=== PATIENT | male | born 1955 | race Caucasian/White ===

== ENCOUNTER → 2016-06-28 | Outpatient (REF) | payer BC | END | disposition home or self-care (01) | LOC: M SFHCPLAZ 14:48 | PROVIDERS: ATTEND Internal Medicine | DX: E11.9 Type 2 diabetes mellitus without complications (principal) ==

== ENCOUNTER → 2016-07-01 | Outpatient (REF) | payer BC | END | disposition home or self-care (01) | LOC: M SFHCPLAZ 15:15 | PROVIDERS: ATTEND Internal Medicine | DX: R10.9 Unspecified abdominal pain (principal) ==

== ENCOUNTER 2016-07-11 16:03 | Emergency (ER) | payer BC ==
[2016-07-11] MEDS ORDERED: MORPHINE 4 MG/ML 1ML SYRINGE As Ordered ONE (18:15)
[2016-07-11] MEDS ORDERED: ONDANSETRON 4MG/2ML VIAL (J2405) As Ordered ONE (18:16)
[2016-07-11 18:34] LABS: BASO % 0.3 % (0.0-1.0); EOS # 0.2 K/mm3 (0.0-0.50); EOS % 2.4 % (0.0-3.0); LARGE UNSTAINED CELL # 0.1 K/mm3 (0.0-0.4); LARGE UNSTAINED CELL % 1.5 % (0.0-4.0); LYMPH % 23.3 % (24.0-44.0); MEAN CORPUSCULAR HEMOGLOBIN 30.6 pg (27.0-33.0); MEAN CORPUSCULAR HGB CONC 34.2 g/dl (32.0-36.5); MEAN CORPUSCULAR VOLUME 89.5 fl (80.0-96.0); MONO # 0.6 K/mm3 (0.0-0.8); MONO % 7.5 % (0.0-5.0); NEUTROPHILS # 5.1 K/mm3 (1.8-7.7); NEUTROPHILS % 64.9 % (36.0-66.0); PLATELET COUNT, AUTOMATED 318 k/mm3 (150-450); RED CELL DISTRIBUTION WIDTH 12.8 % (11.5-14.5); WHITE BLOOD COUNT 7.9 K/mm3 (4.0-10.0)
[2016-07-11 18:54] LABS: ALBUMIN 4.3 GM/DL (3.2-5.2); ALBUMIN/GLOBULIN RATIO 1.16 (1.00-1.93); ALKALINE PHOSPHATASE 81 U/L (45-117); ALT/SGPT 20 U/L (12-78); AMYLASE 35 U/L (25-115); ANION GAP 10 MEQ/L (8-16); AST/SGOT 11 U/L (15-37); BILIRUBIN,DIRECT 0.1 MG/DL (0.0-0.2); BILIRUBIN,TOTAL 0.3 MG/DL (0.2-1.0); BLOOD UREA NITROGEN 20 MG/DL (7-18); CALCIUM LEVEL 9.1 MG/DL (8.5-10.1); CARBON DIOXIDE LEVEL 30 MEQ/L (21-32); CHLORIDE LEVEL 102 MEQ/L (98-107); CREATININE FOR GFR 0.79 MG/DL (0.70-1.30); GLOMERULAR FILTRATION RATE > 60.0 (>56); GLUCOSE, FASTING 107 MG/DL (70-105); POTASSIUM SERUM 3.6 MEQ/L (3.5-5.1); SODIUM LEVEL 142 MEQ/L (136-145)
[2016-07-11] MEDS ORDERED: ISOVUE-370 76% 100ML VIAL (Q9967) As Ordered ONE (19:13)
--- NOTE | 2016-07-11 20:51 | EDDOCDS ---
Nurse's Notes [facility] Name: Massimo Glez Age: 61 yrs Sex: Male : 1955 Arrival Date: 07/11/2016 Time: 16:03 Bed I5 / M5 Private MD: Diagnosis: Other specified diseases of pancreas-PANCREATIC MASS IN HEAD OF PANCREAS 1.8 CM, PANCREATIC DUCT DILATION Presentation: 07/11 16:07 Presenting complaint: Patient states: pt c/o upper and lower abdominal pain over the ead past 2 1/2 weeks, worsening since yesterday. pt states he is to have upper GI scope done end of July for same problem. Adult Sepsis Screening: The patient does not have new or worsening altered mentation. Patient's respiratory rate is less than 22. Systolic blood pressure is greater than 100. Patient has a qSOFA score of 0- Negative Sepsis Screen. Suicide/Homicide risk assessment- the patient denies having any suicidal and/or homicidal ideations and does not present with any other emotional, behavioral or mental health complaints. 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 Transition of care: patient was not received from another setting of care. 16:07 Acuity: TAYLOR Level 3 ead 16:07 Method Of Arrival: Walkin/Carried/Asstd ead Triage Assessment: 16:11 General: Appears in no apparent distress, Behavior is appropriate for age, cooperative. ead Pain: Location: abdomen Pain currently is 8 out of 10 on a pain scale. Neurological: No deficits noted. GI: Abdomen is obese, Reports lower abdominal pain, upper abdominal pain, nausea. Derm: Skin is pink, warm & dry. 16:11 Pt Declines HIV testing. ead Historical: - Allergies: no known allergies; - Home Meds: 1. metformin 1,000 mg Oral tr24 twice a day 2. atorvastatin 40 mg oral tab once daily 3. irbesartan-hydrochlorothiazide 150-12.5 mg oral tab once daily 4. aspirin 81 mg Oral tab once daily 5. Vitamin D Oral 1,000 unit daily 6. pantoprazole 40 mg oral grps 2 times per day - PMHx: Hypertension; Diabetes - NIDDM: controlled; - PSHx: right knee; Cholecystectomy; cyst removed from back of skull; - Social history: Smoking status: Patient states former smoker of tobacco. No barriers to communication noted, The patient speaks fluent Moroccan, Speaks appropriately for age. - Family history: Not pertinent. - : The pt / caregiver states he / she is not on anticoagulants. Home medication list is obtained from the patient. - Exposure Risk Screening:: None identified. Screenin:30 Screening information is obtained from the patient. Primary language is Moroccan. Fall jam1 risk: No risks identified. Assistance ADL's: requires no assistance with activities of daily living. Abuse/DV Screen: The patient / caregiver reports he/she is: not in a situation that causes fear, pain or injury. Nutritional screening: On diabetic diet. Exposure Risk Screening: None identified. Advance Directives: Currently, there is no health care proxy. There is no active DNR order. There is no living will. There is no Power of Billing Administrator. Advance directive information has not previously been placed in an [facility] medical record. Further advance directive information is declined. 20:47 home support is adequate. ld5 Assessment: 18:31 General: Appears in no apparent distress, skin warm and dry color satisfactory. moist jmk pink oral mucosa. Obese abd, non distended with bowel sounds present x 4. Indicates pain to right latera, and upper abd with palpation. GI: Abdomen is flat, non- distended Bowel sounds present X 4 quads. Abd is soft X 4 quads Abd is tender to palpation X 4 quads. 19:30 General: Appears in no apparent distress, Behavior is appropriate for age, cooperative. js15 Neurological: Level of Consciousness is awake, alert, obeys commands, Oriented to person, place, time. Respiratory: Airway is patent Respiratory effort is even, unlabored, Respiratory pattern is regular, symmetrical. Derm: Skin is pink, warm & dry. 20:47 General: Appears in no apparent distress, Behavior is cooperative, quiet. Neurological: ld5 Level of Consciousness is awake, alert. Respiratory: Airway is patent Respiratory effort is even, unlabored. Vital Signs: 16:04 BP 148 / 91; Pulse 92; Resp 16; Temp 97.0(O); Pulse Ox 96% on R/A; Weight 109.32 kg lr2 (R); Height 5 ft. 10 in. (177.80 cm) (R); Pain 8/10; 20:46 BP 138 / 88; Pulse 78; Resp 18; Temp 97.8(O); Pulse Ox 95% on R/A; Pain 0/10; kb5 16:04 Body Mass Index 34.58 (109.32 kg, 177.80 cm) lr2 Vitals: 16:04 Log In Time: July 11, 2016 at 16:03. lr2 ED Course: 16:04 Patient visited by Heather Friedman. lr2 16:04 Patient moved to Waiting lr2 16:06 Patient moved to Pre RCE lr2 16:08 Triage Initiated ead 17:28 Patient visited by Ludmila Singleton RN. ead 17:28 Patient moved to Triage 2 ead 18:02 [facility]. ck7 18:02 Chris Lopez MD is Attending Physician. ck7 18:02 Patient visited by Ananth Reid RPA-C. ck7 18:14 Patient moved to I5 / M5 dsf 18:20 Urinalysis Sent. dsf 18:20 Urine Culture Sent. dsf 18:30 Pt greeted and oriented to ED. Patient advised of names of staff involved in care, jam1 location of call ingram, wait times and NPO status. Patient has correct armband on for positive identification. Placed in gown. Bed in low position. Call light in reach. Side rails up X 1. Adult w/ patient. Door closed. 18:30 Amylase Sent. jmk 18:30 Basic Metabolic Profile Sent. jmk 18:30 CBC with Diff Sent. jmk 18:30 Lipase Sent. jmk 18:30 Liver Profile Sent. jmk 18:45 Patient visited by Ananth Reid RPA-C. ck7 19:16 Patient visited by Ananth Reid RPA-C. ck7 19:54 Patient visited by Derik Loo PCA. kb5 20:33 Patient visited by Ananth Reid RPA-C. ck7 20:38 [facility] is Referral Physician. ck7 20:46 Patient visited by Derik Loo PCA. kb5 20:46 Inserted saline lock: 20 gauge in right antecubital area prior to this Rn's time. ld5 20:47 The patient / caregiver is instructed regarding the plan of care and ED course. ld5 20:47 Discontinued lock intact, bleeding controlled, pressure dressing applied, No ld5 redness/swelling at site. No procedures done that require assistance. 20:50 Patient visited by Heather Arana RN. ld5 Administered Medications: 18:29 Drug: NS 0.9% 1000 ml [sodium chloride 0.9 % intravenous solution] Route: IV; Rate: dls bolus; Site: right antecubital; 20:49 Follow up: IV Status: Completed infusion; IV Intake: 1000ml ld5 18:29 Drug: Ondansetron 4 mg [ondansetron HCl 2 mg/mL intravenous solution (2 mL)] Route: dls IVP; Site: right antecubital; 18:29 Drug: morphine 4 mg [morphine 4 mg/mL intravenous cartridge (1 mL)] Route: IVP; Site: dls right antecubital; 20:49 Follow up: Response: Confirmed pt not driving.; Pain is decreased ld5 Intake: 20:49 IV: 1000.00ml; Total: 1000.00ml. ld5 Order Results: Lab Order: Amylase; SPEC'M 07/11/16 18:28 Test: AMYLASE; Value: 35; Range: 25-115; Units: U/L; Status: F Lab Order: Basic Metabolic Profile; SPEC'M 07/11/16 18:28 Test: GLUCOSE, FASTING; Value: 107; Range: 70-105; Abnormal: Above high normal; Units: MG/DL; Status: F Test: BLOOD UREA NITROGEN; Value: 20; Range: 7-18; Abnormal: Above high normal; Units: MG/DL; Status: F Test: CREATININE FOR GFR; Value: 0.79; Range: 0.70-1.30; Units: MG/DL; Status: F Test: GLOMERULAR FILTRATION RATE; Value: > 60.0; Range: >56; Status: F Test: SODIUM LEVEL; Value: 142; Range: 136-145; Units: MEQ/L; Status: F Test: POTASSIUM SERUM; Value: 3.6; Range: 3.5-5.1; Units: MEQ/L; Status: F Test: CHLORIDE LEVEL; Value: 102; Range: 98-107; Units: MEQ/L; Status: F Test: CARBON DIOXIDE LEVEL; Value: 30; Range: 21-32; Units: MEQ/L; Status: F Test: ANION GAP; Value: 10; Range: 8-16; Units: MEQ/L; Status: F Test: CALCIUM LEVEL; Value: 9.1; Range: 8.5-10.1; Units: MG/DL; Status: F Test Note: ; Units are mL/min/1.73 m2 Chronic Kidney Disease Staging per NKF: Stage I & II GFR >=60 Normal to Mildly Decreased Stage III GFR 30-59 Moderately Decreased Stage IV GFR 15-29 Severely Decreased Stage V GFR <15 Very Little GFR Left ESRD GFR <15 on BOTTLE CARRIER Lab Order: CBC with Diff; SPEC'M 07/11/16 18:28 Test: WHITE BLOOD COUNT; Value: 7.9; Range: 4.0-10.0; Units: K/mm3; Status: F Test: RED BLOOD COUNT; Value: 4.78; Range: 4.30-6.10; Units: M/mm3; Status: F Test: HEMOGLOBIN; Value: 14.6; Range: 14.0-18.0; Units: g/dl; Status: F Test: HEMATOCRIT; Value: 42.7; Range: 42.0-52.0; Units: %; Status: F Test: MEAN CORPUSCULAR VOLUME; Value: 89.5; Range: 80.0-96.0; Units: fl; Status: F Test: MEAN CORPUSCULAR HEMOGLOBIN; Value: 30.6; Range: 27.0-33.0; Units: pg; Status: F Test: MEAN CORPUSCULAR HGB CONC; Value: 34.2; Range: 32.0-36.5; Units: g/dl; Status: F Test: RED CELL DISTRIBUTION WIDTH; Value: 12.8; Range: 11.5-14.5; Units: %; Status: F Test: PLATELET COUNT, AUTOMATED; Value: 318; Range: 150-450; Units: k/mm3; Status: F Test: NEUTROPHILS %; Value: 64.9; Range: 36.0-66.0; Units: %; Status: F Test: LYMPH %; Value: 23.3; Range: 24.0-44.0; Abnormal: Below low normal; Units: %; Status: F Test: MONO %; Value: 7.5; Range: 0.0-5.0; Abnormal: Above high normal; Units: %; Status: F Test: EOS %; Value: 2.4; Range: 0.0-3.0; Units: %; Status: F Test: BASO %; Value: 0.3; Range: 0.0-1.0; Units: %; Status: F Test: LARGE UNSTAINED CELL %; Value: 1.5; Range: 0.0-4.0; Units: %; Status: F Test: NEUTROPHILS #; Value: 5.1; Range: 1.8-7.7; Units: K/mm3; Status: F Test: LYMPH #; Value: 2.0; Range: 1.5-4.5; Units: K/mm3; Status: F Test: MONO #; Value: 0.6; Range: 0.0-0.8; Units: K/mm3; Status: F Test: EOS #; Value: 0.2; Range: 0.0-0.50; Units: K/mm3; Status: F Test: BASO #; Value: 0.0; Range: 0.0-0.2; Units: K/mm3; Status: F Test: LARGE UNSTAINED CELL #; Value: 0.1; Range: 0.0-0.4; Units: K/mm3; Status: F Lab Order: Lipase; [facility] 07/11/16 18:28 Test: LIPASE; Value: 136; Range: 73-393; Units: U/L; Status: F Lab Order: Liver Profile; [facility] 07/11/16 18:28 Test: AST/SGOT; Value: 11; Range: 15-37; Abnormal: Below low normal; Units: U/L; Status: F Test: ALT/SGPT; Value: 20; Range: 12-78; Units: U/L; Status: F Test: ALKALINE PHOSPHATASE; Value: 81; Range: 45-117; Units: U/L; Status: F Test: BILIRUBIN,TOTAL; Value: 0.3; Range: 0.2-1.0; Units: MG/DL; Status: F Test: BILIRUBIN,DIRECT; Value: 0.1; Range: 0.0-0.2; Units: MG/DL; Status: F Test: TOTAL PROTEIN; Value: 8.0; Range: 6.4-8.2; Units: GM/DL; Status: F Test: ALBUMIN; Value: 4.3; Range: 3.2-5.2; Units: GM/DL; Status: F Test: ALBUMIN/GLOBULIN RATIO; Value: 1.16; Range: 1.00-1.93; Status: F Lab Order: Urinalysis; SPEC'M 07/11/16 18:17 Test: APPEARANCE, URINE; Value: CLEAR; Range: CLEAR; Status: F Test: COLOR, URINE; Value: YELLOW; Range: YELLOW; Status: F Test: PH,URINE; Value: 5.0; Range: 5.0-9.0; Units: UNITS; Status: F Test: SPECIFIC GRAVITY URINE AUTO; Value: 1.028; Range: 1.002-1.035; Status: F Test: PROTEIN, URINE AUTO; Value: NEGATIVE; Range: NEGATIVE; Units: mg/dL; Status: F Test: GLUCOSE, URINE (UA) AUTO; Value: 1+; Range: NEGATIVE; Abnormal: Above high normal; Units: mg/dL; Status: F Test: KETONE, URINE AUTO; Value: NEGATIVE; Range: NEGATIVE; Units: mg/dL; Status: F Test: UROBILINOGEN, URINE AUTO; Value: 0.2; Range: 0.0-2.0; Units: mg/dL; Status: F Test: BILIRUBIN, URINE AUTO; Value: NEGATIVE; Range: NEGATIVE; Status: F Test: NITRITE, URINE AUTO; Value: NEGATIVE; Range: NEGATIVE; Status: F Test: LEUKOCYTE ESTERASE, URINE AUTO; Value: NEGATIVE; Range: NEGATIVE; Status: F Test: BLOOD, URINE BLOOD; Value: NEGATIVE; Range: NEGATIVE; Status: F Test: WBC, URINE AUTO; Value: 0; Range: 0-3; Units: /HPF; Status: F Test: RBC, URINE AUTO; Value: 1; Range: 0-3; Units: /HPF; Status: F Test: BACTERIA, URINE AUTO; Value: NEGATIVE; Range: NEGATIVE; Status: F Test: SQUAMOUS EPITHELIAL CELL UR AU; Value: 0; Range: 0-6; Units: /HPF; Status: F Test: MUCUS, URINE; Value: SMALL; Range: NEGATIVE; Status: F Test: HYALINE CAST, URINE AUTO; Value: 0; Range: 0-1; Units: /LPF; Status: F Lab Order: CARDIAC MARKER PANEL; SPEC'M 07/11/16 18:28 Test: CPK CREATINE PHOSPHOKINASE; Value: 152; Range: 39-308; Units: U/L; Status: F Test: CK-MB VALUE MASS; Value: 1.6; Range: 0.0-3.6; Units: NG/ML; Status: F Test: MB/CK RELATIVE INDEX; Value: 1.05; Range: < OR =4; Status: F Test: TROPONIN I; Value: < 0.02; Range: < 0.10; Units: NG/ML; Status: F Test Note: ; DIAGNOSIS CRITERIA MMB ng/ml Relative Index (RI) NON-AMI < or = 5 N/A AJ ZONE > 5 < or = 4 AMI > 5 > 4 Outcome: 20:39 Discharge ordered by Provider. ck7 20:49 Discharge Assessment: Patient awake, alert and oriented x 3. No cognitive and/or ld5 functional deficits noted. Patient verbalized understanding of disposition instructions. patient administered narcotics - yes. Pt provided with safe discharge. The following High Risk Discharge criteria are identified: None. Discharged to home ambulatory, with significant other. Condition: stable. Discharge instructions given to patient, significant other, Instructed on discharge instructions, follow up and referral plans. medication usage, no driving heavy equipment, Demonstrated understanding of instructions, medications, Pt was receptive of discharge instructions/ teaching. Prescriptions given X 2. CT Study completed. Property :Personal belongings accompany Pt. 20:50 Patient left the ED. ld5 Signatures: Narendra Bishop,RN Maisha Mcqueen, RN RN Madonna De La Fuente, SAMPLE CARRIER SAMPLE CARRIER jam1 Derik Loo, SAMPLE CARRIER SAMPLE CARRIER kb5 Heather Arana,RN RN [email or web address] Deysi Brooks,RN RN Ananth Cadet, RPA-C RPA-Cck7 Ludmila Singleton,RN Veronique Paiz,RN ADITYA jsHeather Small2 MTDD
--- NOTE | 2016-07-11 20:51 | EDDOCDS ---
Physician Documentation [facility] Name: Massimo Glez Age: 61 yrs Sex: Male : 1955 Arrival Date: 07/11/2016 Time: 16:03 Bed I5 / M5 Private MD: Disposition: 07/11/16 20:39 Discharged to Home/Self Care. Impression: Other specified diseases of pancreas - PANCREATIC MASS IN HEAD OF PANCREAS 1.8 CM, PANCREATIC DUCT DILATION. - Condition is Stable. - Discharge Instructions: Abdominal Pain, Adult. - Prescriptions for [place] 5- 325 mg Oral Tablet - take 1 tablet by ORAL route every [address] RICHARDS MDD: 4 tabs; 20 tablet. ZOFRAN ODT 4 mg - dissolve 1 tablet by ORAL route 4 times per day As needed do not chew, do not swallow whole; 10 tablet. - Medication Reconciliation, Local Pharmacy Hours form. - [facility] up: [facility]; When: Tomorrow; Reason: Recheck today's complaints, Continuance of care. - Problem is new. - Symptoms have improved. - Notes: PLEASE CALL THE [facility] TOMORROW MORNING, TELL THEM YOU WERE SEEN IN THE ER AND HAD A CT SCAN THAT SHOWS A PANCREATIC MASS AND THEY NEED TO SEE YOU TOMORROW FOR FOLLOW UP AND APPROPRIATE REFERRAL Historical: - Allergies: no known allergies; - Home Meds: 1. metformin 1,000 mg Oral tr24 twice a day 2. atorvastatin 40 mg oral tab once daily 3. irbesartan-hydrochlorothiazide 150-12.5 mg oral tab once daily 4. aspirin 81 mg Oral tab once daily 5. Vitamin D Oral 1,000 unit daily 6. pantoprazole 40 mg oral grps 2 times per day - PMHx: Hypertension; Diabetes - NIDDM: controlled; - PSHx: right knee; Cholecystectomy; cyst removed from back of skull; - Social history: Smoking status: Patient states former smoker of tobacco. No barriers to communication noted, The patient speaks fluent Uzbek, Speaks appropriately for age. - Family history: Not pertinent. - : The pt / caregiver states he / she is not on anticoagulants. Home medication list is obtained from the patient. - Exposure Risk Screening:: None identified. Vital Signs: 07/11 16:04 BP 148 / 91; Pulse 92; Resp 16; Temp 97.0(O); Pulse Ox 96% on R/A; Weight 109.32 kg / lr2 241.01 lbs (R); Height 5 ft. 10 in. (177.80 cm) (R); Pain 8/10; 20:46 BP 138 / 88; Pulse 78; Resp 18; Temp 97.8(O); Pulse Ox 95% on R/A; Pain 0/10; kb5 16:04 Body Mass Index 34.58 (109.32 kg, 177.80 cm) lr2 MDM: 18:13 Undress patient appropriately for examination ordered. ck7 18:13 IV Saline Lock ordered. ck7 18:13 NS 0.9% 1000 ml IV at bolus once ordered. ck7 18:13 Ondansetron 4 mg IVP once ordered. ck7 18:13 morphine 4 mg IVP once ordered. ck7 18:14 Amylase Ordered. EDMS 18:14 Basic Metabolic Profile Ordered. EDMS 18:14 CBC with Diff Ordered. EDMS 18:14 Lipase Ordered. EDMS 18:14 Liver Profile Ordered. EDMS 18:14 Urinalysis Ordered. EDMS 18:14 Urine Culture Ordered. EDMS 18:14 NOTHING BY MOUTH+DIET ordered. EDMS 18:14 CT ABD & PELVIS: IV Contrast Only Ordered. EDMS 18:33 CARDIAC MARKER PANEL Ordered. EDMS 19:03 Basic Metabolic Profile Reviewed. ck7 19:03 CBC with Diff Reviewed. ck7 19:03 Liver Profile Reviewed. ck7 19:03 Urinalysis Reviewed. ck7 19:03 Amylase Reviewed. ck7 19:03 Lipase Reviewed. ck7 19:03 CARDIAC MARKER PANEL Reviewed. ck7 19:17 Financial registration complete. zo Administered Medications: 18:29 Drug: NS 0.9% 1000 ml [sodium chloride 0.9 % intravenous solution] Route: IV; Rate: dls bolus; Site: right antecubital; 20:49 Follow up: IV Status: Completed infusion; IV Intake: 1000ml ld5 18:29 Drug: Ondansetron 4 mg [ondansetron HCl 2 mg/mL intravenous solution (2 mL)] Route: dls IVP; Site: right antecubital; 18:29 Drug: morphine 4 mg [morphine 4 mg/mL intravenous cartridge (1 mL)] Route: IVP; Site: dls right antecubital; 20:49 Follow up: Response: Confirmed pt not driving.; Pain is decreased ld5 Signatures: Dispatcher [employer] EDMS Narendra Bishop,RN RN Casper Acosta Laura, RN RN ld5 Ananth Reid, SPENCER-C RPA-Cck7 Ludmila SingletonRN RN Maisha Forman RN The chart was reviewed and I authenticate all verbal orders and agree with the evaluation and treatment provided.Corrections: (The following items were deleted from the chart) 18:33 18:31 CARDIAC MARKER PANEL+LAB ordered. EDMS EDMS MTDD
--- NOTE | 2016-07-12 07:05 | REP ---
CT abdomen and pelvis with IV but without oral contrast: History: Abdominal pain. Comparison CT study is from May 10, 2001. CT contrast dose: 100 ml of Isovue [address] findings: Preliminary digital rigger up radiograph demonstrates clips in the right upper quadrant. Bowel gas pattern is unremarkable. The lung bases are clear. There is some linear parenchymal fibrosis on the right lung base. The liver and the spleen are normal in size and homogeneous in texture. There is a small low density nodule in the left adrenal gland. This measures 1.8 cm in greatest diameter. It is visible in retrospect on the 2000 prior study when it measured 13 mm. This is compatible with a benign adrenal adenoma. No other adrenal lesion is seen. There are clips in the gallbladder fossa. Kidneys enhance symmetrically. There is a cyst in the lower pole of the left kidney measuring 1.0 cm in greatest diameter. This is unchanged. The pancreas is abnormal. There is atrophy of the body and tail of the pancreas with moderate dilation of the main pancreatic duct measuring up to 8 mm. There is ill-defined fullness in the pancreatic head and the findings are compatible with pancreatic malignancy. There are two small normal-sized lymph nodes anterior to the head of the pancreas. The largest of these measures 1.1 x 0.6 cm. Axial and coronal images demonstrate an ill-defined low density mass in the pancreatic head measuring 1.8 x 1.4 cm. There is subtle effacement of the portosplenic venous confluence by the mass lesion. No focal liver lesion is seen. No other prominent lymph nodes are seen. A normal appendix is seen. There is diverticulosis of the sigmoid colon without CT evidence of diverticulitis. A normal appendix is visible in the right lower quadrant. No bony destructive lesion is seen. Incidental note is made of bilateral L5 spondylolysis and a grade 1, 8 mm, L5-S1 spondylolisthesis. Impression: 1. Findings compatible with pancreatic malignancy including an ill-defined 18 mm low density mass lesion in the head of the pancreas, dilation of the pancreatic duct, atrophy of the body and tail of the pancreas, and two small lymph nodes anterior to the head of the pancreas. There is effacement of the right lateral wall of the portosplenic venous confluence. No hepatic mass lesion is seen. 2. Post cholecystectomy. 3. 1.8 cm low density left adrenal nodule compatible with benign adrenal adenoma. 4. Small cyst lower pole left kidney. 5. Bilateral L5 spondylolysis and grade 1 L5-S1 spondylolisthesis. Signed by Delbert Childress MD 07/12/2016 08:31 A
--- NOTE | 2016-07-13 21:51 | EDDOCDS ---
Physician Documentation [facility] Name: Massimo Glez Age: 61 yrs Sex: Male : 1955 Arrival Date: 07/11/2016 Time: 16:03 Bed I5 / M5 Private MD: Disposition: 07/11/16 20:39 Discharged to Home/Self Care. Impression: Other specified diseases of pancreas - PANCREATIC MASS IN HEAD OF PANCREAS 1.8 CM, PANCREATIC DUCT DILATION. - Condition is Stable. - Discharge Instructions: Abdominal Pain, Adult. - Prescriptions for [place] 5- 325 mg Oral Tablet - take 1 tablet by ORAL route every [address] RICHARDS MDD: 4 tabs; 20 tablet. ZOFRAN ODT 4 mg - dissolve 1 tablet by ORAL route 4 times per day As needed do not chew, do not swallow whole; 10 tablet. - Medication Reconciliation, Local Pharmacy Hours form. - [facility] up: [facility]; When: Tomorrow; Reason: Recheck today's complaints, Continuance of care. - Problem is new. - Symptoms have improved. - Notes: PLEASE CALL THE [facility] TOMORROW MORNING, TELL THEM YOU WERE SEEN IN THE ER AND HAD A CT SCAN THAT SHOWS A PANCREATIC MASS AND THEY NEED TO SEE YOU TOMORROW FOR FOLLOW UP AND APPROPRIATE REFERRAL Historical: - Allergies: no known allergies; - Home Meds: 1. metformin 1,000 mg Oral tr24 twice a day 2. atorvastatin 40 mg oral tab once daily 3. irbesartan-hydrochlorothiazide 150-12.5 mg oral tab once daily 4. aspirin 81 mg Oral tab once daily 5. Vitamin D Oral 1,000 unit daily 6. pantoprazole 40 mg oral grps 2 times per day - PMHx: Hypertension; Diabetes - NIDDM: controlled; - PSHx: right knee; Cholecystectomy; cyst removed from back of skull; - Social history: Smoking status: Patient states former smoker of tobacco. No barriers to communication noted, The patient speaks fluent Swedish, Speaks appropriately for age. - Family history: Not pertinent. - : The pt / caregiver states he / she is not on anticoagulants. Home medication list is obtained from the patient. - Exposure Risk Screening:: None identified. Vital Signs: 07/11 16:04 BP 148 / 91; Pulse 92; Resp 16; Temp 97.0(O); Pulse Ox 96% on R/A; Weight 109.32 kg / lr2 241.01 lbs (R); Height 5 ft. 10 in. (177.80 cm) (R); Pain 8/10; 20:46 BP 138 / 88; Pulse 78; Resp 18; Temp 97.8(O); Pulse Ox 95% on R/A; Pain 0/10; kb5 16:04 Body Mass Index 34.58 (109.32 kg, 177.80 cm) lr2 MDM: 18:13 Undress patient appropriately for examination ordered. ck7 18:13 IV Saline Lock ordered. ck7 18:13 NS 0.9% 1000 ml IV at bolus once ordered. ck7 18:13 Ondansetron 4 mg IVP once ordered. ck7 18:13 morphine 4 mg IVP once ordered. ck7 18:14 Amylase Ordered. EDMS 18:14 Basic Metabolic Profile Ordered. EDMS 18:14 CBC with Diff Ordered. EDMS 18:14 Lipase Ordered. EDMS 18:14 Liver Profile Ordered. EDMS 18:14 Urinalysis Ordered. EDMS 18:14 Urine Culture Ordered. EDMS 18:14 NOTHING BY MOUTH+DIET ordered. EDMS 18:14 CT ABD & PELVIS: IV Contrast Only Ordered. EDMS 18:33 CARDIAC MARKER PANEL Ordered. EDMS 19:03 Basic Metabolic Profile Reviewed. ck7 19:03 CBC with Diff Reviewed. ck7 19:03 Liver Profile Reviewed. ck7 19:03 Urinalysis Reviewed. ck7 19:03 Amylase Reviewed. ck7 19:03 Lipase Reviewed. ck7 19:03 CARDIAC MARKER PANEL Reviewed. ck7 19:17 Financial registration complete. zo 22:01 [facility] Payment Agreement was scanned into [employer] and attached to record. zo 07/13 07:01 ED course: [facility] formal report of ct abd/p for fu. mlg . ml Administered Medications: 07/11 18:29 Drug: NS 0.9% 1000 ml [sodium chloride 0.9 % intravenous solution] Route: IV; Rate: dls bolus; Site: right antecubital; 20:49 Follow up: IV Status: Completed infusion; IV Intake: 1000ml ld5 18:29 Drug: Ondansetron 4 mg [ondansetron HCl 2 mg/mL intravenous solution (2 mL)] Route: dls IVP; Site: right antecubital; 18:29 Drug: morphine 4 mg [morphine 4 mg/mL intravenous cartridge (1 mL)] Route: IVP; Site: dls right antecubital; 20:49 Follow up: Response: Confirmed pt not driving.; Pain is decreased ld5 Signatures: Dispatcher [employer] EDMS Valentine Fulton MD MD ml Knapp, Jean, RN RN Casper Acosta Laura, RN RN ld5 Ananth Reid, RPA-C RPA-Cck7 Ludmila Singleton RN RN ead Scott, Debra RN dls The chart was reviewed and I authenticate all verbal orders and agree with the evaluation and treatment provided.Corrections: (The following items were deleted from the chart) 18:33 18:31 CARDIAC MARKER PANEL+LAB ordered. EDMS EDMS Attachments: 22:01 [facility] Payment Agreement zo Chart [facility]
--- NOTE | 2016-07-13 21:51 | EDDOCDS ---
Physician Documentation [facility] Name: Massimo Glez Age: 61 yrs Sex: Male : 1955 Arrival Date: 07/11/2016 Time: 16:03 Bed I5 / M5 Private MD: Disposition: 07/11/16 20:39 Discharged to Home/Self Care. Impression: Other specified diseases of pancreas - PANCREATIC MASS IN HEAD OF PANCREAS 1.8 CM, PANCREATIC DUCT DILATION. - Condition is Stable. - Discharge Instructions: Abdominal Pain, Adult. - Prescriptions for [place] 5- 325 mg Oral Tablet - take 1 tablet by ORAL route every [address] RICHARDS MDD: 4 tabs; 20 tablet. ZOFRAN ODT 4 mg - dissolve 1 tablet by ORAL route 4 times per day As needed do not chew, do not swallow whole; 10 tablet. - Medication Reconciliation, Local Pharmacy Hours form. - Follow up: [facility]; When: Tomorrow; Reason: Recheck today's complaints, Continuance of care. - Problem is new. - Symptoms have improved. - Notes: PLEASE CALL [facility] TOMORROW MORNING, TELL THEM YOU WERE SEEN IN THE ER AND HAD A CT SCAN THAT SHOWS A PANCREATIC MASS AND THEY NEED TO SEE YOU TOMORROW FOR FOLLOW UP AND APPROPRIATE REFERRAL Historical: - Allergies: no known allergies; - Home Meds: 1. metformin 1,000 mg Oral tr24 twice a day 2. atorvastatin 40 mg oral tab once daily 3. irbesartan-hydrochlorothiazide 150-12.5 mg oral tab once daily 4. aspirin 81 mg Oral tab once daily 5. Vitamin D Oral 1,000 unit daily 6. pantoprazole 40 mg oral grps 2 times per day - PMHx: Hypertension; Diabetes - NIDDM: controlled; - PSHx: right knee; Cholecystectomy; cyst removed from back of skull; - Social history: Smoking status: Patient states former smoker of tobacco. No barriers to communication noted, The patient speaks fluent Hungarian, Speaks appropriately for age. - Family history: Not pertinent. - : The pt / caregiver states he / she is not on anticoagulants. Home medication list is obtained from the patient. - Exposure Risk Screening:: None identified. Vital Signs: 07/11 16:04 BP 148 / 91; Pulse 92; Resp 16; Temp 97.0(O); Pulse Ox 96% on R/A; Weight 109.32 kg / lr2 241.01 lbs (R); Height 5 ft. 10 in. (177.80 cm) (R); Pain 8/10; 20:46 BP 138 / 88; Pulse 78; Resp 18; Temp 97.8(O); Pulse Ox 95% on R/A; Pain 0/10; kb5 16:04 Body Mass Index 34.58 (109.32 kg, 177.80 cm) lr2 MDM: 18:13 Undress patient appropriately for examination ordered. ck7 18:13 IV Saline Lock ordered. ck7 18:13 NS 0.9% 1000 ml IV at bolus once ordered. ck7 18:13 Ondansetron 4 mg IVP once ordered. ck7 18:13 morphine 4 mg IVP once ordered. ck7 18:14 Amylase Ordered. EDMS 18:14 Basic Metabolic Profile Ordered. EDMS 18:14 CBC with Diff Ordered. EDMS 18:14 Lipase Ordered. EDMS 18:14 Liver Profile Ordered. EDMS 18:14 Urinalysis Ordered. EDMS 18:14 Urine Culture Ordered. EDMS 18:14 NOTHING BY MOUTH+DIET ordered. EDMS 18:14 CT ABD & PELVIS: IV Contrast Only Ordered. EDMS 18:33 CARDIAC MARKER PANEL Ordered. EDMS 19:03 Basic Metabolic Profile Reviewed. ck7 19:03 CBC with Diff Reviewed. ck7 19:03 Liver Profile Reviewed. ck7 19:03 Urinalysis Reviewed. ck7 19:03 Amylase Reviewed. ck7 19:03 Lipase Reviewed. ck7 19:03 CARDIAC MARKER PANEL Reviewed. ck7 19:17 Financial registration complete. zo 22:01 [facility] [place] Agreement was scanned into [employer] and attached to record. zo 07/13 07:01 ED course: [facility] formal report of ct abd/p for fu. mlg . ml Administered Medications: 07/11 18:29 Drug: NS 0.9% 1000 ml [sodium chloride 0.9 % intravenous solution] Route: IV; Rate: dls bolus; Site: right antecubital; 20:49 Follow up: IV Status: Completed infusion; IV Intake: 1000ml ld5 18:29 Drug: Ondansetron 4 mg [ondansetron HCl 2 mg/mL intravenous solution (2 mL)] Route: dls IVP; Site: right antecubital; 18:29 Drug: morphine 4 mg [morphine 4 mg/mL intravenous cartridge (1 mL)] Route: IVP; Site: dls right antecubital; 20:49 Follow up: Response: Confirmed pt not driving.; Pain is decreased ld5 Signatures: Dispatcher [employer] EDMS Valentine Fulton MD MD ml Knapp, Jean, RN RN Casper Acosta Laura, RN RN ld5 Ananth Reid, RPA-C RPA-Cck7 Ludmila Singleton RN RN ead Scott, Debra RN dls The chart was reviewed and I authenticate all verbal orders and agree with the evaluation and treatment provided.Corrections: (The following items were deleted from the chart) 18:33 18:31 CARDIAC MARKER PANEL+LAB ordered. EDMS EDMS Attachments: 22:01 [facility] Payment Agreement zo Chart [facility]
--- NOTE | 2016-07-13 21:51 | EDDOCDS ---
Nurse's Notes [facility] Name: Massimo Glez Age: 61 yrs Sex: Male : 1955 Arrival Date: 07/11/2016 Time: 16:03 Bed I5 / M5 Private MD: Diagnosis: Other specified diseases of pancreas-PANCREATIC MASS IN HEAD OF PANCREAS 1.8 CM, PANCREATIC DUCT DILATION Presentation: 07/11 16:07 Presenting complaint: Patient states: pt c/o upper and lower abdominal pain over the ead past 2 1/2 weeks, worsening since yesterday. pt states he is to have upper GI scope done end of July for same problem. Adult Sepsis Screening: The patient does not have new or worsening altered mentation. Patient's respiratory rate is less than 22. Systolic blood pressure is greater than 100. Patient has a qSOFA score of 0- Negative Sepsis Screen. Suicide/Homicide risk assessment- the patient denies having any suicidal and/or homicidal ideations and does not present with any other emotional, behavioral or mental health complaints. Status: Patient is not a fuel injection servicer or dependent. Transition of care: patient was not received from another setting of care. 16:07 Acuity: TAYLOR Level 3 ead 16:07 Method Of Arrival: Walkin/Carried/Asstd ead Triage Assessment: 16:11 General: Appears in no apparent distress, Behavior is appropriate for age, cooperative. ead Pain: Location: abdomen Pain currently is 8 out of 10 on a pain scale. Neurological: No deficits noted. GI: Abdomen is obese, Reports lower abdominal pain, upper abdominal pain, nausea. Derm: Skin is pink, warm & dry. 16:11 Pt Declines HIV testing. ead Historical: - Allergies: no known allergies; - Home Meds: 1. metformin 1,000 mg Oral tr24 twice a day 2. atorvastatin 40 mg oral tab once daily 3. irbesartan-hydrochlorothiazide 150-12.5 mg oral tab once daily 4. aspirin 81 mg Oral tab once daily 5. Vitamin D Oral 1,000 unit daily 6. pantoprazole 40 mg oral grps 2 times per day - PMHx: Hypertension; Diabetes - NIDDM: controlled; - PSHx: right knee; Cholecystectomy; cyst removed from back of skull; - Social history: Smoking status: Patient states former smoker of tobacco. No barriers to communication noted, The patient speaks fluent Austrian, Speaks appropriately for age. - Family history: Not pertinent. - : The pt / caregiver states he / she is not on anticoagulants. Home medication list is obtained from the patient. - Exposure Risk Screening:: None identified. Screenin:30 Screening information is obtained from the patient. Primary language is Austrian. Fall jam1 risk: No risks identified. Assistance ADL's: requires no assistance with activities of daily living. Abuse/DV Screen: The patient / caregiver reports he/she is: not in a situation that causes fear, pain or injury. Nutritional screening: On diabetic diet. Exposure Risk Screening: None identified. Advance Directives: Currently, there is no health care proxy. There is no active DNR order. There is no living will. There is no Power of Teacher Associate. Advance directive information has not previously been placed in an [facility] medical record. Further advance directive information is declined. 20:47 home support is adequate. ld5 Assessment: 18:31 General: Appears in no apparent distress, skin warm and dry color satisfactory. moist jmk pink oral mucosa. Obese abd, non distended with bowel sounds present x 4. Indicates pain to right latera, and upper abd with palpation. GI: Abdomen is flat, non- distended Bowel sounds present X 4 quads. Abd is soft X 4 quads Abd is tender to palpation X 4 quads. 19:30 General: Appears in no apparent distress, Behavior is appropriate for age, cooperative. js15 Neurological: Level of Consciousness is awake, alert, obeys commands, Oriented to person, place, time. Respiratory: Airway is patent Respiratory effort is even, unlabored, Respiratory pattern is regular, symmetrical. Derm: Skin is pink, warm & dry. 20:47 General: Appears in no apparent distress, Behavior is cooperative, quiet. Neurological: ld5 Level of Consciousness is awake, alert. Respiratory: Airway is patent Respiratory effort is even, unlabored. Vital Signs: 16:04 BP 148 / 91; Pulse 92; Resp 16; Temp 97.0(O); Pulse Ox 96% on R/A; Weight 109.32 kg lr2 (R); Height 5 ft. 10 in. (177.80 cm) (R); Pain 8/10; 20:46 BP 138 / 88; Pulse 78; Resp 18; Temp 97.8(O); Pulse Ox 95% on R/A; Pain 0/10; kb5 16:04 Body Mass Index 34.58 (109.32 kg, 177.80 cm) lr2 Vitals: 16:04 Log In Time: July 11, 2016 at 16:03. lr2 ED Course: 16:04 Patient visited by Heather Friedman. lr2 16:04 Patient moved to Waiting lr2 16:06 Patient moved to Pre RCE lr2 16:08 Triage Initiated ead 17:28 Patient visited by Ludmila Singleton RN. ead 17:28 Patient moved to Triage 2 ead 18:02 [facility] Reid [facility]-C [facility] ck7 18:02 Chris Lopez MD is Attending Physician. ck7 18:02 Patient visited by Ananth Reid RPA-C. ck7 18:14 Patient moved to I5 / M5 dsf 18:20 Urinalysis Sent. dsf 18:20 Urine Culture Sent. dsf 18:30 Pt greeted and oriented to ED. Patient advised of names of staff involved in care, jam1 location of call ingram, wait times and NPO status. Patient has correct armband on for positive identification. Placed in gown. Bed in low position. Call light in reach. Side rails up X 1. Adult w/ patient. Door closed. 18:30 Amylase Sent. jmk 18:30 Basic Metabolic Profile Sent. jmk 18:30 CBC with Diff Sent. jmk 18:30 Lipase Sent. jmk 18:30 Liver Profile Sent. jmk 18:45 Patient visited by Ananth Reid RPA-C. ck7 19:16 Patient visited by Ananth Reid RPA-C. ck7 19:54 Patient visited by Derik Loo PCA. kb5 20:33 Patient visited by Ananth Reid RPA-C. ck7 20:38 [facility] is Referral Physician. ck7 20:46 Patient visited by Derik Loo PCA. kb5 20:46 Inserted saline lock: 20 gauge in right antecubital area prior to this Rn's time. ld5 20:47 The patient / caregiver is instructed regarding the plan of care and ED course. ld5 20:47 Discontinued lock intact, bleeding controlled, pressure dressing applied, No ld5 redness/swelling at site. No procedures done that require assistance. 20:50 Patient visited by Heather Arana RN. ld5 22:01 [facility] Payment Agreement was scanned into [employer] and attached to record. zo 07/12 07:23 CT ABD & PELVIS: IV Contrast Only Returned. EDMS Administered Medications: 07/11 18:29 Drug: NS 0.9% 1000 ml [sodium chloride 0.9 % intravenous solution] Route: IV; Rate: dls bolus; Site: right antecubital; 20:49 Follow up: IV Status: Completed infusion; IV Intake: 1000ml ld5 18:29 Drug: Ondansetron 4 mg [ondansetron HCl 2 mg/mL intravenous solution (2 mL)] Route: dls IVP; Site: right antecubital; 18:29 Drug: morphine 4 mg [morphine 4 mg/mL intravenous cartridge (1 mL)] Route: IVP; Site: dls right antecubital; 20:49 Follow up: Response: Confirmed pt not driving.; Pain is decreased ld5 Intake: 20:49 IV: 1000.00ml; Total: 1000.00ml. ld5 Order Results: Lab Order: Amylase; SPEC'M 07/11/16 18:28 Test: AMYLASE; Value: 35; Range: 25-115; Units: U/L; Status: F Lab Order: Basic Metabolic Profile; SPEC'M 07/11/16 18:28 Test: GLUCOSE, FASTING; Value: 107; Range: 70-105; Abnormal: Above high normal; Units: MG/DL; Status: F Test: BLOOD UREA NITROGEN; Value: 20; Range: 7-18; Abnormal: Above high normal; Units: MG/DL; Status: F Test: CREATININE FOR GFR; Value: 0.79; Range: 0.70-1.30; Units: MG/DL; Status: F Test: GLOMERULAR FILTRATION RATE; Value: > 60.0; Range: >56; Status: F Test: SODIUM LEVEL; Value: 142; Range: 136-145; Units: MEQ/L; Status: F Test: POTASSIUM SERUM; Value: 3.6; Range: 3.5-5.1; Units: MEQ/L; Status: F Test: CHLORIDE LEVEL; Value: 102; Range: 98-107; Units: MEQ/L; Status: F Test: CARBON DIOXIDE LEVEL; Value: 30; Range: 21-32; Units: MEQ/L; Status: F Test: ANION GAP; Value: 10; Range: 8-16; Units: MEQ/L; Status: F Test: CALCIUM LEVEL; Value: 9.1; Range: 8.5-10.1; Units: MG/DL; Status: F Test Note: ; Units are mL/min/1.73 m2 Chronic Kidney Disease Staging per NKF: Stage I & II GFR >=60 Normal to Mildly Decreased Stage III GFR 30-59 Moderately Decreased Stage IV GFR 15-29 Severely Decreased Stage V GFR <15 Very Little GFR Left ESRD GFR <15 on SESSIONS CLERK Lab Order: CBC with Diff; SPEC'M 07/11/16 18:28 Test: WHITE BLOOD COUNT; Value: 7.9; Range: 4.0-10.0; Units: K/mm3; Status: F Test: RED BLOOD COUNT; Value: 4.78; Range: 4.30-6.10; Units: M/mm3; Status: F Test: HEMOGLOBIN; Value: 14.6; Range: 14.0-18.0; Units: g/dl; Status: F Test: HEMATOCRIT; Value: 42.7; Range: 42.0-52.0; Units: %; Status: F Test: MEAN CORPUSCULAR VOLUME; Value: 89.5; Range: 80.0-96.0; Units: fl; Status: F Test: MEAN CORPUSCULAR HEMOGLOBIN; Value: 30.6; Range: 27.0-33.0; Units: pg; Status: F Test: MEAN CORPUSCULAR HGB CONC; Value: 34.2; Range: 32.0-36.5; Units: g/dl; Status: F Test: RED CELL DISTRIBUTION WIDTH; Value: 12.8; Range: 11.5-14.5; Units: %; Status: F Test: PLATELET COUNT, AUTOMATED; Value: 318; Range: 150-450; Units: k/mm3; Status: F Test: NEUTROPHILS %; Value: 64.9; Range: 36.0-66.0; Units: %; Status: F Test: LYMPH %; Value: 23.3; Range: 24.0-44.0; Abnormal: Below low normal; Units: %; Status: F Test: MONO %; Value: 7.5; Range: 0.0-5.0; Abnormal: Above high normal; Units: %; Status: F Test: EOS %; Value: 2.4; Range: 0.0-3.0; Units: %; Status: F Test: BASO %; Value: 0.3; Range: 0.0-1.0; Units: %; Status: F Test: LARGE UNSTAINED CELL %; Value: 1.5; Range: 0.0-4.0; Units: %; Status: F Test: NEUTROPHILS #; Value: 5.1; Range: 1.8-7.7; Units: K/mm3; Status: F Test: LYMPH #; Value: 2.0; Range: 1.5-4.5; Units: K/mm3; Status: F Test: MONO #; Value: 0.6; Range: 0.0-0.8; Units: K/mm3; Status: F Test: EOS #; Value: 0.2; Range: 0.0-0.50; Units: K/mm3; Status: F Test: BASO #; Value: 0.0; Range: 0.0-0.2; Units: K/mm3; Status: F Test: LARGE UNSTAINED CELL #; Value: 0.1; Range: 0.0-0.4; Units: K/mm3; Status: F Lab Order: Lipase; [facility] 07/11/16 18:28 Test: LIPASE; Value: 136; Range: 73-393; Units: U/L; Status: F Lab Order: Liver Profile; [facility] 07/11/16 18:28 Test: AST/SGOT; Value: 11; Range: 15-37; Abnormal: Below low normal; Units: U/L; Status: F Test: ALT/SGPT; Value: 20; Range: 12-78; Units: U/L; Status: F Test: ALKALINE PHOSPHATASE; Value: 81; Range: 45-117; Units: U/L; Status: F Test: BILIRUBIN,TOTAL; Value: 0.3; Range: 0.2-1.0; Units: MG/DL; Status: F Test: BILIRUBIN,DIRECT; Value: 0.1; Range: 0.0-0.2; Units: MG/DL; Status: F Test: TOTAL PROTEIN; Value: 8.0; Range: 6.4-8.2; Units: GM/DL; Status: F Test: ALBUMIN; Value: 4.3; Range: 3.2-5.2; Units: GM/DL; Status: F Test: ALBUMIN/GLOBULIN RATIO; Value: 1.16; Range: 1.00-1.93; Status: F Lab Order: Urinalysis; SPEC'M 07/11/16 18:17 Test: APPEARANCE, URINE; Value: CLEAR; Range: CLEAR; Status: F Test: COLOR, URINE; Value: YELLOW; Range: YELLOW; Status: F Test: PH,URINE; Value: 5.0; Range: 5.0-9.0; Units: UNITS; Status: F Test: SPECIFIC GRAVITY URINE AUTO; Value: 1.028; Range: 1.002-1.035; Status: F Test: PROTEIN, URINE AUTO; Value: NEGATIVE; Range: NEGATIVE; Units: mg/dL; Status: F Test: GLUCOSE, URINE (UA) AUTO; Value: 1+; Range: NEGATIVE; Abnormal: Above high normal; Units: mg/dL; Status: F Test: KETONE, URINE AUTO; Value: NEGATIVE; Range: NEGATIVE; Units: mg/dL; Status: F Test: UROBILINOGEN, URINE AUTO; Value: 0.2; Range: 0.0-2.0; Units: mg/dL; Status: F Test: BILIRUBIN, URINE AUTO; Value: NEGATIVE; Range: NEGATIVE; Status: F Test: NITRITE, URINE AUTO; Value: NEGATIVE; Range: NEGATIVE; Status: F Test: LEUKOCYTE ESTERASE, URINE AUTO; Value: NEGATIVE; Range: NEGATIVE; Status: F Test: BLOOD, URINE BLOOD; Value: NEGATIVE; Range: NEGATIVE; Status: F Test: WBC, URINE AUTO; Value: 0; Range: 0-3; Units: /HPF; Status: F Test: RBC, URINE AUTO; Value: 1; Range: 0-3; Units: /HPF; Status: F Test: BACTERIA, URINE AUTO; Value: NEGATIVE; Range: NEGATIVE; Status: F Test: SQUAMOUS EPITHELIAL CELL UR AU; Value: 0; Range: 0-6; Units: /HPF; Status: F Test: MUCUS, URINE; Value: SMALL; Range: NEGATIVE; Status: F Test: HYALINE CAST, URINE AUTO; Value: 0; Range: 0-1; Units: /LPF; Status: F Lab Order: Urine Culture; SPEC'M 07/11/16 18:17 Test: URINE CULTURE; Value: <EXTERNAL COMMENT eCWMed> FULL REPORT IN LAB NOTES (eCW and Medent).; Status: F Test: URINE CULTURE; Value: URINE CULTURE RESULT NO GROWTH; Status: F Lab Order: CARDIAC MARKER PANEL; SPEC'M 07/11/16 18:28 Test: CPK CREATINE PHOSPHOKINASE; Value: 152; Range: 39-308; Units: U/L; Status: F Test: CK-MB VALUE MASS; Value: 1.6; Range: 0.0-3.6; Units: NG/ML; Status: F Test: MB/CK RELATIVE INDEX; Value: 1.05; Range: < OR =4; Status: F Test: TROPONIN I; Value: < 0.02; Range: < 0.10; Units: NG/ML; Status: F Test Note: ; DIAGNOSIS CRITERIA MMB ng/ml Relative Index (RI) NON-AMI < or = 5 N/A AJ ZONE > 5 < or = 4 AMI > 5 > 4 Radiology Order: CT ABD & PELVIS: IV Contrast Only Test: CT ABD & PELVIS: IV Contrast Only REASON FOR EXAMINATION: Abdomen Pain; CT abdomen and pelvis with IV but without oral contrast:; ; History: Abdominal pain.; ; Comparison CT study is from May 10, 2001.; ; CT contrast dose: 100 ml of Isovue 370 is administered intravenously.; ; CT findings: Preliminary digital photo offset printer radiograph demonstrates clips in the; right upper quadrant. Bowel gas pattern is unremarkable. The lung bases are; clear. There is some linear parenchymal fibrosis on the right lung base. The; liver and the spleen are normal in size and homogeneous in texture. There is a; small low density nodule in the left adrenal gland. This measures 1.8 cm in; greatest diameter. It is visible in retrospect on the 2000 prior study when it; measured 13 mm. This is compatible with a benign adrenal adenoma. No other; adrenal lesion is seen. There are clips in the gallbladder fossa. Kidneys; enhance symmetrically. There is a cyst in the lower pole of the left kidney; measuring 1.0 cm in greatest diameter. This is unchanged.; ; The pancreas is abnormal. There is atrophy of the body and tail of the pancreas; with moderate dilation of the main pancreatic duct measuring up to 8 mm. There; is ill-defined fullness in the pancreatic head and the findings are compatible; with pancreatic malignancy. There are two small normal-sized lymph nodes; anterior to the head of the pancreas. The largest of these measures 1.1 x 0.6; cm. Axial and coronal images demonstrate an ill-defined low density mass in the; pancreatic head measuring 1.8 x 1.4 cm. There is subtle effacement of the; portosplenic venous confluence by the mass lesion. No focal liver lesion is; seen. No other prominent lymph nodes are seen. A normal appendix is seen.; There is diverticulosis of the sigmoid colon without CT evidence of; diverticulitis. A normal appendix is visible in the right lower quadrant. No; bony destructive lesion is seen.; ; Incidental note is made of bilateral L5 spondylolysis and a grade 1, 8 mm, L5-S1; spondylolisthesis.; ; Impression:; ; 1. Findings compatible with pancreatic malignancy including an ill-defined 18 mm; low density mass lesion in the head of the pancreas, dilation of the pancreatic; duct, atrophy of the body and tail of the pancreas, and two small lymph nodes; anterior to the head of the pancreas. There is effacement of the right lateral; wall of the portosplenic venous confluence. No hepatic mass lesion is seen.; ; 2. Post cholecystectomy.; ; 3. 1.8 cm low density left adrenal nodule compatible with benign adrenal; adenoma.; ; 4. Small cyst lower pole left kidney.; ; 5. Bilateral L5 spondylolysis and grade 1 L5-S1 spondylolisthesis.; ; ; Signed by; Delbert Childress MD 07/12/2016 08:31 A; Outcome: 20:39 Discharge ordered by Provider. ck7 20:49 Discharge Assessment: Patient awake, alert and oriented x 3. No cognitive and/or ld5 functional deficits noted. Patient verbalized understanding of disposition instructions. patient administered narcotics - yes. Pt provided with safe discharge. The following High Risk Discharge criteria are identified: None. Discharged to home ambulatory, with significant other. Condition: stable. Discharge instructions given to patient, significant other, Instructed on discharge instructions, follow up and referral plans. medication usage, no driving heavy equipment, Demonstrated understanding of instructions, medications, Pt was receptive of discharge instructions/ teaching. Prescriptions given X 2. CT Study completed. Property :Personal belongings accompany Pt. 20:50 Patient left the ED. ld5 Signatures: Dispatcher [employer] EDMS Narendra Bishop,RN RN Maisha Pollock RN RN nneka Beyer Madonna, PAINT DEPARTMENT SUPERVISOR PAINT DEPARTMENT SUPERVISOR jam1 Casper Fuller Kristopher, PAINT DEPARTMENT SUPERVISOR PAINT DEPARTMENT SUPERVISOR kb5 Heather Arana,RN RN ld5 Deysi Brooks,RN RN Ananth Cadet, RPA-C RPA-Cck7 Ludmila Singleton,RN RN Veronique FloresRN RN js15 Heather Friedman lr2 Chart Complete CRUZD
--- NOTE | 2016-07-18 16:34 | EDDOCDS ---
Physician Documentation [facility], [place] Name: Massimo Glez Age: 61 yrs Sex: Male : 1955 Arrival Date: 07/11/2016 Time: 16:03 Bed I5 / M5 Private MD: Disposition: 07/11/16 20:39 Discharged to Home/Self Care. Impression: Other specified diseases of pancreas - PANCREATIC MASS IN HEAD OF PANCREAS 1.8 CM, PANCREATIC DUCT DILATION. - Condition is Stable. - Discharge Instructions: Abdominal Pain, Adult. - Prescriptions for [place] 5- 325 mg Oral Tablet - take 1 tablet by ORAL route every [address] RICHARDS MDD: 4 tabs; 20 tablet. ZOFRAN ODT 4 mg - dissolve 1 tablet by ORAL route 4 times per day As needed do not chew, do not swallow whole; 10 tablet. - Medication Reconciliation, Local Pharmacy Hours form. - [facility] up: [facility]; When: Tomorrow; Reason: Recheck today's complaints, Continuance of care. - Problem is new. - Symptoms have improved. - Notes: PLEASE CALL THE [facility] TOMORROW MORNING, TELL THEM YOU WERE SEEN IN THE ER AND HAD A CT SCAN THAT SHOWS A PANCREATIC MASS AND THEY NEED TO SEE YOU TOMORROW FOR FOLLOW UP AND APPROPRIATE REFERRAL Historical: - Allergies: no known allergies; - Home Meds: 1. metformin 1,000 mg Oral tr24 twice a day 2. atorvastatin 40 mg oral tab once daily 3. irbesartan-hydrochlorothiazide 150-12.5 mg oral tab once daily 4. aspirin 81 mg Oral tab once daily 5. Vitamin D Oral 1,000 unit daily 6. pantoprazole 40 mg oral grps 2 times per day - PMHx: Hypertension; Diabetes - NIDDM: controlled; - PSHx: right knee; Cholecystectomy; cyst removed from back of skull; - Social history: Smoking status: Patient states former smoker of tobacco. No barriers to communication noted, The patient speaks fluent Persian, Speaks appropriately for age. - Family history: Not pertinent. - : The pt / caregiver states he / she is not on anticoagulants. Home medication list is obtained from the patient. - Exposure Risk Screening:: None identified. Vital Signs: 07/11 16:04 BP 148 / 91; Pulse 92; Resp 16; Temp 97.0(O); Pulse Ox 96% on R/A; Weight 109.32 kg / lr2 241.01 lbs (R); Height 5 ft. 10 in. (177.80 cm) (R); Pain 8/10; 20:46 BP 138 / 88; Pulse 78; Resp 18; Temp 97.8(O); Pulse Ox 95% on R/A; Pain 0/10; kb5 16:04 Body Mass Index 34.58 (109.32 kg, 177.80 cm) lr2 MDM: 18:13 Undress patient appropriately for examination ordered. ck7 18:13 IV Saline Lock ordered. ck7 18:13 NS 0.9% 1000 ml IV at bolus once ordered. ck7 18:13 Ondansetron 4 mg IVP once ordered. ck7 18:13 morphine 4 mg IVP once ordered. ck7 18:14 Amylase Ordered. EDMS 18:14 Basic Metabolic Profile Ordered. EDMS 18:14 CBC with Diff Ordered. EDMS 18:14 Lipase Ordered. EDMS 18:14 Liver Profile Ordered. EDMS 18:14 Urinalysis Ordered. EDMS 18:14 Urine Culture Ordered. EDMS 18:14 NOTHING BY MOUTH+DIET ordered. EDMS 18:14 CT ABD & PELVIS: IV Contrast Only Ordered. EDMS 18:33 CARDIAC MARKER PANEL Ordered. EDMS 19:03 Basic Metabolic Profile Reviewed. ck7 19:03 CBC with Diff Reviewed. ck7 19:03 Liver Profile Reviewed. ck7 19:03 Urinalysis Reviewed. ck7 19:03 Amylase Reviewed. ck7 19:03 Lipase Reviewed. ck7 19:03 CARDIAC MARKER PANEL Reviewed. ck7 19:17 Financial registration complete. zo 22:01 [facility] Payment Agreement was scanned into [employer] and attached to record. zo 07/13 07:01 ED course: [facility] faxed formal report of ct abd/p for fu. mlg . ml Administered Medications: 07/11 18:29 Drug: NS 0.9% 1000 ml [sodium chloride 0.9 % intravenous solution] Route: IV; Rate: dls bolus; Site: right antecubital; 20:49 Follow up: IV Status: Completed infusion; IV Intake: 1000ml ld5 18:29 Drug: Ondansetron 4 mg [ondansetron HCl 2 mg/mL intravenous solution (2 mL)] Route: dls IVP; Site: right antecubital; 18:29 Drug: morphine 4 mg [morphine 4 mg/mL intravenous cartridge (1 mL)] Route: IVP; Site: dls right antecubital; 20:49 Follow up: Response: Confirmed pt not driving.; Pain is decreased ld5 Signatures: Dispatcher [employer] EDMS Valentine Fulton MD MD ml Knapp, Jean, RN RN Casper Acosta Laura, RN RN ld5 Ananth Reid, RPA-C RPA-Cck7 Ludmila Singleton RN RN ead Scott, Debra RN dls The chart was reviewed and I authenticate all verbal orders and agree with the evaluation and treatment provided.Corrections: (The following items were deleted from the chart) 18:33 18:31 CARDIAC MARKER PANEL+LAB ordered. EDMS EDMS Attachments: 22:01 [facility] Payment Agreement zo MTDD
--- NOTE | 2016-07-18 16:34 | EDDOCDS ---
Physician Documentation [facility] Name: Massimo Glez Age: 61 yrs Sex: Male : 1955 Arrival Date: 07/11/2016 Time: 16:03 Bed I5 / M5 Private MD: Disposition: 07/11/16 20:39 Discharged to Home/Self Care. Impression: Other specified diseases of pancreas - PANCREATIC MASS IN HEAD OF PANCREAS 1.8 CM, PANCREATIC DUCT DILATION. - Condition is Stable. - Discharge Instructions: Abdominal Pain, Adult. - Prescriptions for [place] 5- 325 mg Oral Tablet - take 1 tablet by ORAL route every [address] RICHARDS MDD: 4 tabs; 20 tablet. ZOFRAN ODT 4 mg - dissolve 1 tablet by ORAL route 4 times per day As needed do not chew, do not swallow whole; 10 tablet. - Medication Reconciliation, Local Pharmacy Hours form. - [facility] up: [facility]; When: Tomorrow; Reason: Recheck today's complaints, Continuance of care. - Problem is new. - Symptoms have improved. - Notes: PLEASE CALL THE [facility] TOMORROW MORNING, TELL THEM YOU WERE SEEN IN THE ER AND HAD A CT SCAN THAT SHOWS A PANCREATIC MASS AND THEY NEED TO SEE YOU TOMORROW FOR FOLLOW UP AND APPROPRIATE REFERRAL Historical: - Allergies: no known allergies; - Home Meds: 1. metformin 1,000 mg Oral tr24 twice a day 2. atorvastatin 40 mg oral tab once daily 3. irbesartan-hydrochlorothiazide 150-12.5 mg oral tab once daily 4. aspirin 81 mg Oral tab once daily 5. Vitamin D Oral 1,000 unit daily 6. pantoprazole 40 mg oral grps 2 times per day - PMHx: Hypertension; Diabetes - NIDDM: controlled; - PSHx: right knee; Cholecystectomy; cyst removed from back of skull; - Social history: Smoking status: Patient states former smoker of tobacco. No barriers to communication noted, The patient speaks fluent Greek, Speaks appropriately for age. - Family history: Not pertinent. - : The pt / caregiver states he / she is not on anticoagulants. Home medication list is obtained from the patient. - Exposure Risk Screening:: None identified. Vital Signs: 07/11 16:04 BP 148 / 91; Pulse 92; Resp 16; Temp 97.0(O); Pulse Ox 96% on R/A; Weight 109.32 kg / lr2 241.01 lbs (R); Height 5 ft. 10 in. (177.80 cm) (R); Pain 8/10; 20:46 BP 138 / 88; Pulse 78; Resp 18; Temp 97.8(O); Pulse Ox 95% on R/A; Pain 0/10; kb5 16:04 Body Mass Index 34.58 (109.32 kg, 177.80 cm) lr2 MDM: 18:13 Undress patient appropriately for examination ordered. ck7 18:13 IV Saline Lock ordered. ck7 18:13 NS 0.9% 1000 ml IV at bolus once ordered. ck7 18:13 Ondansetron 4 mg IVP once ordered. ck7 18:13 morphine 4 mg IVP once ordered. ck7 18:14 Amylase Ordered. EDMS 18:14 Basic Metabolic Profile Ordered. EDMS 18:14 CBC with Diff Ordered. EDMS 18:14 Lipase Ordered. EDMS 18:14 Liver Profile Ordered. EDMS 18:14 Urinalysis Ordered. EDMS 18:14 Urine Culture Ordered. EDMS 18:14 NOTHING BY MOUTH+DIET ordered. EDMS 18:14 CT ABD & PELVIS: IV Contrast Only Ordered. EDMS 18:33 CARDIAC MARKER PANEL Ordered. EDMS 19:03 Basic Metabolic Profile Reviewed. ck7 19:03 CBC with Diff Reviewed. ck7 19:03 Liver Profile Reviewed. ck7 19:03 Urinalysis Reviewed. ck7 19:03 Amylase Reviewed. ck7 19:03 Lipase Reviewed. ck7 19:03 CARDIAC MARKER PANEL Reviewed. ck7 19:17 Financial registration complete. zo 22:01 [facility] Payment Agreement was scanned into [employer] and attached to record. zo 07/13 07:01 ED course: [facility] faxed formal report of ct abd/p for fu. mlg . ml Administered Medications: 07/11 18:29 Drug: NS 0.9% 1000 ml [sodium chloride 0.9 % intravenous solution] Route: IV; Rate: dls bolus; Site: right antecubital; 20:49 Follow up: IV Status: Completed infusion; IV Intake: 1000ml ld5 18:29 Drug: Ondansetron 4 mg [ondansetron HCl 2 mg/mL intravenous solution (2 mL)] Route: dls IVP; Site: right antecubital; 18:29 Drug: morphine 4 mg [morphine 4 mg/mL intravenous cartridge (1 mL)] Route: IVP; Site: dls right antecubital; 20:49 Follow up: Response: Confirmed pt not driving.; Pain is decreased ld5 Signatures: Dispatcher [employer] EDMS Valentine Fulton MD MD ml Knapp, Jean, RN RN Casper Acosta Laura, RN RN ld5 Ananth Reid, RPA-C RPA-Cck7 Ludmila Singleton RN RN ead Scott, Debra RN dls The chart was reviewed and I authenticate all verbal orders and agree with the evaluation and treatment provided.Corrections: (The following items were deleted from the chart) 18:33 18:31 CARDIAC MARKER PANEL+LAB ordered. EDMS EDMS Attachments: 22:01 [facility] Payment Agreement zo MTDD
--- NOTE | 2016-07-18 16:35 | EDDOCDS ---
Nurse's Notes [facility] Name: Massimo Glez Age: 61 yrs Sex: Male : 1955 Arrival Date: 07/11/2016 Time: 16:03 Bed I5 / M5 Private MD: Diagnosis: Other specified diseases of pancreas-PANCREATIC MASS IN HEAD OF PANCREAS 1.8 CM, PANCREATIC DUCT DILATION Presentation: 07/11 16:07 Presenting complaint: Patient states: pt c/o upper and lower abdominal pain over the ead past 2 1/2 weeks, worsening since yesterday. pt states he is to have upper GI scope done end of July for same problem. Adult Sepsis Screening: The patient does not have new or worsening altered mentation. Patient's respiratory rate is less than 22. Systolic blood pressure is greater than 100. Patient has a qSOFA score of 0- Negative Sepsis Screen. Suicide/Homicide risk assessment- the patient denies having any suicidal and/or homicidal ideations and does not present with any other emotional, behavioral or mental health complaints. Status: Patient is not a message and delivery service pricer or dependent. Transition of care: patient was not received from another setting of care. 16:07 Acuity: TAYLOR Level 3 ead 16:07 Method Of Arrival: Walkin/Carried/Asstd ead Triage Assessment: 16:11 General: Appears in no apparent distress, Behavior is appropriate for age, cooperative. ead Pain: Location: abdomen Pain currently is 8 out of 10 on a pain scale. Neurological: No deficits noted. GI: Abdomen is obese, Reports lower abdominal pain, upper abdominal pain, nausea. Derm: Skin is pink, warm & dry. 16:11 Pt Declines HIV testing. ead Historical: - Allergies: no known allergies; - Home Meds: 1. metformin 1,000 mg Oral tr24 twice a day 2. atorvastatin 40 mg oral tab once daily 3. irbesartan-hydrochlorothiazide 150-12.5 mg oral tab once daily 4. aspirin 81 mg Oral tab once daily 5. Vitamin D Oral 1,000 unit daily 6. pantoprazole 40 mg oral grps 2 times per day - PMHx: Hypertension; Diabetes - NIDDM: controlled; - PSHx: right knee; Cholecystectomy; cyst removed from back of skull; - Social history: Smoking status: Patient states former smoker of tobacco. No barriers to communication noted, The patient speaks fluent Finnish, Speaks appropriately for age. - Family history: Not pertinent. - : The pt / caregiver states he / she is not on anticoagulants. Home medication list is obtained from the patient. - Exposure Risk Screening:: None identified. Screenin:30 Screening information is obtained from the patient. Primary language is Finnish. Fall jam1 risk: No risks identified. Assistance ADL's: requires no assistance with activities of daily living. Abuse/DV Screen: The patient / caregiver reports he/she is: not in a situation that causes fear, pain or injury. Nutritional screening: On diabetic diet. Exposure Risk Screening: None identified. Advance Directives: Currently, there is no health care proxy. There is no active DNR order. There is no living will. There is no Power of Electronic Court Recorder. Advance directive information has not previously been placed in an [facility] medical record. Further advance directive information is declined. 20:47 home support is adequate. ld5 Assessment: 18:31 General: Appears in no apparent distress, skin warm and dry color satisfactory. moist jmk pink oral mucosa. Obese abd, non distended with bowel sounds present x 4. Indicates pain to right latera, and upper abd with palpation. GI: Abdomen is flat, non- distended Bowel sounds present X 4 quads. Abd is soft X 4 quads Abd is tender to palpation X 4 quads. 19:30 General: Appears in no apparent distress, Behavior is appropriate for age, cooperative. js15 Neurological: Level of Consciousness is awake, alert, obeys commands, Oriented to person, place, time. Respiratory: Airway is patent Respiratory effort is even, unlabored, Respiratory pattern is regular, symmetrical. Derm: Skin is pink, warm & dry. 20:47 General: Appears in no apparent distress, Behavior is cooperative, quiet. Neurological: ld5 Level of Consciousness is awake, alert. Respiratory: Airway is patent Respiratory effort is even, unlabored. Vital Signs: 16:04 BP 148 / 91; Pulse 92; Resp 16; Temp 97.0(O); Pulse Ox 96% on R/A; Weight 109.32 kg lr2 (R); Height 5 ft. 10 in. (177.80 cm) (R); Pain 8/10; 20:46 BP 138 / 88; Pulse 78; Resp 18; Temp 97.8(O); Pulse Ox 95% on R/A; Pain 0/10; kb5 16:04 Body Mass Index 34.58 (109.32 kg, 177.80 cm) lr2 Vitals: 16:04 Log In Time: July 11, 2016 at 16:03. lr2 ED Course: 16:04 Patient visited by Heather Friedman. lr2 16:04 Patient moved to Waiting lr2 16:06 Patient moved to Pre RCE lr2 16:08 Triage Initiated ead 17:28 Patient visited by Ludmila Singleton RN. ead 17:28 Patient moved to Triage 2 ead 18:02 An[facility] Reid [facility]C [facility] ck7 18:02 Chris Lopez MD is Attending Physician. ck7 18:02 Patient visited by Ananth Reid RPA-C. ck7 18:14 Patient moved to I5 / M5 dsf 18:20 Urinalysis Sent. dsf 18:20 Urine Culture Sent. dsf 18:30 Pt greeted and oriented to ED. Patient advised of names of staff involved in care, jam1 location of call ingram, wait times and NPO status. Patient has correct armband on for positive identification. Placed in gown. Bed in low position. Call light in reach. Side rails up X 1. Adult w/ patient. Door closed. 18:30 Amylase Sent. jmk 18:30 Basic Metabolic Profile Sent. jmk 18:30 CBC with Diff Sent. jmk 18:30 Lipase Sent. jmk 18:30 Liver Profile Sent. jmk 18:45 Patient visited by Ananth Reid RPA-C. ck7 19:16 Patient visited by Ananth Reid RPA-C. ck7 19:54 Patient visited by Derik Loo PCA. kb5 20:33 Patient visited by Ananth Reid RPA-C. ck7 20:38 [facility] is Referral Physician. ck7 20:46 Patient visited by Derik Loo PCA. kb5 20:46 Inserted saline lock: 20 gauge in right antecubital area prior to this Rn's time. ld5 20:47 The patient / caregiver is instructed regarding the plan of care and ED course. ld5 20:47 Discontinued lock intact, bleeding controlled, pressure dressing applied, No ld5 redness/swelling at site. No procedures done that require assistance. 20:50 Patient visited by Heather Arana RN. ld5 22:01 [facility] Payment Agreement was scanned into [email or web address] and attached to record. zo 07/12 07:23 CT ABD & PELVIS: IV Contrast Only Returned. EDMS Administered Medications: 07/11 18:29 Drug: NS 0.9% 1000 ml [sodium chloride 0.9 % intravenous solution] Route: IV; Rate: dls bolus; Site: right antecubital; 20:49 Follow up: IV Status: Completed infusion; IV Intake: 1000ml ld5 18:29 Drug: Ondansetron 4 mg [ondansetron HCl 2 mg/mL intravenous solution (2 mL)] Route: dls IVP; Site: right antecubital; 18:29 Drug: morphine 4 mg [morphine 4 mg/mL intravenous cartridge (1 mL)] Route: IVP; Site: dls right antecubital; 20:49 Follow up: Response: Confirmed pt not driving.; Pain is decreased ld5 Intake: 20:49 IV: 1000.00ml; Total: 1000.00ml. ld5 Order Results: Lab Order: Amylase; SPEC'M 07/11/16 18:28 Test: AMYLASE; Value: 35; Range: 25-115; Units: U/L; Status: F Lab Order: Basic Metabolic Profile; SPEC'M 07/11/16 18:28 Test: GLUCOSE, FASTING; Value: 107; Range: 70-105; Abnormal: Above high normal; Units: MG/DL; Status: F Test: BLOOD UREA NITROGEN; Value: 20; Range: 7-18; Abnormal: Above high normal; Units: MG/DL; Status: F Test: CREATININE FOR GFR; Value: 0.79; Range: 0.70-1.30; Units: MG/DL; Status: F Test: GLOMERULAR FILTRATION RATE; Value: > 60.0; Range: >56; Status: F Test: SODIUM LEVEL; Value: 142; Range: 136-145; Units: MEQ/L; Status: F Test: POTASSIUM SERUM; Value: 3.6; Range: 3.5-5.1; Units: MEQ/L; Status: F Test: CHLORIDE LEVEL; Value: 102; Range: 98-107; Units: MEQ/L; Status: F Test: CARBON DIOXIDE LEVEL; Value: 30; Range: 21-32; Units: MEQ/L; Status: F Test: ANION GAP; Value: 10; Range: 8-16; Units: MEQ/L; Status: F Test: CALCIUM LEVEL; Value: 9.1; Range: 8.5-10.1; Units: MG/DL; Status: F Test Note: ; Units are mL/min/1.73 m2 Chronic Kidney Disease Staging per NKF: Stage I & II GFR >=60 Normal to Mildly Decreased Stage III GFR 30-59 Moderately Decreased Stage IV GFR 15-29 Severely Decreased Stage V GFR <15 Very Little GFR Left ESRD GFR <15 on TRANSCRIBING OPERATORS SUPERVISOR Lab Order: CBC with Diff; SPEC'M 07/11/16 18:28 Test: WHITE BLOOD COUNT; Value: 7.9; Range: 4.0-10.0; Units: K/mm3; Status: F Test: RED BLOOD COUNT; Value: 4.78; Range: 4.30-6.10; Units: M/mm3; Status: F Test: HEMOGLOBIN; Value: 14.6; Range: 14.0-18.0; Units: g/dl; Status: F Test: HEMATOCRIT; Value: 42.7; Range: 42.0-52.0; Units: %; Status: F Test: MEAN CORPUSCULAR VOLUME; Value: 89.5; Range: 80.0-96.0; Units: fl; Status: F Test: MEAN CORPUSCULAR HEMOGLOBIN; Value: 30.6; Range: 27.0-33.0; Units: pg; Status: F Test: MEAN CORPUSCULAR HGB CONC; Value: 34.2; Range: 32.0-36.5; Units: g/dl; Status: F Test: RED CELL DISTRIBUTION WIDTH; Value: 12.8; Range: 11.5-14.5; Units: %; Status: F Test: PLATELET COUNT, AUTOMATED; Value: 318; Range: 150-450; Units: k/mm3; Status: F Test: NEUTROPHILS %; Value: 64.9; Range: 36.0-66.0; Units: %; Status: F Test: LYMPH %; Value: 23.3; Range: 24.0-44.0; Abnormal: Below low normal; Units: %; Status: F Test: MONO %; Value: 7.5; Range: 0.0-5.0; Abnormal: Above high normal; Units: %; Status: F Test: EOS %; Value: 2.4; Range: 0.0-3.0; Units: %; Status: F Test: BASO %; Value: 0.3; Range: 0.0-1.0; Units: %; Status: F Test: LARGE UNSTAINED CELL %; Value: 1.5; Range: 0.0-4.0; Units: %; Status: F Test: NEUTROPHILS #; Value: 5.1; Range: 1.8-7.7; Units: K/mm3; Status: F Test: LYMPH #; Value: 2.0; Range: 1.5-4.5; Units: K/mm3; Status: F Test: MONO #; Value: 0.6; Range: 0.0-0.8; Units: K/mm3; Status: F Test: EOS #; Value: 0.2; Range: 0.0-0.50; Units: K/mm3; Status: F Test: BASO #; Value: 0.0; Range: 0.0-0.2; Units: K/mm3; Status: F Test: LARGE UNSTAINED CELL #; Value: 0.1; Range: 0.0-0.4; Units: K/mm3; Status: F Lab Order: Lipase; [facility] 07/11/16 18:28 Test: LIPASE; Value: 136; Range: 73-393; Units: U/L; Status: F Lab Order: Liver Profile; [facility] 07/11/16 18:28 Test: AST/SGOT; Value: 11; Range: 15-37; Abnormal: Below low normal; Units: U/L; Status: F Test: ALT/SGPT; Value: 20; Range: 12-78; Units: U/L; Status: F Test: ALKALINE PHOSPHATASE; Value: 81; Range: 45-117; Units: U/L; Status: F Test: BILIRUBIN,TOTAL; Value: 0.3; Range: 0.2-1.0; Units: MG/DL; Status: F Test: BILIRUBIN,DIRECT; Value: 0.1; Range: 0.0-0.2; Units: MG/DL; Status: F Test: TOTAL PROTEIN; Value: 8.0; Range: 6.4-8.2; Units: GM/DL; Status: F Test: ALBUMIN; Value: 4.3; Range: 3.2-5.2; Units: GM/DL; Status: F Test: ALBUMIN/GLOBULIN RATIO; Value: 1.16; Range: 1.00-1.93; Status: F Lab Order: Urinalysis; SPEC'M 07/11/16 18:17 Test: APPEARANCE, URINE; Value: CLEAR; Range: CLEAR; Status: F Test: COLOR, URINE; Value: YELLOW; Range: YELLOW; Status: F Test: PH,URINE; Value: 5.0; Range: 5.0-9.0; Units: UNITS; Status: F Test: SPECIFIC GRAVITY URINE AUTO; Value: 1.028; Range: 1.002-1.035; Status: F Test: PROTEIN, URINE AUTO; Value: NEGATIVE; Range: NEGATIVE; Units: mg/dL; Status: F Test: GLUCOSE, URINE (UA) AUTO; Value: 1+; Range: NEGATIVE; Abnormal: Above high normal; Units: mg/dL; Status: F Test: KETONE, URINE AUTO; Value: NEGATIVE; Range: NEGATIVE; Units: mg/dL; Status: F Test: UROBILINOGEN, URINE AUTO; Value: 0.2; Range: 0.0-2.0; Units: mg/dL; Status: F Test: BILIRUBIN, URINE AUTO; Value: NEGATIVE; Range: NEGATIVE; Status: F Test: NITRITE, URINE AUTO; Value: NEGATIVE; Range: NEGATIVE; Status: F Test: LEUKOCYTE ESTERASE, URINE AUTO; Value: NEGATIVE; Range: NEGATIVE; Status: F Test: BLOOD, URINE BLOOD; Value: NEGATIVE; Range: NEGATIVE; Status: F Test: WBC, URINE AUTO; Value: 0; Range: 0-3; Units: /HPF; Status: F Test: RBC, URINE AUTO; Value: 1; Range: 0-3; Units: /HPF; Status: F Test: BACTERIA, URINE AUTO; Value: NEGATIVE; Range: NEGATIVE; Status: F Test: SQUAMOUS EPITHELIAL CELL UR AU; Value: 0; Range: 0-6; Units: /HPF; Status: F Test: MUCUS, URINE; Value: SMALL; Range: NEGATIVE; Status: F Test: HYALINE CAST, URINE AUTO; Value: 0; Range: 0-1; Units: /LPF; Status: F Lab Order: Urine Culture; SPEC'M 07/11/16 18:17 Test: URINE CULTURE; Value: <EXTERNAL COMMENT eCWMed> FULL REPORT IN LAB NOTES (eCW and Medent).; Status: F Test: URINE CULTURE; Value: URINE CULTURE RESULT NO GROWTH; Status: F Lab Order: CARDIAC MARKER PANEL; SPEC'M 07/11/16 18:28 Test: CPK CREATINE PHOSPHOKINASE; Value: 152; Range: 39-308; Units: U/L; Status: F Test: CK-MB VALUE MASS; Value: 1.6; Range: 0.0-3.6; Units: NG/ML; Status: F Test: MB/CK RELATIVE INDEX; Value: 1.05; Range: < OR =4; Status: F Test: TROPONIN I; Value: < 0.02; Range: < 0.10; Units: NG/ML; Status: F Test Note: ; DIAGNOSIS CRITERIA MMB ng/ml Relative Index (RI) NON-AMI < or = 5 N/A AJ ZONE > 5 < or = 4 AMI > 5 > 4 Radiology Order: CT ABD & PELVIS: IV Contrast Only Test: CT ABD & PELVIS: IV Contrast Only REASON FOR EXAMINATION: Abdomen Pain; CT abdomen and pelvis with IV but without oral contrast:; ; History: Abdominal pain.; ; Comparison CT study is from May 10, 2001.; ; CT contrast dose: 100 ml of Isovue 370 is administered intravenously.; ; CT findings: Preliminary digital title clerk radiograph demonstrates clips in the; right upper quadrant. Bowel gas pattern is unremarkable. The lung bases are; clear. There is some linear parenchymal fibrosis on the right lung base. The; liver and the spleen are normal in size and homogeneous in texture. There is a; small low density nodule in the left adrenal gland. This measures 1.8 cm in; greatest diameter. It is visible in retrospect on the 2000 prior study when it; measured 13 mm. This is compatible with a benign adrenal adenoma. No other; adrenal lesion is seen. There are clips in the gallbladder fossa. Kidneys; enhance symmetrically. There is a cyst in the lower pole of the left kidney; measuring 1.0 cm in greatest diameter. This is unchanged.; ; The pancreas is abnormal. There is atrophy of the body and tail of the pancreas; with moderate dilation of the main pancreatic duct measuring up to 8 mm. There; is ill-defined fullness in the pancreatic head and the findings are compatible; with pancreatic malignancy. There are two small normal-sized lymph nodes; anterior to the head of the pancreas. The largest of these measures 1.1 x 0.6; cm. Axial and coronal images demonstrate an ill-defined low density mass in the; pancreatic head measuring 1.8 x 1.4 cm. There is subtle effacement of the; portosplenic venous confluence by the mass lesion. No focal liver lesion is; seen. No other prominent lymph nodes are seen. A normal appendix is seen.; There is diverticulosis of the sigmoid colon without CT evidence of; diverticulitis. A normal appendix is visible in the right lower quadrant. No; bony destructive lesion is seen.; ; Incidental note is made of bilateral L5 spondylolysis and a grade 1, 8 mm, L5-S1; spondylolisthesis.; ; Impression:; ; 1. Findings compatible with pancreatic malignancy including an ill-defined 18 mm; low density mass lesion in the head of the pancreas, dilation of the pancreatic; duct, atrophy of the body and tail of the pancreas, and two small lymph nodes; anterior to the head of the pancreas. There is effacement of the right lateral; wall of the portosplenic venous confluence. No hepatic mass lesion is seen.; ; 2. Post cholecystectomy.; ; 3. 1.8 cm low density left adrenal nodule compatible with benign adrenal; adenoma.; ; 4. Small cyst lower pole left kidney.; ; 5. Bilateral L5 spondylolysis and grade 1 L5-S1 spondylolisthesis.; ; ; Signed by; Delbert Childress MD 07/12/2016 08:31 A; Outcome: 20:39 Discharge ordered by Provider. ck7 20:49 Discharge Assessment: Patient awake, alert and oriented x 3. No cognitive and/or ld5 functional deficits noted. Patient verbalized understanding of disposition instructions. patient administered narcotics - yes. Pt provided with safe discharge. The following High Risk Discharge criteria are identified: None. Discharged to home ambulatory, with significant other. Condition: stable. Discharge instructions given to patient, significant other, Instructed on discharge instructions, follow up and referral plans. medication usage, no driving heavy equipment, Demonstrated understanding of instructions, medications, Pt was receptive of discharge instructions/ teaching. Prescriptions given X 2. CT Study completed. Property :Personal belongings accompany Pt. 20:50 Patient left the ED. ld5 Addendum: 07/18/2016 16:32 Narrative: Patient called back after receiving certified letter - was aware of mass on kcs pancreas and has had f/u - is leaving for [facility] tomorrow. Signatures: Dispatcher [employer] Nayana Diaz, RN RN Narendra Messina,RN RN Maisha Pollock RN RN Madonna De La Fuente, BUSINESS TEACHER BUSINESS TEACHER jam1 Casper Fuller Kristopher, BUSINESS TEACHER BUSINESS TEACHER kb5 Heather Arana,RN RN ld5 Deysi Brooks,RN RN Ananth Cadet, RPA-C RPA-Cck7 Ludmila Singleton,RN Veronique Paiz,RN RN js15 Heather Friedman lr2 [id number]
--- NOTE | 2016-07-18 16:36 | EDDOCDS ---
Physician Documentation [facility] Name: Massimo Glez Age: 61 yrs Sex: Male : 1955 Arrival Date: 07/11/2016 Time: 16:03 Bed I5 / M5 Private MD: Disposition: 07/11/16 20:39 Discharged to Home/Self Care. Impression: Other specified diseases of pancreas - PANCREATIC MASS IN HEAD OF PANCREAS 1.8 CM, PANCREATIC DUCT DILATION. - Condition is Stable. - Discharge Instructions: Abdominal Pain, Adult. - Prescriptions for [place] 5- 325 mg Oral Tablet - take 1 tablet by ORAL route every [address] RICHARDS MDD: 4 tabs; 20 tablet. ZOFRAN ODT 4 mg - dissolve 1 tablet by ORAL route 4 times per day As needed do not chew, do not swallow whole; 10 tablet. - Medication Reconciliation, Local Pharmacy Hours form. - [facility] up: [facility]; When: Tomorrow; Reason: Recheck today's complaints, Continuance of care. - Problem is new. - Symptoms have improved. - Notes: PLEASE CALL THE [facility] TOMORROW MORNING, TELL THEM YOU WERE SEEN IN THE ER AND HAD A CT SCAN THAT SHOWS A PANCREATIC MASS AND THEY NEED TO SEE YOU TOMORROW FOR FOLLOW UP AND APPROPRIATE REFERRAL Historical: - Allergies: no known allergies; - Home Meds: 1. metformin 1,000 mg Oral tr24 twice a day 2. atorvastatin 40 mg oral tab once daily 3. irbesartan-hydrochlorothiazide 150-12.5 mg oral tab once daily 4. aspirin 81 mg Oral tab once daily 5. Vitamin D Oral 1,000 unit daily 6. pantoprazole 40 mg oral grps 2 times per day - PMHx: Hypertension; Diabetes - NIDDM: controlled; - PSHx: right knee; Cholecystectomy; cyst removed from back of skull; - Social history: Smoking status: Patient states former smoker of tobacco. No barriers to communication noted, The patient speaks fluent Polish, Speaks appropriately for age. - Family history: Not pertinent. - : The pt / caregiver states he / she is not on anticoagulants. Home medication list is obtained from the patient. - Exposure Risk Screening:: None identified. Vital Signs: 07/11 16:04 BP 148 / 91; Pulse 92; Resp 16; Temp 97.0(O); Pulse Ox 96% on R/A; Weight 109.32 kg / lr2 241.01 lbs (R); Height 5 ft. 10 in. (177.80 cm) (R); Pain 8/10; 20:46 BP 138 / 88; Pulse 78; Resp 18; Temp 97.8(O); Pulse Ox 95% on R/A; Pain 0/10; kb5 16:04 Body Mass Index 34.58 (109.32 kg, 177.80 cm) lr2 MDM: 18:13 Undress patient appropriately for examination ordered. ck7 18:13 IV Saline Lock ordered. ck7 18:13 NS 0.9% 1000 ml IV at bolus once ordered. ck7 18:13 Ondansetron 4 mg IVP once ordered. ck7 18:13 morphine 4 mg IVP once ordered. ck7 18:14 Amylase Ordered. EDMS 18:14 Basic Metabolic Profile Ordered. EDMS 18:14 CBC with Diff Ordered. EDMS 18:14 Lipase Ordered. EDMS 18:14 Liver Profile Ordered. EDMS 18:14 Urinalysis Ordered. EDMS 18:14 Urine Culture Ordered. EDMS 18:14 NOTHING BY MOUTH+DIET ordered. EDMS 18:14 CT ABD & PELVIS: IV Contrast Only Ordered. EDMS 18:33 CARDIAC MARKER PANEL Ordered. EDMS 19:03 Basic Metabolic Profile Reviewed. ck7 19:03 CBC with Diff Reviewed. ck7 19:03 Liver Profile Reviewed. ck7 19:03 Urinalysis Reviewed. ck7 19:03 Amylase Reviewed. ck7 19:03 Lipase Reviewed. ck7 19:03 CARDIAC MARKER PANEL Reviewed. ck7 19:17 Financial registration complete. zo 22:01 [facility] Payment Agreement was scanned into [employer] and attached to record. zo 07/13 07:01 ED course: [facility] formal report of ct abd/p for fu. mlg . ml Administered Medications: 07/11 18:29 Drug: NS 0.9% 1000 ml [sodium chloride 0.9 % intravenous solution] Route: IV; Rate: dls bolus; Site: right antecubital; 20:49 Follow up: IV Status: Completed infusion; IV Intake: 1000ml ld5 18:29 Drug: Ondansetron 4 mg [ondansetron HCl 2 mg/mL intravenous solution (2 mL)] Route: dls IVP; Site: right antecubital; 18:29 Drug: morphine 4 mg [morphine 4 mg/mL intravenous cartridge (1 mL)] Route: IVP; Site: dls right antecubital; 20:49 Follow up: Response: Confirmed pt not driving.; Pain is decreased ld5 Signatures: Dispatcher [employer] EDMS Valentine Fulton MD MD ml Knapp, Jean, RN RN Casper Acosta Laura, RN RN ld5 Ananth Reid, RPA-C RPA-Cck7 Ludmila Singleton RN RN ead Scott, Debra RN dls The chart was reviewed and I authenticate all verbal orders and agree with the evaluation and treatment provided.Corrections: (The following items were deleted from the chart) 18:33 18:31 CARDIAC MARKER PANEL+LAB ordered. EDMS EDMS Attachments: 22:01 [facility] Payment Agreement zo Chart [facility]
--- NOTE | 2016-07-18 16:36 | EDDOCDS ---
Physician Documentation [facility] Name: Massimo Glez Age: 61 yrs Sex: Male : 1955 Arrival Date: 07/11/2016 Time: 16:03 Bed I5 / M5 Private MD: Disposition: 07/11/16 20:39 Discharged to Home/Self Care. Impression: Other specified diseases of pancreas - PANCREATIC MASS IN HEAD OF PANCREAS 1.8 CM, PANCREATIC DUCT DILATION. - Condition is Stable. - Discharge Instructions: Abdominal Pain, Adult. - Prescriptions for [place] 5- 325 mg Oral Tablet - take 1 tablet by ORAL route every [address] RICHARDS MDD: 4 tabs; 20 tablet. ZOFRAN ODT 4 mg - dissolve 1 tablet by ORAL route 4 times per day As needed do not chew, do not swallow whole; 10 tablet. - Medication Reconciliation, Local Pharmacy Hours form. - Follow up: [facility]; When: Tomorrow; Reason: Recheck today's complaints, Continuance of care. - Problem is new. - Symptoms have improved. - Notes: PLEASE CALL THE [facility] TOMORROW MORNING, TELL THEM YOU WERE SEEN IN THE ER AND HAD A CT SCAN THAT SHOWS A PANCREATIC MASS AND THEY NEED TO SEE YOU TOMORROW FOR FOLLOW UP AND APPROPRIATE REFERRAL Historical: - Allergies: no known allergies; - Home Meds: 1. metformin 1,000 mg Oral tr24 twice a day 2. atorvastatin 40 mg oral tab once daily 3. irbesartan-hydrochlorothiazide 150-12.5 mg oral tab once daily 4. aspirin 81 mg Oral tab once daily 5. Vitamin D Oral 1,000 unit daily 6. pantoprazole 40 mg oral grps 2 times per day - PMHx: Hypertension; Diabetes - NIDDM: controlled; - PSHx: right knee; Cholecystectomy; cyst removed from back of skull; - Social history: Smoking status: Patient states former smoker of tobacco. No barriers to communication noted, The patient speaks fluent Estonian, Speaks appropriately for age. - Family history: Not pertinent. - : The pt / caregiver states he / she is not on anticoagulants. Home medication list is obtained from the patient. - Exposure Risk Screening:: None identified. Vital Signs: 07/11 16:04 BP 148 / 91; Pulse 92; Resp 16; Temp 97.0(O); Pulse Ox 96% on R/A; Weight 109.32 kg / lr2 241.01 lbs (R); Height 5 ft. 10 in. (177.80 cm) (R); Pain 8/10; 20:46 BP 138 / 88; Pulse 78; Resp 18; Temp 97.8(O); Pulse Ox 95% on R/A; Pain 0/10; kb5 16:04 Body Mass Index 34.58 (109.32 kg, 177.80 cm) lr2 MDM: 18:13 Undress patient appropriately for examination ordered. ck7 18:13 IV Saline Lock ordered. ck7 18:13 NS 0.9% 1000 ml IV at bolus once ordered. ck7 18:13 Ondansetron 4 mg IVP once ordered. ck7 18:13 morphine 4 mg IVP once ordered. ck7 18:14 Amylase Ordered. EDMS 18:14 Basic Metabolic Profile Ordered. EDMS 18:14 CBC with Diff Ordered. EDMS 18:14 Lipase Ordered. EDMS 18:14 Liver Profile Ordered. EDMS 18:14 Urinalysis Ordered. EDMS 18:14 Urine Culture Ordered. EDMS 18:14 NOTHING BY MOUTH+DIET ordered. EDMS 18:14 CT ABD & PELVIS: IV Contrast Only Ordered. EDMS 18:33 CARDIAC MARKER PANEL Ordered. EDMS 19:03 Basic Metabolic Profile Reviewed. ck7 19:03 CBC with Diff Reviewed. ck7 19:03 Liver Profile Reviewed. ck7 19:03 Urinalysis Reviewed. ck7 19:03 Amylase Reviewed. ck7 19:03 Lipase Reviewed. ck7 19:03 CARDIAC MARKER PANEL Reviewed. ck7 19:17 Financial registration complete. zo 22:01 [place] Payment Agreement was scanned into [employer] and attached to record. zo 07/13 07:01 ED course: [facility] formal report of ct abd/p for fu. mlg . ml Administered Medications: 07/11 18:29 Drug: NS 0.9% 1000 ml [sodium chloride 0.9 % intravenous solution] Route: IV; Rate: dls bolus; Site: right antecubital; 20:49 Follow up: IV Status: Completed infusion; IV Intake: 1000ml ld5 18:29 Drug: Ondansetron 4 mg [ondansetron HCl 2 mg/mL intravenous solution (2 mL)] Route: dls IVP; Site: right antecubital; 18:29 Drug: morphine 4 mg [morphine 4 mg/mL intravenous cartridge (1 mL)] Route: IVP; Site: dls right antecubital; 20:49 Follow up: Response: Confirmed pt not driving.; Pain is decreased ld5 Signatures: Dispatcher [employer] EDMS Valentine Fulton MD MD ml Knapp, Jean, RN RN Casper Acosta Laura, RN RN ld5 Ananth Reid, RPA-C RPA-Cck7 Ludmila Singleton RN RN ead Scott, Debra RN dls The chart was reviewed and I authenticate all verbal orders and agree with the evaluation and treatment provided.Corrections: (The following items were deleted from the chart) 18:33 18:31 CARDIAC MARKER PANEL+LAB ordered. EDMS EDMS Attachments: 22:01 [facility] Payment Agreement zo Chart [facility]
--- NOTE | 2016-07-18 16:37 | EDDOCDS ---
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 pt states he is to have upper GI scope done end of July for same problem. Adult Sepsis Screening: The patient does not have new or worsening altered mentation. Patient's respiratory rate is less than 22. Systolic blood pressure is greater than 100. Patient has a qSOFA score of 0- Negative Sepsis Screen. Suicide/Homicide risk assessment- the patient denies having any suicidal and/or homicidal ideations and does not present with any other emotional, behavioral or mental health complaints. Status: Patient is not a career services director or dependent. Transition of care: patient was not received from another setting of care. 16:07 Acuity: TAYLOR Level 3 ead 16:07 Method Of Arrival: Walkin/Carried/Asstd ead Triage Assessment: 16:11 General: Appears in no apparent distress, Behavior is appropriate for age, cooperative. ead Pain: Location: abdomen Pain currently is 8 out of 10 on a pain scale. Neurological: No deficits noted. GI: Abdomen is obese, Reports lower abdominal pain, upper abdominal pain, nausea. Derm: Skin is pink, warm & dry. 16:11 Pt Declines HIV testing. ead Historical: - Allergies: no known allergies; - Home Meds: 1. metformin 1,000 mg Oral tr24 twice a day 2. atorvastatin 40 mg oral tab once daily 3. irbesartan-hydrochlorothiazide 150-12.5 mg oral tab once daily 4. aspirin 81 mg Oral tab once daily 5. Vitamin D Oral 1,000 unit daily 6. pantoprazole 40 mg oral grps 2 times per day - PMHx: Hypertension; Diabetes - NIDDM: controlled; - PSHx: right knee; Cholecystectomy; cyst removed from back of skull; - Social history: Smoking status: Patient states former smoker of tobacco. No barriers to communication noted, The patient speaks fluent [place]ian, Speaks appropriately for age. - Family history: Not pertinent. - : The pt / caregiver states he / she is not on anticoagulants. Home medication list is obtained from the patient. - Exposure Risk Screening:: None identified. Screenin:30 Screening information is obtained from the patient. Primary language is Namibian. Fall jam1 risk: No risks identified. Assistance ADL's: requires no assistance with activities of daily living. Abuse/DV Screen: The patient / caregiver reports he/she is: not in a situation that causes fear, pain or injury. Nutritional screening: On diabetic diet. Exposure Risk Screening: None identified. Advance Directives: Currently, there is no health care proxy. There is no active DNR order. There is no living will. There is no Power of Keyboard Operator. Advance directive information has not previously been placed in an [facility] medical record. Further advance directive information is declined. 20:47 home support is adequate. ld5 Assessment: 18:31 General: Appears in no apparent distress, skin warm and dry color satisfactory. moist jmk pink oral mucosa. Obese abd, non distended with bowel sounds present x 4. Indicates pain to right latera, and upper abd with palpation. GI: Abdomen is flat, non- distended Bowel sounds present X 4 quads. Abd is soft X 4 quads Abd is tender to palpation X 4 quads. 19:30 General: Appears in no apparent distress, Behavior is appropriate for age, cooperative. [email or web address] Neurological: Level of Consciousness is awake, alert, obeys commands, Oriented to person, place, time. Respiratory: Airway is patent Respiratory effort is even, unlabored, Respiratory pattern is regular, symmetrical. Derm: Skin is pink, warm & dry. 20:47 General: Appears in no apparent distress, Behavior is cooperative, quiet. Neurological: ld5 Level of Consciousness is awake, alert. Respiratory: Airway is patent Respiratory effort is even, unlabored. Vital Signs: 16:04 BP 148 / 91; Pulse 92; Resp 16; Temp 97.0(O); Pulse Ox 96% on R/A; Weight 109.32 kg lr2 (R); Height 5 ft. 10 in. (177.80 cm) (R); Pain 8/10; 20:46 BP 138 / 88; Pulse 78; Resp 18; Temp 97.8(O); Pulse Ox 95% on R/A; Pain 0/10; kb5 16:04 Body Mass Index 34.58 (109.32 kg, 177.80 cm) lr2 Vitals: 16:04 Log In Time: July 11, 2016 at 16:03. lr2 ED Course: 16:04 Patient visited by Heather Friedman. lr2 16:04 Patient moved to Waiting lr2 16:06 Patient moved to Pre RCE lr2 16:08 Triage Initiated ead 17:28 Patient visited by Ludmila Singleton RN. ead 17:28 Patient moved to Triage 2 ead 18:02 [facility] ck7 18:02 Chris Lopez MD is Attending Physician. ck7 18:02 Patient visited by Ananth Reid RPA-C. ck7 18:14 Patient moved to I5 / M5 dsf 18:20 Urinalysis Sent. dsf 18:20 Urine Culture Sent. dsf 18:30 Pt greeted and oriented to ED. Patient advised of names of staff involved in care, jam1 location of call ingram, wait times and NPO status. Patient has correct armband on for positive identification. Placed in gown. Bed in low position. Call light in reach. Side rails up X 1. Adult w/ patient. Door closed. 18:30 Amylase Sent. jmk 18:30 Basic Metabolic Profile Sent. jmk 18:30 CBC with Diff Sent. jmk 18:30 Lipase Sent. jmk 18:30 Liver Profile Sent. jmk 18:45 Patient visited by Ananth Reid RPA-C. ck7 19:16 Patient visited by Ananth Reid RPA-C. ck7 19:54 Patient visited by Derik Loo PCA. kb5 20:33 Patient visited by Ananth Reid RPA-C. ck7 20:38 [facility] is Referral Physician. ck7 20:46 Patient visited by Derik Loo PCA. kb5 20:46 Inserted saline lock: 20 gauge in right antecubital area prior to this Rn's time. ld5 20:47 The patient / caregiver is instructed regarding the plan of care and ED course. ld5 20:47 Discontinued lock intact, bleeding controlled, pressure dressing applied, No ld5 redness/swelling at site. No procedures done that require assistance. 20:50 Patient visited by Heather Arana RN. ld5 22:01 [facility] Payment Agreement was scanned into [employer] and attached to record. zo 07/12 07:23 CT ABD & PELVIS: IV Contrast Only Returned. EDMS Administered Medications: 07/11 18:29 Drug: NS 0.9% 1000 ml [sodium chloride 0.9 % intravenous solution] Route: IV; Rate: dls bolus; Site: right antecubital; 20:49 Follow up: IV Status: Completed infusion; IV Intake: 1000ml ld5 18:29 Drug: Ondansetron 4 mg [ondansetron HCl 2 mg/mL intravenous solution (2 mL)] Route: dls IVP; Site: right antecubital; 18:29 Drug: morphine 4 mg [morphine 4 mg/mL intravenous cartridge (1 mL)] Route: IVP; Site: dls right antecubital; 20:49 Follow up: Response: Confirmed pt not driving.; Pain is decreased ld5 Intake: 20:49 IV: 1000.00ml; Total: 1000.00ml. ld5 Order Results: Lab Order: Amylase; SPEC'M 07/11/16 18:28 Test: AMYLASE; Value: 35; Range: 25-115; Units: U/L; Status: F Lab Order: Basic Metabolic Profile; SPEC'M 07/11/16 18:28 Test: GLUCOSE, FASTING; Value: 107; Range: 70-105; Abnormal: Above high normal; Units: MG/DL; Status: F Test: BLOOD UREA NITROGEN; Value: 20; Range: 7-18; Abnormal: Above high normal; Units: MG/DL; Status: F Test: CREATININE FOR GFR; Value: 0.79; Range: 0.70-1.30; Units: MG/DL; Status: F Test: GLOMERULAR FILTRATION RATE; Value: > 60.0; Range: >56; Status: F Test: SODIUM LEVEL; Value: 142; Range: 136-145; Units: MEQ/L; Status: F Test: POTASSIUM SERUM; Value: 3.6; Range: 3.5-5.1; Units: MEQ/L; Status: F Test: CHLORIDE LEVEL; Value: 102; Range: 98-107; Units: MEQ/L; Status: F Test: CARBON DIOXIDE LEVEL; Value: 30; Range: 21-32; Units: MEQ/L; Status: F Test: ANION GAP; Value: 10; Range: 8-16; Units: MEQ/L; Status: F Test: CALCIUM LEVEL; Value: 9.1; Range: 8.5-10.1; Units: MG/DL; Status: F Test Note: ; Units are mL/min/1.73 m2 Chronic Kidney Disease Staging per NKF: Stage I & II GFR >=60 Normal to Mildly Decreased Stage III GFR 30-59 Moderately Decreased Stage IV GFR 15-29 Severely Decreased Stage V GFR <15 Very Little GFR Left ESRD GFR <15 on THIRD HELPER Lab Order: CBC with Diff; SPEC'M 07/11/16 18:28 Test: WHITE BLOOD COUNT; Value: 7.9; Range: 4.0-10.0; Units: K/mm3; Status: F Test: RED BLOOD COUNT; Value: 4.78; Range: 4.30-6.10; Units: M/mm3; Status: F Test: HEMOGLOBIN; Value: 14.6; Range: 14.0-18.0; Units: g/dl; Status: F Test: HEMATOCRIT; Value: 42.7; Range: 42.0-52.0; Units: %; Status: F Test: MEAN CORPUSCULAR VOLUME; Value: 89.5; Range: 80.0-96.0; Units: fl; Status: F Test: MEAN CORPUSCULAR HEMOGLOBIN; Value: 30.6; Range: 27.0-33.0; Units: pg; Status: F Test: MEAN CORPUSCULAR HGB CONC; Value: 34.2; Range: 32.0-36.5; Units: g/dl; Status: F Test: RED CELL DISTRIBUTION WIDTH; Value: 12.8; Range: 11.5-14.5; Units: %; Status: F Test: PLATELET COUNT, AUTOMATED; Value: 318; Range: 150-450; Units: k/mm3; Status: F Test: NEUTROPHILS %; Value: 64.9; Range: 36.0-66.0; Units: %; Status: F Test: LYMPH %; Value: 23.3; Range: 24.0-44.0; Abnormal: Below low normal; Units: %; Status: F Test: MONO %; Value: 7.5; Range: 0.0-5.0; Abnormal: Above high normal; Units: %; Status: F Test: EOS %; Value: 2.4; Range: 0.0-3.0; Units: %; Status: F Test: BASO %; Value: 0.3; Range: 0.0-1.0; Units: %; Status: F Test: LARGE UNSTAINED CELL %; Value: 1.5; Range: 0.0-4.0; Units: %; Status: F Test: NEUTROPHILS #; Value: 5.1; Range: 1.8-7.7; Units: K/mm3; Status: F Test: LYMPH #; Value: 2.0; Range: 1.5-4.5; Units: K/mm3; Status: F Test: MONO #; Value: 0.6; Range: 0.0-0.8; Units: K/mm3; Status: F Test: EOS #; Value: 0.2; Range: 0.0-0.50; Units: K/mm3; Status: F Test: BASO #; Value: 0.0; Range: 0.0-0.2; Units: K/mm3; Status: F Test: LARGE UNSTAINED CELL #; Value: 0.1; Range: 0.0-0.4; Units: K/mm3; Status: F Lab Order: Lipase; [facility] 07/11/16 18:28 Test: LIPASE; Value: 136; Range: 73-393; Units: U/L; Status: F Lab Order: Liver Profile; [facility] 07/11/16 18:28 Test: AST/SGOT; Value: 11; Range: 15-37; Abnormal: Below low normal; Units: U/L; Status: F Test: ALT/SGPT; Value: 20; Range: 12-78; Units: U/L; Status: F Test: ALKALINE PHOSPHATASE; Value: 81; Range: 45-117; Units: U/L; Status: F Test: BILIRUBIN,TOTAL; Value: 0.3; Range: 0.2-1.0; Units: MG/DL; Status: F Test: BILIRUBIN,DIRECT; Value: 0.1; Range: 0.0-0.2; Units: MG/DL; Status: F Test: TOTAL PROTEIN; Value: 8.0; Range: 6.4-8.2; Units: GM/DL; Status: F Test: ALBUMIN; Value: 4.3; Range: 3.2-5.2; Units: GM/DL; Status: F Test: ALBUMIN/GLOBULIN RATIO; Value: 1.16; Range: 1.00-1.93; Status: F Lab Order: Urinalysis; SPEC'M 07/11/16 18:17 Test: APPEARANCE, URINE; Value: CLEAR; Range: CLEAR; Status: F Test: COLOR, URINE; Value: YELLOW; Range: YELLOW; Status: F Test: PH,URINE; Value: 5.0; Range: 5.0-9.0; Units: UNITS; Status: F Test: SPECIFIC GRAVITY URINE AUTO; Value: 1.028; Range: 1.002-1.035; Status: F Test: PROTEIN, URINE AUTO; Value: NEGATIVE; Range: NEGATIVE; Units: mg/dL; Status: F Test: GLUCOSE, URINE (UA) AUTO; Value: 1+; Range: NEGATIVE; Abnormal: Above high normal; Units: mg/dL; Status: F Test: KETONE, URINE AUTO; Value: NEGATIVE; Range: NEGATIVE; Units: mg/dL; Status: F Test: UROBILINOGEN, URINE AUTO; Value: 0.2; Range: 0.0-2.0; Units: mg/dL; Status: F Test: BILIRUBIN, URINE AUTO; Value: NEGATIVE; Range: NEGATIVE; Status: F Test: NITRITE, URINE AUTO; Value: NEGATIVE; Range: NEGATIVE; Status: F Test: LEUKOCYTE ESTERASE, URINE AUTO; Value: NEGATIVE; Range: NEGATIVE; Status: F Test: BLOOD, URINE BLOOD; Value: NEGATIVE; Range: NEGATIVE; Status: F Test: WBC, URINE AUTO; Value: 0; Range: 0-3; Units: /HPF; Status: F Test: RBC, URINE AUTO; Value: 1; Range: 0-3; Units: /HPF; Status: F Test: BACTERIA, URINE AUTO; Value: NEGATIVE; Range: NEGATIVE; Status: F Test: SQUAMOUS EPITHELIAL CELL UR AU; Value: 0; Range: 0-6; Units: /HPF; Status: F Test: MUCUS, URINE; Value: SMALL; Range: NEGATIVE; Status: F Test: HYALINE CAST, URINE AUTO; Value: 0; Range: 0-1; Units: /LPF; Status: F Lab Order: Urine Culture; SPEC'M 07/11/16 18:17 Test: URINE CULTURE; Value: <EXTERNAL COMMENT eCWMed> FULL REPORT IN LAB NOTES (eCW and Medent).; Status: F Test: URINE CULTURE; Value: URINE CULTURE RESULT NO GROWTH; Status: F Lab Order: CARDIAC MARKER PANEL; SPEC'M 07/11/16 18:28 Test: CPK CREATINE PHOSPHOKINASE; Value: 152; Range: 39-308; Units: U/L; Status: F Test: CK-MB VALUE MASS; Value: 1.6; Range: 0.0-3.6; Units: NG/ML; Status: F Test: MB/CK RELATIVE INDEX; Value: 1.05; Range: < OR =4; Status: F Test: TROPONIN I; Value: < 0.02; Range: < 0.10; Units: NG/ML; Status: F Test Note: ; DIAGNOSIS CRITERIA MMB ng/ml Relative Index (RI) NON-AMI < or = 5 N/A AJ ZONE > 5 < or = 4 AMI > 5 > 4 Radiology Order: CT ABD & PELVIS: IV Contrast Only Test: CT ABD & PELVIS: IV Contrast Only REASON FOR EXAMINATION: Abdomen Pain; CT abdomen and pelvis with IV but without oral contrast:; ; History: Abdominal pain.; ; Comparison CT study is from May 10, 2001.; ; CT contrast dose: 100 ml of Isovue 370 is administered intravenously.; ; CT findings: Preliminary digital telemarketer radiograph demonstrates clips in the; right upper quadrant. Bowel gas pattern is unremarkable. The lung bases are; clear. There is some linear parenchymal fibrosis on the right lung base. The; liver and the spleen are normal in size and homogeneous in texture. There is a; small low density nodule in the left adrenal gland. This measures 1.8 cm in; greatest diameter. It is visible in retrospect on the 2000 prior study when it; measured 13 mm. This is compatible with a benign adrenal adenoma. No other; adrenal lesion is seen. There are clips in the gallbladder fossa. Kidneys; enhance symmetrically. There is a cyst in the lower pole of the left kidney; measuring 1.0 cm in greatest diameter. This is unchanged.; ; The pancreas is abnormal. There is atrophy of the body and tail of the pancreas; with moderate dilation of the main pancreatic duct measuring up to 8 mm. There; is ill-defined fullness in the pancreatic head and the findings are compatible; with pancreatic malignancy. There are two small normal-sized lymph nodes; anterior to the head of the pancreas. The largest of these measures 1.1 x 0.6; cm. Axial and coronal images demonstrate an ill-defined low density mass in the; pancreatic head measuring 1.8 x 1.4 cm. There is subtle effacement of the; portosplenic venous confluence by the mass lesion. No focal liver lesion is; seen. No other prominent lymph nodes are seen. A normal appendix is seen.; There is diverticulosis of the sigmoid colon without CT evidence of; diverticulitis. A normal appendix is visible in the right lower quadrant. No; bony destructive lesion is seen.; ; Incidental note is made of bilateral L5 spondylolysis and a grade 1, 8 mm, L5-S1; spondylolisthesis.; ; Impression:; ; 1. Findings compatible with pancreatic malignancy including an ill-defined 18 mm; low density mass lesion in the head of the pancreas, dilation of the pancreatic; duct, atrophy of the body and tail of the pancreas, and two small lymph nodes; anterior to the head of the pancreas. There is effacement of the right lateral; wall of the portosplenic venous confluence. No hepatic mass lesion is seen.; ; 2. Post cholecystectomy.; ; 3. 1.8 cm low density left adrenal nodule compatible with benign adrenal; adenoma.; ; 4. Small cyst lower pole left kidney.; ; 5. Bilateral L5 spondylolysis and grade 1 L5-S1 spondylolisthesis.; ; ; Signed by; Delbert Childress MD 07/12/2016 08:31 A; Outcome: 20:39 Discharge ordered by Provider. ck7 20:49 Discharge Assessment: Patient awake, alert and oriented x 3. No cognitive and/or ld5 functional deficits noted. Patient verbalized understanding of disposition instructions. patient administered narcotics - yes. Pt provided with safe discharge. The following High Risk Discharge criteria are identified: None. Discharged to home ambulatory, with significant other. Condition: stable. Discharge instructions given to patient, significant other, Instructed on discharge instructions, follow up and referral plans. medication usage, no driving heavy equipment, Demonstrated understanding of instructions, medications, Pt was receptive of discharge instructions/ teaching. Prescriptions given X 2. CT Study completed. Property :Personal belongings accompany Pt. 20:50 Patient left the ED. ld5 Addendum: 07/18/2016 16:32 Narrative: Patient called back after receiving certified letter - was aware of mass on kcs pancreas and has had f/u - is leaving for [facility] tomorrow. Signatures: Dispatcher [employer] Nayana Diaz, RN RN Narendra Messina,RN RN Maisha Pollock RN RN Madonna De La Fuente, MANAGER HOUSEKEEPING MANAGER HOUSEKEEPING jam1 Casper Fuller Kristopher, MANAGER HOUSEKEEPING MANAGER HOUSEKEEPING kb5 Heather Arana,RN RN ld5 Deysi Brooks,RN RN kassidyf Ananth Reid, RPA-C [id number] Ludmila Singleton,RN Veronique Paiz,RN RN js15 Heather Friedman 2 Chart Complete JAMILAH
== END 2016-07-11 20:50 | disposition home or self-care (01) ==
LOC: M ED 16:03
DX: R19.09 Other intra-abdominal and pelvic swelling, mass and lump (principal); I10 Essential (primary) hypertension; E11.9 Type 2 diabetes mellitus without complications; Z87.891 Personal history of nicotine dependence; Z79.82 Long term (current) use of aspirin; Z79.899 Other long term (current) drug therapy
CPT/HCPCS: 74177; 80048; 80076; 81001; 82150; 82550; 82553; 83690; 85025; 87086; 96361; 96374; 96375; 99284; J2405; Q9967

== ENCOUNTER → 2016-07-12 | Outpatient (REF) | payer BC | LOC: M SFHCPLAZ 10:42 | PROVIDERS: ATTEND Family Medicine | DX: K86.9 Disease of pancreas, unspecified (principal) ==

== ENCOUNTER → 2016-07-25 | Outpatient (REF) | payer BC | LOC: M SFHCPLAZ 14:54 | PROVIDERS: ATTEND Family Medicine | DX: K86.9 Disease of pancreas, unspecified (principal) ==

== ENCOUNTER → 2016-09-09 | Outpatient (CLI) | payer BC ==
[2016-09-09 18:12] LABS: BASO % 0.4 % (0.0-1.0); EOS # 0.3 K/mm3 (0.0-0.50); LARGE UNSTAINED CELL # 0.2 K/mm3 (0.0-0.4); LARGE UNSTAINED CELL % 2.4 % (0.0-4.0); LYMPH # 1.7 K/mm3 (1.5-4.5); LYMPH % 24.7 % (24.0-44.0); MEAN CORPUSCULAR HEMOGLOBIN 29.9 pg (27.0-33.0); MEAN CORPUSCULAR HGB CONC 33.1 g/dl (32.0-36.5); MEAN CORPUSCULAR VOLUME 90.4 fl (80.0-96.0); MONO # 0.5 K/mm3 (0.0-0.8); MONO % 6.9 % (0.0-5.0); NEUTROPHILS % 60.6 % (36.0-66.0); PLATELET COUNT, AUTOMATED 288 k/mm3 (150-450); RED CELL DISTRIBUTION WIDTH 13.5 % (11.5-14.5); WHITE BLOOD COUNT 6.7 K/mm3 (4.0-10.0)
[2016-09-09 18:30] LABS: ALBUMIN 3.7 GM/DL (3.2-5.2); ALBUMIN/GLOBULIN RATIO 1.28 (1.00-1.93); ALKALINE PHOSPHATASE 75 U/L (45-117); ALT/SGPT 34 U/L (12-78); ANION GAP 9 MEQ/L (8-16); AST/SGOT 17 U/L (15-37); BILIRUBIN,TOTAL 0.3 MG/DL (0.2-1.0); BLOOD UREA NITROGEN 18 MG/DL (7-18); CALCIUM LEVEL 8.4 MG/DL (8.5-10.1); CARBON DIOXIDE LEVEL 30 MEQ/L (21-32); CHLORIDE LEVEL 100 MEQ/L (98-107); CREATININE FOR GFR 0.87 MG/DL (0.70-1.30); GLOMERULAR FILTRATION RATE > 60.0 (>56); GLUCOSE, FASTING 108 MG/DL (70-105); POTASSIUM SERUM 3.8 MEQ/L (3.5-5.1); SODIUM LEVEL 139 MEQ/L (136-145); TOTAL PROTEIN 6.6 GM/DL (6.4-8.2)
== END ==
LOC: M SMT 14:55
PROVIDERS: ATTEND Internal Medicine Hematology & Oncology
DX: Z51.89 Encounter for other specified aftercare (principal); C25.0 Malignant neoplasm of head of pancreas

== ENCOUNTER → 2016-10-04 | Outpatient (CLI) | payer BC ==
[2016-10-04 18:43] LABS: ANION GAP 8 MEQ/L (8-16); BLOOD UREA NITROGEN 16 MG/DL (7-18); CALCIUM LEVEL 8.6 MG/DL (8.5-10.1); CARBON DIOXIDE LEVEL 31 MEQ/L (21-32); CHLORIDE LEVEL 99 MEQ/L (98-107); CREATININE FOR GFR 0.76 MG/DL (0.70-1.30); GLOMERULAR FILTRATION RATE > 60.0 (>56); GLUCOSE, FASTING 92 MG/DL (70-105); POTASSIUM SERUM 4.2 MEQ/L (3.5-5.1); SODIUM LEVEL 138 MEQ/L (136-145)
== END ==
LOC: M SMT 13:46
PROVIDERS: ATTEND Student in an Organized Health Care Education/Training Program
DX: E11.9 Type 2 diabetes mellitus without complications (principal)

== ENCOUNTER 2017-01-29 14:19 | Observation (INO) | payer BC ==
[~2017-01-29] VITALS: Ht 177.8 cm; Wt 117.0 kg
[2017-01-29] MEDS ORDERED: HYDR-3713 PO (14:29)
[2017-01-29] MEDS ORDERED: ATOR40TA75 PO (14:29)
[2017-01-29] MEDS ORDERED: METF10004 PO (14:29)
[2017-01-29] MEDS ORDERED: ATIV1TAB10 PO (14:29)
[2017-01-29] MEDS ORDERED: IRBE150T14 PO (14:29)
[2017-01-29] MEDS ORDERED: PROC5INJ PO (14:29)
[2017-01-29] MEDS ORDERED: ASPI81TA85 PO (14:29)
[2017-01-29] MEDS ORDERED: OMEP40CA2 PO (14:29)
[2017-01-29] MEDS ORDERED: NS 500 ML IV ONE ×2 (15:00→16:00)
[2017-01-29] MEDS ORDERED: NS 1,000 ML IV SCH (15:15)
[2017-01-29 15:17] LABS: BASO % 0.7 % (0.0-1.0); EOS # 0.2 K/mm3 (0.0-0.50); EOS % 4.1 % (0.0-3.0); LARGE UNSTAINED CELL # 0.1 K/mm3 (0.0-0.4); LARGE UNSTAINED CELL % 3.4 % (0.0-4.0); LYMPH # 1.1 K/mm3 (1.5-4.5); LYMPH % 26.9 % (24.0-44.0); MEAN CORPUSCULAR HEMOGLOBIN 32.2 pg (27.0-33.0); MEAN CORPUSCULAR HGB CONC 34.9 g/dl (32.0-36.5); MEAN CORPUSCULAR VOLUME 92.5 fl (80.0-96.0); MONO # 0.3 K/mm3 (0.0-0.8); MONO % 6.9 % (0.0-5.0); NEUTROPHILS # 2.3 K/mm3 (1.8-7.7); PLATELET COUNT, AUTOMATED 250 k/mm3 (150-450); RED CELL DISTRIBUTION WIDTH 13.8 % (11.5-14.5); WHITE BLOOD COUNT 3.9 K/mm3 (4.0-10.0)
[2017-01-29 15:21] LABS: INR 0.88
[2017-01-29 15:37] LABS: ALBUMIN 3.6 GM/DL (3.2-5.2); ALBUMIN/GLOBULIN RATIO 0.86 (1.00-1.93); ALKALINE PHOSPHATASE 105 U/L (45-117); ALT/SGPT 41 U/L (12-78); ANION GAP 11 MEQ/L (8-16); AST/SGOT 20 U/L (15-37); BILIRUBIN,DIRECT < 0.1 MG/DL (0.0-0.2); BILIRUBIN,TOTAL 0.3 MG/DL (0.2-1.0); BLOOD UREA NITROGEN 16 MG/DL (7-18); CALCIUM LEVEL 8.8 MG/DL (8.8-10.2); CARBON DIOXIDE LEVEL 28 MEQ/L (21-32); CHLORIDE LEVEL 98 MEQ/L (98-107); CREATININE FOR GFR 0.91 MG/DL (0.70-1.30); GLOMERULAR FILTRATION RATE > 60.0 (>49); GLUCOSE, FASTING 157 MG/DL (80-110); POTASSIUM SERUM 3.2 MEQ/L (3.5-5.1); SODIUM LEVEL 137 MEQ/L (136-145); TOTAL PROTEIN 7.8 GM/DL (6.4-8.2)
--- NOTE | 2017-01-29 15:39 | REP ---
Clinical: Acute abdominal pain. Technique: Upright view of the chest with supine and upright views of the abdomen and pelvis. Findings: Frontal upright view of the chest demonstrates no acute cardiopulmonary process or free air below the diaphragm to suspect pneumoperitoneum. Supine and upright views of the abdomen and pelvis demonstrate nonspecific bowel gas pattern without obstruction or perforation. No organomegaly. No abnormal calcifications. Skeletal structures normal for age. Impression: Nonspecific bowel gas pattern. Signed by Robles Wood MD 01/29/2017 03:30 P
[2017-01-29] MEDS ORDERED: POTASSIUM CHLORIDE 10 MEQ SR TABLET PO ONE ×2 (16:30→20:00)
[2017-01-29] MEDS ORDERED: OMEP20CA3 PO (18:45)
[2017-01-29] MEDS ORDERED: PROC10TA PO (18:46)
[2017-01-29] MEDS ORDERED: VITA100066 PO (18:46)
--- NOTE | 2017-01-29 19:00 | REPUSA ---
CT of the abdomen and pelvis without contrast Clinical statement: Pain. Technique: Multiple axial CT images were obtained from the base of the lungs to the floor of the pelv is utilizing 5 mm axial slices without administration of contrast. Coronal and sagittal reconstructio ns were also obtained. Comparison: 07/11/2016. Findings: Chest: The visualized lung bases are clear. Abdomen: The kidneys are normal in size bilaterally. There is no evidence of hydronephrosis or nephro lithiasis. The left adrenal nodule is stable, measuring 2.4 x 1.9 cm. The liver, spleen, pancreas, an d right adrenal gland are unremarkable. The aorta demonstrates normal caliber and contour. There is n o abdominal lymphadenopathy or ascites. Pelvis: The bowel is unremarkable, with no obstructive or inflammatory changes. The appendix is nuvia l. The urinary bladder is within normal limits. There is no pelvic lymphadenopathy or ascites. The ot her pelvic structures appear unremarkable. Bones: There are no suspicious osseous abnormalities seen. There is moderate degenerative disc diseas e at L5/S1. There is a 8mm anterior spondylolisthesis of L5 upon S1, caused by bilateral pars interar ticularis defects. Impression: 1. No obstructive or inflammatory bowel changes. 2. No evidence of hydronephrosis or nephrolithiasis. 3. Stable left adrenal nodule. 4. Grade 1 anterior spondylolisthesis of L5 upon S1 with moderate degenerative disc disease.
[2017-01-29] MEDS ORDERED: ACETAMINOPHEN TAB 650MG DOSE (2X325MG) PO PRN (19:30)
[2017-01-29] MEDS ORDERED: ONDANSETRON 4MG/2ML VIAL (J2405) IV PRN (19:30)
[2017-01-29] MEDS: NS 1,000 ML IV SCH (19:44)
[2017-01-29] MEDS ORDERED: GLUCAGON FOR INJ 1 MG VIAL (J1610) SC PRN (20:00)
[2017-01-29] MEDS ORDERED: DEXTROSE 50% 50 ML SYRINGE IV PRN (20:00)
[2017-01-29] MEDS ORDERED: GLUCOSE 4 GM CHEW TABLET PO PRN (20:00)
--- NOTE | 2017-01-29 20:33 | HPE ---
DATE OF ADMISSION: 01/29/2017 PRIMARY CARE PROVIDER: [facility]. HISTORY OF PRESENT ILLNESS: This patient is a 62-year-old male with past medical history significant for diabetes, pancreatic cancer status post chemotherapy, hypertension, history of supraventricular tachycardia (SVT), who presented to [facility] on 01/29/2017, for continuous worsening of diarrhea. This year in July, the patient was diagnosed with pancreatic cancer, and the patient's oncologist is in [place]. The patient started on the chemotherapy. His regimen is one week on, one week off, a total of 12 rounds, and lasting for 24 weeks. He finished the last round of chemotherapy on 01/23/2017. Per patient, during the chemotherapy, intermittently he would have some mild adverse reaction to the chemotherapy. Starting on 01/26/2017, the patient started to note increased frequency and severity of the diarrhea. Since the 01/26, the diarrhea has been persistent, initially was 4-5 loose stools a day; however, in the last 24 hours, the patient has been having greater than 12 bouts of loose stool. Due to worsening of the symptoms, the patient came to [facility] for further evaluation. The patient denies any fever or chills, denies any nausea or vomiting, denies any blood in the stool. The patient does complain about lower abdominal pain relieved with each bout of the diarrhea. ALLERGIES: No known drug allergies. HOME MEDICATIONS: - aspirin 81 mg by mouth daily - atorvastatin 20 mg by mouth daily - vitamin D 1000 units by mouth daily - omeprazole 20 mg by mouth daily - Ativan 0.5 mg by mouth every six hours as needed - metformin 1000 mg by mouth twice a day - Compazine 10 mg by mouth every eight hours as needed PAST MEDICAL HISTORY: 1. Pancreatic cancer diagnosed in 07/2016, status post finished course of chemotherapy, last day was 01/23/2017. 2. Dyslipidemia. 3. Hypertension. 4. Type 2 diabetes. 5. History of SVT. PAST SURGICAL HISTORY: 1. Cholecystectomy. 2. Cyst removal in 1975. 3. Right knee repair after a fall. SOCIAL HISTORY: The patient used to smoke one pack daily for 16 years. Quit 25 years ago. Drinks alcoholic beverage rarely. No recreational drug use. REVIEW OF SYSTEMS: GENERAL: No fever, no chills. HEENT: No vision change, no auditory changes. CARDIOVASCULAR: No chest pain, no palpitations. RESPIRATORY: No shortness of breath, no cough, no sputum production. GASTROINTESTINAL (GI): Continues to have worsening of the diarrhea for the past several days. No nausea, no vomiting. Complaining about abdominal pain. MUSCULOSKELETAL: No muscle pain or joint pain. NEUROLOGIC: No numbness, no tingling. OBJECTIVE: VITAL SIGNS: Temperature is 97.8, pulse is 119, respirations 22, blood pressure is 134/93, pulse oximetry 95% on room air. GENERAL: Fatigued, no sign of acute distress. Alert and oriented times three. Morbid obese. HEENT: Normocephalic, atraumatic. Extraocular motor grossly intact. CARDIOVASCULAR: Positive S1, S2. Regular rate. LUNGS: Clear to auscultation bilaterally. ABDOMEN: Soft. Bowel sounds present. Mild tenderness to palpation in the mid lower abdomen. No rebound. MUSCULOSKELETAL: No extremity edema. No sign of cyanosis. There are two tattoos of bilateral shoulders. NEUROLOGIC: Sensation to fine touch grossly intact. Muscle strength 5/5. LABORATORY DATA: WBC 3.9, hemoglobin 13.2, hematocrit 37.8, platelet count 250. Sodium is 137, potassium 3.2, chloride 98, carbon dioxide 28, BUN 16, creatinine 0.91, GFR greater than 60, fasting glucose 157, lactic acid 3.1, calcium 8.8, total bilirubin 0.3, direct bilirubin less than 0.1, AST 30, ALT 41, alkaline phosphatase 105, total protein 7.8, albumin 3.6, lipase 108. PT is 112, INR 0.88. MICROBIOLOGY: GI panel is negative. IMAGING: Abdominal x-ray showed nonspecific bowel gas pattern. CT abdomen and pelvis without contrast showed no obstructive or inflammatory bowel changes. No evidence of hydronephrosis or nephrolithiasis. Stable left renal nodule. Grade 1 anterior spondylolisthesis of the L5-S1 with moderate degenerative disc disease. ASSESSMENT AND PLAN: 1. Severe diarrhea. Admitted to medicine/surgery under observation status. The patient's worsening diarrhea due to chemotherapy-related adverse effect. Gastrointestinal (GI) panel was performed. Infectious disease process not likely. The patient did not have any autoimmune history in the past. Per record, at the time of arrival the patient has tachycardia with tachypnea and the patient also presented with lactic acidosis with hypokalemia. We will continue with fluid resuscitation. We will manage the patient medically. The patient will also have as needed Zofran in case the patient has nausea and vomiting, and we will supplement the potassium accordingly. The patient just finished a course of chemotherapy. The patient may be immunocompromised. We will watch the patient closely. The patient has been taking a combination drug for his high blood pressure. One of the components is hydrochlorothiazide which will be on hold for this moment. Will follow with orthostatic hypotension measurements. 2. Pancreatic cancer, status post chemotherapy. The patient finished 12 rounds of chemotherapy lasting for the last 24 weeks. Last chemotherapy was on 01/23/2017. The patient's oncologist, Dr. River, in [place]. The patient is scheduled to return to his cancer doctor near the end of January for reevaluation and to discuss possible resection. Per the PCP's notes, the appointment is on 02/01/2017, in [facility]. 3. Diabetes. On consistent carbohydrate diet. On sliding scale. Followup with A1c. Discuss holding the metformin 4. Hypertension. Blood pressure medication will be on hold. According to the record, the patient had been taking hydrochlorothiazide/irbesartan. The patient is currently receiving fluid resuscitation for severe diarrhea. We will monitor the blood pressure closely. 5. Dyslipidemia. Continue statin. 6. History of supraventricular tachycardia (SVT), currently in sinus rhythm, rate in the satisfactory range. 7. Deep venous thrombosis (DVT) prophylaxis, on heparin. MTDD
[2017-01-29 20:39] LABS: ANION GAP 9 MEQ/L (8-16); BLOOD UREA NITROGEN 14 MG/DL (7-18); CALCIUM LEVEL 8.4 MG/DL (8.8-10.2); CARBON DIOXIDE LEVEL 30 MEQ/L (21-32); CHLORIDE LEVEL 101 MEQ/L (98-107); CREATININE FOR GFR 0.75 MG/DL (0.70-1.30); GLOMERULAR FILTRATION RATE > 60.0 (>49); GLUCOSE, FASTING 107 MG/DL (80-110); POTASSIUM SERUM 3.8 MEQ/L (3.5-5.1); SODIUM LEVEL 140 MEQ/L (136-145)
[2017-01-29 20:46] VITALS: BP 138/92
[2017-01-29] MEDS ORDERED: HumaLOG INSULIN (NovoLOG) PER UNIT SC SCH (21:00)
[2017-01-29] MEDS: HEPARIN SOD (PORCINE) 5000 UNITS/ML VIAL SC SCH (21:26)
[2017-01-30 00:32] VITALS: BP_SYST 125; BP_SYST 138; BP_SYST 143; BP_DIAS 80; BP_DIAS 81; BP_DIAS 83
[2017-01-30 00:34] VITALS: BP_SYST 125; BP_SYST 138; BP_SYST 143; BP_DIAS 80; BP_DIAS 83; BP_DIAS 91
[2017-01-30 01:25] LABS: ANION GAP 7 MEQ/L (8-16); BLOOD UREA NITROGEN 12 MG/DL (7-18); CALCIUM LEVEL 8.3 MG/DL (8.8-10.2); CARBON DIOXIDE LEVEL 28 MEQ/L (21-32); CHLORIDE LEVEL 102 MEQ/L (98-107); CREATININE FOR GFR 0.69 MG/DL (0.70-1.30); GLOMERULAR FILTRATION RATE > 60.0 (>49); GLUCOSE, FASTING 125 MG/DL (80-110); POTASSIUM SERUM 3.5 MEQ/L (3.5-5.1); SODIUM LEVEL 137 MEQ/L (136-145)
[2017-01-30] MEDS: HEPARIN SOD (PORCINE) 5000 UNITS/ML VIAL SC SCH ×2 (05:21→14:00)
[2017-01-30] MEDS: NS 1,000 ML IV SCH ×2 (05:41→15:42)
[2017-01-30 06:00] VITALS: BP 135/86
[2017-01-30 06:29] LABS: ANION GAP 9 MEQ/L (8-16); BLOOD UREA NITROGEN 11 MG/DL (7-18); CALCIUM LEVEL 8.2 MG/DL (8.8-10.2); CARBON DIOXIDE LEVEL 26 MEQ/L (21-32); CHLORIDE LEVEL 105 MEQ/L (98-107); CREATININE FOR GFR 0.65 MG/DL (0.70-1.30); GLOMERULAR FILTRATION RATE > 60.0 (>49); GLUCOSE, FASTING 112 MG/DL (80-110); MAGNESIUM LEVEL 2.1 MG/DL (1.8-2.4); POTASSIUM SERUM 3.5 MEQ/L (3.5-5.1); SODIUM LEVEL 140 MEQ/L (136-145)
[2017-01-30 06:34] LABS: MEAN CORPUSCULAR HEMOGLOBIN 31.6 pg (27.0-33.0); MEAN CORPUSCULAR HGB CONC 33.3 g/dl (32.0-36.5); MEAN CORPUSCULAR VOLUME 94.9 fl (80.0-96.0); RED CELL DISTRIBUTION WIDTH 14.3 % (11.5-14.5); WHITE BLOOD COUNT 2.9 K/mm3 (4.0-10.0)
--- NOTE | 2017-01-30 08:02 | ECGEPIP ---
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
[2017-01-30] MEDS: OMEPRAZOLE 20 MG CAP PO SCH ×2 (08:52→09:10)
[2017-01-30] MEDS: HumaLOG INSULIN (NovoLOG) PER UNIT SC SCH ×3 (08:53→17:13)
[2017-01-30] MEDS ORDERED: VITAMIN D 1,000 INTERNATIONAL UNITS TABLET PO SCH (09:00)
[2017-01-30] MEDS ORDERED: ASPIRIN 81 MG ENTERIC TAB PO SCH (09:00)
[2017-01-30] MEDS ORDERED: ATORVASTATIN 20 MG TAB PO SCH (09:00)
[2017-01-30 09:11] VITALS: BP_SYST 138; BP_SYST 148; BP_DIAS 68; BP_DIAS 70; BP_DIAS 88
[2017-01-30 10:00] VITALS: BP 128/84
--- NOTE | 2017-01-30 10:56 | IPNPDOC ---
Subjective Date Seen The patient was seen on 01/30/17. Subjective Chief Complaint/HPI The patient is a 62-year-old male admitted with a reason for visit of Diarrhea, Lactic Acid Acidosis. General: Denies: Chills Constitutional: Denies: Chills, Fever, Malaise, Night Sweats Eyes: Denies: Pain, Vision change, Conjunctivae inflammation ENT: Denies: Head Aches Skin: Denies: Rash, Lesions, Jaundice Pulmonary: Denies: Dyspnea, Cough Cardiovascular: Denies: Chest Pain, Palpitations, Orthopnea Gastrointestinal: Reports: Diarrhea, Denies: Nausea, Vomiting, Abdominal Pain, Constipation, Melena, Hematochezia Genitourinary: Denies: Dysuria Hematologic: Denies: Bruising Neurological: Denies: Weakness, Numbness, Incoordination Objective Physical Examination General Exam: Positive: Alert, Cooperative, No Acute Distress Eye Exam: Positive: Conjunctiva & lids normal, EOMI, Negative: Sclera icteric ENT Exam: Positive: Mucous membr. moist/pink, Pharynx Normal Neck Exam: Positive: Supple, Negative: JVD Chest Exam: Positive: Clear to auscultation, Normal air movement, Negative: Rales, Rhonchi, Wheezing, Diminished Heart Exam: Positive: Rate Normal, Normal S1, Normal S2, Negative: Gallops, Murmurs, Rubs Telemetry: Positive: No significant arrhythmia Abdomen Exam: Positive: Normal bowel sounds, Soft, Negative: Tenderness, Hepatospenomegaly, Mass Extremity Exam: Negative: Clubbing, Cyanosis, Edema Psych Exam: Positive: Mental status NL Assessment /Plan Problems (1) Diarrhea Status: Acute Response to Treatment: Stable Problem Text: pt still complains of profuse stool, watery. States it has gotten a little better. Denies nausea. Will continue with IV hydration at this time, pt states that other than frequent stooling, he feels well. + stool lactoferrin (2) Dehydration Status: Acute Response to Treatment: Stable Problem Text: continue with IV hydration pt feels well today (3) Pancreatic cancer Status: Chronic Response to Treatment: Stable Problem Text: Is s/p 12 rounds of chemotherapy, last dose was one week ago. Pt. does have f/u appt with (and is followed by) Jonathan Knight on 02-01-17 receiving specialist for further evaluation of possible resection, pt states he would like to leave early in the morning to allow himself enough time to drive the 6 hours to be there for his appt on Mon. (4) Hypokalemia Status: Acute Response to Treatment: Stable Problem Text: stable-K is now 3.5 after replacement will continue to monitor (5) Lactic acid acidosis Status: Acute Response to Treatment: Stable Problem Text: seems to be improving with fluid IV hydration last lactic was elevated to 2.2, will recheck. Plan/VTE VTE Prophylaxis Ordered?: Yes VS, I&O, 24H, Fishbone Vital Signs/I&O Vital Signs Date Time Temp Pulse Resp B/P (MAP) Pulse Ox O2 Delivery O2 Flow Rate FiO2 01/30/17 09:11 92 148/88 (108) 102 138/70 (92) 82 138/68 (91) 01/30/17 06:00 98.9 16 90 Room Air I&O- Last 24 Hours up to 6 AM 01/30/17 05:59 Intake Total 1760 ml Balance 1760 ml Laboratory Data 24H LABS Laboratory Tests 2 01/29/17 15:07: Prothrombin Time 12.0L, Prothromb Time International Ratio 0.88 01/29/17 15:08: White Blood Count 3.9L, Red Blood Count 4.09L, Hemoglobin 13.2L, Hematocrit 37.8L, Mean Corpuscular Volume 92.5, Mean Corpuscular Hemoglobin 32.2, Mean Corpuscular Hemoglobin Concent 34.9, Red Cell Distribution Width 13.8, Platelet Count 250, Neutrophils (%) (Auto) 58.0, Lymphocytes (%) (Auto) 26.9, Monocytes ( %) (Auto) 6.9H, Eosinophils (%) (Auto) 4.1H, Basophils (%) (Auto) 0.7, Neutrophils # (Auto) 2.3, Lymphocytes # (Auto) 1.1L, Monocytes # (Auto) 0.3, Eosinophils # (Auto) 0.2, Basophils # (Auto) 0.0, Large Unclassified Cells % 3.4 , Large Unclassified Cells # 0.1, Anion Gap 11, Glomerular Filtration Rate > 60.0, Lactic Acid Level 3.1*H, Calcium Level 8.8, Aspartate Amino Transf (AST/ SGOT) 20, Alanine Aminotransferase (ALT/SGPT) 41, Alkaline Phosphatase 105, Total Bilirubin 0.3, Direct Bilirubin < 0.1, C-Reactive Protein, Quantitative 0.59H, Total Protein 7.8, Albumin 3.6, Albumin/Globulin Ratio 0.86L, Lipase 108 01/29/17 19:04: Lactic Acid Followup at 4 Hours 2.2*H 01/29/17 19:35: Erythrocyte Sedimentation Rate 66H 01/29/17 20:08: Anion Gap 9, Glomerular Filtration Rate > 60.0, Blood Urea Nitrogen 14, Creatinine 0.75, Sodium Level 140, Potassium Level 3.8, Chloride Level 101, Carbon Dioxide Level 30, Calcium Level 8.4L 01/29/17 20:20: Bedside Glucose (Misc Panel) 123H 01/30/17 00:59: Anion Gap 7L, Glomerular Filtration Rate > 60.0, Blood Urea Nitrogen 12, Creatinine 0.69L, Sodium Level 137, Potassium Level 3.5, Chloride Level 102, Carbon Dioxide Level 28, Calcium Level 8.3L 01/30/17 05:53: Anion Gap 9, Glomerular Filtration Rate > 60.0, Blood Urea Nitrogen 11, Creatinine 0.65L, Sodium Level 140, Potassium Level 3.5, Chloride Level 105, Carbon Dioxide Level 26, Calcium Level 8.2L, Estimated Mean Plasma Glucose 143H , Hemoglobin A1c 6.6H, Magnesium Level 2.1, Thyroid Stimulating Hormone (TSH) 1.880 CBC/BMP Laboratory Tests 01/29/17 15:08 Red Blood Count 4.09 L, Mean Corpuscular Volume 92.5, Mean Corpuscular Hemoglobin 32.2, Mean Corpuscular Hemoglobin Concent 34.9, Red Cell Distribution Width 13.8, Neutrophils (%) (Auto) 58.0, Lymphocytes (%) (Auto) 26.9, Monocytes (%) (Auto) 6.9 H, Eosinophils (%) (Auto) 4.1 H, Basophils (%) ( Auto) 0.7, Neutrophils # (Auto) 2.3, Lymphocytes # (Auto) 1.1 L, Monocytes # ( Auto) 0.3, Eosinophils # (Auto) 0.2, Basophils # (Auto) 0.0 01/29/17 20:08 Calcium Level 8.4 L 01/30/17 00:59 Calcium Level 8.3 L 01/30/17 05:53 Red Blood Count 3.68 L, Mean Corpuscular Volume 94.9, Mean Corpuscular Hemoglobin 31.6, Mean Corpuscular Hemoglobin Concent 33.3, Red Cell Distribution Width 14.3, Calcium Level 8.2 L Microbiology Microbiology 01/29/17 Blood Culture, Received Pending 01/29/17 Blood Culture, Received Pending 01/29/17 Stool Lactoferrin - Final, Complete 01/29/17 Gastrointestinal Tract Panel (PCR) - Final, Complete GME ATTESTATION GME ATTESTATION My preceptor for this patient encounter was physically present in the building during the encounter and was fully available. As needed, all aspects of the patient interview, examination, medical decision making process, and medical care plan development were reviewed and approved by the preceptor. Preceptor is aware and concurs with the plan as stated in the body of this note and will attest to such by his/her cosignature. DENI TREJO DO Jan 30, 2017 10:56
[2017-01-30] MEDS ORDERED: LOPERAMIDE 2 MG CAP PO PRN (11:30)
--- NOTE | 2017-01-30 12:10 | DS.PDOC ---
Discharge Summary General Date of Admission Jan 29, 2017 at 19:30 Date of Discharge 01-30-17 Discharge Summary PROCEDURES PERFORMED DURING STAY: None ADMITTING DIAGNOSES: 1. Severe diarrhea 2. Pancreatic cancer s/p chemotherapy 3. Dm2 4. HTN 5. Dyslipidemia DISCHARGE DIAGNOSES: 1. Chemotherapy induced diarrhea 2. Lactic Acidosis with hypokalemia 3. Pancreatic cancer s/p chemotherapy 4. DM2 5. HTN 6.Dyslipidemia COMPLICATIONS/CHIEF COMPLAINT: Diarrhea HISTORY OF PRESENT ILLNESS: 62 y/o male with history of pancreatic cancer s/p 12 rounds of chemotherapy with last dose one week ago, presented to ED on 01-29-17 with complaint of loose stool since 01-26-17 after his chemotherapy. HOSPITAL COURSE: During the course of the stay the pt has received IV hydration and potassium replacement as he was found to be hypokalemic with an elevated lactic acid. GI panel was negative. Lactoferrin was positive and suspect this is due to under lying inflammation and not secondary to inflammatory bowel cause. Pt denies ever seeing blood in his stool. He has remained afebrile. His last white count did reveal WBC of 2.9, but he is clinically well appearing. On day of d/c the pt is feeling well despite only a slight improvement in his diarrhea, he is to follow up in one day with [facility] and expresses deep concern in being able to keep this appointment. He usually leaves one day prior to his appointment to make the long car ride to the institution. As his GI panel was negative, as he is afebrile without blood in stool, and as he is no longer orthostatic, we will begin Imodium to help with profuse and frequent stool movements and discharge patient so that he is able to keep his appt at [facility] for his cancer. He has been given detailed instructions about staying hydrated with gatorade/ pedialyte while traveling and seeking immediate care at nearest ED if he has fever, blood in his stool, increased abd pain, dizziness. He and his express good understanding of these instructions. DISCHARGE MEDICATIONS: Please see below. ALLERGIES: Please see below. PHYSICAL EXAMINATION ON DISCHARGE: VITAL SIGNS: Please see below. GENERAL: AAOx3, pleasant, conversant. NAD. HEENT: EOMI, clear conjunctiva b/l, nares patent b/l, NCAT. NECK: supple CARDIOVASCULAR EXAMINATION: RRR, no murmurs, gallops or rubs appreciated. Normal s1 and s2. RESPIRATORY EXAMINATION: CTA b/l, no wheezing, rhonchi or rales appreciated, good air expansion and effort ABDOMINAL EXAMINATION: NABSx4, soft, non-distended, no rebound ridgity or guarding appreciated. EXTREMITIES: no edema, cyanosis or erythema noted. SKIN: intact NEUROLOGICAL EXAMINATION: no focal deficits appreciated PSYCHIATRIC EXAMINATION: normal affect LABORATORY DATA: Please see below. IMAGING: Abdomen X-ray 01-29-17 Impression: Nonspecific bowel gas pattern. Abdomen/Pelvic CT 01-29-17 Impression: 1. No obstructive or inflammatory bowel changes. 2. No evidence of hydronephrosis or nephrolithiasis. 3. Stable left adrenal nodule. 4. Grade 1 anterior spondylolisthesis of L5 upon S1 with moderate degenerative disc disease. PROGNOSIS: Favorable ACTIVITY: As tolerated DIET: BRAT diet DISCHARGE PLAN: Home with f/u with PCP within one week of d/c and Jonathan Knight appointment in one day. Pt advised if his diarrhea increases, he experiences fevers or abdominal discomfort or pain or notes blood in his stool or begins to feel weak to return to nearest ED as soon as possible. He is advised to keep Gatorade or pedialyte in close reach and to consume these during the day for electrolyte replacement, and to continue his Imodium that he will be d/c on. Pt verbalized understanding and had no questions. DISPOSITION: Stable DISCHARGE INSTRUCTIONS: 1. Follow with PCP within one week of d/c 2. Keep appt with Jonathan Knight in one day 3. Follow with oncology within 12 days of d/c ITEMS TO FOLLOWUP ON ON OUTPATIENT: 1. Follow with PCP within one week of d/c 2. Keep appt with Jonathan Knight in one day 3. Follow with oncology within 12 days of d/c DISCHARGE CONDITION: Stable TIME SPENT ON DISCHARGE: Greater than 35 minutes. Vital Signs/I&Os Vital Signs Date Time Temp Pulse Resp B/P (MAP) Pulse Ox O2 Delivery O2 Flow Rate FiO2 01/30/17 09:11 92 148/88 (108) 102 138/70 (92) 82 138/68 (91) 01/30/17 06:00 98.9 16 90 Room Air I&O- Last 24 Hours up to 6 AM 01/30/17 05:59 Intake Total 1760 ml Balance 1760 ml Laboratory Data Labs 24H Laboratory Tests 2 01/29/17 15:07: Prothrombin Time 12.0L, Prothromb Time International Ratio 0.88 01/29/17 15:08: White Blood Count 3.9L, Red Blood Count 4.09L, Hemoglobin 13.2L, Hematocrit 37.8L, Mean Corpuscular Volume 92.5, Mean Corpuscular Hemoglobin 32.2, Mean Corpuscular Hemoglobin Concent 34.9, Red Cell Distribution Width 13.8, Platelet Count 250, Neutrophils (%) (Auto) 58.0, Lymphocytes (%) (Auto) 26.9, Monocytes ( %) (Auto) 6.9H, Eosinophils (%) (Auto) 4.1H, Basophils (%) (Auto) 0.7, Neutrophils # (Auto) 2.3, Lymphocytes # (Auto) 1.1L, Monocytes # (Auto) 0.3, Eosinophils # (Auto) 0.2, Basophils # (Auto) 0.0, Large Unclassified Cells % 3.4 , Large Unclassified Cells # 0.1, Anion Gap 11, Glomerular Filtration Rate > 60.0, Lactic Acid Level 3.1*H, Calcium Level 8.8, Aspartate Amino Transf (AST/ SGOT) 20, Alanine Aminotransferase (ALT/SGPT) 41, Alkaline Phosphatase 105, Total Bilirubin 0.3, Direct Bilirubin < 0.1, C-Reactive Protein, Quantitative 0.59H, Total Protein 7.8, Albumin 3.6, Albumin/Globulin Ratio 0.86L, Lipase 108 01/29/17 19:04: Lactic Acid Followup at 4 Hours 2.2*H 01/29/17 19:35: Erythrocyte Sedimentation Rate 66H 01/29/17 20:08: Anion Gap 9, Glomerular Filtration Rate > 60.0, Blood Urea Nitrogen 14, Creatinine 0.75, Sodium Level 140, Potassium Level 3.8, Chloride Level 101, Carbon Dioxide Level 30, Calcium Level 8.4L 01/29/17 20:20: Bedside Glucose (Misc Panel) 123H 01/30/17 00:59: Anion Gap 7L, Glomerular Filtration Rate > 60.0, Blood Urea Nitrogen 12, Creatinine 0.69L, Sodium Level 137, Potassium Level 3.5, Chloride Level 102, Carbon Dioxide Level 28, Calcium Level 8.3L 01/30/17 05:53: Anion Gap 9, Glomerular Filtration Rate > 60.0, Blood Urea Nitrogen 11, Creatinine 0.65L, Sodium Level 140, Potassium Level 3.5, Chloride Level 105, Carbon Dioxide Level 26, Calcium Level 8.2L, Estimated Mean Plasma Glucose 143H , Hemoglobin A1c 6.6H, Magnesium Level 2.1, Thyroid Stimulating Hormone (TSH) 1.880 CBC/BMP Laboratory Tests 01/29/17 15:08 Red Blood Count 4.09 L, Mean Corpuscular Volume 92.5, Mean Corpuscular Hemoglobin 32.2, Mean Corpuscular Hemoglobin Concent 34.9, Red Cell Distribution Width 13.8, Neutrophils (%) (Auto) 58.0, Lymphocytes (%) (Auto) 26.9, Monocytes (%) (Auto) 6.9 H, Eosinophils (%) (Auto) 4.1 H, Basophils (%) ( Auto) 0.7, Neutrophils # (Auto) 2.3, Lymphocytes # (Auto) 1.1 L, Monocytes # ( Auto) 0.3, Eosinophils # (Auto) 0.2, Basophils # (Auto) 0.0 01/29/17 20:08 Calcium Level 8.4 L 01/30/17 00:59 Calcium Level 8.3 L 01/30/17 05:53 Red Blood Count 3.68 L, Mean Corpuscular Volume 94.9, Mean Corpuscular Hemoglobin 31.6, Mean Corpuscular Hemoglobin Concent 33.3, Red Cell Distribution Width 14.3, Calcium Level 8.2 L FSBS Laboratory Tests Test 01/29/17 20:20 Range/Units Bedside Glucose (Misc Panel) 123 80-115 MG/DL Microbiology Microbiology 01/29/17 Blood Culture, Received Pending 01/29/17 Blood Culture, Received Pending 01/29/17 Stool Lactoferrin - Final, Complete 01/29/17 Gastrointestinal Tract Panel (PCR) - Final, Complete Discharge Medications Scheduled (Irbesartan/Hydrochlorothi 150-12.5 mg) 1 Tab Tab, 1 TAB PO DAILY, (Reported) Aspirin (Aspir-81) 81 Mg Tab, 81 MG PO DAILY, (Reported) Atorvastatin Calcium (Atorvastatin Calcium) 40 Mg Tab, 40 MG PO DAILY, (Reported ) Cholecalciferol (Vitamin D) 1,000 Unit Tab, 1,000 UNIT PO DAILY, (Reported) Metformin Hydrochloride (Metformin HCl) 1,000 Mg Tab, 1,000 MG PO BID, (Reported ) Omeprazole (Omeprazole) 20 Mg Cap, 20 MG PO DAILY, (Reported) Scheduled PRN Loperamide HCl (Loperamide HCl) 2 Mg Cap, 2 MG PO ASDIRECTED PRN for DIARRHEA 1 tab PO after each loose stool; do not exceed more than 8 tabs in a 24 hour time period Lorazepam (Ativan) 0.5 Mg Tab, 0.5 MG PO Q6H PRN for NAUSEA, (Reported) Prochlorperazine Maleate (Prochlorperazine Maleate) 10 Mg Tab, 10 MG PO Q8H PRN for NAUSEA, (Reported) Allergies Coded Allergies: No Known Allergies (Unverified , 01/29/17) GME ATTESTATION GME ATTESTATION My preceptor for this patient encounter was physically present in the building during the encounter and was fully available. As needed, all aspects of the patient interview, examination, medical decision making process, and medical care plan development were reviewed and approved by the preceptor. Preceptor is aware and concurs with the plan as stated in the body of this note and will attest to such by his/her cosignature. DENI TREJO DO Jan 30, 2017 12:10 EVA MALONE Jan 30, 2017 14:37
[2017-01-30] MEDS ORDERED: LOPE2CA PO ×2 (12:45→14:31)
[2017-01-30 14:00] VITALS: BP 119/57
[2017-01-30 14:34] LABS: ANION GAP 10 MEQ/L (8-16); BLOOD UREA NITROGEN 10 MG/DL (7-18); CALCIUM LEVEL 8.2 MG/DL (8.8-10.2); CARBON DIOXIDE LEVEL 27 MEQ/L (21-32); CHLORIDE LEVEL 105 MEQ/L (98-107); CREATININE FOR GFR 0.69 MG/DL (0.70-1.30); GLOMERULAR FILTRATION RATE > 60.0 (>49); GLUCOSE, FASTING 109 MG/DL (80-110); POTASSIUM SERUM 3.3 MEQ/L (3.5-5.1); SODIUM LEVEL 142 MEQ/L (136-145)
[2017-03-19] MEDS ORDERED: PANT40TA2 PO (05:10)
[2017-03-19] MEDS ORDERED: pancrelipase PO (05:12)
[2017-03-19] MEDS ORDERED: GABA-279 PO (05:12)
[2017-03-19] MEDS ORDERED: IMOD2TAB16 PO (10:42)
[2017-03-19] MEDS ORDERED: CREO3600 PO ×2 (10:42)
[2017-03-22] MEDS ORDERED: LEVA750T7 PO (08:39)
== END 2017-01-30 18:26 | disposition home or self-care (01) ==
LOC: M ED 14:19 → M ED INP 19:30 → M MSPAV 20:12
PROVIDERS: ADMIT Internal Medicine; ATTEND Hospitalist
DX: K52.1 Toxic gastroenteritis and colitis (principal); T45.1X5A Adverse effect of antineoplastic and immunosuppressive drugs, initial encounter; E87.2 Acidosis; E87.6 Hypokalemia; C25.9 Malignant neoplasm of pancreas, unspecified; E11.9 Type 2 diabetes mellitus without complications; I10 Essential (primary) hypertension; E78.5 Hyperlipidemia, unspecified; Z92.21 Personal history of antineoplastic chemotherapy; Z87.891 Personal history of nicotine dependence; Z79.899 Other long term (current) drug therapy; Z79.82 Long term (current) use of aspirin; M51.36 Other intervertebral disc degeneration, lumbar region

== ENCOUNTER → 2017-02-08 | Outpatient (CLI) | payer BC ==
[~2017-02-08] MED LIST: ASPI81TA85 PO; ATIV1TAB10 PO; ATOR40TA75 PO; CREO3600 PO; GABA-279 PO; HYDR-3713 PO; IMOD2TAB16 PO; IRBE150T14 PO; LEVA750T7 PO; LOPE2CA PO; METF10004 PO; OMEP20CA3 PO; OMEP40CA2 PO; PANT40TA2 PO; PROC10TA PO; PROC5INJ PO; VITA100066 PO; pancrelipase PO
[2017-02-08 13:50] LABS: ANION GAP 7 MEQ/L (8-16); BLOOD UREA NITROGEN 16 MG/DL (7-18); CALCIUM LEVEL 9.3 MG/DL (8.8-10.2); CARBON DIOXIDE LEVEL 36 MEQ/L (21-32); CHLORIDE LEVEL 95 MEQ/L (98-107); CHOLESTEROL LEVEL 172 MG/DL (<200); CREATININE FOR GFR 0.89 MG/DL (0.70-1.30); GLOMERULAR FILTRATION RATE > 60.0 (>49); GLUCOSE, FASTING 121 MG/DL (80-110); SODIUM LEVEL 138 MEQ/L (136-145); TRIGLYCERIDES LEVEL 156 MG/DL (<150)
== END ==
LOC: M SMT 08:07
PROVIDERS: ATTEND Hospitalist
DX: E11.9 Type 2 diabetes mellitus without complications (principal); C25.9 Malignant neoplasm of pancreas, unspecified

== ENCOUNTER → 2017-02-24 | Outpatient (CLI) | payer BC ==
[2017-02-24 18:41] LABS: ANION GAP 10 MEQ/L (8-16); BLOOD UREA NITROGEN 15 MG/DL (7-18); CALCIUM LEVEL 9.3 MG/DL (8.8-10.2); CARBON DIOXIDE LEVEL 31 MEQ/L (21-32); CHLORIDE LEVEL 99 MEQ/L (98-107); GLOMERULAR FILTRATION RATE > 60.0 (>49); GLUCOSE, FASTING 98 MG/DL (80-110); POTASSIUM SERUM 3.7 MEQ/L (3.5-5.1); SODIUM LEVEL 140 MEQ/L (136-145)
[2017-02-24 19:31] LABS: VITAMIN B12 LEVEL 364 PG/ML (247-911)
== END ==
LOC: M SMT 14:26
PROVIDERS: ATTEND Hospitalist
DX: E87.6 Hypokalemia (principal); G62.9 Polyneuropathy, unspecified

== ENCOUNTER → 2017-05-31 | Outpatient (CLI) | payer BC ==
[2017-05-31 17:39] LABS: BASO % 0.4 % (0.0-1.0); EOS # 0.2 10^3/uL (0.0-0.50); EOS % 2.7 % (0.0-3.0); HEMATOCRIT 39.7 % (42.0-52.0); HEMOGLOBIN 12.7 g/dl (14.0-18.0); IMMATURE GRANULOCYTE % 0.2 % (0-0); LYMPH # 1.4 10^3/uL (1.5-4.5); LYMPH % 25.8 % (24.0-44.0); MEAN CORPUSCULAR HEMOGLOBIN 29.3 pg (27.0-33.0); MEAN CORPUSCULAR VOLUME 91.5 fl (80.0-96.0); MONO # 0.5 10^3/uL (0.0-0.8); MONO % 8.1 % (0.0-5.0); NEUTROPHILS # 3.5 10^3/uL (1.8-7.7); NEUTROPHILS % 62.8 % (36.0-66.0); PLATELET COUNT, AUTOMATED 288 10^3/uL (150-450); RED BLOOD COUNT 4.34 10^6/uL (4.30-6.10); RED CELL DISTRIBUTION WIDTH 13.2 % (11.5-14.5); WHITE BLOOD COUNT 5.6 10^3/uL (4.0-10.0)
[2017-05-31 18:23] LABS: ANION GAP 5 MEQ/L (8-16); BLOOD UREA NITROGEN 7 MG/DL (7-18); CALCIUM LEVEL 8.3 MG/DL (8.8-10.2); CARBON DIOXIDE LEVEL 33 MEQ/L (21-32); CHLORIDE LEVEL 103 MEQ/L (98-107); CREATININE FOR GFR 0.78 MG/DL (0.70-1.30); GLOMERULAR FILTRATION RATE > 60.0 (>49); GLUCOSE, FASTING 217 MG/DL (80-110); POTASSIUM SERUM 4.5 MEQ/L (3.5-5.1); SODIUM LEVEL 141 MEQ/L (136-145)
[2017-05-31 18:57] LABS: ESTIMATED AVERAGE GLUCOSE 143 MG/DL (60-110); HEMOGLOBIN A1c 6.6 %
== END ==
LOC: M SMT 14:50
DX: C25.9 Malignant neoplasm of pancreas, unspecified (principal)
CPT/HCPCS: 83036

== ENCOUNTER 2017-08-27 21:29 | Emergency (ER) | payer BC ==
[2017-08-28] MEDS: NORCO 5/325MG TABLET (BULK FOR ED) PO (00:23)
== END 2017-08-28 00:29 | disposition home or self-care (01) ==
LOC: M ED 08-28 00:29
DX: S22.31XA Fracture of one rib, right side, initial encounter for closed fracture (principal); W00.9XXA Unspecified fall due to ice and snow, initial encounter; Y92.099 Unspecified place in other non-institutional residence as the place of occurrence of the external cause; Y93.9 Activity, unspecified; Y99.9 Unspecified external cause status; G47.30 Sleep apnea, unspecified; Z87.891 Personal history of nicotine dependence; Z79.82 Long term (current) use of aspirin; Z79.899 Other long term (current) drug therapy
CPT/HCPCS: 71101

== ENCOUNTER → 2017-09-05 | Outpatient (CLI) | payer BC ==
[2017-09-05 15:32] LABS: ALBUMIN 3.4 GM/DL (3.2-5.2); ALKALINE PHOSPHATASE 231 U/L (45-117); ALT/SGPT 72 U/L (12-78); ANION GAP 7 MEQ/L (8-16); AST/SGOT 54 U/L (7-37); BILIRUBIN,TOTAL 0.5 MG/DL (0.2-1.0); BLOOD UREA NITROGEN 17 MG/DL (7-18); CALCIUM LEVEL 8.7 MG/DL (8.8-10.2); CARBON DIOXIDE LEVEL 29 MEQ/L (21-32); CHLORIDE LEVEL 107 MEQ/L (98-107); CHOLESTEROL LEVEL 135 MG/DL (<200); CHOLESTEROL RISK RATIO 5.869 (<5); CREATININE FOR GFR 0.73 MG/DL (0.70-1.30); GLOMERULAR FILTRATION RATE > 60.0 (>49); GLUCOSE, FASTING 109 MG/DL (70-100); HDL CHOLESTEROL 23 MG/DL (>40); LDL CHOLESTEROL 91.8 MG/DL (<100); NON-HDL-C 112 MG/DL; POTASSIUM SERUM 4.2 MEQ/L (3.5-5.1); SODIUM LEVEL 143 MEQ/L (136-145); TOTAL PROTEIN 6.5 GM/DL (6.4-8.2); TRIGLYCERIDES LEVEL 101 MG/DL (<150)
[2017-09-05 17:02] LABS: ESTIMATED AVERAGE GLUCOSE 160 MG/DL (60-110); HEMOGLOBIN A1c 7.2 %
[2017-09-07 00:06] LABS: ANTI DOUBLE STRAND-DNA AB <1 IU/mL (0-9); ANTINUCLEAR ANTIBODIES DIRECT Negative (Negative)
== END ==
LOC: M SMT 08:18
DX: L93.0 Discoid lupus erythematosus (principal); R74.0 Nonspecific elevation of levels of transaminase and lactic acid dehydrogenase [LDH]; E11.9 Type 2 diabetes mellitus without complications
CPT/HCPCS: 80053

== ENCOUNTER → 2017-10-11 | Outpatient (REF) | payer BC ==
[2017-10-12 11:04] LABS: ALBUMIN 3.4 GM/DL (3.2-5.2); ALBUMIN/GLOBULIN RATIO 1.17 (1.00-1.93); ALKALINE PHOSPHATASE 226 U/L (45-117); ALT/SGPT 86 U/L (12-78); ANION GAP 5 MEQ/L (8-16); AST/SGOT 82 U/L (7-37); BILIRUBIN,TOTAL 0.4 MG/DL (0.2-1.0); BLOOD UREA NITROGEN 9 MG/DL (7-18); CALCIUM LEVEL 8.2 MG/DL (8.8-10.2); CARBON DIOXIDE LEVEL 32 MEQ/L (21-32); CHLORIDE LEVEL 106 MEQ/L (98-107); CREATININE FOR GFR 0.77 MG/DL (0.70-1.30); GLOMERULAR FILTRATION RATE > 60.0 (>49); GLUCOSE, FASTING 150 MG/DL (70-100); POTASSIUM SERUM 4.7 MEQ/L (3.5-5.1); SODIUM LEVEL 143 MEQ/L (136-145); TOTAL PROTEIN 6.3 GM/DL (6.4-8.2)
[2017-10-12 11:27] LABS: BASO % 0.3 % (0.0-1.0); EOS # 0.1 10^3/uL (0.0-0.50); EOS % 1.8 % (0.0-3.0); HEMATOCRIT 41.1 % (42.0-52.0); HEMOGLOBIN 13.4 g/dl (13.5-17.5); IMMATURE GRANULOCYTE % 0.5 % (0-3.0); LYMPH # 1.5 10^3/uL (1.5-4.5); LYMPH % 19.9 % (24.0-44.0); MEAN CORPUSCULAR HEMOGLOBIN 30.3 pg (27.0-33.0); MEAN CORPUSCULAR HGB CONC 32.6 g/dl (32.0-36.5); MONO # 0.6 10^3/uL (0.0-0.8); MONO % 7.5 % (0.0-5.0); NEUTROPHILS # 5.4 10^3/uL (1.8-7.7); PLATELET COUNT, AUTOMATED 269 10^3/uL (150-450); RED BLOOD COUNT 4.42 10^6/uL (4.30-6.10); RED CELL DISTRIBUTION WIDTH 12.7 % (11.5-14.5); WHITE BLOOD COUNT 7.7 10^3/uL (4.0-10.0)
== END ==
LOC: M LABSMT 09:36
DX: C25.0 Malignant neoplasm of head of pancreas (principal)

== ENCOUNTER → 2017-12-22 | Outpatient (CLI) | payer BC ==
[2017-12-22 12:19] LABS: ESTIMATED AVERAGE GLUCOSE 163 MG/DL (60-110); HEMOGLOBIN A1c 7.3 %
== END ==
LOC: M SMT 09:17
DX: E11.9 Type 2 diabetes mellitus without complications (principal)
CPT/HCPCS: 83036

== ENCOUNTER 2018-01-16 10:10 | Day surgery (SDC) | payer BC ==
[2018-01-16] MEDS ORDERED: NS 1,000 ML IV (10:30)
[2018-01-16] MEDS ORDERED: PROPOFOL 200 MG/20 ML VIAL As Ordered (12:00)
[2018-01-16] MEDS ORDERED: LIDOCAINE 2% INJ 100 MG/5 ML SYRINGE As Ordered ×2 (12:00)
[2018-01-16] MEDS ORDERED: fentaNYL 100 MCG/2 ML INJECTION (J3010) As Ordered (12:01)
== END 2018-01-16 12:58 | disposition home or self-care (01) ==
LOC: M OPP 10:10
DX: Z12.11 Encounter for screening for malignant neoplasm of colon (principal); Z86.010 Personal history of colon polyps; K64.0 First degree hemorrhoids; Z98.0 Intestinal bypass and anastomosis status; R11.2 Nausea with vomiting, unspecified; I48.91 Unspecified atrial fibrillation; I10 Essential (primary) hypertension; E78.00 Pure hypercholesterolemia, unspecified; E11.9 Type 2 diabetes mellitus without complications; G47.30 Sleep apnea, unspecified; M54.9 Dorsalgia, unspecified; Z79.82 Long term (current) use of aspirin; Z79.899 Other long term (current) drug therapy; Z87.19 Personal history of other diseases of the digestive system; Z87.891 Personal history of nicotine dependence; Z86.711 Personal history of pulmonary embolism; Z85.07 Personal history of malignant neoplasm of pancreas; Z92.21 Personal history of antineoplastic chemotherapy
CPT/HCPCS: 45378

== ENCOUNTER → 2018-04-17 | Outpatient (CLI) | payer BC ==
[2018-04-18 14:16] LABS: C-PEPTIDE 1.7 ng/mL (1.1-4.4)
== END ==
LOC: M SMT 08:44
DX: C25.9 Malignant neoplasm of pancreas, unspecified (principal)
CPT/HCPCS: 84681

== ENCOUNTER → 2018-06-05 | Outpatient (CLI) | payer BC ==
[~2018-06-05] MED LIST changes: +GABA-1171 PO; -GABA-279 PO; +NORCOTAB PO; -PANT40TA2 PO; +PANT40TA3 PO; -PROC10TA PO; +PROC10TA4 PO; +XARE10TA PO
[2018-06-05 11:20] LABS: HEMOGLOBIN A1c 7.1 %
[2018-06-05 11:30] LABS: CHOLESTEROL RISK RATIO 4.629 (<5); PROLACTIN 7.5 NG/ML (2.1-17.7); THYROID STIMULATING HORMONE 1.37 uIU/ML (0.358-3.740)
== END ==
LOC: M SMT 08:32
PROVIDERS: ATTEND Hospitalist
DX: E11.9 Type 2 diabetes mellitus without complications (principal); N52.9 Male erectile dysfunction, unspecified

== ENCOUNTER → 2018-11-05 | Outpatient (CLI) | payer BC ==
[~2018-11-05] MED LIST changes: +HYDR-3715 PO; -NORCOTAB PO
[2018-11-05 13:39] LABS: BLOOD UREA NITROGEN 9 MG/DL (7-18); CALCIUM LEVEL 8.6 MG/DL (8.8-10.2); CARBON DIOXIDE LEVEL 27 MEQ/L (21-32); CHLORIDE LEVEL 107 MEQ/L (98-107); GLOMERULAR FILTRATION RATE > 60.0 (>49); GLUCOSE, FASTING 143 MG/DL (70-100); HEMOGLOBIN A1c 6.9 %; POTASSIUM SERUM 4.2 MEQ/L (3.5-5.1); SODIUM LEVEL 140 MEQ/L (136-145)
[2018-11-05 14:08] LABS: APPEARANCE, URINE CLEAR (CLEAR); BACTERIA, URINE AUTO NEGATIVE (NEGATIVE); BILIRUBIN, URINE AUTO NEGATIVE (NEGATIVE); BLOOD, URINE BLOOD NEGATIVE (NEGATIVE); COLOR, URINE YELLOW (YELLOW); GLUCOSE, URINE (UA) AUTO NEGATIVE (NEGATIVE); KETONE, URINE AUTO NEGATIVE (NEGATIVE); LEUKOCYTE ESTERASE, URINE AUTO NEGATIVE (NEGATIVE); MUCUS, URINE SMALL (NEGATIVE); NITRITE, URINE AUTO NEGATIVE (NEGATIVE); PROTEIN, URINE AUTO NEGATIVE (NEGATIVE); RBC, URINE AUTO 0 /HPF (0-3); SPECIFIC GRAVITY URINE AUTO 1.012 (1.002-1.035); SQUAMOUS EPITHELIAL CELL UR AU 0 /HPF (0-6); UROBILINOGEN, URINE AUTO 0.2 mg/dL (0.0-2.0); WBC, URINE AUTO 0 /HPF (0-3)
[2018-11-05 14:13] LABS: CREATININE, URINE 60.7 MG/DL; MALB URINE SIEMENS 5.9 MG/L; MAU/CREAT RATIO 9.7 MCG/MG (0.0-30.0)
== END ==
LOC: M SMT 09:29
PROVIDERS: ATTEND Hospitalist
DX: E11.9 Type 2 diabetes mellitus without complications (principal)

== ENCOUNTER 2018-11-15 16:36 | Emergency (ER) | payer BC ==
[~2018-11-15] VITALS: Ht 177.8 cm; Wt 95.9 kg
[~2018-11-15 16:36] MED LIST changes: -OMEP20CA3 PO; +OMEP20CA4 PO
[2018-11-15 16:37] VITALS: BP 124/69
[2018-11-15] MEDS ORDERED: INVO100T PO (16:45)
[2018-11-15] MEDS ORDERED: VITAD1000T PO (16:45)
[2018-11-15] MEDS ORDERED: ASPI81TA85 PO (16:45)
--- NOTE | 2018-11-15 17:31 | REP ---
Clinical: Trauma. Fall. Technique: AP, lateral, bilateral oblique and sunrise views of the right and left knee. Findings: The right knee demonstrates moderate/early advanced tricompartmental osteoarthritic degenerative changes primarily involving the patella and associated patellofemoral joint space. Findings include subchondral sclerosis, heterogeneity, osteophyte formation and joint space narrowing. A small 2 mm radiodense foreign body is identified in the soft tissues in the region of the patellar tendon. Effusion cannot be excluded. The left knee demonstrates mild degenerative changes including subchondral sclerosis with minimal disc space narrowing. Effusion cannot be excluded. Impression: Asymmetric osteoarthritic degenerative changes (right greater than left). Acute and/or nonacute injury to the right knee cannot be excluded. Electronically Signed by Robles Wood MD 11/15/2018 05:22 P
--- NOTE | 2018-11-15 18:11 | REP ---
Clinical: Trauma. Fall. Technique: AP and lateral views of the left tibia / fibula. Findings: No acute fracture or dislocation. Skeletal structures, joint spaces, and surrounding soft tissues appear normal for age. Impression: No acute fracture or dislocation. Electronically Signed by Robles Wood MD 11/15/2018 06:03 P
== END 2018-11-15 18:27 | disposition home or self-care (01) ==
LOC: M ED 16:36
DX: S80.02XA Contusion of left knee, initial encounter (principal); W10.9XXA Fall (on) (from) unspecified stairs and steps, initial encounter; Y92.099 Unspecified place in other non-institutional residence as the place of occurrence of the external cause; Y93.89 Activity, other specified; Y99.9 Unspecified external cause status; E11.9 Type 2 diabetes mellitus without complications; Z85.07 Personal history of malignant neoplasm of pancreas; Z87.01 Personal history of pneumonia (recurrent); Z87.81 Personal history of (healed) traumatic fracture; Z79.82 Long term (current) use of aspirin; Z79.899 Other long term (current) drug therapy; Z79.84 Long term (current) use of oral hypoglycemic drugs

== ENCOUNTER → 2019-09-11 | Outpatient (CLI) | payer BC ==
[~2019-09-11] MED LIST changes: +CHOL100029 PO; +INVO100T PO; +OMEP1CAP73 PO; -OMEP20CA4 PO; -OMEP40CA2 PO; +OMEP40CA97 PO
[2019-09-11 13:34] LABS: BLOOD UREA NITROGEN 10 MG/DL (7-18); CALCIUM LEVEL 8.7 MG/DL (8.8-10.2); CARBON DIOXIDE LEVEL 31 MEQ/L (21-32); CHLORIDE LEVEL 104 MEQ/L (98-107); CHOLESTEROL LEVEL 136 MG/DL (<200); CHOLESTEROL RISK RATIO 3.675 (<5); CREATININE FOR GFR 0.76 MG/DL (0.70-1.30); GLOMERULAR FILTRATION RATE > 60.0 (>49); GLUCOSE, FASTING 88 MG/DL (70-100); HDL CHOLESTEROL 37 MG/DL (>40); LDL CHOLESTEROL 84 MG/DL (<100); NON-HDL-C 99 MG/DL; SODIUM LEVEL 139 MEQ/L (136-145); TRIGLYCERIDES LEVEL 74 MG/DL (<150)
== END ==
LOC: M LAB 12:19
DX: E11.9 Type 2 diabetes mellitus without complications (principal)

== ENCOUNTER → 2019-09-11 | Outpatient (CLI) | payer BC ==
[2019-09-11 13:21] LABS: INR 1.12; PROTHROMBIN TIME 14.1 SECONDS (11.8-14.0)
[2019-09-11 13:35] LABS: ALBUMIN 3.7 GM/DL (3.2-5.2); ALT/SGPT 55 U/L (12-78); BILIRUBIN,DIRECT 0.2 MG/DL (0.0-0.2); BILIRUBIN,TOTAL 0.7 MG/DL (0.2-1.0); IRON (FE) 64 UG/DL (65-175); PERCENT SATURATION 20.7 % (19.7-50.0); TOTAL IRON BINDING CAPACITY 309 UG/DL (250-450)
[2019-09-11 13:55] LABS: HEPATITIS B SURFACE ANTIGEN NEGATIVE (NEGATIVE)
[2019-09-11 14:22] LABS: HEPATITIS B CORE ANTIBODY IGM NEGATIVE (NEGATIVE); HEPATITIS C VIRUS ABY INDEX 0.1 INDEX (<0.8)
[2019-09-11 14:25] LABS: HEPATITIS A ANTIBODY IGM NEGATIVE (NEGATIVE)
[2019-09-14 00:06] LABS: ANCA-ATYPICAL <1:20 titer (Neg:<1:20); ANTI-MITOCHONDRIAL ANTIBODY <20.0 Units (0.0-20.0); ANTINUCLEAR ANTIBODIES DIRECT Negative (Negative); CYTOPLASMIC NEUTROP AB ANCA-C <1:20 titer (Neg:<1:20); LIVER-KIDNEY MICROSOMAL ABY <20.1 Units (0.0-20.0); PERINUCLEAR AB ANCA-P <1:20 titer (Neg:<1:20)
== END ==
LOC: M LAB 12:17
PROVIDERS: ATTEND Internal Medicine Gastroenterology
DX: R93.3 Abnormal findings on diagnostic imaging of other parts of digestive tract (principal)

== ENCOUNTER → 2019-09-24 | Outpatient (CLI) | payer BC ==
[2019-09-24 11:44] LABS: BASO % 0.6 % (0.0-1.0); EOS # 0.2 10^3/uL (0.0-0.5); EOS % 2.9 % (0.0-3.0); HEMATOCRIT 44.1 % (42.0-52.0); LYMPH # 1.4 10^3/uL (1.5-5.0); LYMPH % 20.6 % (24.0-44.0); MEAN CORPUSCULAR HEMOGLOBIN 32.5 pg (27.0-33.0); MEAN CORPUSCULAR VOLUME 95.7 fl (80.0-96.0); MONO # 0.5 10^3/uL (0.0-0.8); MONO % 7.1 % (0.0-5.0); NEUTROPHILS # 4.7 10^3/uL (1.5-8.5); NEUTROPHILS % 68.7 % (36.0-66.0); PLATELET COUNT, AUTOMATED 191 10^3/uL (150-450); RED BLOOD COUNT 4.61 10^6/uL (4.30-6.10); WHITE BLOOD COUNT 6.8 10^3/uL (4.0-10.0)
[2019-09-24 12:25] LABS: ALBUMIN 3.9 GM/DL (3.2-5.2); ALT/SGPT 56 U/L (12-78); BILIRUBIN,TOTAL 0.6 MG/DL (0.2-1.0); BLOOD UREA NITROGEN 12 MG/DL (7-18); CALCIUM LEVEL 9.2 MG/DL (8.8-10.2); CARBON DIOXIDE LEVEL 31 MEQ/L (21-32); CHLORIDE LEVEL 106 MEQ/L (98-107); CREATININE FOR GFR 0.85 MG/DL (0.70-1.30); GLOMERULAR FILTRATION RATE > 60.0 (>49); GLUCOSE, FASTING 83 MG/DL (70-100); POTASSIUM SERUM 4.4 MEQ/L (3.5-5.1); SODIUM LEVEL 140 MEQ/L (136-145); TOTAL PROTEIN 6.9 GM/DL (6.4-8.2)
[2019-09-24 12:46] LABS: CA19-9 TUMOR MARKER,CARBOHYDRA 17.8 U/ML (<35.0)
== END ==
LOC: M LAB 11:12
PROVIDERS: ATTEND Internal Medicine Hematology & Oncology
DX: C25.0 Malignant neoplasm of head of pancreas (principal)

== ENCOUNTER → 2020-04-06 | Outpatient (CLI) | payer BC ==
[~2020-04-06] MED LIST changes: -ASPI81TA85 PO; +ASPI81TA86 PO; +PANT40TA29 PO; -PANT40TA3 PO
[2020-04-06 14:50] LABS: HEMOGLOBIN A1c 5.3 %
[2020-04-06 15:22] LABS: ALT/SGPT 45 U/L (12-78); BILIRUBIN,TOTAL 0.9 MG/DL (0.2-1.0); BLOOD UREA NITROGEN 7 MG/DL (7-18); CALCIUM LEVEL 8.4 MG/DL (8.8-10.2); CARBON DIOXIDE LEVEL 29 MEQ/L (21-32); CHLORIDE LEVEL 108 MEQ/L (98-107); CREATININE FOR GFR 0.79 MG/DL (0.70-1.30); GLOMERULAR FILTRATION RATE > 60.0 (>49); GLUCOSE, FASTING 108 MG/DL (70-100); POTASSIUM SERUM 4.4 MEQ/L (3.5-5.1); SODIUM LEVEL 144 MEQ/L (136-145)
[2020-04-06 15:23] LABS: CREATININE, URINE 77.6 MG/DL; MALB URINE SIEMENS < 5.0 MG/L; MAU/CREAT RATIO 6.4 MCG/MG (0.0-30.0)
== END ==
LOC: M LAB 13:21
PROVIDERS: ATTEND Student in an Organized Health Care Education/Training Program
DX: E11.9 Type 2 diabetes mellitus without complications (principal)

== ENCOUNTER → 2020-07-27 | Outpatient (CLI) | payer BC ==
[2020-07-27 12:02] LABS: BASO % 0.3 % (0.0-1.0); EOS # 0.1 10^3/uL (0.0-0.5); EOS % 1.4 % (0.0-3.0); HEMATOCRIT 42.1 % (42.0-52.0); HEMOGLOBIN 13.4 g/dl (13.5-17.5); LYMPH # 1.3 10^3/uL (1.5-5.0); LYMPH % 20.1 % (24.0-44.0); MEAN CORPUSCULAR HEMOGLOBIN 32.2 pg (27.0-33.0); MEAN CORPUSCULAR HGB CONC 31.8 g/dl (32.0-36.5); MEAN CORPUSCULAR VOLUME 101.2 fl (80.0-96.0); MONO # 0.5 10^3/uL (0.0-0.8); MONO % 8.5 % (2.0-8.0); NEUTROPHILS # 4.4 10^3/uL (1.5-8.5); NEUTROPHILS % 69.4 % (36.0-66.0); PLATELET COUNT, AUTOMATED 136 10^3/uL (150-450); RED BLOOD COUNT 4.16 10^6/uL (4.30-6.10); WHITE BLOOD COUNT 6.3 10^3/uL (4.0-10.0)
[2020-07-27 12:13] LABS: INR 1.23; PROTHROMBIN TIME 15.8 SECONDS (12.5-14.3)
[2020-07-27 12:25] LABS: ALBUMIN 2.7 GM/DL (3.2-5.2); ALT/SGPT 34 U/L (12-78); BILIRUBIN,TOTAL 1.5 MG/DL (0.2-1.0); BLOOD UREA NITROGEN 7 MG/DL (7-18); CALCIUM LEVEL 8.2 MG/DL (8.8-10.2); CARBON DIOXIDE LEVEL 32 MEQ/L (21-32); CHLORIDE LEVEL 107 MEQ/L (98-107); CREATININE FOR GFR 0.92 MG/DL (0.70-1.30); GLOMERULAR FILTRATION RATE > 60.0 (>49); GLUCOSE, FASTING 123 MG/DL (70-100); POTASSIUM SERUM 3.8 MEQ/L (3.5-5.1); SODIUM LEVEL 143 MEQ/L (136-145); TOTAL PROTEIN 5.6 GM/DL (6.4-8.2)
[2020-07-27 13:03] LABS: CA19-9 TUMOR MARKER,CARBOHYDRA 17.9 U/ML (<35.0)
== END ==
LOC: M LAB 11:34
PROVIDERS: ATTEND Internal Medicine Gastroenterology
DX: R18.8 Other ascites (principal); K75.81 Nonalcoholic steatohepatitis (NASH); C25.9 Malignant neoplasm of pancreas, unspecified

== ENCOUNTER → 2020-07-29 | Outpatient (CLI) | payer BC ==
[~2020-07-29] MED LIST changes: +ATOR80TA59 PO; +LASI20TA3 PO; +LIDOCAINE 1% MDV 20ML VIAL As Ordered ONE; +SILD50TA PO; +SODIUM BICARBONATE 8.4% INJ 50MEQ 50 ML VIAL As Ordered ONE; +SPIR50TA4 PO
[2020-07-29 11:13] LABS: APPEARANCE, BODY FLUID CLEAR (CLEAR); ASCITES FL COLOR PALE YELLOW (COLORLESS); SOURCE, BODY FLUID ASCITES
[2020-07-29 11:33] LABS: SOURCE, BODY FLUID ALBUMIN ASCITES; SOURCE, BODY FLUID LIPASE ASCITES; SOURCE, BODY FLUID TOT PROTEIN ASCITES; SOURCE, BODY FLUID TRIG ASCITES; TOTAL PROTEIN, BODY FLUID 0.8 G/DL (NOT ESTABLISHED); TRIGLYCERIDE, BODY FLUID 40 MG/DL (NOT ESTABLISHED)
[2020-07-29 11:35] VITALS: BP 129/71
--- NOTE | 2020-07-29 14:29 | REP ---
INDICATION: OTHER ASCITES The patient has a history of ascites COMPARISON: None. TECHNIQUE: The procedure was performed by Dr. Gómez under the personal supervision of Abeba Alcocer [facility], and under the direct supervision of Dr. Childress The risks and benefits of the procedure were explained to the patient and an informed consent was obtained both verbally and written. Directly prior to the start of the procedure a formal time-out was completed in the procedure room. The largest pocket of fluid was localized in the right flank using ultrasound guidance. The skin was prepped and draped in a sterile fashion. Ten ML of 1% lidocaine 10 mg/ml was used as a local anesthetic. An 8-Nepali multi side-hole catheter was inserted using trocar technique. FINDINGS: 5000 mL of yellow ascites was removed in total, 1300 was sent to the laboratory for further analysis, and the rest was discarded. The patient tolerated the procedure well and there were no immediate complications. After the appropriate amount of monitored convalescence, the patient was discharged from the department. IMPRESSION: Ultrasound-guided paracentesis with removal of 5000 mL of yellow ascites. <Electronically signed by Abeba Alcocer > 07/29/20 1152 <Electronically signed by Darvin Childress > 07/29/20 4179
== END ==
LOC: M IRPRO 09:30
PROVIDERS: ATTEND Internal Medicine Gastroenterology
DX: R18.8 Other ascites (principal)

== ENCOUNTER → 2020-08-16 | Outpatient (CLI) | payer BC ==
[~2020-08-16] MED LIST changes: -LIDOCAINE 1% MDV 20ML VIAL As Ordered ONE; -SODIUM BICARBONATE 8.4% INJ 50MEQ 50 ML VIAL As Ordered ONE
[2020-08-16 09:14] LABS: BASO % 0.5 % (0.0-1.0); EOS # 0.1 10^3/uL (0.0-0.5); EOS % 2.1 % (0.0-3.0); HEMATOCRIT 41.9 % (42.0-52.0); HEMOGLOBIN 13.5 g/dl (13.5-17.5); LYMPH # 1.4 10^3/uL (1.5-5.0); LYMPH % 23.2 % (24.0-44.0); MEAN CORPUSCULAR HEMOGLOBIN 32.7 pg (27.0-33.0); MEAN CORPUSCULAR HGB CONC 32.2 g/dl (32.0-36.5); MEAN CORPUSCULAR VOLUME 101.5 fl (80.0-96.0); MONO # 0.6 10^3/uL (0.0-0.8); MONO % 9.3 % (2.0-8.0); NEUTROPHILS % 64.6 % (36.0-66.0); PLATELET COUNT, AUTOMATED 167 10^3/uL (150-450); RED BLOOD COUNT 4.13 10^6/uL (4.30-6.10); WHITE BLOOD COUNT 6.2 10^3/uL (4.0-10.0)
[2020-08-16 09:23] LABS: INR 1.32; PROTHROMBIN TIME 16.7 SECONDS (12.5-14.3)
[2020-08-16 09:36] LABS: BLOOD UREA NITROGEN 8 MG/DL (7-18); CREATININE FOR GFR 1.03 MG/DL (0.70-1.30); GLOMERULAR FILTRATION RATE > 60.0 (>49)
== END ==
LOC: M LAB 08:45
PROVIDERS: ATTEND Internal Medicine Gastroenterology
DX: R18.8 Other ascites (principal)

== ENCOUNTER → 2020-08-18 | Outpatient (CLI) | payer BC ==
[2020-08-18 11:20] VITALS: BP 120/72
--- NOTE | 2020-08-18 18:43 | REP ---
INDICATION: OTHER ASCITES. COMPARISON: None. TECHNIQUE: The procedure was performed under the direct supervision of Dr. Kern. The risks and benefits of the procedure were explained to the patient and informed consent was obtained. The largest pocket of fluid was localized in the left flank using ultrasound guidance. The skin was prepped and draped in a sterile fashion. 1% lidocaine was used as a local anesthetic. An 8-Luxembourgish multi side-hole catheter was inserted using trocar technique.6200 cc of clear yellow fluid was withdrawn and discarded. The patient tolerated the procedure well and there were no immediate complications. After the appropriate amount of monitored convalescence, the patient was discharged from the department. FINDINGS: None IMPRESSION: Ultrasound-guided paracentesis [id number] cc of clear yellow fluid. <Electronically signed by David Peter > 08/18/20 1523 <Electronically signed by Eleno Kern > 08/18/20 [id number]
== END ==
LOC: M IRPRO 09:34
PROVIDERS: ATTEND Internal Medicine Gastroenterology
DX: R18.8 Other ascites (principal); K76.6 Portal hypertension

== ENCOUNTER → 2020-09-04 | Outpatient (CLI) | payer BC ==
[2020-09-04 12:51] LABS: HEMOGLOBIN A1c 4.8 %
[2020-09-04 12:59] LABS: ALBUMIN 2.9 GM/DL (3.2-5.2); ALT/SGPT 36 U/L (12-78); BILIRUBIN,TOTAL 1.6 MG/DL (0.2-1.0); BLOOD UREA NITROGEN 18 MG/DL (7-18); CALCIUM LEVEL 8.7 MG/DL (8.8-10.2); CARBON DIOXIDE LEVEL 28 MEQ/L (21-32); CHLORIDE LEVEL 100 MEQ/L (98-107); CREATININE FOR GFR 1.02 MG/DL (0.70-1.30); GLOMERULAR FILTRATION RATE > 60.0 (>49); GLUCOSE, FASTING 154 MG/DL (70-100); SODIUM LEVEL 135 MEQ/L (136-145); TOTAL PROTEIN 6.3 GM/DL (6.4-8.2)
== END ==
LOC: M LAB 11:23
PROVIDERS: ATTEND Student in an Organized Health Care Education/Training Program
DX: C25.0 Malignant neoplasm of head of pancreas (principal); E11.9 Type 2 diabetes mellitus without complications

== ENCOUNTER → 2020-09-18 | Outpatient (CLI) | payer BC ==
[2020-09-18 13:38] LABS: BASO % 0.5 % (0.0-1.0); EOS # 0.2 10^3/uL (0.0-0.5); EOS % 1.8 % (0.0-3.0); HEMATOCRIT 39.8 % (42.0-52.0); HEMOGLOBIN 13.2 g/dl (13.5-17.5); LYMPH # 1.5 10^3/uL (1.5-5.0); LYMPH % 17.5 % (24.0-44.0); MEAN CORPUSCULAR HEMOGLOBIN 32.7 pg (27.0-33.0); MEAN CORPUSCULAR HGB CONC 33.2 g/dl (32.0-36.5); MEAN CORPUSCULAR VOLUME 98.5 fl (80.0-96.0); MONO # 0.7 10^3/uL (0.0-0.8); MONO % 8.8 % (2.0-8.0); NEUTROPHILS # 5.9 10^3/uL (1.5-8.5); NEUTROPHILS % 71.2 % (36.0-66.0); PLATELET COUNT, AUTOMATED 227 10^3/uL (150-450); RED BLOOD COUNT 4.04 10^6/uL (4.30-6.10); WHITE BLOOD COUNT 8.3 10^3/uL (4.0-10.0)
[2020-09-18 13:48] LABS: INR 1.16; PROTHROMBIN TIME 15.1 SECONDS (12.5-14.3)
[2020-09-18 14:29] LABS: ALBUMIN 2.8 GM/DL (3.2-5.2); ALT/SGPT 40 U/L (12-78); BILIRUBIN,TOTAL 1.4 MG/DL (0.2-1.0); BLOOD UREA NITROGEN 10 MG/DL (7-18); CARBON DIOXIDE LEVEL 29 MEQ/L (21-32); CHLORIDE LEVEL 101 MEQ/L (98-107); GLOMERULAR FILTRATION RATE > 60.0 (>49); GLUCOSE, FASTING 95 MG/DL (70-100); SODIUM LEVEL 136 MEQ/L (136-145); TOTAL PROTEIN 5.8 GM/DL (6.4-8.2)
== END ==
LOC: M LAB 13:02
PROVIDERS: ATTEND Internal Medicine Gastroenterology
DX: K74.60 Unspecified cirrhosis of liver (principal)

== ENCOUNTER → 2020-10-07 | Outpatient (CLI) | payer BC ==
[~2020-10-07] MED LIST changes: +SODIUM BICARBONATE 8.4% INJ 50MEQ 50 ML VIAL As Ordered ONE
[2020-10-07 12:44] VITALS: BP 138/75
[2020-10-07 13:54] LABS: SOURCE, BODY FLUID ASCITES
[2020-10-07 13:55] LABS: APPEARANCE, BODY FLUID HAZY (CLEAR); ASCITES FL COLOR YELLOW (COLORLESS)
[2020-10-07 14:14] LABS: SOURCE, BODY FLUID ALBUMIN ASCITES; SOURCE, BODY FLUID TOT PROTEIN ASCITES; TOTAL PROTEIN, BODY FLUID 0.8 G/DL (NOT ESTABLISHED)
--- NOTE | 2020-10-07 15:19 | REP ---
INDICATION: ASCITES CIRRHOSIS LIVER The patient has a history of COMPARISON: None. TECHNIQUE: The procedure was performed by THANH Meadows, under the direct supervision of Dr. Childress The risks and benefits of the procedure were explained to the patient and an informed consent was obtained both verbally and written. Directly prior to the start of the procedure a formal time-out was completed in the procedure room. The largest pocket of fluid was localized in the right flank using ultrasound guidance. The skin was prepped and draped in a sterile fashion. Eleven ML of buffered lidocaine was used as a local anesthetic. An 8-Sri Lankan multi side-hole catheter was inserted using trocar technique. FINDINGS: 2900 mL of yellow colored ascites was removed, 1300 was sent to the laboratory for further analysis, and the rest was discarded. The patient tolerated the procedure well and there were no immediate complications. After the appropriate amount of monitored convalescence, the patient was discharged from the department. IMPRESSION: Ultrasound-guided paracentesis with removal of 2900 mL of yellow ascites. <Electronically signed by Abeba Alcocer > 10/07/20 1434 <Electronically signed by Darvin Childress > 10/07/20 1514
== END ==
LOC: M IRPRO 11:47
PROVIDERS: ATTEND Internal Medicine Gastroenterology
DX: R18.8 Other ascites (principal); K74.69 Other cirrhosis of liver

== ENCOUNTER → 2020-10-20 | Outpatient (CLI) | payer BC ==
[~2020-10-20] MED LIST changes: -SODIUM BICARBONATE 8.4% INJ 50MEQ 50 ML VIAL As Ordered ONE
== END ==
LOC: M LAB 07:58
PROVIDERS: ATTEND Internal Medicine Gastroenterology
DX: K74.60 Unspecified cirrhosis of liver (principal)

== ENCOUNTER → 2020-10-20 | Outpatient (CLI) | payer BC ==
[2020-10-20 09:12] LABS: BASO % 0.4 % (0.0-1.0); EOS # 0.1 10^3/uL (0.0-0.5); EOS % 1.2 % (0.0-3.0); HEMOGLOBIN 13.2 g/dl (13.5-17.5); LYMPH # 1.4 10^3/uL (1.5-5.0); LYMPH % 17.3 % (24.0-44.0); MEAN CORPUSCULAR HEMOGLOBIN 33.4 pg (27.0-33.0); MEAN CORPUSCULAR HGB CONC 33.8 g/dl (32.0-36.5); MEAN CORPUSCULAR VOLUME 98.7 fl (80.0-96.0); MONO # 0.5 10^3/uL (0.0-0.8); MONO % 6.4 % (2.0-8.0); NEUTROPHILS # 5.8 10^3/uL (1.5-8.5); NEUTROPHILS % 74.3 % (36.0-66.0); PLATELET COUNT, AUTOMATED 179 10^3/uL (150-450); RED BLOOD COUNT 3.95 10^6/uL (4.30-6.10); WHITE BLOOD COUNT 7.8 10^3/uL (4.0-10.0)
[2020-10-20 09:32] LABS: INR 1.22; PROTHROMBIN TIME 15.7 SECONDS (12.5-14.3)
[2020-10-20 10:39] LABS: HEMOGLOBIN A1c 5.2 %
[2020-10-20 11:27] LABS: ALBUMIN 2.5 GM/DL (3.2-5.2); ALT/SGPT 37 U/L (12-78); BILIRUBIN,TOTAL 1.7 MG/DL (0.2-1.0); BLOOD UREA NITROGEN 16 MG/DL (7-18); CALCIUM LEVEL 8.1 MG/DL (8.8-10.2); CARBON DIOXIDE LEVEL 27 MEQ/L (21-32); CHLORIDE LEVEL 104 MEQ/L (98-107); CREATININE FOR GFR 1.11 MG/DL (0.70-1.30); GLOMERULAR FILTRATION RATE > 60.0 (>49); GLUCOSE, FASTING 100 MG/DL (70-100); SODIUM LEVEL 139 MEQ/L (136-145); TOTAL PROTEIN 5.6 GM/DL (6.4-8.2)
== END ==
LOC: M LAB 07:56
PROVIDERS: ATTEND Student in an Organized Health Care Education/Training Program
DX: C25.0 Malignant neoplasm of head of pancreas (principal); K74.60 Unspecified cirrhosis of liver; E11.9 Type 2 diabetes mellitus without complications

== ENCOUNTER → 2020-10-21 | Outpatient (CLI) | payer BC ==
[~2020-10-21] MED LIST changes: +SODIUM BICARBONATE 8.4% INJ 50MEQ 50 ML VIAL As Ordered ONE
[2020-10-21 11:15] VITALS: BP 128/74
--- NOTE | 2020-10-21 17:46 | REP ---
INDICATION: ASCITES The patient has a history of ascites COMPARISON: None. TECHNIQUE: The procedure was performed by THANH Meadows, under the direct supervision of Dr. Kern The risks and benefits of the procedure were explained to the patient and an informed consent was obtained both verbally and written. Directly prior to the start of the procedure a formal time-out was completed in the procedure room. The largest pocket of fluid was localized in the right flank using ultrasound guidance. The skin was prepped and draped in a sterile fashion. Fifteen ML of buffered lidocaine was used as a local anesthetic. An 8-Sinhala multi side-hole catheter was inserted using trocar technique. FINDINGS: 6000 mL of yellow ascites was removed and discarded. The patient tolerated the procedure well and there were no immediate complications. After the appropriate amount of monitored convalescence, the patient was discharged from the department. IMPRESSION: Ultrasound-guided paracentesis with removal of 6000 mL of yellow ascites. <Electronically signed by bAeba Alcocer > 10/21/20 1245 <Electronically signed by Eleno Kern > 10/21/20 1339
== END ==
LOC: M IRPRO 10:18
PROVIDERS: ATTEND Nurse Practitioner Acute Care
DX: R18.8 Other ascites (principal); K74.69 Other cirrhosis of liver; K75.81 Nonalcoholic steatohepatitis (NASH)

== ENCOUNTER → 2020-10-22 | Outpatient (CLI) | payer BC ==
[~2020-10-22] MED LIST changes: -SODIUM BICARBONATE 8.4% INJ 50MEQ 50 ML VIAL As Ordered ONE
--- NOTE | 2020-10-22 08:47 | REP ---
INDICATION: CIRRHOSIS, ASCITES COMPARISON: None TECHNIQUE: Real time B-mode tracy scale ultrasound examination using curved array transducer. FINDINGS: Liver demonstrates increased heterogeneous echotexture with nodular contour and poor through transmission. There are somewhat vague hypodense areas measuring roughly 7 x 7 x 4.0 x 7.1 cm along the right lateral border, 2.2 x 1.9 x 2.9 cm along the right medial border, and 3.6 x 4.1 x 3.4 cm adjacent to the jake hepatis. These findings are nonspecific by ultrasound. Pancreas is incompletely evaluated due to interposed bowel gas. Patient is status post cholecystectomy. Common bile duct is upper limits of normal at 7.3 mm diameter. The bilateral kidneys are normal in reniform shape without hydronephrosis. Right kidney measures 10.3 x 5.4 x 5.4 cm. Left kidney measures 10.0 x 5.1 x 4.7 cm. Moderate amount of ascites is appreciated. Color Doppler evaluation demonstrates normal wave patterns, velocities, and flow direction through the splenic vein, portal vein, and intrahepatic portal veins. Splenic vein: 30 cm/sec Main portal vein: 30 cm/sec Right portal vein: 21 cm/sec Left portal vein: 28 cm/sec IMPRESSION: 1. Abnormal findings the liver consistent with cirrhosis. Underlying focal areas of fatty sparing versus mass lesion cannot be completely evaluated based on ultrasound. Consider pre and postcontrast CT or MRI for further investigation. 2. Moderate ascites. <Electronically signed by Robles Wood > 10/22/20 0816
== END ==
LOC: M RAD 06:39
PROVIDERS: ATTEND Internal Medicine Gastroenterology
DX: K74.69 Other cirrhosis of liver (principal); R18.8 Other ascites

== ENCOUNTER → 2020-11-18 | Outpatient (CLI) | payer BC ==
[~2020-11-18] MED LIST changes: +OMEP40CA4 PO; -OMEP40CA97 PO
[2020-11-18 13:52] VITALS: BP 111/67
--- NOTE | 2020-11-18 16:30 | REP ---
INDICATION: ASCITES. COMPARISON: None. TECHNIQUE: The procedure was performed under the direct supervision of Dr. Kern. The risks and benefits of the procedure were explained to the patient and informed consent was obtained. The largest pocket of fluid was localized in the right lower quadrant using ultrasound guidance. The skin was prepped and draped in a sterile fashion. 1% lidocaine was used as a local anesthetic. An 8-Georgian multi side-hole catheter was inserted using trocar technique.8150 cc of yellow fluid was withdrawn and discarded. Estimated blood loss: Less than 1 cc. The patient tolerated the procedure well and there were no immediate complications. After the appropriate amount of monitored convalescence, the patient was discharged from the department. FINDINGS: None IMPRESSION: Ultrasound-guided paracentesis [id number] cc of yellow fluid. <Electronically signed by David Peter > 11/18/20 1547 <Electronically signed by Eleno Kern > 11/18/20 7024
== END ==
LOC: M IRPRO 13:01
PROVIDERS: ATTEND Internal Medicine Gastroenterology
DX: R18.8 Other ascites (principal); K75.81 Nonalcoholic steatohepatitis (NASH)

== ENCOUNTER 2020-11-24 07:18 | Inpatient (IN) | payer BC ==
[~2020-11-24] VITALS: Ht 177.8 cm; Wt 72.9 kg
[2020-11-24] MEDS ORDERED: D31000TA2 PO (07:32)
[2020-11-24] MEDS ORDERED: CONS10SO3 PO (07:32)
[2020-11-24] MEDS ORDERED: ONDANSETRON 4MG/2ML VIAL IV ONE (08:00)
[2020-11-24] MEDS ORDERED: NS 500 ML IV ONE ×2 (08:00→08:45)
--- NOTE | 2020-11-24 08:11 | REP ---
INDICATION: syncope COMPARISON: 03/19/2017 TECHNIQUE: PA and lateral. FINDINGS: The mediastinum and cardiac silhouette are normal. The lung lin are clear and without acute consolidation, effusion, or pneumothorax. The skeletal structures are intact and normal. IMPRESSION: No acute cardiopulmonary process. <Electronically signed by Robles Wood > 11/24/20 0862
[2020-11-24 08:13] LABS: BASO % 0.1 % (0.0-1.0); EOS % 0.2 % (0.0-3.0); HEMATOCRIT 36.7 % (42.0-52.0); HEMOGLOBIN 12.4 g/dl (13.5-17.5); LYMPH # 0.9 10^3/uL (1.5-5.0); MEAN CORPUSCULAR HEMOGLOBIN 33.1 pg (27.0-33.0); MEAN CORPUSCULAR HGB CONC 33.8 g/dl (32.0-36.5); MEAN CORPUSCULAR VOLUME 97.9 fl (80.0-96.0); MONO # 0.8 10^3/uL (0.0-0.8); MONO % 6.7 % (2.0-8.0); NEUTROPHILS # 10.6 10^3/uL (1.5-8.5); NEUTROPHILS % 85.4 % (36.0-66.0); PLATELET COUNT, AUTOMATED 197 10^3/uL (150-450); RED BLOOD COUNT 3.75 10^6/uL (4.30-6.10); WHITE BLOOD COUNT 12.4 10^3/uL (4.0-10.0)
--- NOTE | 2020-11-24 08:32 | REP ---
INDICATION: trauma COMPARISON: None. TECHNIQUE: Axial noncontrast images from the skull base to the thoracic inlet with coronal reformations. This CT examination was performed using the following dose reduction techniques: Automated exposure control, adjustment of mA and/or kv according to the patient's size, and use of iterative reconstruction technique. FINDINGS: Atrophy with periventricular leukomalacia and microvascular ischemic changes are appreciated. The ventricles and sulci are symmetric. Kern-white differentiation is maintained. There is no evidence for acute intracranial hemorrhage, mass/mass effect, pathology or infarction. No extra-axial fluid collection. Calvarium is intact. Paranasal sinuses and mastoid air cells are clear. IMPRESSION: Atrophy and microvascular ischemic changes. No acute intracranial hemorrhage, infarction, or mass/mass effect. <Electronically signed by Robles Wood > 11/24/20 [id number]
--- NOTE | 2020-11-24 08:34 | REP ---
INDICATION: trauma COMPARISON: None. TECHNIQUE: Axial noncontrast images from the skull base to the thoracic inlet with coronal and sagittal re-formations This CT examination was performed using the following dose reduction techniques: Automated exposure control, adjustment of mA and/or kv according to the patient's size, and use of iterative reconstruction technique. FINDINGS: Relatively moderate multilevel degenerative changes include osteophytes, endplate sclerosis, disc space narrowing. Normal alignment and lordosis is maintained. Cervical vertebral bodies including transverse processes and spinous processes are intact and there is no evidence for acute fracture / compression injury or subluxation. Spinal canal is patent. Posterior elements are intact. Paravertebral soft tissues are normal. IMPRESSION: Moderate multilevel degenerative changes. No evidence for acute pathology or trauma/injury. <Electronically signed by Robles Wood > 11/24/20 7738
[2020-11-24 08:40] LABS: ALBUMIN 2.3 GM/DL (3.2-5.2); ALT/SGPT 34 U/L (12-78); BILIRUBIN,DIRECT 0.9 MG/DL (0.0-0.2); BLOOD UREA NITROGEN 21 MG/DL (7-18); CALCIUM LEVEL 8.2 MG/DL (8.8-10.2); CARBON DIOXIDE LEVEL 23 MEQ/L (21-32); CHLORIDE LEVEL 99 MEQ/L (98-107); CK-MB VALUE MASS < 1.0 NG/ML (<3.6); CPK CREATINE PHOSPHOKINASE 62 U/L (39-308); CREATININE FOR GFR 1.49 MG/DL (0.70-1.30); FREE T4 1.74 NG/DL (0.76-1.46); GLOMERULAR FILTRATION RATE 50.7 (>49); GLUCOSE, FASTING 149 MG/DL (70-100); LIPASE < 10 U/L (73-393); MB/CK RELATIVE INDEX 1.61 (< OR =4); POTASSIUM SERUM 5.3 MEQ/L (3.5-5.1); SODIUM LEVEL 133 MEQ/L (136-145); TOTAL PROTEIN 5.4 GM/DL (6.4-8.2); TROPONIN I < 0.02 NG/ML (< 0.10)
[2020-11-24] MEDS ORDERED: ISOVUE-370 76% 100ML VIAL As Ordered ONE (08:50)
[2020-11-24] MEDS: DOCUSATE SODIUM 100MG CAPSULE PO SCH ×2 (09:00→21:00)
--- NOTE | 2020-11-24 09:50 | REP ---
INDICATION: LLQ pain vomiting. COMPARISON: 03/19/2017 TECHNIQUE: Axial contrast-enhanced images from the lung bases to the pubic symphysis using 100 cc Isovue 370 intravenous contrast material. Coronal and sagittal reformations obtained. This CT examination was performed using the following dose reduction techniques: Automated exposure control, adjustment of mA and/or kv according to the patient's size, and the use of iterative reconstruction technique. FINDINGS: Significant ascites noted throughout the abdomen and pelvis. The liver has a somewhat nodular and coarsened heterogeneous echotexture and findings may be related to cirrhosis although further underlying pathology cannot be excluded. The patient is noted to be status post presumed Whipple's procedure. No obvious residual pancreatic tissue is identified. Enteric anastomoses appear intact and the residual small and large bowel appears grossly normal and without obstruction. No free air is identified to suggest perforation. Spleen, right adrenal gland, and kidneys are normal. Left adrenal gland nodule measures 2.3 cm and appears stable compared to 2017.. There is no evidence for bowel obstruction. Pelvis demonstrates normal bladder and age-appropriate prostate/seminal vesicles. Small fat containing inguinal hernias noted. No obvious retroperitoneal adenopathy. Skeletal structures demonstrate degenerative changes without focal acute osseous abnormality. IMPRESSION: 1. Significant ascites noted throughout the abdomen and pelvis of uncertain etiology. Differential diagnosis includes cirrhosis as well as possible malignancy given the findings to suggest prior Whipple surgery and presumed pancreatic previous neoplasm. No obvious adenopathy or focal mass lesion identified. <Electronically signed by Robles Wood > 11/24/20 0946
[2020-11-24] MEDS ORDERED: MAALOX 30 ML SUSP *UDC PO PRN (12:10)
[2020-11-24] MEDS ORDERED: MOM 30ML SUSPENSION UDC PO PRN (12:10)
[2020-11-24] MEDS ORDERED: LACT20EL PO (12:16)
[2020-11-24] MEDS ORDERED: SPIR100T3 PO (12:16)
[2020-11-24] MEDS ORDERED: ACET500T15 PO (12:16)
[2020-11-24] MEDS ORDERED: FURO40TA2 PO (12:16)
[2020-11-24] MEDS ORDERED: ASPI81TA26 PO (12:16)
[2020-11-24] MEDS ORDERED: LACTULOSE 20 GM/30 ML SYRUP UD PO PRN (12:20)
[2020-11-24 12:23] LABS: RSV AMPLIFICATION NEGATIVE (NEGATIVE)
[2020-11-24] MEDS: NS 1,000 ML IV SCH ×2 (12:27→21:39)
--- NOTE | 2020-11-24 12:42 | HPEPDOC ---
General Date of Admission Date of Service: Nov 24, 2020 Primary Care Physician: KVNG CAMPA D.O. Attending Physician: IGGY ROMERO MD Chief Complaint The patient is a 65-year-old male admitted with a reason for visit of FALL. Source: Patient, Family Exam Limitations: No limitations Timing/Duration: Other (Pupils) Severity: Moderate Associated Symptoms: Malaise, Nausea, Weakness History of Present Illness This is 65 years old pleasant gentleman with past medical history of CA pancreas status post pulse procedure in 2017, status post chemotherapy in 2017, hypertension, hyperlipidemia, BPH, type 2 diabetes mellitus, obesity, history of SVT suffered an episode of dizziness followed by fall. Patient was found hypotensive on the field and again he was found with orthostatic hypotension in ED and admitted with possible syncope. Patient responded very well to IV hydration in ED. Patient also complaining of generalized abdominal pain all over the abdomen since last few days, he receives paracentesis every 7 to 10 days and is scheduled again in the next few days. Generalized abdominal pain is associated with nausea but no vomiting no fever no chest pain or shortness of breath. Home Medications Scheduled Aspirin (Aspirin EC) 81 Mg Tablet.dr, 81 MG PO DAILY, (Reported) Cholecalciferol (Vitamin D3) (Vitamin D3) 1,000 Unit Tablet, 1,000 UNITS PO DAILY, (Reported) Furosemide (Furosemide) 40 Mg Tablet, 40 MG PO DAILY, (Reported) Lactulose (Constulose) 10 Gm/15 Ml Solution, 30 ML PO BID, (Reported) Omeprazole (Omeprazole) 20 Mg Capsule.dr, 20 MG PO DAILY, (Reported) Spironolactone (Spironolactone) 100 Mg Tablet, 100 MG PO BID, (Reported) Scheduled PRN Acetaminophen (Acetaminophen) 500 Mg Tablet, 1,000 MG PO Q6H PRN for PAIN LEVEL 1-5, (Reported) Lactulose (Lactulose) 10 Gm/15 Ml Solution, 30 ML PO DAILY PRN for CONSTIPATION, (Reported) Allergies Coded Allergies: No Known Allergies (Unverified , 01/08/18) Past Medical History Medical History Hypertension, CA pancreas, hyperlipidemia, BPH, diabetes mellitus type 2, obesity, pancreatic cancer, history of SVT, sigmoid polyps and tubular adenomas, internal hemorrhoids Surgical History S/p cholecystectomy, cyst removal, right knee repair, Whipple's procedure in 2017 at [facility] Family History Reviewed and noncontributory Social History * Smoker: Denies Alcohol: Denies Drugs: denies Denies alcohol drugs or IVDA A-FIB/CHADSVASC A-FIB History Current/History of A-Fib/PAF?: No Review of Systems Constitutional: Reports: Malaise, Weakness Eyes: Denies: Pain, Vision change, Conjunctivae inflammation, Eyelid inflammation, Redness, Other ENT: Denies: Head Aches, Ear Pain, Dysphagia, Sinus Congestion, Post Nasal Drip, Sore Throat, Epistaxis, Other Symptoms Skin: Denies: Rash, Lesions, Jaundice, Bruising, Itching, Dry, Breakdown, Nail Changes, Other Pulmonary: Denies: Dyspnea, Cough, Pleuritic Chest Pain, Other Symptoms Cardiovascular: Denies: Chest Pain, Palpitations, Orthopnea, Paroxysmal Noc. Dyspnea, Edema, Lt Headedness, Other Symptoms Gastrointestinal: Reports: Nausea, Abdominal Pain Genitourinary: Denies: Dysuria, Frequency, Incontinence, Hematuria, Retention, Other Symptoms Hematologic: Denies: Bruising, Bleeding Excessively, Petecchia, Purpura, Enlarged Lymph Nodes, Other Hematologic Endocrine: Denies: Polydipsia, Polyphagia, Polyuria, Heat Intolerance, Cold Intolerance, Other Endocrine Sx Musculoskeletal: Denies: Neck Pain, Back Pain, Shoulder Pain, Arm Pain, Hand Pain, Leg Pain, Foot Pain, Joint Pain, Muscle Pain, Spasms, Other Symptoms Neurological: Denies: Weakness, Numbness, Incoordination, Change in speech, Confusion, Seizures, Other Symptoms Psych: Denies: Mood Normal, Anxiety, Depression, Memory Issues, Thoughts of Self Harm, Anger, Thoughts of Harming Other, Other Psych Physical Examination General Exam: Positive: Alert Eye Exam: Positive: PERRLA, Conjunctiva & lids normal ENT Exam: Positive: Atraumatic Neck Exam: Positive: Supple, JVD Chest Exam: Positive: Clear to auscultation, Normal air movement Heart Exam: Positive: Rate Normal Abdomen Exam: Positive: Normal bowel sounds, Soft, Other (Nontender bowel sounds present) Extremity Exam: Negative: Clubbing, Cyanosis, Edema, Normal pulses, Tenderness, Swelling, Other Skin Exam: Negative: Nl turgor and temperature, Rash, Breakdown, Lesion, Pruritus, Other skin issue Neuro Exam: Negative: Normal Gait, Normal Speech, Strength at 5/5 X4 ext, Normal Tone, Sensation Intact, Cranial Nerves 3-12 NL, Reflexes 2+, Other Psych Exam: Negative: Mental status NL, Mood NL, Anxiety, Memory Intact, Oriented x 3, Other Vital Signs Vital Signs Date Time Temp Pulse Resp B/P (MAP) Pulse Ox O2 Delivery O2 Flow Rate FiO2 11/24/20 11:33 74 16 99 Room Air 11/24/20 11:30 102/57 (72) 11/24/20 07:18 97.8 Laboratory Data Labs 24H Laboratory Tests 2 11/24/20 07:52: Immature Granulocyte % (Auto) 0.6, Neutrophils (%) (Auto) 85.4H, Lymphocytes (%) (Auto) 7.0L, Monocytes (%) (Auto) 6.7, Eosinophils (%) (Auto) 0.2, Basophils (%) (Auto) 0.1, Neutrophils # (Auto) 10.6H, Lymphocytes # (Auto) 0.9L, Monocytes # (Auto) 0.8, Eosinophils # (Auto) 0.0, Basophils # (Auto) 0.0, Nucleated Red Blood Cells % (auto) 0.0, Anion Gap 11, Glomerular Filtration Rate 50.7, Calcium Level 8.2L, Total Bilirubin 3.0H, Direct Bilirubin 0.9H, Aspartate Amino Transf (AST/SGOT) 48H, Alanine Aminotransferase (ALT/SGPT) 34, Alkaline Phosphatase 137H, Total Creatine Kinase 62, Creatine Kinase MB < 1.0, Creatine Kinase MB Relative Index 1.61, Troponin I < 0.02, Total Protein 5.4L, Albumin 2.3L, Albumin/Globulin Ratio 0.7, Lipase < 10L, Thyroid Stimulating Hormone (TSH) 1.290, Free Thyroxine 1.74H 11/24/20 11:22: Coronavirus (COVID-19)(PCR) NEGATIVE, Influenza Type A (RT-PCR) NEGATIVE, Influenza Type B (RT-PCR) NEGATIVE, Respiratory Syncytial Virus (PCR) NEGATIVE CBC/BMP Laboratory Tests 11/24/20 07:52 Problems (1) Syncope Status: Acute Response to Treatment: Uncontrolled Discussed With: Other Discussed With: (ED attending) (2) Ascites Status: Acute Response to Treatment: Compensated Discussed With: Other Discussed With: (ED attending) (3) Orthostatic hypotension Status: Acute Response to Treatment: Improving Discussed With: Other Discussed With: (ED attending) Plan / VTE VTE Prophylaxis Ordered?: Yes Plan Plan Admit patient to MedSurg floor with the presyncope under telemetry and continuous pulse ox Start IV fluids normal saline at 100 cc/h Echocardiogram in a.m. Continue all home medications Patient will probably require paracentesis Patient is a history of cirrhosis after his chemotherapy and receives paracentesis every 7 to 10 days with increasing frequency recently. IR for paracentesis and send peritoneal fluid for cultures and smears Clinically there is no evidence of infection of peritoneum examination CBC CMP ammonia in a.m. Once patient vital signs are stable and work-up is negative hopefully will be discharged home and he can follow-up with [facility] with his oncologist for further work-up and management for possible recurrence of pancreatic cancer as etiology of her cirrhosis is still unknown. DVT prophylaxis with bilateral SCDs Diet is a diabetic diet with fingerstick blood sugar before every meal and at bedtime with coverage. IVF: Initiate Diet: Continue Current Activity: Continue Current Medications: Replete Electrolytes IV Diagnostics: Check Labs, Other Diagnostics (Paracentesis) Anticipated Discharge: Home IGGY ROMERO MD Nov 24, 2020 12:42
[2020-11-24] MEDS ORDERED: GLUCAGON INJ 1MG VIAL SC PRN (12:45)
[2020-11-24] MEDS ORDERED: DEXTROSE 50% 50 ML SYRINGE IV PRN (12:45)
[2020-11-24] MEDS ORDERED: GLUCOSE 4GM CHEW TABLET PO PRN (12:45)
--- NOTE | 2020-11-24 15:07 | ECGEPIP ---
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
[2020-11-24] MEDS: HumaLOG INSULIN (NovoLOG) PER UNIT SC SCH ×2 (17:30→21:00)
[2020-11-24 22:20] VITALS: BP 107/67
[2020-11-25 06:00] VITALS: BP 105/67
[2020-11-25 06:26] LABS: HEMATOCRIT 31.7 % (42.0-52.0); HEMOGLOBIN 10.7 g/dl (13.5-17.5); MEAN CORPUSCULAR HGB CONC 33.8 g/dl (32.0-36.5); MEAN CORPUSCULAR VOLUME 97.8 fl (80.0-96.0); PLATELET COUNT, AUTOMATED 156 10^3/uL (150-450); RED BLOOD COUNT 3.24 10^6/uL (4.30-6.10); WHITE BLOOD COUNT 6.7 10^3/uL (4.0-10.0)
[2020-11-25 07:01] LABS: ALBUMIN 1.9 GM/DL (3.2-5.2); ALT/SGPT 30 U/L (12-78); BILIRUBIN,TOTAL 1.6 MG/DL (0.2-1.0); BLOOD UREA NITROGEN 18 MG/DL (7-18); CALCIUM LEVEL 7.6 MG/DL (8.8-10.2); CARBON DIOXIDE LEVEL 26 MEQ/L (21-32); CHLORIDE LEVEL 105 MEQ/L (98-107); CREATININE FOR GFR 1.08 MG/DL (0.70-1.30); GLOMERULAR FILTRATION RATE > 60.0 (>49); GLUCOSE, FASTING 84 MG/DL (70-100); MAGNESIUM LEVEL 2.1 MG/DL (1.8-2.4); POTASSIUM SERUM 4.6 MEQ/L (3.5-5.1); SODIUM LEVEL 137 MEQ/L (136-145); TOTAL PROTEIN 4.5 GM/DL (6.4-8.2)
[2020-11-25] MEDS: HumaLOG INSULIN (NovoLOG) PER UNIT SC SCH ×4 (07:30→21:00)
[2020-11-25] MEDS: NS 1,000 ML IV SCH (07:32)
[2020-11-25] MEDS: OMEPRAZOLE 20 MG CAP PO SCH (09:49)
[2020-11-25] MEDS: DOCUSATE SODIUM 100MG CAPSULE PO SCH ×2 (09:49→21:04)
[2020-11-25] MEDS: VITAMIN D 1,000 INTERNATIONAL UNITS TABLET PO SCH (09:49)
[2020-11-25] MEDS: ASPIRIN 81MG ENTERIC TABLET PO SCH (09:49)
[2020-11-25 10:00] VITALS: BP 107/68
--- NOTE | 2020-11-25 11:59 | IPNPDOC ---
Subjective Date Seen The patient was seen on 11/25/20. Subjective Chief Complaint/HPI Patient is comfortable no distress he wants his home medication to be restarted again. General: Denies: ROS Unobtainable, Chills, Night Sweats, Fatigue, Malaise, Normal Appetite, Other Symptoms Constitutional: Denies: Chills, Fever, Malaise, Night Sweats, Weakness, Fatigue, Weight Loss, Lethargy, Other Eyes: Denies: Pain, Vision change, Conjunctivae inflammation, Eyelid inflam mation, Redness, Other ENT: Denies: Head Aches, Ear Pain, Dysphagia, Sinus Congestion, Post Nasal Drip, Sore Throat, Epistaxis, Other Symptoms Skin: Denies: Rash, Lesions, Jaundice, Bruising, Itching, Dry, Breakdown, Nail Changes, Other Pulmonary: Denies: Dyspnea, Cough, Pleuritic Chest Pain, Other Symptoms Cardiovascular: Denies: Chest Pain, Palpitations, Orthopnea, Paroxysmal Noc. Dyspnea, Edema, Lt Headedness, Other Symptoms Gastrointestinal: Reports: Other Symptoms (Some nausea and generalized abdominal pain) Genitourinary: Denies: Dysuria, Frequency, Incontinence, Hematuria, Retention, Other Symptoms Hematologic: Denies: Bruising, Bleeding Excessively, Petecchia, Purpura, Enlarged Lymph Nodes, Other Hematologic Endocrine: Denies: Polydipsia, Polyphagia, Polyuria, Heat Intolerance, Cold Intolerance, Other Endocrine Sx Musculoskeletal: Denies: Neck Pain, Back Pain, Shoulder Pain, Arm Pain, Hand Pain, Leg Pain, Foot Pain, Joint Pain, Muscle Pain, Spasms, Other Symptoms Neurological: Denies: Weakness, Numbness, Incoordination, Change in speech, Confusion, Seizures, Other Symptoms Psych: Denies: Mood Normal, Anxiety, Depression, Memory Issues, Thoughts of Self Harm, Anger, Thoughts of Harming Other, Other Psych Objective Physical Examination ENT Exam: Positive: Atraumatic Neck Exam: Positive: Supple, JVD Chest Exam: Positive: Clear to auscultation, Normal air movement Heart Exam: Positive: Rate Normal Abdomen Exam: Positive: Normal bowel sounds, Soft, Other (Nontender bowel sounds present) Extremity Exam: Positive: Other (No clubbing sinus edema) Skin Exam: Positive: Nl turgor and temperature Assessment /Plan Problems (1) Syncope Status: Acute Response to Treatment: Uncontrolled Discussed With: Other Discussed With: (ED attending) (2) Ascites Status: Acute Response to Treatment: Compensated Discussed With: Other Discussed With: (ED attending) (3) Orthostatic hypotension Status: Acute Response to Treatment: Improving Discussed With: Other Discussed With: (ED attending) Plan/VTE VTE Prophylaxis Ordered?: Yes Plan IVF: Initiate Diet: Continue Current Activity: Continue Current Medications: Replete Electrolytes IV Diagnostics: Check Labs, Other Diagnostics (Paracentesis) Anticipated Discharge: Home Patient was admitted to [facility] floor with tele Patient seems to be clinically stable he was started on IV fluids will will be DC'd today as he has good oral intake He does have a slightly elevated ammonia to 44 will is restart his lactulose 30 mg p.o. twice daily Interval restart his home meds as well with holding parameters Spoke with the interventional radiology he is scheduled for paracentesis on coming Monday Once patient vital signs are stable and work-up is negative hopefully will be discharged home and he can follow-up with [facility] with his oncologist for further work-up and management for possible recurrence of pancreatic cancer as etiology of her cirrhosis is still unknown. DVT prophylaxis with bilateral SCDs Diet is a diabetic diet with fingerstick blood sugar before every meal and at bedtime with coverage. VS, I&O, 24H, Fishbone Vital Signs/I&O Vital Signs Date Time Temp Pulse Resp B/P (MAP) Pulse Ox O2 Delivery O2 Flow Rate FiO2 11/25/20 10:00 98.5 91 15 107/68 (81) 99 Room Air I&O- Last 24 Hours up to 6 AM 11/25/20 06:00 Intake Total 1150 ml Output Total 0 ml Balance 1150 ml Laboratory Data 24H LABS Laboratory Tests 2 11/24/20 18:24: Bedside Glucose (Misc Panel) 98 11/24/20 21:02: Bedside Glucose (Misc Panel) 102 11/25/20 05:44: Nucleated Red Blood Cells % (auto) 0.0, Anion Gap 6L, Glomerular Filtration Rate > 60.0, Calcium Level 7.6L, Magnesium Level 2.1, Total Bilirubin 1.6H, Aspartate Amino Transf (AST/SGOT) 32, Alanine Aminotransferase (ALT/SGPT) 30, Alkaline Phosphatase 111, Ammonia 44H, Total Protein 4.5L, Albumin 1.9L, Albumin/Globulin Ratio 0.7 CBC/BMP Laboratory Tests 11/25/20 05:44 IGGY ROMERO MD Nov 25, 2020 11:59
[2020-11-25] MEDS: SPIRONOLACTONE 50 MG TAB PO SCH ×2 (13:01→21:04)
[2020-11-25] MEDS: LACTULOSE 20 GM/30 ML SYRUP UD PO SCH ×2 (13:02→21:04)
[2020-11-25] MEDS: ONDANSETRON 4MG/2ML VIAL IV PRN ×2 (13:02→21:04)
[2020-11-25] MEDS: FUROSEMIDE 40 MG TAB PO SCH (13:02)
[2020-11-25 14:00] VITALS: BP 113/69
[2020-11-25] MEDS ORDERED: LACTULOSE 20 GM/30 ML SYRUP UD PO SCH (21:00)
[2020-11-25] MEDS: ACETAMINOPHEN TAB 650MG DOSE (2X325MG) PO PRN (21:05)
[2020-11-25 21:30] VITALS: BP 109/75
[2020-11-26 02:00] VITALS: BP 102/60
[2020-11-26 06:00] VITALS: BP 119/68
[2020-11-26] MEDS: HumaLOG INSULIN (NovoLOG) PER UNIT SC SCH ×4 (08:01→19:56)
[2020-11-26] MEDS: ASPIRIN 81MG ENTERIC TABLET PO SCH (08:02)
[2020-11-26] MEDS: FUROSEMIDE 40 MG TAB PO SCH (08:02)
[2020-11-26] MEDS: OMEPRAZOLE 20 MG CAP PO SCH (08:02)
[2020-11-26] MEDS: VITAMIN D 1,000 INTERNATIONAL UNITS TABLET PO SCH (08:02)
[2020-11-26] MEDS: SPIRONOLACTONE 50 MG TAB PO SCH ×2 (08:02→21:35)
[2020-11-26] MEDS: DOCUSATE SODIUM 100MG CAPSULE PO SCH ×2 (08:02→21:00)
[2020-11-26] MEDS: LACTULOSE 20 GM/30 ML SYRUP UD PO SCH ×2 (08:02→21:35)
[2020-11-26] MEDS: ACETAMINOPHEN TAB 650MG DOSE (2X325MG) PO PRN ×2 (08:07→21:35)
[2020-11-26 10:00] VITALS: BP 114/72
--- NOTE | 2020-11-26 10:18 | IPNPDOC ---
Subjective Date Seen The patient was seen on 11/26/20. Subjective Chief Complaint/HPI Patient is comfortable in restraints offers no new complaints he feels like his ascites is increasing General: Denies: ROS Unobtainable, Chills, Night Sweats, Fatigue, Malaise, Normal Appetite, Other Symptoms Constitutional: Denies: Chills, Fever, Malaise, Night Sweats, Weakness, Fatigue, Weight Loss, Lethargy, Other Skin: Denies: Rash, Lesions, Jaundice, Bruising, Itching, Dry, Breakdown, Nail Changes, Other Pulmonary: Denies: Dyspnea, Cough, Pleuritic Chest Pain, Other Symptoms Cardiovascular: Denies: Chest Pain, Palpitations, Orthopnea, Paroxysmal Noc. Dyspnea, Edema, Lt Headedness, Other Symptoms Gastrointestinal: Denies: Nausea, Vomiting, Abdominal Pain, Diarrhea, Constipation, Melena, Hematochezia, Other Symptoms Musculoskeletal: Denies: Neck Pain, Back Pain, Shoulder Pain, Arm Pain, Hand Pain, Leg Pain, Foot Pain, Joint Pain, Muscle Pain, Spasms, Other Symptoms Neurological: Denies: Weakness, Numbness, Incoordination, Change in speech, Confusion, Seizures, Other Symptoms Objective Physical Examination ENT Exam: Positive: Atraumatic Neck Exam: Positive: Supple, JVD Chest Exam: Positive: Clear to auscultation, Normal air movement Heart Exam: Positive: Rate Normal Abdomen Exam: Positive: Normal bowel sounds, Soft, Other (Nontender bowel sounds present) Extremity Exam: Positive: Other (No clubbing sinus edema) Skin Exam: Positive: Nl turgor and temperature Assessment /Plan Problems (1) Syncope Status: Acute Response to Treatment: Uncontrolled Discussed With: Other Discussed With: (ED attending) (2) Ascites Status: Acute Response to Treatment: Compensated Discussed With: Other Discussed With: (ED attending) (3) Orthostatic hypotension Status: Acute Response to Treatment: Improving Discussed With: Other Discussed With: (ED attending) Plan/VTE VTE Prophylaxis Ordered?: Yes Plan IVF: Initiate Diet: Continue Current Activity: Continue Current Medications: Replete Electrolytes IV Diagnostics: Check Labs, Other Diagnostics (Paracentesis) Anticipated Discharge: Home Patient was admitted to [facility] floor with tele Patient seems to be clinically stable he was started on IV fluids will will be DC'd today as he has good oral intake Lactulose increased to 30 mg p.o. twice daily for elevated ammonia We will continue all his home medications as he has been taking as an outpatient Patient is scheduled for paracentesis tomorrow morning and hopefully after well he will be discharged home Once patient vital signs are stable and work-up is negative hopefully will be discharged home and he can follow-up with [facility] with his oncologist for further work-up and management for possible recurrence of pancreatic cancer as etiology of her cirrhosis is still unknown. DVT prophylaxis with bilateral SCDs Diet is a diabetic diet with fingerstick blood sugar before every meal and at bedtime with coverage. VS, I&O, 24H, Fishbone Vital Signs/I&O Vital Signs Date Time Temp Pulse Resp B/P (MAP) Pulse Ox O2 Delivery O2 Flow Rate FiO2 11/26/20 06:00 97.6 85 18 119/68 (85) 98 Room Air I&O- Last 24 Hours up to 6 AM 11/26/20 06:00 Intake Total 2055 ml Balance 2055 ml Laboratory Data 24H LABS Laboratory Tests 2 11/25/20 12:01: Bedside Glucose (Misc Panel) 171H 11/25/20 17:24: Bedside Glucose (Misc Panel) 103 11/25/20 21:11: Bedside Glucose (Misc Panel) 110 11/26/20 05:59: Bedside Glucose (Misc Panel) 115 IGGY ROMERO MD Nov 26, 2020 10:18
--- NOTE | 2020-11-26 10:19 | ECHO ---
ECHOCARDIOGRAM DATE OF PROCEDURE: 11/25/2020 Age: 65 Gender: Male Height: 178 cm Weight: 73 kg REFERRING PHYSICIAN: Montana Merrill M.D. PATIENT LOCATION: Room 4205. REASON FOR STUDY: Syncope. 2D MEASUREMENTS: IVS 0.6 cm LV 4.9 cm LVPW 0.6 cm LA 3.5 cm Aorta 3.6 cm DOPPLER MEASUREMENT Peak velocity across the LVOT 0.8 m/s Mitral E 0.5 Mitral A 0.6 with a ratio of 0.9 2D COMMENTS: 1. Normal left ventricular size, wall thickness, and normal global left ventricular systolic function with a hyperdynamic left ventricle. The estimated left ventricular systolic ejection fraction is 65% to 70%. 2. Normal left atrium. Normal right atrium and right ventricle. 3. The atrial septum appeared to be normal without evidence of defect or shunt. 4. Normal aortic root. 5. No pericardial effusion seen. 6. The aortic valve, mitral valve, and tricuspid valve appear to be normal. The pulmonic valve and proximal pulmonary artery branches were not well visualized. 7. The inferior vena cava was not visualized. DOPPLER: No significant valvular abnormalities detected. Abnormal relaxation pattern was noted across the mitral valve leaflets, as well as the mitral valve annulus consistent with features of grade 1 left ventricular diastolic dysfunction. IMPRESSION: 1. Normal global left ventricular systolic function. There are some features of grade 1 left ventricular diastolic dysfunction manifested by abnormal relaxation. 2. No significant valvular abnormalities detected. MTDD
[2020-11-26 15:32] VITALS: BP 110/64
[2020-11-26] MEDS: ONDANSETRON 4MG/2ML VIAL IV PRN (18:32)
[2020-11-26] MEDS ORDERED: METOCLOPRAMIDE INJ 10MG/2ML VIAL (J2765 PER 1) IV ONE (20:30)
[2020-11-26 20:45] VITALS: BP 127/85
[2020-11-27 02:00] VITALS: BP 98/56
[2020-11-27 02:21] LABS: BASO % 0.1 % (0.0-1.0); EOS % 0.1 % (0.0-3.0); HEMATOCRIT 34.2 % (42.0-52.0); HEMOGLOBIN 11.6 g/dl (13.5-17.5); LYMPH # 0.6 10^3/uL (1.5-5.0); LYMPH % 3.9 % (24.0-44.0); MEAN CORPUSCULAR HEMOGLOBIN 33.1 pg (27.0-33.0); MEAN CORPUSCULAR HGB CONC 33.9 g/dl (32.0-36.5); MEAN CORPUSCULAR VOLUME 97.7 fl (80.0-96.0); MONO # 1.2 10^3/uL (0.0-0.8); MONO % 7.1 % (2.0-8.0); NEUTROPHILS # 14.4 10^3/uL (1.5-8.5); NEUTROPHILS % 88.1 % (36.0-66.0); PLATELET COUNT, AUTOMATED 193 10^3/uL (150-450); WHITE BLOOD COUNT 16.3 10^3/uL (4.0-10.0)
[2020-11-27 02:49] LABS: ALBUMIN 2.2 GM/DL (3.2-5.2); BILIRUBIN,TOTAL 2.3 MG/DL (0.2-1.0); CALCIUM LEVEL 7.7 MG/DL (8.8-10.2); CREATININE FOR GFR 1.61 MG/DL (0.70-1.30); GLOMERULAR FILTRATION RATE 46.4 (>49); POTASSIUM SERUM 5.3 MEQ/L (3.5-5.1); TOTAL PROTEIN 4.9 GM/DL (6.4-8.2)
[2020-11-27] MEDS: PIPERACILLIN/TAZOBACTAM SOD 3.375 GM in D5W MINI-BAG PLUS 50 ML IV SCH ×4 (03:12→20:18)
[2020-11-27 06:00] VITALS: BP 101/61
[2020-11-27] MEDS: HumaLOG INSULIN (NovoLOG) PER UNIT SC SCH ×4 (08:32→20:17)
[2020-11-27] MEDS: LACTULOSE 20 GM/30 ML SYRUP UD PO SCH ×2 (08:32→20:17)
[2020-11-27] MEDS: DOCUSATE SODIUM 100MG CAPSULE PO SCH ×2 (08:33→20:17)
[2020-11-27] MEDS: VITAMIN D 1,000 INTERNATIONAL UNITS TABLET PO SCH (08:33)
[2020-11-27] MEDS: OMEPRAZOLE 20 MG CAP PO SCH (08:33)
[2020-11-27] MEDS: ASPIRIN 81MG ENTERIC TABLET PO SCH ×2 (08:33→08:37)
[2020-11-27] MEDS: SPIRONOLACTONE 50 MG TAB PO SCH ×2 (08:37→20:17)
[2020-11-27] MEDS: FUROSEMIDE 40 MG TAB PO SCH (08:37)
[2020-11-27 10:00] VITALS: BP 111/66
--- NOTE | 2020-11-27 10:45 | IPNPDOC ---
Subjective Date Seen The patient was seen on 11/27/20. Subjective Chief Complaint/HPI Patient is spiked fever last night and has been started on Zosyn, is scheduled for paracentesis today General: Reports: Other Symptoms (Fever) Constitutional: Reports: Fever Pulmonary: Denies: Dyspnea, Cough, Pleuritic Chest Pain, Other Symptoms Cardiovascular: Denies: Chest Pain, Palpitations, Orthopnea, Paroxysmal Noc. Dyspnea, Edema, Lt Headedness, Other Symptoms Gastrointestinal: Reports: Other Symptoms (Distention); Denies: Nausea, Vomiting, Abdominal Pain, Diarrhea, Constipation, Melena, Hematochezia Musculoskeletal: Denies: Neck Pain, Back Pain, Shoulder Pain, Arm Pain, Hand Pain, Leg Pain, Foot Pain, Joint Pain, Muscle Pain, Spasms, Other Symptoms Neurological: Denies: Weakness, Numbness, Incoordination, Change in speech, Confusion, Seizures, Other Symptoms Objective Physical Examination General Exam: Positive: Alert, Cooperative Chest Exam: Positive: Clear to auscultation, Normal air movement Heart Exam: Positive: Rate Normal Abdomen Exam: Positive: Normal bowel sounds, Soft, Other (Nontender bowel sounds present) Extremity Exam: Positive: Other (No clubbing sinus edema) Skin Exam: Positive: Nl turgor and temperature Assessment /Plan Problems (1) Syncope Status: Acute Response to Treatment: Uncontrolled Discussed With: Other Discussed With: (ED attending) (2) Ascites Status: Acute Response to Treatment: Compensated Discussed With: Other Discussed With: (ED attending) (3) Orthostatic hypotension Status: Acute Response to Treatment: Improving Discussed With: Other Discussed With: (ED attending) Plan/VTE VTE Prophylaxis Ordered?: Yes Plan IVF: Initiate Diet: Continue Current Activity: Continue Current Medications: Replete Electrolytes IV Diagnostics: Check Labs, Other Diagnostics (Paracentesis) Anticipated Discharge: Home Patient was admitted to [facility] floor with tele Patient has good oral intake IV fluids were DC'd Patient's ammonia level is decreased to 81 but will continue lactulose Patient did spike fever last night and started on Zosyn, he is scheduled for paracentesis today but I will also request body fluid cultures and lab work as well to rule out SBP Tylenol as needed for fever and pain Once patient vital signs are stable and work-up is negative hopefully will be discharged home and he can follow-up with [facility] with his oncologist for further work-up and management for possible recurrence of pancreatic cancer as etiology of his cirrhosis is still unknown. DVT prophylaxis with bilateral SCDs Diet is a diabetic diet with fingerstick blood sugar before every meal and at bedtime with coverage. VS, I&O, 24H, Fishbone Vital Signs/I&O Vital Signs Date Time Temp Pulse Resp B/P (MAP) Pulse Ox O2 Delivery O2 Flow Rate FiO2 11/27/20 10:00 98.7 95 14 111/66 (81) 96 Room Air I&O- Last 24 Hours up to 6 AM 11/27/20 05:59 Intake Total 430 ml Output Total 0 ml Balance 430 ml Laboratory Data 24H LABS Laboratory Tests 2 11/26/20 12:08: Bedside Glucose (Misc Panel) 121H 11/26/20 17:26: Bedside Glucose (Misc Panel) 112 11/26/20 19:54: Bedside Glucose (Misc Panel) 174H 11/27/20 02:10: Immature Granulocyte % (Auto) 0.7, Neutrophils (%) (Auto) 88.1H, Lymphocytes (%) (Auto) 3.9L, Monocytes (%) (Auto) 7.1, Eosinophils (%) (Auto) 0.1, Basophils (%) (Auto) 0.1, Neutrophils # (Auto) 14.4H, Lymphocytes # (Auto) 0.6L, Monocytes # (Auto) 1.2H, Eosinophils # (Auto) 0.0, Basophils # (Auto) 0.0, Nucleated Red Blood Cells % (auto) 0.0, Anion Gap 7L, Glomerular Filtration Rate 46.4L, Calcium Level 7.7L, Magnesium Level 2.0, Total Bilirubin 2.3H, Aspartate Amino Transf (AST/SGOT) 41H, Alanine Aminotransferase (ALT/SGPT) 35, Alkaline Phosphatase 129H, Ammonia 81H, Total Protein 4.9L, Albumin 2.2L, Albumin/Globulin Ratio 0.8 11/27/20 06:11: Bedside Glucose (Misc Panel) 113 CBC/BMP Laboratory Tests 11/27/20 02:10 IGGY ROMERO MD Nov 27, 2020 10:44
[2020-11-27 14:00] VITALS: BP 98/55
[2020-11-27 14:32] LABS: APPEARANCE, BODY FLUID CLEAR (CLEAR); PERITONEAL FL COLOR COLORLESS (COLORLESS); SOURCE, BODY FLUID PERITONEAL; SPEC. GRAVITY BODY FLUIDS < 1.000 (NOT ESTABLISHED)
[2020-11-27 14:57] LABS: SOURCE, BODY FLUID ALBUMIN PERITONEAL; SOURCE, BODY FLUID GLUCOSE PERITONEAL; SOURCE, BODY FLUID TOT PROTEIN PERITONEAL; TOTAL PROTEIN, BODY FLUID 0.6 G/DL (NOT ESTABLISHED)
--- NOTE | 2020-11-27 14:58 | REP ---
INDICATION: ascites. COMPARISON: None. TECHNIQUE: The procedure was performed under the direct supervision of Dr. Childress. The risks and benefits of the procedure were explained to the patient and informed consent was obtained. The largest pocket of fluid was localized in the left flank using ultrasound guidance. The skin was prepped and draped in a sterile fashion. 5 mL of 1% lidocaine was used as a local anesthetic. An 8-Omani multi side-hole catheter was inserted using trocar technique.7750 cc of yellow fluid was withdrawn with a sample sent to the lab for analysis. Estimated blood loss: Less than 1 cc The patient tolerated the procedure well and there were no immediate complications. After the appropriate amount of monitored convalescence, the patient was discharged from the department. FINDINGS: None IMPRESSION: Ultrasound-guided paracentesis [id number] cc of yellow fluid. <Electronically signed by David Peter > 11/27/20 [id number] <Electronically signed by Darvin Childress > 11/27/20 [id number]
[2020-11-27 18:00] VITALS: BP 101/59
[2020-11-27 22:00] VITALS: BP 97/56
[2020-11-28 02:00] VITALS: BP 104/59
[2020-11-28] MEDS: PIPERACILLIN/TAZOBACTAM SOD 3.375 GM in D5W MINI-BAG PLUS 50 ML IV SCH ×4 (03:02→19:59)
[2020-11-28 06:00] VITALS: BP 114/68
[2020-11-28 06:09] LABS: BASO % 0.2 % (0.0-1.0); EOS # 0.2 10^3/uL (0.0-0.5); EOS % 2.6 % (0.0-3.0); HEMATOCRIT 33.2 % (42.0-52.0); HEMOGLOBIN 11.1 g/dl (13.5-17.5); LYMPH # 1.4 10^3/uL (1.5-5.0); LYMPH % 15.2 % (24.0-44.0); MEAN CORPUSCULAR HEMOGLOBIN 32.9 pg (27.0-33.0); MEAN CORPUSCULAR HGB CONC 33.4 g/dl (32.0-36.5); MEAN CORPUSCULAR VOLUME 98.5 fl (80.0-96.0); MONO # 0.8 10^3/uL (0.0-0.8); MONO % 8.2 % (2.0-8.0); NEUTROPHILS # 6.8 10^3/uL (1.5-8.5); NEUTROPHILS % 73.5 % (36.0-66.0); PLATELET COUNT, AUTOMATED 149 10^3/uL (150-450); RED BLOOD COUNT 3.37 10^6/uL (4.30-6.10); WHITE BLOOD COUNT 9.3 10^3/uL (4.0-10.0)
[2020-11-28 06:37] LABS: ALT/SGPT 28 U/L (12-78); BILIRUBIN,TOTAL 1.9 MG/DL (0.2-1.0); BLOOD UREA NITROGEN 18 MG/DL (7-18); CALCIUM LEVEL 7.7 MG/DL (8.8-10.2); CARBON DIOXIDE LEVEL 27 MEQ/L (21-32); CHLORIDE LEVEL 99 MEQ/L (98-107); CREATININE FOR GFR 1.16 MG/DL (0.70-1.30); GLOMERULAR FILTRATION RATE > 60.0 (>49); GLUCOSE, FASTING 93 MG/DL (70-100); MAGNESIUM LEVEL 2.3 MG/DL (1.8-2.4); POTASSIUM SERUM 4.7 MEQ/L (3.5-5.1); SODIUM LEVEL 130 MEQ/L (136-145); TOTAL PROTEIN 4.6 GM/DL (6.4-8.2)
[2020-11-28] MEDS: HumaLOG INSULIN (NovoLOG) PER UNIT SC SCH ×4 (07:30→20:33)
[2020-11-28] MEDS: SPIRONOLACTONE 50 MG TAB PO SCH ×2 (09:00→19:59)
[2020-11-28] MEDS: FUROSEMIDE 40 MG TAB PO SCH (09:00)
[2020-11-28] MEDS: DOCUSATE SODIUM 100MG CAPSULE PO SCH ×2 (09:03→19:58)
[2020-11-28] MEDS: LACTULOSE 20 GM/30 ML SYRUP UD PO SCH ×3 (09:03→20:02)
[2020-11-28] MEDS: VITAMIN D 1,000 INTERNATIONAL UNITS TABLET PO SCH (09:03)
[2020-11-28] MEDS: OMEPRAZOLE 20 MG CAP PO SCH (09:03)
[2020-11-28] MEDS: ASPIRIN 81MG ENTERIC TABLET PO SCH (09:03)
[2020-11-28 10:00] VITALS: BP 102/61
--- NOTE | 2020-11-28 11:13 | IPNPDOC ---
Subjective Date Seen The patient was seen on 11/28/20. Subjective Chief Complaint/HPI Patient feels much better abdominal pain is decreased he had a paracentesis done which drained 7.7 L of fluid. General: Denies: ROS Unobtainable, Chills, Night Sweats, Fatigue, Malaise, Normal Appetite, Other Symptoms Constitutional: Denies: Chills, Fever, Malaise, Night Sweats, Weakness, Fatigue, Weight Loss, Lethargy, Other Pulmonary: Denies: Dyspnea, Cough, Pleuritic Chest Pain, Other Symptoms Cardiovascular: Denies: Chest Pain, Palpitations, Orthopnea, Paroxysmal Noc. Dyspnea, Edema, Lt Headedness, Other Symptoms Gastrointestinal: Denies: Nausea, Vomiting, Abdominal Pain, Diarrhea, Constipation, Melena, Hematochezia, Other Symptoms Musculoskeletal: Denies: Neck Pain, Back Pain, Shoulder Pain, Arm Pain, Hand Pain, Leg Pain, Foot Pain, Joint Pain, Muscle Pain, Spasms, Other Symptoms Neurological: Denies: Weakness, Numbness, Incoordination, Change in speech, Confusion, Seizures, Other Symptoms Psych: Denies: Mood Normal, Anxiety, Depression, Memory Issues, Thoughts of Self Harm, Anger, Thoughts of Harming Other, Other Psych Objective Physical Examination General Exam: Positive: Alert, Cooperative Chest Exam: Positive: Clear to auscultation, Normal air movement Heart Exam: Positive: Rate Normal Abdomen Exam: Positive: Normal bowel sounds, Soft, Other (Nontender bowel sounds present) Extremity Exam: Positive: Other (No clubbing sinus edema) Skin Exam: Positive: Nl turgor and temperature Assessment /Plan Problems (1) Syncope Status: Acute Response to Treatment: Uncontrolled Discussed With: Other Discussed With: (ED attending) (2) Ascites Status: Acute Response to Treatment: Compensated Discussed With: Other Discussed With: (ED attending) (3) Orthostatic hypotension Status: Acute Response to Treatment: Improving Discussed With: Other Discussed With: (ED attending) (4) Bacterial peritonitis Status: Acute Plan/VTE VTE Prophylaxis Ordered?: Yes Plan IVF: Initiate Diet: Continue Current Activity: Continue Current Medications: Replete Electrolytes IV Diagnostics: Check Labs, Other Diagnostics (Paracentesis) Anticipated Discharge: Home Patient had a paracentesis done by IR yesterday with the drainage of 7.7 L of fluid Patient had WBC of 150 in the peritoneal fluid cell count, consistent with a possible spontaneous bacterial peritonitis Please follow-up pending lab work as well as peritoneal fluid culture Patient seems to have responded to IV Zosyn with the decreased WBC count on CBC today He also has responded very well to lactulose for his elevated ammonia level, patient alert oriented x3 in no distress Patient might require infectious disease consult when the rest of the peritoneal fluid studies and cultures and sensitivity are back. Once patient vital signs are stable and work-up is negative hopefully will be discharged home and he can follow-up with [facility] with his oncologist for further work-up and management for possible recurrence of pancreatic cancer as etiology of his cirrhosis is still unknown. DVT prophylaxis with bilateral SCDs Diet is a diabetic diet with fingerstick blood sugar before every meal and at bedtime with coverage. VS, I&O, 24H, Fishbone Vital Signs/I&O Vital Signs Date Time Temp Pulse Resp B/P (MAP) Pulse Ox O2 Delivery O2 Flow Rate FiO2 11/28/20 10:00 97.2 86 17 102/61 (75) 96 Room Air I&O- Last 24 Hours up to 6 AM 11/28/20 06:00 Intake Total 2258 ml Balance 2258 ml Laboratory Data 24H LABS Laboratory Tests 2 11/27/20 11:25: Bedside Glucose (Misc Panel) 118H 11/27/20 13:55: Body Fluid Specific G[place]ord < 1.000, Body Fluid WBC (Auto) 150H, Body Fluid RBC (Auto) < 2, Body Fluid Mononuclear Cells % Auto 85.3H, Fluid Polymorphonuclear Cell % Auto 14.7H, Body Fluid Glucose Source PERITONEAL, Body Fluid Glucose 145, Body Fluid Protein Source PERITONEAL, Body Fluid Total Protein 0.6, Body Fluid Albumin Source PERITONEAL, Body Fluid Albumin 0.4, Peritoneal Fluid Source PERITONEAL, Peritoneal Fluid Color COLORLESS, Peritoneal Fluid Appearance CLEAR 11/27/20 16:24: Bedside Glucose (Misc Panel) 88 11/27/20 20:15: Bedside Glucose (Misc Panel) 149H 11/28/20 05:42: Immature Granulocyte % (Auto) 0.3, Neutrophils (%) (Auto) 73.5H, Lymphocytes (%) (Auto) 15.2L, Monocytes (%) (Auto) 8.2H, Eosinophils (%) (Auto) 2.6, Basophils (%) (Auto) 0.2, Neutrophils # (Auto) 6.8, Lymphocytes # (Auto) 1.4L, Monocytes # (Auto) 0.8, Eosinophils # (Auto) 0.2, Basophils # (Auto) 0.0, Nucleated Red Blood Cells % (auto) 0.0, Anion Gap 4L, Glomerular Filtration Rate > 60.0, Ca lcium Level 7.7L, Magnesium Level 2.3, Total Bilirubin 1.9H, Aspartate Amino Transf (AST/SGOT) 31, Alanine Aminotransferase (ALT/SGPT) 28, Alkaline Phosphatase 111, Total Protein 4.6L, Albumin 2.0L, Albumin/Globulin Ratio 0.8 CBC/BMP Laboratory Tests 11/28/20 05:42 Microbiology Microbiology 11/27/20 Acid Fast Stain, Received Pending 11/27/20 Mycobacterial Culture, Received Pending 11/27/20 Fungal Smear, Received Pending 11/27/20 Fungal Culture, Received Pending 11/27/20 Gram Stain - Final, Resulted 11/27/20 Body Fluid Culture, Resulted Pending 11/27/20 Anaerobic Culture, Resulted Pending IGGY ROMERO MD Nov 28, 2020 11:13
[2020-11-28 14:00] VITALS: BP 98/60
[2020-11-28 18:00] VITALS: BP 95/66
[2020-11-28] MEDS: ACETAMINOPHEN TAB 650MG DOSE (2X325MG) PO PRN (19:59)
[2020-11-28 22:00] VITALS: BP 105/65
[2020-11-29 02:00] VITALS: BP 105/70
[2020-11-29] MEDS: PIPERACILLIN/TAZOBACTAM SOD 3.375 GM in D5W MINI-BAG PLUS 50 ML IV SCH ×4 (03:11→20:37)
[2020-11-29 06:00] VITALS: BP 115/71
[2020-11-29] MEDS: HumaLOG INSULIN (NovoLOG) PER UNIT SC SCH ×4 (07:30→20:28)
[2020-11-29] MEDS: LACTULOSE 20 GM/30 ML SYRUP UD PO SCH ×3 (09:00→20:36)
[2020-11-29] MEDS: DOCUSATE SODIUM 100MG CAPSULE PO SCH ×2 (09:00→20:36)
[2020-11-29] MEDS: OMEPRAZOLE 20 MG CAP PO SCH (09:21)
[2020-11-29] MEDS: ASPIRIN 81MG ENTERIC TABLET PO SCH (09:21)
[2020-11-29] MEDS: FUROSEMIDE 40 MG TAB PO SCH (09:21)
[2020-11-29] MEDS: VITAMIN D 1,000 INTERNATIONAL UNITS TABLET PO SCH (09:21)
[2020-11-29] MEDS: SPIRONOLACTONE 50 MG TAB PO SCH ×2 (09:21→20:36)
[2020-11-29 10:00] VITALS: BP 111/65
[2020-11-29 14:00] VITALS: BP 100/68
--- NOTE | 2020-11-29 17:12 | IPNPDOC ---
Text Note Date of Service The patient was seen on 11/29/20. NOTE SUBJECTIVE: Patient states he feels a lot better today than yesterday. He has a better appetite and no longer has abdominal pain. PHYSICAL EXAMINATION: VITAL SIGNS: see below GENERAL APPEARANCE: Well appearing male with mildly distended abdomen, sitting up in bed, NAD HEENT: Atraumatic, normocephalic. Eyes are anicteric. Mucous membranes are pink and moist CARDIOVASCULAR: NSR, regular rhythm, no noted murmurs LUNGS: CTAB ABDOMEN: Normoactive sounds, soft, slightly ascitic distension without fluid wave. No rebound tenderness or guarding. EXTREMITIES: trace lower extremity edema, no apparent rashes/petechiae. NEUROLOGICAL: Awake, speech is clear, AOx3, no asterixis LABORATORY STUDIES: See below RADIOLOGY STUDIES: No recent ASSESSMENT: PLAN: # Ascites: Patient has slightly elevated WBC of 150 on ascitic fluid following paracentesis not quite meeting diagnostic criteria for SBP and culture/stain showed no specific organism. Fungal cultures are pending. However patient is clinically improving on Zosyn and continues to show improvement in peripheral WBC. Will continue to treat with IV Abx pending full culture result return, however his initial treatment with abx could have resolved intraperitoneal bacterial burden before sampling occurred. Patient will continue to follow up with GI and PCM following discharge as he could have a possible return of pancreatic cancer as a cause of his cirrhosis. This intraperitoneal infection was the likely cause of his fall/syncope as well as his leukocytosis and abdominal pain. Will transition to oral prophy in the next day or two following full clinical improvement on Zosyn. Meds: Zosyn IV Zofran PRN Continue to follow cultures # History of pancreatic cancer s/p pulse procedure and chemo in 2017: Patient will follow up with providers in [place] to discuss additional monitoring in setting of progressive cirrhosis. # DM2: Will continue FSBG and ISS for strict glucose control in setting of infection. # Cirrhosis: Patient is compliant with lactulose, however has only had 1-2 BM per day since admission and has rising ammonia level. He continues to mentate normally, however will increase lactulose today to TID. Child class C with score of 10. MELD 19 with 6.0% 3 month mortality. Meds: Lactulose 30ml TID Spironolactone 100mg daily Lasix 40mg daily Recheck ammonia in the morning # HTN: Not currently on medications. # HLD: Patient has not been taking atorvastatin, no recent lipids to calculate ASCVD. Will defer to PCM for additional management, however given history of HTN and DM, patient would likely benefit from starting atorvastatin. DISPOSITION: med/surg DIET: consistent carbohydrate DVT PROPHY: scds CONSULTS: physical therapy DISCHARGE: d/c to home anticipated in 24-48 hours VS,Fishbone, I+O VS, Fishbone, I+O Vital Signs Date Time Temp Pulse Resp B/P (MAP) Pulse Ox O2 Delivery O2 Flow Rate FiO2 11/29/20 14:00 97.6 103 18 100/68 (79) 100 Room Air I&O- Last 24 Hours up to 6 AM 11/29/20 06:00 Intake Total 2940 ml Balance 2940 ml ERIN OSORIO MD [facility] Nov 29, 2020 17:12
[2020-11-29 18:00] VITALS: BP 106/70
[2020-11-29] MEDS: ACETAMINOPHEN TAB 650MG DOSE (2X325MG) PO PRN (20:47)
[2020-11-29 22:00] VITALS: BP 109/72
[2020-11-30 02:00] VITALS: BP 115/75
[2020-11-30] MEDS: PIPERACILLIN/TAZOBACTAM SOD 3.375 GM in D5W MINI-BAG PLUS 50 ML IV SCH ×2 (03:51→09:46)
[2020-11-30 06:00] VITALS: BP 96/57
[2020-11-30 06:12] LABS: HEMATOCRIT 39.8 % (42.0-52.0); HEMOGLOBIN 13.2 g/dl (13.5-17.5); MEAN CORPUSCULAR HEMOGLOBIN 32.7 pg (27.0-33.0); MEAN CORPUSCULAR HGB CONC 33.2 g/dl (32.0-36.5); MEAN CORPUSCULAR VOLUME 98.5 fl (80.0-96.0); PLATELET COUNT, AUTOMATED 220 10^3/uL (150-450); RED BLOOD COUNT 4.04 10^6/uL (4.30-6.10); WHITE BLOOD COUNT 11.8 10^3/uL (4.0-10.0)
[2020-11-30 06:32] LABS: ALBUMIN 2.2 GM/DL (3.2-5.2); ALT/SGPT 37 U/L (12-78); BILIRUBIN,TOTAL 1.4 MG/DL (0.2-1.0); BLOOD UREA NITROGEN 13 MG/DL (7-18); CARBON DIOXIDE LEVEL 28 MEQ/L (21-32); CHLORIDE LEVEL 99 MEQ/L (98-107); CREATININE FOR GFR 1.12 MG/DL (0.70-1.30); GLOMERULAR FILTRATION RATE > 60.0 (>49); GLUCOSE, FASTING 92 MG/DL (70-100); MAGNESIUM LEVEL 2.2 MG/DL (1.8-2.4); POTASSIUM SERUM 4.9 MEQ/L (3.5-5.1); SODIUM LEVEL 131 MEQ/L (136-145); TOTAL PROTEIN 5.7 GM/DL (6.4-8.2)
[2020-11-30] MEDS: HumaLOG INSULIN (NovoLOG) PER UNIT SC SCH ×4 (06:49→20:35)
--- NOTE | 2020-11-30 07:39 | IPNPDOC ---
Text Note Date of Service The patient was seen on 11/30/20. NOTE SUBJECTIVE: Patient feels significantly improved and was able to ambulate with physical therapy today without any difficulties. PHYSICAL EXAMINATION: VITAL SIGNS: see below GENERAL APPEARANCE: Well appearing male with mildly distended abdomen, sitting up in bed, NAD HEENT: Atraumatic, normocephalic. Eyes are anicteric. Mucous membranes are pink and moist CARDIOVASCULAR: NSR, regular rhythm, no noted murmurs LUNGS: CTAB ABDOMEN: Normoactive sounds, soft, slightly ascitic distension without fluid wave. No rebound tenderness or guarding. EXTREMITIES: trace lower extremity edema, no apparent rashes/petechiae. NEUROLOGICAL: Awake, speech is clear, AOx3, no asterixis LABORATORY STUDIES: See below RADIOLOGY STUDIES: No recent ASSESSMENT: PLAN: # Ascites: Patient has slightly elevated WBC of 150 on ascitic fluid following paracentesis not quite meeting diagnostic criteria for SBP and culture/stain showed no specific organism. Fungal cultures are pending. However patient is clinically improving on Zosyn and continues to show improvement in peripheral WBC. Will continue to treat with IV Abx pending full culture result return or for a total of 5 days if he continues to be symptomatically and clinically improved as his initial treatment with abx could have resolved intraperitoneal bacterial burden before sampling occurred. Patient will continue to follow up with GI and PCM following discharge as he could have a possible return of pancreatic cancer as a cause of his cirrhosis. This intraperitoneal infection was the likely cause of his fall/syncope as well as his leukocytosis and abdominal pain. Will transition to oral prophy upon discharge. Meds: Transition to Rocephin 2g daily. Last day 12/02/2020 Zofran PRN Continue to follow cultures Start on TMP/SMX upon discharge for SBP prophy # History of pancreatic cancer s/p pulse procedure and chemo in 2017: Patient will follow up with providers in [place] to discuss additional monitoring in setting of progressive cirrhosis. # DM2: Will continue FSBG and ISS for strict glucose control in setting of infection. # Cirrhosis: Ammonia on repeat today after 3 doses of lactulose yesterday was decreased. Will return patient to BID dosing and encourage him to f/u with GI specialist. Child class C with score of 10. MELD 19 with 6.0% 3 month mortality. Meds: Lactulose 30ml BID Spironolactone 100mg daily Lasix 40mg daily # HTN: Not currently on medications. # HLD: Patient has not been taking atorvastatin, no recent lipids to calculate ASCVD. Will defer to PCM for additional management, however given history of HTN and DM, patient would likely benefit from starting atorvastatin. DISPOSITION: med/surg DIET: consistent carbohydrate DVT PROPHY: scds CONSULTS: physical therapy DISCHARGE: d/c to home anticipated on 12/02/2020 VS,Fishbone, I+O VS, Fishbone, I+O Laboratory Tests 11/30/20 05:34 Vital Signs Date Time Temp Pulse Resp B/P (MAP) Pulse Ox O2 Delivery O2 Flow Rate FiO2 11/30/20 06:00 97.3 77 20 96/57 (70) 97 Room Air I&O- Last 24 Hours up to 6 AM 11/30/20 06:00 Intake Total 1470 ml Balance 1470 ml ERIN OSORIO MD [facility] Nov 30, 2020 07:39
[2020-11-30 08:30] VITALS: BP 110/70
[2020-11-30] MEDS: OMEPRAZOLE 20 MG CAP PO SCH (09:43)
[2020-11-30] MEDS: DOCUSATE SODIUM 100MG CAPSULE PO SCH ×2 (09:43→20:36)
[2020-11-30] MEDS: VITAMIN D 1,000 INTERNATIONAL UNITS TABLET PO SCH (09:43)
[2020-11-30] MEDS: FUROSEMIDE 40 MG TAB PO SCH (09:43)
[2020-11-30] MEDS: ASPIRIN 81MG ENTERIC TABLET PO SCH (09:43)
[2020-11-30] MEDS: LACTULOSE 20 GM/30 ML SYRUP UD PO SCH ×2 (09:44→20:41)
[2020-11-30] MEDS: SPIRONOLACTONE 50 MG TAB PO SCH ×2 (09:45→20:41)
[2020-11-30 13:00] VITALS: BP 132/82
[2020-11-30] MEDS: cefTRIAXone SOD 2 GM in D5W MINI-BAG PLUS 50 ML IV SCH (15:19)
[2020-11-30 18:00] VITALS: BP 118/70
[2020-11-30] MEDS: ACETAMINOPHEN TAB 650MG DOSE (2X325MG) PO PRN (20:41)
[2020-11-30 22:00] VITALS: BP 108/70
[2020-12-01 02:00] VITALS: BP 110/69
[2020-12-01 06:00] VITALS: BP 116/70
[2020-12-01 06:23] LABS: HEMATOCRIT 34.8 % (42.0-52.0); HEMOGLOBIN 11.9 g/dl (13.5-17.5); MEAN CORPUSCULAR HGB CONC 34.2 g/dl (32.0-36.5); MEAN CORPUSCULAR VOLUME 96.4 fl (80.0-96.0); PLATELET COUNT, AUTOMATED 199 10^3/uL (150-450); RED BLOOD COUNT 3.61 10^6/uL (4.30-6.10); WHITE BLOOD COUNT 9.9 10^3/uL (4.0-10.0)
[2020-12-01 06:52] LABS: ALT/SGPT 30 U/L (12-78); BILIRUBIN,TOTAL 1.1 MG/DL (0.2-1.0); BLOOD UREA NITROGEN 14 MG/DL (7-18); CALCIUM LEVEL 7.8 MG/DL (8.8-10.2); CARBON DIOXIDE LEVEL 25 MEQ/L (21-32); CHLORIDE LEVEL 100 MEQ/L (98-107); CREATININE FOR GFR 0.97 MG/DL (0.70-1.30); GLOMERULAR FILTRATION RATE > 60.0 (>49); GLUCOSE, FASTING 89 MG/DL (70-100); MAGNESIUM LEVEL 2.2 MG/DL (1.8-2.4); SODIUM LEVEL 132 MEQ/L (136-145)
[2020-12-01] MEDS: HumaLOG INSULIN (NovoLOG) PER UNIT SC SCH ×4 (07:30→20:45)
[2020-12-01] MEDS: FUROSEMIDE 40 MG TAB PO SCH (08:25)
[2020-12-01] MEDS: LACTULOSE 20 GM/30 ML SYRUP UD PO SCH ×2 (08:25→20:46)
[2020-12-01] MEDS: SPIRONOLACTONE 50 MG TAB PO SCH ×2 (08:25→20:46)
[2020-12-01] MEDS: VITAMIN D 1,000 INTERNATIONAL UNITS TABLET PO SCH (08:26)
[2020-12-01] MEDS: OMEPRAZOLE 20 MG CAP PO SCH (08:26)
[2020-12-01] MEDS: DOCUSATE SODIUM 100MG CAPSULE PO SCH ×2 (08:26→20:46)
[2020-12-01] MEDS: ASPIRIN 81MG ENTERIC TABLET PO SCH (08:26)
[2020-12-01] MEDS: ACETAMINOPHEN TAB 650MG DOSE (2X325MG) PO PRN ×2 (08:26→20:46)
[2020-12-01 10:00] VITALS: BP 115/78
[2020-12-01 14:00] VITALS: BP 128/80
[2020-12-01] MEDS: cefTRIAXone SOD 2 GM in D5W MINI-BAG PLUS 50 ML IV SCH (14:20)
[2020-12-01 18:00] VITALS: BP 119/73
--- NOTE | 2020-12-01 19:18 | IPNPDOC ---
Date Seen The patient was seen on 12/01/20. Progress Note SUBJECTIVE: Patient reports feeling better, abdomen not as distended. Mild lower abdominal discomfort. Afebrile overnight. WBC 9.9 this AM. OBJECTIVE PHYSICAL EXAMINATION: VITAL SIGNS: Please see below. General: No acute distress, Alert, somewhat fatigue Eyes: Normal sclera, EOMI HENT: Atraumatic Cardiovascular: Normal rate, normal rhythm. Pulmonary: Clear to auscultation b/l, no wheezing GI: Soft, nontender, mildly distended with lower abdominal discomfort. No rebound tenderness. Skin: Warm and dry Neuro: CN grossly intact. No focal deficits. Strengths equal b/l. Psych: oriented x 3 LABORATORY DATA, IMAGING STUDIES, MICROBIOLOGY: Please see below. ASSESSMENT AND PLAN: 1. Ascites - WBC 150 on ascitic fluid, s/p paracentesis. - Culture and stain showed no organism. Improved on IV abx however. - Complete course of Abx for 5 days follow with transition to PO for ppx upon discharge. - c/w Rocephin. 2. Hx Pancreatic cancer - s/p pulse therapy and chemo in 2017. - f/u in [place] post discharge. 3. DM - ISS. 4. Cirrhosis - Elevated Ammonia. Ongoing lactulose treatment. - c/w spironolactone, lasix. 5. HTN - Not on medications. Monitor. BP stable. DVT ppx: SCD Code status: Full code. Anticipated discharge likely 12/03 if patient stable after off of IV abx. DISPOSITION: Home once medically stable. VS, I&O, 24H, [facility] Vital Signs/I&O Vital Signs Date Time Temp Pulse Resp B/P (MAP) Pulse Ox O2 Delivery O2 Flow Rate FiO2 12/01/20 18:00 96.2 97 16 119/73 (88) 98 Room Air I&O- Last 24 Hours up to 6 AM 12/01/20 06:00 Intake Total 760 ml Output Total 0 ml Balance 760 ml Laboratory Data 24H LABS Laboratory Tests 2 11/30/20 20:00: Bedside Glucose (Misc Panel) 213H 12/01/20 06:09: Nucleated Red Blood Cells % (auto) 0.0, Anion Gap 7L, Glomerular Filtration Rate > 60.0, Calcium Level 7.8L, Magnesium Level 2.2, Total Bilirubin 1.1H, Aspartate Amino Transf (AST/SGOT) 29, Alanine Aminotransferase (ALT/SGPT) 30, Alkaline Phosphatase 127H, Total Protein 5.0L, Albumin 2.0L, Albumin/Globulin Ratio 0.7 12/01/20 11:36: Bedside Glucose (Misc Panel) 126H 12/01/20 16:33: Bedside Glucose (Misc Panel) 94 CBC/BMP Laboratory Tests 12/01/20 06:09 Microbiology Microbiology 11/27/20 Acid Fast Stain, Received Pending 11/27/20 Mycobacterial Culture, Received Pending 11/27/20 Fungal Smear, Received Pending 11/27/20 Fungal Culture, Received Pending 11/27/20 Gram Stain - Final, Complete 11/27/20 Body Fluid Culture - Final, Complete 11/27/20 Anaerobic Culture - Final, Complete CARINA LIND MD Dec 01, 2020 19:18
[2020-12-01 22:00] VITALS: BP 116/75
[2020-12-02 02:00] VITALS: BP 113/73
[2020-12-02 06:00] VITALS: BP 101/59
[2020-12-02 06:34] LABS: HEMATOCRIT 35.9 % (42.0-52.0); MEAN CORPUSCULAR HEMOGLOBIN 32.6 pg (27.0-33.0); MEAN CORPUSCULAR HGB CONC 33.4 g/dl (32.0-36.5); MEAN CORPUSCULAR VOLUME 97.6 fl (80.0-96.0); PLATELET COUNT, AUTOMATED 208 10^3/uL (150-450); RED BLOOD COUNT 3.68 10^6/uL (4.30-6.10); WHITE BLOOD COUNT 10.3 10^3/uL (4.0-10.0)
[2020-12-02 07:19] LABS: ALT/SGPT 30 U/L (12-78); BILIRUBIN,TOTAL 1.3 MG/DL (0.2-1.0); BLOOD UREA NITROGEN 14 MG/DL (7-18); CALCIUM LEVEL 7.6 MG/DL (8.8-10.2); CARBON DIOXIDE LEVEL 27 MEQ/L (21-32); CHLORIDE LEVEL 99 MEQ/L (98-107); CREATININE FOR GFR 0.99 MG/DL (0.70-1.30); GLOMERULAR FILTRATION RATE > 60.0 (>49); GLUCOSE, FASTING 76 MG/DL (70-100); MAGNESIUM LEVEL 2.1 MG/DL (1.8-2.4); POTASSIUM SERUM 5.4 MEQ/L (3.5-5.1); SODIUM LEVEL 132 MEQ/L (136-145); TOTAL PROTEIN 4.9 GM/DL (6.4-8.2)
[2020-12-02] MEDS: HumaLOG INSULIN (NovoLOG) PER UNIT SC SCH ×4 (07:30→19:56)
[2020-12-02] MEDS: LACTULOSE 20 GM/30 ML SYRUP UD PO SCH ×2 (08:15→20:07)
[2020-12-02] MEDS: DOCUSATE SODIUM 100MG CAPSULE PO SCH ×2 (08:15→20:07)
[2020-12-02] MEDS: ASPIRIN 81MG ENTERIC TABLET PO SCH (08:15)
[2020-12-02] MEDS: VITAMIN D 1,000 INTERNATIONAL UNITS TABLET PO SCH (08:15)
[2020-12-02] MEDS: OMEPRAZOLE 20 MG CAP PO SCH (08:16)
[2020-12-02] MEDS: FUROSEMIDE 40 MG TAB PO SCH (08:16)
[2020-12-02] MEDS: SPIRONOLACTONE 50 MG TAB PO SCH ×2 (08:16→20:07)
[2020-12-02] MEDS: ACETAMINOPHEN TAB 650MG DOSE (2X325MG) PO PRN ×2 (08:17→20:08)
[2020-12-02 14:00] VITALS: BP 129/85
[2020-12-02] MEDS: cefTRIAXone SOD 2 GM in D5W MINI-BAG PLUS 50 ML IV SCH (14:50)
[2020-12-02 18:00] VITALS: BP 116/74
--- NOTE | 2020-12-02 19:21 | IPNPDOC ---
Date Seen The patient was seen on 12/02/20. Progress Note SUBJECTIVE: Patient reports feeling well. No significant abdominal discomfort. Afebrile overnight. WBC 10.3. Na 132, K 5.4. To complete last dose of IV this afternoon. OBJECTIVE PHYSICAL EXAMINATION: VITAL SIGNS: Please see below. General: No acute distress, Alert, somewhat fatigue Eyes: Normal sclera, EOMI HENT: Atraumatic Cardiovascular: Normal rate, normal rhythm. Pulmonary: Clear to auscultation b/l, no wheezing GI: Soft, nontender, mildly distended with lower abdominal discomfort. No rebound tenderness. Skin: Warm and dry Neuro: CN grossly intact. No focal deficits. Strengths equal b/l. Psych: oriented x 3 LABORATORY DATA, IMAGING STUDIES, MICROBIOLOGY: Please see below. ASSESSMENT AND PLAN: 1. Ascites - WBC 150 on ascitic fluid, s/p paracentesis. - Culture and stain showed no organism. Improved on IV abx however. - Complete course of Abx for 5 days follow with transition to PO for ppx upon discharge. - c/w Rocephin. 2. Hx Pancreatic cancer - s/p pulse therapy and chemo in 2017. - f/u in [place] post discharge. 3. DM - ISS. 4. Cirrhosis - Elevated Ammonia. Ongoing lactulose treatment. - c/w spironolactone, lasix. 5. HTN - Not on medications. Monitor. BP stable. DVT ppx: SCD Code status: Full code. Anticipated discharge likely 12/03 if patient stable after off of IV abx. DISPOSITION: Home once medically stable. VS, I&O, [facility]H, [facility] Vital Signs/I&O Vital Signs Date Time Temp Pulse Resp B/P (MAP) Pulse Ox O2 Delivery O2 Flow Rate FiO2 12/02/20 18:00 97.3 85 14 116/74 (88) 98 Room Air I&O- Last 24 Hours up to 6 AM 12/02/20 06:00 Intake Total 1610 ml Balance 1610 ml Laboratory Data 24H LABS Laboratory Tests 2 12/01/20 20:18: Bedside Glucose (Misc Panel) 202H 12/02/20 05:31: Nucleated Red Blood Cells % (auto) 0.0, Anion Gap 6L, Glomerular Filtration Rate > 60.0, Calcium Level 7.6L, Magnesium Level 2.1, Total Bilirubin 1.3H, Aspartate Amino Transf (AST/SGOT) 32, Alanine Aminotransferase (ALT/SGPT) 30, Alkaline Phosphatase 128H, Total Protein 4.9L, Albumin 2.0L, Albumin/Globulin Ratio 0.7 12/02/20 11:36: Bedside Glucose (Misc Panel) 101 12/02/20 16:32: Bedside Glucose (Misc Panel) 106 CBC/BMP Laboratory Tests 12/02/20 05:31 Microbiology Microbiology 11/27/20 Acid Fast Stain, Received Pending 11/27/20 Mycobacterial Culture, Received Pending 11/27/20 Fungal Smear, Received Pending 11/27/20 Fungal Culture, Received Pending 11/27/20 Gram Stain - Final, Complete 11/27/20 Body Fluid Culture - Final, Complete 11/27/20 Anaerobic Culture - Final, Complete CARINA LIND MD Dec 02, 2020 19:21
[2020-12-02 22:00] VITALS: BP 118/80
[2020-12-03 06:00] VITALS: BP 122/76
[2020-12-03 06:16] LABS: HEMATOCRIT 33.9 % (42.0-52.0); HEMOGLOBIN 11.7 g/dl (13.5-17.5); MEAN CORPUSCULAR HEMOGLOBIN 33.5 pg (27.0-33.0); MEAN CORPUSCULAR HGB CONC 34.5 g/dl (32.0-36.5); MEAN CORPUSCULAR VOLUME 97.1 fl (80.0-96.0); PLATELET COUNT, AUTOMATED 215 10^3/uL (150-450); RED BLOOD COUNT 3.49 10^6/uL (4.30-6.10); WHITE BLOOD COUNT 10.7 10^3/uL (4.0-10.0)
[2020-12-03 06:41] LABS: ALBUMIN 2.1 GM/DL (3.2-5.2); ALT/SGPT 29 U/L (12-78); BILIRUBIN,TOTAL 1.2 MG/DL (0.2-1.0); BLOOD UREA NITROGEN 15 MG/DL (7-18); CALCIUM LEVEL 7.7 MG/DL (8.8-10.2); CARBON DIOXIDE LEVEL 26 MEQ/L (21-32); CHLORIDE LEVEL 98 MEQ/L (98-107); CREATININE FOR GFR 1.01 MG/DL (0.70-1.30); GLOMERULAR FILTRATION RATE > 60.0 (>49); GLUCOSE, FASTING 80 MG/DL (70-100); SODIUM LEVEL 129 MEQ/L (136-145); TOTAL PROTEIN 4.8 GM/DL (6.4-8.2)
[2020-12-03] MEDS: HumaLOG INSULIN (NovoLOG) PER UNIT SC SCH ×2 (07:30→12:00)
[2020-12-03] MEDS: FUROSEMIDE 40 MG TAB PO SCH (08:53)
[2020-12-03] MEDS: ASPIRIN 81MG ENTERIC TABLET PO SCH (08:53)
[2020-12-03] MEDS: SPIRONOLACTONE 50 MG TAB PO SCH (08:53)
[2020-12-03] MEDS: VITAMIN D 1,000 INTERNATIONAL UNITS TABLET PO SCH (08:53)
[2020-12-03] MEDS: OMEPRAZOLE 20 MG CAP PO SCH (08:53)
[2020-12-03] MEDS: LACTULOSE 20 GM/30 ML SYRUP UD PO SCH (08:54)
[2020-12-03] MEDS: DOCUSATE SODIUM 100MG CAPSULE PO SCH (08:54)
[2020-12-03] MEDS ORDERED: BACTRIM 160MG/800MG DS TAB PO SCH (09:00)
[2020-12-03 10:00] VITALS: BP 114/73
[2020-12-03 14:00] VITALS: BP 114/72
[2020-12-03] MEDS ORDERED: BACTDSTA PO (14:39)
--- NOTE | 2020-12-03 19:13 | DS.PDOC ---
Discharge Summary General Date of Admission Nov 24, 2020 at 12:07 Date of Discharge 12/03/2020 Attending Physician: ERIN OSORIO MD [facility] Specialist/Consultants Involve: A Discharge Summary PROCEDURES PERFORMED DURING STAY: Paracentesis. ADMITTING DIAGNOSES: Hypotensive episode with possible syncope, concern for SIRS/Sepsis with intra abdominal source Recurrent ascites requiring Q10-14 day paracentesis with cirrhosis of unclear etiology History of pancreatic cancer s/o chemotherapy and in remission HTN not on BP medications Hyponatremia (chronic) DISCHARGE DIAGNOSES: Probable SBP started on prophylaxis Recurrent ascites with cirrhosis of unclear etiology; Child class C with score of 10. MELD 19 with 6.0% 3 month mortality. History of pancreatic cancer Hyperammonemia (resolved) HTN Hyponatremia (chronic) COMPLICATIONS/CHIEF COMPLAINT: Ascites,Orthostatic Hypotension,Syncope. HISTORY OF PRESENT ILLNESS: This is 65 years old pleasant gentleman with past medical history of CA pancreas status post pulse procedure in 2017, status post chemotherapy in 2017, hypertension, hyperlipidemia, BPH, type 2 diabetes mellitus, obesity, history of SVT suffered an episode of dizziness followed by fall. Patient was found hypotensive on the field and again he was found with orthostatic hypotension in ED and admitted with possible syncope. Patient responded very well to IV hydration in ED. Patient also complaining of generalized abdominal pain all over the abdomen since last few days, he receives paracentesis every 7 to 10 days and is scheduled again in the next few days. Generalized abdominal pain is associated with nausea but no vomiting no fever no chest pain or shortness of breath. HOSPITAL COURSE: Patient responded very well to initiation of abx and underwent paracentesis with 7.7L drained. Initial WBC of fluid was 150 and cultures were negative, however his initial presentation was most likely due to SBP and he was thus started on prophylaxis upon discharge. He did have transient elevation of serum ammonia and had increase in lactulose temporarily and no alteration in mental status. He remained pain free and afebrile and had improvement in his peripheral WBC during his hospitalization. He continued to have chronic baseline anemia and hyponatremia. He is encouraged to f/u with his PCM and GI providers upon discharge to discuss why he is developing cirrhosis and requiring recurrent paracenteses. On day of discharge he was ambulating independently and had no concerns. DISCHARGE MEDICATIONS: Please see below. ALLERGIES: Please see below. PHYSICAL EXAMINATION ON DISCHARGE: VITAL SIGNS: Please see below. GENERAL: HEENT: NECK: CARDIOVASCULAR EXAMINATION: RESPIRATORY EXAMINATION: ABDOMINAL EXAMINATION: EXTREMITIES: SKIN: NEUROLOGICAL EXAMINATION: PSYCHIATRIC EXAMINATION: LABORATORY DATA: Please see below. IMAGING: Paracentesis US: IMPRESSION: Ultrasound-guided paracentesis [id number] cc of yellow fluid. CT ABD: IMPRESSION: 1. Significant ascites noted throughout the abdomen and pelvis of uncertain etiology. Differential diagnosis includes cirrhosis as well as possible malignancy given the findings to suggest prior Whipple surgery and presumed pancreatic previous neoplasm. No obvious adenopathy or focal mass lesion identified. CT Head: IMPRESSION: Atrophy and microvascular ischemic changes. No acute intracranial hemorrhage, infarction, or mass/mass effect. CT C spine: IMPRESSION: Moderate multilevel degenerative changes. No evidence for acute pathology or trauma/injury. CXR: IMPRESSION: No acute cardiopulmonary process. PROGNOSIS: Fair ACTIVITY: [As tolerated]. DIET: Heart healthy DISCHARGE PLAN: Follow up with PCM within a week and GI within a month to discuss ongoing ev aluation for possible cancer recurrence. Contact IR if ascites develops again to the point of requiring paracentesis DISPOSITION: 01 Home, Self-Care. ITEMS TO FOLLOWUP ON ON OUTPATIENT: None DISCHARGE CONDITION: [Stable]. TIME SPENT ON DISCHARGE: 33 minutes. Vital Signs/I&Os Vital Signs Date Time Temp Pulse Resp B/P (MAP) Pulse Ox O2 Delivery O2 Flow Rate FiO2 12/03/20 14:00 97.5 86 16 114/72 (86) 98 Room Air I&O- Last 24 Hours up to 6 AM 12/03/20 06:00 Intake Total 1278 ml Balance 1278 ml Laboratory Data Labs 24H Laboratory Tests 2 12/02/20 19:54: Bedside Glucose (Misc Panel) 173H 12/03/20 05:53: Nucleated Red Blood Cells % (auto) 0.0, Anion Gap 5L, Glomerular Filtration Rate > 60.0, Calcium Level 7.7L, Magnesium Level 2.0, Total Bilirubin 1.2H, Aspartate Amino Transf (AST/SGOT) 32, Alanine Aminotransferase (ALT/SGPT) 29, Alkaline Phosphatase 129H, Total Protein 4.8L, Albumin 2.1L, Albumin/Globulin Ratio 0.8 12/03/20 11:52: Bedside Glucose (Misc Panel) 97 CBC/BMP Laboratory Tests 12/03/20 05:53 FSBS Laboratory Tests Test 12/02/20 19:54 12/03/20 11:52 Range/Units Bedside Glucose (Misc Panel) 173 97 80-115 MG/DL Microbiology Microbiology 11/27/20 Acid Fast Stain, Received Pending 11/27/20 Mycobacterial Culture, Received Pending 11/27/20 Fungal Smear, Received Pending 11/27/20 Fungal Culture, Received Pending 11/27/20 Gram Stain - Final, Complete 11/27/20 Body Fluid Culture - Final, Complete 11/27/20 Anaerobic Culture - Final, Complete Discharge Medications Scheduled Aspirin (Aspirin EC) 81 Mg Tablet.dr, 81 MG PO DAILY, (Reported) Cholecalciferol (Vitamin D3) (Vitamin D3) 1,000 Unit Tablet, 1,000 UNITS PO DAILY, (Reported) Furosemide (Furosemide) 40 Mg Tablet, 40 MG PO DAILY, (Reported) Lactulose (Constulose) 10 Gm/15 Ml Solution, 30 ML PO BID, (Reported) Omeprazole (Omeprazole) 20 Mg Capsule.dr, 20 MG PO DAILY, (Reported) Spironolactone (Spironolactone) 100 Mg Tablet, 100 MG PO BID, (Reported) Sulfamethoxazole/Trimethoprim (Sulfamethoxazole-Tmp Ds Tablet) 1 Each Tablet, 1 TAB PO DAILY Scheduled PRN Acetaminophen (Acetaminophen) 500 Mg Tablet, 1,000 MG PO Q6H PRN for PAIN LEVEL 1-5, (Reported) Lactulose (Lactulose) 10 Gm/15 Ml Solution, 30 ML PO DAILY PRN for CONSTIPATION, (Reported) Allergies Coded Allergies: No Known Allergies (Unverified , 01/08/18) ERIN OSORIO MD [facility] Dec 03, 2020 19:13
== END 2020-12-03 16:07 | disposition home or self-care (01) ==
LOC: M ED 07:18 → M ED INP 12:07 → ENRESERV 21:34 → M MSPAV 22:40
PROVIDERS: ADMIT Internal Medicine; ATTEND General Practice
PROC: 0W9G3ZZ Drainage of Peritoneal Cavity, Percutaneous Approach (ICD-10-PCS; principal; 2020-11-27 14:30)
DX: K74.60 Unspecified cirrhosis of liver (principal); K65.2 Spontaneous bacterial peritonitis; R18.8 Other ascites; E87.1 Hypo-osmolality and hyponatremia; I95.1 Orthostatic hypotension; I10 Essential (primary) hypertension; E78.5 Hyperlipidemia, unspecified; N40.0 Benign prostatic hyperplasia without lower urinary tract symptoms; E11.9 Type 2 diabetes mellitus without complications; R42 Dizziness and giddiness; E72.20 Disorder of urea cycle metabolism, unspecified; Z79.82 Long term (current) use of aspirin; Z85.07 Personal history of malignant neoplasm of pancreas; Z79.899 Other long term (current) drug therapy; Z86.010 Personal history of colon polyps; Z90.49 Acquired absence of other specified parts of digestive tract; Z20.822 Contact with and (suspected) exposure to COVID-19; Z92.21 Personal history of antineoplastic chemotherapy

== ENCOUNTER → 2020-12-04 | Outpatient (CLI) | payer BC ==
[~2020-12-04] MED LIST changes: +ACET500T15 PO; +ASPI81TA26 PO; +BACTDSTA PO; +CONS10SO3 PO; +D31000TA2 PO; +FURO40TA2 PO; +LACT20EL PO; +PROHANCE 279.3MG/ML 15ML VIAL As Ordered ONE; +SPIR100T3 PO
--- NOTE | 2020-12-05 09:19 | REP ---
INDICATION: CIRRHOSIS, MAL NEOPLASM OF PANCREASE. Previous Whipple procedure. COMPARISON: Comparison CT study abdomen and pelvis November 24, 2020.. TECHNIQUE: Axial and coronal T1 and T2 weighted sequences include spin echo, fast spin echo, diffusion, gradient echo, in and out of phase, and dynamically acquired sequential postcontrast images. Gadolinium enhancement dose is 15 mL of intravenous ProHance. FINDINGS: There is a large amount of diffuse abdominal ascites. The liver contour is somewhat macro nodular. No hepatic mass lesion is visible. Diffusion-weighted scans show no evidence of restricted diffusion focally in the abdomen or retroperitoneum to suggest malignant adenopathy. The spleen is upper normal in size homogeneous in texture, 13.0 cm in greatest dimension. Dynamically acquired sequential postcontrast images show no suspicious focal enhancement in the liver. Liver texture has a mottled appearance. Small stable left adrenal adenoma again seen. No right adrenal mass is observed. No renal mass is seen. Postcontrast and precontrast images demonstrate venous collaterals in the celiac axis region and left upper quadrant. There is a 7 x 13 mm lymph node in the small bowel mesenteric root. This is seen on CT. This is borderline in size. No other evidence of adenopathy. IMPRESSION: Cirrhosis with large amount of ascites. Stable left adrenal nodule. Borderline sized small bowel mesenteric root lymph node, 7 x 13 mm. No hepatic mass lesion seen. <Electronically signed by Darvin Childress > 12/05/20 [id number]
== END ==
LOC: M RAD 16:41
PROVIDERS: ATTEND Internal Medicine Gastroenterology
DX: R93.3 Abnormal findings on diagnostic imaging of other parts of digestive tract (principal); C25.9 Malignant neoplasm of pancreas, unspecified; K74.69 Other cirrhosis of liver
CPT/HCPCS: 74183; A9576

== ENCOUNTER → 2020-12-07 | Outpatient (CLI) | payer BC ==
[~2020-12-07] MED LIST changes: +LIDOCAINE 1% MDV 20ML VIAL As Ordered ONE; -PROHANCE 279.3MG/ML 15ML VIAL As Ordered ONE
[2020-12-07 13:37] VITALS: BP 103/55
--- NOTE | 2020-12-08 08:02 | REP ---
INDICATION: ASCITES. COMPARISON: None. TECHNIQUE: The procedure was performed under the direct supervision of Dr. Childress. The risks and benefits of the procedure were explained to the patient and informed consent was obtained. The largest pocket of fluid was localized in the left flank using ultrasound guidance. The skin was prepped and draped in a sterile fashion. 7 mL of 1% lidocaine was used as a local anesthetic. An 8-Nepali multi side-hole catheter was inserted using trocar technique.8300 mL of yellow fluid was withdrawn and discarded. Estimated blood loss: Less than 1 mL The patient tolerated the procedure well and there were no immediate complications. After the appropriate amount of monitored convalescence, the patient was discharged from the department. FINDINGS: None IMPRESSION: Ultrasound-guided paracentesis [id number] mL of yellow fluid. <Electronically signed by David Peter > 12/07/20 [id number] <Electronically signed by Darvin Childress > 12/08/20 [id number]
== END ==
LOC: M IRPRO 12:25
PROVIDERS: ATTEND Internal Medicine Gastroenterology
DX: R18.8 Other ascites (principal)

== ENCOUNTER 2020-12-14 21:28 | Inpatient (IN) | payer BC ==
[~2020-12-14] VITALS: Ht 177.8 cm; Wt 70.3 kg
[~2020-12-14 21:28] MED LIST changes: -LIDOCAINE 1% MDV 20ML VIAL As Ordered ONE
[2020-12-14] MEDS ORDERED: RA N1TAB PO (21:38)
[2020-12-14] MEDS ORDERED: NS 500 ML IV ONE (23:40)
[2020-12-15 00:09] LABS: ABG BASE EXCESS -2.3 (-2.0-2.0); ABG HCO3 19.9 MEQ/L (22.0-26.0); ABG O2 SATURATION 96.8 % (95.0-99.0); ABG PARTIAL PRESSURE CO2 26.7 mmHg (35.0-45.0); ABG PARTIAL PRESSURE O2 89.6 mmHg (75.0-100.0); ABG STANDARD HCO3 22.6 MEQ/L (22.0-26.0); ABG TOTAL CO2 20.7 MEQ/L (23.0-31.0)
[2020-12-15 00:17] LABS: BASO # 0.1 10^3/uL (0.0-0.2); BASO % 0.3 % (0.0-1.0); EOS % 0.2 % (0.0-3.0); HEMATOCRIT 31.6 % (42.0-52.0); HEMOGLOBIN 11.1 g/dl (13.5-17.5); LYMPH # 0.4 10^3/uL (1.5-5.0); LYMPH % 2.6 % (24.0-44.0); MEAN CORPUSCULAR HEMOGLOBIN 33.6 pg (27.0-33.0); MEAN CORPUSCULAR HGB CONC 35.1 g/dl (32.0-36.5); MEAN CORPUSCULAR VOLUME 95.8 fl (80.0-96.0); MONO # 1.4 10^3/uL (0.0-0.8); MONO % 8.4 % (2.0-8.0); NEUTROPHILS # 14.5 10^3/uL (1.5-8.5); NEUTROPHILS % 87.8 % (36.0-66.0); PLATELET COUNT, AUTOMATED 126 10^3/uL (150-450); WHITE BLOOD COUNT 16.5 10^3/uL (4.0-10.0)
[2020-12-15 00:27] LABS: RSV AMPLIFICATION NEGATIVE (NEGATIVE)
--- NOTE | 2020-12-15 00:36 | REPVR ---
PROCEDURE INFORMATION: Exam: XR Chest Exam date and time: 12/14/2020 11:24 PM Age: 65 years old Clinical indication: Other: Sepsis/ shock; Additional info: Sepsis/shock TECHNIQUE: Imaging protocol: XR of the chest. Views: 1 view. COMPARISON: CR Chest, 2 view PA, Lat 11/24/2020 7:31 AM FINDINGS: Lungs: No consolidation. Pleural spaces: Unremarkable. No pleural effusion. No pneumothorax. Heart/Mediastinum: Stable cardiac silhouette without cardiomegaly. Vasculature: Elongation of the thoracic aorta with calcification. Diaphragm: Elevation of the right hemidiaphragm. Bones/joints: Osteopenia. There are degenerative changes involving the shoulders and spine. IMPRESSION: No acute cardiopulmonary process. Electronically signed by: Obdulio Jones On 12/15/2020 00:35:59 AM
[2020-12-15] MEDS ORDERED: ONDANSETRON 4MG/2ML VIAL IV ONE (01:05)
[2020-12-15 01:17] LABS: ALBUMIN 2.4 GM/DL (3.2-5.2); BILIRUBIN,DIRECT 0.8 MG/DL (0.0-0.2); C REACTIVE PROTEIN QUANTITATIV 0.37 MG/DL (0.00-0.30); CREATININE FOR GFR 1.99 MG/DL (0.70-1.30); GLOMERULAR FILTRATION RATE 36.3 (>49)
[2020-12-15 01:17] LABS: INR 1.13
[2020-12-15 01:18] LABS: PARTIAL THROMBOPLASTIN TIME 29.5 SECONDS (25.9-37.0)
[2020-12-15] MEDS ORDERED: NS 500 ML IV ONE (01:40)
--- NOTE | 2020-12-15 02:10 | REPVR ---
PROCEDURE INFORMATION: Exam: CT Abdomen And Pelvis Without Contrast Exam date and time: 12/15/2020 1:36 AM Age: 65 years old Clinical indication: Pain and condition or disease; Cancer; Pancreas; Abdominal pain; Generalized; Prior surgery; Surgery date: 6+ months; Surgery type: Whipple TECHNIQUE: Imaging protocol: Computed tomography of the abdomen and pelvis without contrast. Radiation optimization: All CT scans at this facility use at least one of these dose optimization techniques: automated exposure control; mA and/or kV adjustment per patient size (includes targeted exams where dose is matched to clinical indication); or iterative reconstruction. COMPARISON: MRI ABD W/O FOL WITH 12/04/2020 7:58 PM FINDINGS: Lungs: Mild bibasilar dependent change. Liver: Hepatic cirrhosis. Gallbladder and bile ducts: Previous cholecystectomy. There is mild pneumobilia. Pancreas: Previous partial pancreatectomy. Spleen: Normal. No splenomegaly. Adrenal glands: Nonspecific thickening involving the left adrenal gland. Kidneys and ureters: Normal. No hydronephrosis. Stomach and bowel: There is gastric postoperative change. There is moderate colonic fecal retention. Appendix: No evidence of appendicitis. Intraperitoneal space: Large volume of ascites. Vasculature: Vascular calcification. Lymph nodes: Unremarkable. No enlarged lymph nodes. Urinary bladder: Unremarkable as visualized. Reproductive: Unremarkable as visualized. Bones/joints: There are degenerative changes involving the spine. Grade 1 anterolisthesis of L5 on S1 secondary to bilateral L5 pars defects. Soft tissues: Bilateral fat containing inguinal hernias. IMPRESSION: 1. Hepatic cirrhosis with large volume of ascites which limits sensitivity for superimposed acute inflammatory change. 2. No definite acute abnormality to the degree visualized. 3. Non emergent findings as above. Electronically signed by: Obdulio Jones On 12/15/2020 02:09:37 AM
[2020-12-15 02:26] LABS: APPEARANCE, URINE HAZY (CLEAR); BACTERIA, URINE AUTO NEGATIVE (NEGATIVE); BILIRUBIN, URINE AUTO NEGATIVE (NEGATIVE); BLOOD, URINE BLOOD NEGATIVE (NEGATIVE); COLOR, URINE AMBER (YELLOW); GLUCOSE, URINE (UA) AUTO NEGATIVE (NEGATIVE); KETONE, URINE AUTO NEGATIVE (NEGATIVE); LEUKOCYTE ESTERASE, URINE AUTO NEGATIVE (NEGATIVE); MUCUS, URINE SMALL (NEGATIVE); NITRITE, URINE AUTO NEGATIVE (NEGATIVE); PROTEIN, URINE AUTO NEGATIVE (NEGATIVE); RBC, URINE AUTO 2 /HPF (0-3); SPECIFIC GRAVITY URINE AUTO 1.013 (1.002-1.035); SQUAMOUS EPITHELIAL CELL UR AU 0 /HPF (0-6); TRANSITIONAL EPITHELIAL AUTO <1 /HPF; WBC, URINE AUTO 3 /HPF (0-3)
[2020-12-15] MEDS ORDERED: CEFOTAXIME SOD 2 GM in D5W MINI-BAG PLUS 50 ML IV SCH (04:50)
[2020-12-15] MEDS ORDERED: BACT800T5 PO (05:16)
[2020-12-15] MEDS ORDERED: MAGN400T2 PO (05:16)
[2020-12-15] MEDS ORDERED: HOME MED LIST COMPLETE! XX SCH (05:20)
--- NOTE | 2020-12-15 05:37 | HPEPDOC ---
General Date of Admission 12/15/20 Date of Service: Dec 15, 2020 Primary Care Physician: KVNG CAMPA D.O. Attending Physician: JENNA STARKEY MD Chief Complaint The patient is a 65-year-old male admitted with a reason for visit of General Medical Issues. Source: Patient, Family Exam Limitations: No limitations () History of Present Illness Massimo Glez is a 65-year-old white male with past medical history of pancreatic cancer status partial pancreatectomy and chemo 2017, hypertension, HDL, BPH, obesity, SVT, recurrent ascites with hepatic cirrhosis who presents to ER with abdominal pain. Patient and at bedside; very pleasant couple. Patient reports that he has been at baseline from when he was discharged on December 03 until yesterday he noticed he had an episode of dry heaving sensation and then as he reports today "went downhill". Patient endorses basic deconditioning since August when his ascites first started; he describes need for paracentesis every 10 to 14 days. Patient reports that he sees Dr. Galindo with GI, however tomorrow he was to see a liver specialist in [place]. Patient reports that he was admitted November 24 through the for paracentesis and concern of SBP and has been compliant with the medications he was discharged with. Since yesterday, patient endorses chills, mild cough and 4 out of 10 abdominal pressure generalized. Of note, patient did report a fall a few days ago - witnessed when he attempted to help move a dresser and it fell on him; in which he sustained a right upper extremity injury that removed skin almost like us shearing from his arm. He then reports that he had swelling of bilateral hands however this receded to his current presentation today. Initial lab work reveals leukocytosis, lactic acidosis, ammonia 75, elevated creatinine. UA nonacute. Chest x-ray nonacute. CT abdomen pelvis shows hepatic cirrhosis and moderate to large amount of ascites which makes it difficult for an inflammatory review; but otherwise nonacute. Patient will be admitted for further evaluation and management of presenting concerns. Home Medications Scheduled Aspirin (Aspirin EC) 81 Mg Tablet., 81 MG PO DAILY, (Reported) Cholecalciferol (Vitamin D3) (Vitamin D3) 1,000 Unit Tablet, 1,000 UNITS PO DAILY, (Reported) Furosemide (Furosemide) 40 Mg Tablet, 40 MG PO BID, (Reported) Lactulose (Constulose) 10 Gm/15 Ml Solution, 30 ML PO TID, (Reported) MORNING/DINNER/BEDTIME Magnesium Oxide (Magnesium Oxide) 400 Mg Tablet, 400 MG PO BID, (Reported) Omeprazole (Omeprazole) 20 Mg Capsule.dr, 20 MG PO DAILY, (Reported) Spironolactone (Spironolactone) 100 Mg Tablet, 100 MG PO BID, (Reported) Sulfamethoxazole/Trimethoprim (Bactrim Ds Tablet) 1 Each Tablet, 1 TAB PO DAILY, (Reported) Allergies Coded Allergies: No Known Allergies (Unverified , 01/08/18) Past Medical History Medical History Hypertension, pancreatic cancer, HDL, BPH, and IDDM, obesity, history of SVT, sigmoid polyps and tubular adenomas, internal hemorrhoids, cirrhosis Surgical History Cholecystectomy, cyst removal, right knee repair, Whipple procedure [address] [facility] Family History Significant Family History: No pertinent family hx Social History * Smoker: former Smoker (Quit 30 years ago) Alcohol: Denies (None since 2017) Recent Travel/Sick Contacts: Denies: Recent travel, Recent sick contacts Psychosocial History: No pertinent psych hx Patient lives with at home. A-FIB/CHADSVASC A-FIB History Current/History of A-Fib/PAF?: No Current PO Anticoag Therapy: No Review of Systems Constitutional: Reports: Chills, Weakness, Fatigue; Denies: Fever, Night Sweats Eyes: Denies: Pain, Vision change ENT: Denies: Head Aches, Ear Pain, Dysphagia Skin: Denies: Rash, Lesions, Breakdown Pulmonary: Reports: Cough; Denies: Dyspnea Cardiovascular: Denies: Chest Pain, Palpitations, Orthopnea, Paroxysmal Noc. Dyspnea, Lt Headedness Gastrointestinal: Reports: Nausea, Abdominal Pain, Diarrhea Genitourinary: Denies: Dysuria, Frequency, Incontinence, Retention Hematologic: Denies: Bruising, Bleeding Excessively Musculoskeletal: Denies: Neck Pain, Back Pain, Joint Pain, Muscle Pain, Spasms Neurological: Denies: Weakness, Numbness, Change in speech, Confusion Psych: Reports: Mood Normal; Denies: Depression, Memory Issues Physical Examination General Exam: Positive: Alert, No Acute Distress, Other (Somewhat jaundiced coloration) Eye Exam: Positive: PERRLA, Conjunctiva & lids normal, EOMI; Negative: Sclera icteric ENT Exam: Positive: Atraumatic, Mucous membr. moist/pink, Pharynx Normal Neck Exam: Positive: Supple; Negative: JVD, thyromegaly Chest Exam: Positive: Diminished Heart Exam: Positive: Rate Normal, Regular Rhythm, Normal S1, Normal S2; Negative: Murmurs, Rubs Telemetry: Positive: No significant arrhythmia Abdomen Exam: Positive: Normal bowel sounds, Soft; Negative: Tenderness, Hepatospenomegaly Extremity Exam: Positive: Edema (1+), Normal pulses; Negative: Clubbing, Cyanosis Skin Exam: Positive: Other skin issue (Right upper extremity skin tear) Neuro Exam: Positive: Normal Gait, Normal Speech, Cranial Nerves 3-12 NL, Reflexes 2+ Psych Exam: Positive: Mental status NL, Mood NL, Oriented x 3 Vital Signs Vital Signs Date Time Temp Pulse Resp B/P (MAP) Pulse Ox O2 Delivery O2 Flow Rate FiO2 12/15/20 00:43 98 95 12/14/20 23:45 12/14/20 21:28 99.4 20 Room Air Laboratory Data Labs 24H Laboratory Tests 2 12/14/20 23:19: Coronavirus (COVID-19)(PCR) NEGATIVE, Influenza Type A (RT-PCR) NEGATIVE, Influenza Type B (RT-PCR) NEGATIVE, Respiratory Syncytial Virus (PCR) NEGATIVE 12/14/20 23:40: Blood Gas Bicarbonate Standard 22.6, Arterial Blood pH 7.490H, Arterial Blood Partial Pressure CO2 26.7L, Arterial Blood Partial Pressure O2 89.6, Arterial Blood Total CO2 20.7L, Arterial Blood HCO3 19.9L, Arterial Blood Base Excess - 2.3L, Arterial Blood Oxygen Saturation 96.8 12/15/20 00:09: Immature Granulocyte % (Auto) 0.7, Neutrophils (%) (Auto) 87.8H, Lymphocytes (%) (Auto) 2.6L, Monocytes (%) (Auto) 8.4H, Eosinophils (%) (Auto) 0.2, Basophils (%) (Auto) 0.3, Neutrophils # (Auto) 14.5H, Lymphocytes # (Auto) 0.4L, Monocytes # (Auto) 1.4H, Eosinophils # (Auto) 0.0, Basophils # (Auto) 0.1, Nucleated Red Blood Cells % (auto) 0.0 12/15/20 00:37: Prothrombin Time 15.0H, Prothromb Time International Ratio 1.13, Activated Partial Thromboplast Time 29.5, Lactic Acid Level 2.7*H, Ammonia 75H 12/15/20 00:38: Anion Gap 8, Glomerular Filtration Rate 36.3L, Calcium Level 8.0L, Total Bili alston 2.0H, Direct Bilirubin 0.8H, Aspartate Amino Transf (AST/SGOT) 44H, Alanine Aminotransferase (ALT/SGPT) 40, Alkaline Phosphatase 160H, C-Reactive Protein, Quantitative 0.37H, Total Protein 5.0L, Albumin 2.4L, Albumin/Globulin Ratio 0.9, Amylase Level 26, Lipase 10L 12/15/20 02:14: Urine Color DAO, Urine Appearance HAZY, Urine pH 5.0, Urine Specific [place] 1.013, Urine Protein NEGATIVE, Urine Glucose (Auto)(UA) NEGATIVE, Urine Ketones (Auto) NEGATIVE, Urine Blood NEGATIVE, Urine Nitrite NEGATIVE, Urine Bilirubin NEGATIVE, Urine Urobilinogen 2.0H, Urine Leukocyte Esterase (Auto) NEGATIVE, Urine WBC (Auto) 3, Urine RBC (Auto) 2, Urine Hyaline Casts (Auto) 37, Urine Bacteria (Auto) NEGATIVE, Urine Squamous Epithelial Cells 0, Urine Transitional Epithelial Cells <1, Urine Mucus (Auto) SMALL, Urine Sperm (Auto) CBC/BMP Laboratory Tests 12/15/20 00:09 12/15/20 00:38 Microbiology Microbiology 12/15/20 Urine Culture, Received Pending 12/15/20 Blood Culture, Received Pending 12/14/20 Blood Culture, Received Pending RAD Interpretation STUDY: CXR Rad Actions: Report Reviewed (Nonacute) STUDY: CT abdomen pelvis Rad Actions: Report Reviewed Assessment/Plan 1. Sepsis secondary to possible SBP: In setting of patient with cirrhosis and frequent paracentesis. -Monitor patient, monitor for signs symptoms worsening infection. -N.p.o. and plan for paracentesis today with fluid sample collection. -Will start empiric coverage cefotaxime. -Symptom management/supportive care with antiemetics and pain control as needed. -Patient Child-Forbes Class C, adjust medications as indicated. -A.m. labs consider differential -He does have a significant history of pancreatic cancer and Whipple procedure in 2017; given the possible long-term complications relative post chemo and surgery encourage follow-up with GI and [place] liver specialist. 2. Hyponatremia with KAILEE: In setting of reported hemolyzed sample. This may be erroneous but patient also has been on Bactrim outpatient. Patient had baseline creatinine 1 last admission and today 1.99. Sodium 130, mild. Monitor patient consider additional hydration and recheck labs. Renally adjust medications and avoid nephrotoxins. 3. Anemia: Stable to last admission. Monitor for overt bleeding. A.m. labs. 4. Hyperammonemia: Patient very appropriate during exam. Continue lactulose and monitor patient. 5. Right upper extremity wound: Monitor, keep clean, site care. Consider s pecialty wound care consult. 6. Deconditioning patient with chronic disease: Anticipate physical therapy once patient stable/mobile post tap tomorrow. DVT: SCDs Code: Full, will be patient's proxy if he is incapacitated per patient Dispo: Home once clinically stable Plan / VTE VTE Prophylaxis Ordered?: Yes MAXINE MONTES NP Dec 15, 2020 05:19
--- NOTE | 2020-12-15 05:56 | ECGEPIP ---
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
[2020-12-15] MEDS: cefTRIAXone SOD 2 GM in D5W MINI-BAG PLUS 50 ML IV SCH (08:14)
[2020-12-15] MEDS: OMEPRAZOLE 20 MG CAP PO SCH (08:14)
[2020-12-15] MEDS: LACTULOSE 20 GM/30 ML SYRUP UD PO SCH ×3 (08:14→20:53)
[2020-12-15] MEDS: ASPIRIN 81MG ENTERIC TABLET PO SCH (08:19)
[2020-12-15] MEDS: VITAMIN D 1,000 INTERNATIONAL UNITS TABLET PO SCH (08:24)
[2020-12-15 13:07] LABS: SPEC. GRAVITY BODY FLUIDS 1.008 (NOT ESTABLISHED)
[2020-12-15 13:17] LABS: APPEARANCE, BODY FLUID CLOUDY (CLEAR); ASCITES FL COLOR YELLOW (COLORLESS); SOURCE, BODY FLUID ASCITES
[2020-12-15 13:20] VITALS: BP 103/56
[2020-12-15 13:33] LABS: SOURCE, BODY FLUID ALBUMIN ASCITES; SOURCE, BODY FLUID GLUCOSE ASCITES; SOURCE, BODY FLUID TOT PROTEIN ASCITES; TOTAL PROTEIN, BODY FLUID 0.5 G/DL (NOT ESTABLISHED)
[2020-12-15 16:35] VITALS: BP 90/55
--- NOTE | 2020-12-15 16:57 | REP ---
INDICATION: Suspected SBP. COMPARISON: None. TECHNIQUE: The procedure was performed under the direct supervision of Dr. Kern. The risks and benefits of the procedure were explained to the patient and informed consent was obtained. The largest pocket of fluid was localized in the right flank using ultrasound guidance. The skin was prepped and draped in a sterile fashion. 6 mL of 1% lidocaine was used as a local anesthetic. An 8-Brazilian multi side-hole catheter was inserted using trocar technique.4650 mL of saul colored fluid was withdrawn with a sample sent to the lab for analysis. Estimated blood loss: Less than 1 mL The patient tolerated the procedure well and there were no immediate complications. After the appropriate amount of monitored convalescence, the patient was discharged from the department. FINDINGS: None IMPRESSION: Ultrasound-guided paracentesis [id number] mL of saul colored fluid. <Electronically signed by David Peter > 12/15/20 [id number] <Electronically signed by Eleno Kern > 12/15/20 1333
[2020-12-15] MEDS: FUROSEMIDE 40 MG TAB PO SCH (17:00)
[2020-12-15 18:01] VITALS: BP 101/58
[2020-12-15] MEDS: SPIRONOLACTONE 50 MG TAB PO SCH (18:10)
[2020-12-15 20:00] VITALS: BP 102/56
[2020-12-16] VITALS: BP 102/62
[2020-12-16 04:00] VITALS: BP 104/59
[2020-12-16 06:12] LABS: BASO # 0.1 10^3/uL (0.0-0.2); BASO % 0.9 % (0.0-1.0); EOS # 0.2 10^3/uL (0.0-0.5); EOS % 2.9 % (0.0-3.0); HEMATOCRIT 32.3 % (42.0-52.0); HEMOGLOBIN 10.9 g/dl (13.5-17.5); LYMPH # 1.1 10^3/uL (1.5-5.0); LYMPH % 13.9 % (24.0-44.0); MEAN CORPUSCULAR HEMOGLOBIN 32.9 pg (27.0-33.0); MEAN CORPUSCULAR HGB CONC 33.7 g/dl (32.0-36.5); MEAN CORPUSCULAR VOLUME 97.6 fl (80.0-96.0); MONO # 0.7 10^3/uL (0.0-0.8); MONO % 8.5 % (2.0-8.0); NEUTROPHILS # 5.8 10^3/uL (1.5-8.5); NEUTROPHILS % 73.4 % (36.0-66.0); PLATELET COUNT, AUTOMATED 111 10^3/uL (150-450); RED BLOOD COUNT 3.31 10^6/uL (4.30-6.10); WHITE BLOOD COUNT 7.9 10^3/uL (4.0-10.0)
[2020-12-16 06:33] LABS: BILIRUBIN,TOTAL 1.1 MG/DL (0.2-1.0); CALCIUM LEVEL 7.6 MG/DL (8.8-10.2); CREATININE FOR GFR 1.72 MG/DL (0.70-1.30); TOTAL PROTEIN 4.6 GM/DL (6.4-8.2)
[2020-12-16 07:52] VITALS: BP 109/66
[2020-12-16] MEDS: ASPIRIN 81MG ENTERIC TABLET PO SCH (08:16)
[2020-12-16] MEDS: SPIRONOLACTONE 50 MG TAB PO SCH (08:16)
[2020-12-16] MEDS: FUROSEMIDE 40 MG TAB PO SCH (08:16)
[2020-12-16] MEDS: LACTULOSE 20 GM/30 ML SYRUP UD PO SCH (08:16)
[2020-12-16] MEDS: cefTRIAXone SOD 2 GM in D5W MINI-BAG PLUS 50 ML IV SCH (08:16)
[2020-12-16] MEDS: OMEPRAZOLE 20 MG CAP PO SCH (08:16)
[2020-12-16] MEDS: VITAMIN D 1,000 INTERNATIONAL UNITS TABLET PO SCH (08:16)
[2020-12-16] MEDS ORDERED: SLF 3 ML SYR IV PRN (10:00)
--- NOTE | 2020-12-16 12:54 | DS.PDOC ---
Discharge Summary General Date of Admission Dec 14, 2020 at 21:29 Date of Discharge 12/16/2020 Discharge Summary PROCEDURES PERFORMED DURING STAY: paracentesis DISCHARGE DIAGNOSES: #pancreatic CA/s/p Whipples 2017 [facility] #HTN #HDL #BPH #IDDM #obesity #liver cirrhosis COMPLICATIONS/CHIEF COMPLAINT: Sbo, Sepsis. HISTORY OF PRESENT ILLNESS: As per records: Massimo Glez is a 65-year-old white male with past medical history of pancreatic cancer status partial pancreatectomy and chemo 2017, hypertension, HDL, BPH, obesity, SVT, recurrent ascites with hepatic cirrhosis who presents to ER with abdominal pain. Patient and at bedside; very pleasant couple. Patient reports that he has been at baseline from when he was discharged on December 03 until yesterday he noticed he had an episode of dry heaving sensation and then as he reports today "went downhill". Patient endorses basic deconditioning since August when his ascites first started; he describes need for paracentesis every 10 to 14 days. Patient reports that he sees Dr. Galindo with GI, however tomorrow he was to see a liver specialist in [place]. Patient reports that he was admitted November 24 through the for paracentesis and concern of SBP and has been compliant with the medications he was discharged with. Since yesterday, patient endorses chills, mild cough and 4 out of 10 abdominal pressure generalized. Of note, patient did report a fall a few days ago - witnessed when he attempted to help move a dresser and it fell on him; in which he sustained a right upper extremity injury that removed skin almost like us shearing from his arm. He then reports that he had swelling of bilateral hands however this receded to his current presentation today. Initial lab work reveals leukocytosis, lactic acidosis, ammonia 75, elevated creatinine. UA nonacute. Chest x-ray nonacute. CT abdomen pelvis shows hepatic cirrhosis and moderate to large amount of ascites which makes it difficult for an inflammatory review; but otherwise nonacute. Patient will be admitted for further evaluation and management of presenting concerns. HOSPITAL COURSE: Patient was admitted for further evaluation and treatment. He underwent paracen tesis fluid analysis did not reveal any suspicion for infection. Case was discussed with gastroenterology. Patient was deemed stable for discharge with outpatient follow-up. Recommendations were for peritoneal biopsy given his frequent rapid reaccumulation of fluid with concerns for peritoneal carci nomatosis. Patient preferred to do this procedure as an outpatient. DISCHARGE MEDICATIONS: Please see below. ALLERGIES: Please see below. PHYSICAL EXAMINATION ON DISCHARGE: VITAL SIGNS: Please see below. General: NAD, lying comfortably in bed, mild jaundice HEENT: NC/AT, EOMI Lungs: CTA B/L Heart: +S1S2, RRR Abd: soft, NT, +BS Ext: no edema Neuro: no gross focal deficits Psych: AAOx3 LABORATORY DATA: Please see below. ACTIVITY: [As tolerated]. DISPOSITION: Discharge home. DISCHARGE INSTRUCTIONS: 1. Follow up PCP in 3-5 days 2. Recommend peritoneal biopsy 3. Follow up GI as scheduled DISCHARGE CONDITION: [Stable]. TIME SPENT ON DISCHARGE: 35 minutes. Vital Signs/I&Os Vital Signs Date Time Temp Pulse Resp B/P (MAP) Pulse Ox O2 Delivery O2 Flow Rate FiO2 12/16/20 07:52 99.2 108 18 109/66 (80) 95 Room Air I&O- Last 24 Hours up to 6 AM 12/16/20 06:00 Intake Total 500 ml Output Total 0 ml Balance 500 ml Laboratory Data Labs 24H Laboratory Tests 2 12/16/20 05:46: Immature Granulocyte % (Auto) 0.4, Neutrophils (%) (Auto) 73.4H, Lymphocytes (%) (Auto) 13.9L, Monocytes (%) (Auto) 8.5H, Eosinophils (%) (Auto) 2.9, Basophils (%) (Auto) 0.9, Neutrophils # (Auto) 5.8, Lymphocytes # (Auto) 1.1L, Monocytes # (Auto) 0.7, Eosinophils # (Auto) 0.2, Basophils # (Auto) 0.1, Nucleated Red Blood Cells % (auto) 0.0, Anion Gap 6L, Glomerular Filtration Rate 43.0L, Calcium Level 7.6L, Total Bilirubin 1.1H, Aspartate Amino Transf (AST/SGOT) 37, Alanine Aminotransferase (ALT/SGPT) 36, Alkaline Phosphatase 146H, Ammonia 26, Total Protein 4.6L, Albumin 2.0L, Albumin/Globulin Ratio 0.8 CBC/BMP Laboratory Tests 12/16/20 05:46 Microbiology Microbiology 12/15/20 Acid Fast Stain, Received Pending 12/15/20 Mycobacterial Culture, Received Pending 12/15/20 Fungal Smear, Received Pending 12/15/20 Fungal Culture, Received Pending 12/15/20 Gram Stain - Final, Resulted 12/15/20 Body Fluid Culture, Resulted Pending 12/15/20 Urine Culture, Received Pending 12/15/20 Blood Culture - Preliminary, Resulted No growth after 24 hours . All specim... 12/14/20 Blood Culture - Preliminary, Resulted No growth after 24 hours . All specim... Discharge Medications Scheduled Aspirin (Aspirin EC) 81 Mg Tablet.dr, 81 MG PO DAILY, (Reported) Cholecalciferol (Vitamin D3) (Vitamin D3) 1,000 Unit Tablet, 1,000 UNITS PO DAILY, (Reported) Furosemide (Furosemide) 40 Mg Tablet, 40 MG PO BID, (Reported) Lactulose (Constulose) 10 Gm/15 Ml Solution, 30 ML PO TID, (Reported) MORNING/DINNER/BEDTIME Magnesium Oxide (Magnesium Oxide) 400 Mg Tablet, 400 MG PO BID, (Reported) Omeprazole (Omeprazole) 20 Mg Capsule.dr, 20 MG PO DAILY, (Reported) Spironolactone (Spironolactone) 100 Mg Tablet, 100 MG PO BID, (Reported) Sulfamethoxazole/Trimethoprim (Bactrim Ds Tablet) 1 Each Tablet, 1 TAB PO DAILY, (Reported) Allergies Coded Allergies: No Known Allergies (Unverified , 01/08/18) LADY GONZALES MD Dec 16, 2020 12:54
[2020-12-16] MEDS ORDERED: SLF 3 ML SYR IV SCH (14:00)
== END 2020-12-16 16:16 | disposition home or self-care (01) | DRG 251 ==
LOC: M ED 21:28 → M ED INP 21:29 → ENRESERV 12-15 10:00 → M PCU 12-15 13:17
PROVIDERS: ADMIT Family Medicine; ATTEND Internal Medicine
PROC: 0W9G3ZZ Drainage of Peritoneal Cavity, Percutaneous Approach (ICD-10-PCS; principal; 2020-12-15 12:00)
DX: R10.84 Generalized abdominal pain (principal); R18.8 Other ascites; E72.20 Disorder of urea cycle metabolism, unspecified; E87.1 Hypo-osmolality and hyponatremia; K74.60 Unspecified cirrhosis of liver; D64.9 Anemia, unspecified; Z85.07 Personal history of malignant neoplasm of pancreas; Z92.21 Personal history of antineoplastic chemotherapy; I10 Essential (primary) hypertension; E78.5 Hyperlipidemia, unspecified; N40.0 Benign prostatic hyperplasia without lower urinary tract symptoms; Z20.822 Contact with and (suspected) exposure to COVID-19; Z79.82 Long term (current) use of aspirin; Z79.899 Other long term (current) drug therapy; Z86.010 Personal history of colon polyps; K64.8 Other hemorrhoids; Z90.49 Acquired absence of other specified parts of digestive tract; Z87.891 Personal history of nicotine dependence

== ENCOUNTER → 2020-12-28 | Outpatient (CLI) | payer BC ==
[~2020-12-28] MED LIST changes: +BACT800T5 PO; +LIDOCAINE 1% MDV 20ML VIAL As Ordered ONE; +MAGN400T2 PO; +RA N1TAB PO; +ceFAZolin 2 GM/D5W 50 ML IV BAG (J0690 PER 500MG) As Ordered ONE
[2020-12-28 13:07] VITALS: BP 106/55
--- NOTE | 2020-12-28 15:27 | REP ---
INDICATION: ASCITES. COMPARISON: None. TECHNIQUE: The procedure was performed under the direct supervision of Dr. Childress. The risks and benefits of the procedure were explained to the patient and informed consent was obtained. The largest pocket of fluid was localized in the right flank using ultrasound guidance. The skin was prepped and draped in a sterile fashion. 6 mL of 1% lidocaine was used as a local anesthetic. An 8-Scottish multi side-hole catheter was inserted using trocar technique.7600 mL of saul fluid was withdrawn with a sample sent to the lab for analysis. Estimated blood loss: Less than 1 mm The patient tolerated the procedure well and there were no immediate complications. After the appropriate amount of monitored convalescence, the patient was discharged from the department. FINDINGS: None IMPRESSION: Ultrasound-guided paracentesis [id number] mL of saul fluid. <Electronically signed by David Peter > 12/28/20 1430 <Electronically signed by Darvin Childress > 12/28/20 [id number]
== END ==
LOC: M IRPRO 12:07
PROVIDERS: ATTEND Internal Medicine Gastroenterology
DX: R18.8 Other ascites (principal); K74.60 Unspecified cirrhosis of liver; K75.81 Nonalcoholic steatohepatitis (NASH)
CPT/HCPCS: 49083; 87070; 87075; 87205; J0690

== ENCOUNTER 2020-12-30 16:13 | Inpatient (IN) | payer BC ==
[~2020-12-30] VITALS: Ht 172.7 cm; Wt 75.4 kg
[~2020-12-30 16:13] MED LIST changes: -LIDOCAINE 1% MDV 20ML VIAL As Ordered ONE; -ceFAZolin 2 GM/D5W 50 ML IV BAG (J0690 PER 500MG) As Ordered ONE
[2020-12-30 17:08] LABS: BASO % 0.2 % (0.0-1.0); EOS % 0.1 % (0.0-3.0); HEMATOCRIT 37.7 % (42.0-52.0); HEMOGLOBIN 12.9 g/dl (13.5-17.5); LYMPH # 0.4 10^3/uL (1.5-5.0); LYMPH % 2.1 % (24.0-44.0); MEAN CORPUSCULAR HEMOGLOBIN 32.2 pg (27.0-33.0); MEAN CORPUSCULAR HGB CONC 34.2 g/dl (32.0-36.5); MONO # 1.2 10^3/uL (0.0-0.8); MONO % 6.4 % (2.0-8.0); NEUTROPHILS # 16.6 10^3/uL (1.5-8.5); NEUTROPHILS % 90.4 % (36.0-66.0); PLATELET COUNT, AUTOMATED 172 10^3/uL (150-450); RED BLOOD COUNT 4.01 10^6/uL (4.30-6.10); WHITE BLOOD COUNT 18.4 10^3/uL (4.0-10.0)
--- NOTE | 2020-12-30 17:22 | REP ---
INDICATION: DYSPNEA/COUGH. COMPARISON: 12/14/2020. TECHNIQUE: Single portable AP view of the chest was performed. FINDINGS: There is chronic mild elevation of the right hemidiaphragm and blunting of the right costophrenic angle. There is no acute infiltrate. The heart is not enlarged. The mediastinal silhouette is unchanged. There are degenerative changes of the spine. IMPRESSION: No acute pulmonary disease. <Electronically signed by Eleno Kern > 12/30/20 [id number]
[2020-12-30 17:47] LABS: ALBUMIN 2.4 GM/DL (3.2-5.2); ALT/SGPT 57 U/L (12-78); BILIRUBIN,DIRECT 0.5 MG/DL (0.0-0.2); BILIRUBIN,TOTAL 1.1 MG/DL (0.2-1.0); BLOOD UREA NITROGEN 21 MG/DL (7-18); CALCIUM LEVEL 7.9 MG/DL (8.8-10.2); CARBON DIOXIDE LEVEL 20 MEQ/L (21-32); CHLORIDE LEVEL 95 MEQ/L (98-107); CK-MB VALUE MASS 1.6 NG/ML (<3.6); CPK CREATINE PHOSPHOKINASE 52 U/L (39-308); CREATININE FOR GFR 2.03 MG/DL (0.70-1.30); GLOMERULAR FILTRATION RATE 35.5 (>49); GLUCOSE, FASTING 106 MG/DL (70-100); MB/CK RELATIVE INDEX 3.08 (< OR =4); POTASSIUM SERUM 6.8 MEQ/L (3.5-5.1); SODIUM LEVEL 123 MEQ/L (136-145); TOTAL PROTEIN 5.8 GM/DL (6.4-8.2); TROPONIN I < 0.02 NG/ML (< 0.10)
[2020-12-30] MEDS: NS 1,000 ML IV ONE ×2 (18:05→19:11)
[2020-12-30] MEDS ORDERED: ONDANSETRON 4MG/2ML VIAL IV ONE (18:10)
[2020-12-30 18:19] LABS: INR 1.15; PROTHROMBIN TIME 15.2 SECONDS (12.7-14.5)
[2020-12-30] MEDS ORDERED: CEFEPIME HCL 2 GM in D5W MINI-BAG PLUS 50 ML IV ONE (18:25)
[2020-12-30] MEDS ORDERED: NS 2,140 ML in IV 1 EA IV ONE (18:25)
[2020-12-30] MEDS ORDERED: HOME MED LIST COMPLETE! XX SCH (18:50)
--- NOTE | 2020-12-30 19:07 | REPVR ---
PROCEDURE INFORMATION: Exam: CT Abdomen And Pelvis Without Contrast Exam date and time: 12/30/2020 6:30 PM Age: 65 years old Clinical indication: Other: Sepsis TECHNIQUE: Imaging protocol: Computed tomography of the abdomen and pelvis without contrast. Radiation optimization: All CT scans at this facility use at least one of these dose optimization techniques: automated exposure control; mA and/or kV adjustment per patient size (includes targeted exams where dose is matched to clinical indication); or iterative reconstruction. COMPARISON: CT ABD PELVIS W/O CONTRAST 12/15/2020 1:47 AM FINDINGS: Liver: Examination of the liver demonstrates a lobular surface contour, and enlargement of the left and caudate lobes, findings consistent with cirrhosis. Gallbladder and bile ducts: There has been a cholecystectomy. Pneumobilia is demonstrated likely related to prior sphincterotomy. Pancreas: There is diffuse pancreatic atrophy and fatty replacement. Streaky increased density demonstrated in the peripancreatic fat, findings which may indicate the presence of pancreatitis. Spleen: Normal. No splenomegaly. Adrenal glands: There is a focal hypodense mass in the left adrenal gland measuring 2.1 cm., consistent in appearance and density with a benign adrenal adenoma. Kidneys and ureters: Normal. No hydronephrosis. Stomach and bowel: This patient is status post gastric bypass surgery. Appendix: No evidence of appendicitis. Intraperitoneal space: There is a moderate amount of free intraperitoneal fluid present. Vasculature: The aortoiliac vessels demonstrate mild atherosclerotic calcification. Lymph nodes: Unremarkable. No enlarged lymph nodes. Urinary bladder: Unremarkable as visualized. Reproductive: Unremarkable as visualized. Bones/joints: Mild central spinal stenosis L3-L4. There is a grade 2 anterior spondylolisthesis of L5 on S1 secondary to bilateral L5 spondylolysis. Soft tissues: There is soft tissue edema demonstrated in the abdominal wall, flanks and buttock regions consistent with anasarca. Bilateral inguinal hernias without incarceration. IMPRESSION: 1. Mild central spinal stenosis L3-L4. There is a grade 2 anterior spondylolisthesis of L5 on S1 secondary to bilateral L5 spondylolysis. 2. Anasarca. 3. There has been a cholecystectomy. 4. Examination of the liver demonstrates a lobular surface contour, and enlargement of the left and caudate lobes, findings consistent with cirrhosis. 5. There is a moderate amount of free intraperitoneal fluid present. 6. This patient is status post gastric bypass surgery. 7. There is diffuse pancreatic atrophy and fatty replacement. Streaky increased density demonstrated in the peripancreatic fat, findings which may indicate the presence of pancreatitis. 8. There is a focal hypodense mass in the left adrenal gland measuring 2.1 cm., consistent in appearance and density with a benign adrenal adenoma. 9. Findings not substantially changed in comparison to the prior study of 12/15/2020. Electronically signed by: Sylvester Stevenson On 12/30/2020 19:06:24 PM
--- NOTE | 2020-12-30 19:09 | REPVR ---
PROCEDURE INFORMATION: Exam: CT Chest Without Contrast; Diagnostic Exam date and time: 12/30/2020 6:30 PM Age: 65 years old Clinical indication: Other: Sepsis TECHNIQUE: Imaging protocol: Diagnostic computed tomography of the chest without contrast. Radiation optimization: All CT scans at this facility use at least one of these dose optimization techniques: automated exposure control; mA and/or kV adjustment per patient size (includes targeted exams where dose is matched to clinical indication); or iterative reconstruction. COMPARISON: CR PORTABLE CHEST X-RAY 12/14/2020 11:15 PM FINDINGS: Lungs: Minimal centrilobular emphysematous changes in the upper lung zones. Lungs otherwise clear. Pleural spaces: Unremarkable. No pneumothorax. No pleural effusion. Heart: There is mild atherosclerotic calcification of the coronary arteries. Aorta: Unremarkable. No aortic aneurysm. Lymph nodes: Multiple small mediastinal lymph nodes likely postinflammatory. Bones/joints: The spine demonstrates mild degenerative changes. Soft tissues: Unremarkable. IMPRESSION: 1. Multiple small mediastinal lymph nodes likely postinflammatory. 2. No acute pulmonary parenchymal infiltrates. 3. Mild emphysematous changes. Electronically signed by: Sylvester Stevenson On 12/30/2020 19:09:30 PM
[2020-12-30] MEDS ORDERED: MAALOX 30 ML SUSP *UDC PO PRN (19:30)
[2020-12-30] MEDS ORDERED: ACETAMINOPHEN TAB 650MG DOSE (2X325MG) PO PRN (19:30)
[2020-12-30] MEDS ORDERED: MOM 30ML SUSPENSION UDC PO PRN (19:30)
[2020-12-30 19:37] LABS: RSV AMPLIFICATION NEGATIVE (NEGATIVE)
[2020-12-30 19:43] LABS: LIPASE < 10 U/L (73-393)
[2020-12-30] MEDS ORDERED: MIDODRINE 2.5 MG TAB PO ONE (19:50)
--- NOTE | 2020-12-30 20:11 | HPEPDOC ---
[facility] Medical History & Physical Date of Admission Dec 30, 2020 Date of Service: Dec 30, 2020 Attending Physician: MARÍA ELENA SCOTT MD History and Physical CHIEF COMPLAINT: [65 y/o male c/o n/v x1 day] HISTORY OF PRESENT ILLNESS: [This is a 65 y/o male with a pmh of hld, htn, pe, pancreatic ca s/p whipple, cirrhosis, bph, dm2 who presents to our ED on 12/30 with a cc of nausea and vomiting that began earlier that day. Patient states that his symptoms began this morning and were severe in nature. Patient states that he vomited several times and is now simply dry heaving. Patient states that currently he is experiencing lower abdominal discomfort but states that this did not begin until after he began retching. Patient admits to associated decreased appetite, but states that this has been ongoing for several weeks. Patient also endorses diarrhea, but states that this has been going on for quite some time. Patient states that his diarrhea is labile, but typically will have 3-5 bm's per day. Patient does not believe there is blood in it. Patient admits to associated rigors, abdominal distention despite recent paracentesis on 12/28, lower leg edema, sob worse with movement, fatigue. Patient, at the time of my exam, denies chest pain, syncope, paresthesias, confusion, dysuria, sick contacts. ] PAST MEDICAL HISTORY: 1. [See HPI PAST SURGICAL HISTORY: 1. [Colonoscopy with polypectomy]. 2. [Whipple procedure]. 3. [Unspec. right knee surgery]. SOCIAL HISTORY: Tobacco use:[Former] ETOH: [Former] Illicit drug use: [Denies] FAMILY HISTORY: Reviewed - none pertinent ALLERGIES: Please see below. REVIEW OF SYSTEMS: CONSTITUTIONAL: [See HPI]. HEENT: [Denies uri type sx]. CARDIOVASCULAR: [See HPI]. RESPIRATORY: [See HPI]. GASTROINTESTINAL: [See HPI]. GENITOURINARY: [Denies dysuria]. SKIN: [Denies rash]. MUSCULOSKELETAL: [Denies acute joint/back pain]. NEUROLOGICAL: [Denies syncope, paresthesias]. ENDOCRINE: [Hx of DM]. HEMATOLOGIC/LYMPHATIC: [Hx of pancreatic ca]. HOME MEDICATIONS: Please see below. PHYSICAL EXAMINATION: VITAL SIGNS: Please see below. GENERAL APPEARANCE: [Acutely ill appearing 65 y/o male. Patient does not appear to be in any respiratory distress.]. HEENT: [No mass or lesion. EOMI. No scleral icterus. Nares patent. oral mucosa dry.]. CARDIOVASCULAR: [Regular rate, rhythm. no murmurs, rubs, gallops]. LUNGS: [Good air flow b/l, scattered crackles]. ABDOMEN: [Distended, soft, nontender]. MUSCULOSKELETAL: [No joint deformity]. EXTREMITIES: [Pitting edema noted to b/ lower extremities to the calves. No overlying skin changes. Pulses intact.]. NEUROLOGICAL: [Speech clear. A+Ox3. No focal deficits]. PSYCHIATRIC: [Mood and affect appear appropriate.]. LABORATORY DATA: See below. IMAGING: [CXR: FINDINGS: There is chronic mild elevation of the right hemidiaphragm and blunting of the right costophrenic angle. There is no acute infiltrate. The heart is not enlarged. The mediastinal silhouette is unchanged. There are degenerative changes of the spine. IMPRESSION: No acute pulmonary disease. Chest CT: FINDINGS: Liver: Examination of the liver demonstrates a lobular surface contour, and enlargement of the left and caudate lobes, findings consistent with cirrhosis. Gallbladder and bile ducts: There has been a cholecystectomy. Pneumobilia is demonstrated likely related to prior sphincterotomy. Pancreas: There is diffuse pancreatic atrophy and fatty replacement. Streaky increased density demonstrated in the peripancreatic fat, findings which may indicate the presence of pancreatitis. Spleen: Normal. No splenomegaly. Adrenal glands: There is a focal hypodense mass in the left adrenal gland measuring 2.1 cm., consistent in appearance and density with a benign adrenal adenoma. Kidneys and ureters: Normal. No hydronephrosis. Stomach and bowel: This patient is status post gastric bypass surgery. Appendix: No evidence of appendicitis. Intraperitoneal space: There is a moderate amount of free intraperitoneal fluid present. Vasculature: The aortoiliac vessels demonstrate mild atherosclerotic calcification. Lymph nodes: Unremarkable. No enlarged lymph nodes. Urinary bladder: Unremarkable as visualized. Reproductive: Unremarkable as visualized. Bones/joints: Mild central spinal stenosis L3-L4. There is a grade 2 anterior spondylolisthesis of L5 on S1 secondary to bilateral L5 spondylolysis. Soft tissues: There is soft tissue edema demonstrated in the abdominal wall, flanks and buttock regions consistent with anasarca. Bilateral inguinal hernias without incarceration. IMPRESSION: 1. Mild central spinal stenosis L3-L4. There is a grade 2 anterior spondylolisthesis of L5 on S1 secondary to bilateral L5 spondylolysis. 2. Anasarca. 3. There has been a cholecystectomy. 4. Examination of the liver demonstrates a lobular surface contour, and enlargement of the left and caudate lobes, findings consistent with cirrhosis. 5. There is a moderate amount of free intraperitoneal fluid present. 6. This patient is status post gastric bypass surgery. 7. There is diffuse pancreatic atrophy and fatty replacement. Streaky increased density demonstrated in the peripancreatic fat, findings which may indicate the presence of pancreatitis. 8. There is a focal hypodense mass in the left adrenal gland measuring 2.1 cm., consistent in appearance and density with a benign adrenal adenoma. 9. Findings not substantially changed in comparison to the prior study of 12/15/2020. Chest CT: FINDINGS: Lungs: Minimal centrilobular emphysematous changes in the upper lung zones. Lungs otherwise clear. Pleural spaces: Unremarkable. No pneumothorax. No pleural effusion. Heart: There is mild atherosclerotic calcification of the coronary arteries. Aorta: Unremarkable. No aortic aneurysm. Lymph nodes: Multiple small mediastinal lymph nodes likely postinflammatory. Bones/joints: The spine demonstrates mild degenerative changes. Soft tissues: Unremarkable. IMPRESSION: 1. Multiple small mediastinal lymph nodes likely postinflammatory. 2. No acute pulmonary parenchymal infiltrates. 3. Mild emphysematous changes. ] MICROBIOLOGY: Please see below. ASSESSMENT: [This is a 65 y/o male with a pmh of hld, htn, pe, pancreatic ca s/p whipple, cirrhosis, bph, dm2 who presents to our ED on 12/30 with a cc of nausea and vomiting that began earlier that day. Patient met sepsis criteria in the ed with leukocytosis of 18.4, lactic acid of 3.6, tachycardia in the low 100s and hypotension with map floating in the low 60s-high 50s. Of note, patient had potassium of 6.8, sodium of 123, cr of 2 from baseline of 1.1 Discussed code status with patient and , who is [employer], patient would like to be FULL CODE.]. . PLAN: 1. [Sepsis - Unknown source at this time - Imaging and workup in the ED so far grossly negative for infection source - Blood cultures sent, ua pending - Patient received 30cc/kg fluid bolus as well as cefepime in the ED - will continue cefepime on the floor - admit to pcu w tele for tx 2. Hypotension - Secondary to fluid loss, liver cirrhosis - Will give albumin replacement - Will begin midodrine 2.5 bid - may need uptitration - Will monitor closely 3. N/V - Gastroenteritis vs. pancreatic ca recurrence - zofran for nausea - gi panel sent - fluid replacement as stated 4. Diarrhea - Likely pancreatic insufficiency. Patient had whipple procedure and current lipase is undetectable by our lab reads - will begin creon with meals at this time - patients lab abnormalities and dehydration may be d/t maldigestion and fluid loss 2/2 pancreatic insufficiency 5. Hyperkalemia - patient's K read at 6.5 in the ED - kayexalate, insulin/dextrose, calcium gluconate given - will repeat and monitor - patient to be placed on tele 6. KAILEE - potentially hepatorenal syndrome vs. congestive - patient being given albumin replacement - ua pending - holding at home lasix for now - will avoid nephrotoxic agents - will repeat 7. Liver cirrhosis - Patient currently has moderate clinical ascites despite recent paracentesis - day team can consider IR consult for paracentesis - ammonia level normal in the ED - continue lactulose tid - continue spironolactone 8. GERD - continue omeprazole DVT prophylaxis - heparin]. Vital Signs Vital Signs Date Time Temp Pulse Resp B/P (MAP) Pulse Ox O2 Delivery O2 Flow Rate FiO2 12/30/20 19:08 101 22 80/45 (57) 95 Room Air 12/30/20 16:13 97.9 Laboratory Data Labs 24H Laboratory Tests 2 12/30/20 16:58: Immature Granulocyte % (Auto) 0.8, Neutrophils (%) (Auto) 90.4H, Lymphocytes (%) (Auto) 2.1L, Monocytes (%) (Auto) 6.4, Eosinophils (%) (Auto) 0.1, Basophils (%) (Auto) 0.2, Neutrophils # (Auto) 16.6H, Lymphocytes # (Auto) 0.4L, Monocytes # (Auto) 1.2H, Eosinophils # (Auto) 0.0, Basophils # (Auto) 0.0, Nucleated Red Blood Cells % (auto) 0.0, Anion Gap 8, Glomerular Filtration Rate 35.5L, Calcium Level 7.9L, Total Bilirubin 1.1H, Direct Bilirubin 0.5H, Aspartate Amino Transf (AST/SGOT) 67H, Alanine Aminotransferase (ALT/SGPT) 57, Alkaline Phosphatase 306H, Total Creatine Kinase 52, Creatine Kinase MB 1.6, Creatine Kinase MB Relative Index 3.08, Troponin I < 0.02, Total Protein 5.8L, Albumin 2.4L, Albumin/Globulin Ratio 0.7, Lipase < 10L 12/30/20 17:00: Lactic Acid Level 3.6*H 12/30/20 17:02: Ammonia 23 12/30/20 17:28: Prothrombin Time 15.2H, Prothromb Time International Ratio 1.15 12/30/20 18:16: Coronavirus (COVID-19)(PCR) NEGATIVE, Influenza Type A (RT-PCR) NEGATIVE, Influenza Type B (RT-PCR) NEGATIVE, Respiratory Syncytial Virus (PCR) NEGATIVE CBC/BMP Laboratory Tests 12/30/20 16:58 Home Medications Scheduled Aspirin (Aspirin EC) 81 Mg Tablet.dr, 81 MG PO DAILY Cholecalciferol (Vitamin D3) (Vitamin D3) 1,000 Unit Tablet, 1,000 UNITS PO DAILY Furosemide (Furosemide) 40 Mg Tablet, 40 MG PO BID Lactulose (Constulose) 10 Gm/15 Ml Solution, 30 ML PO TID MORNING/DINNER/BEDTIME Magnesium Oxide (Magnesium Oxide) 400 Mg Tablet, 400 MG PO BID Omeprazole (Omeprazole) 20 Mg Capsule.dr, 20 MG PO DAILY Spironolactone (Spironolactone) 100 Mg Tablet, 100 MG PO BID Sulfamethoxazole/Trimethoprim (Bactrim Ds Tablet) 1 Each Tablet, 1 TAB PO DAILY Allergies Coded Allergies: No Known Allergies (Unverified , 01/08/18) A-FIB/CHADSVASC A-FIB History Current/History of A-Fib/PAF?: No Attending Note Attending Note time of service 850pm Mr. Glez is a 65 yr old w a hx of Chronic HFpEF, HTN, pancreatic cancer managed with whipple in 2017 & chemo, liver cirrhosis with ascites requiring f requent paracentesis, DLP, MERLINE, SVT and remote hx of DM2 who presented w c/o dizziness, non-bloody emesis, non-bloody diarrhea, and difficulty walking. His physical exam was remarkable for lethargy, slim extremities, distended abdomen, ecchymosis on extremities. EKG SR w a rate of [address] changes He will be admitted for: -Septic Shock -possible 2/2 SBP -Hyperkalemia - KAILEE (hepatorenal?) - n/v/d possibly due to gastroenteritis Plan: agree with IVF, abx octreotide, albumin and midodrine / f/u GI panel & ventura cultures / we will ask the day time team to consult IR for paracentesis. Rest per KARAN Lucero's H&P LATE ENTRY 130 After arrival on PCU despite IVF, midodrine and octreotide, abx the patient's MAP was still below 70. He hasn't produced any urine. We will transfer him to ICU to start Levophed. Place a faria, switch him to Zosyn & consult for a line and co-management. We will also ask the day time team to consider consulting the [employer] metal bonder. KATIE LUCERO Dec 30, 2020 20:11 MARÍA ELENA SCOTT MD Dec 31, 2020 01:19
[2020-12-30] MEDS ORDERED: SOD POLYSTYRENE SULFONATE SUSP 15 GM/60 ML UD PO ONE (20:15)
[2020-12-30] MEDS ORDERED: ONDANSETRON 4MG/2ML VIAL IV PRN (20:15)
[2020-12-30] MEDS ORDERED: DEXTROSE 50% 50 ML SYRINGE IV STA (20:23)
[2020-12-30] MEDS ORDERED: ALBUTEROL SULFATE 2.5 MG/0.5 ML INH NEB SOLN NEB SCH (20:25)
[2020-12-30 20:36] LABS: INR 1.19; PARTIAL THROMBOPLASTIN TIME 36.4 SECONDS (25.9-37.0); PROTHROMBIN TIME 15.5 SECONDS (12.7-14.5)
--- NOTE | 2020-12-30 20:37 | ECGEPIP ---
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
[2020-12-30 20:50] VITALS: BP 70/35
[2020-12-30] MEDS ORDERED: CALCIUM GLUCONATE 1,000 MG in D5W MINI-BAG PLUS 100 ML IV ONE (21:00)
[2020-12-30] MEDS ORDERED: SPIRONOLACTONE 50 MG TAB PO SCH (21:00)
[2020-12-30 21:05] VITALS: BP 85/47
[2020-12-30 21:56] VITALS: BP 88/49
[2020-12-30] MEDS ORDERED: OCTREOTIDE ACETATE 1,200 MCG in NS 238.8 ML IV SCH (22:00)
[2020-12-30 22:15] VITALS: BP 96/54
[2020-12-30] MEDS: LACTULOSE 20 GM/30 ML SYRUP UD PO SCH (22:42)
[2020-12-30] MEDS: MAGNESIUM OXIDE 400MG TAB (MAG-OX) PO SCH (22:44)
[2020-12-30 23:45] VITALS: BP 80/50
[2020-12-31] VITALS (55 sets, daily range): BP systolic 79–125; BP diastolic 49–67
[2020-12-31] MEDS ORDERED: NOREPINEPHRINE BITARTRATE 8 MG in D5W 500 ML IV SCH (01:25)
[2020-12-31] MEDS ORDERED: NOREPINEPHRINE BITARTRATE 16 MG in D5W 484 ML IV SCH ×2 (03:00→07:14)
[2020-12-31] MEDS: PIPERACILLIN/TAZOBACTAM SOD 3.375 GM in D5W MINI-BAG PLUS 50 ML IV SCH ×4 (03:24→19:42)
--- NOTE | 2020-12-31 03:31 | ROOPDOC ---
[facility] Report Of Operation Report of Operation DATE OF PROCEDURE: 12/31/20 PROCEDURE PERFORMED: Left internal jugular central venous catheter insertion. PREPROCEDURE DIAGNOSES: Distributed shock. POSTPROCEDURE DIAGNOSES: Distributive shock. SURGEON: Dr. Christoph MD ANESTHESIA: Local 1% lidocaine. ESTIMATED BLOOD LOSS: Approximately 1 mL. COMPLICATIONS: None. Procedure consent obtained from: Patient written consent DESCRIPTION OF PROCEDURE: A time out was performed. My hands were washed immediately prior to the procedure. I wore a surgical cap, mask with protective eyewear, full gown and sterile gloves throughout the procedure. The patient was placed in Trendelenburg position. LEFT neck region was prepped using chlorhexidine scrub and draped in sterile fashion using a full drape and sterile probe cover and sterile gel emp loyed. The medial and lateral heads of the sternocleidomastoid muscle were identified as was the carotid pulse. The Internal Jugular vein was identified using the ultrasound. Anesthesia was achieved over the vein using 1% lidocaine. Using real-time out of plane guidance, the introducer needle was inserted into the Internal Jugular vein under direct ultrasound visualization. Venous blood was withdrawn. The syringe was removed and a guidewire was advanced into the introducer needle. The guidewire was visualized in the Internal Jugular Vein by ultrasound. A small incision was made at the skin surface with a scalpel and the introducer needle was exchanged for a dilator over the guidewire. After appropriate dilation was obtained, the dilator was exchanged over the wire for a triple lumen central venous catheter. The wire was removed and the catheter was sutured in place at 18 cm. A sterile sorbaview shield was placed over the catheter at the insertion site. The patient tolerated the procedure without any hemodynamic compromise. At time of procedure completion, all ports aspirated and flushed properly. Post-procedure chest x-ray is pending at this time. Estimated blood loss is 1cc. MARY RODRIGUEZ MD Dec 31, 2020 03:31
[2020-12-31 03:33] LABS: ALBUMIN 2.1 GM/DL (3.2-5.2); BILIRUBIN,TOTAL 1.6 MG/DL (0.2-1.0); CALCIUM LEVEL 7.2 MG/DL (8.8-10.2); CREATININE FOR GFR 2.17 MG/DL (0.70-1.30); GLOMERULAR FILTRATION RATE 32.9 (>49); POTASSIUM SERUM 5.9 MEQ/L (3.5-5.1); TOTAL PROTEIN 4.5 GM/DL (6.4-8.2)
--- NOTE | 2020-12-31 03:37 | ROOPDOC ---
[facility] Report Of Operation Report of Operation DATE OF PROCEDURE: 12/31/20 PREPROCEDURE DIAGNOSES: Ascites. POSTPROCEDURE DIAGNOSES: Ascites. PROCEDURE PERFORMED: Diagnostic paracentesis. SURGEON: Dr. Christoph MD ANESTHESIA: Local 1% lidocaine. ESTIMATED BLOOD LOSS: Approximately 0 mL. COMPLICATIONS: None. Procedure consent: Obtained from patient written consent DESCRIPTION OF PROCEDURE: A time-out was performed. My hands were washed immediately prior to the procedure. I wore a surgical cap, mask with protective eyewear, sterile gown and sterile gloves throughout the procedure. The area was cleansed and draped in usual sterile fashion using chlorhexidine scrub. Anesthesia was achieved with 1% lidocaine. The right side of the abdomen was prepped and draped in a sterile fashion using chlorhexidine scrub. 1% lidocaine was used to numb the skin, soft tissue and peritoneum. A 16-gauge needle and 50 mL syringe was used to advance into the peritoneal cavity until ascites fluid was aspirated. Approximately 100 mL of ascitic fluid was collected and sent for laboratory analysis. The needle was withdrawn. A bandaid was placed over the puncture wound. The patient tolerated the procedure well without any immediate complications. Estimated blood loss was minimal approximately 1 cc. MARY RODRIGUEZ MD Dec 31, 2020 03:37
--- NOTE | 2020-12-31 04:01 | CR.PDOC ---
General Date of Consultation: Dec 31, 2020 Referring Provider: MARÍA ELENA SCOTT MD Primary Care Physician: SHAYNE IGNACIO MD Attending Physician: MARÍA ELENA SCOTT MD Consultation REASON FOR CONSULTATION/CHIEF COMPLAINT: Distributive shock. HISTORY OF PRESENT ILLNESS: This is a 65-year-old gentleman with past medical history of pancreatic adenocarcinoma status post Whipple procedure 3 years ago, idiopathic cirrhosis currently in the process of getting worked up, BPH, diabetes, hypertension, hyperlipidemia presented to the hospital late yesterday with complaints of persistent nausea and vomiting. He has been experiencing symptom for 1 day. He cannot tolerate any oral intake up until today. He was able to tolerate chicken soup today. Associated symptoms also include dry heaving. He also experienced slight abdominal discomfort. Patient is known to this hospital as he care frequent paracentesis. Last night he had paracentesis was on 12/28/2020 in which he had 7.5 L of ascites fluid that was removed. He had never had history of esophageal varices, SBP, or decompensated liver cirrhosis. Upon admission to the hospital, patient was admitted for sepsis of unknown etiology with suspicion of SBP. He was started on broad-spectrum antibiotic with Zosyn. CT scan of the abdomen shows moderate amount of ascites fluid. CT of the chest showed no evidence of air bronchogram or infiltrate. Laboratory was remarkable for leukocytosis and new KAILEE with hyperkalemia. He received medical therapy for hyperkalemia. He was started on octreotide, midodrine, albumin, IV fluid infusion for possible hepatorenal syndrome. ICU was consulted as patient is in refractory hypotension. Other than resolution of his nausea and vomiting, patient denies of fever, chills, abdominal pain, diarrhea, chest pain, shortness of breath, cough. PAST MEDICAL HISTORY: pancreatic adenocarcinoma status post Whipple procedure 3 years ago, idiopathic cirrhosis currently in the process of getting worked up, BPH, diabetes, hypertension, hyperlipidemia PAST SURGICAL HISTORY: 1. Colonoscopy with polypectomy. 2. Whipple procedure. 3. Unspec. right knee surgery. SOCIAL HISTORY: Tobacco use:Former ETOH: Former Illicit drug use: Denies FAMILY HISTORY: Reviewed - none pertinent ALLERGIES: Please see below. HOME MEDICATIONS: Please see below. REVIEW OF SYSTEMS: CONSTITUTIONAL: Denies fever, chills, weight loss, night sweats. HEENT: Denies sore throat. CARDIOVASCULAR: Denies chest pain or palpitation. RESPIRATORY: Denies shortness of breath, hemoptysis, wheezing, cough. GENITOURINARY: Denies dysuria. MUSCULOSKELETAL: Denies myalgia arthralgia. GASTROINTESTINAL: Admits to nausea and vomiting. Also admits to mild diarrhea. Negative for blood in stool. Negative for abdominal pain or distention. SKIN: Negative for rash or bleeding. NEUROLOGICAL: Denies slurred speech or focal weakness. PSYCHIATRIC: Denies depression. ENDOCRINE: Denies weight change. HEMATOLOGIC/LYMPHATIC: Denies bleeding. ALLERGIC/IMMUNOLOGIC: Denies allergy. PHYSICAL EXAMINATION: VITAL SIGNS: Please see below. GENERAL APPEARANCE: Chronically ill-appearing. Alert and oriented x3 not in any acute distress. Conversing well. HEENT: Negative JVD or cervical adenopathy. RESPIRATORY: Clear to auscultation bilaterally with no evidence of wheezing, rhonchi, crackles. CARDIOVASCULAR: Regular rate rhythm with no evidence of murmur or extra heart sounds. ABDOMEN: Soft, distended with fluid shift. No evidence of organomegaly. Hyperactive bowel sounds EXTREMITIES: Negative for clubbing or pedal edema. NEUROLOGICAL: Gross neurological examination is intact. PSYCHIATRIC: Alert and oriented x3. LABORATORY DATA: Please see below. ASSESSMENT/PLAN: This is a 65-year-old gentleman with past medical history of pancreatic adenocarcinoma status post Whipple procedure 3 years ago, idiopathic cirrhosis currently in the process of getting worked up, BPH, diabetes, hypertension, hyperlipidemia presented to the hospital late yesterday with complaints of persistent nausea and vomiting. He was found to have a new profound KAILEE. Refractory hyperkalemia on admission. 1. Distributive shock. 2. KAILEE with differential of ATN versus prerenal azotemia versus hepatorenal syndrome 3. Hyperkalemia. 4. Ascites with history of liver cirrhosis 5. History is a pancreatic adenocarcinoma status post Whipple procedure 3 years ago Plan: -I believe the nature of his distributive shock is likely from hepatorenal failure as opposed to infectious etiology. Infectious work-up has been sent. Diagnostic paracentesis was performed and fluid was sent for analysis and culture. Continue with hemodynamic support to target MAP greater than 60 or systolic blood pressure greater than 90. Continue with Zosyn until blood culture and ascites fluid culture are finalized. -Recommend nephrology consultation for the KAILEE. This could be likely related to prerenal azotemia as patient has been having poor oral intake for the last 24 hours. He is making urine. Continue with Levophed, octreotide, midodrine, albumin 1 g/kg infusion for the next 24 hours. Continue monitor urine output. Check urinalysis. -Continue to monitor potassium. I anticipate it will downtrend as his kidney function improves. There is no urgent indication for dialysis at this point. Vital Signs/I&O Vital Signs Date Time Temp Pulse Resp B/P (MAP) Pulse Ox O2 Delivery O2 Flow Rate FiO2 12/31/20 02:45 93 90/52 (65) 98 Room Air 12/31/20 02:22 98.3 16 I&O- Last 24 Hours up to 6 AM 12/31/20 06:00 Intake Total 2300.0 ml Balance 2300.0 ml Laboratory Data Labs 24H Laboratory Tests 2 12/30/20 16:58: Immature Granulocyte % (Auto) 0.8, Neutrophils (%) (Auto) 90.4H, Lymphocytes (%) (Auto) 2.1L, Monocytes (%) (Auto) 6.4, Eosinophils (%) (Auto) 0.1, Basophils (%) (Auto) 0.2, Neutrophils # (Auto) 16.6H, Lymphocytes # (Auto) 0.4L, Monocytes # (Auto) 1.2H, Eosinophils # (Auto) 0.0, Basophils # (Auto) 0.0, Nucleated Red Blood Cells % (auto) 0.0, Anion Gap 8, Glomerular Filtration Rate 35.5L, Calcium Level 7.9L, Total Bilirubin 1.1H, Direct Bilirubin 0.5H, Aspartate Amino Transf (AST/SGOT) 67H, Alanine Aminotransferase (ALT/SGPT) 57, Alkaline Phosphatase 306H, Total Creatine Kinase 52, Creatine Kinase MB 1.6, Creatine Kinase MB Relative Index 3.08, Troponin I < 0.02, Total Protein 5.8L, Albumin 2.4L, Albumin/Globulin Ratio 0.7, Lipase < 10L 12/30/20 17:00: Lactic Acid Level 3.6*H 12/30/20 17:02: Ammonia 23 12/30/20 17:28: Prothrombin Time 15.2H, Prothromb Time International Ratio 1.15 12/30/20 18:16: Coronavirus (COVID-19)(PCR) NEGATIVE, Influenza Type A (RT-PCR) NEGATIVE, Influenza Type B (RT-PCR) NEGATIVE, Respiratory Syncytial Virus (PCR) NEGATIVE 12/30/20 20:07: Prothrombin Time 15.5H, Prothromb Time International Ratio 1.19, Activated Partial Thromboplast Time 36.4, Lipase < 10L 12/30/20 22:53: Lactic Acid Level 2.7*H 12/31/20 02:04: Lactic Acid Level 3.7*H, Anion Gap 7L, Glomerular Filtration Rate 32.9L, Calcium Level 7.2L, Total Bilirubin 1.6H, Aspartate Amino Transf (AST/SGOT) 39H, Alanine Aminotransferase (ALT/SGPT) 36, Alkaline Phosphatase 191H, Total Protein 4.5#L, Albumin 2.1L, Albumin/Globulin Ratio 0.9 12/31/20 03:15: CBC/BMP Laboratory Tests 12/30/20 16:58 12/30/20 19:22 12/31/20 02:04 Microbiology Microbiology 12/30/20 Blood Culture, Received Pending Allergies Coded Allergies: No Known Allergies (Unverified , 01/08/18) Home Medications Scheduled Aspirin (Aspirin EC) 81 Mg Tablet.dr, 81 MG PO DAILY, (Reported) Cholecalciferol (Vitamin D3) (Vitamin D3) 1,000 Unit Tablet, 1,000 UNITS PO DAILY, (Reported) Furosemide (Furosemide) 40 Mg Tablet, 40 MG PO BID, (Reported) Lactulose (Constulose) 10 Gm/15 Ml Solution, 30 ML PO TID, (Reported) MORNING/DINNER/BEDTIME Magnesium Oxide (Magnesium Oxide) 400 Mg Tablet, 400 MG PO BID, (Reported) Omeprazole (Omeprazole) 20 Mg Capsule.dr, 20 MG PO DAILY, (Reported) Spironolactone (Spironolactone) 100 Mg Tablet, 100 MG PO BID, (Reported) Sulfamethoxazole/Trimethoprim (Bactrim Ds Tablet) 1 Each Tablet, 1 TAB PO DAILY, (Reported) MARY RODRIGUEZ MD Dec 31, 2020 04:01
[2020-12-31 04:13] LABS: SPEC. GRAVITY BODY FLUIDS 1.007 (NOT ESTABLISHED)
[2020-12-31 04:24] LABS: SOURCE, BODY FLUID ASCITES
[2020-12-31 04:26] LABS: APPEARANCE, BODY FLUID HAZY (CLEAR); ASCITES FL COLOR YELLOW (COLORLESS)
[2020-12-31 04:43] LABS: SOURCE, BODY FLUID ALBUMIN ASCITES; SOURCE, BODY FLUID GLUCOSE ASCITES; SOURCE, BODY FLUID TOT PROTEIN ASCITES; TOTAL PROTEIN, BODY FLUID 0.4 G/DL (NOT ESTABLISHED)
--- NOTE | 2020-12-31 04:58 | REPVR ---
PROCEDURE INFORMATION: Exam: XR Chest Exam date and time: 12/31/2020 3:26 AM Age: 65 years old Clinical indication: Other: Central line; Additional info: Confirm central line placement TECHNIQUE: Imaging protocol: XR of the chest. Views: 1 view. COMPARISON: CT Chest without contrast 12/30/2020 6:25 PM FINDINGS: Tubes, catheters and devices: Left internal jugular central line to the mid superior vena cava. Lungs: There is decreased inflation of the lungs. Minimal left base atelectasis or scar. No focal infiltrates. Pleural spaces: Unremarkable. No pleural effusion. No pneumothorax. Heart/Mediastinum: Unremarkable. No cardiomegaly. Bones/joints: Unremarkable. IMPRESSION: 1. Left internal jugular central line to the mid superior vena cava. No pneumothorax. 2. Minimal left base atelectasis or scar. Electronically signed by: Alexander Renee On 12/31/2020 04:57:55 AM
[2020-12-31 05:21] LABS: HEMATOCRIT 28.2 % (42.0-52.0); MEAN CORPUSCULAR HEMOGLOBIN 31.9 pg (27.0-33.0); MEAN CORPUSCULAR VOLUME 93.7 fl (80.0-96.0); PLATELET COUNT, AUTOMATED 112 10^3/uL (150-450); RED BLOOD COUNT 3.01 10^6/uL (4.30-6.10); WHITE BLOOD COUNT 13.6 10^3/uL (4.0-10.0)
[2020-12-31 05:33] LABS: HEMOGLOBIN 9.6 g/dl (13.5-17.5)
[2020-12-31 05:44] LABS: ALBUMIN 2.6 GM/DL (3.2-5.2); ALT/SGPT 36 U/L (12-78); BILIRUBIN,TOTAL 1.7 MG/DL (0.2-1.0); BLOOD UREA NITROGEN 23 MG/DL (7-18); CALCIUM LEVEL 7.1 MG/DL (8.8-10.2); CARBON DIOXIDE LEVEL 19 MEQ/L (21-32); CHLORIDE LEVEL 98 MEQ/L (98-107); CREATININE FOR GFR 2.18 MG/DL (0.70-1.30); GLOMERULAR FILTRATION RATE 32.7 (>49); GLUCOSE, FASTING 196 MG/DL (70-100); LIPASE < 10 U/L (73-393); MAGNESIUM LEVEL 2.2 MG/DL (1.8-2.4); POTASSIUM SERUM 5.7 MEQ/L (3.5-5.1); SODIUM LEVEL 125 MEQ/L (136-145); TOTAL PROTEIN 5.2 GM/DL (6.4-8.2)
[2020-12-31] MEDS ORDERED: CEFEPIME HCL 2 GM in D5W MINI-BAG PLUS 50 ML IV SCH (06:00)
[2020-12-31] MEDS ORDERED: GLUCAGON INJ 1MG VIAL SC PRN (07:25)
[2020-12-31] MEDS ORDERED: GLUCOSE 4GM CHEW TABLET PO PRN (07:25)
[2020-12-31] MEDS ORDERED: DEXTROSE 50% 50 ML SYRINGE IV PRN (07:25)
[2020-12-31] MEDS ORDERED: HumaLOG INSULIN (NovoLOG) PER UNIT SC SCH ×2 (07:30→21:00)
[2020-12-31] MEDS ORDERED: MIDODRINE 2.5 MG TAB PO SCH (08:00)
[2020-12-31] MEDS: MAGNESIUM OXIDE 400MG TAB (MAG-OX) PO SCH ×2 (08:36→21:46)
[2020-12-31] MEDS: LACTULOSE 20 GM/30 ML SYRUP UD PO SCH (08:36)
[2020-12-31] MEDS: MIDODRINE 5 MG TAB PO SCH ×3 (08:36→17:15)
[2020-12-31] MEDS: OMEPRAZOLE 20 MG CAP PO SCH (08:36)
[2020-12-31] MEDS: CREON-12 CAPSULE PO SCH ×3 (08:36→17:15)
[2020-12-31] MEDS: HEPARIN SOD (PORCINE) 5000UNITS/ML 1ML VIAL/SYRINGE SC SCH ×2 (08:37→21:44)
--- NOTE | 2020-12-31 08:58 | IPNPDOC ---
Subjective Date Seen The patient was seen on 12/31/20. Subjective Chief Complaint/HPI Patient is mentating well and does not appear to be in any acute distress. He denies of fever, chills, nausea, vomiting, abdominal pain, chest pain, palpitation, orthopnea, shortness of breath. General: Denies: Chills, Fatigue Constitutional: Denies: Fever ENT: Denies: Sore Throat Skin: Denies: Rash Pulmonary: Denies: Dyspnea, Cough Cardiovascular: Denies: Chest Pain, Palpitations, Orthopnea Gastrointestinal: Denies: Nausea, Vomiting, Abdominal Pain, Diarrhea Neurological: Denies: Weakness, Numbness Objective Physical Examination General Exam: Positive: Alert, Cooperative, No Acute Distress Eye Exam: Positive: Sclera icteric ENT Exam: Negative: Atraumatic Neck Exam: Positive: Supple; Negative: JVD Chest Exam: Positive: Clear to auscultation, Normal air movement; Negative: Rales, Rhonchi, Wheezing Heart Exam: Positive: Rate Normal, Regular Rhythm Abdomen Exam: Positive: BS Hypoactive, Soft, Tenderness, Other (Abdominal distention with fluid wave/shift) Extremity Exam: Negative: Clubbing, Cyanosis, Edema Skin Exam: Positive: Other skin issue (Multiple ecchymosis of the arms) Neuro Exam: Positive: Normal Speech Psych Exam: Positive: Oriented x 3 Assessment /Plan Assessment This is a 65-year-old gentleman with past medical history of 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 He was found to have a new profound KAILEE. Refractory hyperkalemia on admission. 1. Distributive shock. 2. KAILEE with differential of ATN versus prerenal azotemia versus hepatorenal syndrome 3. Hyperkalemia. 4. Ascites with history of liver cirrhosis 5. History is a pancreatic adenocarcinoma status post Whipple procedure 3 years ago Plan: -I believe the nature of his distributive shock is likely from hepatorenal failure as opposed to infectious etiology. Infectious work-up has been sent. Diagnostic paracentesis was performed and fluid was sent for analysis and culture. Continue with hemodynamic support to target MAP greater than 60 or systolic blood pressure greater than 90. Continue with Zosyn until blood culture and ascites fluid culture are finalized. -Recommend nephrology consultation for the KAILEE. This could be likely related to prerenal azotemia as patient has been having poor oral intake for the last 24 hours. He is making urine. Continue with Levophed, octreotide, midodrine, albumin 1 g/kg infusion for the next 24 hours. Continue monitor urine output. Check urinalysis. -Continue to monitor potassium. I anticipate it will downtrend as his kidney function improves. There is no urgent indication for dialysis at this point. Plan/VTE VTE Prophylaxis Ordered?: Yes Plan -The nature of distributive shock appears to be hepatorenal etiology. There is no clear source of sepsis. Ascites fluid was consistent with portal hypertension and no evidence of SBP. Cultures pending. Recommend continuing with antibiotic until ascites fluid culture is finalized. -Creatinine appears to be plateauing. This is likely a ischemic ATN as opposed to hepatorenal syndrome. However, recommend to continue with octreotide, norepinephrine for hemodynamic support, midodrine, albumin 1 g/kg until we see improvement in his creatinine clearance. Nephrology was consulted early in the morning. -Hyperkalemia is improving with self diuresis. Will closely monitor. At this point, there is no indication for urgent or emergent dialysis. Disposition Continue ICU care. VS, I&O, 24H, Fishbone Vital Signs/I&O Vital Signs Date Time Temp Pulse Resp B/P (MAP) Pulse Ox O2 Delivery O2 Flow Rate FiO2 12/31/20 05:00 79 14 108/58 99 12/31/20 04:30 Room Air 12/31/20 02:22 98.3 I&O- Last 24 Hours up to 6 AM 12/31/20 06:00 Intake Total 2840.0 ml Output Total 60 ml Balance 2780.0 ml Laboratory Data 24H LABS Laboratory Tests 2 12/30/20 16:58: Immature Granulocyte % (Auto) 0.8, Neutrophils (%) (Auto) 90.4H, Lymphocytes (%) (Auto) 2.1L, Monocytes (%) (Auto) 6.4, Eosinophils (%) (Auto) 0.1, Basophils (%) (Auto) 0.2, Neutrophils # (Auto) 16.6H, Lymphocytes # (Auto) 0.4L, Monocytes # (Auto) 1.2H, Eosinophils # (Auto) 0.0, Basophils # (Auto) 0.0, Nucleated Red Blood Cells % (auto) 0.0, Anion Gap 8, Glomerular Filtration Rate 35.5L, Calcium Level 7.9L, Total Bilirubin 1.1H, Direct Bilirubin 0.5H, Aspartate Amino Transf (AST/SGOT) 67H, Alanine Aminotransferase (ALT/SGPT) 57, Alkaline Phosphatase 306H, Total Creatine Kinase 52, Creatine Kinase MB 1.6, Creatine Kinase MB Relative Index 3.08, Troponin I < 0.02, Total Protein 5.8L, Albumin 2.4L, Albumin/Globulin Ratio 0.7, Lipase < 10L 12/30/20 17:00: Lactic Acid Level 3.6*H 12/30/20 17:02: Ammonia 23 12/30/20 17:28: Prothrombin Time 15.2H, Prothromb Time International Ratio 1.15 12/30/20 18:16: Coronavirus (COVID-19)(PCR) NEGATIVE, Influenza Type A (RT-PCR) NEGATIVE, Influenza Type B (RT-PCR) NEGATIVE, Respiratory Syncytial Virus (PCR) NEGATIVE 12/30/20 20:07: Prothrombin Time 15.5H, Prothromb Time International Ratio 1.19, Activated Partial Thromboplast Time 36.4, Lipase < 10L 12/30/20 22:53: Lactic Acid Level 2.7*H 12/31/20 02:04: Lactic Acid Level 3.7*H, Anion Gap 7L, Glomerular Filtration Rate 32.9L, Calcium Level 7.2L, Total Bilirubin 1.6H, Aspartate Amino Transf (AST/SGOT) 39H, Alanine Aminotransferase (ALT/SGPT) 36, Alkaline Phosphatase 191H, Total Protein 4.5#L, Albumin 2.1L, Albumin/Globulin Ratio 0.9 12/31/20 03:15: Urine Color DAO, Urine Appearance HAZY, Urine pH 5.0, Urine Specific [place] 1.019, Urine Protein NEGATIVE, Urine Glucose (UA) 1+H, Urine Ketones TRACEH, Urine Blood NEGATIVE, Urine Nitrite NEGATIVE, Urine Bilirubin NEGATIVE, Urine Urobilinogen 2.0H, Urine Leukocyte Esterase NEGATIVE, Urine WBC (Auto) 2, Urine RBC (Auto) 1, Urine Hyaline Casts (Auto) 66, Urine Bacteria (Auto) NEGATIVE, Urine Squamous Epithelial Cells 1, Urine Mucus (Auto) SMALL, Urine Sperm (Auto) , Methicillin-Resist S.aureus DNA PCR NOT DETECTED 12/31/20 03:54: Body Fluid Source ASCITES, Body Fluid Color YELLOW, Body Fluid Appearance HAZY, Body Fluid Specific [place] 1.007, Body Fluid WBC (Auto) 114H, Body Fluid RBC (Auto) 4, Body Fluid Mononuclear Cells % Auto 79.8H, Fluid Polymorphonuclear Cell % Auto 20.2H, Body Fluid Glucose Source ASCITES, Body Fluid Glucose 142, Body Fluid Protein Source ASCITES, Body Fluid Total Protein 0.4, Body Fluid Albumin Source ASCITES, Body Fluid Albumin 0.2 12/31/20 04:52: Nucleated Red Blood Cells % (auto) 0.0, Anion Gap 8, Glomerular Filtration Rate 32.7L, Calcium Level 7.1L, Magnesium Level 2.2, Total Bilirubin 1.7H, Aspartate Amino Transf (AST/SGOT) 40H, Alanine Aminotransferase (ALT/SGPT) 36, Alkaline Phosphatase 192H, Total Protein 5.2L, Albumin 2.6#L, Albumin/Globulin Ratio 1.0, Lipase < 10L 12/31/20 04:59: Bedside Glucose (Misc Panel) 199H 12/31/20 06:57: Lactic Acid Followup at 4 Hours 2.5*H CBC/BMP Laboratory Tests 12/30/20 16:58 12/30/20 19:22 12/31/20 02:04 12/31/20 04:52 Microbiology Microbiology 12/31/20 Acid Fast Stain, Received Pending 12/31/20 Mycobacterial Culture, Received Pending 12/31/20 Fungal Smear, Received Pending 12/31/20 Fungal Culture, Received Pending 12/31/20 Gram Stain, Received Pending 12/31/20 Body Fluid Culture, Received Pending 12/30/20 Blood Culture, Received Pending MARY RODRIGUEZ MD Dec 31, 2020 08:55
[2020-12-31] MEDS ORDERED: ASPIRIN 81MG ENTERIC TABLET PO SCH (09:00)
--- NOTE | 2020-12-31 10:20 | IPN ---
PROGRESS NOTE DATE: 12/31/2020 SUBJECTIVE: Patient remains on Levophed drip due to persistent hypotension. Mean arterial pressure is currently 79 at the bedside on Levophed 8 mcg currently being covered with Zosyn for possible intraabdominal infection. He is awake, alert, oriented. He does not complain of any pain, nausea, vomiting, shortness of breath, chest pain, pressure, tightness. There is no confusion, headaches or changes in vision. OBJECTIVE/PHYSICAL EXAMINATION: Vital signs: Temperature maximum 100.1; current temperature 98.3. Pulse 79, sinus rhythm. Respiratory rate 14. Blood pressure 108/58 on Levophed 8 mcg; 99% on room air. Generally: Patient is awake, alert, oriented to person, place and time, answering questions appropriately. No pallor or icterus. No use of respiratory accessory muscles. Anicteric. No jaundice. HEENT: No jugular venous distension (JVD), cervical lymphadenopathy. Dry mucous membranes. Lungs: Diminished but clear to auscultation. No wheezing, rales or rhonchi. Heart: S1, S2, sinus rhythm. No murmurs, rubs or gallops. Abdomen: Soft, nontender; hyperactive bowel sounds. Slightly distended. No rebound or guarding. Extremities: No cyanosis or clubbing. LABORATORY DATA: White count 13.6, hemoglobin 9.6, hematocrit 28. Previous hemoglobin 12.9, hematocrit of 37.7, platelet count 112. INR 1.19. Sodium 125, potassium 5.7, chloride 98, bicarbonate 17, BUN 23, creatinine 2.1, glucose 196. Input overnight: 790 from midnight. Yesterday output of 60 mL overnight. Current weight is 72.4 kg from admission weight of 72.1 kg. IMAGING STUDIES: Chest CT, 12/30/2020: Multiple small mediastinal lymph nodes most likely post inflammatory. No acute pulmonary or parenchymal infiltrates. Mild emphysematous changes. CT abdomen and pelvis, 12/30/2020: Mild central spinal stenosis L3, L4; grade 2 anterior spondylolisthesis in L5 and S1 secondary to bilateral L5 spondylolysis. Anasarca. Cholecystectomy. Liver cirrhosis. Moderate free intraperitoneal fluid. Status post gastric bypass surgery. Diffuse pancreatic atrophy and fatty replacement may indicate presence of pancreatitis. Left adrenal hypodense focal mass measuring 2.1 consistent with benign adrenal adenoma. ASSESSMENT AND PLAN: This is a 65-year-old, full code male with a past medical history significant for pancreatic cancer, status post Whipple procedure , liver cirrhosis, benign prostatic hypertrophy (BPH), diabetes, hypertension, hyperlipidemia, lumbar spinal stenosis, benign adrenal adenoma admitted on 12/30/2020 due to persistent nausea and vomiting for one day, unable to take any oral intake, status post paracentesis on 12/28/2020, with 7.5 liters ascites removed due to decompensated liver cirrhosis. Patient was found to be hypotensive with septic shock requiring Levophed drip overnight and albumin transfusions covered with broad-spectrum antibiotic Zosyn. CT chest, abdomen and pelvis showed moderate amount of ascites. He was found to have acute kidney injury with metabolic acidosis, acute hyperkalemia and hyponatremia, status post midodrine/albumin transfusions, Levophed with refractory hypotension requiring vasopressor therapy. Active issues are as follows: 1. Decompensated nonalcoholic idiopathic liver cirrhosis, currently hypotensive with septic shock requiring albumin transfusions and Levophed drip to keep mean arterial pressure above 70. Equipment Operat0R, Dr. Alen Hawthorne, has been consulted as well as service girl for fluid balance. He is currently not having any respiratory distress. We will continue with Levophed drip to keep mean arterial pressure at 70 or greater with albumin infusions, monitor intakes and outputs (I's and O's), daily weights, empiric antibiotic with Zosyn or possible intraabdominal peritonitis. 2. Septic shock secondary to possible peritonitis, currently on IV Zosyn, Levophed drip, albumin transfusions. 3. Acute kidney injury; rule out hepatorenal syndrome with metabolic acidosis, hyperkalemia and hyponatremia. I's and O's have been reviewed. Patient is hypotensive and not an immediate candidate for dialysis. He is currently on Levophed drip, midodrine empiric treatment for intraabdominal infection. 4. Hemodilutional anemia; no immediate need for red blood cell (RBC) transfusion despite his esophageal varices. Patient does not have any active gastrointestinal (GI) bleed. 5. Thrombocytopenia; no active bleeding. Compression stockings for deep vein thrombosis (DVT) prophylaxis. 6. History of pancreatic adenocarcinoma, status post Whipple procedure in 2017. Will obtain records from patient's surgeon in [place] and [employer]. 7. Diabetes on Pancrelipase. Insulin with sliding scale coverage and hypoglycemic protocol. CODE STATUS: Full. Code healthcare proxy is patient's . MTDD
[2020-12-31 17:09] LABS: CALCIUM LEVEL 7.4 MG/DL (8.8-10.2); CREATININE FOR GFR 1.88 MG/DL (0.70-1.30); GLOMERULAR FILTRATION RATE 38.8 (>49); POTASSIUM SERUM 5.4 MEQ/L (3.5-5.1)
[2020-12-31] MEDS: VANCOMYCIN ORAL SOL 250MG/5ML ORAL SYRINGE PO SCH (17:45)
[2021-01-01] VITALS (20 sets, daily range): BP systolic 93–113; BP diastolic 50–74
[2021-01-01] MEDS: VANCOMYCIN ORAL SOL 250MG/5ML ORAL SYRINGE PO SCH ×4 (00:04→18:45)
[2021-01-01] MEDS: PIPERACILLIN/TAZOBACTAM SOD 3.375 GM in D5W MINI-BAG PLUS 50 ML IV SCH ×4 (02:09→20:29)
[2021-01-01 04:31] LABS: HEMATOCRIT 23.8 % (42.0-52.0); HEMOGLOBIN 8.2 g/dl (13.5-17.5); MEAN CORPUSCULAR HEMOGLOBIN 32.8 pg (27.0-33.0); MEAN CORPUSCULAR HGB CONC 34.5 g/dl (32.0-36.5); MEAN CORPUSCULAR VOLUME 95.2 fl (80.0-96.0)
[2021-01-01 04:33] LABS: PLATELET COUNT, AUTOMATED 71 10^3/uL (150-450)
[2021-01-01 04:58] LABS: ALBUMIN 2.6 GM/DL (3.2-5.2); ALT/SGPT 25 U/L (12-78); BLOOD UREA NITROGEN 22 MG/DL (7-18); CARBON DIOXIDE LEVEL 24 MEQ/L (21-32); CHLORIDE LEVEL 101 MEQ/L (98-107); CREATININE FOR GFR 1.71 MG/DL (0.70-1.30); GLOMERULAR FILTRATION RATE 43.3 (>49); GLUCOSE, FASTING 133 MG/DL (70-100); LIPASE < 10 U/L (73-393); MAGNESIUM LEVEL 2.3 MG/DL (1.8-2.4); POTASSIUM SERUM 5.3 MEQ/L (3.5-5.1); SODIUM LEVEL 128 MEQ/L (136-145); TOTAL PROTEIN 4.7 GM/DL (6.4-8.2)
[2021-01-01 04:59] LABS: BILIRUBIN,TOTAL 0.8 MG/DL (0.2-1.0)
[2021-01-01] MEDS ORDERED: CALCIUM GLUCONATE 1,000 MG in D5W MINI-BAG PLUS 100 ML IV ONE (07:25)
[2021-01-01] MEDS ORDERED: SOD POLYSTYRENE SULFONATE SUSP 15 GM/60 ML UD PO ONE (07:25)
--- NOTE | 2021-01-01 07:35 | IPNPDOC ---
Date Seen The patient was seen on 01/01/21. Progress Note S: off levophed iv gtt. no c/o sob despite albumin 2u q6hrs. MAP >75-80 overnight on midodrine. denies n/v/abd pain. slight increase abd distention, but comfortable. cdiff + on vanco po day 2. lactulose held due to cdiff. k 5.3 given ca gluconate and kayexalate this am. O: PE vitals: see below i/o: see below Generally: laying flat on bed w/o distress. no conversational dyspnea. Patient is awake, alert, oriented to person, place and time, answering questions appropriately. No pallor or icterus. No use of respiratory accessory muscles. Anicteric. No jaundice. HEENT: No jugular venous distension (JVD), cervical lymphadenopathy. moist mucous membranes. no thyromegaly no carotid bruit Lungs: Diminished no kyphosis clear to auscultation. No wheezing, rales or rhonchi. Heart: S1, S2, sinus rhythm. No murmurs, rubs or gallops. Abdomen: Soft, nontender; + bowel sounds. Slightly distended. No rebound or guarding. Extremities: No cyanosis or clubbing.+ pitting edema LABORATORY DATA/MICROBIOLOGY: SEE BELOW IMAGING STUDIES: Chest CT, 12/30/2020: Multiple small mediastinal lymph nodes most likely post inflammatory. No acute pulmonary or parenchymal infiltrates. Mild emphysematous changes. CT abdomen and pelvis, 12/30/2020: Mild central spinal stenosis L3, L4; grade 2 anterior spondylolisthesis in L5 and S1 secondary to bilateral L5 spondylolysis. Anasarca. Cholecystectomy. Liver cirrhosis. Moderate free intraperitoneal fluid. Status post gastric bypass surgery. Diffuse pancreatic atrophy and fatty replacement may indicate presence of pancreatitis. Left adrenal hypodense focal mass measuring 2.1 consistent with benign adrenal adenoma. ASSESSMENT AND PLAN: This is a 65-year-old, full code male with a past medical history significant for pancreatic cancer, status post Whipple procedure , liver cirrhosis, benign prostatic hypertrophy (BPH), diabetes, hypertension, hyperlipidemia, lumbar spinal stenosis, benign adrenal adenoma admitted on 12/30/2020 due to persistent nausea and vomiting for one day, unable to take any oral intake, status post paracentesis on 12/28/2020, with 7.5 liters ascites removed due to decompensated liver cirrhosis. Patient was found to be hypotensive with septic shock requiring Levophed drip overnight and albumin transfusions covered with broad-spectrum antibiotic Zosyn. CT chest, abdomen and pelvis showed moderate amount of ascites. He was found to have acute kidney injury with metabolic acidosis, acute hyperkalemia and hyponatremia, status post midodrine/albumin transfusions, Levophed with refractory hypotension requiring vasopressor therapy. Active issues are as follows: Decompensated nonalcoholic idiopathic liver cirrhosis,S/P septic shock from gram negative sepsis -off levophed gtt -on midodrine -continue albumin infusions q6hrs to keep map >70 -on iv zosyn Septic shock secondary gram neg sepsis -HD stable, may tx to [facility] surg tele -on iv zosyn -monitor urine output and creatinine -monitor for fluid overload Acute kidney injury; rule out hepatorenal syndrome with metabolic acidosis, hyperkalemia and hyponatremia. -avoid nephrotoxins -kayexalate and calcium gluconate iv -continue albumin infusions q6hrs -strict i/o, weigh daily C diff colitis -present on admission -trial of po vancomycin x 3 days. -if #bm does not decrease by 50%, consider dificid x 10 days and zinplava after discharge. -consider that loose bm may be due to kayexalate being given for hyperkalemia Hemodilutional anemia; no immediate need for red blood cell (RBC) transfusion despite his esophageal varices. Patient does not have any active gastrointestinal (GI) bleed. Thrombocytopenia; no active bleeding. -dced heparin sq -Compression stockings for deep vein thrombosis (DVT) prophylaxis. History of pancreatic adenocarcinoma, status post Whipple procedure in 2017. Diabetes on Pancrelipase. Insulin with sliding scale coverage and hypoglycemic protocol. CODE STATUS: Full. Code healthcare proxy is patient's . disposition: medsurg if map>75, tele for electrolyte abnormalities. VS, I&O, 24H, Fishbone Vital Signs/I&O Vital Signs Date Time Temp Pulse Resp B/P (MAP) Pulse Ox O2 Delivery O2 Flow Rate FiO2 01/01/21 07:11 97.0 57 16 102/60 98 Room Air I&O- Last 24 Hours up to 6 AM 01/01/21 06:00 Intake Total 2390.0 ml Output Total 1245 ml Balance 1145.0 ml Laboratory Data 24H LABS Laboratory Tests 2 12/31/20 16:25: Anion Gap 7L, Glomerular Filtration Rate 38.8L, Calcium Level 7.4L 01/01/21 04:17: Anion Gap 3L, Glomerular Filtration Rate 43.3L, Calcium Level 7.0L, Nucleated Red Blood Cells % (auto) 0.0, Immature Platelet Fraction 3.8, Magnesium Level 2.3, Total Bilirubin 0.8#, Aspartate Amino Transf (AST/SGOT) 22, Alanine Aminotransferase (ALT/SGPT) 25, Alkaline Phosphatase 137H, Total Protein 4.7L, Albumin 2.6L, Albumin/Globulin Ratio 1.2, Lipase < 10L CBC/BMP Laboratory Tests 12/31/20 16:25 01/01/21 04:17 Microbiology Microbiology 01/01/21 Blood Culture, Received Pending 12/31/20 Gastrointestinal Tract Panel (PCR) - Final, Complete Clostridium Difficile A/B 12/31/20 Acid Fast Stain, Received Pending 12/31/20 Mycobacterial Culture, Received Pending 12/31/20 Fungal Smear, Received Pending 12/31/20 Fungal Culture, Received Pending 12/31/20 Gram Stain - Final, Resulted 12/31/20 Body Fluid Culture, Resulted Pending 12/30/20 Blood Culture - Preliminary, Resulted SAE RUTHERFORD MD Jan 01, 2021 07:35
[2021-01-01] MEDS: CREON-12 CAPSULE PO SCH ×3 (08:12→18:45)
[2021-01-01] MEDS: MAGNESIUM OXIDE 400MG TAB (MAG-OX) PO SCH ×2 (08:12→20:29)
[2021-01-01] MEDS: OMEPRAZOLE 20 MG CAP PO SCH (08:12)
[2021-01-01] MEDS: MIDODRINE 5 MG TAB PO SCH ×3 (08:12→16:06)
[2021-01-01] MEDS ORDERED: SLF 3 ML SYR IV PRN (12:55)
[2021-01-01] MEDS: SODIUM CHLORIDE 0.9% INJ 10 ML SYR IV SCH ×2 (14:12→22:00)
[2021-01-01] MEDS: SLF 3 ML SYR IV SCH ×2 (14:13→22:00)
[2021-01-02] VITALS: BP 113/68
[2021-01-02] MEDS: VANCOMYCIN ORAL SOL 250MG/5ML ORAL SYRINGE PO SCH ×5 (00:36→23:22)
[2021-01-02] MEDS: PIPERACILLIN/TAZOBACTAM SOD 3.375 GM in D5W MINI-BAG PLUS 50 ML IV SCH ×4 (03:12→20:18)
[2021-01-02 04:00] VITALS: BP 117/71
[2021-01-02] MEDS: SLF 3 ML SYR IV SCH ×3 (05:34→21:41)
[2021-01-02] MEDS: SODIUM CHLORIDE 0.9% INJ 10 ML SYR IV SCH ×3 (05:34→21:41)
[2021-01-02 06:11] LABS: HEMATOCRIT 23.9 % (42.0-52.0); HEMOGLOBIN 8.3 g/dl (13.5-17.5); MEAN CORPUSCULAR HEMOGLOBIN 32.9 pg (27.0-33.0); MEAN CORPUSCULAR HGB CONC 34.7 g/dl (32.0-36.5); MEAN CORPUSCULAR VOLUME 94.8 fl (80.0-96.0); RED BLOOD COUNT 2.52 10^6/uL (4.30-6.10); WHITE BLOOD COUNT 5.4 10^3/uL (4.0-10.0)
[2021-01-02 06:12] LABS: PLATELET COUNT, AUTOMATED 81 10^3/uL (150-450)
[2021-01-02 06:22] LABS: ALBUMIN 2.6 GM/DL (3.2-5.2); ALT/SGPT 22 U/L (12-78); BILIRUBIN,TOTAL 0.7 MG/DL (0.2-1.0); BLOOD UREA NITROGEN 18 MG/DL (7-18); CALCIUM LEVEL 7.2 MG/DL (8.8-10.2); CARBON DIOXIDE LEVEL 24 MEQ/L (21-32); CHLORIDE LEVEL 104 MEQ/L (98-107); CREATININE FOR GFR 1.14 MG/DL (0.70-1.30); GLOMERULAR FILTRATION RATE > 60.0 (>49); GLUCOSE, FASTING 103 MG/DL (70-100); LIPASE < 10 U/L (73-393); MAGNESIUM LEVEL 2.2 MG/DL (1.8-2.4); POTASSIUM SERUM 4.8 MEQ/L (3.5-5.1); SODIUM LEVEL 131 MEQ/L (136-145); TOTAL PROTEIN 4.5 GM/DL (6.4-8.2)
[2021-01-02 07:36] VITALS: BP 98/63
[2021-01-02] MEDS: MIDODRINE 5 MG TAB PO SCH ×3 (08:46→17:01)
[2021-01-02] MEDS: CREON-12 CAPSULE PO SCH ×3 (08:46→17:02)
[2021-01-02] MEDS: OMEPRAZOLE 20 MG CAP PO SCH (08:46)
[2021-01-02] MEDS: MAGNESIUM OXIDE 400MG TAB (MAG-OX) PO SCH ×2 (08:46→20:18)
--- NOTE | 2021-01-02 10:47 | IPN ---
PROGRESS NOTE DATE: 01/02/2021 SUBJECTIVE: Patient's C. diff is improving. He has had no bowel movement today, beginning to appear formed. Creatinine is back to normal at 1.14. Blood pressure is maintained with mean pressure greater than 70 on Midodrine and albumin transfusions. Patient denies any shortness of breath, nausea, vomiting, chest pain, pressure or tightness. No dizziness or lightheadedness. OBJECTIVE: VITAL SIGNS: Temperature 99.5, pulse 72, respiratory rate 18, blood pressure 98/63, 98% on room air. GENERAL: Patient is awake, alert and oriented to person, place and time. Anicteric. No jaundice. LUNGS: Diminished fine crackles at the bases. HEART: S1, S2, sinus rhythm. ABDOMEN: Distended, but positive bowel sounds. No rebound or guarding. Rivera catheter in place with yellow urine. EXTREMITIES: No cyanosis or clubbing. LABORATORY DATA/IMAGING STUDIES/MICROBIOLOGY: Have been reviewed. ASSESSMENT: This is a 65-year-old male with a history of pancreatic cancer; status post Whipple procedure, liver cirrhosis, BPH, diabetes, hypertension, hyperlipidemia, lumbar stenosis, benign adrenal adenoma, admitted on 12/30/2020 due to persistent nausea, vomiting, unable to take oral intake; status post paracentesis on 12/28/2020 with 7.5 liters of ascitic fluid removed due to decompensated liver cirrhosis. Patient was admitted with hypotension and septic shock requiring Levophed drip and albumin transfusions with acute kidney injury, given I.V. Zosyn for intraabdominal infection. Blood culture grew out E. Coli. Patient had acute kidney injury with metabolic acidosis, hyperkalemia, hyponatremia; status post Midodrine, albumin transfusions and Levophed drip. Currently off vasopressor and managed on the medical floor. ACTIVE ISSUES: Are as follows: 1. Gram-negative bacteremia with E. Coli. 2. Decompensated nonalcoholic idiopathic liver cirrhosis; status post septic shock. 3. Septic shock; status post Levophed. 4. Acute kidney injury with metabolic acidosis, hyperkalemia, hyponatremia; resolved. 5. C. diff colitis present on admission. 6. Hemodilutional anemia secondary to multiple albumin transfusions. 7. Chronic thrombocytopenia without active bleeding. 8. History of pancreatic adenocarcinoma; status post Whipple procedure. 9. Diabetes and pancrelipase. PLAN: Patient has improved significantly, now has normal renal function. He is currently on Vancomycin 250 every 6 hours. For Clostridium Difficile on contact isolation and with formed stools and decreased amount of stool. Blood pressure is well maintained with mean arterial pressure greater than 70 on Midodrine and albumin transfusions. Creatinine is normal. He is continued on Zosyn for E. Coli in blood culture on 12/30. Repeat blood culture is negative. May transition to oral Levaquin or Ampicillin in the next 24 to 48 hours. PT/OT consulted. ARU screen. MTDD
[2021-01-02 16:50] VITALS: BP 112/65
[2021-01-02 18:34] VITALS: BP 114/67
[2021-01-02 22:00] VITALS: BP 113/60
[2021-01-03] MEDS: PIPERACILLIN/TAZOBACTAM SOD 3.375 GM in D5W MINI-BAG PLUS 50 ML IV SCH ×4 (02:21→21:00)
[2021-01-03] MEDS: VANCOMYCIN ORAL SOL 250MG/5ML ORAL SYRINGE PO SCH ×4 (05:12→23:48)
[2021-01-03] MEDS: SLF 3 ML SYR IV SCH (05:12)
[2021-01-03] MEDS: SODIUM CHLORIDE 0.9% INJ 10 ML SYR IV SCH ×3 (05:12→23:48)
[2021-01-03 05:36] LABS: HEMATOCRIT 25.6 % (42.0-52.0); HEMOGLOBIN 8.7 g/dl (13.5-17.5); MEAN CORPUSCULAR HEMOGLOBIN 32.1 pg (27.0-33.0); MEAN CORPUSCULAR VOLUME 94.5 fl (80.0-96.0); PLATELET COUNT, AUTOMATED 104 10^3/uL (150-450); RED BLOOD COUNT 2.71 10^6/uL (4.30-6.10)
[2021-01-03 06:00] VITALS: BP 100/64
[2021-01-03 06:01] LABS: ALBUMIN 2.3 GM/DL (3.2-5.2); ALT/SGPT 22 U/L (12-78); BILIRUBIN,TOTAL 0.8 MG/DL (0.2-1.0); BLOOD UREA NITROGEN 14 MG/DL (7-18); CARBON DIOXIDE LEVEL 24 MEQ/L (21-32); CHLORIDE LEVEL 104 MEQ/L (98-107); CREATININE FOR GFR 0.97 MG/DL (0.70-1.30); GLOMERULAR FILTRATION RATE > 60.0 (>49); GLUCOSE, FASTING 113 MG/DL (70-100); LIPASE < 10 U/L (73-393); MAGNESIUM LEVEL 1.9 MG/DL (1.8-2.4); POTASSIUM SERUM 4.5 MEQ/L (3.5-5.1); SODIUM LEVEL 132 MEQ/L (136-145); TOTAL PROTEIN 4.4 GM/DL (6.4-8.2)
[2021-01-03] MEDS: OMEPRAZOLE 20 MG CAP PO SCH (09:05)
[2021-01-03] MEDS: CREON-12 CAPSULE PO SCH ×3 (09:06→17:24)
[2021-01-03] MEDS: MIDODRINE 5 MG TAB PO SCH ×3 (09:06→17:24)
[2021-01-03] MEDS: MAGNESIUM OXIDE 400MG TAB (MAG-OX) PO SCH ×2 (09:06→21:00)
--- NOTE | 2021-01-03 10:00 | IPNPDOC ---
Date Seen The patient was seen on 01/03/21. Progress Note SUBJECTIVE: No loose bowel movements patient says that he has been having formed stools no fever chills he has noticed increased abdominal distention No nausea vomiting or abdominal pain OBJECTIVE: VITAL SIGNS: See below GENERAL: No distress LUNGS: Diminished no adventitious breath sounds HEART: S1, S2, sinus rhythm. ABDOMEN: Distended, but positive bowel sounds. No rebound or guarding. Rivera catheter in place with yellow urine. No fluid wave EXTREMITIES: No cyanosis positive edema positive clubbing SKIN: Multiple ecchymotic areas bilateral upper extremities with skin tears right upper extremity LABORATORY DATA/IMAGING STUDIES/MICROBIOLOGY: Have been reviewed. ASSESSMENT: This is a 65-year-old male with a history of pancreatic cancer; status post Whipple procedure, liver cirrhosis, BPH, diabetes, hypertension, hyperlipidemia, lumbar stenosis, benign adrenal adenoma, admitted on 12/30/2020 due to persistent nausea, vomiting, unable to take oral intake; status post paracentesis on 12/28/2020 with 7.5 liters of ascitic fluid removed due to decompensated liver cirrhosis. Patient was admitted with hypotension and septic shock requiring Levophed drip and albumin transfusions with acute kidney injury, given I.V. Zosyn for intraabdominal infection. Blood culture grew out E. Coli. Patient had acute kidney injury with metabolic acidosis, hyperkalemia, hyponatremia; status post Midodrine, albumin transfusions and Levophed drip. Currently off vasopressor and managed on the medical floor. ACTIVE ISSUES: Are as follows: 1. Gram-negative bacteremia with E. Coli. 2. Decompensated nonalcoholic idiopathic liver cirrhosis; status post septic shock. 3. Septic shock; status post Levophed. 4. Acute kidney injury with metabolic acidosis, hyperkalemia, hyponatremia; resolved. 5. C. diff colitis present on admission. 6. Hemodilutional anemia secondary to multiple albumin transfusions. 7. Chronic thrombocytopenia without active bleeding. 8. History of pancreatic adenocarcinoma; status post Whipple procedure. 9. Diabetes and pancrelipase. 10. Skin tears PLAN: Doing well without loose bowel movements on oral vancomycin. Repeat ultrasound of the abdomen tomorrow to check for worsening ascites and need for paracentesis. Repeat blood culture if negative may continue on Levaquin as outpatient. Still complains of generalized weakness and needs 1-2 more sessions of physical therapy. Continue with midodrine albumin infusions again if patient requires paracentesis in the morning. Discharge plans 1 to 2 days. Topical bacitracin to open skin tears. Keep skin dry. VS, I&O, 24H, Fishbone Vital Signs/I&O Vital Signs Date Time Temp Pulse Resp B/P (MAP) Pulse Ox O2 Delivery O2 Flow Rate FiO2 01/03/21 06:00 96.8 66 18 100/64 (76) 96 Room Air I&O- Last 24 Hours up to 6 AM 01/03/21 06:00 Intake Total 1355 ml Output Total 1400 ml Balance -45 ml Laboratory Data 24H LABS Laboratory Tests 2 01/03/21 05:14: Anion Gap 4L, Glomerular Filtration Rate > 60.0, Calcium Level 7.0L, Magnesium Level 1.9, Total Bilirubin 0.8, Aspartate Amino Transf (AST/SGOT) 25, Alanine Am inotransferase (ALT/SGPT) 22, Alkaline Phosphatase 112, Total Protein 4.4L, Albumin 2.3L, Albumin/Globulin Ratio 1.1, Lipase < 10L 01/03/21 05:15: Nucleated Red Blood Cells % (auto) 0.0 CBC/BMP Laboratory Tests 01/03/21 05:14 01/03/21 05:15 Microbiology Microbiology 01/01/21 Blood Culture - Preliminary, Resulted No Growth after 48 hours. All Specime... 12/31/20 Gastrointestinal Tract Panel (PCR) - Final, Complete Clostridium Difficile A/B 12/31/20 Acid Fast Stain, Received Pending 12/31/20 Mycobacterial Culture, Received Pending 12/31/20 Fungal Smear, Received Pending 12/31/20 Fungal Culture, Received Pending 12/31/20 Gram Stain - Final, Complete 12/31/20 Body Fluid Culture - Final, Complete 12/30/20 Blood Culture - Final, Complete Escherichia Coli SAE RUTHERFORD MD Jan 03, 2021 10:00
[2021-01-03] MEDS: SODIUM CHLORIDE 0.9% INJ 10 ML SYR IV PRN (10:28)
[2021-01-03] MEDS: BACITRACIN OINTMENT 30GM TUBE TOP SCH ×2 (12:16→21:00)
[2021-01-03 14:00] VITALS: BP 126/84
[2021-01-03] MEDS: TRIAMCINOLONE ACET 0.1% OINTMENT 80 GM TOP SCH ×2 (17:25→21:01)
[2021-01-03 22:00] VITALS: BP 117/73
[2021-01-03] MEDS ORDERED: LIDOCAINE 2% 5ML JELLY UROJET TOP ONE (22:00)
[2021-01-03] MEDS ORDERED: TAMSULOSIN 0.4 MG CAP PO ONE (23:35)
[2021-01-03] MEDS: RAMELTEON 8 MG TAB (ROZEREM) PO PRN (23:47)
[2021-01-04] MEDS: PIPERACILLIN/TAZOBACTAM SOD 3.375 GM in D5W MINI-BAG PLUS 50 ML IV SCH ×4 (02:59→20:22)
[2021-01-04] MEDS: SODIUM CHLORIDE 0.9% INJ 10 ML SYR IV SCH ×3 (06:42→21:38)
[2021-01-04] MEDS: VANCOMYCIN ORAL SOL 250MG/5ML ORAL SYRINGE PO SCH ×3 (06:42→18:24)
[2021-01-04 07:25] LABS: HEMATOCRIT 26.6 % (42.0-52.0); HEMOGLOBIN 9.3 g/dl (13.5-17.5); MEAN CORPUSCULAR HEMOGLOBIN 32.9 pg (27.0-33.0); PLATELET COUNT, AUTOMATED 118 10^3/uL (150-450); RED BLOOD COUNT 2.83 10^6/uL (4.30-6.10); WHITE BLOOD COUNT 6.4 10^3/uL (4.0-10.0)
[2021-01-04 07:36] LABS: INR 1.36; PROTHROMBIN TIME 17.2 SECONDS (12.7-14.5)
[2021-01-04 07:47] LABS: ALBUMIN 2.3 GM/DL (3.2-5.2); ALT/SGPT 22 U/L (12-78); BILIRUBIN,TOTAL 0.9 MG/DL (0.2-1.0); BLOOD UREA NITROGEN 14 MG/DL (7-18); CALCIUM LEVEL 7.3 MG/DL (8.8-10.2); CARBON DIOXIDE LEVEL 23 MEQ/L (21-32); CHLORIDE LEVEL 103 MEQ/L (98-107); CREATININE FOR GFR 0.96 MG/DL (0.70-1.30); GLOMERULAR FILTRATION RATE > 60.0 (>49); GLUCOSE, FASTING 112 MG/DL (70-100); LIPASE < 10 U/L (73-393); MAGNESIUM LEVEL 2.2 MG/DL (1.8-2.4); POTASSIUM SERUM 4.7 MEQ/L (3.5-5.1); SODIUM LEVEL 131 MEQ/L (136-145); TOTAL PROTEIN 4.7 GM/DL (6.4-8.2)
[2021-01-04] MEDS: TAMSULOSIN 0.4 MG CAP PO SCH (10:04)
[2021-01-04] MEDS: MIDODRINE 5 MG TAB PO SCH ×3 (10:04→18:24)
[2021-01-04] MEDS: CREON-12 CAPSULE PO SCH ×3 (10:04→18:24)
[2021-01-04] MEDS: MAGNESIUM OXIDE 400MG TAB (MAG-OX) PO SCH ×2 (10:04→20:21)
[2021-01-04] MEDS: OMEPRAZOLE 20 MG CAP PO SCH (10:04)
[2021-01-04] MEDS: BACITRACIN OINTMENT 30GM TUBE TOP SCH ×2 (10:05→20:27)
[2021-01-04] MEDS: TRIAMCINOLONE ACET 0.1% OINTMENT 80 GM TOP SCH ×2 (10:05→20:27)
[2021-01-04] MEDS: SODIUM CHLORIDE 0.9% INJ 10 ML SYR IV PRN (10:11)
--- NOTE | 2021-01-04 12:06 | IPN ---
PROGRESS NOTE DATE: 12/30/2020 SUBJECTIVE: This morning patient complains of increasing abdominal distention, but denies any increasing heaviness, nausea, vomiting, epigastric pain or worsening shortness of breath. He complains of weakness and says that he feels too weak to go home today. Vital signs have remained stable. Mean arterial pressure has remained from 76 to 98 on midodrine. Patient's creatinine is otherwise normal. He has no cough, fever or chills or shortness of breath. Patient has no more diarrhea, has formed stools. OBJECTIVE: Vital signs: Temperature 99.2, pulse 96, respiratory rate 19, blood pressure 117/73, 99% on room air. General: Awake, alert, oriented to person, place and time, answering questions appropriately. No respiratory distress. HEENT: Anicteric, no jaundice. Neck: No JVD or thyromegaly. No cervical lymphadenopathy. Lungs: Diminished, but clear to auscultation, no wheezing or rales. No adventitious breath sounds. Heart: S1 and S2 sinus rhythm, no murmurs, rubs or gallops. Abdomen: Slightly more distended, tympanitic with positive bowel sounds, nontender. No CVA tenderness. Extremities: 2+ pitting edema. LABORATORY DATA: CBC, metabolic panel, microbiology have all been reviewed. Please see the chart. IMAGING STUDIES: Please see the chart. ASSESSMENT: 65-year-old male with a history of pancreatic cancer status post Whipple procedure, liver cirrhosis, BPH, diabetes, hypertension, hyperlipidemia, lumbar stenosis, benign adrenal adenoma admitted on 12/30/2020 due to persistent nausea, vomiting and decreased oral intake after having a paracentesis the previous Monday on 12/28/2020 with 7.5 liters of acidic fluid removed due to decompensated liver cirrhosis. Patient was admitted for septic shock with possible intra-abdominal infection and peritonitis, started on I.V. Zosyn, requires I.V. Levophed and albumin transfusions 2 packs q6h. Patient grew E. coli in the blood culture. He had acute kidney injury with metabolic acidosis, hyperkalemia and hyponatremia status post midodrine and albumin transfusions with resultant improvement from a creatinine of 2.18 to the current creatinine 0.96. Patient's Levophed was tapered off. One day after hospital admission on 12/31/2020 he was found to have Clostridium difficile A and B and was started on vancomycin 250 q6h to complete a 10 day course. Patient remained stable and was transferred off the ICU to the medical floor. He currently has increasing abdominal distention with repeat ultrasound planned for today. IMPRESSIONS: 1. Decompensated non-alcoholic idiopathic liver cirrhosis. 2. Septic shock. 3. E. coli bacteremia. 4. Acute kidney injury and metabolic acidosis, hyperkalemia, hyponatremia: Resolved. 5. Clostridium difficile colitis present on hospital admission. 6. Hemodilutional anemia. 7. Chronic hypotension requiring midodrine. 8. History of pancreatic adenoidectomy: Status post Whipple procedure. 9. Diabetes: On pancrelipase. 10. Chronic thrombocytopenia. 11. Skin tears. 12. Left lower extremity rash. PLAN: Patient is medically stable for hospital discharge, but complains of feeling very weak. Since his abdomen is much more distended today we will send for ultrasound and possible paracentesis for therapeutic purposes. He is currently stable on his current dose of midodrine which we can decrease to 5 mg three times a day as needed. He is still on Zosyn, but can be transitioned to oral Levaquin once he is ready for hospital discharge. [facility]
[2021-01-04 14:00] VITALS: BP 98/72
[2021-01-04] MEDS: RAMELTEON 8 MG TAB (ROZEREM) PO PRN (20:21)
[2021-01-04 22:00] VITALS: BP 108/70
[2021-01-05] MEDS: VANCOMYCIN ORAL SOL 250MG/5ML ORAL SYRINGE PO SCH ×4 (00:17→18:19)
[2021-01-05] MEDS: PIPERACILLIN/TAZOBACTAM SOD 3.375 GM in D5W MINI-BAG PLUS 50 ML IV SCH ×4 (02:37→20:54)
[2021-01-05] MEDS: SODIUM CHLORIDE 0.9% INJ 10 ML SYR IV SCH ×3 (05:45→21:12)
[2021-01-05 06:00] VITALS: BP 101/68
[2021-01-05 06:07] LABS: HEMATOCRIT 25.6 % (42.0-52.0); HEMOGLOBIN 8.7 g/dl (13.5-17.5); MEAN CORPUSCULAR HEMOGLOBIN 32.2 pg (27.0-33.0); MEAN CORPUSCULAR VOLUME 94.8 fl (80.0-96.0); PLATELET COUNT, AUTOMATED 128 10^3/uL (150-450); WHITE BLOOD COUNT 6.5 10^3/uL (4.0-10.0)
[2021-01-05 06:34] LABS: ALBUMIN 2.2 GM/DL (3.2-5.2); ALT/SGPT 22 U/L (12-78); BILIRUBIN,TOTAL 0.8 MG/DL (0.2-1.0); BLOOD UREA NITROGEN 17 MG/DL (7-18); CALCIUM LEVEL 7.5 MG/DL (8.8-10.2); CARBON DIOXIDE LEVEL 23 MEQ/L (21-32); CHLORIDE LEVEL 103 MEQ/L (98-107); CREATININE FOR GFR 0.89 MG/DL (0.70-1.30); GLOMERULAR FILTRATION RATE > 60.0 (>49); GLUCOSE, FASTING 117 MG/DL (70-100); LIPASE < 10 U/L (73-393); MAGNESIUM LEVEL 2.2 MG/DL (1.8-2.4); POTASSIUM SERUM 4.7 MEQ/L (3.5-5.1); SODIUM LEVEL 132 MEQ/L (136-145); TOTAL PROTEIN 4.4 GM/DL (6.4-8.2)
[2021-01-05] MEDS: BACITRACIN OINTMENT 30GM TUBE TOP SCH ×3 (09:00→21:00)
[2021-01-05] MEDS: OMEPRAZOLE 20 MG CAP PO SCH (09:34)
[2021-01-05] MEDS: MAGNESIUM OXIDE 400MG TAB (MAG-OX) PO SCH ×2 (09:34→20:55)
[2021-01-05] MEDS: TAMSULOSIN 0.4 MG CAP PO SCH (09:34)
[2021-01-05] MEDS: CREON-12 CAPSULE PO SCH ×3 (09:34→18:19)
[2021-01-05] MEDS: MIDODRINE 5 MG TAB PO SCH ×3 (09:34→16:17)
[2021-01-05] MEDS: TRIAMCINOLONE ACET 0.1% OINTMENT 80 GM TOP SCH ×2 (09:35→20:55)
[2021-01-05] MEDS: SODIUM CHLORIDE 0.9% INJ 10 ML SYR IV PRN (10:56)
--- NOTE | 2021-01-05 11:14 | IPN ---
PROGRESS NOTE DATE: 01/05/2021 SUBJECTIVE: Massimo is seen [facility], long complicated hospitalization. He is typically followed by Dr. Ortiz for his endstage liver disease status post Whipple procedure with cirrhosis, recurrent ascites, usually getting frequent paracenteses, it looks like about every 10 days on average. On this hospitalization, he was in septic shock, possible intraabdominal infection, E. coli on blood culture, required repeated albumin infusions and IV Levophed. He was in some hepatorenal syndrome on admission, renal function is back to baseline. He has C. Difficile colitis on p.o. Vancomycin. He has acute urinary retention and has a Rivera catheter in. He would like to have this removed but has some issues associated with this that will be discussed below. He is still on IV Zosyn. He tells me that he had a paracentesis yesterday and feels better since then. There is no report of that in the chart but he has no significant abdominal distention so I have to think that he probably did have one done. OBJECTIVE: VITAL SIGNS: Afebrile. Vital signs are stable; blood pressure 100/68. LUNGS: Clear. HEART: Regular rhythm. ABDOMEN: Soft. Only a small amount of ascites, nondistended and nontender. EXTREMITIES: No cyanosis. Trace peripheral edema. LABORATORY DATA: Sodium 132, potassium 4.7, BUN 17, creatinine is 0.8, glucose is 117, white count is 6.5, hemoglobin is 8.7, platelets 128,000. INR 1.3. IMPRESSION: 1. C. Difficile colitis. He is on p.o. Vancomycin and his stool was firming up. 2. Decompensated non-alcoholic liver cirrhosis. Will try to find out whether he actually had a paracentesis yesterday. I suspect he did based on his exam, do not have a report back yet. 3. E. coli bacteremia. He is on IV Zosyn which will continue until he is closer to discharge. 4. Acute kidney injury, this is resolved with tenriism of his circulation from septic shock. 5. Status post Whipple procedure. He is on Pancrelipase and insulin coverage. 6. Acute urinary retention. He has a history of BPH, he has a catheter in, will try to remove this today. He wanted a bladder scan done prior to allowing the nurse to remove his catheter but there is not much they are going to see with the bladder evacuated from the Rivera catheter. The nursing staff will discuss this with him.
[2021-01-05 14:00] VITALS: BP 102/65
[2021-01-05] MEDS: RAMELTEON 8 MG TAB (ROZEREM) PO PRN (21:12)
[2021-01-05 22:00] VITALS: BP 105/63
[2021-01-06] MEDS: VANCOMYCIN ORAL SOL 250MG/5ML ORAL SYRINGE PO SCH ×4 (00:27→18:19)
[2021-01-06] MEDS: PIPERACILLIN/TAZOBACTAM SOD 3.375 GM in D5W MINI-BAG PLUS 50 ML IV SCH ×4 (02:49→20:27)
[2021-01-06 06:00] VITALS: BP 102/66
[2021-01-06] MEDS: SODIUM CHLORIDE 0.9% INJ 10 ML SYR IV SCH ×3 (06:09→21:50)
[2021-01-06 06:29] LABS: HEMOGLOBIN 8.9 g/dl (13.5-17.5); MEAN CORPUSCULAR HEMOGLOBIN 31.7 pg (27.0-33.0); MEAN CORPUSCULAR VOLUME 96.1 fl (80.0-96.0); PLATELET COUNT, AUTOMATED 153 10^3/uL (150-450); RED BLOOD COUNT 2.81 10^6/uL (4.30-6.10); WHITE BLOOD COUNT 7.4 10^3/uL (4.0-10.0)
[2021-01-06 06:59] LABS: ALBUMIN 2.2 GM/DL (3.2-5.2); ALT/SGPT 25 U/L (12-78); BILIRUBIN,TOTAL 1.1 MG/DL (0.2-1.0); BLOOD UREA NITROGEN 16 MG/DL (7-18); CALCIUM LEVEL 7.4 MG/DL (8.8-10.2); CARBON DIOXIDE LEVEL 22 MEQ/L (21-32); CHLORIDE LEVEL 102 MEQ/L (98-107); CREATININE FOR GFR 0.89 MG/DL (0.70-1.30); GLOMERULAR FILTRATION RATE > 60.0 (>49); GLUCOSE, FASTING 116 MG/DL (70-100); LIPASE < 10 U/L (73-393); MAGNESIUM LEVEL 2.1 MG/DL (1.8-2.4); POTASSIUM SERUM 4.6 MEQ/L (3.5-5.1); SODIUM LEVEL 131 MEQ/L (136-145); TOTAL PROTEIN 4.7 GM/DL (6.4-8.2)
[2021-01-06] MEDS: BACITRACIN OINTMENT 30GM TUBE TOP SCH ×2 (09:00→20:29)
[2021-01-06] MEDS: MIDODRINE 5 MG TAB PO SCH ×3 (09:37→16:21)
[2021-01-06] MEDS: TAMSULOSIN 0.4 MG CAP PO SCH (09:37)
[2021-01-06] MEDS: OMEPRAZOLE 20 MG CAP PO SCH (09:37)
[2021-01-06] MEDS: CREON-12 CAPSULE PO SCH ×3 (09:37→18:19)
[2021-01-06] MEDS: MAGNESIUM OXIDE 400MG TAB (MAG-OX) PO SCH ×2 (09:37→20:27)
[2021-01-06] MEDS: TRIAMCINOLONE ACET 0.1% OINTMENT 80 GM TOP SCH ×2 (09:38→20:28)
--- NOTE | 2021-01-06 10:19 | IPN ---
PROGRESS NOTE DATE: 01/06/2021 SUBJECTIVE: Massimo feels well, stool is firming, we did not take his Rivera catheter out yesterday. We had a good discussion with the nurses about doing this, it was mid afternoon, I wanted a urologist available should he have acute urinary retention. I suspected yesterday the patient did have a paracentesis just before admission. OBJECTIVE: VITAL SIGNS: Stable. Afebrile. LUNGS: Clear. HEART: Regular rhythm. ABDOMEN: Soft, some ascites present. Rivera catheter is in place. EXTREMITIES: Trace peripheral edema. Moves arms and legs with equal strength. LABORATORY DATA: CBC is unremarkable. Hemoglobin is stable at 8.9. Sodium is stable at 132, electrolytes are unremarkable. IMPRESSION: 1. C. Difficile colitis. He is on oral Vancomycin. Stool was firming up. He is responding to this. 2. Decompensated nonalcoholic cirrhosis. He had a paracentesis just before admission as well as yesterday. He gets these about every 10 days. 3. E. coli bacteremia. He is still on IV Zosyn. Will continue this until closer to discharge. 4. Acute kidney injury, this is resolved. 5. Acute urinary retention, history of BPH. We will remove the catheter today, try and get him out of bed and promote movement to reduce risk of acute urinary retention.
[2021-01-06 14:00] VITALS: BP 97/65
[2021-01-06 19:45] VITALS: BP 103/66
[2021-01-07] MEDS: VANCOMYCIN ORAL SOL 250MG/5ML ORAL SYRINGE PO SCH ×3 (00:28→12:11)
[2021-01-07] MEDS: PIPERACILLIN/TAZOBACTAM SOD 3.375 GM in D5W MINI-BAG PLUS 50 ML IV SCH ×3 (02:17→14:00)
[2021-01-07] MEDS: SODIUM CHLORIDE 0.9% INJ 10 ML SYR IV SCH ×2 (05:42→14:00)
[2021-01-07 06:00] VITALS: BP 103/65
[2021-01-07] MEDS: BACITRACIN OINTMENT 30GM TUBE TOP SCH (09:00)
[2021-01-07] MEDS: OMEPRAZOLE 20 MG CAP PO SCH (09:14)
[2021-01-07] MEDS: TAMSULOSIN 0.4 MG CAP PO SCH (09:14)
[2021-01-07] MEDS: CREON-12 CAPSULE PO SCH ×2 (09:14→12:11)
[2021-01-07] MEDS: MIDODRINE 5 MG TAB PO SCH ×2 (09:14→12:11)
[2021-01-07] MEDS: MAGNESIUM OXIDE 400MG TAB (MAG-OX) PO SCH (09:14)
[2021-01-07] MEDS: TRIAMCINOLONE ACET 0.1% OINTMENT 80 GM TOP SCH (09:15)
[2021-01-07] MEDS ORDERED: FLOM0.4C39 PO (11:15)
[2021-01-07] MEDS ORDERED: CEPH500C PO (11:15)
[2021-01-07] MEDS ORDERED: FIRV50SO PO (11:15)
--- NOTE | 2021-01-07 13:30 | DSES ---
DISCHARGE SUMMARY DATE OF ADMISSION: 12/30/2020 DATE OF DISCHARGE: 01/07/2021 PRINCIPAL DIAGNOSIS: C. difficile colitis. SECONDARY DIAGNOSES: 1. E. coli bacteremia. 2. Decompensated nonalcoholic cirrhosis with recurrent ascites requiring intermittent paracentesis. 3. Acute kidney injury. 4. Acute urinary retention requiring Rivera catheter drainage. 5. Status post Whipple procedure with secondary diabetes. HISTORY: Patient was admitted with nausea, vomiting, and diarrhea. Had a complicated medical history summarized earlier in his hospitalization. HOSPITAL COURSE: He grew out E. coli on blood culture. He was treated with IV antibiotics and was on Zosyn. Developed diarrhea. He has had a history of C. difficile colitis. C. difficile was isolated again. He was started on vancomycin. He had firming of the stools. They were still loose intermittently, but he attributes this to the dosing of his Zosyn which we are discontinuing today. He is insisting on discharge. He thinks he can control his stooling sufficiently if his Zosyn is discontinued. He had acute kidney injury, resolved with albumin replacement. He underwent paracentesis which he has periodically for palliation, and this remained stable while he was here. PHYSICAL EXAMINATION: GENERAL: On the day of discharge, he is resting comfortably. He is insisting on going home. He is alert, conversant, no distress. VITAL SIGNS: His BP is 103/65. He is afebrile. Pulse 74. Respiratory rate 16, 97% O2 saturation. LUNGS: Clear. HEART: Regular rhythm. ABDOMEN: Soft, nontender. No CVA tenderness. EXTREMITIES: No peripheral edema. LABORATORY DATA: Blood culture grew out E. coli. Sensitivities were noted. GI panel on 12/31 showed C. difficile. Today white count is 7.4, hemoglobin 8.9, platelets 153. Sodium 131, potassium 4.6, BUN 16, creatinine 0.8, glucose 116, albumin 2.2. MRSA screen was negative. COVID screen was negative. INR was 1.36. Paracentesis on 01/04 for 7500 mL total. DISPOSITION: He was discharged home in improved and stable condition. He says he can manage his loose stool if he is not on the Zosyn. He has completed nine days of IV antibiotic. Will give him Keflex for one more day based upon sensitivity to cefazolin and that will complete 10 days of antibiotics. Will continue the vancomycin for two more weeks. He will follow up with his primary care provider at the [facility] within a week. Activity as tolerated. Diet is lactose free, 2 gram sodium, 1800 mL per day fluid restriction. MEDICATIONS ON DISCHARGE: 1. Aspirin 81 mg daily. 2. Vitamin D 1,000 units daily. 3. Furosemide 40 mg b.i.d. 4. Lactulose 30 mL t.i.d. 5. Mag-Ox 400 mg b.i.d. 6. Omeprazole 20 mg daily. 7. Spironolactone 100 mg b.i.d. 8. Bactrim DS tablet one daily. 9. Tamsulosin 0.4 mg daily. (Patient had acute urinary retention during the hospitalization, and Rivear catheter had to be placed. Was removed yesterday, and he is voiding small frequent amounts but is sufficiently emptying his bladder upon discharge.) 10. Vancomycin 250 mg q.i.d. for two more weeks. 11. Keflex 500 mg t.i.d. for one more day to complete a 10 day course of antibiotic therapy. At the time of this dictation, there are no pending labs.
[2021-01-07 14:00] VITALS: BP 105/69
--- NOTE | 2021-01-10 21:51 | REP ---
INDICATION: ascites. COMPARISON: None. TECHNIQUE: The procedure was performed under the direct supervision of Dr. Kern. The risks and benefits of the procedure were explained to the patient and informed consent was obtained. The largest pocket of fluid was localized in the right flank using ultrasound guidance. The skin was prepped and draped in a sterile fashion. 5 mL of 1% lidocaine was used as a local anesthetic. An 8-Sami multi side-hole catheter was inserted using trocar technique.7500 mL of cloudy yellow fluid was withdrawn and discarded. Estimated blood loss: Less than 1 mL The patient tolerated the procedure well and there were no immediate complications. After the appropriate amount of monitored convalescence, the patient was discharged from the department. FINDINGS: None IMPRESSION: Ultrasound-guided paracentesis [id number] mL of cloudy yellow fluid. <Electronically signed by David Peter > 01/04/21 [id number] <Electronically signed by Eleno Kern > 01/10/21 [id number]
== END 2021-01-07 16:26 | disposition home health service (06) | DRG 710 ==
LOC: M ED 16:13 → M ED INP 19:28 → ENRESERV 20:44 → M PCU 22:09 → M ICU 12-31 02:15 → M PCU 01-01 09:23 → M MSPAV 01-02 18:34
PROVIDERS: ADMIT Internal Medicine; ATTEND Family Medicine
PROC: 30233J1 Transfusion of Nonautologous Serum Albumin into Peripheral Vein, Percutaneous Approach (ICD-10-PCS; 2020-12-30)
PROC: 02HV33Z Insertion of Infusion Device into Superior Vena Cava, Percutaneous Approach (ICD-10-PCS; principal; 2020-12-31)
PROC: 0W9G3ZX Drainage of Peritoneal Cavity, Percutaneous Approach, Diagnostic (ICD-10-PCS; 2020-12-31)
DX: A41.59 Other Gram-negative sepsis (principal); R65.21 Severe sepsis with septic shock; K76.7 Hepatorenal syndrome; N17.9 Acute kidney failure, unspecified; A04.72 Enterocolitis due to Clostridium difficile, not specified as recurrent; E87.2 Acidosis; R18.8 Other ascites; D69.6 Thrombocytopenia, unspecified; E87.1 Hypo-osmolality and hyponatremia; E87.5 Hyperkalemia; K74.60 Unspecified cirrhosis of liver; E78.5 Hyperlipidemia, unspecified; I10 Essential (primary) hypertension; R33.9 Retention of urine, unspecified; M48.061 Spinal stenosis, lumbar region without neurogenic claudication; N40.1 Benign prostatic hyperplasia with lower urinary tract symptoms; E11.9 Type 2 diabetes mellitus without complications; K21.9 Gastro-esophageal reflux disease without esophagitis; Z20.822 Contact with and (suspected) exposure to COVID-19; Z79.82 Long term (current) use of aspirin; Z79.899 Other long term (current) drug therapy; Z85.07 Personal history of malignant neoplasm of pancreas; Z86.010 Personal history of colon polyps; Z86.711 Personal history of pulmonary embolism; Z92.21 Personal history of antineoplastic chemotherapy

== ENCOUNTER 2021-01-12 05:24 | Inpatient (IN) | payer BC ==
[2021-01-12] VITALS (20 sets, daily range): BP systolic 80–111; BP diastolic 48–61
[~2021-01-12] VITALS: Ht 170.2 cm; Wt 69.7 kg
[~2021-01-12 05:24] MED LIST changes: +CEPH500C PO; +FIRV50SO PO; +FLOM0.4C39 PO
[2021-01-12 05:56] LABS: BASO % 0.2 % (0.0-1.0); EOS # 0.1 10^3/uL (0.0-0.5); EOS % 0.5 % (0.0-3.0); HEMATOCRIT 33.1 % (42.0-52.0); HEMOGLOBIN 11.2 g/dl (13.5-17.5); LYMPH # 0.5 10^3/uL (1.5-5.0); LYMPH % 2.5 % (24.0-44.0); MEAN CORPUSCULAR HEMOGLOBIN 32.7 pg (27.0-33.0); MEAN CORPUSCULAR HGB CONC 33.8 g/dl (32.0-36.5); MEAN CORPUSCULAR VOLUME 96.5 fl (80.0-96.0); MONO # 0.7 10^3/uL (0.0-0.8); MONO % 3.6 % (2.0-8.0); NEUTROPHILS # 17.2 10^3/uL (1.5-8.5); NEUTROPHILS % 92.7 % (36.0-66.0); PLATELET COUNT, AUTOMATED 185 10^3/uL (150-450); RED BLOOD COUNT 3.43 10^6/uL (4.30-6.10); WHITE BLOOD COUNT 18.5 10^3/uL (4.0-10.0)
[2021-01-12] MEDS ORDERED: ONDANSETRON 4MG/2ML VIAL IV ONE (06:00)
[2021-01-12 06:13] LABS: INR 1.31; PROTHROMBIN TIME 16.7 SECONDS (12.7-14.5)
[2021-01-12 06:14] LABS: PARTIAL THROMBOPLASTIN TIME 35.6 SECONDS (25.9-37.0)
[2021-01-12 06:27] LABS: ALBUMIN 2.8 GM/DL (3.2-5.2); BILIRUBIN,DIRECT 0.7 MG/DL (0.0-0.2); BILIRUBIN,TOTAL 1.7 MG/DL (0.2-1.0); CALCIUM LEVEL 8.4 MG/DL (8.8-10.2); CREATININE FOR GFR 1.98 MG/DL (0.70-1.30); GLOMERULAR FILTRATION RATE 36.5 (>49); POTASSIUM SERUM 6.3 MEQ/L (3.5-5.1); TOTAL PROTEIN 5.8 GM/DL (6.4-8.2)
[2021-01-12] MEDS: NS 500 ML IV ONE ×2 (06:55→07:20)
[2021-01-12] MEDS ORDERED: CALCIUM GLUCONATE 1,000 MG in D5W MINI-BAG PLUS 100 ML IV ONE (06:55)
[2021-01-12] MEDS ORDERED: SOD POLYSTYRENE SULFONATE SUSP 15 GM/60 ML UD PO ONE (06:55)
[2021-01-12] MEDS ORDERED: cefTRIAXone SOD 2 GM in D5W MINI-BAG PLUS 50 ML IV ONE (07:05)
[2021-01-12] MEDS ORDERED: ACETAMINOPHEN TAB 650MG DOSE (2X325MG) PO ONE (07:25)
[2021-01-12] MEDS ORDERED: NS 2,390 ML in IV 1 EA IV ONE (07:35)
--- NOTE | 2021-01-12 07:41 | REPVR ---
PROCEDURE INFORMATION: Exam: XR Chest Exam date and time: 01/12/2021 6:12 AM Age: 65 years old Clinical indication: Fever TECHNIQUE: Imaging protocol: XR of the chest. Views: 1 view. COMPARISON: CR PORTABLE CHEST X-RAY 12/31/2020 3:30 AM FINDINGS: Tubes, catheters and devices: Central line has been removed. Overlying EKG leads. Lungs: Lung volumes remain low with stable elevation of the right hemidiaphragm. Mild bilateral subsegmental atelectasis and/or scar. No consolidation. Pleural spaces: No significant pleural effusions. No pneumothorax. Heart/Mediastinum: Cardiac size is normal and mediastinal contour stable. Bones/joints: Bones are stable. IMPRESSION: Hypoventilatory change with mild subsegmental atelectasis and/or scar. No consolidation. No significant change. Electronically signed by: Robles Johnson On 01/12/2021 07:41:14 AM
[2021-01-12] MEDS ORDERED: HumuLIN R (REGULAR) INSULIN (NovoLIN R) **100U/ML** PER UNIT IV STA ×2 (08:16→19:26)
[2021-01-12] MEDS ORDERED: DEXTROSE 50% 50 ML SYRINGE IV STA ×2 (08:16→19:26)
[2021-01-12] MEDS ORDERED: TAMS1CAP17 PO (08:33)
[2021-01-12] MEDS ORDERED: VANC125C10 PO (08:33)
[2021-01-12] MEDS ORDERED: HOME MED LIST COMPLETE! XX SCH (08:35)
[2021-01-12] MEDS ORDERED: VANCOMYCIN HCL 750 MG, VIAL MATE ADAPTER 1 EACH in NS 250 ML IV SCH (11:00)
[2021-01-12] MEDS ORDERED: VANCOMYCIN HCL 750 MG, VIAL MATE ADAPTER 1 EACH in NS 250 ML IV ONE ×3 (11:15→14:00)
--- NOTE | 2021-01-12 11:15 | HPEPDOC ---
General Date of Admission 01/12/21 Date of Service: Jan 12, 2021 Chief Complaint "Chills" History of Present Illness 65-year-old male with a past medical history of pancreatic carcinoma (status post Whipple procedure), nonalcoholic cirrhosis, and hypertension presented to the emergency department with complaints of chills. He reports waking up at approximately 3 AM on 01/12 having chills and rigors. He had no associated/specific pain that he described. He was recently discharged on 01/07 for which she was treated for E. coli bacteremia and C. difficile. Presently, he endorses having a distended abdomen which is secondary to his cirrhosis. He receives therapeutic paracentesis biweekly for this, which he is due for on 01/13. He also endorses having 5-6 stools that are semiformed; which he believes are 2/2 to " a liquid" for his cirrhosis he takes 3 times a day. He continues to make urine (although he measures his output, he is unable to provide significant numbers). The last time he was hospitalized there was concerns for urinary retention. Denies dysuria and hematuria. He denies chest pain, shortness of breath, abdominal pain, nausea, and vomiting. Home Medications Scheduled Aspirin (Aspirin EC) 81 Mg Tablet.dr, 81 MG PO DAILY, (Reported) Cholecalciferol (Vitamin D3) (Vitamin D3) 1,000 Unit Tablet, 1,000 UNITS PO DAILY, (Reported) Furosemide (Furosemide) 40 Mg Tablet, 40 MG PO BID, (Reported) Lactulose (Constulose) 10 Gm/15 Ml Solution, 30 ML PO TID, (Reported) MORNING/DINNER/BEDTIME Magnesium Oxide (Magnesium Oxide) 400 Mg Tablet, 400 MG PO BID, (Reported) Omeprazole (Omeprazole) 20 Mg Capsule.dr, 20 MG PO DAILY, (Reported) Spironolactone (Spironolactone) 100 Mg Tablet, 100 MG PO BID, (Reported) Sulfamethoxazole/Trimethoprim (Bactrim Ds Tablet) 1 Each Tablet, 1 TAB PO DAILY, (Reported) Tamsulosin Hcl (Tamsulosin HCl) 0.4 Mg Capsule, 0.4 MG PO DAILY, (Reported) Vancomycin HCl (Vancomycin HCl) 125 Mg Capsule, 250 MG PO Q6H, (Reported) 0000/0600/1200/1800 Allergies Coded Allergies: No Known Allergies (Unverified , 8/27/18) Past Medical History Medical History See HPI Surgical History 1. Whipple's procedure 2. Colonoscopy with polypectomy 3. Right knee surgery Social History * Smoker: former Smoker Alcohol: Denies Drugs: denies Lives at home with his . A-FIB/CHADSVASC A-FIB History Current/History of A-Fib/PAF?: No Review of Systems Other systems 10 point review of system is negative except for what is noted in the HPI Physical Examination Other physical findings General: Lying in bed, no acute distress Head/Neck/Throat: Trachea midline, mucous membranes moist Eyes: Sclera anicteric, no erythema or discharge appreciated bilaterally Thorax: Bibasal inspiratory crackles Cardiovascular: Normal rate, regular rhythm, normal S1, S2; no S3, S4, rubs/gallops/murmurs Abdomen: Bowel sounds are present, distended abdomen, no tenderness appreciated with palpation Genitourinary: No CVA tenderness, no Rivera in place Musculoskeletal: Moving all extremities, no edema Skin: Warm, dry Neurologic: AAOx3, speech fluent and goal-directed, no focal deficits, grossly intact Vital Signs Vital Signs Date Time Temp Pulse Resp B/P (MAP) Pulse Ox O2 Delivery O2 Flow Rate FiO2 01/12/21 06:39 109 92 01/12/21 06:09 22 Room Air 01/12/21 05:44 101.8 114/56 (75) Laboratory Data Labs 24H Laboratory Tests 2 01/12/21 05:41: Immature Granulocyte % (Auto) 0.5, Neutrophils (%) (Auto) 92.7H, Lymphocytes (%) (Auto) 2.5L, Monocytes (%) (Auto) 3.6, Eosinophils (%) (Auto) 0.5, Basophils (%) (Auto) 0.2, Neutrophils # (Auto) 17.2H, Lymphocytes # (Auto) 0.5L, Monocytes # (Auto) 0.7, Eosinophils # (Auto) 0.1, Basophils # (Auto) 0.0, Nucleated Red Blood Cells % (auto) 0.0, Prothrombin Time 16.7H, Prothromb Time International Ratio 1.31, Activated Partial Thromboplast Time 35.6, Anion Gap 8, Glomerular Filtration Rate 36.5L, Lactic Acid Level 3.6*H, Calcium Level 8.4L, Total Bilirubin 1.7H, Direct Bilirubin 0.7H, Aspartate Amino Transf (AST/SGOT) 66H, Alanine Aminotransferase (ALT/SGPT) 43, Alkaline Phosphatase 163H, Ammonia 16, Total Protein 5.8L, Albumin 2.8L, Albumin/Globulin Ratio 0.9, Lipase 12L CBC/BMP Laboratory Tests 01/12/21 05:41 Microbiology Microbiology 01/12/21 Respiratory Virus Panel (PCR) (ALONDRA) - Final, Complete 01/12/21 Blood Culture, Received Pending 01/12/21 Blood Culture, Received Pending Assessment/Plan #Sepsis -Unclear etiology at this time. Possible UTI (hx of retention), c.diff, and/or SBP. -Received 30cc/kg fluid. Continue maintenance fluids for now. With hx of cirrhosis expect low normal. -Obtain UA (not allowing catheterization), c.diff, urine cx, paracentesis fluid cx, and blood cx. -Initial lactic acid level, trend. -Continue with ceftriaxone for now. #KAILEE -Pre-renal azotemia. Reports loose stools and poor po intake. Continue with IVF. Avoid nephrotoxic medications -Renal ultrasound ordered to rule out hydronephrosis. -Renal rec. appreciated. #Electrolyte abnormality -Hyperkalemia - temp measures give. Repeat BMP ordered. #Cirrhosis -Therapeutic and diagnostic centesis has been ordered for today. -We'll hold furosemide and spironolactone in the setting of his renal failure. #Hx of urinary retention -Not allowing Rivera. Continue with tamsulosin. He is making urine, have asked for him to see if some for us to send of studies. #DVT ppx -Heparin subq 45 minutes of critical care time spent on patient. Plan / VTE VTE Prophylaxis Ordered?: Yes SIMIN TAVERAS M.D. Jan 12, 2021 08:35
[2021-01-12] MEDS ORDERED: VANCOMYCIN HCL 500 MG in D5W MINI-BAG PLUS 100 ML IV SCH (12:00)
[2021-01-12] MEDS ORDERED: NS 1,000 ML IV ONE (12:00)
--- NOTE | 2021-01-12 12:13 | REP ---
INDICATION: KAILEE. COMPARISON: CT 12/30/2020, ultrasound 10/22/2020. TECHNIQUE: Real-time sonographic evaluation of the kidneys is performed. FINDINGS: Renal cortical echogenicity pattern is normal bilaterally and contours are smooth. There is no hydronephrosis bilaterally. There is a 1.1 cm cyst of the lower pole the left kidney. The right kidney measures 10.1 x 6.7 x 5.2 cm. Left renal dimensions are 10.8 x 4.7 x 5.6 cm. Urinary bladder is minimally distended and not well evaluated. Ascites is incidentally noted. The patient is undergoing paracentesis. IMPRESSION: No hydronephrosis. <Electronically signed by Eleno Kern > 01/12/21 1210
[2021-01-12 13:09] LABS: APPEARANCE, BODY FLUID TURBID (CLEAR); ASCITES FL COLOR PALE YELLOW (COLORLESS); SOURCE, BODY FLUID ASCITES
[2021-01-12] MEDS: ASPIRIN 81MG ENTERIC TABLET PO SCH (13:28)
[2021-01-12] MEDS: TAMSULOSIN 0.4 MG CAP PO SCH (13:28)
[2021-01-12] MEDS: OMEPRAZOLE 20 MG CAP PO SCH (13:28)
[2021-01-12] MEDS: NS 1,000 ML IV SCH ×2 (13:29→16:30)
[2021-01-12] MEDS: HEPARIN SOD (PORCINE) 5000UNITS/ML 1ML VIAL/SYRINGE SQ SCH ×2 (13:34→21:45)
[2021-01-12 13:40] LABS: SOURCE, BODY FLUID ALBUMIN ASCITES; SOURCE, BODY FLUID GLUCOSE ASCITES; SOURCE, BODY FLUID TOT PROTEIN ASCITES; TOTAL PROTEIN, BODY FLUID 0.8 G/DL (NOT ESTABLISHED)
[2021-01-12 14:10] LABS: CALCIUM LEVEL 7.5 MG/DL (8.8-10.2); CREATININE FOR GFR 1.9 MG/DL (0.70-1.30); GLOMERULAR FILTRATION RATE 38.3 (>49); MAGNESIUM LEVEL 2.1 MG/DL (1.8-2.4); PHOSPHORUS LEVEL 4.4 MG/DL (2.5-4.9)
--- NOTE | 2021-01-12 15:51 | ECGEPIP ---
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
--- NOTE | 2021-01-12 16:28 | REP ---
INDICATION: therapeutic/diagnostic. COMPARISON: None. TECHNIQUE: The procedure was performed under the direct supervision of Dr. Kern. The risks and benefits of the procedure were explained to the patient and informed consent was obtained. The largest pocket of fluid was localized in the left lower quadrant using ultrasound guidance. The skin was prepped and draped in a sterile fashion. 6 mL of 1% lidocaine was used as a local anesthetic. An 8-Cymraes multi side-hole catheter was inserted using trocar technique.8700 mL of cloudy yellow fluid was withdrawn with a sample sent to the lab for analysis. Estimated blood loss: Less than 1 mL The patient tolerated the procedure well and there were no immediate complications. After the appropriate amount of monitored convalescence, the patient was discharged from the department. FINDINGS: None IMPRESSION: Ultrasound-guided paracentesis [id number] mL of cloudy yellow fluid. <Electronically signed by David Peter > 01/12/21 1600 <Electronically signed by Eleno Kern > 01/12/21 [id number]
--- NOTE | 2021-01-12 18:25 | CR.PDOC ---
General Date of Consultation: Jan 12, 2021 Referring Provider: SIMIN TAVERAS M.D. Attending Physician: JOHANN SANTIAGO MD Consultation REASON FOR CONSULTATION/CHIEF COMPLAINT: Acute kidney injury Hyperkalemia . HISTORY OF PRESENT ILLNESS:This is a 65 y/o male with a past medical history of hld, htn, pe, pancreatic ca s/p whipple, cirrhosis, bph, diabetes mellitus type2 who presents to the ED for chief complaints of chills and generally not feeling well. Pt was found to have met the Sepsis criteria with leucocytosis 18.1, hypotension , tachycardia of 113,lactic acidosis. Pt was started on I/v fluids at 30 cc/mg/kg and on further review of labs was found to be in KAILEE and hyperkalemic. Due to his complicated history of hepatorenal syndrome Nephrology was consulted for management of KAILEE (possible hepatorenal syndrome) and hyperkalemia. ALLERGIES: Please see below. HOME MEDICATIONS: Please see below. PAST MEDICAL HISTORY: 1. Pancreatic carcinoma s/p Whipples procedure 2. Cirrhosis unspecified 3. Hepatorenal syndrome PAST SURGICAL HISTORY: 1. Whipple's procedure 2. Colonoscopy with polypectomy 3. Right knee surgery FAMILY HISTORY:Unremarkable or not pertinent Hereditary Diseases: None Unexpected deaths due to medical reasons: None SOCIAL HISTORY: Tobacco use:former smoker- quit >15 years ago ETOH: Former Illicit drug use: Denies IV drug use: Denies REVIEW OF SYSTEMS: CONSTITUTIONAL: Denies any fevers, loss of appetite, weight loss HEENT: Denies a sore throat/ runny nose / vision changes. CARDIOVASCULAR: Denies chest pain/ palpitations RESPIRATORY: Denies any SOB or cough GENITOURINARY: Denies polyuria or dysuria. Reports oliguria MUSCULOSKELETAL: Denies muscle aches and pains GASTROINTESTINAL: Denies nausea/ vomiting/constipation. Reports diarrhea SKIN: Denies any rash/ bleeding / bruising NEUROLOGICAL: Denies paraesthesias/ numbness PSYCHIATRIC: Denies tearful episodes/ anxiety ENDOCRINE: Denies polyuria/ polydipsia HEMATOLOGIC/LYMPHATIC:Denies bleeding/ bruising. PHYSICAL EXAMINATION: VITAL SIGNS: Please see below. GENERAL APPEARANCE: Pt looks frail, pale but not in any acute distress lying in bed comfortably HEENT:Atraumatic, Normocephalic, PERRLA, EOMI, moist mucous membranes RESPIRATORY: Clear to auscultation B/l , No wheezing or rubs CARDIOVASCULAR: Regular rate and rhythm, Heart sounds normal, No murmurs or gallops heard ABDOMEN: Distended (Ascitic), tense, tender in all quadrants. A big midline incision seen from previous whipples procedure EXTREMITIES: Grade 2+ pedal edema extending all the way up to his thighs. sacral edema present NEUROLOGICAL: Grade 5/5 motor strength, sensations intact PSYCHIATRIC: Appropriate mood or affect LABORATORY DATA: Please see below. ASSESSMENT/PLAN: 1. Acute kidney injury secondary to diuretics versus sepsis versus Hepatorenal syndrome Type 1: -Patient has a history of liver cirrhosis presents with a septic picture today and is on chronic diuretics-very likely a multifactorial KAILEE. -Creatinine levels of 1.90 and GFR of 38.3. Baseline is 1.0. Almost two fold rise in creatinine. -Patient has been started on isotonic normal saline 30 mg/kg/hr and IV antibiotics in the ED. -We stopped the patient's diuretics temporarily. -Patient was offered catheterization but he blatantly refused a Rivera's catheter being placed. -Will try to monitor urinary output through I's and O's -Continue with Tamsulosin for improved stream. -Will follow GFR closely . -For the ascites, pt underwent paracentesis where 8700 ml of fluid was removed. The fluid looked yellowish with no evidence of SBP on peritoneal fluid analysis. 2. Hyperkalemia secondary to hepatorenal syndrome versus chronic spironolactone use: -Potassium of 6 meq/ml. -Stopped patient's spironolactone. -Patient was given Kayexalate. -However no requirement for hemodialysis at this time as we are anticipating an improvement in his potassium levels by holding medications and IV fluids. 3.Cirrhosis with Ascites: -Most likely the source of sepsis is spontaneous bacterial peritonitis- because of his history of SBP recently on December 30, 2020. -Patient will require paracentesis with peritoneal fluid analysis for SBP. -Paracentesis was done later in the afternoon -8700 ml were drained off the pt. -Peritoneal fluids analysis ruled out SBP. 91 neutrophils. -Patient is already on IV antibiotics. -We will be giving the patient 25 mg of albumin every 8 hours -Consent was got from the patient for blood products. 4.Hypotension secondary to sepsis vs fluid removal via paracentesis : -Pt is on I/v fluids . -So far fluid responsive. -If continues to be hypotensive vasopressors may be indicated. Vital Signs/I&O Vital Signs Date Time Temp Pulse Resp B/P (MAP) Pulse Ox O2 Delivery O2 Flow Rate FiO2 01/12/21 10:30 100 109/59 (76) 96 Room Air 01/12/21 10:15 98.1 16 Laboratory Data Labs 24H Laboratory Tests 2 01/12/21 05:41: Immature Granulocyte % (Auto) 0.5, Neutrophils (%) (Auto) 92.7H, Lymphocytes (%) (Auto) 2.5L, Monocytes (%) (Auto) 3.6, Eosinophils (%) (Auto) 0.5, Basophils (%) (Auto) 0.2, Neutrophils # (Auto) 17.2H, Lymphocytes # (Auto) 0.5L, Monocytes # (Auto) 0.7, Eosinophils # (Auto) 0.1, Basophils # (Auto) 0.0, Nucleated Red Blood Cells % (auto) 0.0, Prothrombin Time 16.7H, Prothromb Time International Ratio 1.31, Activated Partial Thromboplast Time 35.6, Anion Gap 8, Glomerular Filtration Rate 36.5L, Lactic Acid Level 3.6*H, Calcium Level 8.4L, Total Biliru bin 1.7H, Direct Bilirubin 0.7H, Aspartate Amino Transf (AST/SGOT) 66H, Alanine Aminotransferase (ALT/SGPT) 43, Alkaline Phosphatase 163H, Ammonia 16, Total Protein 5.8L, Albumin 2.8L, Albumin/Globulin Ratio 0.9, Lipase 12L 01/12/21 10:35: CBC/BMP Laboratory Tests 01/12/21 05:41 Microbiology Microbiology 01/12/21 Respiratory Virus Panel (PCR) ([facility]ONDRA) - Final, Complete 01/12/21 Blood Culture, Received Pending 01/12/21 Blood Culture, Received Pending Allergies Coded Allergies: No Known Allergies (Unverified , 01/08/18) Home Medications Scheduled Aspirin (Aspirin EC) 81 Mg Tablet.dr, 81 MG PO DAILY, (Reported) Cholecalciferol (Vitamin D3) (Vitamin D3) 1,000 Unit Tablet, 1,000 UNITS PO DAILY, (Reported) Furosemide (Furosemide) 40 Mg Tablet, 40 MG PO BID, (Reported) Lactulose (Constulose) 10 Gm/15 Ml Solution, 30 ML PO TID, (Reported) MORNING/DINNER/BEDTIME Magnesium Oxide (Magnesium Oxide) 400 Mg Tablet, 400 MG PO BID, (Reported) Omeprazole (Omeprazole) 20 Mg Capsule.dr, 20 MG PO DAILY, (Reported) Spironolactone (Spironolactone) 100 Mg Tablet, 100 MG PO BID, (Reported) Sulfamethoxazole/Trimethoprim (Bactrim Ds Tablet) 1 Each Tablet, 1 TAB PO DAILY, (Reported) Tamsulosin Hcl (Tamsulosin HCl) 0.4 Mg Capsule, 0.4 MG PO DAILY, (Reported) Vancomycin HCl (Vancomycin HCl) 125 Mg Capsule, 250 MG PO Q6H, (Reported) 0000/0600/1200/1800 Attending Note Attending Note Pt was seen and examined with the resident today. Severe Sepsis (Hypotension, tachycardia,Leukocytosis, lactic acidosis, Fever) Acute Renal failure sec to sepsis and use of diuretics. Decompensated Cirrhosis with Ascites Hypovolemic hyponatremia Hyperkalemia Broad spectrum antibiotics. start albumin 25% IV Q 8 HR. IV fluid bolus according to sepsis protocol. Therapeutic and diagnostic tap done today. fluid WBC count not consistent with SBP. Stop diuretics for now. SPS already given in ER. Pt refused placement of Rivera. No urgent need of HD at this time. GME ATTESTATION GME ATTESTATION My faculty preceptor for this patient encounter was physically present during the encounter and was fully available. All aspects of the patient interview, examination, medical decision making process, and medical care plan development were reviewed and approved by the faculty preceptor. The faculty preceptor is aware and concurs with the plan as stated in the body of this note and will attest to such by his/her cosignature. Fan Swenson MD Jan 12, 2021 11:22 JOHANN SANTIAGO MD Jan 12, 2021 18:25
[2021-01-12 19:51] LABS: CLOSTRIDIUM DIFFICILE PCR NEGATIVE (NEGATIVE)
[2021-01-12 21:24] LABS: CREATININE FOR GFR 1.72 MG/DL (0.70-1.30)
[2021-01-12] MEDS: THIAMINE INJection 500 MG in NS 100 ML IV SCH (21:46)
[2021-01-12 22:52] LABS: CALCIUM LEVEL 6.9 MG/DL (8.8-10.2); CREATININE FOR GFR 1.65 MG/DL (0.70-1.30); GLOMERULAR FILTRATION RATE 45.1 (>49); POTASSIUM SERUM 4.9 MEQ/L (3.5-5.1)
[2021-01-12] MEDS ORDERED: CALCIUM CARBONATE 500 MG CHEW U/D PO ONE (23:50)
[2021-01-13] VITALS (27 sets, daily range): BP systolic 89–120; BP diastolic 53–80
[2021-01-13] MEDS: MEROPENEM INJ 1 GM in IV 1 EA IV SCH ×4 (00:29→23:13)
[2021-01-13] MEDS: NS 1,000 ML IV SCH (00:29)
[2021-01-13 03:23] LABS: CALCIUM LEVEL 7.3 MG/DL (8.8-10.2); CREATININE FOR GFR 1.55 MG/DL (0.70-1.30); GLOMERULAR FILTRATION RATE 48.5 (>49); POTASSIUM SERUM 4.9 MEQ/L (3.5-5.1)
[2021-01-13 05:52] LABS: HEMATOCRIT 23.3 % (42.0-52.0); MEAN CORPUSCULAR HEMOGLOBIN 32.4 pg (27.0-33.0); MEAN CORPUSCULAR HGB CONC 33.5 g/dl (32.0-36.5); MEAN CORPUSCULAR VOLUME 96.7 fl (80.0-96.0); RED BLOOD COUNT 2.41 10^6/uL (4.30-6.10)
[2021-01-13] MEDS: THIAMINE INJection 500 MG in NS 100 ML IV SCH ×3 (06:06→23:59)
[2021-01-13] MEDS: HEPARIN SOD (PORCINE) 5000UNITS/ML 1ML VIAL/SYRINGE SQ SCH ×3 (06:07→22:00)
--- NOTE | 2021-01-13 06:09 | IPNPDOC ---
Subjective Date Seen The patient was seen on 01/13/21. Subjective Chief Complaint/HPI Patient was seen and examined at bedside this morning. He reported feeling better and only complains of a postnasal drip. Overnight no acute events reported. His Other systems 10 point review of system was negative except for what is noted in the HPI Objective Physical Examination Other physical findings General: Lying in bed, no acute distress Head/Neck/Throat: Trachea midline, mucous membranes moist Eyes: Sclera anicteric, no erythema or discharge appreciated bilaterally Thorax: Bibasal inspiratory crackles Cardiovascular: Normal rate, regular rhythm, normal S1, S2; no S3, S4, rubs/gallops/murmurs Abdomen: Bowel sounds are present, abdomen is soft, no tenderness reported with palpation. Genitourinary: No CVA tenderness, no Rivera in place Musculoskeletal: Moving all extremities, no edema Skin: Warm, dry Neurologic: AAOx3, speech fluent and goal-directed, no focal deficits, grossly intact Assessment /Plan Assessment #Sepsis -Bacteremic -preliminary growing gram-negative rods. C. difficile was negative. SBP of low concern with cell count appreciated from time. -Hemodynamically remains stable. Lactic acid has down trended. -Antibiotics were uptitrated overnight, although ceftriaxone would also be covering gram-negative rods. We will adjust antibiotics according to sensitivities now. #Bacteremia -Await for speciation for antibiotics to be narrowed. #KAILEE -Pre-renal azotemia. Creatinine remains stable. -Avoid nephrotoxic medications -Renal ultrasound shows no signs of hydronephrosis. -Renal rec. appreciated. #Electrolyte abnormality -Hyperkalemia -resolved. #Cirrhosis -Paracentesis done on 01/12. Cell count not significant for SBP. -We'll hold furosemide and spironolactone in the setting of his renal failure. #Hx of urinary retention -Continue with tamsulosin. He is making urine, have asked for him to see if some for us to send of studies. #DVT ppx -Heparin subq 45 minutes of critical care time spent on patient. Dispo: Can be downgraded to med/surg. Plan/VTE VTE Prophylaxis Ordered?: Yes VS, I&O, 24H, Fishbone Vital Signs/I&O Vital Signs Date Time Temp Pulse Resp B/P (MAP) Pulse Ox O2 Delivery O2 Flow Rate FiO2 01/13/21 04:00 97.9 85 12 98/58 98 Room Air I&O- Last 24 Hours up to 6 AM 01/13/21 06:00 Intake Total 5862.0 ml Output Total 9100 ml Balance -3238.0 ml Laboratory Data 24H LABS Laboratory Tests 2 01/12/21 10:35: Lactic Acid Followup at 4 Hours 5.4*H 01/12/21 11:20: Body Fluid Source ASCITES, Body Fluid Color PALE YELLOW, Body Fluid Appearance TURBID, Body Fluid Specific [place] 1.010, Body Fluid WBC (Auto) 91H, Body Fluid RBC (Auto) 3, Body Fluid Mononuclear Cells % Auto 87.9H, Fluid Polymorphonuclear Cell % Auto 12.1H, Body Fluid Glucose Source ASCITES, Body Fluid Glucose 123, Body Fluid Protein Source ASCITES, Body Fluid Total Protein 0.8, Body Fluid Albumin Source ASCITES, Body Fluid Albumin 0.2 01/12/21 13:31: Anion Gap 10, Glomerular Filtration Rate 38.3L, Calcium Level 7.5L, Phosphorus Level 4.4, Magnesium Level 2.1 01/12/21 16:37: Urine Color YELLOW, Urine Appearance CLEAR, Urine pH 5.0, Urine Specific [place] 1.016, Urine Protein NEGATIVE, Urine Glucose (UA) NEGATIVE, Urine Ketones NEGATIVE, Urine Blood NEGATIVE, Urine Nitrite NEGATIVE, Urine Bilirubin NEGATIVE, Urine Urobilinogen 0.2, Urine Leukocyte Esterase NEGATIVE, Urine WBC (Auto) 2, Urine RBC (Auto) 2, Urine Hyaline Casts (Auto) 19, Urine Bacteria (Auto) NEGATIVE, Urine Squamous Epithelial Cells 0, Urine Mucus (Auto) SMALL, Urine Sperm (Auto) , Methicillin-Resist S.aureus DNA PCR NOT DETECTED 01/12/21 18:35: Clostridium difficile [id number] PRESUMPTIVE NEGATIVE, Clostridium difficile Toxin (PCR) NEGATIVE 01/12/21 20:01: Bedside Glucose (Misc Panel) 292H 01/12/21 20:45: Bedside Glucose (Misc Panel) 183H 01/12/21 20:49: Anion Gap 10, Glomerular Filtration Rate 43.0L, Calcium Level 7.0L 01/12/21 22:23: Anion Gap 8, Glomerular Filtration Rate 45.1L, Lactic Acid Level 4.7*H, Calcium Level 6.9L 01/13/21 02:53: Anion Gap 7L, Glomerular Filtration Rate 48.5L, Calcium Level 7.3L, Lactic Acid Followup at 4 Hours 2.2*H 01/13/21 05:36: CBC/BMP Laboratory Tests 01/12/21 13:31 01/12/21 20:49 01/12/21 22:23 01/13/21 02:53 Microbiology Microbiology 01/12/21 Gram Stain - Final, Resulted 01/12/21 Body Fluid Culture, Resulted Pending 01/12/21 Respiratory Virus Panel (PCR) (ALON[facility]A) - Final, Complete 01/12/21 Blood Culture - Preliminary, Resulted 01/12/21 Blood Culture - Preliminary, Resulted SIMIN TAVERAS M.D. Jan 13, 2021 06:09
[2021-01-13 06:17] LABS: CALCIUM LEVEL 7.3 MG/DL (8.8-10.2); CREATININE FOR GFR 1.42 MG/DL (0.70-1.30); GLOMERULAR FILTRATION RATE 53.6 (>49); MAGNESIUM LEVEL 2.1 MG/DL (1.8-2.4); PHOSPHORUS LEVEL 3.4 MG/DL (2.5-4.9); VANCOMYCIN RANDOM 10.2 UG/ML
[2021-01-13 06:28] LABS: PLATELET COUNT, AUTOMATED 95 10^3/uL (150-450)
[2021-01-13 06:29] LABS: HEMOGLOBIN 7.8 g/dl (13.5-17.5)
[2021-01-13] MEDS ORDERED: VANCOMYCIN HCL 1,000 MG, VIAL MATE ADAPTER 1 EACH in NS 250 ML IV SCH (08:00)
[2021-01-13] MEDS: ASPIRIN 81MG ENTERIC TABLET PO SCH (08:07)
[2021-01-13] MEDS: LACTOBACILLUS ACIDOPHILUS CAP (BACID) PO SCH ×2 (08:08→17:51)
[2021-01-13] MEDS: OMEPRAZOLE 20 MG CAP PO SCH (08:08)
[2021-01-13] MEDS: TAMSULOSIN 0.4 MG CAP PO SCH (08:08)
[2021-01-13] MEDS ORDERED: cefTRIAXone SOD 1 GM in D5W MINI-BAG PLUS 50 ML IV SCH (09:00)
[2021-01-13] MEDS ORDERED: VANCOMYCIN HCL 750 MG, VIAL MATE ADAPTER 1 EACH in NS 250 ML IV SCH (11:00)
[2021-01-13 11:42] LABS: CALCIUM LEVEL 7.3 MG/DL (8.8-10.2); CREATININE FOR GFR 1.4 MG/DL (0.70-1.30); GLOMERULAR FILTRATION RATE 54.5 (>49); POTASSIUM SERUM 4.6 MEQ/L (3.5-5.1)
[2021-01-13] MEDS ORDERED: VANCOMYCIN HCL 500 MG in D5W MINI-BAG PLUS 100 ML IV SCH (12:00)
[2021-01-13 16:15] LABS: CALCIUM LEVEL 7.2 MG/DL (8.8-10.2); CREATININE FOR GFR 1.41 MG/DL (0.70-1.30); POTASSIUM SERUM 5.1 MEQ/L (3.5-5.1)
--- NOTE | 2021-01-13 16:43 | IPNPDOC ---
Text Note Date of Service The patient was seen on 01/13/21. NOTE SUBJECTIVE: Today the patient looks much more alert with no abdominal pain. P atient states he slept well . There is no shortness of breath or chest pain. No acute events overnight as per the nurses. OBJECTIVE PHYSICAL EXAMINATION: VITAL SIGNS: Please see below. GENERAL APPEARANCE: Pt looks frail, pale but not in any acute distress lying in bed comfortably HEENT:Atraumatic, Normocephalic, PERRLA, EOMI, moist mucous membranes RESPIRATORY: Clear to auscultation B/l , No wheezing or rubs CARDIOVASCULAR: Regular rate and rhythm, Heart sounds normal, No murmurs or ga llops heard ABDOMEN: Distended (Ascitic), tense, tender in all quadrants. A big midline incision seen from previous whipples procedure EXTREMITIES: Grade 2+ pedal edema extending all the way up to his thighs. sacral edema present NEUROLOGICAL: Grade 5/5 motor strength, sensations intact PSYCHIATRIC: Appropriate mood or affect LABORATORY DATA: Please see below. ASSESSMENT/PLAN: 1. Acute kidney injury secondary to diuretics versus sepsis versus Hepatorenal syndrome Type 1: -Patient has a history of liver cirrhosis presents with a septic picture today and is on chronic diuretics-very likely a multifactorial KAILEE. -Creatinine levels of 1.90 and GFR of 38.3. Baseline is 1.0. Almost two fold rise in creatinine. -Yesterday patient was admitted to the ICU. Patient is still ICU status bry use of hypotension which was fluid responsive. Overnight the patient received normal saline at a rate of 125 mL/h. -We stopped the patient's fluids as we suspected the patient was getting fluid overloaded in his legs. His pedal edema and gotten worse. -Continue holding diuretics. -Continue with Tamsulosin for improved stream. -Will follow GFR closely . Patient's creatinine level has gotten much better came down from 1.55-1.42. -Patient has been making urine on his own. No signs of retention. 2. Hyperkalemia secondary to hepatorenal syndrome versus chronic spironolactone use: -Patient's potassium came down to 5meq/ml today. -Continue holding patient's spironolactone. -Resolved. 3.Cirrhosis with Ascites: -Patient's paracentesis was done yesterday and spontaneous bacterial peritonitis was ruled out. -Patient continues to be on IV antibiotics. -We will be giving the patient another 25 mg of albumin every 8 hours \ 4.Hypotension secondary to sepsis vs fluid removal via paracentesis : -Resolved. -As per the nurse patient has had normal blood pressures on fluids all night. -However the patient has started to get fluid overloaded so we are stopping IV fluids. -So far, fluid responsive -If continues to be hypotensive vasopressors may be indicated. 5. Microcytic anemia: -Patient's hemoglobin and hematocrit has gone drastically down could be because of hemodilution. -1 unit of blood was ordered for the patient today. -There is no loss of blood in the stools or any urine.-Source unspecified -We will continue to monitor the patient's hematocrit. -So far the patient is asymptomatic. VS,Fishbone, I+O VS, Fishbone, I+O Laboratory Tests 01/12/21 20:49 01/12/21 22:23 01/13/21 02:53 01/13/21 05:36 01/13/21 11:08 01/13/21 15:05 Vital Signs Date Time Temp Pulse Resp B/P (MAP) Pulse Ox O2 Delivery O2 Flow Rate FiO2 01/13/21 13:54 98.8 90 16 115/65 98 Room Air I&O- Last 24 Hours up to 6 AM 01/13/21 06:00 Intake Total 6112.0 ml Output Total 9200 ml Balance -3088.0 ml GME ATTESTATION GME ATTESTATION My faculty preceptor for this patient encounter was physically present during the encounter and was fully available. All aspects of the patient interview, examination, medical decision making process, and medical care plan development were reviewed and approved by the faculty preceptor. The faculty preceptor is aware and concurs with the plan as stated in the body of this note and will attest to such by his/her cosignature. ATTENDING NOTE Sepsis sec to Bacteremia Acute Renal failure Cirrhosis with Ascites, Anasarca Anemia Give one unit PRBC. cont IV albumin. Stop IVF due to ascites and Anasarca. Cont IV Abx. Fan Swenson MD Jan 13, 2021 16:43 JOHANN SANTIAGO MD Jan 15, 2021 10:54
[2021-01-13 20:19] LABS: CALCIUM LEVEL 7.6 MG/DL (8.8-10.2); CREATININE FOR GFR 1.31 MG/DL (0.70-1.30); GLOMERULAR FILTRATION RATE 58.8 (>49)
[2021-01-13] MEDS: RAMELTEON 8 MG TAB (ROZEREM) PO PRN (23:13)
[2021-01-14 06:00] VITALS: BP 113/75
[2021-01-14] MEDS: HEPARIN SOD (PORCINE) 5000UNITS/ML 1ML VIAL/SYRINGE SQ SCH ×2 (06:00→13:40)
[2021-01-14] MEDS: THIAMINE INJection 500 MG in NS 100 ML IV SCH (06:03)
[2021-01-14 06:08] LABS: HEMATOCRIT 26.5 % (42.0-52.0); HEMOGLOBIN 8.9 g/dl (13.5-17.5); MEAN CORPUSCULAR HEMOGLOBIN 32.1 pg (27.0-33.0); MEAN CORPUSCULAR HGB CONC 33.6 g/dl (32.0-36.5); MEAN CORPUSCULAR VOLUME 95.7 fl (80.0-96.0); PLATELET COUNT, AUTOMATED 102 10^3/uL (150-450); RED BLOOD COUNT 2.77 10^6/uL (4.30-6.10); WHITE BLOOD COUNT 7.4 10^3/uL (4.0-10.0)
[2021-01-14 06:31] LABS: BLOOD UREA NITROGEN 20 MG/DL (7-18); CALCIUM LEVEL 7.4 MG/DL (8.8-10.2); CARBON DIOXIDE LEVEL 19 MEQ/L (21-32); CHLORIDE LEVEL 106 MEQ/L (98-107); CREATININE FOR GFR 1.13 MG/DL (0.70-1.30); GLOMERULAR FILTRATION RATE > 60.0 (>49); GLUCOSE, FASTING 103 MG/DL (70-100); MAGNESIUM LEVEL 1.9 MG/DL (1.8-2.4); PHOSPHORUS LEVEL 2.3 MG/DL (2.5-4.9); SODIUM LEVEL 131 MEQ/L (136-145)
[2021-01-14] MEDS: LACTOBACILLUS ACIDOPHILUS CAP (BACID) PO SCH ×2 (08:58→17:09)
[2021-01-14] MEDS: MEROPENEM INJ 1 GM in IV 1 EA IV SCH (08:58)
[2021-01-14] MEDS: ASPIRIN 81MG ENTERIC TABLET PO SCH (08:58)
[2021-01-14] MEDS: OMEPRAZOLE 20 MG CAP PO SCH (08:58)
[2021-01-14] MEDS: TAMSULOSIN 0.4 MG CAP PO SCH (08:58)
[2021-01-14] MEDS: TORSEMIDE 20 MG TAB PO SCH (11:54)
[2021-01-14] MEDS ORDERED: cefTRIAXone SOD 1GM VIAL (J0696 PER 250MG) IM SCH (13:05)
--- NOTE | 2021-01-14 13:05 | IPNPDOC ---
Subjective Date Seen The patient was seen on 01/14/21. Subjective Chief Complaint/HPI Patient seen and examined at bedside this morning. He reports feeling well and denied any new complaints. Other systems 10 point review of system was negative except for what is noted in the HPI Objective Physical Examination Other physical findings General: Lying in bed, no acute distress Head/Neck/Throat: Trachea midline, mucous membranes moist Eyes: Sclera anicteric, no erythema or discharge appreciated bilaterally Thorax: Bibasal inspiratory crackles Cardiovascular: Normal rate, regular rhythm, normal S1, S2; no S3, S4, rubs/gallops/murmurs Abdomen: Bowel sounds are present, abdomen is soft, no tenderness reported with palpation Genitourinary: No CVA tenderness, no Rivera in place Musculoskeletal: Moving all extremities, no edema Skin: Warm, dry Neurologic: AAOx3, speech fluent and goal-directed, no focal deficits, grossly intact Assessment /Plan Assessment #Sepsis -Bacteremic with E. coli. C. difficile was negative, paracentesis cx negative. -Hemodynamically remains stable. Lactic acid has down trended. -Narrow ab. to ceftriaxone. -Repeat blood cx. #Bacteremia -Plan as above #Normocytic anemia -Received 1[facility] [place] with nephrology team on 01/13 when his hemoglobin was noted to downtrend from 11.2-7.8. Today, his hemoglobin is 8.9. -There is no signs of overt bleeding. We will obtain an iron panel and reticulo cyte count. Occult blood test. #KAILEE -Prerenal azotemia, resolved. -Avoid nephrotoxic medications -Renal ultrasound shows no signs of hydronephrosis. -Renal rec. appreciated. #Electrolyte abnormality -Hyperkalemia -resolved. #Cirrhosis -Paracentesis done on 01/12. Cell count not significant for SBP. -We'll hold furosemide and spironolactone until renal function shows consistency in stabilization. #Hx of urinary retention -Continue with tamsulosin. #DVT ppx -Heparin subq Plan/VTE VTE Prophylaxis Ordered?: Yes VS, I&O, 24H, Fishbone Vital Signs/I&O Vital Signs Date Time Temp Pulse Resp B/P (MAP) Pulse Ox O2 Delivery O2 Flow Rate FiO2 01/14/21 06:00 98.2 101 17 113/75 (88) 96 Room Air I&O- Last 24 Hours up to 6 AM 01/14/21 06:00 Intake Total 1910.0 ml Output Total 700 ml Balance 1210.0 ml Laboratory Data 24H LABS Laboratory Tests 2 01/13/21 15:05: Anion Gap 4L, Glomerular Filtration Rate 54.0, Calcium Level 7.2L 01/13/21 19:33: Anion Gap 8, Glomerular Filtration Rate 58.8, Calcium Level 7.6L 01/14/21 05:39: Anion Gap 6L, Glomerular Filtration Rate > 60.0, Calcium Level 7.4L, Nucleated Red Blood Cells % (auto) 0.0, Lactic Acid Level 2.0, Phosphorus Level 2.3#L, Magnesium Level 1.9 CBC/BMP Laboratory Tests 01/13/21 15:05 01/13/21 19:33 01/14/21 05:39 Microbiology Microbiology 01/12/21 Gram Stain - Final, Complete 01/12/21 Body Fluid Culture - Final, Complete 01/12/21 Respiratory Virus Panel (PCR) (ALONDRA) - Final, Complete 01/12/21 Blood Culture - Final, Complete Escherichia Coli 01/12/21 Blood Culture - Final, Complete Escherichia Coli SIMIN TAVERAS M.D. Jan 14, 2021 12:40
[2021-01-14] MEDS: cefTRIAXone SOD 1 GM in D5W MINI-BAG PLUS 50 ML IV SCH (13:39)
[2021-01-14 14:00] VITALS: BP 108/73
[2021-01-14] MEDS ORDERED: SODIUM PHOSPHATE INJ 20 MMOL in D5W 250 ML IV ONE (15:00)
--- NOTE | 2021-01-14 15:20 | IPN ---
PROGRESS NOTE DATE: 01/14/2021 SUBJECTIVE: Patient was seen and examined at the bedside today morning. He is afebrile and hemodynamically stable. He is having a good urine output. Renal function is improving. Creatinine is down to 1.1 today. He was also given 1 unit of PRBC transfusion, hemoglobin level is better. His blood cultures came back positive for E. coli. He continues to be on IV antibiotics. He does report some abdominal distention and lower extremity edema. OBJECTIVE: VITAL SIGNS: Temperature is 98.2 degrees Fahrenheit, blood pressure is 113/75, pulse is 101, respiratory rate is 17, saturating 96% on room air. INTAKE AND OUTPUT: Urine output recorded as 800 ml yesterday, 400 ml so far today since overnight. Weight on the bed scale is not available. GENERAL: Patient is awake, alert and oriented x3, laying in bed. HEAD AND NECK: Extraocular muscles intact. Pupils equally round and reactive to light. Mucous membranes are moist. Neck is supple. Mildly elevated JVD is noted. CARDIOVASCULAR: S1 and S2, regular rate. There is 2+ edema of the bilateral lower extremities noted. RESPIRATORY: Mildly decreased breath sounds at the bases. ABDOMEN: Abdomen is distended. Distended abdominal veins are noted. A moderate amount of ascites and abdominal wall edema is also noted. MUSCULOSKELETAL: Patient has 2+ edema of the bilateral lower extremities. [employer]ING [employer]: No focal deficit. Power is 5/5 in all extremities. LABORATORY DATA: CBC showed a WBC of 7.4, hemoglobin 8.9, platelets of 102,000. BMP showed a sodium of 131 potassium 5, chloride 106, bicarbonate 19, BUN 20, creatinine was 1.1, it was 1.3 yesterday. Lactic acid is 2. Phosphorus 2.3, magnesium is 1.9. Microbiology: Blood cultures two out of two from January 12 are growing E. coli. CURRENT INPATIENT MEDICATIONS: Patient's medications were all reviewed by myself. He continues to be on IV Meropenem. I have started the patient on torsemide 40 mg p.o. daily. ASSESSMENT AND PLAN: 1. Acute nonoliguric renal failure, it was secondary to sepsis and hypotension and use of diuretics at home. Renal function has improved back to baseline. Diuretics are being restarted as mentioned above. 2. Decompensated cirrhosis with ascites, patient got the paracentesis done on admission, however he got a lot of IV fluids as part of the sepsis protocol as well. Patient has significant lower extremity edema and ascites. I have restarted him on torsemide 40 mg p.o. daily. If needed, another ascitic tap will be done during this hospitalization. 3. Hyperkalemia. It had improved and potassium is staying stable at 5. Potassium will further improve with initiation of loop diuretics. 4. E. coli bacteremia, the source is not yet known. He is on IV Meropenem which should adequately cover the infection. Leukocytosis is getting better. Blood pressures are stable now. 5. Anemia, patient was given 1 unit of PRBC transfusion. Hemoglobin level is stable at 8.9 now.
[2021-01-14 20:00] VITALS: BP 118/74
[2021-01-14] MEDS: RAMELTEON 8 MG TAB (ROZEREM) PO PRN (22:10)
[2021-01-15 06:00] VITALS: BP 107/67
[2021-01-15 07:38] LABS: HEMATOCRIT 29.1 % (42.0-52.0); HEMOGLOBIN 9.9 g/dl (13.5-17.5); MEAN CORPUSCULAR HEMOGLOBIN 32.4 pg (27.0-33.0); MEAN CORPUSCULAR VOLUME 95.1 fl (80.0-96.0); PLATELET COUNT, AUTOMATED 102 10^3/uL (150-450); RED BLOOD COUNT 3.06 10^6/uL (4.30-6.10); WHITE BLOOD COUNT 4.9 10^3/uL (4.0-10.0)
[2021-01-15 08:13] LABS: BLOOD UREA NITROGEN 17 MG/DL (7-18); CALCIUM LEVEL 7.4 MG/DL (8.8-10.2); CARBON DIOXIDE LEVEL 21 MEQ/L (21-32); CHLORIDE LEVEL 104 MEQ/L (98-107); CREATININE FOR GFR 1.05 MG/DL (0.70-1.30); FERRITIN 1618 NG/ML (26-388); GLOMERULAR FILTRATION RATE > 60.0 (>49); GLUCOSE, FASTING 100 MG/DL (70-100); IRON (FE) 50 UG/DL (65-175); MAGNESIUM LEVEL 1.8 MG/DL (1.8-2.4); PHOSPHORUS LEVEL 2.9 MG/DL (2.5-4.9); POTASSIUM SERUM 4.1 MEQ/L (3.5-5.1); SODIUM LEVEL 131 MEQ/L (136-145); TOTAL IRON BINDING CAPACITY 40 UG/DL (250-450)
[2021-01-15] MEDS: TORSEMIDE 20 MG TAB PO SCH (09:00)
[2021-01-15] MEDS ORDERED: SPIRONOLACTONE 50 MG TAB PO SCH (09:00)
[2021-01-15 09:35] VITALS: BP 108/71
[2021-01-15] MEDS: TAMSULOSIN 0.4 MG CAP PO SCH (09:37)
[2021-01-15] MEDS: OMEPRAZOLE 20 MG CAP PO SCH (09:37)
[2021-01-15] MEDS: ASPIRIN 81MG ENTERIC TABLET PO SCH (09:37)
[2021-01-15] MEDS: LACTOBACILLUS ACIDOPHILUS CAP (BACID) PO SCH ×2 (09:37→17:28)
[2021-01-15 13:36] LABS: INR 1.43; PROTHROMBIN TIME 17.8 SECONDS (12.7-14.5)
[2021-01-15 13:37] LABS: PARTIAL THROMBOPLASTIN TIME 37.7 SECONDS (25.9-37.0)
[2021-01-15 14:00] VITALS: BP 107/71
[2021-01-15] MEDS: cefTRIAXone SOD 1 GM in D5W MINI-BAG PLUS 50 ML IV SCH (15:01)
--- NOTE | 2021-01-15 16:24 | ECGEPIP ---
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
--- NOTE | 2021-01-15 18:49 | IPNPDOC ---
Subjective Date Seen The patient was seen on 01/15/21. Subjective Chief Complaint/HPI Patient seen and examined at bedside this morning. He reported feeling well and had no new complaints. His occult test was positive. He denies having bright red blood in his stool or dark-colored stool that he noticed.He denied headaches, chest pain, shortness of breath, abdominal pain, nausea, vomiting, problems with urination or bowel movements. Other systems 10 point review of system was negative except for what is noted in the HPI Objective Physical Examination Other physical findings General: Lying in bed, no acute distress Head/Neck/Throat: Trachea midline, mucous membranes moist Eyes: Sclera anicteric, no erythema or discharge appreciated bilaterally Thorax: Bibasal inspiratory crackles Cardiovascular: Normal rate, regular rhythm, normal S1, S2; no S3, S4, rubs/gallops/murmurs Abdomen: Bowel sounds are present, abdomen is soft, no tenderness reported with palpation, mildly distended Genitourinary: No CVA tenderness, no Rivera in place Musculoskeletal: Moving all extremities, no edema Skin: Warm, dry Neurologic: AAOx3, speech fluent and goal-directed, no focal deficits, grossly intact Assessment /Plan Assessment #Sepsis -Bacteremic with E. coli unclear source of this. C. difficile was negative, paracentesis cx negative. -Hemodynamically remains stable. Lactic acid has down trended. -Narrow ab. to ceftriaxone. -Repeat blood cx. #Bacteremia -Plan as above #Normocytic anemia -Received [facility] with nephrology team on 01/13 when his hemoglobin was noted to downtrend from 11.2-7.8. Today, his hemoglobin is 8.9. -There is no signs of overt bleeding. -Positive stool occult blood test -patient undergo endoscopic evaluation for assessment of varices. We do not have GI coverage. Tried to call [facility] and [place] but they did not accept the patient due to bed availability. Awaiting call back from [place]. #KAILEE -Prerenal azotemia, resolved. -Avoid nephrotoxic medications -Renal ultrasound shows no signs of hydronephrosis. -Renal rec. appreciated. #Electrolyte abnormality -Hyperkalemia -resolved. #Cirrhosis -Paracentesis done on 01/12. Cell count not significant for SBP. -Continue diuretic therapy with hold parameters. #Hx of urinary retention -Continue with tamsulosin. #DVT ppx -Heparin subq Plan/VTE VTE Prophylaxis Ordered?: Yes VS, I&O, 24H, Fishbone Vital Signs/I&O Vital Signs Date Time Temp Pulse Resp B/P (MAP) Pulse Ox O2 Delivery O2 Flow Rate FiO2 01/15/21 09:35 87 108/71 (83) 01/15/21 06:00 98.8 20 100 Room Air I&O- Last 24 Hours up to 6 AM 01/15/21 06:00 Intake Total 1765 ml Output Total 2300 ml Balance -535 ml Laboratory Data 24H LABS Laboratory Tests 2 01/15/21 07:09: Reticulocyte # (auto) 34.3, Nucleated Red Blood Cells % (auto) 0.0, Percent Reticulocyte Count 1.1, Reticulocyte Hemoglobin Equivalent 33.7, Anion Gap 6L, Glomerular Filtration Rate > 60.0, Calcium Level 7.4L, Phosphorus Level 2.9#, Magnesium Level 1.8, Iron Level 50L, Total Iron Binding Capacity 40L, Transferrin % Saturation 125.0H, Ferritin 1618H CBC/BMP Laboratory Tests 01/15/21 07:09 Microbiology Microbiology 01/14/21 Stool Occult Blood (ALONDRA) - Final, Complete 01/14/21 Blood Culture, Received Pending 01/14/21 Blood Culture, Received Pending 01/12/21 Gram Stain - Final, Complete 01/12/21 Body Fluid Culture - Final, Complete 01/12/21 Respiratory Virus Panel (PCR) (ALONDRA) - Final, Complete 01/12/21 Blood Culture - Final, Complete Escherichia Coli 01/12/21 Blood Culture - Final, Complete Escherichia Coli SIMIN TAVERAS M.D. Jan 15, 2021 11:49
[2021-01-15 19:10] LABS: ALBUMIN 2.5 GM/DL (3.2-5.2); BILIRUBIN,DIRECT 0.3 MG/DL (0.0-0.2); BILIRUBIN,TOTAL 0.7 MG/DL (0.2-1.0); TOTAL PROTEIN 4.8 GM/DL (6.4-8.2)
[2021-01-15 21:00] VITALS: BP 122/76
--- NOTE | 2021-01-15 21:03 | DS.PDOC ---
Discharge Summary General Date of Admission Jan 12, 2021 at 08:15 Date of Discharge 01/15/21 Discharge Summary PROCEDURES PERFORMED DURING STAY: [None]. ADMITTING DIAGNOSES: 1. Sepsis DISCHARGE DIAGNOSES: 1. E. coli bacteremia 2. GI bleed 3. Cirrhosis (non-alcoholic) COMPLICATIONS/CHIEF COMPLAINT: Sepsis. HOSPITAL COURSE: Mr. Glez is a 65-year-old male with a past medical history of pancreatic carcinoma (status post Whipple procedure), nonalcoholic cirrhosis, and hypertension who presented to the emergency department at [facility] with complaints of chills on 01/12/21. He reports waking up at approximately 3 AM on 01/12 having chills and rigors. He had no associated/specific pain that he d escribed. He was recently discharged on 01/07 for which he was treated for E. coli bacteremia and C. difficile. He endorsed having a distended abdomen secondary to his cirrhosis for which he normally receives therapeutic paracentesis biweekly. On admission his vital were stable, but he was noted to have wbc of 18.5, and hemoglobin of 11.2. Chem was significant for a sodium of 132, and bun/cr of 22/1.31. He was started empirically on broad spectrum antibiotics. His UA was unremarkable. He underwent paracentesis 01/12 which showed a cell count and cultures that were negative. On 01/13 patient was noted to drop his hemoglobin from 11.2 to 7.8. He received 1 unit of PRBC. He remained hemodynamically stable. His blood occult test was positive. His blood cultures drawn on admission were positive for E.coli and sensitive to ceftriaxone. Of note, repeat c.diff test was negative. Following transfusion the patients hemoglobin remained stable from 8.9 to 9. Considering his history of cirrhosis and recurrent bacteremia he would benefit from endoscopic evaluation for possible varices bleed. At this our facility does not have GI coverage, thus he will be transferred to [place] for further e valuation. At the time of transfer: patient's spirolactone, and torsemide were held due to his blood pressure. He had received a total of 1 day on meropenem, and 3 days off ceftriaxone. DISCHARGE MEDICATIONS: Please see below. ALLERGIES: Please see below. PHYSICAL EXAMINATION ON DISCHARGE: VITAL SIGNS: Please see below. General: Lying in bed, no acute distress Head/Neck/Throat: Trachea midline, mucous membranes moist Eyes: Sclera anicteric, no erythema or discharge appreciated bilaterally Thorax: Bibasal inspiratory crackles Cardiovascular: Normal rate, regular rhythm, normal S1, S2; no S3, S4, rubs/gallops/murmurs Abdomen: Bowel sounds are present, abdomen is soft, no tenderness reported with palpation, mildly distended Genitourinary: No CVA tenderness, no Rivera in place Musculoskeletal: Moving all extremities, no edema Skin: Warm, dry Neurologic: AAOx3, speech fluent and goal-directed, no focal deficits, grossly intact LABORATORY DATA: Please see below. Imaging: Renal ultrasound 01/12: Renal cortical echogenicity pattern is normal bilaterally and contours are smooth. There is no hydronephrosis bilaterally. There is a 1.1 cm cyst of the lower pole the left kidney. The right kidney measures 10.1 x 6.7 x 5.2 cm. Left renal dimensions are 10.8 x 4.7 x 5.6 cm. Urinary bladder is minimally distended and not well evaluated. Ascites is incidentally noted. The patient is undergoing paracentesis. IMPRESSION: No hydronephrosis. Chest x-ray impression 01/12/21 Hypoventilatory change with mild subsegmental atelectasis and/or scar. No consolidation. No significant change. TIME SPENT ON DISCHARGE: 30 minutes. Vital Signs/I&Os Vital Signs Date Time Temp Pulse Resp B/P (MAP) Pulse Ox O2 Delivery O2 Flow Rate FiO2 01/15/21 14:00 97.7 85 18 107/71 (83) 99 Room Air I&O- Last 24 Hours up to 6 AM 01/15/21 06:00 Intake Total 1765 ml Output Total 2300 ml Balance -535 ml Laboratory Data Labs 24H Laboratory Tests 2 01/15/21 07:09: Reticulocyte # (auto) 34.3, Nucleated Red Blood Cells % (auto) 0.0, Percent Reticulocyte Count 1.1, Reticulocyte Hemoglobin Equivalent 33.7, Anion Gap 6L, Glomerular Filtration Rate > 60.0, Calcium Level 7.4L, Phosphorus Level 2.9#, Magnesium Level 1.8, Iron Level 50L, Total Iron Binding Capacity 40L, Transferrin % Saturation 125.0H, Ferritin 1618H 01/15/21 13:05: Total Bilirubin 0.7, Direct Bilirubin 0.3H, Aspartate Amino Transf (AST/SGOT) 37, Alanine Aminotransferase (ALT/SGPT) 33, Alkaline Phosphatase 138H, Total Protein 4.8L, Albumin 2.5L, Albumin/Globulin Ratio 1.1 01/15/21 13:08: Prothrombin Time 17.8H, Prothromb Time International Ratio 1.43, Activated Partial Thromboplast Time 37.7 CBC/BMP Laboratory Tests 01/15/21 07:09 Microbiology Microbiology 01/14/21 Stool Occult Blood (ALONRDA) - Final, Complete 01/14/21 Blood Culture - Preliminary, Resulted No growth after 24 hours . All specim... 01/14/21 Blood Culture - Preliminary, Resulted No growth after 24 hours . All specim... 01/12/21 Gram Stain - Final, Complete 01/12/21 Body Fluid Culture - Final, Complete 01/12/21 Respiratory Virus Panel (PCR) (ALONDRA) - Final, Complete 01/12/21 Blood Culture - Final, Complete Escherichia Coli 01/12/21 Blood Culture - Final, Complete Escherichia Coli Discharge Medications Scheduled Aspirin (Aspirin EC) 81 Mg Tablet.dr, 81 MG PO DAILY, (Reported) Cholecalciferol (Vitamin D3) (Vitamin D3) 1,000 Unit Tablet, 1,000 UNITS PO DAILY, (Reported) Furosemide (Furosemide) 40 Mg Tablet, 40 MG PO BID, (Reported) Lactulose (Constulose) 10 Gm/15 Ml Solution, 30 ML PO TID, (Reported) MORNING/DINNER/BEDTIME Magnesium Oxide (Magnesium Oxide) 400 Mg Tablet, 400 MG PO BID, (Reported) Omeprazole (Omeprazole) 20 Mg Capsule.dr, 20 MG PO DAILY, (Reported) Spironolactone (Spironolactone) 100 Mg Tablet, 100 MG PO BID, (Reported) Sulfamethoxazole/Trimethoprim (Bactrim Ds Tablet) 1 Each Tablet, 1 TAB PO DAILY, (Reported) Tamsulosin Hcl (Tamsulosin HCl) 0.4 Mg Capsule, 0.4 MG PO DAILY, (Reported) Allergies Coded Allergies: No Known Allergies (Unverified , 01/08/18) SIMIN TAVERAS M.D. Jan 15, 2021 20:58
[2021-01-15] MEDS: RAMELTEON 8 MG TAB (ROZEREM) PO PRN (22:53)
[2021-01-16 00:13] LABS: HEMATOCRIT 27.4 % (42.0-52.0); HEMOGLOBIN 9.3 g/dl (13.5-17.5); MEAN CORPUSCULAR HEMOGLOBIN 32.5 pg (27.0-33.0); MEAN CORPUSCULAR HGB CONC 33.9 g/dl (32.0-36.5); MEAN CORPUSCULAR VOLUME 95.8 fl (80.0-96.0); PLATELET COUNT, AUTOMATED 109 10^3/uL (150-450); RED BLOOD COUNT 2.86 10^6/uL (4.30-6.10); WHITE BLOOD COUNT 5.6 10^3/uL (4.0-10.0)
[2021-01-16 00:46] LABS: BLOOD UREA NITROGEN 16 MG/DL (7-18); CALCIUM LEVEL 7.2 MG/DL (8.8-10.2); CARBON DIOXIDE LEVEL 23 MEQ/L (21-32); CHLORIDE LEVEL 106 MEQ/L (98-107); CREATININE FOR GFR 0.94 MG/DL (0.70-1.30); GLOMERULAR FILTRATION RATE > 60.0 (>49); GLUCOSE, FASTING 154 MG/DL (70-100); MAGNESIUM LEVEL 1.8 MG/DL (1.8-2.4); POTASSIUM SERUM 4.5 MEQ/L (3.5-5.1); SODIUM LEVEL 133 MEQ/L (136-145)
[2021-01-16 06:00] VITALS: BP 116/73
[2021-01-16 06:03] LABS: HEMOGLOBIN 9.4 g/dl (13.5-17.5); MEAN CORPUSCULAR HEMOGLOBIN 31.5 pg (27.0-33.0); MEAN CORPUSCULAR HGB CONC 33.6 g/dl (32.0-36.5); PLATELET COUNT, AUTOMATED 110 10^3/uL (150-450); RED BLOOD COUNT 2.98 10^6/uL (4.30-6.10); WHITE BLOOD COUNT 5.8 10^3/uL (4.0-10.0)
[2021-01-16 06:31] LABS: BLOOD UREA NITROGEN 15 MG/DL (7-18); CALCIUM LEVEL 7.4 MG/DL (8.8-10.2); CARBON DIOXIDE LEVEL 23 MEQ/L (21-32); CHLORIDE LEVEL 106 MEQ/L (98-107); CREATININE FOR GFR 0.74 MG/DL (0.70-1.30); GLOMERULAR FILTRATION RATE > 60.0 (>49); GLUCOSE, FASTING 97 MG/DL (70-100); POTASSIUM SERUM 4.3 MEQ/L (3.5-5.1); SODIUM LEVEL 135 MEQ/L (136-145)
[2021-01-16 06:33] LABS: MAGNESIUM LEVEL 1.8 MG/DL (1.8-2.4); PHOSPHORUS LEVEL 2.7 MG/DL (2.5-4.9)
[2021-01-16] MEDS: TAMSULOSIN 0.4 MG CAP PO SCH (08:29)
[2021-01-16] MEDS: LACTOBACILLUS ACIDOPHILUS CAP (BACID) PO SCH (08:29)
[2021-01-16] MEDS: TORSEMIDE 20 MG TAB PO SCH (08:29)
[2021-01-16] MEDS ORDERED: PANTOPRAZOLE 40MG VIAL (C9113 PER 1) IV SCH (09:00)
--- NOTE | 2021-01-16 11:30 | IPNPDOC ---
Text Note Date of Service The patient was seen on 01/15/21. NOTE SUBJECTIVE: Patient was seen and examined in his room today. He states he is doing much better and showing improvement. His belly is still a little sore and tender and of course distended even after his paracenteses took out 8700 mL of fluid. Patient's vitals are normal. No overnight events. OBJECTIVE: VITALS: Temperature 97.8 oral, blood pressure 122/76, respiratory rate 15, oxygen saturation of 97 on room air. GENERAL APPEARANCE: Pt looks frail, pale but not in any acute distress lying in bed comfortably HEENT:Atraumatic, Normocephalic, PERRLA, EOMI, moist mucous membranes RESPIRATORY: Clear to auscultation B/l , No wheezing or rubs CARDIOVASCULAR: Regular rate and rhythm, Heart sounds normal, No murmurs or gallops heard ABDOMEN: Distended (Ascitic), tense, tender in all quadrants. A big midline incision seen from previous whipples procedure EXTREMITIES: Grade 2+ pedal edema extending all the way up to his thighs. sacral edema present NEUROLOGICAL: Grade 5/5 motor strength, sensations intact PSYCHIATRIC: Appropriate mood or affect ASSESSMENT AND PLAN: 1. Acute nonoliguric renal failure secondary to sepsis versus use of diuretics: -Patient's kidney function is back to baseline. Creatinine of 1.05. -Patient is back on diuretics. -Patient has been making enough urine on his own. -On admission the patient refused a Rivera's catheter. -Patient is not septic anymore does not meet the criteria. 2.decompensated cirrhosis with ascites: -Paracenteses was done the removed 8700 mL of fluid with no evidence of spontaneous bacterial peritonitis. -Continues to be on torsemide 40 mg p.o. daily 3. Hyperkalemia: -Patient has been on loop diuretics since yesterday hoping for potassium levels to come down. -Potassium levels have stayed stable at 5. 4. E. coli bacteremia: -Blood cultures came back positive for E. coli most likely source to be urine less likely source to be got. -However the patient is already on IV meropenem. -Leukocytosis is resolved. 5. Anemia: -Patient continues to be anemic hemoglobin level was 9.4 today however asymptomatic. VS,Fishbone, I+O VS, Fishbone, I+O Laboratory Tests 01/16/21 00:00 01/16/21 05:37 Vital Signs Date Time Temp Pulse Resp B/P (MAP) Pulse Ox O2 Delivery O2 Flow Rate FiO2 01/16/21 06:00 97.7 88 14 116/73 (87) 98 Room Air I&O- Last 24 Hours up to 6 AM 01/16/21 06:00 Intake Total 1450 ml Output Total 1025 ml Balance 425 ml GME ATTESTATION GME ATTESTATION My faculty preceptor for this patient encounter was physically present during the encounter and was fully available. All aspects of the patient interview, examination, medical decision making process, and medical care plan development were reviewed and approved by the faculty preceptor. The faculty preceptor is aware and concurs with the plan as stated in the body of this note and will attest to such by his/her cosignature. Fan Swenson MD Jan 16, 2021 11:29
== END 2021-01-16 08:45 | disposition short-term general hospital (02) | DRG 710 ==
LOC: M ED 05:24 → M ED INP 08:15 → ENRESERV 09:14 → M ICU 13:02 → M MSPAV 01-13 16:20
PROVIDERS: ADMIT Internal Medicine; ATTEND Internal Medicine
PROC: 30233J1 Transfusion of Nonautologous Serum Albumin into Peripheral Vein, Percutaneous Approach (ICD-10-PCS; 2021-01-12)
PROC: 0W9G3ZX Drainage of Peritoneal Cavity, Percutaneous Approach, Diagnostic (ICD-10-PCS; principal; 2021-01-12 12:00)
PROC: 30233N1 Transfusion of Nonautologous Red Blood Cells into Peripheral Vein, Percutaneous Approach (ICD-10-PCS; 2021-01-13)
DX: A41.51 Sepsis due to Escherichia coli [E. coli] (principal); K76.7 Hepatorenal syndrome; N17.9 Acute kidney failure, unspecified; E87.2 Acidosis; R18.8 Other ascites; E87.1 Hypo-osmolality and hyponatremia; E87.5 Hyperkalemia; K92.2 Gastrointestinal hemorrhage, unspecified; K74.60 Unspecified cirrhosis of liver; R65.20 Severe sepsis without septic shock; D64.9 Anemia, unspecified; E11.9 Type 2 diabetes mellitus without complications; R33.9 Retention of urine, unspecified; I10 Essential (primary) hypertension; Z85.07 Personal history of malignant neoplasm of pancreas; Z79.82 Long term (current) use of aspirin; Z87.891 Personal history of nicotine dependence; Z79.899 Other long term (current) drug therapy; Z86.010 Personal history of colon polyps

== ENCOUNTER → 2021-01-25 | Outpatient (CLI) | payer BC ==
[~2021-01-25] MED LIST changes: +ASPI-161 PO; +OMEP-218 PO; +TAMS1CAP17 PO; +VANC125C10 PO
[2021-01-25 14:00] VITALS: BP 107/63
--- NOTE | 2021-01-25 17:01 | REP ---
INDICATION: ASCITES. COMPARISON: None. TECHNIQUE: The procedure was performed under the direct supervision of Dr. Kern. The procedure was performed by Dr. Swenson under my personal guidance. The risks and benefits of the procedure were explained to the patient and informed consent was obtained. The largest pocket of fluid was localized in the left lower quadrant using ultrasound guidance. The skin was prepped and draped in a sterile fashion. 9 mL of 1% lidocaine was used as a local anesthetic. An 8-Ecuadorean multi side-hole catheter was inserted using trocar technique.8500 mL of yellow fluid was withdrawn and discarded. Estimated blood loss: Less than 1 mL The patient tolerated the procedure well and there were no immediate complications. After the appropriate amount of monitored convalescence, the patient was discharged from the department. FINDINGS: None IMPRESSION: Ultrasound-guided paracentesis [id number] mL of yellow fluid. <Electronically signed by David Peter > 01/25/21 1650 <Electronically signed by Eleno Kern > 01/25/21 1749
== END ==
LOC: M IRPRO 12:21
PROVIDERS: ATTEND Internal Medicine Gastroenterology
DX: R18.8 Other ascites (principal); K74.69 Other cirrhosis of liver; K75.81 Nonalcoholic steatohepatitis (NASH)

== ENCOUNTER → 2021-01-27 | Outpatient (REF) | payer BC ==
[2021-01-27 19:32] LABS: APPEARANCE, URINE CLEAR (CLEAR); BACTERIA, URINE AUTO NEGATIVE (NEGATIVE); BILIRUBIN, URINE AUTO NEGATIVE (NEGATIVE); BLOOD, URINE BLOOD NEGATIVE (NEGATIVE); COLOR, URINE YELLOW (YELLOW); GLUCOSE, URINE (UA) AUTO NEGATIVE (NEGATIVE); KETONE, URINE AUTO NEGATIVE (NEGATIVE); LEUKOCYTE ESTERASE, URINE AUTO NEGATIVE (NEGATIVE); NITRITE, URINE AUTO NEGATIVE (NEGATIVE); PROTEIN, URINE AUTO NEGATIVE (NEGATIVE); RBC, URINE AUTO 1 /HPF (0-3); SPECIFIC GRAVITY URINE AUTO 1.008 (1.002-1.035); SQUAMOUS EPITHELIAL CELL UR AU 0 /HPF (0-6); UROBILINOGEN, URINE AUTO 0.2 mg/dL (0.0-2.0); WBC, URINE AUTO 1 /HPF (0-3)
== END ==
LOC: M SMT 18:27
PROVIDERS: ATTEND Nurse Practitioner Women's Health
DX: N40.1 Benign prostatic hyperplasia with lower urinary tract symptoms (principal)

== ENCOUNTER 2021-01-28 14:28 | Inpatient (IN) | payer BC ==
[~2021-01-28] VITALS: Ht 177.8 cm; Wt 76.4 kg
[~2021-01-28 14:28] MED LIST changes: -ASPI-161 PO; -OMEP-218 PO; -PROC10TA4 PO; +PROC10TA5 PO
[2021-01-28 15:36] LABS: BASO # 0.1 10^3/uL (0.0-0.2); BASO % 0.5 % (0.0-1.0); HEMATOCRIT 28.1 % (42.0-52.0); HEMOGLOBIN 9.5 g/dl (13.5-17.5); LYMPH # 1.1 10^3/uL (1.5-5.0); MEAN CORPUSCULAR HEMOGLOBIN 31.7 pg (27.0-33.0); MEAN CORPUSCULAR HGB CONC 33.8 g/dl (32.0-36.5); MEAN CORPUSCULAR VOLUME 93.7 fl (80.0-96.0); MONO # 1.1 10^3/uL (0.0-0.8); MONO % 11.3 % (2.0-8.0); NEUTROPHILS # 7.8 10^3/uL (1.5-8.5); NEUTROPHILS % 76.8 % (36.0-66.0); PLATELET COUNT, AUTOMATED 206 10^3/uL (150-450); WHITE BLOOD COUNT 10.1 10^3/uL (4.0-10.0)
[2021-01-28 17:25] LABS: ALBUMIN 2.3 GM/DL (3.2-5.2); BILIRUBIN,TOTAL 1.1 MG/DL (0.2-1.0); CALCIUM LEVEL 7.9 MG/DL (8.8-10.2); CREATININE FOR GFR 2.55 MG/DL (0.70-1.30); GLOMERULAR FILTRATION RATE 27.2 (>49); POTASSIUM SERUM 6.4 MEQ/L (3.5-5.1); TOTAL PROTEIN 4.7 GM/DL (6.4-8.2)
[2021-01-28] MEDS ORDERED: HumuLIN R (REGULAR) INSULIN (NovoLIN R) **100U/ML** PER UNIT IV STA (17:50)
[2021-01-28] MEDS ORDERED: SOD POLYSTYRENE SULFONATE SUSP 15 GM/60 ML UD PO ONE (17:50)
[2021-01-28] MEDS ORDERED: DEXTROSE 50% 50 ML SYRINGE IV STA ×2 (17:50→18:17)
[2021-01-28] MEDS ORDERED: CALCIUM GLUCONATE 1,000 MG in D5W MINI-BAG PLUS 100 ML IV ONE (18:20)
[2021-01-28] MEDS: TAMSULOSIN 0.4 MG CAP PO SCH (18:33)
[2021-01-28 20:55] LABS: RSV AMPLIFICATION NEGATIVE (NEGATIVE)
[2021-01-28] MEDS: LACTULOSE 20 GM/30 ML SYRUP UD PO SCH (21:07)
[2021-01-28] MEDS ORDERED: ASPI-161 PO (21:58)
[2021-01-28] MEDS ORDERED: SPIR100T3 PO (21:58)
[2021-01-28] MEDS ORDERED: OMEP-173 PO (21:58)
[2021-01-28] MEDS ORDERED: LACT20EL PO (21:58)
[2021-01-28] MEDS ORDERED: D31000TA2 PO (21:58)
[2021-01-28] MEDS ORDERED: FURO40TA2 PO (21:58)
[2021-01-28] MEDS ORDERED: MAGN400T2 PO (21:58)
[2021-01-28] MEDS ORDERED: FLOM0.4C39 PO (21:58)
[2021-01-28] MEDS ORDERED: HOME MED LIST COMPLETE! XX SCH (22:05)
[2021-01-28 23:33] LABS: CALCIUM LEVEL 7.7 MG/DL (8.8-10.2); CREATININE FOR GFR 2.38 MG/DL (0.70-1.30); GLOMERULAR FILTRATION RATE 29.4 (>49); MAGNESIUM LEVEL 2.3 MG/DL (1.8-2.4); PHOSPHORUS LEVEL 5.4 MG/DL (2.5-4.9); POTASSIUM SERUM 6.1 MEQ/L (3.5-5.1)
[2021-01-29] MEDS ORDERED: CALCIUM GLUCONATE 1,000 MG in D5W MINI-BAG PLUS 100 ML IV ONE ×2 (07:00→21:45)
[2021-01-29] MEDS ORDERED: SOD POLYSTYRENE SULFONATE SUSP 15 GM/60 ML UD PO ONE ×2 (07:00→21:45)
[2021-01-29] MEDS: LACTULOSE 20 GM/30 ML SYRUP UD PO SCH ×3 (07:43→21:14)
[2021-01-29] MEDS: HEPARIN SOD (PORCINE) 5000UNITS/ML 1ML VIAL/SYRINGE SC SCH ×3 (07:43→21:14)
[2021-01-29] MEDS: OMEPRAZOLE 20MG CAP PO SCH (08:58)
[2021-01-29] MEDS ORDERED: PILL CUTTER 1 EACH XX ONE (08:59)
[2021-01-29] MEDS ORDERED: FLUBLOK(EGG FREE)(QUAD)INFLUENZA VACC 0.5ML SYRINGE 18YRS & OLDER IM ONE (09:00)
[2021-01-29] MEDS ORDERED: ASPIRIN 325 MG TAB PO SCH (09:00)
[2021-01-29 09:41] LABS: HEMATOCRIT 27.4 % (42.0-52.0); HEMOGLOBIN 9.3 g/dl (13.5-17.5); MEAN CORPUSCULAR HEMOGLOBIN 31.4 pg (27.0-33.0); MEAN CORPUSCULAR HGB CONC 33.9 g/dl (32.0-36.5); MEAN CORPUSCULAR VOLUME 92.6 fl (80.0-96.0); PLATELET COUNT, AUTOMATED 200 10^3/uL (150-450); RED BLOOD COUNT 2.96 10^6/uL (4.30-6.10); WHITE BLOOD COUNT 7.9 10^3/uL (4.0-10.0)
[2021-01-29 09:56] LABS: INR 1.3; PROTHROMBIN TIME 16.6 SECONDS (12.7-14.5)
[2021-01-29 10:35] LABS: ALBUMIN 2.2 GM/DL (3.2-5.2); BILIRUBIN,TOTAL 1.4 MG/DL (0.2-1.0); CREATININE FOR GFR 2.04 MG/DL (0.70-1.30); GLOMERULAR FILTRATION RATE 35.2 (>49); MAGNESIUM LEVEL 2.3 MG/DL (1.8-2.4); PHOSPHORUS LEVEL 4.8 MG/DL (2.5-4.9); TOTAL PROTEIN 4.5 GM/DL (6.4-8.2)
[2021-01-29] MEDS ORDERED: NS 1,000 ML IV SCH (10:50)
[2021-01-29 11:21] VITALS: BP 111/70
[2021-01-29] MEDS ORDERED: DEXTROSE 50% 50 ML SYRINGE IV STA ×3 (12:49→21:41)
[2021-01-29] MEDS ORDERED: HumuLIN R (REGULAR) INSULIN (NovoLIN R) **100U/ML** PER UNIT IV STA ×3 (12:49→21:41)
[2021-01-29 14:00] VITALS: BP 107/84
[2021-01-29] MEDS: PATIROMER SORBITEX CALCIUM 8.4 GM POWDER PACKET (VELTASSA) PO SCH (14:32)
[2021-01-29] MEDS: TAMSULOSIN 0.4 MG CAP PO SCH (17:53)
[2021-01-29 20:28] LABS: CALCIUM LEVEL 7.7 MG/DL (8.8-10.2); CREATININE FOR GFR 2.02 MG/DL (0.70-1.30); GLOMERULAR FILTRATION RATE 35.6 (>49); PHOSPHORUS LEVEL 5.2 MG/DL (2.5-4.9); POTASSIUM SERUM 5.9 MEQ/L (3.5-5.1)
[2021-01-29 22:00] VITALS: BP 108/65
[2021-01-30 00:42] LABS: CALCIUM LEVEL 7.9 MG/DL (8.8-10.2); CREATININE FOR GFR 1.89 MG/DL (0.70-1.30); GLOMERULAR FILTRATION RATE 38.4 (>49); POTASSIUM SERUM 5.3 MEQ/L (3.5-5.1)
[2021-01-30] MEDS: HEPARIN SOD (PORCINE) 5000UNITS/ML 1ML VIAL/SYRINGE SC SCH ×3 (05:38→21:30)
[2021-01-30 06:00] VITALS: BP 108/67
[2021-01-30 06:04] LABS: HEMATOCRIT 26.4 % (42.0-52.0); HEMOGLOBIN 8.9 g/dl (13.5-17.5); MEAN CORPUSCULAR HEMOGLOBIN 31.3 pg (27.0-33.0); MEAN CORPUSCULAR HGB CONC 33.7 g/dl (32.0-36.5); PLATELET COUNT, AUTOMATED 175 10^3/uL (150-450); RED BLOOD COUNT 2.84 10^6/uL (4.30-6.10)
[2021-01-30 06:24] LABS: BILIRUBIN,TOTAL 1.5 MG/DL (0.2-1.0); CALCIUM LEVEL 7.6 MG/DL (8.8-10.2); CREATININE FOR GFR 1.81 MG/DL (0.70-1.30); GLOMERULAR FILTRATION RATE 40.4 (>49); MAGNESIUM LEVEL 1.9 MG/DL (1.8-2.4); PHOSPHORUS LEVEL 4.6 MG/DL (2.5-4.9); POTASSIUM SERUM 5.1 MEQ/L (3.5-5.1); TOTAL PROTEIN 4.2 GM/DL (6.4-8.2)
[2021-01-30 06:32] VITALS: BP 94/58
[2021-01-30 08:21] VITALS: BP 107/61
[2021-01-30] MEDS: LACTULOSE 20 GM/30 ML SYRUP UD PO SCH ×3 (08:29→21:30)
[2021-01-30] MEDS: OMEPRAZOLE 20MG CAP PO SCH (08:29)
[2021-01-30] MEDS: ASPIRIN 81MG ENTERIC TABLET PO SCH (08:48)
[2021-01-30] MEDS: PATIROMER SORBITEX CALCIUM 8.4 GM POWDER PACKET (VELTASSA) PO SCH (12:50)
[2021-01-30 14:00] VITALS: BP 105/61
[2021-01-30] MEDS: TAMSULOSIN 0.4 MG CAP PO SCH (17:40)
[2021-01-30 22:00] VITALS: BP 109/68
[2021-01-31] MEDS: HEPARIN SOD (PORCINE) 5000UNITS/ML 1ML VIAL/SYRINGE SC SCH (05:51)
[2021-01-31 06:00] VITALS: BP 112/69
[2021-01-31 06:15] VITALS: BP 104/69
[2021-01-31 08:20] VITALS: BP 111/76
[2021-01-31] MEDS: ASPIRIN 81MG ENTERIC TABLET PO SCH (08:53)
[2021-01-31] MEDS: OMEPRAZOLE 20MG CAP PO SCH (08:53)
[2021-01-31] MEDS: LACTULOSE 20 GM/30 ML SYRUP UD PO SCH (08:53)
[2021-01-31 09:30] LABS: CALCIUM LEVEL 7.6 MG/DL (8.8-10.2); CREATININE FOR GFR 1.87 MG/DL (0.70-1.30); GLOMERULAR FILTRATION RATE 38.9 (>49); PHOSPHORUS LEVEL 3.6 MG/DL (2.5-4.9); POTASSIUM SERUM 4.7 MEQ/L (3.5-5.1)
[2021-01-31] MEDS ORDERED: SPIR-10 PO (10:05)
== END 2021-01-31 12:13 | disposition home health service (06) | DRG 425 ==
LOC: M ED 14:28 → M ED INP 18:18 → ENRESERV 01-29 10:10 → M MSPAV 01-29 11:19
PROVIDERS: ADMIT Internal Medicine; ATTEND Internal Medicine
DX: E87.5 Hyperkalemia (principal); K76.7 Hepatorenal syndrome; N17.9 Acute kidney failure, unspecified; R18.8 Other ascites; K74.60 Unspecified cirrhosis of liver; E87.1 Hypo-osmolality and hyponatremia; T50.0X5A Adverse effect of mineralocorticoids and their antagonists, initial encounter; D64.9 Anemia, unspecified; N18.9 Chronic kidney disease, unspecified; Z85.07 Personal history of malignant neoplasm of pancreas; Z86.010 Personal history of colon polyps; Z79.82 Long term (current) use of aspirin; Z79.899 Other long term (current) drug therapy

== ENCOUNTER → 2021-02-01 | Outpatient (CLI) | payer BC ==
[~2021-02-01] MED LIST changes: +ASPI-161 PO; +OMEP-218 PO; +PROC10TA4 PO; -PROC10TA5 PO; +SODIUM BICARBONATE 8.4% INJ 50MEQ 50 ML VIAL As Ordered ONE; +SPIR-10 PO
[2021-02-01 12:35] VITALS: BP 96/53
--- NOTE | 2021-02-01 18:06 | REP ---
INDICATION: ASCITES The patient has a history of ascites COMPARISON: None. TECHNIQUE: The procedure was performed by THANH Meadows, under the direct supervision of Dr. Childress The risks and benefits of the procedure were explained to the patient and an informed consent was obtained both verbally and written. Directly prior to the start of the procedure a formal time-out was completed in the procedure room. The largest pocket of fluid was localized in the left flank using ultrasound guidance. The skin was prepped and draped in a sterile fashion. Eleven ML of buffered lidocaine was used as a local anesthetic. An 8-Dominican multi side-hole catheter was inserted using trocar technique. FINDINGS: 8200 mL of yellow ascites was removed and discarded. The patient tolerated the procedure well and there were no immediate complications. After the appropriate amount of monitored convalescence, the patient was discharged from the department. IMPRESSION: Ultrasound-guided paracentesis with removal of 8200 mL of yellow ascites. <Electronically signed by Abeba Alcocer > 02/01/21 1549 <Electronically signed by Darvin Childress > 02/01/21 [id number]
== END ==
LOC: M IRPRO 10:35
PROVIDERS: ATTEND Internal Medicine Gastroenterology
DX: R18.8 Other ascites (principal); K74.69 Other cirrhosis of liver; K75.81 Nonalcoholic steatohepatitis (NASH)

== ENCOUNTER 2021-02-04 18:45 | Observation (INO) | payer BC ==
[~2021-02-04] VITALS: Ht 179.1 cm; Wt 72.3 kg
[~2021-02-04 18:45] MED LIST changes: -SODIUM BICARBONATE 8.4% INJ 50MEQ 50 ML VIAL As Ordered ONE
[2021-02-04 20:42] LABS: BASO % 0.1 % (0.0-1.0); HEMATOCRIT 27.9 % (42.0-52.0); HEMOGLOBIN 9.6 g/dl (13.5-17.5); LYMPH # 1.4 10^3/uL (1.5-5.0); LYMPH % 11.4 % (24.0-44.0); MEAN CORPUSCULAR HEMOGLOBIN 31.2 pg (27.0-33.0); MEAN CORPUSCULAR HGB CONC 34.4 g/dl (32.0-36.5); MEAN CORPUSCULAR VOLUME 90.6 fl (80.0-96.0); MONO # 1.4 10^3/uL (0.0-0.8); MONO % 11.5 % (2.0-8.0); NEUTROPHILS # 9.2 10^3/uL (1.5-8.5); NEUTROPHILS % 76.4 % (36.0-66.0); PLATELET COUNT, AUTOMATED 182 10^3/uL (150-450); RED BLOOD COUNT 3.08 10^6/uL (4.30-6.10)
[2021-02-04] MEDS ORDERED: TAMSULOSIN 0.4 MG CAP PO SCH (21:00)
[2021-02-04 21:21] LABS: ALBUMIN 2.2 GM/DL (3.2-5.2); ALT/SGPT 31 U/L (12-78); BILIRUBIN,DIRECT 0.5 MG/DL (0.0-0.2); BILIRUBIN,TOTAL 1.4 MG/DL (0.2-1.0); BLOOD UREA NITROGEN 26 MG/DL (7-18); CALCIUM LEVEL 7.5 MG/DL (8.8-10.2); CARBON DIOXIDE LEVEL 23 MEQ/L (21-32); CHLORIDE LEVEL 95 MEQ/L (98-107); CK-MB VALUE MASS 1.2 NG/ML (<3.6); CPK CREATINE PHOSPHOKINASE 31 U/L (39-308); CREATININE FOR GFR 2.17 MG/DL (0.70-1.30); GLOMERULAR FILTRATION RATE 32.8 (>49); GLUCOSE, FASTING 124 MG/DL (70-100); LIPASE 13 U/L (73-393); MB/CK RELATIVE INDEX 3.87 (< OR =4); SODIUM LEVEL 128 MEQ/L (136-145); TOTAL PROTEIN 4.9 GM/DL (6.4-8.2); TROPONIN I < 0.02 NG/ML (< 0.10)
[2021-02-04] MEDS ORDERED: NS 1,000 ML IV SCH ×2 (21:30→23:00)
[2021-02-04 22:50] LABS: RSV AMPLIFICATION NEGATIVE (NEGATIVE)
--- NOTE | 2021-02-04 22:56 | HPEPDOC ---
[facility] Medical History & Physical Date of Admission Feb 04, 2021 Date of Service: Feb 04, 2021 History and Physical CHIEF COMPLAINT: Abnormal labshyponatremia HISTORY OF PRESENT ILLNESS: 66-year-old male history of pancreatic carcinoma status post Whipple procedure, nonalcoholic liver cirrhosis with ascites who gets routine paracentesis every 2 weeks presents to the hospital after being called by his doctor's office telling him to come to the hospital because of low sodium. Patient's sodium is 128 which is close to his baseline. Patient complains of fatigue as his chief complaint at this time. His recreation assistant in [place] recommended admission with IV fluids. Apart from fatigue patient feels that his baseline he denies any chest pain or shortness of breath. He tells me he is scheduled to have his next paracentesis next Monday. Patient will be admitted for observation because of his weakness to get some IV fluids PAST MEDICAL/SURGICAL HISTORY: pancreatic carcinoma (status post Whipple procedure) nonalcoholic cirrhosis hypertension R knee surgery SOCIAL HISTORY: Denies alcohol use Denies tobacco use Denies illicit drug use FAMILY HISTORY: Reviewed and none contributory to this admission ALLERGIES: Please see below. REVIEW OF SYSTEMS: 10 point review of systems complete all negative otherwise stated in HPI HOME MEDICATIONS: Please see below. PHYSICAL EXAMINATION: Constitutional: Awake and alert, in no apparent distress, appears weak ENT: Sclera are clear. Mucosa is moist. Respiratory: Lungs CTA bilaterally. No respiratory distress. No use of accessory muscles. Cardiovascular: RRR S1 and S2 are normal, no murmur Gastrointestinal: Abdomen is nontender, mild distention with fluid wave present, BS present. Midabdominal healed incision from the procedure. Musculoskeletal: 2+ bilateral lower extremity edema which patient tells me is chronic and a lot better than normal Neurologic: No focal neurological deficit. Mental Status: A&O x3, normal affect LABORATORY DATA: See below. IMAGING: See chart MICROBIOLOGY: Please see below. ASSESSMENT/PLAN 66-year-old male history of pancreatic carcinoma status post Whipple procedure, nonalcoholic liver cirrhosis with ascites who gets routine paracentesis every 2 weeks presents to the hospital because of hyponatremia with associated weakness. On forced I discussed with the patient that his hyponatremia is not too far off from his baseline and that his weakness is a symptom of chronic hyponatremia and will probably not significantly improve even with fluids however I did agree that we can do a trial at a lower rate of fluids to see if it helps with his symptoms. His cirrhosis is compensated at this time and his next scheduled therapeutic paracentesis as next Monday. I will continue his chronic home medications as appropriate and he will achieve DVT prophylaxis with heparin. A Yousef Hospitalist Vital Signs Vital Signs Date Time Temp Pulse Resp B/P (MAP) Pulse Ox O2 Delivery O2 Flow Rate FiO2 02/04/21 21:15 105/57 (73) 02/04/21 21:00 89 96 02/04/21 18:53 98.4 20 Room Air Laboratory Data Labs 24H Laboratory Tests 2 02/04/21 20:16: Immature Granulocyte % (Auto) 0.6, Neutrophils (%) (Auto) 76.4H, Lymphocytes (%) (Auto) 11.4L, Monocytes (%) (Auto) 11.5H, Eosinophils (%) (Auto) 0.0, Basophils (%) (Auto) 0.1, Neutrophils # (Auto) 9.2H, Lymphocytes # (Auto) 1.4L, Monocytes # (Auto) 1.4H, Eosinophils # (Auto) 0.0, Basophils # (Auto) 0.0, Nucleated Red Blood Cells % (auto) 0.0, Anion Gap 10, Glomerular Filtration Rate 32.8L, Calcium Level 7.5L, Total Bilirubin 1.4H, Direct Bilirubin 0.5H, Aspartate Amino Transf (AST/SGOT) 33, Alanine Aminotransferase (ALT/SGPT) 31, Alkaline Phosphatase 169H, Total Creatine Kinase 31L, Creatine Kinase MB 1.2, Creatine Kinase MB Relative Index 3.87, Troponin I < 0.02, Total Protein 4.9L, Albumin 2.2L, Albumin/Globulin Ratio 0.8, Lipase 13L 02/04/21 22:05: CBC/BMP Laboratory Tests 02/04/21 20:16 Home Medications Scheduled Aspirin (Aspirin EC) 81 Mg Tablet.dr, 81 MG PO DAILY Cholecalciferol (Vitamin D3) (Vitamin D3) 1,000 Unit Tablet, 1,000 UNITS PO DAILY Furosemide (Furosemide) 40 Mg Tablet, 40 MG PO DAILY Lactulose (Lactulose) 10 Gm/15 Ml Solution, 30 ML PO TID MORNING/DINNER/BEDTIME Magnesium Oxide (Magnesium Oxide) 400 Mg Tablet, 400 MG PO DAILY Omeprazole (Omeprazole) 20 Mg Capsule.dr, 20 MG PO DAILY Spironolactone (Spironolactone) 25 Mg Tablet, 25 MG PO BID Tamsulosin HCl (Flomax) 0.4 Mg Capsule, 0.4 MG PO QHS Allergies Coded Allergies: No Known Allergies (Unverified , 01/08/18) JENNA STARKEY MD Feb 04, 2021 22:56
[2021-02-04] MEDS ORDERED: SPIR-10 PO (23:40)
[2021-02-04] MEDS ORDERED: HOME MED LIST COMPLETE! XX SCH (23:45)
[2021-02-05] MEDS: LACTULOSE 20 GM/30 ML SYRUP UD PO SCH ×2 (00:27→09:15)
[2021-02-05 01:54] VITALS: BP 119/66
[2021-02-05 06:00] VITALS: BP 116/74
[2021-02-05 06:25] LABS: HEMATOCRIT 26.5 % (42.0-52.0); MEAN CORPUSCULAR HEMOGLOBIN 30.7 pg (27.0-33.0); MEAN CORPUSCULAR VOLUME 90.4 fl (80.0-96.0); PLATELET COUNT, AUTOMATED 151 10^3/uL (150-450); RED BLOOD COUNT 2.93 10^6/uL (4.30-6.10)
[2021-02-05 06:38] LABS: ALBUMIN 1.9 GM/DL (3.2-5.2); BILIRUBIN,TOTAL 1.5 MG/DL (0.2-1.0); CALCIUM LEVEL 7.3 MG/DL (8.8-10.2); CREATININE FOR GFR 1.82 MG/DL (0.70-1.30); GLOMERULAR FILTRATION RATE 40.1 (>49); MAGNESIUM LEVEL 2.5 MG/DL (1.8-2.4); POTASSIUM SERUM 4.8 MEQ/L (3.5-5.1); TOTAL PROTEIN 4.3 GM/DL (6.4-8.2)
[2021-02-05] MEDS ORDERED: FUROSEMIDE 40 MG TAB PO SCH (09:00)
[2021-02-05] MEDS ORDERED: SPIRONOLACTONE 25 MG TAB PO SCH (09:00)
[2021-02-05] MEDS ORDERED: HEPARIN SOD (PORCINE) 5000UNITS/ML 1ML VIAL/SYRINGE SC SCH (09:00)
[2021-02-05] MEDS ORDERED: MAGNESIUM OXIDE 400MG TAB (MAG-OX) PO SCH (09:00)
[2021-02-05] MEDS ORDERED: OMEPRAZOLE 20 MG CAP PO SCH (09:00)
--- NOTE | 2021-02-05 14:07 | DS.PDOC ---
Discharge Summary General Date of Admission Feb 04, 2021 at 18:46 Date of Discharge 02/05/2021 Discharge Summary PROCEDURES PERFORMED DURING STAY: [None]. ADMITTING DIAGNOSES / DISCHARGE DIAGNOSES: Acute on chronic hyponatremia s/p Leukocytosis Pancreatic carcinoma (s/p Whipple procedure) Cirrhosis (non-alcoholic) HTN CKD3 Anemia DVT prophylaxis COMPLICATIONS/CHIEF COMPLAINT: Chronic Hyponatremia. HISTORY OF PRESENT ILLNESS / HOSPITAL COURSE: Patient is a 66-year-old male with a PMHx of Pancreatic carcinoma (s/p Whipple procedure), Cirrhosis (non-alcoholic), HTN, who presented to the emergency room after he was advised by his primary care provider to come to the hospital for low sodium. Upon arrival, patient's sodium was 128. Patient chronically has hyponatremia ranging in the low 130s. Patient was admitted to the hospital service for further evaluation and treatment. Patient has received approximately a liter of fluid since admission and his sodium is corrected to 131. His diuretics were discontinued for 24 hours. Patient has been instructed to resume diuretics starting tomorrow. Patient gets regularly scheduled paracentesis every 1-2 weeks. His next scheduled paracen tesis is on Monday. Patient has been advised to remain compliant with treatment plan and medications and return to the ER if he experiences any problems. He's been advised to follow-up his primary care provider within the next 7 days. DISCHARGE MEDICATIONS: Please see below. ALLERGIES: Please see below. PHYSICAL EXAMINATION ON DISCHARGE: Vitals (See below) General: Lying in bed, appears comfortable, AAOx3 HEENT: NC, AT CVS: +S1S2 Lungs: Fair air entry b/l, no wheezing, rales or rhonchi Abdomen: Soft, ND, NT Extremities: +1 pitting edema, - Calf tenderness LABORATORY DATA: Please see below. IMAGING: None ACTIVITY: [As tolerated]. DISCHARGE PLAN: Follow-up with PCP and Nephrology within the next 7 days Remain compliant with treatment plan and medications Return to the ER if you experience any problems DISPOSITION: Home, Self-Care. DISCHARGE CONDITION: [Stable]. TIME SPENT ON DISCHARGE: 20 minutes. Vital Signs/I&Os Vital Signs Date Time Temp Pulse Resp B/P (MAP) Pulse Ox O2 Delivery O2 Flow Rate FiO2 02/05/21 06:00 96.6 92 16 116/74 (88) 99 Room Air I&O- Last 24 Hours up to 6 AM 02/05/21 06:00 Intake Total 800 ml Output Total 0 ml Balance 800 ml Laboratory Data Labs 24H Laboratory Tests 2 02/04/21 20:16: Immature Granulocyte % (Auto) 0.6, Neutrophils (%) (Auto) 76.4H, Lymphocytes (%) (Auto) 11.4L, Monocytes (%) (Auto) 11.5H, Eosinophils (%) (Auto) 0.0, Basophils (%) (Auto) 0.1, Neutrophils # (Auto) 9.2H, Lymphocytes # (Auto) 1.4L, Monocytes # (Auto) 1.4H, Eosinophils # (Auto) 0.0, Basophils # (Auto) 0.0, Nucleated Red Blood Cells % (auto) 0.0, Anion Gap 10, Glomerular Filtration Rate 32.8L, Calcium Level 7.5L, Total Bilirubin 1.4H, Direct Bilirubin 0.5H, Aspartate Amino Transf (AST/SGOT) 33, Alanine Aminotransferase (ALT/SGPT) 31, Alkaline Phosphatase 169H, Total Creatine Kinase 31L, Creatine Kinase MB 1.2, Creatine Kinase MB Relative Index 3.87, Troponin I < 0.02, Total Protein 4.9L, Albumin 2.2L, Albumin/Globulin Ratio 0.8, Lipase 13L 02/04/21 22:05: Coronavirus (COVID-19)(PCR) NEGATIVE, Influenza Type A (RT-PCR) NEGATIVE, Influenza Type B (RT-PCR) NEGATIVE, Respiratory Syncytial Virus (PCR) NEGATIVE 02/05/21 05:43: Nucleated Red Blood Cells % (auto) 0.0, Anion Gap 12, Glomerular Filtration Rate 40.1L, Calcium Level 7.3L, Total Bilirubin 1.5H, Aspartate Amino Transf (AST/SGOT) 39H, Alanine Aminotransferase (ALT/SGPT) 27, Alkaline Phosphatase 146H, Total Protein 4.3L, Albumin 1.9L, Albumin/Globulin Ratio 0.8, Magnesium Level 2.5H CBC/BMP Laboratory Tests 02/04/21 20:16 02/05/21 05:43 Discharge Medications Scheduled Cholecalciferol (Vitamin D3) (Vitamin D3) 1,000 Unit Tablet, 1,000 UNITS PO DAILY, (Reported) Furosemide (Furosemide) 40 Mg Tablet, 40 MG PO DAILY, (Reported) Lactulose (Lactulose) 10 Gm/15 Ml Solution, 30 ML PO TID, (Reported) MORNING/DINNER/BEDTIME Magnesium Oxide (Magnesium Oxide) 400 Mg Tablet, 400 MG PO DAILY, (Reported) Omeprazole (Omeprazole) 20 Mg Capsule.dr, 20 MG PO DAILY, (Reported) Spironolactone (Spironolactone) 25 Mg Tablet, 25 MG PO BID, (Reported) Tamsulosin HCl (Flomax) 0.4 Mg Capsule, 0.4 MG PO QHS, (Reported) Allergies Coded Allergies: No Known Allergies (Unverified , 01/08/18) DHAVAL VAUGHAN MD Feb 05, 2021 14:07
== END 2021-02-05 12:11 | disposition home or self-care (01) ==
LOC: M ED 18:45 → M ED INP 18:46 → ENRESERV 02-05 00:54 → M MSPAV 02-05 01:50
PROVIDERS: ADMIT Family Medicine; ATTEND Internal Medicine
DX: E87.1 Hypo-osmolality and hyponatremia (principal); D72.829 Elevated white blood cell count, unspecified; Z85.07 Personal history of malignant neoplasm of pancreas; K74.60 Unspecified cirrhosis of liver; I12.9 Hypertensive chronic kidney disease with stage 1 through stage 4 chronic kidney disease, or unspecified chronic kidney disease; N18.30 Chronic kidney disease, stage 3 unspecified; D64.9 Anemia, unspecified; Z79.82 Long term (current) use of aspirin; Z79.899 Other long term (current) drug therapy
CPT/HCPCS: 36415; 80048; 80053; 80076; 82550; 82553; 83690; 83735; 84484; 85025; 85027; 87631; 93041; 96360; 96361; 96372; 99285; J1644

== ENCOUNTER 2021-02-07 11:59 | Inpatient (IN) | payer BC ==
[2021-02-07] VITALS (7 sets, daily range): BP systolic 90–124; BP diastolic 51–78
[~2021-02-07] VITALS: Ht 177.8 cm; Wt 70.3 kg
[2021-02-07 12:51] LABS: BASO % 0.1 % (0.0-1.0); HEMATOCRIT 30.1 % (42.0-52.0); HEMOGLOBIN 10.3 g/dl (13.5-17.5); LYMPH # 0.4 10^3/uL (1.5-5.0); LYMPH % 3.3 % (24.0-44.0); MEAN CORPUSCULAR HEMOGLOBIN 31.3 pg (27.0-33.0); MEAN CORPUSCULAR HGB CONC 34.2 g/dl (32.0-36.5); MEAN CORPUSCULAR VOLUME 91.5 fl (80.0-96.0); MONO # 1.4 10^3/uL (0.0-0.8); MONO % 10.4 % (2.0-8.0); NEUTROPHILS # 11.4 10^3/uL (1.5-8.5); NEUTROPHILS % 85.8 % (36.0-66.0); PLATELET COUNT, AUTOMATED 222 10^3/uL (150-450); RED BLOOD COUNT 3.29 10^6/uL (4.30-6.10); WHITE BLOOD COUNT 13.2 10^3/uL (4.0-10.0)
--- NOTE | 2021-02-07 12:55 | REP ---
INDICATION: weakness and cough. COMPARISON: Multiple the latest 01/12/2021 TECHNIQUE: Portable FINDINGS: The technique utilized in obtaining the radiograph has magnified the cardiac silhouette and attenuated the interstitial markings. The cardiomediastinal silhouette lung lin are unchanged. Chronic changes seen in the right lung base status quo. No acute patchy parenchymal opacities or pleural effusions have developed. There is no change in the osseous structures. IMPRESSION: Stable appearing chronic changes <Electronically signed by Julio Paniagua > 02/07/21 [id number]
[2021-02-07 13:26] LABS: ALBUMIN 2.3 GM/DL (3.2-5.2); ALT/SGPT 40 U/L (12-78); BILIRUBIN,TOTAL 1.7 MG/DL (0.2-1.0); BLOOD UREA NITROGEN 25 MG/DL (7-18); C REACTIVE PROTEIN QUANTITATIV 1.87 MG/DL (0.00-0.30); CALCIUM LEVEL 7.8 MG/DL (8.8-10.2); CARBON DIOXIDE LEVEL 21 MEQ/L (21-32); CHLORIDE LEVEL 94 MEQ/L (98-107); CK-MB VALUE MASS < 1.0 NG/ML (<3.6); CPK CREATINE PHOSPHOKINASE 42 U/L (39-308); CREATININE FOR GFR 1.92 MG/DL (0.70-1.30); GLOMERULAR FILTRATION RATE 37.7 (>49); GLUCOSE, FASTING 120 MG/DL (70-100); LIPASE < 10 U/L (73-393); MB/CK RELATIVE INDEX 2.38 (< OR =4); POTASSIUM SERUM 4.9 MEQ/L (3.5-5.1); SODIUM LEVEL 127 MEQ/L (136-145); TOTAL PROTEIN 5.4 GM/DL (6.4-8.2); TROPONIN I < 0.02 NG/ML (< 0.10)
[2021-02-07] MEDS ORDERED: NS 1,000 ML IV SCH ×2 (13:45→21:15)
[2021-02-07] MEDS ORDERED: NS 1,000 ML IV ONE (14:10)
[2021-02-07] MEDS ORDERED: cefTRIAXone SOD 2 GM in D5W MINI-BAG PLUS 50 ML IV ONE (14:10)
--- NOTE | 2021-02-07 14:47 | REP ---
INDICATION: abdominal pain, nausea, and leukocytosis. COMPARISON: 12/30/2020 latest prior TECHNIQUE: Limited noncontrast enhanced helical technique FINDINGS: There is no change in the lung bases There is ascites status quo. There is a nodular hepatic surface status quo. There is pneumobilia status quo. There is an abnormal left lobe the caudate ratio status quo. The spleen, pancreas, adrenal glands, and kidneys are unchanged. The abdominal aorta and para-aortic regions are unchanged. The bowel loops and the mesenteries are unchanged. There is no evidence of free air. There is no change in appearance of the osseous structures. IMPRESSION: Evidence of cirrhosis and ascites along with other chronic changes as described above. There has been no significant change compared to 12/30/2020. <Electronically signed by Julio Paniagua > 02/07/21 [id number]
[2021-02-07 15:26] LABS: OSMOLALITY SERUM 267 MOSM/KG (280-301)
[2021-02-07 15:31] LABS: FREE T4 1.24 NG/DL (0.76-1.46)
--- NOTE | 2021-02-07 15:44 | HPEPDOC ---
[facility] [place] Medical History & Physical Date of Admission Feb 07, 2021 Date of Service: Feb 07, 2021 History and Physical Chief complaint: Who presented to the emergency room after he woke up and said that he was fe eling sick and nauseated History of present illness: Patient is a 66-year-old male with a PMHx of Cirrhosis (2/2 LFOOD; Hx of Hepatic encephalopathy, Recurrent ascites), Pancreatic Carcinoma (s/p Whipple 2017), CKD3, Chronic hyponatremia, GERD who presented to the emergency room with complaints of nausea and 1 episode of vomiting this morning. Patient reported that yesterday he was fine, but when he went to bed and woke up, he felt sick and nauseated. He vomited once and describes the vomitus is clear without any evidence of blood. Patient reported associated diffuse abdominal discomfort. Denies any constipation or diarrhea. His last bowel movement was a few hours ago. Denies any dark colored stools. Denies any urinary discomfort or any fevers or chills at home. Patient denies any chest pain, shortness breath, cough or palpitations. Patient reports a reduced appetite, but denies any changes in his weight. Patient follows with hepatology in [place]. Hes is scheduled to receive paracentesis tomorrow. Past Medical History: Cirrhosis (2/2 FLOOD; Hx of Hepatic encephalopathy, Recurrent ascites), Pancreatic Carcinoma (s/p Whipple 2017), CKD3, Chronic hyponatremia, GERD Past Surgical History: R knee surgery Cholecystectomy Whipple procedure (2017; at [facility]) Allergies: See below Medications: See below Family History: - Family history reviewed and noncontributory Social History: - Denies the use of alcohol, tobacco or illicit drugs - Denies recent travel or sick contacts - Lives with Review of Systems: 10 point review of systems complete, all negative otherwise stated in HPI Physical exam: - Vitals: BP [136/59], HR [114], RR [18], Sat [100%RA], Temp [97.9F] - General: Lying in bed, Speaking in full sentences, Fatigued, but is able to answer questions; Ox3 - HEENT: NC, AT, PERRLA - CVS: Tachycardic, +S1S2 - Lungs: Fair air entry bilaterally, No appreciable wheezing / rales / rhonchi - Abdomen: Soft, Distended, Mild diffuse tenderness - Extremities: 3+ pitting edema of LE, No calf tenderness - Neuro: No focal motor or sensory deficit - Skin: No visible rashes Labs: See below Imaging: CXR 02/07: Stable appearing chronic changes CT Abdomen / Pelvis 02/07: Evidence of cirrhosis and ascites along with other chronic changes as described above. There has been no significant change compared to 12/30/2020. EKG: See below Assessment and Plan: Nausea / Vomiting / Abdominal discomfort - likely 2/2 spontaneous bacterial peritonitis - Patient reported that he woke up with symptoms - Currently, patients blood pressure is stable, although he is tachycardic - Score reveals diffuse abdominal discomfort with significant distention in 2+ pitting edema of his LE - Evidence of leukocytosis and lactic acidosis - Imaging noted above - Patient is scheduled to receive a paracentesis tomorrow; will send fluid for analysis / cytology - Will provide Albumin infusion at this time - Will provide broad spectrum antibiotics with Zosyn (Day #1) for intra- abdominal coverage Sepsis - Clinically patient does not exhibit any hypotension and given his physical exam reveals gross fluid overload, will hold IV fluids at this time - Will check blood cultures / procalcitonin / will send ascites fluid for analysis / UA / Procalcitonin - Will provide Albumin infusion [id number] / Broad spectrum antibiotics (See above) - Will continue with frequent vital sign checks - If patient begins to show signs of hypotension will start IV fluid hydration CKD3 - Cr baseline appears to be ~1.5; Cr currently does not appear to be too far from baseline - Will hold diuretics at this time - Nephrology was called on consultation; case discussed - will provide albumin infusion / antibiotics / IV fluids if hypotensive Cirrhosis 2/2 FLOOD - Hx of Hepatic encephalopathy and recurrent ascites - Will check coagulation profile - c/w Lactulose Pancreatic Carcinoma (s/p Whipple 2016) Chronic hyponatremia - likely 2/2 hypotonic hypovolemic etiology 2/2 ascites - Baseline sodium appears to be in the low 130s - Currently at 127 - Will check Osmolality serum & urine / Urine electrolytes / Thyroid function / Cortisol levels - Will hold diuretics at this time - Nephrology consulted; appreciate their input Gastrointestinal prophylaxis - Will start Protonix IV DVT prophylaxis - Will start Heparin SQ Code Status: - Full code Disposition: - Awaiting clinical improvement Vital Signs Vital Signs Date Time Temp Pulse Resp B/P (MAP) Pulse Ox O2 Delivery O2 Flow Rate FiO2 02/07/21 14:45 119/58 (78) 02/07/21 14:44 114 100 Room Air 02/07/21 12:00 97.9 18 Laboratory Data Labs 24H Laboratory Tests 2 02/07/21 12:22: Immature Granulocyte % (Auto) 0.4, Neutrophils (%) (Auto) 85.8H, Lymphocytes (%) (Auto) 3.3L, Monocytes (%) (Auto) 10.4H, Eosinophils (%) (Auto) 0.0, Basophils (%) (Auto) 0.1, Neutrophils # (Auto) 11.4H, Lymphocytes # (Auto) 0.4L, Monocytes # (Auto) 1.4H, Eosinophils # (Auto) 0.0, Basophils # (Auto) 0.0, Nucleated Red Blood Cells % (auto) 0.0, Anion Gap 12, Glomerular Filtration Rate 37.7L, Osmolality 267L, Lactic Acid Level 4.3*H, Calcium Level 7.8L, Total Bilirubin 1.7H, Aspartate Amino Transf (AST/SGOT) 60H, Alanine Aminotransferase (ALT/SGPT) 40, Alkaline Phosphatase 239H, Ammonia 30, Total Creatine Kinase 42, Creatine Kinase MB < 1.0, Creatine Kinase MB Relative Index 2.38, Troponin I < 0.02, C- Reactive Protein, Quantitative 1.87H, Total Protein 5.4#L, Albumin 2.3#L, Albumin/Globulin Ratio 0.7, Lipase < 10L, Thyroid Stimulating Hormone (TSH) 1.880, Free Thyroxine 1.24 02/07/21 15:07: CBC/BMP Laboratory Tests 02/07/21 12:22 Microbiology Microbiology 02/07/21 Blood Culture, Received Pending 02/07/21 Blood Culture, Received Pending Home Medications Scheduled Cholecalciferol (Vitamin D3) (Vitamin D3) 1,000 Unit Tablet, 1,000 UNITS PO DAILY Furosemide (Furosemide) 40 Mg Tablet, 40 MG PO DAILY Lactulose (Lactulose) 10 Gm/15 Ml Solution, 30 ML PO TID MORNING/DINNER/BEDTIME Magnesium Oxide (Magnesium Oxide) 400 Mg Tablet, 400 MG PO DAILY Omeprazole (Omeprazole) 20 Mg Capsule.dr, 20 MG PO DAILY Spironolactone (Spironolactone) 25 Mg Tablet, 25 MG PO BID Tamsulosin HCl (Flomax) 0.4 Mg Capsule, 0.4 MG PO QHS Allergies Coded Allergies: No Known Allergies (Unverified , 01/08/18) DHAVAL VAUGHAN MD Feb 07, 2021 15:44
[2021-02-07] MEDS ORDERED: ACETAMINOPHEN TAB 650MG DOSE (2X325MG) PO PRN (16:00)
[2021-02-07] MEDS ORDERED: HOME MED LIST COMPLETE! XX SCH (16:05)
[2021-02-07 16:19] LABS: RSV AMPLIFICATION NEGATIVE (NEGATIVE)
[2021-02-07 16:20] LABS: INR 1.2; PARTIAL THROMBOPLASTIN TIME 28.6 SECONDS (25.9-37.0); PROTHROMBIN TIME 15.7 SECONDS (12.7-14.5)
[2021-02-07 18:05] LABS: OSMOLALITY URINE 332 MOSM/KG (50-1400)
[2021-02-07 18:12] LABS: ALBUMIN 1.8 GM/DL (3.2-5.2); BILIRUBIN,TOTAL 1.3 MG/DL (0.2-1.0); CALCIUM LEVEL 6.1 MG/DL (8.8-10.2); CREATININE FOR GFR 1.65 MG/DL (0.70-1.30); GLOMERULAR FILTRATION RATE 44.9 (>49); POTASSIUM SERUM 4.2 MEQ/L (3.5-5.1); TOTAL PROTEIN 4.1 GM/DL (6.4-8.2)
[2021-02-07 19:18] LABS: SODIUM,RANDOM URINE < 10 MEQ/L
[2021-02-07] MEDS: LACTULOSE 20 GM/30 ML SYRUP UD PO SCH (19:56)
[2021-02-07] MEDS: PANTOPRAZOLE 40MG VIAL (C9113 PER 1) IV SCH (19:57)
[2021-02-07] MEDS: TAMSULOSIN 0.4 MG CAP PO SCH (20:15)
[2021-02-07] MEDS: PIPERACILLIN/TAZOBACTAM SOD 3.375 GM in D5W MINI-BAG PLUS 50 ML IV SCH (20:15)
[2021-02-07] MEDS: HEPARIN SOD (PORCINE) 5000UNITS/ML 1ML VIAL/SYRINGE SC SCH (21:13)
[2021-02-07 21:36] LABS: CALCIUM LEVEL 7.1 MG/DL (8.8-10.2); CREATININE FOR GFR 2.02 MG/DL (0.70-1.30); GLOMERULAR FILTRATION RATE 35.6 (>49); POTASSIUM SERUM 4.8 MEQ/L (3.5-5.1)
[2021-02-07] MEDS ORDERED: NS 500 ML IV ONE (22:15)
[2021-02-08] VITALS (46 sets, daily range): BP systolic 77–123; BP diastolic 47–69
[2021-02-08] MEDS: LACTULOSE 20 GM/30 ML SYRUP UD PO SCH ×4 (00:49→18:00)
[2021-02-08 02:25] LABS: ALBUMIN 2.6 GM/DL (3.2-5.2); BILIRUBIN,TOTAL 1.6 MG/DL (0.2-1.0); CALCIUM LEVEL 7.4 MG/DL (8.8-10.2); CREATININE FOR GFR 2.03 MG/DL (0.70-1.30); GLOMERULAR FILTRATION RATE 35.4 (>49); POTASSIUM SERUM 4.9 MEQ/L (3.5-5.1); TOTAL PROTEIN 4.9 GM/DL (6.4-8.2)
[2021-02-08] MEDS: PIPERACILLIN/TAZOBACTAM SOD 3.375 GM in D5W MINI-BAG PLUS 50 ML IV SCH ×4 (02:47→20:05)
[2021-02-08] MEDS: PANTOPRAZOLE 40MG VIAL (C9113 PER 1) IV SCH ×2 (05:36→18:03)
[2021-02-08] MEDS: HEPARIN SOD (PORCINE) 5000UNITS/ML 1ML VIAL/SYRINGE SC SCH (05:36)
[2021-02-08 05:51] LABS: BASO % 0.1 % (0.0-1.0); LYMPH # 0.2 10^3/uL (1.5-5.0); LYMPH % 2.3 % (24.0-44.0); MEAN CORPUSCULAR HEMOGLOBIN 31.2 pg (27.0-33.0); MEAN CORPUSCULAR HGB CONC 34.2 g/dl (32.0-36.5); MEAN CORPUSCULAR VOLUME 91.2 fl (80.0-96.0); MONO # 0.8 10^3/uL (0.0-0.8); MONO % 7.6 % (2.0-8.0); NEUTROPHILS # 8.8 10^3/uL (1.5-8.5); NEUTROPHILS % 89.1 % (36.0-66.0); PLATELET COUNT, AUTOMATED 117 10^3/uL (150-450); RED BLOOD COUNT 2.15 10^6/uL (4.30-6.10); WHITE BLOOD COUNT 9.9 10^3/uL (4.0-10.0)
--- NOTE | 2021-02-08 05:54 | ECGEPIP ---
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
[2021-02-08 05:57] LABS: HEMATOCRIT 19.6 % (42.0-52.0); HEMOGLOBIN 6.7 g/dl (13.5-17.5)
[2021-02-08 06:16] LABS: ALBUMIN 2.2 GM/DL (3.2-5.2); BILIRUBIN,TOTAL 1.4 MG/DL (0.2-1.0); CREATININE FOR GFR 2.15 MG/DL (0.70-1.30); GLOMERULAR FILTRATION RATE 33.1 (>49); MAGNESIUM LEVEL 2.4 MG/DL (1.8-2.4); POTASSIUM SERUM 4.5 MEQ/L (3.5-5.1); TOTAL PROTEIN 4.2 GM/DL (6.4-8.2)
[2021-02-08 06:40] LABS: HEMATOCRIT 19.2 % (42.0-52.0); HEMOGLOBIN 6.5 g/dl (13.5-17.5)
[2021-02-08] MEDS: SUCRALFATE SUSP 1GM/10ML UD PO SCH ×3 (07:08→18:04)
[2021-02-08] MEDS: OCTREOTIDE ACETATE 1,200 MCG in NS 238.8 ML IV SCH (07:09)
[2021-02-08 08:38] LABS: ABG BASE EXCESS -6.1 (-2.0-2.0); ABG HCO3 16.4 MEQ/L (22.0-26.0); ABG O2 SATURATION 97.4 % (95.0-99.0); ABG PARTIAL PRESSURE CO2 22.4 mmHg (35.0-45.0); ABG PARTIAL PRESSURE O2 99.9 mmHg (75.0-100.0); ABG STANDARD HCO3 19.4 MEQ/L (22.0-26.0); ABG TOTAL CO2 17.1 MEQ/L (23.0-31.0); ABG pH (ARTERIAL) 7.483 UNITS (7.350-7.450)
--- NOTE | 2021-02-08 10:31 | IPNPDOC ---
Text Note Date of Service The patient was seen on 02/08/21. NOTE Subjective: Patient is a 66-year-old male with a PMHx of Cirrhosis (2/2 FLOOD; Hx of Hepatic encephalopathy, Recurrent ascites), Pancreatic Carcinoma (s/p Whipple 2016), CKD3, Chronic hyponatremia, GERD who presented to the emergency room on 02/07 with complaints of nausea and 1 episode of vomiting this morning. Patient reported that on 02/06 he was fine, but when he went to bed and woke up, he felt sick and nauseated. He vomited once and describes the vomitus is clear without any evidence of blood. Patient reported associated diffuse abdominal discomfort. Patient was admitted to the hospital service for further evaluation and treatment of nephrology was called on consultation. Overnight patient had hypotension and noted to have a drop in Hg. He was transferred to the ICU for critical monitoring. Authorization Nurse and gun examiner were called on consultation. Patient was seen and examined at the bedside. Patient denies any lightheadedness, dizziness, chest pain, shortness of breath, cough or palpitations. Reports that his abdominal pain is doing better. He reports that he feels better than he did yesterday. Has had a bowel movement reported to be brown/yellow has a Rivera catheter in place. Lower extremities are still swollen. Objective: Vitals (See below) General: Lying in bed, appears comfortable but fatigued, AAOx3 HEENT: NC, AT CVS: +S1S2 Lungs: Fair air entry b/l, no evidence of wheezing, rales or rhonchi Abdomen: Soft, Distended, no-tenderness noted, +Rivera Extremities: 2+ pitting edema, - Calf tenderness Imaging: CXR 02/07: Stable appearing chronic changes CT Abdomen / Pelvis 02/07: Evidence of cirrhosis and ascites along with other chronic changes as described above. There has been no significant change compared to 12/30/2020. Assessment and Plan: Sepsis - Patient remains awake / alert / oriented x3 - Hypotension - Blood cultures 02/07: both positive for gram positive cocci in pairs and chains - PCT pending - Procalcitonin mildly elevated - UA negative - Will provide Albumin infusion [id number] / Broad spectrum antibiotics (See above) - Will repeat blood cultures - c/w IV fluid hydration with intermittent boluses and blood products (PRBC / Albumin) - Authorization Nurse has been consulted for additional assistance; Case discussed with Dr. Damon Nausea / Vomiting / Abdominal discomfort - likely 2/2 spontaneous bacterial peritonitis - Patient reported that he woke up with symptoms - Currently, patients blood pressure is stable, although he is tachycardic - Score reveals diffuse abdominal discomfort with significant distention in 2+ pitting edema of his LE - Leukocytosis has improved - Imaging noted above - Paracentesis will be postponed; will send fluid for analysis / cytology (re: Hypotension) - c/w Albumin and PRBC - c/w Zosyn (Day #2) for intra-abdominal coverage Acute blood loss anemia - Hg has had a significant drop - Patient has had an EGD/colonoscopy on 01/19 --- EGD had revealed small AVM that was cauterized --- Colonoscopy had revealed polyps that were 3-5 mm and a large polyp of 2.5 cm - Occult stool positive - c/w Protonix; Started Carafate / Octreotide drip - Patient will remain NPO - Consulted GI for likely EGD; case discussed with Dr. Ortiz CKD3 - Cr baseline appears to be ~1.5; Cr currently does not appear to be too far from baseline - Possibly component of hepatorenal syndrome - Diuretics on hold - Nephrology was called on consultation; appreciate their input Lactic acidosis - Will c/w intravascular repletion with IV fluids / albumin / PRBC Cirrhosis 2/2 FLOOD - Hx of Hepatic encephalopathy and recurrent ascites - INR noted - Will check repeat INR / PTT / Fibrinogen / FDP - c/w Lactulose Pancreatic Carcinoma (s/p Whipple 2016) Chronic hyponatremia - likely 2/2 hypotonic hypovolemic etiology 2/2 ascites - Baseline sodium appears to be in the low 130s - UA noted; FENa of 0.1% - Thyroid function / Cortisol levels - pending - Diuretics on hold - Nephrology consulted; appreciate their input Gastrointestinal prophylaxis - c/w Protonix IV DVT prophylaxis - s/p Heparin - c/w TEDs/Sequentials Code Status: - Full code Disposition: - Awaiting clinical improvement VS,Jim, I+O VS, Jim, I+O Laboratory Tests 02/07/21 12:22 02/07/21 17:29 02/07/21 20:58 02/08/21 01:40 02/08/21 05:30 02/08/21 06:23 Vital Signs Date Time Temp Pulse Resp B/P (MAP) Pulse Ox O2 Delivery O2 Flow Rate FiO2 02/08/21 10:02 98.7 76 16 88/54 99 Room Air I&O- Last 24 Hours up to 6 AM 02/08/21 06:00 Intake Total 1800.0 ml Output Total 250 ml Balance 1550.0 ml DHAVAL VAUGHAN MD Feb 08, 2021 10:31
[2021-02-08 10:50] LABS: TOTAL T3 40.4 NG/DL (60.0-181.0)
[2021-02-08] MEDS ORDERED: NS 500 ML IV ONE (11:50)
[2021-02-08 13:00] LABS: ALBUMIN 2.5 GM/DL (3.2-5.2); BILIRUBIN,TOTAL 3.2 MG/DL (0.2-1.0); CALCIUM LEVEL 7.3 MG/DL (8.8-10.2); CREATININE FOR GFR 2.03 MG/DL (0.70-1.30); GLOMERULAR FILTRATION RATE 35.4 (>49); MAGNESIUM LEVEL 2.6 MG/DL (1.8-2.4); POTASSIUM SERUM 4.8 MEQ/L (3.5-5.1); TOTAL PROTEIN 4.6 GM/DL (6.4-8.2)
[2021-02-08] MEDS: MIDODRINE 5 MG TAB PO SCH ×2 (13:01→16:00)
[2021-02-08] MEDS ORDERED: SUGAMMADEX SODIUM 500 MG/5 ML VIAL (BRIDION) As Ordered ONE (13:33)
[2021-02-08] MEDS ORDERED: propofoL 200 MG/20 ML VIAL As Ordered ONE (13:33)
[2021-02-08] MEDS ORDERED: ROCURONIUM BROMIDE 50 MG/5 ML VIAL As Ordered ONE (13:33)
[2021-02-08] MEDS ORDERED: fentaNYL 100 MCG/2 ML INJECTION (J3010) As Ordered ONE (13:33)
[2021-02-08] MEDS ORDERED: LIDOCAINE 2% 100MG/5ML SDV (FOR ANES.) As Ordered ONE (13:33)
[2021-02-08] MEDS ORDERED: ONDANSETRON 4MG/2ML VIAL As Ordered ONE (13:35)
[2021-02-08] MEDS ORDERED: dexameTHASONE 4 MG/ML 1ML VIAL (J1100 PER 1MG) As Ordered ONE (13:35)
[2021-02-08] MEDS ORDERED: LIDOCAINE 1% MDV 20ML VIAL As Ordered ONE (13:53)
[2021-02-08 15:56] LABS: HEMATOCRIT 31.2 % (42.0-52.0); MEAN CORPUSCULAR HEMOGLOBIN 30.8 pg (27.0-33.0); MEAN CORPUSCULAR HGB CONC 34.6 g/dl (32.0-36.5); MEAN CORPUSCULAR VOLUME 88.9 fl (80.0-96.0); PLATELET COUNT, AUTOMATED 117 10^3/uL (150-450); RED BLOOD COUNT 3.51 10^6/uL (4.30-6.10); WHITE BLOOD COUNT 10.9 10^3/uL (4.0-10.0)
[2021-02-08 16:03] LABS: HEMOGLOBIN 10.8 g/dl (13.5-17.5)
[2021-02-08 16:11] LABS: INR 1.8; PROTHROMBIN TIME 21.3 SECONDS (12.7-14.5)
[2021-02-08 16:12] LABS: PARTIAL THROMBOPLASTIN TIME 54.1 SECONDS (25.9-37.0)
--- NOTE | 2021-02-08 17:00 | REP ---
INDICATION: Will likel need levophed. COMPARISON: None. TECHNIQUE: The procedure was performed under the direct supervision of Dr. Childress. The procedure was performed in the ICU at the bedside. The risks and benefits of the procedure were explained to the patient and informed consent was obtained. The right basilic vein was localized using ultrasound guidance. The skin was prepped and draped in a sterile fashion. 1 mL of 1% lidocaine was used as a local anesthetic. Using ultrasound guidance the basilic vein was cannulated and a 0.018 guidewire was inserted. The needle was removed and a 5.5 Estonian dilator and peel-away sheath was inserted over the guidewire. A 5.5 Estonian dual lumen catheter was cut to a length of 40 cm. The dilator was removed and the catheter was inserted over the guidewire. A portable chest x-ray was performed and the image demonstrates the tip of the catheter to be in the SVC. The peel-away sheath was removed and the catheter was flushed with heparinized saline as per hospital protocol. The catheter was affixed to the skin and a sterile dressing was applied. The patient tolerated the procedure well and there were no immediate complications. Estimated blood loss: Less than 3 mL. FINDINGS: None IMPRESSION: PICC line insertion right basilic vein with the tip ending in the SVC. <Electronically signed by David Peter > 02/08/21 [id number] <Electronically signed by Darvin Childress > 02/08/21 [id number]
[2021-02-08] MEDS ORDERED: fentaNYL 100 MCG/2 ML INJECTION (J3010) IV PRN (17:10)
[2021-02-08] MEDS ORDERED: ONDANSETRON 4MG/2ML VIAL IV PRN (17:10)
[2021-02-08] MEDS ORDERED: LR 1,000 ML IV SCH (17:10)
--- NOTE | 2021-02-08 17:18 | ROOR ---
Patient Name: Massimo Glez Procedure Date: 02/08/2021 1:58 PM Date of : 1955 Age: 66 Gender: Male Note Status: Finalized Procedure: Upper GI endoscopy Indications: Acute post hemorrhagic anemia, Cirrhosis rule out esophageal varices Providers: Massimo Ortiz MD Referring MD: 2. Inpatient 2. Inpatient Requesting Provider: Medicines: Monitored Anesthesia Care Complications: No immediate complications. Procedure: Pre-Anesthesia Assessment: - The heart rate, respiratory rate, oxygen saturations, blood pressure, adequacy of pulmonary ventilation, and response to care were monitored throughout the procedure. - The heart rate, respiratory rate, oxygen saturations, blood pressure, adequacy of pulmonary ventilation, and response to care were monitored throughout the procedure. The Endoscope was introduced through the mouth, and advanced to the jejunum. The upper GI endoscopy was accomplished without difficulty. The patient tolerated the procedure well. Findings: The examined esophagus was normal. 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 The gastrojejunal anastomosis was characterized by healthy appearing mucosa. This was traversed. The efferent limb was examined. The afferent limb was examined. The examined jejunum was normal. Impression: - Normal esophagus. - Normal gasric remnant with clear bilious fluid. - Antrectomy/Patent Billroth II anastomosis type anatomy was found, characterized by healthy appearing mucosa. - Normal efferent and afferent limbs with clear/bilious fluid. (both limbs examined to the hub of scope) - No specimens collected. (- No esophageal varices, No gastric varices, No evidence of anastomotic ulcer or GAVE/Vascular ectasia, No bleeding source, No evidence of recent bleeding seen on this exam). Recommendation: - Observe patient's clinical course.(Pt is s/p good quality, complete colonoscopy on 01/19/21 without source of blood loss. He had seven various sized (4 mm-2.5 cm) benign adenomatous polyps removed) - There is no evidence of acute GI bleeding accounting for a drop of nearly 4 grams of Hb overnight. Would look elsewhere for causes for acute anemia. Procedure Code(s): --- Professional --- 28173, Esophagogastroduodenoscopy, flexible, transoral; diagnostic, including collection of specimen(s) by brushing or washing, when performed (separate procedure) Diagnosis Code(s): --- Professional --- K74.60, Unspecified cirrhosis of liver D62, Acute posthemorrhagic anemia Z98.0, Intestinal bypass and anastomosis status CPT copyright 2019 [employer]. All rights reserved. The codes documented in this report are preliminary and upon button riveter review may be revised to meet current compliance requirements. Massimo Ortiz MD Massimo Ortiz MD 02/08/2021 5:18:18 PM Electronically signed by Massimo Ortiz MD Number of Addenda: 0 Note Initiated On: 02/08/2021 1:58 PM Estimated Blood Loss: Estimated blood loss: none.
[2021-02-08] MEDS: SODIUM CHLORIDE 0.9% INJ 10 ML SYR IV SCH (18:04)
[2021-02-08] MEDS: TAMSULOSIN 0.4 MG CAP PO SCH (20:05)
[2021-02-08 20:32] LABS: HEMATOCRIT 33.2 % (42.0-52.0); HEMOGLOBIN 11.3 g/dl (13.5-17.5); LYMPH # 0.1 10^3/uL (1.5-5.0); LYMPH % 1.4 % (24.0-44.0); MEAN CORPUSCULAR HEMOGLOBIN 30.8 pg (27.0-33.0); MEAN CORPUSCULAR VOLUME 90.5 fl (80.0-96.0); MONO # 0.2 10^3/uL (0.0-0.8); MONO % 2.6 % (2.0-8.0); NEUTROPHILS # 6.9 10^3/uL (1.5-8.5); NEUTROPHILS % 95.4 % (36.0-66.0); PLATELET COUNT, AUTOMATED 119 10^3/uL (150-450); RED BLOOD COUNT 3.67 10^6/uL (4.30-6.10); WHITE BLOOD COUNT 7.2 10^3/uL (4.0-10.0)
[2021-02-08 21:04] LABS: ALBUMIN 2.4 GM/DL (3.2-5.2); BILIRUBIN,TOTAL 6.4 MG/DL (0.2-1.0); CALCIUM LEVEL 7.1 MG/DL (8.8-10.2); CREATININE FOR GFR 1.99 MG/DL (0.70-1.30); GLOMERULAR FILTRATION RATE 36.2 (>49); MAGNESIUM LEVEL 2.5 MG/DL (1.8-2.4); POTASSIUM SERUM 4.8 MEQ/L (3.5-5.1); TOTAL PROTEIN 4.5 GM/DL (6.4-8.2)
[2021-02-09] VITALS (25 sets, daily range): BP systolic 92–122; BP diastolic 55–79
[2021-02-09] MEDS: SUCRALFATE SUSP 1GM/10ML UD PO SCH ×4 (00:20→17:45)
[2021-02-09] MEDS: PIPERACILLIN/TAZOBACTAM SOD 3.375 GM in D5W MINI-BAG PLUS 50 ML IV SCH ×4 (03:00→20:51)
[2021-02-09 04:56] LABS: HEMATOCRIT 30.9 % (42.0-52.0); HEMOGLOBIN 10.8 g/dl (13.5-17.5); LYMPH # 0.2 10^3/uL (1.5-5.0); LYMPH % 4.6 % (24.0-44.0); MEAN CORPUSCULAR HEMOGLOBIN 31.1 pg (27.0-33.0); MONO # 0.3 10^3/uL (0.0-0.8); NEUTROPHILS # 4.5 10^3/uL (1.5-8.5); NEUTROPHILS % 89.4 % (36.0-66.0); PLATELET COUNT, AUTOMATED 115 10^3/uL (150-450); RED BLOOD COUNT 3.47 10^6/uL (4.30-6.10)
[2021-02-09 05:25] LABS: BILIRUBIN,TOTAL 4.2 MG/DL (0.2-1.0); CALCIUM LEVEL 7.3 MG/DL (8.8-10.2); CREATININE FOR GFR 1.83 MG/DL (0.70-1.30); GLOMERULAR FILTRATION RATE 39.9 (>49); MAGNESIUM LEVEL 2.3 MG/DL (1.8-2.4); POTASSIUM SERUM 5.1 MEQ/L (3.5-5.1); TOTAL PROTEIN 4.1 GM/DL (6.4-8.2)
[2021-02-09] MEDS: LACTULOSE 20 GM/30 ML SYRUP UD PO SCH ×4 (06:22→17:46)
[2021-02-09] MEDS: SODIUM CHLORIDE 0.9% INJ 10 ML SYR IV SCH ×2 (06:23→17:47)
[2021-02-09] MEDS: PANTOPRAZOLE 40MG VIAL (C9113 PER 1) IV SCH ×2 (06:23→17:47)
[2021-02-09] MEDS: OCTREOTIDE ACETATE 1,200 MCG in NS 238.8 ML IV SCH (06:23)
--- NOTE | 2021-02-09 07:20 | CR ---
CONSULTATION DATE: 02/07/2021 REFERRING PHYSICIAN: Estefany Hazel MD REASON FOR CONSULTATION: Acute kidney injury in the setting of septic shock. HISTORY OF PRESENT ILLNESS: Mr. Massimo Glez is a 66-year-old male with a past medical history of cirrhosis secondary to nonalcoholic steatohepatitis with a history of hepatic encephalopathy and recurrent ascites and chronic hypervolemic, hyponatremia secondary to cirrhosis. The patient also has a history of pancreatic carcinoma, status post Whipple in 2016 and a history of recently worsening anemia recently this summer. I reviewed his prior old renal panels and the patient appears to have a baseline creatinine of less than 1. However, he has multiple documented recurrent acute kidney injuries and appears to be prone to a kidney injury likely in the setting of chronic decompensated cirrhosis. The patient presented to the emergency room yesterday with complaint of nausea and vomiting and diffuse abdominal discomfort. He does intermittently receive paracentesis and I note the last three paracenteses were on January 12, January 25 and February 01. On his most recent paracentesis on February 01, 8.2 liters were removed. He came into the emergency room with a mild leukocytosis (white count 13.2) and mild anemia (hemoglobin 10.3). However, overnight his hemoglobin did drop to 6.7 with a repeat check for verification which confirmed a hemoglobin of 6.5. On admission, patient was in kidney injury with a creatinine of 1.9 and BUN of 25 on admission and there was a chronic, persistent lactic acidosis and patient was noted to be hypotensive overnight with systolic blood pressure mostly 70s to 80s. He is being transfused two units of blood this morning. His urine output has been 4 and nephrology evaluation was requested in view of his recurrent kidney injury. PAST MEDICAL HISTORY: 1. Decompensated cirrhosis with recurrent ascites, paracentesis dependent secondary to nonalcoholic steatohepatitis. 2. History of hepatic encephalopathy. 3. Chronic hypervolemic hyponatremia secondary to decompensated cirrhosis. 4. Hypoalbuminemia. 5. Thrombocytopenia. 6. GERD. 7. History of recurrent acute kidney injuries but with a baseline creatinine of less than 1. 8. Pancreatic carcinoma, status post Whipple in 2016. 9. Diastolic congestive heart failure (echocardiogram, November, with grade 1 diastolic dysfunction). PAST SURGICAL HISTORY: 1. Right knee surgery. 2. Cholecystectomy. 3. Whipple procedure at [facility] in 2017. 4. Multiple recurrent large volume paracentesis. ALLERGIES: No known drug allergies. HOME MEDICATIONS: Reviewed and include: 1. Vitamin D 1000 units daily. 2. Lasix 40 mg p.o. daily. 3. Lactulose 30 mL p.o. three times a day. 4. Magnesium oxide 400 mg daily. 5. Omeprazole 20 mg p.o. daily. 6. Spironolactone 25 mg p.o. b.i.d. 7. Flomax 4 mg p.o. q.h.s. SOCIAL HISTORY: He is an ex-smoker, no current alcohol use, no drug use. FAMILY HISTORY: None pertinent. REVIEW OF SYSTEMS: Constitutional: He reports weakness, fatigue, lethargy. ENT: He denies rhinorrhea, epistaxis or odynophagia. Eyes: Denies visual changes or tearing. Cardiac: Reports chronic leg edema. Denies palpitations or chest pain. Gastrointestinal: Reports nausea, abdominal pain, recurrent ascites, history of multiple paracentesis, cirrhosis. Genitourinary: Reports currently having Rivera catheter and diminished urine output. Denies any recent dysuria or hematuria while he was at home. Endocrine: Denies thyroid issues or diabetes. Neurologic: He has a history of hepatic encephalopathy, denies syncope or seizure. Musculoskeletal: Reports leg swelling, denies myalgias or arthralgias. Skin: Denies any new rashes or ulcers. Hematologic: Reports anemia and pending blood transfusion. Remainder of review of systems is negative or as per HPI. PHYSICAL EXAMINATION: Vital signs: Temperature 98.9, pulse 76, blood pressure 86/56, saturating 95-98% on room air. Intake yesterday was 1.2 liters. Urine output was only 150 mL Weight in bed scale today is 71.7 kg. General: Patient is seen lying in bed in the intensive care unit chronically ill-appearing male, looks fatigued but is not in any acute distress, oriented x3, cooperative with physical exam and answers simple questions appropriately. HEENT: There is some mild scleral icterus. Tongue is moist. Neck: Supple. Jugular veins are elevated. Heart sounds are tachycardic, S-1, S-2. There is 2+ pitting edema of the lower extremities that comes up to the thighs. Lungs: Show diminished breath sounds at the bases but there is no crackle or rale. He is comfortable on room air. Abdomen: Soft and there is ascites present and there is generalized tenderness diffusely. Genitourinary: Shows indwelling Rivera catheter. Skin: Shows pallor and some jaundice mildly. Neurologic: The patient is oriented x3, cooperative with physical exam and answers simple questions appropriately. LABORATORY DATA: Inpatient laboratory studies show sodium 127, potassium 4.8, bicarbonate 22, BUN 27, creatinine 1.9, lactic acid 3.6, magnesium 2.5, total bilirubin 6.4, ammonia 30, albumin 2.4, INR 1.8. Urine random sodium is less than 10. Hemoglobin 6.5, repeat hemoglobin 10.8 after two units of blood, white count 7.2. Microbiology: Blood cultures preliminary shows gram positive cocci in pairs and chains x2 sets. Stool occult blood test was positive. Repeat blood cultures are pending. CT, abdomen and pelvis done yesterday without contrast shows ascites, nodular hepatic surface and no obstructive uropathy. Chest x-ray done yesterday shows no pleural effusion. INPATIENT MEDICATIONS: Patient has received thus far a total of 2 liters of normal saline and is currently on Zosyn 3.375 gm IV q.6 hourly, Octreotide at 10 mL per hour, Tylenol p.r.n., lactulose 30 mL p.o. q.6 hourly, Protonix 40 mg IV q.12 hourly, Carafate 1 gm p.o. q.6 hourly, Flomax 0.4 mg p.o. q.h.s. I started the patient also on midodrine 5 mg p.o. three times a day. PROBLEMS: 1. Nonoliguric acute kidney injury in the setting of septic shock and severe anemia. Prior labs were reviewed. The patient has a baseline creatinine of less than 1 but does have a history of recurrent acute kidney injuries and likely has easily provoked renal dysfunction because of chronic underlying decompensated cirrhosis. His current acute kidney injury is not secondary to hepatorenal syndrome. Rather, it is secondary to septic shock. The patient has positive blood cultures x2 sets. He is significantly hypotensive with systolic overnight mostly in the 80s and he has received thus far a total of two liters of normal saline. He is also significantly anemic and is being transfused two units of packed red blood cells this morning and also did get a total of six months of albumin since admission. Given that he has received IV fluid and blood products and given that the patient does have chronic hypervolemia secondary to his cirrhosis, I would suggest to proceed with initiation of pressor support if his blood pressure remains low and I would target for MAP of 70 rather than 65. At the present time, I have ordered midodrine 5 mg three times a day and I have discussed with Dr. Hazel regarding probable need for central line placement if the patient's blood pressure remains low. His kidneys are hypoperfusing as evidenced by the urine sodium of less than 10 and he is having renal hypoperfusion because of sepsis and low blood pressures coupled with anemia. 2. Decompensated cirrhosis with recurrent ascites. The patient has nonalcoholic steatohepatitis and has a history of hepatic encephalopathy. He is paracentesis dependent. I see that he has had three large volume paracentesis procedures done within the past month, typically has around 8 liters removed with each treatment. Patient has poor prognostic markers including elevated INR, chronic hyponatremia, current kidney injury and rising total bilirubin. His calculated MELD-NA score is 31 points, giving a 90 day mortality of about 30%. If the patient's renal function does not improve, I would consider him to be an extremely poor candidate for renal replacement therapy. 3. Acute anemia. Patient's hemoglobin was down to 6.7 this morning from 10.3 on admission and a repeat hemoglobin was drawn to verify and was also low at 6.5. He was receiving heparin subcu. This was stopped. Patient is being transfused two units packed red blood cells this morning. He is on Carafate and he is on Protonix and gastroenterology is following as well and he is for possible scope given the sudden drop in his hemoglobin and the fact that his stool occult blood was positive. He is NPO at this time. 4. Hypervolemic hyponatremia. Patient has chronic hyponatremia secondary to chronic decompensated cirrhosis with ascites. His diuretics are presently held as he is septic, hypotensive and has poor renal perfusion. He also does have grade 1 diastolic dysfunction on recent echocardiogram. His sodium level will improve as his renal function improves and the most important element that will help with that is improving his blood pressure. 5. Septic shock. Blood cultures are positive x2 sets for gram positive cocci in pairs and chains. His last paracentesis was on February 01. Repeat blood cultures are pending. ? SBP. He has received two liters of normal saline. I have started him on midodrine. He has also received IV albumin. He is on Octreotide and he has received blood product and albumin. All of these are to help with his effective circulating volume and to improve his blood pressure. He may ultimately require a pressor if his blood pressure remains poor. Thank you for involving me in the care of Mr. Glez.
[2021-02-09] MEDS: MIDODRINE 5 MG TAB PO SCH ×3 (08:36→17:44)
--- NOTE | 2021-02-09 12:21 | IPNPDOC ---
Text Note Date of Service The patient was seen on 02/09/21. NOTE Subjective: -Afebrile, now normotensive -Denies any abdominal pain, chest pain, shortness of breath, cough or palpitations. Objective: Vitals: See below General: Sitting up in bed, chronic ally ill appearing, thing, NAD, AAOx3 HEENT: NC, AT CVS: RRR, +S1S2, no noted m/r/g Lungs: CTAB, no evidence of wheezing, rales or rhonchi Abdomen: Soft, Distended, no-tenderness noted, +shifting dullness Extremities: 2+ pitting edema, - Calf tenderness Labs: Reviewed WBC 5 Hgb 10.8 platelets 115 na 129 K 5.1 Cr 1.83 Ca 7.3 mag 2.3 AST 25 ALT 23 Tbili 4.2 Fibrinogen 19 Imaging: CXR 02/07: Stable appearing chronic changes CT Abdomen / Pelvis 02/07: Evidence of cirrhosis and ascites along with other chronic changes as described above. There has been no significant change compared to 12/30/2020. Assessment: 66 yo M with FLOOD cirrhosis, CKD3 and hx of GIB who presented with abdominal pain and fatigue and admitted for severe sepsis presumed 2/2 SBP, acute on chronic anemia and KAILEE that has improved with antibiotics, blood transfusion and albumin administration. Severe sepsis: resolved - Blood cultures 02/07: both positive for gram positive cocci in pairs and chains - Procalcitonin mildly elevated - UA negative - s/p fluids, albumin and pRBCs - Repeat blood cultures negative to date - was started on midodrine by nephrology Nausea / Vomiting / Abdominal discomfort - Potentially 2/2 spontaneous bacterial peritonitis - Leukocytosis has improved - Imaging noted above - Paracentesis due today, to send fluid for analysis and cytology - s/p Albumin and PRBC, to get albumin post paracentesis - c/w Zosyn (Day #3) for intra-abdominal coverage Acute blood loss anemia - Hg has had a significant drop - Patient had an EGD/colonoscopy on 01/19 --- EGD had revealed small AVM that was cauterized --- Colonoscopy had revealed polyps that were 3-5 mm and a large polyp of 2.5 cm - Occult stool positive - c/w Protonix; Started Carafate, will dc octreotide gtt at this time -Had EGD w/ Dr. Ortiz, unrevealing for source of bleeding Acute on chronic anemia, thrombocytopenia and hyperbilirubinemia potentially 2/2 DIC i/s/o sepsis Has acute on chronic anemia, thrombocytopenia, coagulopathy and low fibrinogen with hyperbilirubinemia. I suspect that he had some transient DIC that contributed to the acute on chronic anemia while there was a greater suspicion of overt GIB. -INR improved yesterday. will continue holding anticoagulants, daily fibrinogen for goal >200 or else if decreasing to give fibrinogen. will also check daily CBC, INR, PTT, fibrinogen and haptoglobin CKD3: improving - Cr baseline appears to be ~1.5 - Possibly component of hepatorenal syndrome - Diuretics on hold - Nephrology was called on consultation; appreciate their input Lactic acidosis: resolved - s/p intravascular repletion with IV fluids / albumin / PRBC Cirrhosis 2/2 FLOOD - Hx of Hepatic encephalopathy and recurrent ascites - INR elevated with ongoing coagulopathy, KAILEE, hyperbili with a MELD of 31, with 30% mortality risk in 3m. - c/w Lactulose Pancreatic Carcinoma (s/p Whipple 2016) Chronic hyponatremia - likely 2/2 hypotonic hypovolemic etiology 2/2 ascites - Baseline sodium appears to be in the low 130s - UA noted; FENa of 0.1% - Thyroid function / Cortisol levels unrevealing - Diuretics on hold - Nephrology consulted; appreciate their input Gastrointestinal prophylaxis - c/w Protonix IV DVT prophylaxis - s/p Heparin - c/w TEDs/Sequentials Code Status: - Full code Disposition: - Awaiting clinical improvement VS,Jim, I+O VS, Jim, I+O Laboratory Tests 02/08/21 12:17 02/08/21 15:37 02/08/21 20:11 02/09/21 04:40 02/09/21 06:00 Vital Signs Date Time Temp Pulse Resp B/P (MAP) Pulse Ox O2 Delivery O2 Flow Rate FiO2 02/09/21 11:36 74 18 100 Room Air 02/09/21 08:00 110/64 (79) 02/09/21 07:00 99.2 02/08/21 17:30 2.0 I&O- Last 24 Hours up to 6 AM 02/09/21 06:00 Intake Total 2415.0 ml Output Total 680 ml Balance 1735.0 ml MED VANG MD Feb 09, 2021 12:20
--- NOTE | 2021-02-09 12:23 | REP ---
INDICATION: edema, thrombocytopenia, eval for dvt. COMPARISON: None. TECHNIQUE: Bilateral lower extremity duplex venous scanning is performed from the groin to the ankle level. FINDINGS: The deep veins are anechoic and fully compressible from the groin to the popliteal fossa in the left and right lower extremity. Color flow imaging is homogeneous. Spectral Doppler interrogation demonstrates intact respiratory variation in flow and normal manual augmentation of flow. There is no evidence of deep vein thrombosis in the femoropopliteal veins. There is no evidence of deep vein thrombosis in the visualized calf veins. IMPRESSION: No evidence of DVT in the femoropopliteal veins. No DVT in the visible portions of the calf veins. <Electronically signed by Darvin Childress > 02/09/21 1425
[2021-02-09 12:36] LABS: SPEC. GRAVITY BODY FLUIDS 1.011 (NOT ESTABLISHED)
[2021-02-09 12:40] LABS: APPEARANCE, BODY FLUID HAZY (CLEAR); ASCITES FL COLOR YELLOW (COLORLESS); SOURCE, BODY FLUID ASCITES
[2021-02-09 12:56] LABS: SOURCE, BODY FLUID ALBUMIN ASCITES; SOURCE, BODY FLUID GLUCOSE ASCITES; SOURCE, BODY FLUID TOT PROTEIN ASCITES
[2021-02-09 13:14] LABS: INR 1.47; PARTIAL THROMBOPLASTIN TIME 36.7 SECONDS (25.9-37.0); PROTHROMBIN TIME 18.3 SECONDS (12.7-14.5)
--- NOTE | 2021-02-09 16:03 | REP ---
INDICATION: Paracentesis / Do not remove more than 6L / Send to lab. COMPARISON: None. TECHNIQUE: The procedure was performed under the direct supervision of Dr. Childress. The risks and benefits of the procedure were explained to the patient and informed consent was obtained. The largest pocket of fluid was localized in the right lower quadrant using ultrasound guidance. The skin was prepped and draped in a sterile fashion. 6 mL of 1% lidocaine was used as a local anesthetic. An 8-Thai multi side-hole catheter was inserted using trocar technique.6150 mL of yellow fluid was withdrawn with a sample sent to the lab for analysis. Estimated blood loss: Less than 1 mL The patient tolerated the procedure well and there were no immediate complications. After the appropriate amount of monitored convalescence, the patient was discharged from the department. FINDINGS: None IMPRESSION: Ultrasound-guided paracentesis [id number] mL of yellow fluid. <Electronically signed by David Peter > 02/09/21 [id number] <Electronically signed by Darvin Childress > 02/09/21 0719
[2021-02-09] MEDS: TAMSULOSIN 0.4 MG CAP PO SCH (20:50)
--- NOTE | 2021-02-09 23:24 | ECHO ---
ECHOCARDIOGRAM DATE OF PROCEDURE: 02/07/2021 Age: 66 Gender: Male Height: 178 cm Weight: 74 kilograms REFERRING PHYSICIAN: Dr. Estefany Hazel INDICATION: Edema 2D MEASUREMENTS: IVS 0.9 cm LV 4.6 cm LVPW 0.8 cm LA 3.5 cm Aorta 3.2 cm Left atrium volume index 20 DOPPLER MEASUREMENT Mitral E wave velocity 47 Mitral A wave 48 E prime septal 7.9 E prime lateral 12.6 FINDINGS: This study is of acceptable technical quality, but for very limited subcostal views. Patient is in sinus rhythm. Left ventricle is normal size and normal systolic function, estimated LVEF 60% to 65%. I do not appreciate any segmental wall motion abnormalities based on somewhat limited views. Right ventricle also appears to have normal size and systolic function. Both atria appear normal. The aortic valve is mildly sclerotic, but otherwise normally mobile. Mitral and tricuspid valves appear normal. Pulmonic valve was not seen. No pericardial effusion is noted. Inferior vena cava was not visualized. Aortic root and aortic arch appear normal. Abdominal aorta was not seen. Doppler interrogation reveals no aortic stenosis or insufficiency, trace mitral and trace tricuspid insufficiency. Calculated pulmonary artery pressure is within normal limits assuming normal central venous pressure. Mitral inflow pattern and tissue Doppler imaging of the mitral annulus most likely revealed normal or mildly abnormal diastolic function. CONCLUSIONS: 1. Study is of acceptable technical quality; underlying sinus rhythm. 2. Normal LV size with preserved LV systolic and probably also diastolic function. 3. No significant valvular disease. 4. Unable to estimate central venous pressure, but probably normal pulmonary artery pressure. 5. No obvious explanation for peripheral edema.
[2021-02-10] VITALS: BP 103/65
[2021-02-10] MEDS: SUCRALFATE SUSP 1GM/10ML UD PO SCH ×5 (00:39→23:03)
[2021-02-10] MEDS: LACTULOSE 20 GM/30 ML SYRUP UD PO SCH ×4 (00:39→17:37)
[2021-02-10] MEDS: PIPERACILLIN/TAZOBACTAM SOD 3.375 GM in D5W MINI-BAG PLUS 50 ML IV SCH ×4 (02:56→21:35)
[2021-02-10 04:00] VITALS: BP 97/61
[2021-02-10 04:13] LABS: BASO % 0.2 % (0.0-1.0); HEMATOCRIT 30.3 % (42.0-52.0); HEMOGLOBIN 10.4 g/dl (13.5-17.5); LYMPH # 0.7 10^3/uL (1.5-5.0); LYMPH % 13.9 % (24.0-44.0); MEAN CORPUSCULAR HGB CONC 34.3 g/dl (32.0-36.5); MEAN CORPUSCULAR VOLUME 90.2 fl (80.0-96.0); MONO # 0.6 10^3/uL (0.0-0.8); MONO % 11.6 % (2.0-8.0); NEUTROPHILS # 3.7 10^3/uL (1.5-8.5); NEUTROPHILS % 73.7 % (36.0-66.0); PLATELET COUNT, AUTOMATED 102 10^3/uL (150-450); RED BLOOD COUNT 3.36 10^6/uL (4.30-6.10)
[2021-02-10 05:16] LABS: ALBUMIN 2.3 GM/DL (3.2-5.2); BILIRUBIN,TOTAL 1.7 MG/DL (0.2-1.0); CALCIUM LEVEL 7.5 MG/DL (8.8-10.2); CREATININE FOR GFR 1.83 MG/DL (0.70-1.30); GLOMERULAR FILTRATION RATE 39.9 (>49); MAGNESIUM LEVEL 2.3 MG/DL (1.8-2.4); POTASSIUM SERUM 4.7 MEQ/L (3.5-5.1); TOTAL PROTEIN 4.4 GM/DL (6.4-8.2)
[2021-02-10] MEDS: PANTOPRAZOLE 40MG VIAL (C9113 PER 1) IV SCH ×2 (05:28→17:37)
[2021-02-10] MEDS: OCTREOTIDE ACETATE 1,200 MCG in NS 238.8 ML IV SCH (05:29)
[2021-02-10] MEDS: SODIUM CHLORIDE 0.9% INJ 10 ML SYR IV SCH ×2 (05:29→17:37)
[2021-02-10 08:00] VITALS: BP 100/63
[2021-02-10] MEDS: MIDODRINE 5 MG TAB PO SCH ×3 (08:27→15:51)
[2021-02-10 12:00] VITALS: BP 103/58
[2021-02-10] MEDS ORDERED: VANCOMYCIN HCL 1,000 MG, VIAL MATE ADAPTER 1 EACH in NS 250 ML IV ONE (13:00)
[2021-02-10] MEDS ORDERED: VANCOMYCIN HCL 750 MG, VIAL MATE ADAPTER 1 EACH in NS 250 ML IV ONE (14:00)
[2021-02-10 16:01] VITALS: BP 142/77
--- NOTE | 2021-02-10 18:36 | IPNPDOC ---
Text Note Date of Service The patient was seen on 02/10/21. NOTE Subjective: -Afebrile, normotensive -Denies any abdominal pain, chest pain, shortness of breath, cough or palpitations. Objective: Vitals: See below General: Sitting up in bed, chronic ally ill appearing, thing, NAD, AAOx3 HEENT: NC, AT CVS: RRR, +S1S2, no noted m/r/g Lungs: CTAB, no evidence of wheezing, rales or rhonchi Abdomen: Soft, Distended, no-tenderness noted, +shifting dullness Extremities: 2+ pitting edema, - Calf tenderness Labs: Reviewed Imaging: CXR 02/07: Stable appearing chronic changes CT Abdomen / Pelvis 02/07: Evidence of cirrhosis and ascites along with other chronic changes as described above. There has been no significant change compared to 12/30/2020. Micro: 02/07 BCx - E. fecium, vanc sensitive 02/07 BCx - E. fecium, vanc sensitive and ESBL klebs 02/08 GPCs in pairs and chains Assessment: 66 yo M with FLOOD cirrhosis, CKD3 and hx of GIB who presented with abdominal pain and fatigue and admitted for severe sepsis, acute on chronic anemia and KAILEE that has improved with antibiotics, blood transfusion and albumin administration. Severe sepsis: resolved, found to have E.fecium bacteremia and possible ESBL klebs as well -Draw new BCx - UA negative - s/p fluids, albumin and pRBCs - was started on midodrine by nephrology - Added vanc to pip/tazo, so vanc day #1, zosyn day #4 - TTE given persistent bacteremia without vanc onboard until 02/10 Nausea / Vomiting / Abdominal discomfort - Potentially 2/2 spontaneous bacterial peritonitis though fluid analysis is not convincing at this time though it was done after starting the antibiotics - Leukocytosis has improved - Imaging noted above - s/p paracentesis/ f/u fluid studies - s/p Albumin and PRBC - c/w Zosyn (Day #4) for intra-abdominal coverage Acute blood loss anemia - Hg has had a significant drop - Patient had an EGD/colonoscopy on 01/19 --- EGD had revealed small AVM that was cauterized --- Colonoscopy had revealed polyps that were 3-5 mm and a large polyp of 2.5 cm - Occult stool positive - c/w Protonix; Started Carafate, will dc octreotide gtt at this time -Had EGD w/ Dr. Ortiz, unrevealing for source of bleeding Acute on chronic anemia, thrombocytopenia and hyperbilirubinemia potentially 2/2 DIC i/s/o sepsis Has acute on chronic anemia, thrombocytopenia, coagulopathy and low fibrinogen with hyperbilirubinemia. I suspect that he had some transient DIC that contributed to the acute on chronic anemia while there was a greater suspicion of overt GIB. -INR improved yesterday. will continue holding anticoagulants, daily fibrinogen for goal >200 or else if decreasing to give fibrinogen. will also check daily CBC, INR, PTT, fibrinogen and haptoglobin CKD3: improving - Cr baseline appears to be ~1.5 - Possibly component of hepatorenal syndrome - Diuretics on hold - Nephrology was called on consultation; appreciate their input Lactic acidosis: resolved - s/p intravascular repletion with IV fluids / albumin / PRBC Cirrhosis 2/2 FLOOD - Hx of Hepatic encephalopathy and recurrent ascites - INR elevated with ongoing coagulopathy, KAILEE, hyperbili with a MELD of 31, with 30% mortality risk in 3m. - c/w Lactulose Pancreatic Carcinoma (s/p Whipple 2016) Chronic hyponatremia - likely 2/2 hypotonic hypovolemic etiology 2/2 ascites - Baseline sodium appears to be in the low 130s - UA noted; FENa of 0.1% - Thyroid function / Cortisol levels unrevealing - Diuretics on hold - Nephrology consulted; appreciate their input Gastrointestinal prophylaxis - c/w Protonix IV DVT prophylaxis - s/p Heparin - c/w TEDs/Sequentials Code Status: - Full code Disposition: - Awaiting clinical improvement VS,Jim, I+O VS, Jim, I+O Laboratory Tests 02/10/21 04:00 Vital Signs Date Time Temp Pulse Resp B/P (MAP) Pulse Ox O2 Delivery O2 Flow Rate FiO2 02/10/21 16:01 97.2 54 20 142/77 (98) 98 Room Air 02/08/21 17:30 2.0 I&O- Last 24 Hours up to 6 AM 02/10/21 06:00 Intake Total 2100.0 ml Output Total 6815 ml Balance -4715.0 ml MED VANG MD Feb 10, 2021 18:36
[2021-02-10 19:45] VITALS: BP 107/64
[2021-02-10] MEDS: TAMSULOSIN 0.4 MG CAP PO SCH (21:35)
[2021-02-10] MEDS: SODIUM CHLORIDE 0.9% INJ 10 ML SYR IV PRN (23:04)
[2021-02-11] VITALS: BP 103/59
[2021-02-11 04:00] VITALS: BP 97/60
[2021-02-11] MEDS: PIPERACILLIN/TAZOBACTAM SOD 3.375 GM in D5W MINI-BAG PLUS 50 ML IV SCH ×4 (04:20→21:22)
[2021-02-11] MEDS: LACTULOSE 20 GM/30 ML SYRUP UD PO SCH ×4 (05:29→18:00)
[2021-02-11] MEDS: SODIUM CHLORIDE 0.9% INJ 10 ML SYR IV SCH ×2 (05:29→18:18)
[2021-02-11] MEDS: PANTOPRAZOLE 40MG VIAL (C9113 PER 1) IV SCH ×2 (05:29→18:17)
[2021-02-11] MEDS: SUCRALFATE SUSP 1GM/10ML UD PO SCH ×3 (05:29→18:17)
[2021-02-11] MEDS: OCTREOTIDE ACETATE 1,200 MCG in NS 238.8 ML IV SCH (05:29)
[2021-02-11 06:01] LABS: HEMATOCRIT 31.7 % (42.0-52.0); HEMOGLOBIN 10.8 g/dl (13.5-17.5); LYMPH # 0.9 10^3/uL (1.5-5.0); LYMPH % 23.4 % (24.0-44.0); MEAN CORPUSCULAR HEMOGLOBIN 30.9 pg (27.0-33.0); MEAN CORPUSCULAR HGB CONC 34.1 g/dl (32.0-36.5); MEAN CORPUSCULAR VOLUME 90.6 fl (80.0-96.0); MONO # 0.5 10^3/uL (0.0-0.8); MONO % 12.6 % (2.0-8.0); NEUTROPHILS # 2.4 10^3/uL (1.5-8.5); NEUTROPHILS % 63.5 % (36.0-66.0); WHITE BLOOD COUNT 3.8 10^3/uL (4.0-10.0)
[2021-02-11 06:34] LABS: BILIRUBIN,TOTAL 1.6 MG/DL (0.2-1.0); CALCIUM LEVEL 7.1 MG/DL (8.8-10.2); CREATININE FOR GFR 1.46 MG/DL (0.70-1.30); GLOMERULAR FILTRATION RATE 51.7 (>49); MAGNESIUM LEVEL 2.2 MG/DL (1.8-2.4); POTASSIUM SERUM 3.9 MEQ/L (3.5-5.1); TOTAL PROTEIN 4.1 GM/DL (6.4-8.2)
[2021-02-11 07:23] LABS: PLATELET COUNT, AUTOMATED 85 10^3/uL (150-450)
[2021-02-11 08:00] VITALS: BP 102/62
[2021-02-11] MEDS: MIDODRINE 5 MG TAB PO SCH ×3 (08:58→15:34)
[2021-02-11] MEDS ORDERED: VANCOMYCIN HCL 1,000 MG, VIAL MATE ADAPTER 1 EACH in NS 250 ML IV SCH (09:00)
[2021-02-11] MEDS: SODIUM CHLORIDE 0.9% INJ 10 ML SYR IV PRN ×2 (09:00→12:15)
--- NOTE | 2021-02-11 10:02 | IPN ---
PROGRESS NOTE DATE: 02/10/2021 SUBJECTIVE: Mr. Glez is seen and examined this morning at the bedside. He has no complaints. He denies any chest pain, abdominal pain or shortness of breath. His leg edema has resolved. His blood cultures have been persistently positive and I discussed with Dr. Cortes regarding broadening his antibiotics. Patient has been afebrile and maintaining mean arterial pressure above 65 with Midodrine. He had a large volume paracentesis done yesterday with 6.1 liters of fluid removed. OBJECTIVE: VITAL SIGNS: Temperature 97.4, pulse 55, respiratory rate 18, blood pressure 103/58, saturating 98% on room air. INTAKE AND OUTPUT: Intake yesterday was 2.2 liters, urine output was 640 ml, paracentesis removed 6 liters. There were also three bowel movements. Weight on the bed scale today is 69 kg. GENERAL: Patient was seen lying in bed, elderly male, appears chronically ill, awake, alert, watching TV in no distress. HEENT: Extraocular muscles are intact. There is notable muscle wasting. Tongue is moist. NECK: Supple. Jugular veins are less elevated today. HEART: Heart sounds are bradycardic, S1 and S2. Peripheral edema in the legs has resolved. GENITOURINARY: Indwelling Rivera catheter. LUNGS: Clear to auscultation bilaterally. No crackle or rale. ABDOMEN: Soft, he no longer has significant ascites present. EXTREMITIES: Along with resolved edema also showed decreased muscle mass. NEUROLOGIC: He is oriented x3, interactive and conversational. LABORATORY DATA: Sodium 129, potassium 4.7, bicarbonate 21, BUN 29, creatinine 1.8. Magnesium 2.3, albumin 2.3, hemoglobin 10.4, platelets 102,000. Microbiology: Blood cultures drawn on February 08 are also positive with gram positive cocci in pairs and chains similar to blood cultures drawn on February 07 would show enterococcus faecium and ESBL Klebsiella. His stool occult blood was positive. Culture of the ascitic fluid is pending. Repeat blood cultures were also sent today, February 10. IMAGING: Paracentesis done yesterday drained 6.1 liters of fluid. Venous Duplex of the bilateral lower extremities was negative for DVT. INPATIENT MEDICATIONS: Reviewed by myself. He continues on IV Zosyn, he was also started now on IV Vancomycin. He is on an Octreotide drip at 10 ml/hr, Lactulose 30 ml p.o. q. 6 hourly, Tylenol p.r.n., Midodrine 5 mg p.o. three times a day, Protonix 40 mg IV b.i.d., Carafate 1 gram p.o. q. 6 hourly, Flomax 0.4 mg p.o. q.h.s. PROBLEMS: 1. Acute nonoliguric kidney injury secondary to sepsis with recent septic shock and also with transient and significant anemia. The patient's current kidney injury is not secondary to hepatorenal syndrome, rather it is primarily secondary to his sepsis. His baseline creatinine is less than 1 but he does have a history of recurrent acute kidney injuries and has easily provoked renal dysfunction because of underlying chronic decompensated cirrhosis. His blood cultures remain persistently positive and I discussed with Dr. Cortes regarding broadening his antibiotics. Blood pressures are still soft and he continues on Midodrine. He did a have a large volume paracentesis yesterday which he tolerated well without any worsening renal function nor with any hemodynamic derangements. He continues on albumin infusions and Octreotide to help with the effective circulating volume. 2. Decompensated cirrhosis with recurrent ascites. Patient has nonalcoholic steatohepatitis and a history of hepatic encephalopathy. He is paracentesis dependent, has had a total of four large volume paracentesis procedures done within the past month and has poor prognostic markers including elevated INR, chronic hyponatremia, recurrent kidney injury and elevated total bilirubin. His MELD-NA score has improved over the past 48 hours from 31 two days ago down to 24 today. He continues on albumin infusion, Midodrine, Octreotide and Lactulose. 3. Severe sepsis with bacteremia. Blood cultures are persistently positive with E. faecium and with ESBL Klebsiella. Repeat blood cultures were drawn today. MAP has been above 65 with the use of Midodrine. Vancomycin was added today in addition to Zosyn. An echocardiogram is pending. If the patient develops worsening hypotension, I would advise pressor initiation. He is afebrile and there is no leukocytosis at this time. His ascitic fluid analysis was done after the patient was already on antibiotics. 4. Acute blood loss anemia, has been transfused a total of 3 units of packed red blood cells on this admission. Stool occult blood was positive. Hemoglobin has been stable at 10 the past two days. He is not presently on any DVT prophylaxis. He did have venous Duplex done earlier which was negative. 5. Hypo-osmolar hyponatremia, chronic and secondary to decompensated cirrhosis with ascites. His volume status has improved. Today, I note that his peripheral edema is markedly better. He did have a large volume paracentesis yesterday. He continues on albumin to help with the oncotic pressure and continues appropriately on a low sodium diet.
[2021-02-11 12:00] VITALS: BP 113/79
--- NOTE | 2021-02-11 12:09 | IPNPDOC ---
Text Note Date of Service The patient was seen on 02/11/21. NOTE Subjective: -Afebrile, normotensive -Denies any abdominal pain, chest pain, shortness of breath, cough or palpitations. Objective: Vitals: See below General: Sitting up in bed, chronic ally ill appearing, thing, NAD, AAOx3 HEENT: NC, AT CVS: RRR, +S1S2, no noted m/r/g Lungs: CTAB, no evidence of wheezing, rales or rhonchi Abdomen: Soft, Distended, no-tenderness noted, +shifting dullness Extremities: 2+ pitting edema, - Calf tenderness Labs: WBC 3.8 Hgb 10.8 platelets 85 na 131 K 3.9 BUN 22 Cr 1.46 Imaging: CXR 02/07: Stable appearing chronic changes CT Abdomen / Pelvis 02/07: Evidence of cirrhosis and ascites along with other chronic changes as described above. There has been no significant change compared to 12/30/2020. Micro: 02/07 BCx - E. fecium, vanc sensitive 02/07 BCx - E. fecium, vanc sensitive and ESBL klebs 02/08 GPCs in pairs and chains Assessment: 66 yo M with FLOOD cirrhosis, CKD3 and hx of GIB who presented with abdominal pain and fatigue and admitted for severe sepsis, acute on chronic anemia and KAILEE that has improved with antibiotics, blood transfusion and albumin administration. Severe sepsis: resolved. Found to have E.fecium bacteremia and possible ESBL klebs as well - 02/10 BCx NGTD, f/u - UA negative - s/p fluids, albumin and pRBCs - was started on midodrine by nephrology - Added vanc to pip/tazo, so vanc day #2, zosyn day #5 - 02/07 TTE was negative for veg, however had persistent E.fecium bacteremia, an no coverage until 02/10, will f/u Cx and discuss need for further LALITA etc if indicated with ID - ID consult Nausea / Vomiting / Abdominal discomfort - Potentially 2/2 spontaneous bacterial peritonitis though fluid analysis is not convincing at this time though it was done after starting the antibiotics - Leukocytosis has resolved - Imaging noted above - s/p paracentesis/ f/u fluid studies - s/p Albumin and PRBC - c/w abx per above Acute blood loss anemia - Hg has had a significant drop - Patient had an EGD/colonoscopy on 01/19 --- EGD had revealed small AVM that was cauterized --- Colonoscopy had revealed polyps that were 3-5 mm and a large polyp of 2.5 cm - Occult stool positive - c/w Protonix; Started Carafate -Had EGD w/ Dr. Ortiz Acute on chronic anemia, thrombocytopenia and hyperbilirubinemia potentially 2/2 low grade DIC i/s/o sepsis, appears to have resolved Has acute on chronic anemia, thrombocytopenia, coagulopathy and low fibrinogen with hyperbilirubinemia. I suspect that he had some transient DIC that contributed to the acute on chronic anemia while there was a greater suspicion of overt GIB. -INR improved. will continue holding anticoagulants, daily fibrinogen for goal >200 or else if decreasing to give fibrinogen. CKD3: improving - Cr baseline appears to be ~1.5 - Possibly component of hepatorenal syndrome - Diuretics on hold - Nephrology was called on consultation; appreciate their input Lactic acidosis: resolved - s/p intravascular repletion with IV fluids / albumin / PRBC Cirrhosis 2/2 FLOOD - Hx of Hepatic encephalopathy and recurrent ascites - INR elevated with ongoing coagulopathy, KAILEE, hyperbili with a MELD of 31, with 30% mortality risk in . - c/w Lactulose Pancreatic Carcinoma (s/p Whipple 2016) Chronic hyponatremia - likely 2/2 hypotonic hypovolemic etiology 2/2 ascites - Baseline sodium appears to be in the low 130s - UA noted; FENa of 0.1% - Thyroid function / Cortisol levels unrevealing - Diuretics on hold - Nephrology consulted; appreciate their input Gastrointestinal prophylaxis - c/w Protonix IV DVT prophylaxis - s/p Heparin - c/w TEDs/Sequentials Code Status: - Full code Disposition: - Awaiting clinical improvement, PT/OT VS,Fishbone, I+O VS, Fishbone, I+O Laboratory Tests 02/11/21 05:38 Vital Signs Date Time Temp Pulse Resp B/P (MAP) Pulse Ox O2 Delivery O2 Flow Rate FiO2 02/11/21 04:00 98.7 64 18 97/60 (72) 97 Room Air 02/08/21 17:30 2.0 I&O- Last 24 Hours up to 6 AM 02/11/21 06:00 Intake Total 1070 ml Output Total 911 ml Balance 159 ml MED VANG MD Feb 11, 2021 08:25
[2021-02-11 16:00] VITALS: BP 103/61
[2021-02-11 20:00] VITALS: BP 116/64
[2021-02-11] MEDS: TAMSULOSIN 0.4 MG CAP PO SCH (21:22)
--- NOTE | 2021-02-11 23:51 | IPN ---
NEPHROLOGY PROGRESS NOTE DATE: 02/11/2021 SUBJECTIVE: Mr. Glez was seen and examined this morning sitting in the chair eating lunch. He offers no complaints. He tells me he wants to keep the Rivera catheter in place. He denies any shortness of breath. He remains afebrile and hemodynamically stable and laboratory studies show improving renal function and likewise the patient has had improving urine output. OBJECTIVE: PHYSICAL EXAMINATION: VITAL SIGNS: Temperature 99.5, pulse 63, respiratory rate 20, blood pressure 103/61, saturating 99% on room air. INTAKE AND OUTPUT: Urine output yesterday 920 mL. Weight in the bed scale today is 69 kg. GENERAL APPEARANCE: The patient is seen sitting up in the chair eating lunch, awake, alert, and in no distress, chronically ill appearing, oriented x3. HEENT: The extraocular muscles are intact. Tongue is moist. NECK: Jugular veins were not elevated while he was sitting upright. HEART: Sounds are regular, S1, S2. There is no peripheral edema. LUNGS: Symmetric air entry. No crackles, rales or rhonchi. ABDOMEN: Soft. There is some ascites. There is no tenderness. GENITOURINARY: Indwelling Rivera catheter. LABORATORY STUDIES: White count 3.8, hemoglobin 10.8, platelet count 85. Sodium 131, potassium 3.9, bicarbonate 22, BUN 22, creatinine 1.4. MICROBIOLOGY: Blood cultures finally have cleared. Cultures drawn on February 10 now show no growth for 24 hours times two sets. Prior blood cultures from February 08 and February 07 were positive. INPATIENT MEDICATIONS: The patient's medications were reviewed by myself. The patient continues on IV Zosyn and IV Vancomycin. He is off of Octreotide. The remainder of medications are unchanged as compared to yesterday. PROBLEMS: 1. Acute non-oliguric kidney injury secondary to recent septic shock with bacteremia his blood cultures have finally cleared after his antibiotics were broadened. His renal function and urine output have both improved but are not back to baseline. His baseline creatinine is less than 1 and the patient does have a history of recurrent and easily provoked acute kidney injuries, likely secondary to underlying chronic decompensated cirrhosis. His blood pressures are acceptable and I would continue him on Midodrine, but he is off of Octreotide at this point. 2. Decompensated cirrhosis with recurrent ascites in this patient with dependent on frequent large volume paracentesis his markers are improving including INR, sodium level and total bilirubin. His MELD-NA score has come down. He is status post albumin and Octreotide. He continues on Midodrine and Lactulose. 3. Severe sepsis (resolved) with bacteremia blood cultures grew E- faecium and ESBL Klebsiella. Blood cultures on February 07 and were positive and now repeat blood cultures from February 10 are negative for 24 hours times two sets. He is currently on Vancomycin and Zosyn and blood pressures are acceptable on Midodrine. 4. Acute blood loss anemia - The patient has received a total of 3 units of packed red blood cells on this admission, and hemoglobin is now stable in the 10's. Stool occult blood was positive. He continues on Carafate and Protonix. 5. Hypervolemic hyponatremia it is chronic and secondary to decompensated cirrhosis. His volume status is improved. His peripheral edema is markedly better. He should continue with the low sodium diet. His home diuretic regimen of Lasix and Spironolactone is still on hold in view of recent sepsis and acute kidney injury that has not fully recovered as of yet.
[2021-02-12] VITALS: BP 110/64
[2021-02-12] MEDS: LACTULOSE 20 GM/30 ML SYRUP UD PO SCH ×4 (00:43→17:09)
[2021-02-12] MEDS: SUCRALFATE SUSP 1GM/10ML UD PO SCH ×4 (00:43→17:09)
[2021-02-12 04:00] VITALS: BP 95/59
[2021-02-12] MEDS: PIPERACILLIN/TAZOBACTAM SOD 3.375 GM in D5W MINI-BAG PLUS 50 ML IV SCH ×4 (04:04→20:30)
[2021-02-12] MEDS: PANTOPRAZOLE 40MG VIAL (C9113 PER 1) IV SCH ×2 (05:53→17:09)
[2021-02-12] MEDS: SODIUM CHLORIDE 0.9% INJ 10 ML SYR IV SCH ×2 (05:54→17:10)
[2021-02-12 06:18] LABS: BASO % 0.2 % (0.0-1.0); HEMATOCRIT 32.8 % (42.0-52.0); HEMOGLOBIN 11.1 g/dl (13.5-17.5); LYMPH # 1.1 10^3/uL (1.5-5.0); LYMPH % 25.7 % (24.0-44.0); MEAN CORPUSCULAR HEMOGLOBIN 30.9 pg (27.0-33.0); MEAN CORPUSCULAR HGB CONC 33.8 g/dl (32.0-36.5); MEAN CORPUSCULAR VOLUME 91.4 fl (80.0-96.0); MONO # 0.6 10^3/uL (0.0-0.8); MONO % 14.6 % (2.0-8.0); NEUTROPHILS # 2.5 10^3/uL (1.5-8.5); NEUTROPHILS % 58.8 % (36.0-66.0); RED BLOOD COUNT 3.59 10^6/uL (4.30-6.10); WHITE BLOOD COUNT 4.2 10^3/uL (4.0-10.0)
[2021-02-12 06:19] LABS: PLATELET COUNT, AUTOMATED 84 10^3/uL (150-450)
[2021-02-12 06:34] LABS: ERYTHROCYTE SEDIMENTATION RATE 1 mm/hr (0-20)
[2021-02-12 06:38] LABS: ALBUMIN 1.9 GM/DL (3.2-5.2); ALT/SGPT 27 U/L (12-78); BILIRUBIN,TOTAL 1.7 MG/DL (0.2-1.0); BLOOD UREA NITROGEN 15 MG/DL (7-18); C REACTIVE PROTEIN QUANTITATIV 0.93 MG/DL (0.00-0.30); CARBON DIOXIDE LEVEL 23 MEQ/L (21-32); CHLORIDE LEVEL 103 MEQ/L (98-107); CREATININE FOR GFR 1.25 MG/DL (0.70-1.30); GLOMERULAR FILTRATION RATE > 60.0 (>49); GLUCOSE, FASTING 115 MG/DL (70-100); MAGNESIUM LEVEL 1.8 MG/DL (1.8-2.4); POTASSIUM SERUM 4.2 MEQ/L (3.5-5.1); SODIUM LEVEL 133 MEQ/L (136-145); TOTAL PROTEIN 3.9 GM/DL (6.4-8.2)
[2021-02-12 08:00] VITALS: BP 99/64
[2021-02-12] MEDS: MIDODRINE 5 MG TAB PO SCH ×3 (08:31→17:10)
[2021-02-12] MEDS: VANCOMYCIN HCL 1,000 MG, VIAL MATE ADAPTER 1 EACH in NS 250 ML IV SCH ×2 (10:25→22:11)
--- NOTE | 2021-02-12 12:06 | IPNPDOC ---
Text Note Date of Service The patient was seen on 02/12/21. NOTE Subjective: -Afebrile, normotensive -Denies any abdominal pain, chest pain, shortness of breath, cough or palpitations. Objective: Vitals: See below General: Sitting up in bed, chronic ally ill appearing, thing, NAD, AAOx3 HEENT: NC, AT CVS: RRR, +S1S2, no noted m/r/g Lungs: CTAB, no evidence of wheezing, rales or rhonchi Abdomen: Soft, Distended, no-tenderness noted Extremities: Has bilateral lower extremity pitting edema, - Calf tenderness, WWP Labs: Reviewed WBC 4.2 Hgb 11.1 platelets 84 na 133 K 4.2 Cr 1.25 Imaging: CXR 02/07: Stable appearing chronic changes CT Abdomen / Pelvis 02/07: Evidence of cirrhosis and ascites along with other chronic changes as described above. There has been no significant change compared to 12/30/2020. Micro: 02/07 BCx - E. fecium, vanc sensitive 02/07 BCx - E. fecium, vanc sensitive and ESBL klebs 02/08 GPCs in pairs and chains Assessment: 66 yo M with FLOOD cirrhosis, CKD3 and hx of GIB who presented with abdominal pain and fatigue and admitted for severe sepsis, acute on chronic anemia and KAILEE that has improved with antibiotics, blood transfusion and albumin administration. Severe sepsis: resolved. Found to have E.fecium bacteremia and possible ESBL klebs as well - 02/10 BCx NGTD, f/u - UA negative - s/p fluids, albumin and pRBCs - was started on midodrine by nephrology - Cont vanc to pip/tazo, so vanc day #3, zosyn day #6 - 02/07 TTE was negative for veg, however had persistent E.fecium bacteremia, an no coverage until 02/10, BCx now negative - ID consulted Nausea / Vomiting / Abdominal discomfort - Potentially 2/2 spontaneous bacterial peritonitis though fluid analysis is not convincing at this time though it was done after starting the antibiotics - Leukocytosis has resolved - Imaging noted above - s/p paracentesis/ f/u fluid studies - s/p Albumin and PRBC - c/w abx per above Acute blood loss anemia - Hg has had a significant drop - Patient had an EGD/colonoscopy on 9/7 --- EGD had revealed small AVM that was cauterized --- Colonoscopy had revealed polyps that were 3-5 mm and a large polyp of 2.5 cm - Occult stool positive - c/w Protonix; Started Carafate -Had EGD w/ Dr. Ortiz Acute on chronic anemia, thrombocytopenia and hyperbilirubinemia potentially 2/2 low grade DIC i/s/o sepsis, appears to have resolved Has acute on chronic anemia, thrombocytopenia, coagulopathy and low fibrinogen with hyperbilirubinemia. I suspect that he had some transient DIC that contributed to the acute on chronic anemia while there was a greater suspicion of overt GIB. -INR improved. -continue holding anticoagulants KAILEE on CKD3: resolved - Cr baseline appears to be ~1.5 - Possibly component of hepatorenal syndrome - Diuretics on hold i/s/o severe sepsis - Nephrology was called on consultation; appreciate their input Lactic acidosis: resolved - s/p intravascular repletion with IV fluids / albumin / PRBC Cirrhosis 2/2 FLOOD - Hx of Hepatic encephalopathy and recurrent ascites - INR elevated with ongoing coagulopathy, KAILEE, hyperbili with a MELD of 31, with 30% mortality risk in . - c/w Lactulose Pancreatic Carcinoma (s/p Whipple 2017) Chronic hyponatremia - likely 2/2 hypotonic hypovolemic, now improved - Baseline sodium appears to be in the low 130s - UA noted; FENa of 0.1% - Thyroid function / Cortisol levels unrevealing - Diuretics on hold - Nephrology consulted; appreciate their input Gastrointestinal prophylaxis - c/w Protonix DVT prophylaxis - s/p Heparin - c/w TEDs/Sequentials Code Status: - Full code Disposition: - Awaiting ID recs, PT/OT VS,Fishbone, I+O VS, Fishbone, I+O Laboratory Tests 02/12/21 06:01 Vital Signs Date Time Temp Pulse Resp B/P (MAP) Pulse Ox O2 Delivery O2 Flow Rate FiO2 02/12/21 08:00 98.5 99 20 99/64 (76) 97 Room Air 02/08/21 17:30 2.0 I&O- Last 24 Hours up to 6 AM 02/12/21 06:00 Intake Total 1540 ml Output Total 900 ml Balance 640 ml MED VANG MD Feb 12, 2021 12:06
[2021-02-12 17:05] VITALS: BP 105/68
--- NOTE | 2021-02-12 19:20 | IPN ---
NEPHROLOGY PROGRESS NOTE DATE: 02/12/2021 SUBJECTIVE: Mr. Glez was seen and examined this morning at the bedside. Denies any complaints, is eager to be discharged home. Laboratory studies show improving renal function. I advised the patient that he will need to continue on intravenous (IV) antibiotics for the time being and I note that infectious disease's recommendations are pending for duration of therapy of his recent bacteremia. He remains afebrile and hemodynamically stable. PHYSICAL EXAMINATION: VITAL SIGNS: Temperature 98.4, pulse 75, respiratory rate 18, blood pressure 95/59, saturating 95-97% on room air. INTAKE AND OUTPUT: Intake yesterday was 1.4 liters. Urine output yesterday was 900. Weight in the bed scale today is 71.4 kg. GENERAL: Patient is seen sitting in the bed, appears older than stated age and chronically ill and frail. HEENT: Extraocular muscles are intact. Tongue is moist. Neck is supple. Jugular veins are elevated. HEART SOUNDS: Regular. S1, S2. There is 1+ ankle edema. LUNGS: Show symmetric air movement. No crackle or rale. ABDOMEN: Soft. There is ascites. GENITOURINARY: Shows indwelling Rivera catheter. EXTREMITIES: Bilateral pitting edema 1+ that comes up to the lower apple. LABORATORY STUDIES: White count 4.2, hemoglobin 11.1, platelets 84. Sodium 133, potassium 4.2, bicarbonate 23, BUN 15, creatinine 1.2. Blood cultures from February 10, 2021 now show no growth for two sets for 48 hours. Prior blood cultures on February 08, 2021 and February 07, 2021 were positive for Enterococcus faecium and Klebsiella pneumoniae. INPATIENT MEDICATIONS: Reviewed by myself. The patient's chronic home diuretics remain on hold. He continues on intravenous (IV) Zosyn and vancomycin along with lactulose, midodrine, Protonix, Carafate and Flomax. PROBLEMS: 1. Acute kidney injury (KAILEE) (nonoliguric). Secondary to recent septic shock with bacteremia. Patient's renal function is almost back to baseline (baseline creatinine is less than 1). Patient does have a history of recurrent and easily provoked acute kidney injury secondary to underlying chronic decompensated cirrhosis. Blood pressures are acceptable and I would continue him on midodrine, as systolic is 90s to 100. 2. Decompensated cirrhosis with recurrent ascites in this patient who is dependent on frequent, large volume paracentesis. His markers are improving, including INR, sodium level and total bilirubin. He is status post albumin and octreotide. He continues on midodrine and lactulose. 3. Severe sepsis (resolved) with bacteremia. Blood cultures grew Enterococcus faecium and extended spectrum beta-lactamase (ESBL) Klebsiella and were positive on February 07 and 2020. Repeat blood cultures from February 10, 2021 are negative for two sets. Patient is on vancomycin and Zosyn and blood pressures are acceptable on midodrine and infectious disease's recommendation for duration of therapy is pending. 4. Acute blood loss anemia. Patient has received three units of packed red blood cells on this admission and hemoglobin is now stable in the 10s. He continues on Carafate and Protonix, as his stool occult blood was positive. 5. Hypervolemic hyponatremia. It is a chronic thing and it is secondary to the patient's decompensated cirrhosis. At home he takes both Lasix and spironolactone. His diuretics are presently held because of recent sepsis with acute kidney injury, but can likely be resumed over the weekend.
[2021-02-12 20:00] VITALS: BP 114/55
[2021-02-12] MEDS: TAMSULOSIN 0.4 MG CAP PO SCH (20:30)
[2021-02-13] VITALS: BP 96/55
[2021-02-13] MEDS: LACTULOSE 20 GM/30 ML SYRUP UD PO SCH ×4 (00:36→17:58)
[2021-02-13] MEDS: SUCRALFATE SUSP 1GM/10ML UD PO SCH ×4 (00:36→17:58)
[2021-02-13] MEDS: PIPERACILLIN/TAZOBACTAM SOD 3.375 GM in D5W MINI-BAG PLUS 50 ML IV SCH ×4 (03:00→22:09)
[2021-02-13 04:00] VITALS: BP 89/53
[2021-02-13 04:21] LABS: BASO % 0.5 % (0.0-1.0); HEMATOCRIT 34.3 % (42.0-52.0); HEMOGLOBIN 11.5 g/dl (13.5-17.5); LYMPH # 1.2 10^3/uL (1.5-5.0); LYMPH % 18.5 % (24.0-44.0); MEAN CORPUSCULAR HEMOGLOBIN 30.7 pg (27.0-33.0); MEAN CORPUSCULAR HGB CONC 33.5 g/dl (32.0-36.5); MEAN CORPUSCULAR VOLUME 91.5 fl (80.0-96.0); MONO # 0.9 10^3/uL (0.0-0.8); NEUTROPHILS # 4.2 10^3/uL (1.5-8.5); RED BLOOD COUNT 3.75 10^6/uL (4.30-6.10); WHITE BLOOD COUNT 6.3 10^3/uL (4.0-10.0)
[2021-02-13 04:22] LABS: PLATELET COUNT, AUTOMATED 92 10^3/uL (150-450)
[2021-02-13 04:58] LABS: ALBUMIN 1.9 GM/DL (3.2-5.2); ALT/SGPT 29 U/L (12-78); BILIRUBIN,TOTAL 1.6 MG/DL (0.2-1.0); BLOOD UREA NITROGEN 12 MG/DL (7-18); CALCIUM LEVEL 7.3 MG/DL (8.8-10.2); CARBON DIOXIDE LEVEL 22 MEQ/L (21-32); CHLORIDE LEVEL 102 MEQ/L (98-107); CREATININE FOR GFR 1.24 MG/DL (0.70-1.30); GLOMERULAR FILTRATION RATE > 60.0 (>49); GLUCOSE, FASTING 142 MG/DL (70-100); MAGNESIUM LEVEL 1.8 MG/DL (1.8-2.4); POTASSIUM SERUM 3.8 MEQ/L (3.5-5.1); SODIUM LEVEL 133 MEQ/L (136-145); TOTAL PROTEIN 4.1 GM/DL (6.4-8.2)
[2021-02-13] MEDS: SODIUM CHLORIDE 0.9% INJ 10 ML SYR IV SCH ×2 (05:52→17:58)
[2021-02-13] MEDS: PANTOPRAZOLE 40MG VIAL (C9113 PER 1) IV SCH ×2 (05:52→17:59)
[2021-02-13 06:42] VITALS: BP 94/61
[2021-02-13 07:49] VITALS: BP 95/61
[2021-02-13] MEDS: MIDODRINE 5 MG TAB PO SCH ×3 (08:14→17:58)
[2021-02-13] MEDS: VANCOMYCIN HCL 1,000 MG, VIAL MATE ADAPTER 1 EACH in NS 250 ML IV SCH (09:21)
[2021-02-13 12:03] VITALS: BP 100/63
--- NOTE | 2021-02-13 14:46 | IPNPDOC ---
Text Note Date of Service The patient was seen on 02/13/21. NOTE Subjective: -Afebrile, normotensive, doing well -Denies any abdominal pain, chest pain, shortness of breath, cough or palpitations. Objective: Vitals: See below General: Sitting up in the chair, chronic ally ill appearing, NAD, AAOx3 HEENT: NC, AT CVS: RRR, +S1S2, no noted m/r/g Lungs: CTAB, no evidence of wheezing, rales or rhonchi Abdomen: Soft, Distended, no-tenderness noted Extremities: Has bilateral lower extremity pitting edema, no calf tenderness, WWP Labs: Reviewed, stable Imaging: CXR 02/07: Stable appearing chronic changes CT Abdomen / Pelvis 02/07: Evidence of cirrhosis and ascites along with other chronic changes as described above. There has been no significant change compared to 12/30/2020. Micro: 02/07 BCx - E. fecium, vanc sensitive 02/07 BCx - E. fecium, vanc sensitive and ESBL klebs 02/08 GPCs in pairs and chains Assessment: 66 yo M with FLOOD cirrhosis, CKD3 and hx of GIB who presented with abdominal pain and fatigue and admitted for severe sepsis, acute on chronic anemia and KAILEE that has improved with antibiotics, blood transfusion and albumin administration. Severe sepsis: resolved. Found to have E.fecium bacteremia and possible ESBL klebs as well - 02/10 BCx NGTD, f/u - UA negative - s/p fluids, albumin and pRBCs - was started on midodrine by nephrology - DC vanc and pip/tazo, has received zosyn for 7days. Will switch IV vanc over to PO linezolid to complete course of E.fecium bacteremia - 02/07 TTE was negative for veg, however had persistent E.fecium bacteremia, an no coverage until 02/10, BCx now negative - ID consulted 02/11 Nausea / Vomiting / Abdominal discomfort - Potentially 2/2 spontaneous bacterial peritonitis though fluid analysis is not convincing at this time though it was done after starting the antibiotics - Leukocytosis has resolved - Imaging noted above - s/p paracentesis/ f/u fluid studies - s/p Albumin and PRBC - c/w abx per above Acute blood loss anemia - Hg has had a significant drop - Patient had an EGD/colonoscopy on 01/19 --- EGD had revealed small AVM that was cauterized --- Colonoscopy had revealed polyps that were 3-5 mm and a large polyp of 2.5 cm - Occult stool positive - c/w Protonix; Started Carafate -Had EGD w/ Dr. Ortiz Acute on chronic anemia, thrombocytopenia and hyperbilirubinemia potentially 2/2 low grade DIC i/s/o sepsis, appears to have resolved Has acute on chronic anemia, thrombocytopenia, coagulopathy and low fibrinogen with hyperbilirubinemia. I suspect that he had some transient DIC that contributed to the acute on chronic anemia while there was a greater suspicion of overt GIB. -INR improved. -continue holding anticoagulants KAILEE on CKD3: resolved - Cr baseline appears to be ~1.5 - Possibly component of hepatorenal syndrome - Diuretics on hold i/s/o severe sepsis - Nephrology was called on consultation; appreciate their input Lactic acidosis: resolved - s/p intravascular repletion with IV fluids / albumin / PRBC Cirrhosis 2/2 FLOOD - Hx of Hepatic encephalopathy and recurrent ascites - INR elevated with ongoing coagulopathy, KAILEE, hyperbili with a MELD of 31, with 30% mortality risk in . - c/w Lactulose Pancreatic Carcinoma (s/p Whipple 2016) Chronic hyponatremia - likely 2/2 hypotonic hypovolemic, now improved - Baseline sodium appears to be in the low 130s - UA noted; FENa of 0.1% - Thyroid function / Cortisol levels unrevealing - Diuretics on hold - Nephrology consulted; appreciate their input Gastrointestinal prophylaxis - c/w Protonix DVT prophylaxis - s/p Heparin - c/w TEDs/Sequentials Code Status: - Full code Disposition: - Awaiting PT/OT final recs VS,Jim, I+O VS, Jim, I+O Laboratory Tests 02/13/21 04:12 Vital Signs Date Time Temp Pulse Resp B/P (MAP) Pulse Ox O2 Delivery O2 Flow Rate FiO2 02/13/21 07:49 97.9 95 17 95/61 (72) 96 Room Air 02/08/21 17:30 2.0 I&O- Last 24 Hours up to 6 AM 02/13/21 06:00 Intake Total 1750 ml Output Total 650 ml Balance 1100 ml MED VANG MD Feb 13, 2021 11:20
--- NOTE | 2021-02-13 14:47 | IPN ---
NEPHROLOGY PROGRESS NOTE DATE: 02/13/2021 SUBJECTIVE: Mr. Glez is seen this morning at his bedside. He is feeling about the same and denies any new complaints. He has ascites and he is anticipating another paracentesis on Monday. He denies any nausea or vomiting. There is no fever, chills, dyspnea or chest pain. He looks quite emaciated and chronically ill but not in any acute distress. OBJECTIVE: PHYSICAL EXAMINATION: VITAL SIGNS: Temperature 97.9 degrees Fahrenheit, heart rate 90 per minute, respiratory rate 18 per minute, blood pressure is 95/60 mm of mercury and oxygen saturation is 96% on room air. HEENT: Head is atraumatic. He has significant muscle wasting and looks chronically ill. NECK: Neck veins are not abnormally distended. HEART: Regular. LUNGS: Diminished breath sounds at the bases and bibasilar cracks. ABDOMEN: Distended with ascites and bowel sounds are present. EXTREMITIES: Without any cyanosis or clubbing. He has edema on the lower extremities. There is significant muscle wasting on all four limbs. NEUROLOGICAL: He is at his baseline mentation. LABORATORY STUDIES: Today's labs show a sodium level of 133, potassium 3.8, BUN 12 and creatinine 1.24, glucose 142 and calcium 7.3. Total protein is 4.1 and albumin is 1.9. Hemoglobin is 11.5 and hematocrit 34.3. PROBLEMS: 1. Acute kidney injury superimposed on chronic kidney disease - kidney function has improved and stabilized. Most likely his acute kidney injury was related to hepatorenal problem. He is scheduled for another paracentesis on Monday and we will have to treat him with IV albumin during and after paracentesis to prevent acute kidney injury. 2. Hyponatremia - sodium level has gradually improved. No intervention is needed at this point. 3. Cirrhosis of the liver with recurrent ascites - The patient has accumulated ascites once again and he is likely to require a paracentesis again next week. 4. Anemia - at present his anemia is stable and he does not need any urgent intervention.
[2021-02-13 20:00] VITALS: BP 103/55
[2021-02-13] MEDS ORDERED: LINEZOLID 600MG TABLET (ZYVOX) PO SCH (21:00)
[2021-02-13] MEDS: TAMSULOSIN 0.4 MG CAP PO SCH (22:01)
[2021-02-14] MEDS: SUCRALFATE SUSP 1GM/10ML UD PO SCH ×4 (00:01→17:02)
[2021-02-14] MEDS: VANCOMYCIN HCL 1,000 MG, VIAL MATE ADAPTER 1 EACH in NS 250 ML IV SCH (00:01)
[2021-02-14] MEDS: LACTULOSE 20 GM/30 ML SYRUP UD PO SCH ×5 (00:01→17:04)
[2021-02-14] MEDS: PIPERACILLIN/TAZOBACTAM SOD 3.375 GM in D5W MINI-BAG PLUS 50 ML IV SCH ×4 (03:44→21:26)
[2021-02-14 04:00] VITALS: BP 112/53
[2021-02-14 04:13] LABS: BASO % 0.3 % (0.0-1.0); HEMATOCRIT 34.5 % (42.0-52.0); HEMOGLOBIN 11.7 g/dl (13.5-17.5); LYMPH # 1.6 10^3/uL (1.5-5.0); LYMPH % 18.1 % (24.0-44.0); MEAN CORPUSCULAR HGB CONC 33.9 g/dl (32.0-36.5); MEAN CORPUSCULAR VOLUME 91.5 fl (80.0-96.0); MONO # 0.9 10^3/uL (0.0-0.8); MONO % 10.3 % (2.0-8.0); NEUTROPHILS # 6.2 10^3/uL (1.5-8.5); NEUTROPHILS % 70.5 % (36.0-66.0); PLATELET COUNT, AUTOMATED 105 10^3/uL (150-450); RED BLOOD COUNT 3.77 10^6/uL (4.30-6.10); WHITE BLOOD COUNT 8.8 10^3/uL (4.0-10.0)
[2021-02-14 04:38] LABS: ALBUMIN 1.8 GM/DL (3.2-5.2); BILIRUBIN,TOTAL 1.8 MG/DL (0.2-1.0); CALCIUM LEVEL 7.3 MG/DL (8.8-10.2); CREATININE FOR GFR 1.37 MG/DL (0.70-1.30); GLOMERULAR FILTRATION RATE 55.7 (>49); MAGNESIUM LEVEL 1.6 MG/DL (1.8-2.4); POTASSIUM SERUM 4.1 MEQ/L (3.5-5.1); TOTAL PROTEIN 4.2 GM/DL (6.4-8.2)
[2021-02-14] MEDS: SODIUM CHLORIDE 0.9% INJ 10 ML SYR IV SCH ×2 (06:22→17:02)
[2021-02-14] MEDS: PANTOPRAZOLE 40MG VIAL (C9113 PER 1) IV SCH ×2 (06:22→17:02)
[2021-02-14 07:27] VITALS: BP 98/60
[2021-02-14] MEDS: MIDODRINE 5 MG TAB PO SCH ×3 (09:27→15:07)
[2021-02-14] MEDS ORDERED: MAG SULF 1GM/100ML (MAG RUN) 1 GM in IV 1 EA IV ONE (10:00)
[2021-02-14] MEDS ORDERED: VANCOMYCIN HCL 750 MG, VIAL MATE ADAPTER 1 EACH in NS 250 ML IV SCH (10:00)
[2021-02-14 12:00] VITALS: BP 109/71
--- NOTE | 2021-02-14 13:31 | IPNPDOC ---
Text Note Date of Service The patient was seen on 02/14/21. NOTE Subjective: -Afebrile, normotensive -Denies any abdominal pain, chest pain, shortness of breath, cough or palpitations. Objective: Vitals: See below General: Sitting up in bedm chronic ally ill appearing, NAD, AAOx3 HEENT: NC, AT CVS: RRR, +S1S2, no noted m/r/g Lungs: CTAB, no evidence of wheezing, rales or rhonchi Abdomen: Soft, distended, no-tenderness noted Extremities: Has bilateral lower extremity pitting edema, no calf tenderness, WWP Labs: Reviewed WBC 8.8 hgb 11.7 platelets 105 na 134 K 4.1 Cr 1.37 Imaging: CXR 02/07: Stable appearing chronic changes CT Abdomen / Pelvis 02/07: Evidence of cirrhosis and ascites along with other chronic changes as described above. There has been no significant change compared to 12/30/2020. Micro: 02/07 BCx - E. fecium, vanc sensitive 02/07 BCx - E. fecium, vanc sensitive and ESBL klebs 02/08 GPCs in pairs and chains Assessment: 66 yo M with FLOOD cirrhosis, CKD3 and hx of GIB who presented with abdominal pain and fatigue and admitted for severe sepsis, acute on chronic anemia and hepatorenal KAILEE that has improved with antibiotics, blood transfusion and albumin administration. Severe sepsis: resolved. Found to have E.fecium bacteremia and possible ESBL klebs as well - 02/10 BCx NGTD, f/u - UA negative - s/p fluids, albumin and pRBCs - was started on midodrine by nephrology - Continue vanc. Received zosyn for 7days. - 02/07 TTE was negative for veg, however had persistent E.fecium bacteremia, an no coverage until 02/10, BCx now negative - ID consulted 02/11, pending recs, for now told pharmacy to continue vanc and not switch to PO linezolid Nausea / Vomiting / Abdominal discomfort - Potentially 2/2 spontaneous bacterial peritonitis though fluid analysis is not convincing at this time though it was done after starting the antibiotics - Leukocytosis has resolved - Imaging noted above - s/p paracentesis/ f/u fluid studies. Pending paracentesis on 02/15 with pre and post albumin - s/p Albumin and PRBC - c/w abx per above Acute blood loss anemia - Hg has had a significant drop - Patient had an EGD/colonoscopy on 01/19 --- EGD had revealed small AVM that was cauterized --- Colonoscopy had revealed polyps that were 3-5 mm and a large polyp of 2.5 cm - Occult stool positive - c/w Protonix; Started Carafate -Had EGD w/ Dr. Ortiz Acute on chronic anemia, thrombocytopenia and hyperbilirubinemia potentially 2/2 low grade DIC i/s/o sepsis, appears to have resolved Has acute on chronic anemia, thrombocytopenia, coagulopathy and low fibrinogen with hyperbilirubinemia. I suspect that he had some transient DIC that contributed to the acute on chronic anemia while there was a greater suspicion of overt GIB. -INR improved. -continue holding anticoagulants KAILEE on CKD3: resolved. Likely hepatorenal - Cr baseline appears to be ~1.5 - Diuretics were on hold i/s/o severe sepsis - Nephrology was called on consultation; appreciate their input Lactic acidosis: resolved - s/p intravascular repletion with IV fluids / albumin / PRBC Cirrhosis 2/2 FLOOD - Hx of Hepatic encephalopathy and recurrent ascites - INR elevated with ongoing coagulopathy, KAILEE, hyperbili with a MELD of 31, with 30% mortality risk in 3m. - c/w Lactulose Pancreatic Carcinoma (s/p Whipple 2016) Chronic hyponatremia - likely 2/2 hypotonic hypovolemic, now improved - Baseline sodium appears to be in the low 130s - UA noted; FENa of 0.1% - Thyroid function / Cortisol levels unrevealing - Diuretics on hold - Nephrology consulted; appreciate their input Gastrointestinal prophylaxis - c/w Protonix DVT prophylaxis - s/p Heparin - c/w TEDs/Sequentials Code Status: - Full code Disposition: - Awaiting PT/OT final recs VS,Fishbone, I+O VS, Georgibone, I+O Laboratory Tests 02/14/21 04:00 Vital Signs Date Time Temp Pulse Resp B/P (MAP) Pulse Ox O2 Delivery O2 Flow Rate FiO2 02/14/21 07:27 98.3 100 18 98/60 (73) 96 Room Air 02/08/21 17:30 2.0 I&O- Last 24 Hours up to 6 AM 02/14/21 06:00 Intake Total 1050 ml Output Total 675 ml Balance 375 ml MED VANG MD Feb 14, 2021 09:20
[2021-02-14 20:00] VITALS: BP 119/66
--- NOTE | 2021-02-14 21:00 | IPN ---
NEPHROLOGY PROGRESS NOTE DATE: 02/14/2021 SUBJECTIVE: Mr. Glez is seen this morning at this bedside. He is feeling about the same and denies any new complaints. He has no fever, chills, nausea, or vomiting. He remains on intravenous antibiotics for enterococcus faecium positive blood culture. The patient is scheduled for another paracentesis tomorrow. He has a known history of alcoholic cirrhosis with recurrent ascites. OBJECTIVE: PHYSICAL EXAMINATION: VITAL SIGNS: Temperature 98.3 degrees Fahrenheit, heart rate 100 per minute and respiratory rate 18 per minute, blood pressure 98/60 mm of mercury and oxygen saturation 96% on room air. HEENT: His head is atraumatic. Significant muscle wasting is noted. There is no oral thrush or ulcers. NECK: Supple and JVD not abnormally elevated. HEART: Sounds are regular. LUNGS: Diminished breath sounds at the bases. ABDOMEN: Distended with a large amount of ascites. Bowel sounds are present. EXTREMITIES: Without any cyanosis or clubbing. Lower extremity edema is present. NEUROLOGICAL: He is at his baseline mentation. LABORATORY STUDIES: Today's labs show sodium 134, potassium 4.1, CO2 20, BUN 11 and creatinine 1.37. Calcium is 7.3 and magnesium 1.6. Total protein 4.2 and albumin 1.8. Hemoglobin 11.7 and hematocrit 34.5. PROBLEMS: 1. Hyponatremia - sodium level seems to be stable and improved. He did have sudden worsening of hyponatremia after his previous paracentesis and we will need to monitor him, as he is going to have paracentesis again tomorrow. 2. Acute kidney injury superimposed on chronic kidney disease - The patient also had acute kidney injury following his paracentesis and remains at increased risk for recurrent acute kidney injury with paracentesis. He should be given intravenous albumin and kidney function monitored afterwards. His serum albumin is only 1.8 which puts him at increased risk for intravascular volume depletion. 3. Cirrhosis of the liver with recurrent ascites - significant problem and the patient has been requiring repeat paracentesis. He is going to have another paracentesis tomorrow. 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 4. Anemia so far anemia has been stable without any active bleeding. No intervention is need.
[2021-02-14] MEDS: TAMSULOSIN 0.4 MG CAP PO SCH (21:26)
[2021-02-15] VITALS (11 sets, daily range): BP systolic 95–114; BP diastolic 56–72
[2021-02-15] MEDS: LACTULOSE 20 GM/30 ML SYRUP UD PO SCH ×4 (00:56→18:20)
[2021-02-15] MEDS: SUCRALFATE SUSP 1GM/10ML UD PO SCH ×4 (00:57→18:20)
[2021-02-15] MEDS: PIPERACILLIN/TAZOBACTAM SOD 3.375 GM in D5W MINI-BAG PLUS 50 ML IV SCH ×4 (02:24→21:01)
[2021-02-15] MEDS: PANTOPRAZOLE 40MG VIAL (C9113 PER 1) IV SCH ×2 (05:29→18:00)
[2021-02-15] MEDS: VANCOMYCIN HCL 750 MG, VIAL MATE ADAPTER 1 EACH in NS 250 ML IV SCH ×2 (05:32→18:25)
[2021-02-15] MEDS: SODIUM CHLORIDE 0.9% INJ 10 ML SYR IV SCH ×2 (05:33→18:00)
[2021-02-15] MEDS: MIDODRINE 5 MG TAB PO SCH ×3 (08:12→16:37)
[2021-02-15 08:41] LABS: HEMATOCRIT 35.1 % (42.0-52.0); HEMOGLOBIN 11.8 g/dl (13.5-17.5); MEAN CORPUSCULAR HEMOGLOBIN 30.7 pg (27.0-33.0); MEAN CORPUSCULAR HGB CONC 33.6 g/dl (32.0-36.5); MEAN CORPUSCULAR VOLUME 91.4 fl (80.0-96.0); PLATELET COUNT, AUTOMATED 117 10^3/uL (150-450); RED BLOOD COUNT 3.84 10^6/uL (4.30-6.10); WHITE BLOOD COUNT 8.5 10^3/uL (4.0-10.0)
[2021-02-15 09:10] LABS: CALCIUM LEVEL 7.8 MG/DL (8.8-10.2); CREATININE FOR GFR 1.33 MG/DL (0.70-1.30); GLOMERULAR FILTRATION RATE 57.6 (>49); MAGNESIUM LEVEL 1.8 MG/DL (1.8-2.4); POTASSIUM SERUM 3.9 MEQ/L (3.5-5.1)
[2021-02-15] MEDS ORDERED: MAG SULF 1GM/100ML (MAG RUN) 1 GM in IV 1 EA IV ONE (09:45)
[2021-02-15] MEDS ORDERED: SODIUM BICARBONATE 8.4% INJ 50MEQ 50 ML VIAL As Ordered ONE (12:14)
--- NOTE | 2021-02-15 14:44 | IPNPDOC ---
Text Note Date of Service The patient was seen on 02/15/21. NOTE Subjective: -Afebrile, normotensive -Denies any abdominal pain, chest pain, shortness of breath, cough or palpitations. Objective: Vitals: See below General: Sitting up in bedm chronic ally ill appearing, NAD, AAOx3 HEENT: NC, AT CVS: RRR, +S1S2, no noted m/r/g Lungs: CTAB, no evidence of wheezing, rales or rhonchi Abdomen: Soft, distended, no-tenderness noted Extremities: Has bilateral lower extremity pitting edema, no calf tenderness, WWP Labs: Reviewed, stable Imaging: CXR 02/07: Stable appearing chronic changes CT Abdomen / Pelvis 02/07: Evidence of cirrhosis and ascites along with other chronic changes as described above. There has been no significant change compared to 12/30/2020. Micro: 02/07 BCx - E. fecium, vanc sensitive 02/07 BCx - E. fecium, vanc sensitive and ESBL klebs 02/08 GPCs in pairs and chains Assessment: 66 yo M with FLOOD cirrhosis, CKD3 and hx of GIB who presented with abdominal pain and fatigue and admitted for severe sepsis, acute on chronic anemia and hepatorenal KAILEE that has improved with antibiotics, blood transfusion and albumin administration. Severe sepsis: resolved. Found to have E.fecium bacteremia and possible ESBL klebs as well - 02/10 BCx NGTD, f/u - UA negative - s/p fluids, albumin and pRBCs - was started on midodrine by nephrology - Continue vanc. Received zosyn for 7days. - 02/07 TTE was negative for veg, however had persistent E.fecium bacteremia, an no coverage until 02/10, BCx now negative - ID consulted 02/11, pending recs for further investigations, for now to continue vanc. Dr. Atwood is concerned about 3 episodes of bacteremia that she suspects are 2/2 gut translocation in this gentleman with history of pancreatic CA s/p Whipple and FLOOD cirrhosis without noted peritonitis. Nausea / Vomiting / Abdominal discomfort - Potentially 2/2 spontaneous bacterial peritonitis though fluid analysis is not convincing at this time though it was done after starting the antibiotics - Leukocytosis has resolved - Imaging noted above - s/p paracentesis/ f/u fluid studies. Pending paracentesis today with pre and post albumin - s/p Albumin and PRBC - c/w abx per above Acute blood loss anemia - Hg has had a significant drop - Patient had an EGD/colonoscopy on 01/19 --- EGD had revealed small AVM that was cauterized --- Colonoscopy had revealed polyps that were 3-5 mm and a large polyp of 2.5 cm - Occult stool positive - c/w Protonix; Started Carafate -Had EGD w/ Dr. Ortiz Acute on chronic anemia, thrombocytopenia and hyperbilirubinemia potentially 2/2 low grade DIC i/s/o sepsis, appears to have resolved Has acute on chronic anemia, thrombocytopenia, coagulopathy and low fibrinogen with hyperbilirubinemia. I suspect that he had some transient DIC that contributed to the acute on chronic anemia while there was a greater suspicion of overt GIB. -INR improved. -continue holding anticoagulants KAILEE on CKD3: resolved. Likely hepatorenal - Cr baseline appears to be ~1.5 - Diuretics were on hold i/s/o severe sepsis - Nephrology was called on consultation; appreciate their input Lactic acidosis: resolved - s/p intravascular repletion with IV fluids / albumin / PRBC Cirrhosis 2/2 FLOOD - Hx of Hepatic encephalopathy and recurrent ascites. S/p paracentesis/ f/u fluid studies. Pending LVP paracentesis today with pre and post albumin ordered - INR elevated with ongoing coagulopathy, KAILEE, hyperbili with a MELD of 31, with 30% mortality risk in 3m. - c/w Lactulose Pancreatic Carcinoma (s/p Whipple 2016) Chronic hyponatremia - likely 2/2 hypotonic hypovolemic, now improved - Baseline sodium appears to be in the low 130s - UA noted; FENa of 0.1% - Thyroid function / Cortisol levels unrevealing - Diuretics on hold - Nephrology consulted; appreciate their input Gastrointestinal prophylaxis - c/w Protonix DVT prophylaxis - s/p Heparin - c/w TEDs/Sequentials Code Status: - Full code Disposition: - Awaiting PT/OT final recs VS,Fishbone, I+O VS, Fishbone, I+O Laboratory Tests 02/15/21 08:16 02/15/21 08:17 Vital Signs Date Time Temp Pulse Resp B/P (MAP) Pulse Ox O2 Delivery O2 Flow Rate FiO2 02/15/21 11:10 97.9 73 18 112/72 98 Room Air I&O- Last 24 Hours up to 6 AM 02/15/21 06:00 Intake Total 1895 ml Output Total 450 ml Balance 1445 ml MED VANG MD Feb 15, 2021 14:44
--- NOTE | 2021-02-15 15:21 | REP ---
INDICATION: LVP The patient has a history of ascites COMPARISON: None. TECHNIQUE: The procedure was performed by THANH Meadows, under the direct supervision of Dr. Childress The risks and benefits of the procedure were explained to the patient and an informed consent was obtained both verbally and written. Directly prior to the start of the procedure a formal time-out was completed in the procedure room. The largest pocket of fluid was localized in the left flank using ultrasound guidance. The skin was prepped and draped in a sterile fashion. Eleven ML of buffered lidocaine was used as a local anesthetic. An 8-English multi side-hole catheter was inserted using trocar technique. FINDINGS: 6000 mL of yellow ascites was removed and discarded. The patient tolerated the procedure well and there were no immediate complications. After the appropriate amount of monitored convalescence, the patient was discharged from the department. IMPRESSION: Ultrasound-guided paracentesis with removal of 6000 mL of yellow ascites. <Electronically signed by Abeba Alcocer > 02/15/21 1510 <Electronically signed by Darvin Childress > 02/15/21 1515
[2021-02-15] MEDS: TAMSULOSIN 0.4 MG CAP PO SCH (21:01)
--- NOTE | 2021-02-15 21:44 | IPN ---
NEPHROLOGY PROGRESS NOTE DATE: 02/15/2021 SUBJECTIVE: Mr. Glez is seen this afternoon at his bedside. He underwent paracentesis this morning and 6 liters fluid was removed. He is receiving IV albumin now. He denies any nausea, vomiting, dyspnea or chest pain. His fever has improved. OBJECTIVE: PHYSICAL EXAMINATION: VITAL SIGNS: Temperature 98.7 degrees Fahrenheit, heart rate 66 per minute, respiratory rate 18 per minute. Blood pressure 108/62 mm of mercury and oxygen saturation 98% on room air. HEENT: His head is atraumatic. NECK: Supple and without JVD or thyroid enlargement. HEART: Sounds are regular. LUNGS: Slightly diminished breath sounds at the bases. ABDOMEN: Still distended but much improved compared to yesterday. Ascites is moderate now. EXTREMITIES: Without any cyanosis or clubbing. 1+ edema is present on the legs. LABORATORY STUDIES: Today's labs show a WBC count of 8.5, hemoglobin 11.8 and hematocrit 35, platelet count 117. Sodium 132, potassium 3.9, CO2 21, BUN 12 and creatinine 1.33. PROBLEMS: 1. Hyponatremia - sodium level is mostly stable, in the low 130's. It remains to be seen how he does tomorrow as he did have hyponatremia following paracentesis last week. 2. Acute kidney injury superimposed on chronic kidney disease - The patient had acute worsening of kidney function after his paracentesis last time. He is receiving IV albumin now and we hope that his kidney function will remain stable. Renal profile will be checked tomorrow. 3. Anemia at present his anemia is stable and does not need any urgent intervention. 4. Cirrhosis of the liver with recurrent ascites - The patient had paracentesis done today and 6 liters of fluid removed. He will continue with weekly paracentesis with a limit of maximum 6 liters fluid removal at one time.
[2021-02-16] MEDS: SUCRALFATE SUSP 1GM/10ML UD PO SCH ×5 (00:17→23:34)
[2021-02-16] MEDS: PIPERACILLIN/TAZOBACTAM SOD 3.375 GM in D5W MINI-BAG PLUS 50 ML IV SCH ×3 (03:45→15:07)
[2021-02-16 04:00] VITALS: BP 105/62
[2021-02-16 06:00] LABS: BASO % 0.4 % (0.0-1.0); HEMATOCRIT 30.1 % (42.0-52.0); HEMOGLOBIN 10.2 g/dl (13.5-17.5); LYMPH # 1.1 10^3/uL (1.5-5.0); LYMPH % 21.7 % (24.0-44.0); MEAN CORPUSCULAR HEMOGLOBIN 30.5 pg (27.0-33.0); MEAN CORPUSCULAR HGB CONC 33.9 g/dl (32.0-36.5); MEAN CORPUSCULAR VOLUME 90.1 fl (80.0-96.0); MONO # 0.5 10^3/uL (0.0-0.8); MONO % 9.8 % (2.0-8.0); NEUTROPHILS # 3.3 10^3/uL (1.5-8.5); NEUTROPHILS % 67.3 % (36.0-66.0); PLATELET COUNT, AUTOMATED 103 10^3/uL (150-450); RED BLOOD COUNT 3.34 10^6/uL (4.30-6.10); WHITE BLOOD COUNT 4.9 10^3/uL (4.0-10.0)
[2021-02-16 06:22] LABS: BLOOD UREA NITROGEN 9 MG/DL (7-18); CALCIUM LEVEL 7.5 MG/DL (8.8-10.2); CARBON DIOXIDE LEVEL 22 MEQ/L (21-32); CHLORIDE LEVEL 103 MEQ/L (98-107); CREATININE FOR GFR 1.11 MG/DL (0.70-1.30); GLOMERULAR FILTRATION RATE > 60.0 (>49); GLUCOSE, FASTING 106 MG/DL (70-100); POTASSIUM SERUM 3.8 MEQ/L (3.5-5.1); SODIUM LEVEL 134 MEQ/L (136-145)
[2021-02-16] MEDS: LACTULOSE 20 GM/30 ML SYRUP UD PO SCH ×5 (06:37→23:34)
[2021-02-16] MEDS: VANCOMYCIN HCL 750 MG, VIAL MATE ADAPTER 1 EACH in NS 250 ML IV SCH ×2 (06:38→17:26)
[2021-02-16] MEDS: SODIUM CHLORIDE 0.9% INJ 10 ML SYR IV SCH ×2 (06:38→17:27)
[2021-02-16] MEDS: PANTOPRAZOLE 40MG VIAL (C9113 PER 1) IV SCH ×2 (06:38→17:26)
[2021-02-16 08:00] VITALS: BP 98/66
--- NOTE | 2021-02-16 08:13 | IPN ---
PROGRESS NOTE DATE: 02/15/2021 SUBJECTIVE: Massimo seems to be doing well, except being fatigued. He had a paracentesis this morning. He denied any nausea, vomiting or diarrhea. He is anxious to go home. He has not had any fever. The patient states that he does not usually have fevers when he gets admitted to the hospital. Of note, upon review of his chart, this is the patient's third episode of bacteremia. 12/30, the patient had bacteremia. On 12/31, he had Clostridium difficile colitis. 01/12 he had again bacteremia with E. coli, two sets. 02/07 the patient had Enterococcus faecium and ESBL Klebsiella pneumonia bacteremia. The E. faecium was in three separate blood culture bottles. LABORATORY DATA: Wbc 8.5, hemoglobin 11.8, hematocrit 35.1, platelets 117. Sodium 132, potassium 3.9, chloride 101, bicarbonate 21, BUN 12, creatinine 1.33, glucose 198, calcium 7.8, magnesium 1.8. Peritoneal fluid on 02/09, had only 100 white cells, 88% lymphocytes and 12% monocytes. Blood culture bottles on 02/10 were negative and peritoneal fluid culture was negative. OBJECTIVE: On physical examination, temperature is 97.5, pulse 71, respirations 20, blood pressure 114/69, O2 saturation 99% on room air. Heart: Normal S1, S2. No murmurs. Lungs are clear. No wheezes, rales or rhonchi. Abdomen with ascites. Extremities with +1 pitting edema. Sclerae slightly icteric. IMPRESSION: 1. Recurrent bacteremia Ecoli/ Efecium/ Klebsiella, three separate episodes documented on 12/30 with E.coli, 01/12 with E. coli and currently on 02/07 with E. faecium and Klebsiella ESBL. Concerning where the source of this bacteremia, the only possible etiology would be from the gut. The patient has a history of Whipple procedure and may have some area of dehiscence or where the patient is developing bacteremia and ending up in the hospital. He has had multiple studies in the past two months including multiple CT of abdomen and pelvis, usually without contrast. MRI of the abdomen was done in November. There is only evidence of cirrhosis and ascites. He has received 8 days of IV Zosyn since 02/07, will be discontinued tomorrow. He is currently also on IV vancomycin. 2. Liver cirrhosis with a history of pancreatic cancer. The patient is on the transplant list. PLAN: Will discuss tomorrow with his transplant team and hepatology at [facility]. Further workup recording the bacteremia, whether it should be at [facility]. Continue with IV vancomycin. Discontinue Zosyn tomorrow. He will finish a 10 day course of Zosyn for ESBL Klebsiella. CT of abdomen and pelvis was done on 02/07 without any contrast showed cirrhosis and ascites, but no other findings. The case was discussed with Dr. Cortes. 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 JAMILAH
[2021-02-16] MEDS: MIDODRINE 5 MG TAB PO SCH ×3 (09:09→16:38)
--- NOTE | 2021-02-16 11:06 | IPNPDOC ---
Text Note Date of Service The patient was seen on 02/16/21. NOTE Subjective: Patient is a 66-year-old male with a PMHx of Cirrhosis (2/2 FLOOD; Hx of Hepatic encephalopathy, Recurrent ascites), Pancreatic Carcinoma (s/p Whipple 2016), CKD3, Chronic hyponatremia, GERD who presented to the emergency room on 02/07 with complaints of nausea and 1 episode of vomiting this morning. Patient reported that on 02/06 he was fine, but when he went to bed and woke up, he felt sick and nauseated. He vomited once and describes the vomitus is clear without any evidence of blood. Patient reported associated diffuse abdominal discomfort. Patient was admitted to the hospital service for further evaluation and treatment of nephrology was called on consultation. And hospital course was completed with hypotension for which she was transferred to the ICU for critical monitoring. He also had a drop in hemoglobin and underwent an endoscopy. Patient was seen and examined at the bedside. Patient denies any chest pain, shortness breath, palpitations, nausea, vomiting or abdominal pain. Patient is seen sitting up in chair after completing paracentesis yesterday. Objective: Vitals (See below) General: Sitting up in chair, appears comfortable, not in any acute distress, AAOx3 HEENT: Normocephalic and atraumatic CVS: +S1S2 Lungs: There appears to be fair air entry bilaterally without any evidence of c rackles, wheezing or rhonchi on auscultation Abdomen: Soft without any distention or tenderness, +Rivera Extremities: Lower tremors still reveal trace pitting edema Imaging: CXR 02/07: Stable appearing chronic changes CT Abdomen / Pelvis 02/07: Evidence of cirrhosis and ascites along with other chronic changes as described above. There has been no significant change compared to 12/30/2020. Paracentesis US 02/09: Ultrasound-guided paracentesis yielding 6150 mL of yellow fluid. Vascular US 02/09: No evidence of DVT in the femoropopliteal veins. No DVT in the visible portions of the calf veins. Paracentesis US 02/15: Ultrasound-guided paracentesis with removal of 6000 mL of yellow ascites. Assessment and Plan: s/p Severe Sepsis - 2/2 E. faecium bacteremia and possible ESBL klebsiella as well - Patient is afebrile - Blood cultures 02/07: both positive for gram positive cocci in pairs and chains - PCT pending - Procalcitonin mildly elevated - UA negative - c/w Vancomycin (Day #7) and Zosyn (Day #10) - ID, Dr. Atwood on consultation; possible source of bacteremia could be from intra-abdominal source Nausea / Vomiting / Abdominal discomfort - possibly 2/2 spontaneous bacterial peritonitis - Resolution of symptoms - Afebrile and hemodynamically stable - Peritoneal fluid unrevealing for infection - however has been on antibiotics - Leukocytosis has improved - Imaging noted above - s/p Paracentesis x 2 (Removal of 6100 and 6000 cc of fluid) - c/w Albumin and PRBC - Antibiotics (See above) Acute blood loss anemia - Hg remains stable - s/p 3 units PRBC - Patient has had an EGD/colonoscopy on 01/19 --- EGD had revealed small AVM that was cauterized --- Colonoscopy had revealed polyps that were 3-5 mm and a large polyp of 2.5 cm - EGD inpatient on 02/[address] Ortiz; unrevealing - Occult stool positive - c/w Protonix / Carafate - GI on consult; Dr. Ortiz KAILEE on CKD3 - Cr baseline appears to be ~1.5 - Possibly component of hepatorenal syndrome - Diuretics on hold - Nephrology was called on consultation; appreciate their input s/p Lactic acidosis Cirrhosis 2/2 FLOOD - Hx of Hepatic encephalopathy and recurrent ascites - INR noted - c/w Lactulose Pancreatic Carcinoma (s/p Whipple 2016) Chronic hyponatremia - likely 2/2 hypotonic hypovolemic etiology 2/2 ascites - Baseline sodium appears to be in the low 130s - UA noted; FENa of 0.1% - Thyroid function / Cortisol levels unrevealing - Diuretics on hold - Nephrology consulted; appreciate their input Gastrointestinal prophylaxis - c/w Protonix DVT prophylaxis - s/p Heparin - c/w TEDs/Sequentials Code Status: - Full code Disposition: - Awaiting clinical improvement - Cleared PT VS,Fishbone, I+O VS, Fishbone, I+O Laboratory Tests 02/16/21 05:38 Vital Signs Date Time Temp Pulse Resp B/P (MAP) Pulse Ox O2 Delivery O2 Flow Rate FiO2 02/16/21 08:00 97.4 105 20 98/66 (77) 99 Room Air I&O- Last 24 Hours up to 6 AM 02/16/21 06:00 Intake Total 770.0 ml Output Total 450 ml Balance 320.0 ml DHAVAL VAUGHAN MD Feb 16, 2021 11:06
[2021-02-16 12:00] VITALS: BP 106/67
--- NOTE | 2021-02-16 14:44 | CR ---
CONSULTATION DATE: 02/11/2021 HISTORY OF PRESENT ILLNESS: Massimo Glez is a 66-year-old male who initially presented to the hospital due to an episode of vomiting at home and feeling generally weak and unwell. The patient states that he had woken up from bed feeling sick and nauseated. He had an episode of vomiting which he describes as clear. There was no blood in his vomit. He reports feeling very weak that day and felt that he needed to be further evaluated. He denies having any additional symptoms at that time. He does note some persistent diffuse abdominal discomfort which typically gets worse when his ascitic fluid builds up. He states that he has been in and out of hospitals recently for multiple reasons including decompensation of cirrhosis, GI bleeding related to his cirrhosis and infection. He was noted to have bacteremia on prior admissions notable with E. coli bacteremia on January 12 and December 30. He also has history of C. diff infection on December 31. He recently had upper and lower endoscopies performed at [facility] on 01/19/2021. 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 His colonoscopy at that time showed multiple polyps which were removed and he is planned for repeat colonoscopy in one year for further surveillance. Currently on this admission, the patient grew Enterococcus faecium in two blood cultures on 02/07/2021. One blood culture on 02/07/2021 also grew Klebsiella pneumoniae ESBL. The patient had repeat blood cultures and grew Enterococcus faecium in one of two cultures on 02/08/2021. The patient has also had paracentesis with ascitic fluid sent for culture on 02/09/2021 which was negative. Of note, the patient has been on antibiotics with Zosyn since 01/18/2021. The patient also has been started on IV Vancomycin on 02/10/2021. MEDICAL HISTORY: 1. FLOOD cirrhosis with history of recurrent ascites and episode of hepatic encephalopathy. 2. Pancreatic cancer, status post chemotherapy and Whipple procedure 2017. 3. CKD stage 3. 4. Chronic hyponatremia. 5. GAVE with GERD. SURGICAL HISTORY: 1. Right knee surgery. 2. Cholecystectomy with Whipple procedure 2017. FAMILY MEDICAL HISTORY: Father had hypertension and stroke. Mother had stroke, diabetes, triple CABG. The patient has one son who had colon cancer. SOCIAL HISTORY: Denies any use of alcohol, tobacco or illicit substances. He lives at home with his . REVIEW OF SYSTEMS: General: Denies fevers, chills, night sweats, fatigue, change in weight. HEENT: Denies change in vision, change in hearing. Cardiovascular: Denies chest pain, palpitations. Respiratory: Denies cough, wheezing, shortness of breath. GI: Endorses nausea and vomiting per HPI. Endorses generalized abdominal pain per HPI. Denies diarrhea, constipation, blood in stool. : Denies dysuria, urinary frequency, urinary urgency. He does have a Rivera catheter in currently. He does have history of urinary retention. Skin: Denies new rashes. Musculoskeletal: Denies joint pains or muscle aches. Neurologic: Denies headaches, dizziness. He does endorse weakness which is generalized and is worse when he is feeling unwell. Psychiatric: Denies change in mood PHYSICAL EXAM: VITAL SIGNS: Temperature 97.9 degrees Fahrenheit temporal. Heart rate 93 Respiratory rate: 16 blood pressure 113/79. Satting 100 % on room air. GENERAL: The patient appears comfortable sitting up in a chair in no acute distress. HEENT: Normocephalic and atraumatic. Moist mucous membranes. CARDIOVASCULAR: Normal S1 and S2. Regular rate and rhythm. LUNGS: Clear to auscultation bilaterally without wheezing, rhonchi or rales. ABDOMEN: Soft, nondistended, nontender. Bowel sounds present. EXTREMITIES: Bilateral pitting edema up to the knees. ASSESSMENT/PLAN: [age]-old male with past medical history of cirrhosis and pancreatic adenocarcinoma, status post chemotherapy and Whipple procedure in 2018 now in remission who presented with bacteremia secondary to Enterococcus faecium and Klebsiella extended spectrum beta-lactamase (ESBL) without clear source of bacteremia. Recurrent bacteremia. Patient has bacteremia currently with Enterococcus faecium and Klebsiella ESBL. He also has had two prior hospitalizations with bacteremia secondary to Escherichia coli. At this point, it seems unclear still but GI source seems the most likely given the patient's history and the bacteria involved. We will continue IV vancomycin for Enterococcus faecium and continue Zosyn for the Klebsiella ESBL. We will check an ESR and CRP on the morning labs. MTDD
[2021-02-16] MEDS: SODIUM CHLORIDE 0.9% INJ 10 ML SYR IV PRN (16:39)
[2021-02-16] MEDS: TAMSULOSIN 0.4 MG CAP PO SCH (20:17)
[2021-02-16 22:00] VITALS: BP 96/68
[2021-02-17] MEDS: LACTULOSE 20 GM/30 ML SYRUP UD PO SCH ×2 (05:34→12:00)
[2021-02-17] MEDS: SUCRALFATE SUSP 1GM/10ML UD PO SCH ×2 (05:34→12:19)
[2021-02-17] MEDS: PANTOPRAZOLE 40MG VIAL (C9113 PER 1) IV SCH (05:35)
[2021-02-17] MEDS: SODIUM CHLORIDE 0.9% INJ 10 ML SYR IV SCH (05:35)
[2021-02-17 05:48] LABS: BASO % 0.5 % (0.0-1.0); HEMATOCRIT 33.7 % (42.0-52.0); HEMOGLOBIN 11.6 g/dl (13.5-17.5); LYMPH # 1.8 10^3/uL (1.5-5.0); LYMPH % 22.2 % (24.0-44.0); MEAN CORPUSCULAR HEMOGLOBIN 31.1 pg (27.0-33.0); MEAN CORPUSCULAR HGB CONC 34.4 g/dl (32.0-36.5); MEAN CORPUSCULAR VOLUME 90.3 fl (80.0-96.0); MONO # 0.6 10^3/uL (0.0-0.8); MONO % 7.3 % (2.0-8.0); NEUTROPHILS # 5.7 10^3/uL (1.5-8.5); NEUTROPHILS % 69.4 % (36.0-66.0); PLATELET COUNT, AUTOMATED 132 10^3/uL (150-450); RED BLOOD COUNT 3.73 10^6/uL (4.30-6.10); WHITE BLOOD COUNT 8.2 10^3/uL (4.0-10.0)
[2021-02-17 06:00] VITALS: BP 96/70
[2021-02-17 06:18] LABS: BLOOD UREA NITROGEN 10 MG/DL (7-18); CALCIUM LEVEL 7.6 MG/DL (8.8-10.2); CARBON DIOXIDE LEVEL 23 MEQ/L (21-32); CHLORIDE LEVEL 103 MEQ/L (98-107); CREATININE FOR GFR 1.17 MG/DL (0.70-1.30); GLOMERULAR FILTRATION RATE > 60.0 (>49); GLUCOSE, FASTING 111 MG/DL (70-100); POTASSIUM SERUM 4.1 MEQ/L (3.5-5.1); SODIUM LEVEL 132 MEQ/L (136-145)
[2021-02-17] MEDS: VANCOMYCIN HCL 750 MG, VIAL MATE ADAPTER 1 EACH in NS 250 ML IV SCH (06:54)
--- NOTE | 2021-02-17 08:09 | IPN ---
INFECTIOUS DEISEASE PROGRESS NOTE DATE: 02/16/2021 SUBJECTIVE: The patient was seen and examined today at bedside. He states that he is feeling well. He did have a paracentesis done yesterday. He is anxious to go home as soon a possible as he is feeling improved from his admission. OBJECTIVE: VITAL SIGNS: Temperature 97.4 degrees Fahrenheit temporal. Heart rate 70. Respiratory rate: 20. Blood pressure 106/67. Satting 98% on room air. GENERAL: The patient appears comfortable sitting up in a chair in no acute distress. HEENT: Normocephalic and atraumatic. Moist mucous membranes. CARDIOVASCULAR: Normal S1 and S2. Regular rate and rhythm. LUNGS: Clear to auscultation bilaterally without wheezing, rhonchi or rales. ABDOMEN: Soft, nondistended, nontender. Bowel sounds present. EXTREMITIES: Bilateral pitting edema up to the knees. ASSESSMENT/PLAN: Pzktx[age]hdkq-lxkh-old male with past medical history of cirrhosis and pancreatic adenocarcinoma, status post chemotherapy and Whipple procedure in 2018 now in remission who presented with bacteremia secondary to Enterococcus faecium and Klebsiella extended spectrum beta-lactamase (ESBL) without clear source of bacteremia. Recurrent bacteremia. Patient has bacteremia currently with Enterococcus faecium and Klebsiella ESBL. He also has had two prior hospitalizations with bacteremia secondary to Escherichia coli. We reviewed the patient's recent abdominal/pelvis CT scan with radiologist Dr. Childress who did not see any evidence of microperforation, which could be seeding the bacteria from the GI tract. At this point, it seems unclear still but GI source seems the most likely given the patient's history and the bacteria involved. We will continue IV vancomycin at this point. 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 and come up with a plan prior to discharge home. The patient has completed extended course of Zosyn for ESBL Klebsiella and that has been discontinued today.
[2021-02-17] MEDS: MIDODRINE 5 MG TAB PO SCH ×2 (08:45→12:19)
--- NOTE | 2021-02-17 11:07 | IPNPDOC ---
Text Note Date of Service The patient was seen on 02/17/21. NOTE Subjective: Patient is a 66-year-old male with a PMHx of Cirrhosis (2/2 FLOOD; Hx of Hepatic encephalopathy, Recurrent ascites), Pancreatic Carcinoma (s/p Whipple 2016), CKD3, Chronic hyponatremia, GERD who presented to the emergency room on 02/07 with complaints of nausea and 1 episode of vomiting this morning. Patient reported that on 02/06 he was fine, but when he went to bed and woke up, he felt sick and nauseated. He vomited once and describes the vomitus is clear without any evidence of blood. Patient reported associated diffuse abdominal discomfort. Patient was admitted to the hospital service for further evaluation and treatment of nephrology was called on consultation. And hospital course was completed with hypotension for which she was transferred to the ICU for critical monitoring. He also had a drop in hemoglobin and underwent an endoscopy. Patient was seen and examined at the bedside. Patient is lying in bed comfortably watching television. He denies any chest pain, shortness of breath, palpitations, nausea, vomiting or abdominal pain. He has had bowel movements. He has a Rivera catheter in place. Objective: Vitals (See below) General: Patient is sitting up in bed, appears comfortable, not in any acute distress, is awake, alert and oriented 3 HEENT: AT, NC CVS: +S1S2 Lungs: There is fair air entry bilaterally without any evidence of crackles, wheezing or rhonchi Abdomen: Abdomen is soft without any distention or tenderness Extremities: trace to 1+ pitting edema bilaterally Imaging: CXR 02/07: Stable appearing chronic changes CT Abdomen / Pelvis 02/07: Evidence of cirrhosis and ascites along with other chronic changes as described above. There has been no significant change compared to 12/30/2020. Paracentesis US 02/09: Ultrasound-guided paracentesis yielding 6150 mL of yellow fluid. Vascular US 02/09: No evidence of DVT in the femoropopliteal veins. No DVT in the visible portions of the calf veins. Paracentesis US 02/15: Ultrasound-guided paracentesis with removal of 6000 mL of yellow ascites. Assessment and Plan: s/p Severe Sepsis - 2/2 E. faecium bacteremia and possible ESBL klebsiella as well - Patient is afebrile - Blood cultures 02/07: E. Faecium / Klebsiella Pneumoniae ESBL - PCT 0.72 - UA negative - c/w Vancomycin (Day #8); s/p Zosyn (Day #10) - ID, Dr. Atwood on consultation; possible source of bacteremia could be from intra-abdominal source - awaiting clearance for discharge home s/p Nausea / Vomiting / Abdominal discomfort - possibly 2/2 intra-abdominal source of infection, possibly 2/2 ascites, no evidence of SBP 0 Has remained afebrile and hemodynamically stable - Peritoneal fluid unrevealing for infection - however has been on antibiotics - s/p Leukocytosis - Imaging noted above - s/p Paracentesis x 2 (Removal of 6100 and 6000 cc of fluid) - c/w Albumin and PRBC - Antibiotics (See above) Acute blood loss anemia - Hg remains stable - s/p 3 units PRBC - Patient has had an EGD/colonoscopy on 01/19 --- EGD had revealed small AVM that was cauterized --- Colonoscopy had revealed polyps that were 3-5 mm and a large polyp of 2.5 cm - EGD inpatient on 02/[address] Ortiz; unrevealing - Occult stool positive - c/w Protonix / Carafate - GI on consult; Dr. Ortiz KAILEE on CKD3 - Cr baseline appears to be ~1.5 - Possibly component of hepatorenal syndrome - Diuretics on hold - Nephrology was called on consultation; appreciate their input s/p Lactic acidosis Cirrhosis 2/2 FLOOD - Hx of Hepatic encephalopathy and recurrent ascites - INR noted - c/w Lactulose Hypotension - c/w Midodrine Pancreatic Carcinoma - s/p Whipple 2016 Chronic hyponatremia - likely 2/2 hypotonic hypovolemic etiology 2/2 ascites - Baseline sodium appears to be in the low 130s - UA noted; FENa of 0.1% - Thyroid function / Cortisol levels unrevealing - Diuretics on hold - Nephrology consulted; appreciate their input Gastrointestinal prophylaxis - c/w Protonix DVT prophylaxis - s/p Heparin - c/w TEDs/Sequentials Code Status: - Full code Disposition: - Awaiting clinical improvement / ID clearance - Cleared PT - Will likely be DC'd Home with services VS,Jim, I+O VS, Jim, I+O Laboratory Tests 02/17/21 05:34 Vital Signs Date Time Temp Pulse Resp B/P (MAP) Pulse Ox O2 Delivery O2 Flow Rate FiO2 02/17/21 06:00 97.8 100 14 96/70 (29) 97 Room Air I&O- Last 24 Hours up to 6 AM 02/17/21 05:59 Intake Total 1194 ml Output Total 200 ml Balance 994 ml DHAVAL VAUGHAN MD Feb 17, 2021 11:07
[2021-02-17] MEDS ORDERED: MIDO5TA PO (13:56)
[2021-02-17] MEDS ORDERED: LINE1TAB6 PO (13:56)
[2021-02-17] MEDS ORDERED: CARA1TAB6 PO (13:56)
[2021-02-17 14:00] VITALS: BP 115/72
--- NOTE | 2021-02-17 15:32 | DS.PDOC ---
Discharge Summary General Date of Admission Feb 07, 2021 at 14:44 Date of Discharge 02/17/2021 Discharge Summary PROCEDURES PERFORMED DURING STAY: EGD on 02/[address] Ortiz Paracentesis on 02/09 with IR Paracentesis on 02/15 with IR ADMITTING DIAGNOSES / DISCHARGE DIAGNOSES: s/p Severe Sepsis - 2/2 E. faecium bacteremia and possible ESBL klebsiella as well s/p Nausea / Vomiting / Abdominal discomfort - possibly 2/2 intra-abdominal source of infection, possibly 2/2 ascites, no evidence of SBP Acute blood loss anemia KAILEE on CKD3 s/p Lactic acidosis Cirrhosis 2/2 FLOOD Hypotension Pancreatic Carcinoma Chronic hyponatremia - likely 2/2 hypotonic hypovolemic etiology 2/2 ascites Gastrointestinal prophylaxis DVT prophylaxis COMPLICATIONS/CHIEF COMPLAINT: Abdominal discomfort HISTORY OF PRESENT ILLNESS: Patient is a 66-year-old male with a PMHx of Cirrhosis (2/2 FLOOD; Hx of Hepatic encephalopathy, Recurrent ascites), Pancreatic Carcinoma (s/p Whipple 2016), CKD3, Chronic hyponatremia, GERD who presented to the emergency room on 02/07 with complaints of nausea and 1 episode of vomiting this morning. Patient reported that on 02/06 he was fine, but when he went to bed and woke up, he felt sick and nauseated. He vomited once and describes the vomitus is clear without any evidence of blood. Patient reported associated diffuse abdominal discomfort. Patient was admitted to the hospital service for further evaluation and treatment of nephrology was called on consultation. And hospital course was completed with hypotension for which she was transferred to the ICU for critical monitoring. He also had a drop in hemoglobin and underwent an endoscopy. Patient was seen and examined at the bedside. Patient is lying in bed comfortably watching television. He denies any chest pain, shortness of breath, palpitations, nausea, vomiting or abdominal pain. He has had bowel movements. He has a Rivera catheter in place. HOSPITAL COURSE: s/p Severe Sepsis - 2/2 E. faecium bacteremia and possible ESBL klebsiella as well - Patient is afebrile - Blood cultures 02/07: E. Faecium / Klebsiella Pneumoniae ESBL - PCT 0.72 - UA negative - Will DC Vancomycin (Day #8); s/p Zosyn (Day #10); discussed with infectious disease, will continue with linezolid for 6 additional days until seen and evaluated by [place] [facility] - ID, Dr. Atwood on consultation; multiple episodes of bacteremia over last few months, suspect possible source of bacteremia could be from intra-abdominal s ource - awaiting clearance for discharge home s/p Nausea / Vomiting / Abdominal discomfort - possibly 2/2 intra-abdominal source of infection, possibly 2/2 ascites, no evidence of SBP - Has remained afebrile and hemodynamically stable - Peritoneal fluid unrevealing for infection - however has been on antibiotics - s/p Leukocytosis - Imaging noted above - s/p Paracentesis x 2 (Removal of 6100 and 6000 cc of fluid) - c/w Albumin and PRBC - Antibiotics (See above) Acute blood loss anemia - Hg remains stable - s/p 3 units PRBC - Patient has had an EGD/colonoscopy on 01/19 --- EGD had revealed small AVM that was cauterized --- Colonoscopy had revealed polyps that were 3-5 mm and a large polyp of 2.5 cm - EGD inpatient on 02/[address] Ortiz; unrevealing - Occult stool positive - c/w Protonix / Carafate - GI on consult; Dr. Ortiz - Will have outpatient follow-up with primary care provider, gastroenterology and transplant clinic within the next 7 days KAILEE on CKD3 - Cr baseline appears to be ~1.5 - Possibly component of hepatorenal syndrome - Diuretics on hold - Nephrology was called on consultation; appreciate their input - Will have outpatient follow-up with nephrology within the next 7 days s/p Lactic acidosis Cirrhosis 2/2 FLOOD - Hx of Hepatic encephalopathy and recurrent ascites - INR noted - c/w Lactulose - Will have outpatient follow-up with [place] [facility] within the next 7 days Hypotension - c/w Midodrine Pancreatic Carcinoma - s/p Whipple 2017 Chronic hyponatremia - likely 2/2 hypotonic hypovolemic etiology 2/2 ascites - Baseline sodium appears to be in the low 130s - UA noted; FENa of 0.1% - Thyroid function / Cortisol levels unrevealing - Diuretics on hold; will continue to hold on discharge - Nephrology consulted; appreciate their input - Will have outpatient follow-up with nephrology within the next 7 days Gastrointestinal prophylaxis - c/w Protonix DVT prophylaxis - s/p Heparin - c/w TEDs/Sequentials DISCHARGE MEDICATIONS: Please see below. ALLERGIES: Please see below. PHYSICAL EXAMINATION ON DISCHARGE: Vitals (See below) General: Patient is sitting up in bed, appears comfortable, not in any acute distress, is awake, alert and oriented 3 HEENT: AT, NC CVS: +S1S2 Lungs: There is fair air entry bilaterally without any evidence of crackles, wheezing or rhonchi Abdomen: Abdomen is soft without any distention or tenderness Extremities: trace to 1+ pitting edema bilaterally LABORATORY DATA: Please see below. IMAGING: CXR 02/07: Stable appearing chronic changes CT Abdomen / Pelvis 02/07: Evidence of cirrhosis and ascites along with other chronic changes as described above. There has been no significant change compared to 12/30/2020. Paracentesis US 02/09: Ultrasound-guided paracentesis yielding 6150 mL of yellow fluid. Vascular US 02/09: No evidence of DVT in the femoropopliteal veins. No DVT in the visible portions of the calf veins. Paracentesis US 02/15: Ultrasound-guided paracentesis with removal of 6000 mL of yellow ascites. ACTIVITY: [As tolerated]. DISCHARGE PLAN: Follow-up with primary care provider, gastroenterology, nephrology, in [place] [facility] within the next 7 days Remain compliant with treatment plan and medications Return to the ER if you experience any problems DISPOSITION: Home with services DISCHARGE CONDITION: [Stable]. TIME SPENT ON DISCHARGE: 35 minutes. Vital Signs/I&Os Vital Signs Date Time Temp Pulse Resp B/P (MAP) Pulse Ox O2 Delivery O2 Flow Rate FiO2 02/17/21 14:00 98.2 80 17 115/72 (86) 100 Room Air I&O- Last 24 Hours up to 6 AM 02/17/21 05:59 Intake Total 1194 ml Output Total 200 ml Balance 994 ml Laboratory Data Labs 24H Laboratory Tests 2 02/16/21 16:44: Vancomycin Level Trough 20.6H 02/17/21 05:34: Vancomycin Level Trough 20.5H, Immature Granulocyte % (Auto) 0.6, Neutrophils (%) (Auto) 69.4H, Lymphocytes (%) (Auto) 22.2L, Monocytes (%) (Auto) 7.3, Eosinophils (%) (Auto) 0.0, Basophils (%) (Auto) 0.5, Neutrophils # (Auto) 5.7, Lymphocytes # (Auto) 1.8, Monocytes # (Auto) 0.6, Eosinophils # (Auto) 0.0, Basophils # (Auto) 0.0, Nucleated Red Blood Cells % (auto) 0.0, Anion Gap 6L, Glomerular Filtration Rate > 60.0, Calcium Level 7.6L CBC/BMP Laboratory Tests 02/17/21 05:34 Microbiology Microbiology 02/10/21 Blood Culture - Final, Complete NO GROWTH AFTER 5 DAYS 02/10/21 Blood Culture - Final, Complete NO GROWTH AFTER 5 DAYS 02/09/21 Acid Fast Stain, Received Pending 02/09/21 Mycobacterial Culture, Received Pending 02/09/21 Fungal Smear, Received Pending 02/09/21 Fungal Culture, Received Pending 02/09/21 Gram Stain - Final, Complete 02/09/21 Body Fluid Culture - Final, Complete 02/08/21 Blood Culture - Final, Complete NO GROWTH AFTER 5 DAYS 02/08/21 Blood Culture - Final, Complete Enterococcus Faecium 02/08/21 Stool Occult Blood (ALONDRA) - Final, Complete 02/07/21 Blood Culture - Final, Complete Enterococcus Faecium Klebsiella Pneumoniae Esbl 02/07/21 Blood Culture - Final, Complete Enterococcus Faecium Discharge Medications Scheduled Cholecalciferol (Vitamin D3) (Vitamin D3) 1,000 Unit Tablet, 1,000 UNITS PO DAILY, (Reported) Lactulose (Lactulose) 10 Gm/15 Ml Solution, 30 ML PO TID, (Reported) MORNING/DINNER/BEDTIME Linezolid (Linezolid) 600 Mg Tablet, 1 TAB PO BID Midodrine HCl (Midodrine HCl) 5 Mg Tablet, 5 MG PO 08,12,16 Omeprazole (Omeprazole) 20 Mg Capsule.dr, 20 MG PO DAILY, (Reported) Sucralfate (Carafate) 1 Gm Tablet, 1 GM PO ACHS 4 times per day take on an empty stomach Tamsulosin HCl (Flomax) 0.4 Mg Capsule, 0.4 MG PO QHS, (Reported) Allergies Coded Allergies: No Known Allergies (Unverified , 01/08/18) DHAVAL VAUGHAN MD Feb 17, 2021 15:32
== END 2021-02-17 15:30 | disposition home health service (06) | DRG 710 ==
LOC: M ED 11:59 → M ED INP 14:44 → EEVIPCON 14:44 → ENRESERV 16:42 → M PCU 18:36 → M ICU 02-08 07:59 → M PCU 02-10 19:41 → M MSPAV 02-16 15:59
PROVIDERS: ADMIT Internal Medicine; ATTEND Internal Medicine
PROC: 30233N1 Transfusion of Nonautologous Red Blood Cells into Peripheral Vein, Percutaneous Approach (ICD-10-PCS; 2021-02-07)
PROC: 02HV33Z Insertion of Infusion Device into Superior Vena Cava, Percutaneous Approach (ICD-10-PCS; 2021-02-08)
PROC: 0DJ08ZZ Inspection of Upper Intestinal Tract, Via Natural or Artificial Opening Endoscopic (ICD-10-PCS; principal; 2021-02-08 09:19)
PROC: 0W9G3ZX Drainage of Peritoneal Cavity, Percutaneous Approach, Diagnostic (ICD-10-PCS; 2021-02-09)
PROC: 30233J1 Transfusion of Nonautologous Serum Albumin into Peripheral Vein, Percutaneous Approach (ICD-10-PCS; 2021-02-09)
PROC: 0W9G3ZZ Drainage of Peritoneal Cavity, Percutaneous Approach (ICD-10-PCS; 2021-02-15)
DX: A41.89 Other specified sepsis (principal); R65.21 Severe sepsis with septic shock; E87.2 Acidosis; R18.8 Other ascites; I50.32 Chronic diastolic (congestive) heart failure; N17.9 Acute kidney failure, unspecified; D69.6 Thrombocytopenia, unspecified; N18.30 Chronic kidney disease, stage 3 unspecified; E87.1 Hypo-osmolality and hyponatremia; D62 Acute posthemorrhagic anemia; K74.69 Other cirrhosis of liver; K75.81 Nonalcoholic steatohepatitis (NASH); E80.6 Other disorders of bilirubin metabolism; R11.2 Nausea with vomiting, unspecified; K21.9 Gastro-esophageal reflux disease without esophagitis; Z98.0 Intestinal bypass and anastomosis status; Z85.07 Personal history of malignant neoplasm of pancreas; Z90.49 Acquired absence of other specified parts of digestive tract; Z79.899 Other long term (current) drug therapy

== ENCOUNTER 2021-02-18 19:44 | Emergency (ER) | payer BC ==
[~2021-02-18] VITALS: Ht 177.8 cm; Wt 72.7 kg
[~2021-02-18 19:44] MED LIST changes: +CARA1TAB6 PO; +LINE1TAB6 PO; +MIDO5TA PO
[2021-02-18 19:46] VITALS: BP 111/63
== END 2021-02-18 22:03 | disposition home or self-care (01) ==
LOC: M ED 19:44
DX: R33.9 Retention of urine, unspecified (principal); E11.9 Type 2 diabetes mellitus without complications; I10 Essential (primary) hypertension; E78.5 Hyperlipidemia, unspecified; G47.33 Obstructive sleep apnea (adult) (pediatric); K21.9 Gastro-esophageal reflux disease without esophagitis; N40.1 Benign prostatic hyperplasia with lower urinary tract symptoms; K75.81 Nonalcoholic steatohepatitis (NASH); M54.9 Dorsalgia, unspecified; Z86.711 Personal history of pulmonary embolism; Z79.899 Other long term (current) drug therapy

== ENCOUNTER 2021-02-20 12:50 | Inpatient (IN) | payer BC ==
[~2021-02-20] VITALS: Ht 177.8 cm; Wt 72.6 kg
[2021-02-20] MEDS ORDERED: LIDOCAINE 2% 5ML JELLY UROJET TOP ONE (15:10)
--- NOTE | 2021-02-20 16:37 | REP ---
INDICATION: abd distention, urinary retention COMPARISON: 02/07/2021 TECHNIQUE: Axial noncontrast images from the lung bases to the pubic symphysis with coronal and sagittal reformations. This CT examination was performed using the following dose reduction techniques: Automated exposure control, adjustment of mA and/or kv according to the patient's size, and use of iterative reconstruction technique. FINDINGS: Cirrhosis with marked ascites is again noted and essentially unchanged. Spleen, pancreas, bilateral adrenal glands and kidneys are normal/stable. No evidence for bowel obstruction or obvious mucosal thickening to suggest enteric inflammatory process. No free air. Pelvis demonstrates Rivera catheter in collapsed bladder. Small fat containing inguinal hernias noted. Atherosclerotic changes to the aorta and vasculature noted without aneurysm. Musculoskeletal structures demonstrate degenerative changes. Lung bases demonstrate mild basilar atelectasis. IMPRESSION: 1. Changes related to cirrhosis including severe ascites. Findings are unchanged compared to prior examination. 2. No further acute abdominopelvic pathology appreciated. <Electronically signed by Robles Wood > 02/20/21 [id number]
[2021-02-20 18:48] LABS: BASO % 0.2 % (0.0-1.0); HEMATOCRIT 36.1 % (42.0-52.0); HEMOGLOBIN 12.1 g/dl (13.5-17.5); LYMPH # 1.6 10^3/uL (1.5-5.0); LYMPH % 8.9 % (24.0-44.0); MEAN CORPUSCULAR HEMOGLOBIN 30.5 pg (27.0-33.0); MEAN CORPUSCULAR HGB CONC 33.5 g/dl (32.0-36.5); MEAN CORPUSCULAR VOLUME 90.9 fl (80.0-96.0); MONO % 5.7 % (2.0-8.0); NEUTROPHILS # 15.6 10^3/uL (1.5-8.5); NEUTROPHILS % 84.9 % (36.0-66.0); PLATELET COUNT, AUTOMATED 166 10^3/uL (150-450); RED BLOOD COUNT 3.97 10^6/uL (4.30-6.10); WHITE BLOOD COUNT 18.4 10^3/uL (4.0-10.0)
[2021-02-20] MEDS ORDERED: NS 1,000 ML IV SCH (18:50)
[2021-02-20 19:01] LABS: ALBUMIN 2.2 GM/DL (3.2-5.2); BILIRUBIN,DIRECT 0.6 MG/DL (0.0-0.2); BILIRUBIN,TOTAL 1.8 MG/DL (0.2-1.0); CALCIUM LEVEL 8.4 MG/DL (8.8-10.2); CREATININE FOR GFR 3.65 MG/DL (0.70-1.30); POTASSIUM SERUM 3.8 MEQ/L (3.5-5.1); TOTAL PROTEIN 5.2 GM/DL (6.4-8.2)
[2021-02-20] MEDS ORDERED: NS 500 ML IV ONE ×2 (19:15)
[2021-02-20] MEDS ORDERED: SUCR1TAB56 PO (19:16)
[2021-02-20] MEDS ORDERED: MIDO5TA PO (19:16)
[2021-02-20] MEDS ORDERED: LINE1TAB PO (19:16)
[2021-02-20] MEDS ORDERED: HOME MED LIST COMPLETE! XX SCH (19:20)
[2021-02-20] MEDS ORDERED: VANCOMYCIN HCL 1,500 MG in NS 250 ML IV ONE (19:55)
[2021-02-20] MEDS ORDERED: PIPERACILLIN/TAZOBACTAM SOD 3.375 GM in D5W MINI-BAG PLUS 50 ML IV ONE (19:55)
[2021-02-20] MEDS ORDERED: ACETAMINOPHEN TAB 650MG DOSE (2X325MG) PO PRN (20:00)
[2021-02-20] MEDS ORDERED: MOM 30ML SUSPENSION UDC PO PRN (20:00)
[2021-02-20] MEDS ORDERED: MAALOX 30 ML SUSP *UDC PO PRN (20:00)
--- NOTE | 2021-02-20 20:06 | HPEPDOC ---
[facility] Medical History & Physical Date of Admission Feb 20, 2021 Date of Service: Feb 20, 2021 Primary Care Physician: KVNG CAMPA D.O. Attending Physician: MARÍA ELENA SCOTT MD History and Physical TIME OF SERVICE: 905pm CHIEF COMPLAINT: decreased UOP HISTORY OF PRESENT ILLNESS: was last hospitalized from Feb 07 to Feb 17 for management of Severe Sepsis 2/2 E. faecium & ESBL klebsiella bacteremia, Vomiting, Acute blood loss anemia, Hypotension, KAILEE on CKD3 and ascites. It was felt that the primary source of bacteremia may be GI in nature but pleural fluid analysis was unrevealing; nevertheless he was discharged with instructions to take linezolid for 6 more days pending an appointment with the liver transplant clinic in [place]. With regards to the blood loss anemia EGD revealed a small AVM that was cauterized. It was suspected that the KAILEE was due to sepsis therefore his diuretics were held he was given albumin and midodrine. The patient also had paracentesis twice on Feb 09 and Feb 15. The day after he was discharged he returned with c/o urinary retention, had a faria placed and was sent home. Today he returned w c/o decreased UOP despite having the Faria placed. The Faria was flushed and exchanged; bladder scan showed >1000ml of fluid but Curly Lawton felt that the fluid was more likely ascetic fluid rather than urine bc the CT scan didnt corroborate the suspicion that the patient has urinary retention. Despite flushing and exchanging the Faria the patient still hasnt produced urine. At the time of my assessment added that his arms and legs have become weaker since he was discharged to the point that he has difficulties using his walker; his abdomen has become more distended again and his appetite has been poor. He has been having > 6 episodes of non-bloody diarrhea a day which he attributes to antibiotic use. He denies having fever or chills but has been feeling colder, tired and agrees that it is taking him some time to process information. He has also been having back pain when he stands up. He has not yet had the chance to follow up with , the Nephrology group or the liver transplant clinic in [place]. REVIEW OF SYSTEMS: 10-point review of systems negative except as listed in HPI PAST MEDICAL/ SURGICAL HISTORY: Decompensated FLOOD Cirrhosis (complicated by episodes Hepatic encephalopathy, Recurrent ascites, and Chronic Hypervolemic Hyponatremia), Recent diagnosis of E. faecium & ESBL klebsiella bacteremia, UGIB 2/2 AVMs, Pancreatic Carcinoma (s/p Whipple 2016), CKD3, chronic hypotension, GERD, Chronic HFpEF (grade 1), PE (October 2017), hx of C. Diff in Dec, diet controlled NIDDM, hx of SVT, resection of tubular adenomas from his colon, right knee surgery, Cholecystectomy FAMILY HISTORY: He denies having a family hx of liver disease. His Father had HTN, mother had DM and CAD. SOCIAL HISTORY: He is a former smoker (15 pack year habit quit about 29 yrs ago) and doesnt drink or use recreational drugs. ALLERGIES: Please see below. HOME MEDICATIONS: Please see below. PHYSICAL EXAMINATION: Vital Signs Date Time Temp Pulse Resp B/P (MAP) Pulse Ox O2 Delivery O2 Flow Rate FiO2 02/20/21 12:53 97.4 78 18 108/57 (74) 99 Room Air GENERAL APPEARANCE: slim build/ NAD HEENT: EOMI / he doesnt have scleral icterus / temporal wasting CARDIOVASCULAR: RRR/NMRG LUNGS: CTAB on RA ABDOMEN: he has well healed old post laparotomy scar at the mid abdomen / he doesnt have foxs sign or negron turners sign / the abdomen is convex, firm & distended with a positive air fluid wave / he has dressings on the right and left flank (per patient the one on the right is to prevent ascetic fluid from leaking out of his abdomen) / the abdomen is firm but he denies tenderness and doesnt grimace with palpation : faria catheter well positioned in meatus, there is no urine in the faria bag MUSCULOSKELETAL: NCAT / he has muscle wasting at the extremities INTEGUMENT: he is not jaundice, not pale and not diaphoretic NEUROLOGICAL: + asterisks / speech not dysarthric PSYCHIATRIC: A&O / able to understand and follow all commands LABORATORY DATA: IMAGING: CT abd/pelvis IMPRESSION: 1. Changes related to cirrhosis including severe ascites. Findings are unchanged compared to prior examination. 2. No further acute abdominopelvic pathology appreciated. MICROBIOLOGY: COVID 19 NEG ASSESSMENT: is a 66 yr w a hx of FLOOD Cirrhosis, HE, Recurrent ascites, Hyponatremia, UGIB 2/2 AVMs, Pancreatic Carcinoma (s/p Whipple), CKD3, hypotension, HFpEF, PE, & NIDDM who is admitted for KAILEE on CKD 3, Oliguria, Rec urrent Ascites, Recurrent HE, Decompensated FLOOD cirrhosis, Acute on Chronic hypervolemic hyponatremia, Diarrhea, Lactic acidosis & Deconditioning. PLAN: 1 KAILEE on CKD 3 He has oliguria /anuria Possibly due to dehydration from poor PO intake & diarrhea + mass effect of ascites on kidneys Plan: admit to medical floor / monitor Is and Os & daily weighs / per d/w will c/w midodrine, albumin and add Octreotide / f/u UA, PTH, Phosphorus, CK, UCr / hold lactulose 2 Recurrent Ascites He has an outpatient paracentesis scheduled on Monday Plan: Zosyn pending blood cx and paracentesis (will ask the day time team to consult for paracentesis; according to the patient he was instructed to have no more than 6L of fluids removed followed by albumin). / f/u liver US with Doppler studies to r/o portal vein thrombosis / based on his history of cirrhosis with UGIB, total ascetic fluid protein <1.5 in the setting of KAILEE he meets the criteria to be discharged with chronic abx for secondary prevention of SBP 3 Acute Hepatic Encephalopathy He has has clinical features of HE ( asterixis & a slow verbal response to questions) The trigger of this acute episode of HE is likely dehydration or infection but we also need to r/o portal vein thrombosis Plan: frequent Neurochecks (diminishing consciousness should prompt consideration of intubation because air-way protective reflexes can be lost in the advanced stages of hepatic encephalopathy) / elevate head of the bed / rifaximin while lactulose is on hold / overt hepatic encephalopathy, may be the sole presenting feature of spontaneous bacterial peritonitis (SBP) therefore we will order US of the liver w doppler studies to r/o portal vein thrombosis as factor triggering acute episode of HE / we will check ammonia once, but not not trend ammonia because the level of serum albumin doesnt consistently correlate with symptoms of HE 4 Decompensated FLOOD cirrhosis Plan: f/u LFTs & INR PTT aPTT to calculate his MELD and Child-Forbes score/ he has an appointment with the liver transplant clinic in [place] in the near future 5 Acute on chronic hypervolemic hyponatremia Plan: f/u w Nephrology 6 Diarrhea He is on abx and has a hx of C. Diff in Dec Plan: contact precaution spending G panel results 7 Lactic acidosis Likely 2/2 dehydration +/- reduced hepatic clearance of lactic acid He doesnt meet SIRS criterial Plan: f/u pancx / trend lactic acid 8 Recent diagnosis of E. faecium & ESBL klebsiella bacteremia Plan: hold linezolid / switch to Zosyn / f/u repeat blood cx 9 Sarcopenia / Deconditioning Plan: f/u pre-albumin / check phosphorus (if low can cause weakness) / will ask the day time team to consult PT & consider a hand potter consult 10 NN Anemia / recent UGIB 2/2 AVMs Plan: trend Hg 11 Chronic hypotension Plan: c/w midodrine 12 Chronic HFpEF (grade 1) Clinically euvolemic, he doesnt have dyspnea or BLE edema Plan: f/u Is and Os & daily weights / restrict salt to 2g 13 NIDDM Plan: consistent carbohydrate diet / f/u accuchecks / SSI w hypoglycemia protocol DVT px w Heparin Dispo: home after at least 2 midnights stay Home Medications Scheduled Cholecalciferol (Vitamin D3) (Vitamin D3) 1,000 Unit Tablet, 1,000 UNITS PO QPM Lactulose (Lactulose) 10 Gm/15 Ml Solution, 30 ML PO TID MORNING/DINNER/BEDTIME Linezolid (Linezolid) 600 Mg Tablet, 600 MG PO BID started 02/17/21 x 6 days Midodrine HCl (Midodrine HCl) 5 Mg Tablet, 5 MG PO TID 8,12,16 Omeprazole (Omeprazole) 20 Mg Capsule.dr, 20 MG PO DAILY Sucralfate (Sucralfate) 1 Gm Tablet, 1 GM PO ACHS Tamsulosin HCl (Flomax) 0.4 Mg Capsule, 0.4 MG PO QHS Allergies Coded Allergies: No Known Allergies (Unverified , 01/08/18) A-FIB/CHADSVASC A-FIB History Current/History of A-Fib/PAF?: No Current PO Anticoag Therapy: No MARÍA ELENA SCOTT MD Feb 20, 2021 20:06
[2021-02-20 20:43] LABS: PHOSPHORUS LEVEL 3.7 MG/DL (2.5-4.9)
[2021-02-20] MEDS ORDERED: VANCOMYCIN HCL 750 MG, VIAL MATE ADAPTER 1 EACH in NS 250 ML IV ONE ×2 (21:00→22:00)
[2021-02-20] MEDS: HumaLOG INSULIN (NovoLOG) PER UNIT SC SCH (21:00)
[2021-02-20] MEDS: SUCRALFATE 1 GM TAB PO SCH (21:00)
[2021-02-20] MEDS ORDERED: TAMSULOSIN 0.4 MG CAP PO SCH (21:00)
[2021-02-20] MEDS ORDERED: GLUCAGON INJ 1MG VIAL SC PRN (23:25)
[2021-02-20] MEDS ORDERED: DEXTROSE 50% 50 ML SYRINGE IV PRN (23:25)
[2021-02-20] MEDS ORDERED: GLUCOSE 4GM CHEW TABLET PO PRN (23:25)
[2021-02-21] VITALS (12 sets, daily range): BP systolic 84–102; BP diastolic 46–87
[2021-02-21 00:35] LABS: INR 1.28; PROTHROMBIN TIME 16.5 SECONDS (12.7-14.5)
[2021-02-21 00:36] LABS: PARTIAL THROMBOPLASTIN TIME 35.8 SECONDS (25.9-37.0)
[2021-02-21] MEDS: rifAXIMin 550 MG TAB (XIFAXAN) PO SCH ×3 (02:45→20:32)
[2021-02-21] MEDS: PIPERACILLIN/TAZOBACTAM SOD 3.375 GM in D5W MINI-BAG PLUS 50 ML IV SCH ×2 (02:46→08:44)
[2021-02-21] MEDS: OCTREOTIDE ACETATE 100MCG/ML VIAL **IV ADMINISTRATION ONLY SC SCH ×3 (02:46→18:05)
--- NOTE | 2021-02-21 04:13 | REPVR ---
PROCEDURE INFORMATION: Exam: US Abdomen Complete Exam date and time: 02/21/2021 1:22 AM Age: 66 years old Clinical indication: Abdominal pain; Acute; Additional info: Decompensated liver cirrhosis, R/O portal vein thrombosis TECHNIQUE: Imaging protocol: Real-time ultrasound of the abdomen with image documentation. COMPARISON: [facility] COMPLETE US 10/22/2020 6:51 AM FINDINGS: Liver: The liver has a nodular contour, which can be seen with cirrhosis. No liver mass is identified. Gallbladder: The gallbladder has been removed. Common bile duct: There is intrahepatic pneumobilia, which is better visualized in the CT abdomen and pelvis on 02/20/2021. The common bile duct is normal in caliber and at the level of the jkae hepatis measures 5 mm. Pancreas: The pancreas is not well visualized due to obscuration by gas in the stomach and bowel. Right kidney: The right kidney is normal in appearance and measures 12.4 cm in length. There is no renal cortical thinning. The renal cortical echogenicity is within normal limits. No renal lesion is seen. There is no hydronephrosis. No obvious stones are seen in the renal collecting system. Left kidney: The left kidney is normal in appearance and measures 11.1 cm in length. There is no renal cortical thinning. The renal cortical echogenicity is within normal limits. No renal lesion is seen. There is no hydronephrosis. No obvious stones are seen in the renal collecting system. Spleen: The spleen is unremarkable measures 12.4 cm by 4 cm x 11 cm. Aorta: Obscured by intestinal gas. Inferior vena cava: Obscured by intestinal gas. Portal venous: There is normal hepatopetal flow in the main portal vein, which is patent and normal in caliber, measuring 12 mm in diameter. Intraperitoneal space: There is a large volume of ascites. Hepatic veins: There is normal hepatofugal flow in the imaged hepatic veins, which are patent. Hepatic artery: The imaged portion of the hepatic artery is patent with a peak systolic velocity of 169 cm/s, end-diastolic velocity of 53.8 cm/s, and resistive index of 0.68, which is within normal limits. IMPRESSION: 1. No portal vein thrombosis. 2. Cirrhotic liver. 3. Large volume of ascites. 4. Pneumobilia, which is better visualized in the CT abdomen and pelvis on 02/20/2021. Electronically signed by: Rudolph Busby On 02/21/2021 04:12:32 AM
[2021-02-21] MEDS ORDERED: guaiFENesin ER 600 MG TAB PO PRN (04:30)
[2021-02-21] MEDS: SODIUM CHLORIDE 0.9% INJ 10 ML SYR IV SCH ×3 (05:48→22:29)
[2021-02-21 06:15] LABS: HEMATOCRIT 28.3 % (42.0-52.0); MEAN CORPUSCULAR HEMOGLOBIN 31.2 pg (27.0-33.0); MEAN CORPUSCULAR HGB CONC 35.7 g/dl (32.0-36.5); MEAN CORPUSCULAR VOLUME 87.3 fl (80.0-96.0); PLATELET COUNT, AUTOMATED 120 10^3/uL (150-450); RED BLOOD COUNT 3.24 10^6/uL (4.30-6.10); WHITE BLOOD COUNT 14.8 10^3/uL (4.0-10.0)
[2021-02-21 06:17] LABS: HEMOGLOBIN 10.1 g/dl (13.5-17.5)
[2021-02-21 06:29] LABS: INR 1.41; PROTHROMBIN TIME 17.7 SECONDS (12.7-14.5)
[2021-02-21 06:42] LABS: ALBUMIN 2.1 GM/DL (3.2-5.2); BILIRUBIN,TOTAL 1.9 MG/DL (0.2-1.0); CALCIUM LEVEL 7.6 MG/DL (8.8-10.2); CREATININE FOR GFR 3.84 MG/DL (0.70-1.30); POTASSIUM SERUM 3.6 MEQ/L (3.5-5.1); TOTAL PROTEIN 4.5 GM/DL (6.4-8.2)
[2021-02-21] MEDS ORDERED: MIDODRINE 5 MG TAB PO SCH (08:00)
--- NOTE | 2021-02-21 08:42 | REP ---
INDICATION: productive cough COMPARISON: 02/07/2021 TECHNIQUE: Portable AP view of the chest FINDINGS: The mediastinum and cardiac silhouette are stable and within normal limits for portable technique. The lung lin are clear without acute consolidation, effusion, or pneumothorax. Skeletal structures are intact. IMPRESSION: No acute cardiopulmonary process appreciated. <Electronically signed by Robles Wood > 02/21/21 [id number]
[2021-02-21] MEDS: OMEPRAZOLE 20 MG CAP PO SCH (08:43)
[2021-02-21] MEDS: SUCRALFATE 1 GM TAB PO SCH ×5 (08:43→20:33)
[2021-02-21] MEDS: HEPARIN SOD (PORCINE) 5000UNITS/ML 1ML VIAL/SYRINGE SQ SCH ×2 (08:45→20:33)
[2021-02-21] MEDS: HumaLOG INSULIN (NovoLOG) PER UNIT SC SCH ×4 (08:45→21:00)
[2021-02-21] MEDS ORDERED: LINEZOLID 600MG TABLET (ZYVOX) PO SCH (09:00)
[2021-02-21] MEDS ORDERED: PIPERACILLIN/TAZOBACTAM SOD 2.25 GM in D5W MINI-BAG PLUS 50 ML IV SCH (11:00)
[2021-02-21] MEDS: MIDODRINE 5 MG TAB PO SCH ×2 (13:35→18:05)
[2021-02-21] MEDS: SODIUM CHLORIDE 0.9% INJ 10 ML SYR IV PRN ×2 (16:15→19:22)
[2021-02-21 17:05] LABS: APPEARANCE, URINE CLOUDY (CLEAR); BACTERIA, URINE AUTO NEGATIVE (NEGATIVE); BILIRUBIN, URINE AUTO NEGATIVE (NEGATIVE); BLOOD, URINE BLOOD 3+ (NEGATIVE); COLOR, URINE AMBER (YELLOW); GLUCOSE, URINE (UA) AUTO NEGATIVE (NEGATIVE); KETONE, URINE AUTO NEGATIVE (NEGATIVE); LEUKOCYTE ESTERASE, URINE AUTO 2+ (NEGATIVE); MUCUS, URINE SMALL (NEGATIVE); NITRITE, URINE AUTO NEGATIVE (NEGATIVE); PROTEIN, URINE AUTO 2+ mg/dL (NEGATIVE); RBC, URINE AUTO TNTC /HPF (0-3); SPECIFIC GRAVITY URINE AUTO 1.016 (1.002-1.035); SQUAMOUS EPITHELIAL CELL UR AU 0 /HPF (0-6); UROBILINOGEN, URINE AUTO 0.2 mg/dL (0.0-2.0); WBC, URINE AUTO 22 /HPF (0-3)
[2021-02-21 17:21] LABS: CHLORIDE,RANDOM URINE 16 MEQ/L; SODIUM,RANDOM URINE 13 MEQ/L
[2021-02-21] MEDS: PIPERACILLIN/TAZOBACTAM SOD 2.25 GM in D5W MINI-BAG PLUS 50 ML IV SCH (18:05)
[2021-02-22] VITALS (8 sets, daily range): BP systolic 97–109; BP diastolic 58–64
[2021-02-22] MEDS: PIPERACILLIN/TAZOBACTAM SOD 2.25 GM in D5W MINI-BAG PLUS 50 ML IV SCH ×3 (00:43→17:14)
[2021-02-22] MEDS: OCTREOTIDE ACETATE 100MCG/ML VIAL **IV ADMINISTRATION ONLY SC SCH ×3 (00:44→17:15)
--- NOTE | 2021-02-22 05:17 | CR ---
CONSULTATION DATE: 02/21/2021 REQUESTING PHYSICIAN: Manasa Aguilera MD CONSULTING PHYSICIAN: Lavinia Lester MD REASON FOR CONSULTATION: Management of acute renal failure. CHIEF COMPLAINT: The patient presented to the hospital yesterday because of decreased urine output. HISTORY OF PRESENT ILLNESS: Massimo Glez is a 66-year-old male with past medical history of chronic kidney disease, stage III, baseline creatinine of 1.1 as of February 17, 2021, well known to nephrology service from multiple previous hospitalizations, history of FLOOD cirrhosis with recurrent ascites, recent admission to the hospital in January 2021 with enterococcus faecium and Klebsiella bacteremia, possible intraabdominal source, status post IV antibiotics. He developed acute renal failure secondary to shock at this time. He got IV antibiotics. His renal function had improved to creatinine of 1.1. He was discharged home. However, he presented back to the hospital with decreased urine output, worsening abdominal distension. Initially, decreased urine output was attributed to urinary retention. However, despite Rivera catheter placement, the patient remained oliguric. CAT scan of the abdomen and pelvis done in the emergency room showed massive ascites. He was also complaining of loose stools. He was admitted under the hospitalist service with acute renal failure and decompensated FLOOD cirrhosis with ascites. Nephrology service was called for further help in the management of this patient. I saw and evaluated the patient today morning at the bedside. He reports persistent abdominal distension and weakness and his renal function continues to deteriorate. PAST MEDICAL HISTORY: 1. FLOOD cirrhosis. 2. History of chronic kidney disease, stage III, baseline creatinine of around 1.1. 3. Recent history of sepsis secondary to bacteremia. 4. History of hepatic encephalopathy. 5. Chronic hyponatremia. 6. Upper gastrointestinal bleed secondary to AVMs. 7. History of pancreatic carcinoma, status post Whipple procedure in 2012. 8. Chronic hypotension. 9. Heart failure with preserved ejection fraction with grade 1 diastolic dysfunction. 10.History of pulmonary embolus (PE) in 2018. 11.Clostridium difficile in December 2020. 12.Diet controlled non-Insulin dependent diabetes. 13.Right knee surgery. 14.Cholecystectomy. SURGICAL HISTORY: Status post cholecystectomy, status post esophagogastroduodenoscopy (EGD), status post right knee surgery, history of resection of tubular adenopathy from the colon. ALLERGIES: No known drug allergies. FAMILY HISTORY: No significant family history of end-stage renal disease requiring hemodialysis. SOCIAL HISTORY: The patient is an ex-smoker. He denies any illicit drug abuse or alcohol abuse REVIEW OF SYSTEMS: Constitutional: He reports feeling weak and tired. Eyes: Denies any blurry vision or double vision. ENT: Denies any dysphagia, odynophagia. Cardiovascular: Denies any chest pain or palpitations. Respiratory: Reports mild shortness of breath. Gastrointestinal (GI): Reports abdominal distension. Genitourinary (): Reports decreased urine output. Musculoskeletal: Reports muscle weakness. Skin: Denies any rashes or ulcers. Hematological/oncological: Denies any easy bleeding or bruising. All other review of systems is negative. PHYSICAL EXAMINATION: Vital signs: Temperature is 98.1 degrees Fahrenheit, blood pressure 86/57, pulse is 73, respiratory rate of 14, saturating 96% on room air. Head and neck examination: Extraocular muscles are intact. Pupils equally round and reactive to light. Mucous membranes are moist. Neck is supple. Mildly elevated jugular venous distention (JVD). Cardiovascular: S1, S2 with edema of the bilateral lower extremities, which is 3+. Starting from ankle all the way up to this thighs. Respiratory: Decreased breath sounds bilaterally at the bases. Abdomen: Grossly distended with a tense amount of ascites. Genitourinary: Indwelling Rivera catheter was noted. Musculoskeletal: Significant edema of the lower extremities as mentioned above. SUMATRA OPENER: No focal deficit. No asterixis is noted. LABORATORY REVIEW: Complete blood count (CBC) showed a WBC of 18.4 on arrival, 14.8 now, hemoglobin 10.1, platelets 120, INR is 1.4. Urinalysis done showed it was cloudy, 2+ protein, 3+ blood. Random creatinine is 209. Sodium is 13, chloride is 16. Basic metabolic panel (BMP) showed sodium 128, potassium 3.6, chloride 98, bicarbonate 17, BUN 22, creatinine is 3.8, lactic acid was 2.1 on arrival, 1.6 now. Calcium is 7.6, total bilirubin 1.9, AST 48, ALT 35, alkaline phosphatase is 168. Ammonia level is 36, albumin is 2.1. MICROBIOLOGY: Blood cultures are negative so far. Gastrointestinal (GI) panel is negative. IMAGING DATA: CAT scan of the abdomen and pelvis was done last night, which showed cirrhosis with severe ascites. Findings are unchanged and there was Rivera catheter in the collapsed bladder. CURRENT INPATIENT MEDICATIONS: The patient's medications were all reviewed by myself. He has been started on Zosyn 2.25 gm IV q 8 hours, heparin subcutaneous every 12 hours, insulin Lispro sliding scale. He was on Zyvox 600 mg by mouth twice a day, which has been stopped now. The patient was on midodrine 5 mg by mouth three times a day, I have increased the midodrine dose to 10 mg three times a day. He has been started octreotide 100 mcg subcutaneous every 8 hours, omeprazole 20 mg by mouth daily, rifaximin 550 mg by mouth twice a day, Carafate 1 gm by mouth with meals. Flomax has been stopped and the patient is getting albumin 25% IV infusions. ASSESSMENT AND PLAN: 1. Acute oliguric renal failure. The patient's renal electrolytes show that sodium and chloride are low, which is a sign of prerenal disease. However, the patient is volume overloaded. In my opinion, the patient has very tense ascites. His ascitic fluid needs to be removed, so that his kidneys can be perfused and I am hopefully that after his tap, his renal function should start improving. I would keep his mean arterial pressure above 70 that is why midodrine has been increased. In the meantime, we would empirically continue to treat him as hepatorenal and continue midodrine, octreotide subcutaneous and albumin infusions. 2. Leukocytosis and recent bacteremia. The patient came in with leukocytosis and acute renal failure. He was recently treated for bacteremia and discharged from the hospital on February 17. He has been empirically started on IV Zosyn. Cultures have been sent. 3. Decompensated FLOOD cirrhosis with tense ascites. The patient needs to get paracentesis done tomorrow morning. 4. Hyponatremia. The patient has hypovolemic hyponatremia. Sodium level should improve with improvement in the volume status. 5. Lactic acidosis. It is secondary to combination of tense ascites, hypotension and leukocytosis and possible source of infection. He got IV fluids and his lactic acid is better. Avoid further use of IV fluid hydration because it is going to make his ascites worse. 6. Diarrhea. The patient is on IV antibiotics. He has a history of Clostridium difficile. Recent gastrointestinal (GI) panel is negative. 7. Heart failure with preserved ejection fraction, grade 1 diastolic dysfunction. I cannot give him diuretics at this time because the patient is in acute renal failure. Once his ascites his tapped and he starts making urine, he will be started diuretic regimen. Thank you for involving me in the care of this patient. I shall be happy to follow the patient along with your tomorrow morning. [id number]
[2021-02-22] MEDS: SODIUM CHLORIDE 0.9% INJ 10 ML SYR IV SCH ×3 (06:13→22:05)
[2021-02-22] MEDS: HumaLOG INSULIN (NovoLOG) PER UNIT SC SCH ×4 (07:30→21:00)
[2021-02-22] MEDS: MIDODRINE 5 MG TAB PO SCH ×3 (08:58→17:14)
[2021-02-22] MEDS: rifAXIMin 550 MG TAB (XIFAXAN) PO SCH ×2 (08:58→21:39)
[2021-02-22] MEDS: SUCRALFATE 1 GM TAB PO SCH ×4 (08:59→21:40)
[2021-02-22] MEDS: HEPARIN SOD (PORCINE) 5000UNITS/ML 1ML VIAL/SYRINGE SQ SCH ×2 (08:59→21:40)
[2021-02-22] MEDS: OMEPRAZOLE 20 MG CAP PO SCH (08:59)
[2021-02-22 11:38] LABS: BASO % 0.2 % (0.0-1.0); HEMATOCRIT 26.4 % (42.0-52.0); HEMOGLOBIN 9.1 g/dl (13.5-17.5); LYMPH # 0.6 10^3/uL (1.5-5.0); LYMPH % 6.1 % (24.0-44.0); MEAN CORPUSCULAR HEMOGLOBIN 31.1 pg (27.0-33.0); MEAN CORPUSCULAR HGB CONC 34.5 g/dl (32.0-36.5); MEAN CORPUSCULAR VOLUME 90.1 fl (80.0-96.0); MONO # 0.5 10^3/uL (0.0-0.8); MONO % 4.5 % (2.0-8.0); NEUTROPHILS # 9.2 10^3/uL (1.5-8.5); NEUTROPHILS % 88.9 % (36.0-66.0); PLATELET COUNT, AUTOMATED 111 10^3/uL (150-450); RED BLOOD COUNT 2.93 10^6/uL (4.30-6.10); WHITE BLOOD COUNT 10.4 10^3/uL (4.0-10.0)
--- NOTE | 2021-02-22 11:47 | IPNPDOC ---
Subjective Date Seen The patient was seen on 02/21/21. Subjective Chief Complaint/HPI Patient awake and alert this morning sitting up in bed having breakfast in no acute distress. Does not complain of any abdominal pain or distention or discomfort. He has chronic hypotension and here most of the numbers are 90/50. No urine output. Spoke with Karen at [phone] and updated her regarding the patient. Objective Physical Examination General Exam: Positive: Alert, Cooperative, No Acute Distress, Other (Sitting up in bed and having breakfast) ENT Exam: Positive: Atraumatic, Mucous membr. moist/pink, Pharynx Normal Neck Exam: Positive: Supple; Negative: JVD, thyromegaly Chest Exam: Positive: Clear to auscultation, Normal air movement Heart Exam: Positive: Rate Normal, Regular Rhythm, Normal S1, Normal S2; Negative: Murmurs, Rubs Abdomen Exam: Positive: Normal bowel sounds, Soft, Other (Large volume of ascites present, femoral line present at right groin); Negative: Tenderness Extremity Exam: Positive: Edema (4+ edema in thighs and groin); Negative: Clubbing, Cyanosis Psych Exam: Positive: Oriented x 3 Assessment /Plan Assessment This is a 66-year-old male with past medical history of 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 faecium & ESBL klebsiella bacteremia, UGIB 2/2 AVMs, Pancreatic Carcinoma (s/p Whipple 2016), CKD3, chronic hypotension, GERD, Chronic HFpEF (grade 1), PE (October 2017), hx of C. Diff in Dec, diet controlled NIDDM (A1C 7.05.2%), hx of SVT, recently hospitalized from Feb 07 to Feb 17 for management of Severe Sepsis 2/2 E. faecium & ESBL klebsiella bacteremia, Acute blood loss anemia, Hypotension, KAILEE on CKD3 and ascites. It was felt that the primary source of bacteremia may be GI in nature. He was discharged with linezolid. With regards to the blood loss anemia EGD revealed a small AVM that was cauterized. It was suspected that the KAILEE was due to sepsis therefore his diuretics were held he was given albumin and midodrine. The patient also had paracentesis twice on Feb 09 and Feb 15. On 02/16/2021 he returned with c/o urinary retention, had a faria placed and was sent home. He returned on 02/20/2021 w c/o decreased UOP despite having the Faria placed. The Faria was flushed and exchanged with no urine output. He also complained of loose bowel movements several times a day. He was found to have KAILEE with a creatinine of 3.5 KAILEE patient did have 1 days of diarrhea as per . this may be pre renal from poor intravascular volume. Patient got NS without any result. Patient may be having hepatorenal syndrome. Urine studies have been ordered Patient's volume status is being optimized Started on midodrine and albumin and octreotide Decompensated Avalos cirrhosis of liver with ascites, hepatic encephalopathy, thrombocytopenia, hyponatremia Patient again has significant amount of ascites. Outpatient paracentesis is scheduled on Monday. Does not appear to be too uncomfortable at present. Abdomen distended but not tense. Will arrange for peritoneal tap with IR on 02/22/2021 Continue rifaximin, started on Zosyn. Lactulose is on hold because of too many bowel movements Continue midodrine and albumin liver US with Doppler studies to r/o portal vein thrombosis Diarrhea He is on abx and has a hx of C. Diff in Dec GI panel pending Lactic acidosis Likely 2/2 dehydration +/- reduced hepatic clearance of lactic acid He doesnt meet SIRS criterial Plan: f/u pancx / trend lactic acid Recurrent bacteremia blood cultures again been sent. Recent diagnosis of E. faecium & ESBL klebsiella bacteremia Started on Zosyn and vancomycin till blood cultures are back . if negative will dc antibiotics. Sarcopenia / Deconditioning Due to chronic medical diseases PT OT Chronic anemia recent UGIB 2/2 AVMs Chronic hypotension Increase dose of midodrine Chronic HFpEF (grade 1) Clinically euvolemic, he doesnt have dyspnea or BLE edema NIDDM (A1C 7.05.2%) consistent carbohydrate diet / f/u accuchecks / SSI w hypoglycemia protocol H/o Pancreatic cancer s/p wipples procedure. Plan/VTE VTE Prophylaxis Ordered?: Yes VS, I&O, 24H, Fishbone Vital Signs/I&O Vital Signs Date Time Temp Pulse Resp B/P (MAP) Pulse Ox O2 Delivery O2 Flow Rate FiO2 02/21/21 08:15 97.8 79 16 84/46 98 Room Air I&O- Last 24 Hours up to 6 AM 02/21/21 06:00 Intake Total 100.0 ml Output Total 0 ml Balance 100.0 ml Laboratory Data 24H LABS Laboratory Tests 2 02/20/21 16:56: Immature Granulocyte % (Auto) 0.3, Neutrophils (%) (Auto) 84.9H, Lymphocytes (%) (Auto) 8.9L, Monocytes (%) (Auto) 5.7, Eosinophils (%) (Auto) 0.0, Basophils (%) (Auto) 0.2, Neutrophils # (Auto) 15.6H, Lymphocytes # (Auto) 1.6, Monocytes # (Auto) 1.0H, Eosinophils # (Auto) 0.0, Basophils # (Auto) 0.0, Nucleated Red Blood Cells % (auto) 0.0, Anion Gap 12, Glomerular Filtration Rate 18.0L, Calcium Level 8.4L, Total Bilirubin 1.8H, Direct Bilirubin 0.6H, Aspartate Amino Transf (AST/SGOT) 61H, Alanine Aminotransferase (ALT/SGPT) 43, Alkaline Phosphatase 206H, Total Protein 5.2L, Albumin 2.2L, Albumin/Globulin Ratio 0.7 02/20/21 20:03: Phosphorus Level 3.7 02/20/21 20:04: Lactic Acid Level 2.5*H 02/20/21 21:03: Coronavirus (COVID-19)(PCR) NEGATIVE 02/21/21 00:12: Prothrombin Time 16.5H, Prothromb Time International Ratio 1.28, Activated Partial Thromboplast Time 35.8, Lactic Acid Level 2.1*H, Phosphorus Level 4.0, Ammonia 35H, Total Creatine Kinase 35L 02/21/21 02:13: Bedside Glucose (Misc Panel) 120H 02/21/21 05:55: Prothrombin Time 17.7H, Prothromb Time International Ratio 1.41, Nucleated Red Blood Cells % (auto) 0.0, Anion Gap 13, Glomerular Filtration Rate 17.0L, Lactic Acid Followup at 4 Hours 1.6, Calcium Level 7.6L, Total Bilirubin 1.9H, Aspartate Amino Transf (AST/SGOT) 48H, Alanine Aminotransferase (ALT/SGPT) 35, Alkaline Phosphatase 168H, Total Protein 4.5L, Albumin 2.1L, Albumin/Globulin Ratio 0.9 02/21/21 11:48: Bedside Glucose (Misc Panel) 146H CBC/BMP Laboratory Tests 02/20/21 16:56 02/21/21 05:55 Microbiology Microbiology 02/21/21 Gram Stain, Received Pending 02/21/21 Sputum Culture, Received Pending 02/21/21 Gastrointestinal Tract Panel (PCR) - Final, Complete 02/20/21 Blood Culture, Received Pending 02/20/21 Blood Culture, Received Pending Coreen Clarke MD Feb 21, 2021 13:00
[2021-02-22 11:59] LABS: ALBUMIN 2.3 GM/DL (3.2-5.2); BILIRUBIN,TOTAL 1.6 MG/DL (0.2-1.0); CALCIUM LEVEL 7.5 MG/DL (8.8-10.2); CREATININE FOR GFR 4.81 MG/DL (0.70-1.30); GLOMERULAR FILTRATION RATE 13.1 (>49); POTASSIUM SERUM 3.6 MEQ/L (3.5-5.1); TOTAL PROTEIN 4.5 GM/DL (6.4-8.2)
[2021-02-22 12:07] LABS: PTH INTACT 31.6 PG/ML (18.5-88.0)
--- NOTE | 2021-02-22 13:19 | IPNPDOC ---
Subjective Date Seen The patient was seen on 02/22/21. Subjective Chief Complaint/HPI Has massive ascites going down for paracentesis today. Patient has a massive pedal edema extending up to the groin. Very poor IV access will get a PICC line for him. Patient is awake alert oriented x3 laying down in bed flat with no acute distress. He reports that he had some breakfast. He has minimal urine output Objective Physical Examination General Exam: Positive: Alert, Cooperative, No Acute Distress, Other (Sitting up in bed and having breakfast) ENT Exam: Positive: Atraumatic, Mucous membr. moist/pink, Pharynx Normal Neck Exam: Positive: Supple; Negative: JVD, thyromegaly Chest Exam: Positive: Clear to auscultation, Normal air movement Heart Exam: Positive: Rate Normal, Regular Rhythm, Normal S1, Normal S2; Negative: Murmurs, Rubs Abdomen Exam: Positive: Normal bowel sounds, Soft, Other (Large volume of ascites present, femoral line present at right groin); Negative: Tenderness Extremity Exam: Positive: Edema (4+ edema in thighs and groin); Negative: Clubbing, Cyanosis Psych Exam: Positive: Oriented x 3 Assessment /Plan Assessment This is a 66-year-old male with past medical history of 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 faecium & ESBL klebsiella bacteremia, UGIB 2/2 AVMs, Pancreatic Carcinoma (s/p Whipple 2016), CKD3, chronic hypotension, GERD, Chronic HFpEF (grade 1), PE (October 2017), hx of C. Diff in Dec, diet controlled NIDDM (A1C 7.05.2%), hx of SVT, recently hospitalized from Feb 07 to Feb 17 for management of Severe Sepsis 2/2 E. faecium & ESBL klebsiella bacteremia, Acute blood loss anemia, Hypotension, KAILEE on CKD3 and ascites. It was felt that the primary source of bacteremia may be GI in nature. He was discharged with linezolid. With regards to the blood loss anemia EGD revealed a small AVM that was cauterized. It was suspected that the KAILEE was due to sepsis therefore his diuretics were held he was given albumin and midodrine. The patient also had paracentesis twice on Feb 09 and Feb 15. On 02/16/2021 he returned with c/o urinary retention, had a faria placed and was sent home. He returned on 02/20/2021 w c/o decreased UOP despite having the Faria placed. The Faria was flushed and exchanged with no urine output. He also complained of loose bowel movements several times a day. He was found to have KAILEE with a creatinine of 3.5 KAILEE patient did have 1 day of diarrhea as per . this may be pre renal from poor intravascular volume. Patient got NS without any result. Patient may be having hepatorenal syndrome. Urine studies have been ordered Patient's volume status is being optimized Started on midodrine and albumin and octreotide Decompensated Avalos cirrhosis of liver with ascites, hepatic encephalopathy, thrombocytopenia, hyponatremia Patient again has significant amount of ascites. Outpatient paracentesis is scheduled on Monday. Does not appear to be too uncomfortable at present. Abdomen distended but not tense. Paracentesis 02/22/2021 Continue rifaximin, started on Zosyn. Lactulose is on hold because of too many bowel movements Continue midodrine and albumin liver US with Doppler studies to r/o portal vein thrombosis Diarrhea He is on abx and has a hx of C. Diff in Dec GI panel pending Lactic acidosis Likely 2/2 dehydration +/- reduced hepatic clearance of lactic acid Recurrent bacteremia blood cultures again been sent. Recent diagnosis of E. faecium & ESBL klebsiella bacteremia treated with zosyn and vancomycin and discharged with linezolid till 02/23/21. However patient got admitted on 02/20/21. he got loading dose of vancomycin on 02/20/21 1.5 gm Continued on Zosyn only here Sarcopenia / Deconditioning Due to chronic medical diseases PT OT Chronic anemia recent UGIB 2/2 AVMs Chronic hypotension Increase dose of midodrine Chronic HFpEF (grade 1) Clinically euvolemic, he doesnt have dyspnea or BLE edema NIDDM (A1C 7.05.2%) consistent carbohydrate diet / f/u accuchecks / SSI w hypoglycemia protocol H/o Pancreatic cancer s/p wipples procedure. Plan/VTE VTE Prophylaxis Ordered?: Yes VS, I&O, 24H, Fishbone Vital Signs/I&O Vital Signs Date Time Temp Pulse Resp B/P (MAP) Pulse Ox O2 Delivery O2 Flow Rate FiO2 10/11/21 11:42 98.0 60 18 97/60 96 Room Air I&O- Last 24 Hours up to 6 AM 02/22/21 05:59 Intake Total 670.0 ml Output Total 0 ml Balance 670.0 ml Laboratory Data 24H LABS Laboratory Tests 2 02/21/21 16:27: Urine Color DAO, Urine Appearance CLOUDYH, Urine pH 5.0, Urine Specific Alexander 1.016, Urine Protein 2+H, Urine Glucose (Auto)(UA) NEGATIVE, Urine Ketones (Auto) NEGATIVE, Urine Blood 3+H, Urine Nitrite NEGATIVE, Urine Bilirubin NEGATIVE, Urine Urobilinogen 0.2, Urine Leukocyte Esterase (Auto) 2+H, Urine WBC (Auto) 22H, Urine RBC (Auto) TNTCH, Urine Hyaline Casts (Auto) 0, Urine Bacteria (Auto) NEGATIVE, Urine Squamous Epithelial Cells 0, Urine Mucus (Auto) SMALL, Urine Yeast-Like Cells (Auto) MODERATEH, Urine Sperm (Auto) , Urine Random Creatinine 209.0, Urine Random Sodium 13, Urine Random Chloride 16 02/21/21 16:30: Methicillin-Resist S.aureus DNA PCR NOT DETECTED 02/21/21 16:42: Bedside Glucose (Misc Panel) 162H 02/21/21 21:15: Bedside Glucose (Misc Panel) 133H 02/22/21 06:02: Bedside Glucose (Misc Panel) 112 02/22/21 11:19: Immature Granulocyte % (Auto) 0.3, Neutrophils (%) (Auto) 88.9H, Lymphocytes (%) (Auto) 6.1L, Monocytes (%) (Auto) 4.5, Eosinophils (%) (Auto) 0.0, Basophils (%) (Auto) 0.2, Neutrophils # (Auto) 9.2H, Lymphocytes # (Auto) 0.6L, Monocytes # (Auto) 0.5, Eosinophils # (Auto) 0.0, Basophils # (Auto) 0.0, Nucleated Red Blood Cells % (auto) 0.0, Anion Gap 11, Glomerular Filtration Rate 13.1L, Calcium Level 7.5L, Total Bilirubin 1.6H, Aspartate Amino Transf (AST/SGOT) 39H, Alanine Aminotransferase (ALT/SGPT) 28, Alkaline Phosphatase 135H, Total Protein 4.5L, Albumin 2.3L, Albumin/Globulin Ratio 1.0 02/22/21 11:48: Bedside Glucose (Misc Panel) 158H CBC/BMP Laboratory Tests 02/22/21 11:19 Microbiology Microbiology 02/21/21 Gram Stain - Final, Resulted 02/21/21 Sputum Culture, Resulted Pending 02/21/21 Gastrointestinal Tract Panel (PCR) - Final, Complete 02/20/21 Blood Culture - Preliminary, Resulted No growth after 24 hours . All specim... 02/20/21 Blood Culture - Preliminary, Resulted No growth after 24 hours . All specim... Coreen Clarke MD Feb 22, 2021 13:19
[2021-02-22 16:43] LABS: APPEARANCE, BODY FLUID HAZY (CLEAR); ASCITES FL COLOR YELLOW (COLORLESS); SOURCE, BODY FLUID ASCITES
--- NOTE | 2021-02-22 18:09 | IPNPDOC ---
Text Note Date of Service The patient was seen on 02/22/21. NOTE Spoke with communications engineer DIRECTOR OF INSTITUTIONAL RESEARCH mayi at the [facility] and she discussed the case with Dr Duff the senior [employer] consultant communications engineer and at this time he is not a candidate for transfer. His MELD is only 27 and he had a significant cancer h/o within the past 5 years. Also they think his issue now is mainly renal driven and his liver synthetic function is at baseline. VS,Fishbone, I+O VS, Fishbone, I+O Laboratory Tests 02/22/21 11:19 Vital Signs Date Time Temp Pulse Resp B/P (MAP) Pulse Ox O2 Delivery O2 Flow Rate FiO2 02/22/21 14:45 63 18 100 Room Air 02/22/21 13:35 98.7 02/22/21 13:35 109/63 I&O- Last 24 Hours up to 6 AM 02/22/21 06:00 Intake Total 670.0 ml Output Total 0 ml Balance 670.0 ml Coreen Clarke MD Feb 22, 2021 18:09
--- NOTE | 2021-02-22 21:28 | IPNPDOC ---
Subjective CC/HPI The patient is a 66-year-old male admitted with a reason for visit of Venancio, Ascites. Events since last encounter Pt seen at bedside in AM. He has massive ascites and significant leg edema. Ascitic tap to be done in afternoon. He remains oliguria and there are no signs of renal improvement. General: Reports: Fatigue, Malaise; Denies: Chills, Night Sweats Constitutional: Reports: Malaise; Denies: Chills, Fever Eyes: Denies: Pain, Vision change ENT: Denies: Head Aches, Ear Pain, Dysphagia Skin: Denies: Rash, Lesions Pulmonary: Reports: Dyspnea; Denies: Cough Cardiovascular: Reports: Orthopnea; Denies: Chest Pain, Palpitations Gastrointestinal: Reports: Other Symptoms (Tense ascites); Denies: Nausea, Vomiting Genitourinary: Reports: Other Symptoms (Rivera with oliguria); Denies: Dysuria Hematologic: Denies: Bruising, Bleeding Excessively Musculoskeletal: Denies: Neck Pain, Back Pain, Joint Pain Neurological: Reports: Weakness; Denies: Numbness Psych: Reports: Depression Objective Physical Examination General Exam: Alert, Mild Distress (Mild distress due to ascites) EYE EXAM: PERRLA, EOMI, Sclera icteric ENT EXAM: Atraumatic, Mucous membr. moist/pink Neck Exam: Supple, JVD Chest Exam: Clear to auscultation, Other (Decreased BS at bases.) Heart Exam: Rate Normal, Normal S1, Normal S2; No: Murmurs, Rubs ABDOMEN EXAM: Normal bowel sounds, Other (LArge volume ascites noted) Male Exam: No: Normal Genital Exam (Rivera catheter with small amount of dark urine in bag.) Extremity Exam: Clubbing, Edema (3+ edema from feet all the way to thighs) Skin Exam: Nl turgor and temperature Neuro Exam: Normal Speech, Strength at 5/5 X4 ext Psych Exam: Mental status NL, Mood NL, Oriented x 3 Vital Signs/I&O Vital Signs Date Time Temp Pulse Resp B/P (MAP) Pulse Ox O2 Delivery O2 Flow Rate FiO2 02/22/21 19:21 98.0 58 18 103/62 97 Room Air I&O- Last 24 Hours up to 6 AM 02/22/21 06:00 Intake Total 670.0 ml Output Total 0 ml Balance 670.0 ml Laboratory Data Labs 24H Laboratory Tests 2 10/11/21 06:02: Bedside Glucose (Misc Panel) 112 02/22/21 11:19: Immature Granulocyte % (Auto) 0.3, Neutrophils (%) (Auto) 88.9H, Lymphocytes (%) (Auto) 6.1L, Monocytes (%) (Auto) 4.5, Eosinophils (%) (Auto) 0.0, Basophils (%) (Auto) 0.2, Neutrophils # (Auto) 9.2H, Lymphocytes # (Auto) 0.6L, Monocytes # (Auto) 0.5, Eosinophils # (Auto) 0.0, Basophils # (Auto) 0.0, Nucleated Red Blood Cells % (auto) 0.0, Anion Gap 11, Glomerular Filtration Rate 13.1L, Calcium Level 7.5L, Total Bilirubin 1.6H, Aspartate Amino Transf (AST/SGOT) 39H, Alanine Aminotransferase (ALT/SGPT) 28, Alkaline Phosphatase 135H, Total Protein 4.5L, Albumin 2.3L, Albumin/Globulin Ratio 1.0 02/22/21 11:48: Bedside Glucose (Misc Panel) 158H 02/22/21 14:15: Body Fluid Source ASCITES, Body Fluid Color YELLOW, Body Fluid Appearance HAZY, Body Fluid WBC (Auto) 49H, Body Fluid RBC (Auto) 2, Body Fluid Mononuclear Cells % Auto 91.9H, Fluid Polymorphonuclear Cell % Auto 8.1H 02/22/21 16:35: Bedside Glucose (Misc Panel) 112 02/22/21 20:53: Bedside Glucose (Misc Panel) 138H CBC/BMP Laboratory Tests 02/22/21 11:19 FSBS Laboratory Tests Test 02/22/21 06:02 02/22/21 11:48 02/22/21 16:35 02/22/21 20:53 Range/Units Bedside Glucose (Misc Panel) 112 158 112 138 80-115 MG/DL Current Medications Current Medications Medications (Trade) Dose Ordered Sig/Wallace Route PRN Reason Start Time Stop Time Status Last Admin Dose Admin Acetaminophen (Tylenol Tab) 650 mg Q4H PRN PO MILD PAIN or TEMP > 101 02/20/21 20:00 02/20/21 22:37 DC Al Hydrox/Mg Hydrox/Simethicone (Mylanta) 30 ml DAILY PRN PO DYSPEPSIA 02/20/21 20:00 02/20/21 22:37 DC Dextrose (Dextrose 50%) 25 ml ASDIRECTED PRN IV SEE LABEL COMMENTS 02/20/21 23:25 Glucagon (Glucagon) 1 mg ASDIRECTED PRN SC SEE LABEL COMMENTS 02/20/21 23:25 Glucose (Glucose) 16 GM ASDIRECTED PRN PO SEE LABEL COMMENTS 02/20/21 23:25 Guaifenesin (Mucinex Tab Er) 600 mg BIDP PRN PO cough 02/21/21 04:30 Heparin Sodium (Heparin Lock Flush 10units/ml) 10 units ASDIRECTED PRN IV SEE LABEL COMMENTS 02/21/21 03:05 02/21/21 19:22 Heparin Sodium (Heparin Lock Flush 10units/ml) 10 units HLF IV 02/21/21 06:00 02/22/21 06:13 Heparin Sodium (Porcine) (Heparin) 5,000 units Q12H SQ 02/21/21 09:00 02/22/21 08:59 Home Med (Home Med List Complete!) ASDIRECTED XX 02/20/21 19:20 02/20/21 19:23 DC Insulin Human Lispro (HumaLOG INSULIN) See Protocol Table AC SC 02/21/21 07:30 02/21/21 13:36 Insulin Human Lispro (HumaLOG INSULIN) See Protocol Table QHS SC 02/20/21 21:00 Linezolid (Zyvox) 600 mg BID PO 02/21/21 09:00 02/20/21 23:53 DC Magnesium Hydroxide (Milk Of Magnesia) 30 ml DAILY PRN PO CONSTIPATION 02/20/21 20:00 02/20/21 23:22 DC Midodrine (Proamatine) 5 mg TID@0800,1200,1600 PO 02/21/21 08:00 02/21/21 12:04 DC 02/21/21 08:43 Midodrine (Proamatine) 10 mg TID@0800,1200,1600 PO 02/21/21 12:00 02/22/21 17:14 Octreotide Acetate (SandoSTATIN) 100 mcg Q8H SC 02/21/21 00:00 02/22/21 17:15 Omeprazole (PriLOSEC) 20 mg DAILY PO 02/21/21 09:00 02/22/21 08:59 Piperacillin Sod/ Tazobactam Sod 2.25 gm/Dextrose 50 ml @ 100 mls/hr Q8H IV 02/21/21 11:00 02/21/21 11:43 DC Piperacillin Sod/ Tazobactam Sod 2.25 gm/Dextrose 50 ml @ 100 mls/hr Q8H IV 02/21/21 17:00 02/22/21 17:14 Piperacillin Sod/ Tazobactam Sod 3.375 gm/Dextrose 50 ml @ 50 mls/hr Q6H IV 02/21/21 02:00 02/21/21 09:57 DC 02/21/21 08:44 Rifaximin (Xifaxan) 550 mg BID PO 02/20/21 22:40 02/22/21 08:58 Sodium Chloride 1,000 ml @ 100 mls/hr Q10H IV 02/20/21 18:50 02/20/21 19:12 DC Sodium Chloride (Saline Lock Flush) 10 ml ASDIRECTED PRN IV SEE LABEL COMMENTS 02/21/21 03:05 02/21/21 19:22 Sodium Chloride (Saline Lock Flush) 10 ml SLF IV 02/21/21 06:00 02/22/21 06:13 Sucralfate (Carafate) 1 gm ACHS PO 02/20/21 21:00 02/22/21 17:14 Tamsulosin HCl (Flomax) 0.4 mg QHS PO 02/20/21 21:00 02/21/21 12:45 DC 02/21/21 02:45 Allergies Coded Allergies: No Known Allergies (Unverified , 01/08/18) Assessment/Plan Date Seen The patient was seen on 02/22/21 IN AM during rounds. Plan / VTE VTE Prophylaxis Ordered?: Yes Plan Orders past 48 Hours Orders Linezolid (Zyvox) (02/21/21 09:00) Midodrine Hcl (Proamatine) (02/21/21 08:00) Omeprazole (Prilosec) (02/21/21 09:00) Nephrology Consult (02/20/21 22:35) Gastrointestinal (Gi) Panel (02/20/21 22:36) Isolation: Contact & Cleaning (02/20/21 22:36) Ed Isolation: Contact&Cleaning (02/20/21 22:36) Rifaximin (Xifaxan) (02/20/21 22:40) Sucralfate (Carafate) (02/20/21 21:00) Tamsulosin Hcl (Flomax) (02/20/21 21:00) Octreotide Acetate (Sandostatin) (02/21/21 00:00) Pt & Aptt (02/20/21 23:21) Lactic Acid Level, Lactate (02/20/21 23:24) Fsbs Ac&Hs (Fingerstick) ACHS (02/20/21 23:24) Hypoglycemic Protocol (02/20/21 23:24) Insulin Lispro (Humalog Insulin) (02/21/21 07:30) D50w (Dextrose 50%) (02/20/21 23:25) Glucose (Glucose) (02/20/21 23:25) Glucagon (Glucagon) (02/20/21 23:25) Creatine Phosphokinase (02/20/21 23:27) Insulin Lispro (Humalog Insulin) (02/20/21 21:00) Heparin (Heparin) (02/21/21 09:00) Neurological Check Q4H (02/20/21 23:46) Elevate Head Of Bed 30 Degrees (02/20/21 23:46) Ammonia (02/20/21 23:46) 2 Gram Sodium Diet (02/21/21 Breakfast) Abd Complete Us (02/21/21 00:00) Liver Doppler Flow (02/21/21 ) Phosphorous Level (02/21/21 00:12) Piperacillin/Tazobactam Sod (Zosyn) (02/21/21 02:00) Fingerstick Blood Sugar (02/21/21 02:13) Sodium Chloride Flush (Saline Lock Flush (02/21/21 06:00) Heparin (Flush) (Heparin Lock Flush 10un (02/21/21 06:00) Sodium Chloride Flush (Saline Lock Flush (02/21/21 03:05) Heparin (Flush) (Heparin Lock Flush 10un (02/21/21 03:05) Sputum Culture And Gram Stain (02/21/21 04:29) Guaifenesin Er Tablet (Mucinex Tab Er) (02/21/21 04:30) Portable Chest X-Ray (02/21/21 06:00) Bedrest With Commode (02/21/21 07:08) * Nursing Order * (02/21/21 07:10) Piperacillin/Tazobactam Sod (Zosyn) (02/21/21 11:00) Albumin 25% (02/21/21 09:57) Albumin 25% (02/21/21 15:57) Albumin 25% (02/21/21 21:57) Albumin 25% (02/22/21 03:57) Albumin 25% (02/22/21 09:57) Administer Albumin 25% (02/21/21 09:57) Piperacillin/Tazobactam Sod (Zosyn) (02/21/21 17:00) Fingerstick Blood Sugar (02/21/21 11:48) Midodrine Hcl (Proamatine) (02/21/21 12:00) Urinalysis (02/21/21 12:04) Sodium,Random Urine (02/21/21 12:04) Chloride,Random Urine (02/21/21 12:04) Creatinine,Random Urine (02/21/21 12:04) * Nursing Order * (02/21/21 12:04) Mrsa Pcr Screen (02/21/21 12:29) Fingerstick Blood Sugar (02/21/21 16:42) Fingerstick Blood Sugar (02/21/21 21:15) Fingerstick Blood Sugar (02/22/21 06:02) Cbc With Differential (02/22/21 07:14) Complete Comphrensive Metaboli (02/22/21 07:14) Cbc With Differential (02/23/21 06:00) Cbc With Differential (02/24/21 06:00) Cbc With Differential (02/25/21 06:00) Cbc With Differential (02/26/21 06:00) Cbc With Differential (02/27/21 06:00) Cbc With Differential (02/28/21 06:00) Cbc With Differential (03/01/21 06:00) Basic Metabolic Profile (02/23/21 06:00) Basic Metabolic Profile (02/24/21 06:00) Basic Metabolic Profile (02/25/21 06:00) Basic Metabolic Profile (02/26/21 06:00) Basic Metabolic Profile (02/27/21 06:00) Basic Metabolic Profile (02/28/21 06:00) Basic Metabolic Profile (03/01/21 06:00) Picc Line Insertion W/Siterite (02/22/21 ) * Nursing Order * (02/22/21 11:42) Off Monitor For Tests (02/22/21 11:42) Fingerstick Blood Sugar (02/22/21 11:48) Paracentesis Needle Place Us (02/22/21 12:33) * Nursing Order * (02/22/21 12:52) Cell Count Ascites Fluid (02/22/21 12:53) Albumin 25% (02/22/21 12:53) Body Fluid Culture (02/22/21 13:46) Fingerstick Blood Sugar (02/22/21 16:35) Fingerstick Blood Sugar (02/22/21 20:53) Plan Text 1. Acute oliguric renal failure. Prerenal urine electrolytes, indicating Hepatorenal syndrome or tense ascites causing compression of renal vasculature. His ascitic fluid needs to be removed, In the meantime, we would empirically continue to treat him as hepatorenal and continue midodrine, octreotide subcutaneous and albumin infusions. If he remains oliguric by tomorrow then I would get the HD catheter placed to start HD. 2. Leukocytosis and recent bacteremia. The patient came in with leukocytosis and acute renal failure. He was recently treated for bacteremia and discharged from the hospital on February 17. He has been empirically started on IV Zosyn. Cultures have been negative so far. 3. Decompensated FLOOD cirrhosis with tense ascites. The patient will go for paracentesis. I talked with IR to remove at least 8-10L fluid. 4. Hyponatremia. The patient has hypervolemic hyponatremia. Sodium level should improve with improvement in the volume status. 5. Diarrhea. Lactulose stopped. Recent gastrointestinal (GI) panel is negative. 6. Heart failure with preserved ejection fraction, grade 1 diastolic dysfunction. I cannot give him diuretics at this time because the patient is in acute renal failure. Once his ascites his tapped and he starts making urine, he will be started diuretic regimen. Otherwise we shall have to start HD. JOHANN SANTIAGO MD Feb 22, 2021 21:28
[2021-02-23] MEDS: PIPERACILLIN/TAZOBACTAM SOD 2.25 GM in D5W MINI-BAG PLUS 50 ML IV SCH ×3 (01:03→18:28)
[2021-02-23] MEDS: OCTREOTIDE ACETATE 100MCG/ML VIAL **IV ADMINISTRATION ONLY SC SCH ×3 (01:03→18:28)
[2021-02-23 01:15] VITALS: BP 103/63
[2021-02-23 06:00] VITALS: BP 112/66
[2021-02-23] MEDS: SODIUM CHLORIDE 0.9% INJ 10 ML SYR IV SCH ×2 (06:18→13:17)
[2021-02-23 06:33] LABS: BASO % 0.2 % (0.0-1.0); EOS % 0.1 % (0.0-3.0); HEMATOCRIT 26.6 % (42.0-52.0); HEMOGLOBIN 9.2 g/dl (13.5-17.5); LYMPH # 1.1 10^3/uL (1.5-5.0); LYMPH % 13.1 % (24.0-44.0); MEAN CORPUSCULAR HEMOGLOBIN 30.6 pg (27.0-33.0); MEAN CORPUSCULAR HGB CONC 34.6 g/dl (32.0-36.5); MEAN CORPUSCULAR VOLUME 88.4 fl (80.0-96.0); MONO # 0.2 10^3/uL (0.0-0.8); MONO % 2.7 % (2.0-8.0); NEUTROPHILS # 6.8 10^3/uL (1.5-8.5); NEUTROPHILS % 83.7 % (36.0-66.0); RED BLOOD COUNT 3.01 10^6/uL (4.30-6.10); WHITE BLOOD COUNT 8.1 10^3/uL (4.0-10.0)
[2021-02-23 06:50] LABS: PLATELET COUNT, AUTOMATED 86 10^3/uL (150-450)
[2021-02-23 07:01] LABS: CREATININE FOR GFR 5.03 MG/DL (0.70-1.30); GLOMERULAR FILTRATION RATE 12.4 (>49); POTASSIUM SERUM 3.5 MEQ/L (3.5-5.1)
[2021-02-23] MEDS: HumaLOG INSULIN (NovoLOG) PER UNIT SC SCH ×4 (07:30→20:25)
[2021-02-23] MEDS: HEPARIN SOD (PORCINE) 5000UNITS/ML 1ML VIAL/SYRINGE SQ SCH ×2 (07:58→19:52)
--- NOTE | 2021-02-23 08:19 | REP ---
INDICATION: remove at least 8-10 liters of ascites fluid The patient has a history of ascites COMPARISON: None. TECHNIQUE: The procedure was performed by THANH White, under the direct supervision of Dr. Kern. The risks and benefits of the procedure were explained to the patient and an informed consent was obtained both verbally and written. Directly prior to the start of the procedure a formal time-out was completed in the procedure room. The largest pocket of fluid was localized in the left flank using ultrasound guidance. The skin was prepped and draped in a sterile fashion. Sixteen ML of 1% lidocaine 10 mg/ml was used as a local anesthetic. An 8-[place] multi side-hole catheter was inserted using trocar technique. FINDINGS: 8250 mL of yellow ascites was removed in total, at 1200 mL was sent to the laboratory for further analysis, and the rest was discarded. The patient tolerated the procedure well and there were no immediate complications. After the appropriate amount of monitored convalescence, the patient was discharged from the department. IMPRESSION: Ultrasound-guided paracentesis with removal of 8250 mL of yellow ascites. <Electronically signed by Shelby Campos > 02/22/21 1604 <Electronically signed by Eleon Kern > 02/22/21 1630
[2021-02-23] MEDS: rifAXIMin 550 MG TAB (XIFAXAN) PO SCH ×2 (08:20→20:50)
[2021-02-23] MEDS: SUCRALFATE 1 GM TAB PO SCH ×4 (08:20→20:50)
[2021-02-23] MEDS: OMEPRAZOLE 20 MG CAP PO SCH (08:20)
[2021-02-23] MEDS: MIDODRINE 5 MG TAB PO SCH ×3 (08:20→18:28)
[2021-02-23] MEDS ORDERED: FUROSEMIDE 100MG/10ML VIAL (J1940) IV ONE (09:20)
--- NOTE | 2021-02-23 12:49 | IPNPDOC ---
Subjective CC/HPI The patient is a 66-year-old male admitted with a reason for visit of Venancio, Ascites. Events since last encounter Pt got Ascitic tap done. 8.2L fluid was removed. He reports improvement in abdominal symptoms. He started making some urine but he remains oliguric. Cr continues to rise. I discussed the HD with him and he agreed to have it done if it is going to help him. General: Reports: Fatigue, Malaise; Denies: Chills, Night Sweats, Normal Appetite Constitutional: Reports: Weakness; Denies: Chills, Fever Eyes: Denies: Pain, Vision change ENT: Denies: Head Aches, Ear Pain Skin: Denies: Rash, Lesions Pulmonary: Denies: Dyspnea, Cough Cardiovascular: Denies: Chest Pain, Palpitations Gastrointestinal: Reports: Nausea, Other Symptoms (Ascites); Denies: Vomiting Genitourinary: Reports: Other Symptoms (Rivera); Denies: Dysuria Hematologic: Denies: Bruising, Bleeding Excessively Musculoskeletal: Denies: Neck Pain, Back Pain Neurological: Reports: Weakness Psych: Reports: Depression Objective Physical Examination General Exam: Alert, Mild Distress (weak and lethargic) EYE EXAM: PERRLA, EOMI, Sclera icteric ENT EXAM: Atraumatic, Mucous membr. moist/pink Neck Exam: Supple, JVD Chest Exam: Clear to auscultation, Other (Decreased BS at bases.) Heart Exam: Rate Normal, Normal S1, Normal S2; No: Murmurs, Rubs ABDOMEN EXAM: Normal bowel sounds, Other (Improvement in distention after paracentesis.) Male Exam: No: Normal Genital Exam (Rivera catheter with small amount of dark urine in bag.) Extremity Exam: Clubbing, Edema (3+ edema from feet all the way to thighs) Skin Exam: Nl turgor and temperature Neuro Exam: Normal Speech, Strength at 5/5 X4 ext Psych Exam: Mental status NL, Mood NL, Oriented x 3 Vital Signs/I&O Vital Signs Date Time Temp Pulse Resp B/P (MAP) Pulse Ox O2 Delivery O2 Flow Rate FiO2 02/23/21 06:00 98.0 67 18 112/66 (81) 96 Room Air I&O- Last 24 Hours up to 6 AM 02/23/21 06:00 Intake Total 560.0 ml Output Total 8475 ml Balance -7915.0 ml Laboratory Data Labs 24H Laboratory Tests 2 02/22/21 14:15: Body Fluid Source ASCITES, Body Fluid Color YELLOW, Body Fluid Appearance HAZY, Body Fluid WBC (Auto) 49H, Body Fluid RBC (Auto) 2, Body Fluid Mononuclear Cells % Auto 91.9H, Fluid Polymorphonuclear Cell % Auto 8.1H 02/22/21 16:35: Bedside Glucose (Misc Panel) 112 02/22/21 20:53: Bedside Glucose (Misc Panel) 138H 02/23/21 06:00: Immature Granulocyte % (Auto) 0.2, Neutrophils (%) (Auto) 83.7H, Lymphocytes (%) (Auto) 13.1L, Monocytes (%) (Auto) 2.7, Eosinophils (%) (Auto) 0.1, Basophils (%) (Auto) 0.2, Neutrophils # (Auto) 6.8, Lymphocytes # (Auto) 1.1L, Monocytes # (Auto) 0.2, Eosinophils # (Auto) 0.0, Basophils # (Auto) 0.0, Nucleated Red Blood Cells % (auto) 0.0, Immature Platelet Fraction 1.4, Anion Gap 14, Glomerular Filtration Rate 12.4L, Calcium Level 8.0L 02/23/21 11:16: Bedside Glucose (Misc Panel) 115 CBC/BMP Laboratory Tests 02/23/21 06:00 FSBS Laboratory Tests Test 02/22/21 16:35 02/22/21 20:53 02/23/21 11:16 Range/Units Bedside Glucose (Misc Panel) 112 138 115 80-115 MG/DL Current Medications Current Medications Medications (Trade) Dose Ordered Sig/Wallace Route PRN Reason Start Time Stop Time Status Last Admin Dose Admin Acetaminophen (Tylenol Tab) 650 mg Q4H PRN PO MILD PAIN or TEMP > 101 02/20/21 20:00 02/20/21 22:37 DC Al Hydrox/Mg Hydrox/Simethicone (Mylanta) 30 ml DAILY PRN PO DYSPEPSIA 02/20/21 20:00 02/20/21 22:37 DC Dextrose (Dextrose 50%) 25 ml ASDIRECTED PRN IV SEE LABEL COMMENTS 02/20/21 23:25 Glucagon (Glucagon) 1 mg ASDIRECTED PRN SC SEE LABEL COMMENTS 02/20/21 23:25 Glucose (Glucose) 16 GM ASDIRECTED PRN PO SEE LABEL COMMENTS 02/20/21 23:25 Guaifenesin (Mucinex Tab Er) 600 mg BIDP PRN PO cough 02/21/21 04:30 Heparin Sodium (Heparin Lock Flush 10units/ml) 10 units ASDIRECTED PRN IV SEE LABEL COMMENTS 02/21/21 03:05 02/21/21 19:22 Heparin Sodium (Heparin Lock Flush 10units/ml) 10 units HLF IV 02/21/21 06:00 02/23/21 06:18 Heparin Sodium (Porcine) (Heparin) 5,000 units Q12H SQ 02/21/21 09:00 02/22/21 21:40 Home Med (Home Med List Complete!) ASDIRECTED XX 02/20/21 19:20 02/20/21 19:23 DC Insulin Human Lispro (HumaLOG INSULIN) See Protocol Table AC SC 02/21/21 07:30 02/21/21 13:36 Insulin Human Lispro (HumaLOG INSULIN) See Protocol Table QHS SC 02/20/21 21:00 Linezolid (Zyvox) 600 mg BID PO 02/21/21 09:00 02/20/21 23:53 DC Magnesium Hydroxide (Milk Of Magnesia) 30 ml DAILY PRN PO CONSTIPATION 02/20/21 20:00 02/20/21 23:22 DC Midodrine (Proamatine) 5 mg TID@0800,1200,1600 PO 02/21/21 08:00 02/21/21 12:04 DC 02/21/21 08:43 Midodrine (Proamatine) 10 mg TID@0800,1200,1600 PO 02/21/21 12:00 02/23/21 08:20 Octreotide Acetate (SandoSTATIN) 100 mcg Q8H SC 02/21/21 00:00 02/23/21 08:20 Omeprazole (PriLOSEC) 20 mg DAILY PO 02/21/21 09:00 02/23/21 08:20 Piperacillin Sod/ Tazobactam Sod 2.25 gm/Dextrose 50 ml @ 100 mls/hr Q8H IV 02/21/21 11:00 02/21/21 11:43 DC Piperacillin Sod/ Tazobactam Sod 2.25 gm/Dextrose 50 ml @ 100 mls/hr Q8H IV 02/21/21 17:00 02/23/21 08:20 Piperacillin Sod/ Tazobactam Sod 3.375 gm/Dextrose 50 ml @ 50 mls/hr Q6H IV 02/21/21 02:00 02/21/21 09:57 DC 02/21/21 08:44 Rifaximin (Xifaxan) 550 mg BID PO 02/20/21 22:40 02/23/21 08:20 Sodium Chloride 1,000 ml @ 100 mls/hr Q10H IV 02/20/21 18:50 02/20/21 19:12 DC Sodium Chloride (Saline Lock Flush) 10 ml ASDIRECTED PRN IV SEE LABEL COMMENTS 02/21/21 03:05 02/21/21 19:22 Sodium Chloride (Saline Lock Flush) 10 ml SLF IV 02/21/21 06:00 02/23/21 06:18 Sucralfate (Carafate) 1 gm ACHS PO 02/20/21 21:00 02/23/21 08:20 Tamsulosin HCl (Flomax) 0.4 mg QHS PO 02/20/21 21:00 02/21/21 12:45 DC 02/21/21 02:45 Allergies Coded Allergies: No Known Allergies (Unverified , 01/08/18) Assessment/Plan Date Seen The patient was seen on 02/23/21 at bedside in AM. Plan / VTE VTE Prophylaxis Ordered?: Yes Plan Orders past 48 Hours Orders Mrsa Pcr Screen (02/21/21 12:29) Fingerstick Blood Sugar (02/21/21 16:42) Fingerstick Blood Sugar (02/21/21 21:15) Fingerstick Blood Sugar (02/22/21 06:02) Cbc With Differential (02/22/21 07:14) Complete Comphrensive Metaboli (02/22/21 07:14) Cbc With Differential (02/23/21 06:00) Cbc With Differential (02/24/21 06:00) Cbc With Differential (02/25/21 06:00) Cbc With Differential (02/26/21 06:00) Cbc With Differential (02/27/21 06:00) Cbc With Differential (02/28/21 06:00) Cbc With Differential (03/01/21 06:00) Basic Metabolic Profile (02/23/21 06:00) Basic Metabolic Profile (02/24/21 06:00) Basic Metabolic Profile (02/25/21 06:00) Basic Metabolic Profile (02/26/21 06:00) Basic Metabolic Profile (02/27/21 06:00) Basic Metabolic Profile (02/28/21 06:00) Basic Metabolic Profile (03/01/21 06:00) Picc Line Insertion W/Siterite (02/22/21 ) * Nursing Order * (02/22/21 11:42) Off Monitor For Tests (02/22/21 11:42) Fingerstick Blood Sugar (02/22/21 11:48) Paracentesis Needle Place Us (02/22/21 12:33) * Nursing Order * (02/22/21 12:52) Cell Count Ascites Fluid (02/22/21 12:53) Albumin 25% (02/22/21 12:53) Body Fluid Culture (02/22/21 13:46) Fingerstick Blood Sugar (02/22/21 16:35) Fingerstick Blood Sugar (02/22/21 20:53) Immature Platelet Fraction (02/23/21 06:00) Furosemide Injection (Lasix Injection) (02/23/21 09:20) Surgical Consult (02/23/21 09:59) Provider Order Sheet (02/23/21 10:48) Fingerstick Blood Sugar (02/23/21 11:16) Renal Diet (02/23/21 Lunch) Npo Diet For Test/Procedure (02/24/21 Breakfast) Prothrombin Time Profile\Inr (02/24/21 06:00) Plan Text 1. Acute oliguric renal failure. No significant improvement in UOP or renal function after paracentesis. continue midodrine, octreotide subcutaneous and albumin infusions. I would do a trial of IV lasix. I have requested vascular for placement of tunneled HD catheter. Start HD in AM. He agrees to start HD. 2. Leukocytosis and recent bacteremia. He was recently treated for bacteremia and discharged from the hospital on February 17. He has been empirically started on IV Zosyn. Leukocytosis has resolved. 3. Decompensated FLOOD cirrhosis with tense ascites. s/p paracentesis~8.2L. Give IV lasix today to see if his urine output would improve. 4. Hyponatremia. The patient has hypervolemic hyponatremia. Na would improve with HD and fluid removal. 5. Heart failure with preserved ejection fraction, grade 1 diastolic dysfunction/Anasarca: Trial of Lasix today. Fluid removal with HD roxie adler. JOHANN SANTIAGO MD Feb 23, 2021 12:49
--- NOTE | 2021-02-23 13:13 | IPNPDOC ---
Text Note Date of Service The patient was seen on 02/23/21. NOTE Subjective: Patient is a 66-year-old male who presented with massive pedal edema and ascites who received paracentesis yesterday. Patient is scared that he may have to have dialysis however, patient says that his belly is feeling better now that the fluid has been drained. Patient does not have any other complaints at this time. Review of systems: General: Patient denies fevers HEENT: Patient denies headaches Cardiovascular: Patient denies chest pain Respiratory: Patient denies shortness of breath, cough GI: Patient reports improved abdominal pain. : Patient denies increased frequency or pain with urination Extremities: Patient reports swelling in his bilateral lower extremities Neurological: Patient denies numbness or tingling in legs Physical exam: Vitals: See below General: Alert and oriented male patient who was sitting in bed when I walked in. Patient did not appear to be in any acute distress. HEENT: Normocephalic, atraumatic, moist mucous membranes. Neck: No lymphadenopathy or thyromegaly Cardiac: Regular rate and rhythm, no murmurs, normal S1, normal S2 Pulm: Clear to auscultation bilaterally. No wheezes, rhonchi, rales Abd: Minimally distended, nontender to palpation, normal bowel sounds Ext: Edema up to the bilateral hips. 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 Faecium and ESBL Klebsiella bacteremia with upper GI bleed secondary to AVMs, pancreatic carcinoma, status post Whipple in 2017 who presented to the emergency department with a chief complaint of urinary retention and had his Rivera replaced and was sent home. Patient returned on 02/21/2021 with a chief complaint of decreased urine output despite having new Rivera placed. Rivera was flushed in exchange with no urine output. Patient also complained of loose bowel movements several times a day and is found to have an KAILEE with a creatinine of 3.5. 1. Acute kidney injury. The patient did have diarrhea for 1 day. This may be secondary to prerenal from poor intravascular volume or most likely from hepatorenal syndrome. Patient had paracentesis. Started on midodrine, albumin, and octreotide. Patient will be starting dialysis tomorrow according to nephrology. 2. Decompensated liver cirrhosis secondary to Avalos with ascites. Patient has significant mount of ascites. Patient had paracentesis done yesterday and 8.2 L were removed. Patient was started on IV Zosyn for possible SBP however, this was negative. Antibiotics can be discontinued today. 3. Diarrhea. He is on antibiotics and has a history of C. difficile in 2020. GI panel is negative. 4. Lactic acidosis likely secondary to dehydration plus/minus reduced hepatic clearance of lactic acid. 5. Recurrent bacteremia. Blood cultures sent again. Recent diagnosis of E. Faecium and ESBL Klebsiella bacteremia treated with Zosyn and vancomycin was discharged on linezolid till 02/23/2021 however patient got admitted on 02/20/2021 and got a loading dose of vancomycin. Continue on Zosyn only here. 6. Sarcopenia/deconditioning. Due to chronic medical diseases. Continue with PT/OT. 7. Chronic anemia. Recent upper GI bleed secondary to AVMs. Monitor hemoglobin hematocrit. 8. Chronic hypotension. Increase dose of midodrine. 9. Chronic heart failure preserved ejection fraction (grade 1). Patient does appear hypervolemic today. Patient will receive a dose of Lasix via nephrology and we will continue to monitor. 10. Yee-tefpmdh-voppyaieh diabetes mellitus. Consistent carbohydrate diet. 11. History of pancreatic cancer. Status post Whipple's procedure. 12. ESBL Klebsiella on sputum culture. We will continue IV Zosyn at this time as it is sensitive. Patient will be on 7 days of IV Zosyn total. DVT Prophylaxis: Heparin being held today due to thrombocytopenia and placement of tunneled dialysis catheter and PICC line Disposition: Pending clinical improvement. Patient to start dialysis tomorrow VS,Augiee, I+O VS, Fishbone, I+O Laboratory Tests 02/23/21 06:00 Vital Signs Date Time Temp Pulse Resp B/P (MAP) Pulse Ox O2 Delivery O2 Flow Rate FiO2 02/23/21 06:00 98.0 67 18 112/66 (81) 96 Room Air I&O- Last 24 Hours up to 6 AM 02/23/21 06:00 Intake Total 560.0 ml Output Total 8475 ml Balance -7915.0 ml GUALBERTO ALBERT DO Feb 23, 2021 13:13
[2021-02-23 14:00] VITALS: BP 108/66
[2021-02-23] MEDS ORDERED: LIDOCAINE 1% MDV 20ML VIAL ONE (16:19)
[2021-02-23 17:51] VITALS: BP 112/66
--- NOTE | 2021-02-23 18:25 | CR.PDOC ---
General Date of Consultation: Feb 23, 2021 (Seen at 620 pm) Referring Provider: JOHANN SANTIAGO MD Attending Physician: Jade Downing MD Consultation REASON FOR CONSULTATION/CHIEF COMPLAINT: Permcath insertion for urgent hemodialysis HISTORY OF PRESENT ILLNESS: is a 66-year-old gentleman, who was hospitalized on 02/20/2021, with oliguria/anuria. He had no urine output from hi s Faria catheter, and was initially thought that he was seen urinary retention. However it was realized that he had acute worsening of his chronic kidney disease, and he requires urgent hemodialysis The patient was last hospitalized from Feb 07 to Feb 17 for management of Severe Sepsis 2/2 E. faecium & ESBL klebsiella bacteremia, Vomiting, Acute blood loss anemia, Hypotension, KAILEE on CKD3 and ascites. It was felt that the primary source of bacteremia may be GI in nature but pleural fluid analysis was unrevealing; nevertheless he was discharged with instructions to take linezolid for 6 more days pending an appointment with the liver transplant clinic in [place]. With regards to the blood loss anemia EGD revealed a small AVM that was cauterized. It was suspected that the KAILEE was due to sepsis therefore his diuretics were held he was given albumin and midodrine. The patient also had paracentesis twice on Feb 09 and Feb 15. The day after he was discharged he returned with c/o urinary retention, had a faria placed and was sent home. PAST MEDICAL AND SURGICAL HISTORY: Decompensated FLOOD Cirrhosis (complicated by episodes Hepatic encephalopathy, Recurrent ascites, and Chronic Hypervolemic Hyponatremia), Recent diagnosis of E. faecium & ESBL klebsiella bacteremia, UGIB 2/2 AVMs, Pancreatic Carcinoma (s/p Whipple 2016), CKD3, chronic hypotension, GERD, Chronic HFpEF (grade 1), PE (October 2017), hx of C. Diff in Dec, diet controlled NIDDM, hx of SVT, resection of tubular adenomas from his colon, right knee surgery, Cholecystectomy FAMILY HISTORY: He denies having a family hx of liver disease. His Father had HTN, mother had DM and CAD. SOCIAL HISTORY: He is a former smoker (15 pack year habit quit about 29 yrs ago) and doesnt drink or use recreational drugs. His Karen is his contact ALLERGIES: No known drug allergies HOME MEDICATIONS: Please see below. PHYSICAL EXAMINATION: VITAL SIGNS: Please see below. GENERAL APPEARANCE: Thin built underweight sick looking gentleman, who seems very depressed, and not very interested in communicating. Bruising on the skin HEENT: Pallor+, no icterus, no carotid bruits RESPIRATORY: Bilateral equal air entry, decreased at the bases, no crepitations CARDIOVASCULAR: Regular heart sounds, no murmurs Vascular: Bilateral radial pulses, femoral and dorsalis pedis +2 palpable. ABDOMEN: Well-healed upper abdominal laparotomy scar, ascites. Nontender EXTREMITIES: Warm and well-perfused. Mild pedal edema of the lower extremities.. NEUROLOGICAL: Awake alert and oriented, appropriately responsive. Grossly nonfocal exam PSYCHIATRIC: Severely depressed mood and affect LABORATORY DATA: Please see below. ASSESSMENT/PLAN: KAILEE in a patient with chronic kidney disease stage III, FLOOD cirrhosis and ascites Plan: For Permcath insertion tomorrow - 02/24/21. Suggest treatment for depression Vital Signs/I&O Vital Signs Date Time Temp Pulse Resp B/P (MAP) Pulse Ox O2 Delivery O2 Flow Rate FiO2 02/23/21 17:51 98.3 68 16 112/66 (81) 98 Room Air I&O- Last 24 Hours up to 6 AM 02/23/21 06:00 Intake Total 560.0 ml Output Total 8475 ml Balance -7915.0 ml Laboratory Data Labs 24H Laboratory Tests 2 02/22/21 20:53: Bedside Glucose (Misc Panel) 138H 02/23/21 06:00: Immature Granulocyte % (Auto) 0.2, Neutrophils (%) (Auto) 83.7H, Lymphocytes (%) (Auto) 13.1L, Monocytes (%) (Auto) 2.7, Eosinophils (%) (Auto) 0.1, Basophils (%) (Auto) 0.2, Neutrophils # (Auto) 6.8, Lymphocytes # (Auto) 1.1L, Monocytes # (Auto) 0.2, Eosinophils # (Auto) 0.0, Basophils # (Auto) 0.0, Nucleated Red Blood Cells % (auto) 0.0, Immature Platelet Fraction 1.4, Anion Gap 14, Glomerular Filtration Rate 12.4L, Calcium Level 8.0L 02/23/21 11:16: Bedside Glucose (Misc Panel) 115 02/23/21 17:46: Bedside Glucose (Misc Panel) 99 CBC/BMP Laboratory Tests 02/23/21 06:00 Microbiology Microbiology 02/22/21 Body Fluid Culture, Received Pending 02/21/21 Gram Stain - Final, Complete 02/21/21 Sputum Culture - Final, Complete Klebsiella Pneumoniae Esbl 02/21/21 Gastrointestinal Tract Panel (PCR) - Final, Complete 02/20/21 Blood Culture - Preliminary, Resulted No Growth after 48 hours. All Specime... 02/20/21 Blood Culture - Preliminary, Resulted No Growth after 48 hours. All Specime... Allergies Coded Allergies: No Known Allergies (Unverified , 01/08/18) Home Medications Scheduled Cholecalciferol (Vitamin D3) (Vitamin D3) 1,000 Unit Tablet, 1,000 UNITS PO QPM, (Reported) Lactulose (Lactulose) 10 Gm/15 Ml Solution, 30 ML PO TID, (Reported) MORNING/DINNER/BEDTIME Linezolid (Linezolid) 600 Mg Tablet, 600 MG PO BID, (Reported) started 02/17/21 x 6 days Midodrine HCl (Midodrine HCl) 5 Mg Tablet, 5 MG PO TID, (Reported) 8,12,16 Omeprazole (Omeprazole) 20 Mg Capsule.dr, 20 MG PO DAILY, (Reported) Sucralfate (Sucralfate) 1 Gm Tablet, 1 GM PO ACHS, (Reported) Tamsulosin HCl (Flomax) 0.4 Mg Capsule, 0.4 MG PO QHS, (Reported) Jade Downing MD Feb 23, 2021 18:25
[2021-02-23] MEDS ORDERED: SODIUM CHLORIDE 0.9% INJ 10 ML SYR IV PRN (19:05)
[2021-02-23 22:00] VITALS: BP 112/66
[2021-02-24] MEDS: PIPERACILLIN/TAZOBACTAM SOD 2.25 GM in D5W MINI-BAG PLUS 50 ML IV SCH ×3 (01:29→17:11)
[2021-02-24] MEDS: OCTREOTIDE ACETATE 100MCG/ML VIAL **IV ADMINISTRATION ONLY SC SCH ×2 (01:29→06:03)
[2021-02-24] MEDS: HEPARIN SOD (PORCINE) 5000UNITS/ML 1ML VIAL/SYRINGE SQ SCH ×2 (05:51→19:57)
[2021-02-24 06:00] VITALS: BP 92/59
[2021-02-24] MEDS: MIDODRINE 5 MG TAB PO SCH ×3 (06:02→17:10)
[2021-02-24] MEDS: OMEPRAZOLE 20 MG CAP PO SCH (06:02)
[2021-02-24] MEDS: rifAXIMin 550 MG TAB (XIFAXAN) PO SCH ×2 (06:03→21:00)
[2021-02-24] MEDS: SUCRALFATE 1 GM TAB PO SCH ×3 (06:03→21:00)
[2021-02-24 06:36] LABS: BASO % 0.2 % (0.0-1.0); HEMATOCRIT 28.8 % (42.0-52.0); HEMOGLOBIN 10.1 g/dl (13.5-17.5); LYMPH # 1.3 10^3/uL (1.5-5.0); LYMPH % 11.7 % (24.0-44.0); MEAN CORPUSCULAR HEMOGLOBIN 30.8 pg (27.0-33.0); MEAN CORPUSCULAR HGB CONC 35.1 g/dl (32.0-36.5); MEAN CORPUSCULAR VOLUME 87.8 fl (80.0-96.0); MONO # 0.4 10^3/uL (0.0-0.8); MONO % 3.4 % (2.0-8.0); NEUTROPHILS % 84.5 % (36.0-66.0); RED BLOOD COUNT 3.28 10^6/uL (4.30-6.10); WHITE BLOOD COUNT 10.7 10^3/uL (4.0-10.0)
[2021-02-24 06:38] LABS: PLATELET COUNT, AUTOMATED 94 10^3/uL (150-450)
[2021-02-24 06:42] LABS: INR 1.67; PROTHROMBIN TIME 20.1 SECONDS (12.7-14.5)
[2021-02-24] MEDS ORDERED: LIDOCAINE 1% MDV 20ML VIAL ONE ×2 (06:44→08:14)
[2021-02-24 06:46] LABS: HEMOGLOBIN A1c 5.1 %
[2021-02-24] MEDS: SODIUM CHLORIDE 0.9% INJ 10 ML SYR IV SCH ×2 (06:48→17:12)
[2021-02-24 07:02] LABS: BLOOD UREA NITROGEN 32 MG/DL (7-18); CALCIUM LEVEL 7.4 MG/DL (8.8-10.2); CARBON DIOXIDE LEVEL 18 MEQ/L (21-32); CHLORIDE LEVEL 98 MEQ/L (98-107); CHOLESTEROL LEVEL 61 MG/DL (<200); CHOLESTEROL RISK RATIO 1.848 (<5); CREATININE FOR GFR 5.61 MG/DL (0.70-1.30); GLOMERULAR FILTRATION RATE 10.9 (>49); GLUCOSE, FASTING 84 MG/DL (70-100); HDL CHOLESTEROL 33 MG/DL (>40); LDL CHOLESTEROL 20 MG/DL (<100); NON-HDL-C 28 MG/DL; POTASSIUM SERUM 3.4 MEQ/L (3.5-5.1); SODIUM LEVEL 129 MEQ/L (136-145); TRIGLYCERIDES LEVEL 41 MG/DL (<150)
[2021-02-24] MEDS ORDERED: fentaNYL 100 MCG/2 ML INJECTION (J3010) ONE (07:20)
[2021-02-24] MEDS: HumaLOG INSULIN (NovoLOG) PER UNIT SC SCH ×4 (07:30→21:00)
--- NOTE | 2021-02-24 08:55 | ROOPDOC ---
[facility] Report Of Operation Report of Operation DATE OF PROCEDURE: 02/24/21 PREPROCEDURE DIAGNOSES: Acute kidney injury, requiring urgent hemodialysis and hemodialysis access POSTPROCEDURE DIAGNOSES: Acute kidney injury, requiring urgent hemodialysis and hemodialysis access PROCEDURE PERFORMED: Insertion of right internal jugular vein permacatheter-23 cm palindrome, ultrasound-guided venous access SURGEON: Jade Downing MD RESEARCH PROGRAM INTERN: None ANESTHESIA: Local. ESTIMATED BLOOD LOSS: Approximately 5 mL. COMPLICATIONS: None. FINDINGS: Patent right internal jugular vein SPECIMENS REMOVED: None PROCEDURE NOTE: Indication for the procedure: The patient is a 66-year-old male, with cirrhosis and ascites, history of pancreatic cancer, who was hospitalized on 02/20/2021, with worsening acute kidney injury and oliguria. He requires urgent hemodialysis. Hence the above-mentioned procedure is being performed. He was hospitalized from 02/07 to 02/17/2021, with severe sepsis, anemia, hypertension, acute kidney injury cirrhosis and ascites. Informed consent was obtained from the patient, for the procedure, after explaining the risk benefits and complications of the procedure, which include but not limited to bleeding, infection, cardiorespiratory complications including pneumothorax, hemothorax, catheter related complications including sepsis, migration, dislodgment etc. Alternatives to the procedure including nonoperative treatment and its consequences were explained. The patient understood and agreed to the procedure. The patient is already on scheduled antibiotics. And hence no further anti biotics are administered. DESCRIPTION OF PROCEDURE: The patient was identified correctly. He was placed supine on the angiogram table. The right side of the neck and upper chest were cleaned and draped in a sterile fashion. A timeout was performed. After administering local anesthesia with 1% lidocaine, the right internal jugular vein was accessed, with a 21-gauge micropuncture needle and exchanged to a 5 Swedish micro sheath. The sheath was then exchanged to a 0.035 inch wire. The subcutaneous tunnel for the catheter and the exit site for the catheter were then anesthetized with 1% lidocaine. The exit site was planned about 2 cm below the clavicle, slightly lateral to the midclavicular line. A small skin incision was made at the exit site. The vein access site was also enlarged, to accommodate the dilators in which sheath. The 23 cm dual-lumen cuffed Palindrome catheter, that was flushed and attached to the metallic tunneler was then tunneled from the exit site incision, to the vein access site subcutaneously. The vein access was serially dilated with dilators, and subsequently the sheath with a dilator was placed over the wire. All steps were performed under fluoroscopic guidance. The dilator of the sheath and the wire were removed, and the catheter that was disconnected from the tunnel was inserted into the sheath, as the sheath was gently peeled away. The final position of the catheter was noted under fluoroscopy. The catheter tip was in the right atrium. There was good backflow through both ports of the catheter. Both ports were flushed with heparinized saline solution. The vein not hep-locked with full-strength heparin, as the patient's INR is 1.6, his platelets are 94,000 and as he is scheduled for hemodialysis in the next 2 hours. The patient tolerated the procedure well. He was transferred to the recovery room in a stable condition. The procedure and findings were discussed with his Karen over the phone. Jade Downing MD Feb 24, 2021 08:55
[2021-02-24 09:48] LABS: HEPATITIS B SURFACE ANTIBODY NEGATIVE (POSITIVE)
[2021-02-24 09:58] LABS: HEPATITIS B SURFACE ANTIGEN NEGATIVE (NEGATIVE)
[2021-02-24 10:26] LABS: HEPATITIS C VIRUS ABY INDEX < 0.0 INDEX (<0.8)
[2021-02-24 10:27] LABS: HEPATITIS B CORE ANTIBODY IGM NEGATIVE (NEGATIVE)
[2021-02-24 14:00] VITALS: BP 97/62
--- NOTE | 2021-02-24 16:13 | IPNPDOC ---
Text Note Date of Service The patient was seen on 02/24/21. NOTE Subjective: Patient is a 66-year-old male presented with massive pedal edema and ascites he received paracentesis 2 days ago. Patient was feeling well today. Patient had tunneled dialysis catheter placed this morning and was due for dialysis later on today. Patient is otherwise feeling well today. Review of systems: General: Patient denies fevers HEENT: Patient denies headaches Cardiovascular: Patient denies chest pain Respiratory: Patient denies shortness of breath, cough GI: Patient reports improved abdominal pain. Patient denies nausea, vomiting, diarrhea : Patient denies increased frequency or pain with urination Extremities: Patient reports swelling swelling bilateral lower extremities Neurological: Patient denies numbness or tingling in legs Physical exam: Vitals: See below General: Alert and oriented male patient who was laying in bed sleeping when I walked in. Patient easily woke and did not appear to be in any acute distress. HEENT: Normocephalic, atraumatic, moist mucous membranes. Neck: No lymphadenopathy or thyromegaly Cardiac: Regular rate and rhythm, no murmurs, normal S1, normal S2 Pulm: Clear to auscultation bilaterally. No wheezes, rhonchi, rales Abd: Minimally distended, nontender to palpation, normal bowel sounds Ext: Edema up to the bilateral hips 3+ bilaterally Labs: See below Imaging: No new imaging has been performed Assessment/plan: 66-year-old male past medical history of decompensated Avalos cirrhosis complicated by hepatic encephalopathy, recurrent ascites, and chronic hypervolemic hyponatremia, chronic hypotension and recent diagnosis of Enterococcus faecium and ESBL Klebsiella bacteremia with upper GI bleed s econdary to AVMs, pancreatic carcinoma status post Whipple procedure in 2017 presented the emergency department with due to urinary retention has Rivera catheter placed and returned on 02/21/2021 with decreased urine output despite the new Rivera placed. Patient was found to have KAILEE with a creatinine of 3.5. 1. Oliguric renal failure. Patient was started on dialysis today. Patient was given midodrine, albumin, octreotide. Patient was also given a dose of IV Lasix which did not increase the patient's urine output greatly. Patient had tunneled dialysis catheter placed yesterday and will be started on dialysis today. I appreciate nephrology's help treating the patient. 2. Decompensated liver cirrhosis secondary to Avalos with ascites. Patient is doing better since his paracentesis. I spoke with Tanisha from the [facility] transplant center ([phone]) who wanted an update as the of the patient had been calling her as they had seen the patient about a month ago. Patient is not a candidate for transfer at this time. Patient will need to start dialysis and if he becomes better, patient may be able to be transferred to [place] in order to possibly proceed with transplant. Patient's meld score today is 30 3. Diarrhea. On antibiotics and history of C. difficile in 2020. GI panel negative. 4. Lactic acidosis likely secondary to dehydration plus/minus for reduced hepatic clearance. Continue to monitor. 5. Recurrent bacteremia. Blood cultures have been negative. On Zosyn today. 6. Sarcopenia/deconditioning. Due to chronic medical diseases. PT/OT have been ordered. 7. Chronic anemia. Recent upper GI bleed secondary to AVMs. Monitor hemoglobin and hematocrit. These have been stable. 8. Chronic hypotension. Continue with midodrine. 9. Chronic heart failure preserved ejection fraction. Appears hypervolemic today. Will be on dialysis. 10. Ljb-tpxbdws-jdwkukkug diabetes mellitus. Consistent carbohydrate diet. 11. History of pancreatic cancer status post Whipple procedure in 2017. 12. ESBL Klebsiella on sputum culture. We will continue IV Zosyn at this time as is sensitive. Patient will receive 7 days of IV Zosyn. DVT Prophylaxis: Heparin Disposition: Pending clinical improvement. VS,Fishbone, I+O VS, Fishbone, I+O Laboratory Tests 02/24/21 06:15 Vital Signs Date Time Temp Pulse Resp B/P (MAP) Pulse Ox O2 Delivery O2 Flow Rate FiO2 02/24/21 08:52 54 18 99 Room Air 02/24/21 08:40 2.0 02/24/21 07:05 98.0 02/24/21 06:00 92/59 (70) I&O- Last 24 Hours up to 6 AM 02/24/21 06:00 Intake Total 70 ml Output Total 750 ml Balance -680 ml GUALBERTO ALBERT DO Feb 24, 2021 16:13
--- NOTE | 2021-02-24 16:55 | IPNPDOC ---
Subjective CC/HPI The patient is a 66-year-old male admitted with a reason for visit of Venancio, Ascites. Events since last encounter Pt was seen at bedside in AM. He just came back after getting Rt IJ tunneled HD catheter. Urine output is slightly better but there is no improvement in renal function. Cr continues to rise. He has persistent Le edema. today will be the first day of HD. General: Reports: Fatigue, Malaise; Denies: Chills, Night Sweats, Normal Appetite Constitutional: Reports: Malaise; Denies: Chills, Fever Eyes: Denies: Pain, Vision change ENT: Denies: Head Aches, Ear Pain Skin: Denies: Rash, Lesions Pulmonary: Reports: Dyspnea Cardiovascular: Reports: Edema; Denies: Chest Pain, Palpitations Gastrointestinal: Denies: Nausea, Vomiting Genitourinary: Reports: Other Symptoms (Rivera); Denies: Dysuria Hematologic: Denies: Bruising, Bleeding Excessively Musculoskeletal: Denies: Neck Pain, Back Pain Neurological: Reports: Weakness Psych: Reports: Depression Objective Physical Examination General Exam: Alert, Mild Distress (weak and lethargic) EYE EXAM: PERRLA, EOMI, Sclera icteric ENT EXAM: Atraumatic, Mucous membr. moist/pink, Other ENT (Rt IJ tunneled HD catheter) Neck Exam: Supple, JVD Chest Exam: Clear to auscultation, Other (Decreased BS at bases.) Heart Exam: Rate Normal, Normal S1, Normal S2; No: Murmurs, Rubs ABDOMEN EXAM: Normal bowel sounds, Other (Mild ascites) Male Exam: No: Normal Genital Exam (Rivera catheter with small amount of dark urine in bag.) Extremity Exam: Clubbing, Edema (3+ edema from feet all the way to thighs) Skin Exam: Nl turgor and temperature Neuro Exam: Normal Speech, Strength at 5/5 X4 ext Psych Exam: Mental status NL, Mood NL, Oriented x 3 Vital Signs/I&O Vital Signs Date Time Temp Pulse Resp B/P (MAP) Pulse Ox O2 Delivery O2 Flow Rate FiO2 02/24/21 08:52 54 18 99 Room Air 02/24/21 08:40 2.0 02/24/21 07:05 98.0 02/24/21 06:00 92/59 (70) I&O- Last 24 Hours up to 6 AM 02/24/21 06:00 Intake Total 70 ml Output Total 750 ml Balance -680 ml Laboratory Data Labs 24H Laboratory Tests 2 02/23/21 17:46: Bedside Glucose (Misc Panel) 99 02/23/21 20:09: Bedside Glucose (Misc Panel) 111 02/24/21 06:15: Immature Granulocyte % (Auto) 0.2, Neutrophils (%) (Auto) 84.5H, Lymphocytes (%) (Auto) 11.7L, Monocytes (%) (Auto) 3.4, Eosinophils (%) (Auto) 0.0, Basophils (%) (Auto) 0.2, Neutrophils # (Auto) 9.0H, Lymphocytes # (Auto) 1.3L, Monocytes # (Auto) 0.4, Eosinophils # (Auto) 0.0, Basophils # (Auto) 0.0, Nucleated Red Blood Cells % (auto) 0.0, Immature Platelet Fraction 1.6, Prothrombin Time 20.1H, Prothromb Time International Ratio 1.67, Anion Gap 13, Glomerular Filtra tion Rate 10.9L, Estimated Mean Plasma Glucose 100, Hemoglobin A1c 5.1, Calcium Level 7.4L, Triglycerides Level 41, Total Cholesterol 61, LDL Cholesterol 20, Non-HDL Cholesterol (LDL + VLDL) 28, Total HDL Cholesterol 33L, Cholesterol/HDL Ratio 1.848, Hepatitis B Surface Antigen NEGATIVE, Hepatitis B Surface Antibody NEGATIVE, Hepatitis B Core IgM Antibody NEGATIVE, Hepatitis C Antibody Index < 0.0 02/24/21 11:10: Bedside Glucose (Misc Panel) 141H CBC/BMP Laboratory Tests 02/24/21 06:15 FSBS Laboratory Tests Test 02/23/21 17:46 02/23/21 20:09 02/24/21 11:10 Range/Units Bedside Glucose (Misc Panel) 99 111 141 80-115 MG/DL Current Medications Current Medications Medications (Trade) Dose Ordered Sig/Wallace Route PRN Reason Start Time Stop Time Status Last Admin Dose Admin Acetaminophen (Tylenol Tab) 650 mg Q4H PRN PO MILD PAIN or TEMP > 101 02/20/21 20:00 02/20/21 22:37 DC Al Hydrox/Mg Hydrox/Simethicone (Mylanta) 30 ml DAILY PRN PO DYSPEPSIA 02/20/21 20:00 02/20/21 22:37 DC Dextrose (Dextrose 50%) 25 ml ASDIRECTED PRN IV SEE LABEL COMMENTS 02/20/21 23:25 Glucagon (Glucagon) 1 mg ASDIRECTED PRN SC SEE LABEL COMMENTS 02/20/21 23:25 Glucose (Glucose) 16 GM ASDIRECTED PRN PO SEE LABEL COMMENTS 02/20/21 23:25 Guaifenesin (Mucinex Tab Er) 600 mg BIDP PRN PO cough 02/21/21 04:30 Heparin Sodium (Heparin (Flush)) 200 units ASDIRECTED PRN IV SEE LABEL COMMENTS 02/23/21 19:05 02/24/21 02:24 Heparin Sodium (Heparin (Flush)) 200 units PICC IV 02/24/21 06:00 02/24/21 06:48 Heparin Sodium (Heparin Lock Flush 10units/ml) 10 units ASDIRECTED PRN IV SEE LABEL COMMENTS 02/21/21 03:05 02/23/21 18:51 DC 02/21/21 19:22 Heparin Sodium (Heparin Lock Flush 10units/ml) 10 units HLF IV 02/21/21 06:00 02/23/21 18:51 DC 02/23/21 06:18 Heparin Sodium (Heparin) Please refer to ... ASDIRECTED XX 02/24/21 06:00 02/25/21 05:59 Heparin Sodium (Heparin) dose as per volume indica... ASDIRECTED PRN IV SEE LABEL COMMENTS 02/24/21 06:00 02/24/21 22:19 Heparin Sodium (Porcine) (Heparin) 5,000 units Q12H SQ 02/21/21 09:00 02/22/21 21:40 Home Med (Home Med List Complete!) ASDIRECTED XX 02/20/21 19:20 02/20/21 19:23 DC Insulin Human Lispro (HumaLOG INSULIN) See Protocol Table AC SC 02/21/21 07:30 02/24/21 12:36 Insulin Human Lispro (HumaLOG INSULIN) See Protocol Table QHS SC 02/20/21 21:00 Linezolid (Zyvox) 600 mg BID PO 02/21/21 09:00 02/20/21 23:53 DC Magnesium Hydroxide (Milk Of Magnesia) 30 ml DAILY PRN PO CONSTIPATION 02/20/21 20:00 02/20/21 23:22 DC Midodrine (Proamatine) 5 mg TID@0800,1200,1600 PO 02/21/21 08:00 02/21/21 12:04 DC 02/21/21 08:43 Midodrine (Proamatine) 10 mg TID@0800,1200,1600 PO 02/21/21 12:00 02/24/21 12:36 Octreotide Acetate (SandoSTATIN) 100 mcg Q8H SC 02/21/21 00:00 02/24/21 16:40 DC 02/24/21 06:03 Omeprazole (PriLOSEC) 20 mg DAILY PO 02/21/21 09:00 02/24/21 06:02 Piperacillin Sod/ Tazobactam Sod 2.25 gm/Dextrose 50 ml @ 100 mls/hr Q8H IV 02/21/21 11:00 02/21/21 11:43 DC Piperacillin Sod/ Tazobactam Sod 2.25 gm/Dextrose 50 ml @ 100 mls/hr Q8H IV 02/21/21 17:00 02/28/21 23:59 02/24/21 06:04 Piperacillin Sod/ Tazobactam Sod 3.375 gm/Dextrose 50 ml @ 50 mls/hr Q6H IV 02/21/21 02:00 02/21/21 09:57 DC 02/21/21 08:44 Rifaximin (Xifaxan) 550 mg BID PO 02/20/21 22:40 02/24/21 06:03 Sodium Chloride 1,000 ml @ 100 mls/hr Q10H IV 02/20/21 18:50 02/20/21 19:12 DC Sodium Chloride (Saline Lock Flush) 10 ml ASDIRECTED PRN IV SEE LABEL COMMENTS 02/21/21 03:05 02/23/21 18:51 DC 02/21/21 19:22 Sodium Chloride (Saline Lock Flush) 10 ml ASDIRECTED PRN IV SEE LABEL COMMENTS 02/23/21 19:05 02/24/21 02:24 Sodium Chloride (Saline Lock Flush) 10 ml PICC IV 02/24/21 06:00 02/24/21 06:48 Sodium Chloride (Saline Lock Flush) 10 ml SLF IV 02/21/21 06:00 02/23/21 18:51 DC 02/23/21 06:18 Sucralfate (Carafate) 1 gm ACHS PO 02/20/21 21:00 02/24/21 16:41 DC 02/24/21 12:36 Sucralfate (Carafate) 1 gm BID PO 02/24/21 21:00 UNV Tamsulosin HCl (Flomax) 0.4 mg QHS PO 02/20/21 21:00 02/21/21 12:45 DC 02/21/21 02:45 Allergies Coded Allergies: No Known Allergies (Unverified , 01/08/18) Assessment/Plan Date Seen The patient was seen on 02/24/21 in AM at bedside. Plan / VTE VTE Prophylaxis Ordered?: Yes Plan Orders past 48 Hours Orders Fingerstick Blood Sugar (02/22/21 20:53) Immature Platelet Fraction (02/23/21 06:00) Furosemide Injection (Lasix Injection) (02/23/21 09:20) Surgical Consult (02/23/21 09:59) Provider Order Sheet (02/23/21 10:48) Fingerstick Blood Sugar (02/23/21 11:16) Renal Diet (02/23/21 Lunch) Prothrombin Time Profile\Inr (02/24/21 06:00) Picc Line Insertion W/Siterite (02/23/21 15:38) Dialysis Hepatitis Chem (02/24/21 06:00) Cardiac Risk Profile (02/24/21 06:00) Hemoglobin A1c (02/24/21 06:00) Hepatitis B Core Ab (Igg) (02/24/21 06:00) Fingerstick Blood Sugar (02/23/21 17:46) * Nursing Order * (02/23/21 18:54) Sodium Chloride Flush (Saline Lock Flush (02/24/21 06:00) Heparin (Flush) (Heparin (Flush)) (02/24/21 06:00) Heparin (Flush) (Heparin (Flush)) (02/23/21 19:05) Sodium Chloride Flush (Saline Lock Flush (02/23/21 19:05) Fingerstick Blood Sugar (02/23/21 20:09) Basic Metabolic Profile (02/24/21 06:00) Hemodialysis Acute Orders (02/24/21 06:00) Heparin (Heparin) (02/24/21 06:00) Heparin (Heparin) (02/24/21 06:00) Immature Platelet Fraction (02/24/21 06:15) Ir Fluoro Guidance (02/24/21 07:30) * Nursing Order * (02/24/21 09:16) Advance Diet As Tolerated (02/24/21 09:16) Renal Diet (02/24/21 Lunch) Fingerstick Blood Sugar (02/24/21 11:10) Pt Eval & Tx As Needed (02/24/21 13:24) Ot Eval & Treat As Needed (02/24/21 13:24) Sucralfate (Carafate) (02/24/21 21:00) Plan Text 1. Acute oliguric renal failure. Some improvement in UOP but Cr persistently high. continue midodrine, Stop octreotide and albumin infusions. start HD via Rt IJ tunneled HD catheter today. Another session of HD tomorrow. 2. Leukocytosis and recent bacteremia. He was recently treated for bacteremia and discharged from the hospital on February 17. He has been empirically started on IV Zosyn. 3. Decompensated FLOOD cirrhosis with tense ascites. s/p paracentesis~8.2L. Further fluid optimization with HD. start torsemide now. 4. Hyponatremia. The patient has hypervolemic hyponatremia. Na would improve with HD and fluid removal. 5. Heart failure with preserved ejection fraction, grade 1 diastolic dysfunction/Anasarca:Fluid removal with HD .start spironolactone and torsemide. JOHANN SANTIAGO MD Feb 24, 2021 16:55
--- NOTE | 2021-02-24 18:26 | REP ---
PROCEDURE NAME: PICC LINE INSERTION W/SITERITE CLINICAL INFORMATION: poor access. COMPARISON: None. PROCEDURE DESCRIPTION: The procedure was performed by THANH Meadows, under the direct supervision of Dr. Kern. The risks and benefits of the procedure were explained to the patient and an informed consent was obtained both verbally and written. Directly prior to the start of the procedure a formal time-out was completed in the procedure room. The left lateral brachial vein was localized using ultrasound guidance. The skin was prepped and draped in sterile fashion. One mL of 1% lidocaine 10 mg/mL was used as a local anesthetic. Using ultrasound guidance the left lateral brachial vein was cannulated, and a 0.018 guidewire was inserted and advanced to the level of SVC using fluoroscopic guidance. The needle was removed and a 5.5 Yi dilator and peel-away sheath was inserted over the guidewire. A 5.5 Yi dual lumen catheter was cut to a length of 45 cm. The dilator was removed and the catheter was inserted over the guidewire with the tip ending at the level of the SVC. The peel-away sheath was removed and the catheter was flushed with heparinized saline as per hospital protocol. The catheter was affixed to the skin and a sterile dressing was applied. The patient tolerated the procedure well and there were no immediate complications. CONCLUSION: PICC line insertion into the left lateral brachial vein. 0.1 minutes of fluoroscopy time was utilized for this procedure. Some fluoroscopic images are performed with last image hold technology. These images require no additional radiation. <Electronically signed by Abeba Alcocer > 02/23/21 [id number] <Electronically signed by Eleno Kern > 02/24/21 [id number]
[2021-02-24] MEDS ORDERED: NS IV ONE (19:00)
[2021-02-24] MEDS ORDERED: PHYTONADIONE IV ONE (19:00)
[2021-02-24 22:00] VITALS: BP 100/55
[2021-02-25] VITALS (9 sets, daily range): BP systolic 76–108; BP diastolic 48–66
[2021-02-25] MEDS: PIPERACILLIN/TAZOBACTAM SOD 2.25 GM in D5W MINI-BAG PLUS 50 ML IV SCH ×3 (01:51→18:07)
[2021-02-25] MEDS: rifAXIMin 550 MG TAB (XIFAXAN) PO SCH ×2 (06:45→20:01)
[2021-02-25] MEDS: MIDODRINE 5 MG TAB PO SCH ×3 (06:45→15:57)
[2021-02-25] MEDS: OMEPRAZOLE 20 MG CAP PO SCH (06:45)
[2021-02-25] MEDS: SUCRALFATE 1 GM TAB PO SCH ×2 (06:46→20:01)
[2021-02-25] MEDS: HEPARIN SOD (PORCINE) 5000UNITS/ML 1ML VIAL/SYRINGE SQ SCH ×2 (06:46→20:02)
[2021-02-25 07:29] LABS: BASO % 0.3 % (0.0-1.0); HEMATOCRIT 28.3 % (42.0-52.0); LYMPH # 1.8 10^3/uL (1.5-5.0); LYMPH % 16.4 % (24.0-44.0); MEAN CORPUSCULAR HEMOGLOBIN 30.8 pg (27.0-33.0); MEAN CORPUSCULAR HGB CONC 35.3 g/dl (32.0-36.5); MEAN CORPUSCULAR VOLUME 87.1 fl (80.0-96.0); MONO # 0.5 10^3/uL (0.0-0.8); MONO % 4.3 % (2.0-8.0); NEUTROPHILS # 8.7 10^3/uL (1.5-8.5); NEUTROPHILS % 78.5 % (36.0-66.0); RED BLOOD COUNT 3.25 10^6/uL (4.30-6.10)
[2021-02-25] MEDS: HumaLOG INSULIN (NovoLOG) PER UNIT SC SCH ×4 (07:30→20:02)
[2021-02-25 07:47] LABS: CALCIUM LEVEL 7.6 MG/DL (8.8-10.2); CREATININE FOR GFR 4.79 MG/DL (0.70-1.30); GLOMERULAR FILTRATION RATE 13.1 (>49); POTASSIUM SERUM 3.3 MEQ/L (3.5-5.1)
[2021-02-25 08:05] LABS: PLATELET COUNT, AUTOMATED 30 10^3/uL (150-450)
[2021-02-25] MEDS ORDERED: SPIRONOLACTONE 50 MG TAB PO SCH (09:00)
[2021-02-25] MEDS ORDERED: TORSEMIDE 20 MG TAB PO SCH (09:00)
[2021-02-25] MEDS: SODIUM CHLORIDE 0.9% INJ 10 ML SYR IV SCH ×2 (10:08→18:00)
[2021-02-25 10:54] LABS: INR 1.59; PROTHROMBIN TIME 19.4 SECONDS (12.7-14.5)
[2021-02-25 10:55] LABS: PARTIAL THROMBOPLASTIN TIME 44.8 SECONDS (25.9-37.0)
--- NOTE | 2021-02-25 15:16 | IPNPDOC ---
Text Note Date of Service The patient was seen on 02/25/21. NOTE Subjective: Patient is a 66-year-old male presents with massive pedal edema and ascites received paracentesis 3 days ago. Is feeling tired today. Patient received dialysis for the first time yesterday. Patient has been having some low blood pressures but is otherwise feeling well today. Review of systems: General: Patient denies fevers HEENT: Patient denies headaches Cardiovascular: Patient denies chest pain Respiratory: Patient denies shortness of breath, cough GI: Patient reports improvement in his abdominal pain. Patient denies nausea, vomiting, diarrhea : Patient denies increased frequency or pain with urination Extremities: Patient reports swelling in bilateral lower extremities Neurological: Patient denies numbness or tingling in legs Physical exam: Vitals: See below General: Alert and oriented male patient who was laying in bed sleeping when I walked in. Patient easily awoken not appear to be in any acute distress. HEENT: Normocephalic, atraumatic, moist mucous membranes. Neck: No lymphadenopathy or thyromegaly Cardiac: Regular rate and rhythm, no murmurs, normal S1, normal S2 Pulm: Clear to auscultation bilaterally. No wheezes, rhonchi, rales Abd: Minimally distended, nontender to palpation, normal bowel sounds Ext: 3+ edema up to the level of the hips bilaterally. Labs: See below Imaging: No new imaging is been performed Assessment/plan: 66-year-old male with a history of decompensated Avalos cirrhosis complicated by hepatic encephalopathy, recurrent ascites, chronic hyper verbal bulimic hyponatremia who came to the emergency department with oliguric renal failure 1. Oliguric renal failure. Patient was started on dialysis yesterday. Patient was given midodrine, albumin, octreotide and a dose of IV Lasix but did not increase his urine output. Patient received tunneled dialysis catheter and receive dialysis today. If patient is having difficulty with dialysis, patient will need to have discussion about further goals of care as if dialysis is unable to be performed, we will be unable to treat the patient's renal failure. 2. Decompensated liver cirrhosis secondary to Avalos with ascites. I spoke with Tanisha from [facility] [place] yesterday. I will reach out again tomorrow. Patient's meld score is 30. Continue with dialysis. 3. Diarrhea. On antibiotics. GI panel negative. Continue to monitor. 4. Lactic acidosis secondary to dehydration plus/minus reduced hepatic clearance. Continue to monitor. 5. Recurrent bacteremia. Blood cultures negative. On Zosyn. 6. Sarcopenia/deconditioning. Due to chronic medical disease. OT and PT are ordered. 7. Chronic anemia. Recent upper GI bleed secondary to AVMs. Monitor hemoglobin hematocrit. These have been stable at this time. 8. Chronic hypotension. Continue with midodrine. 9. Chronic heart failure with preserved ejection fraction. Appears hypervolemic today. Fluid removal with dialysis. 10. [id number] diabetes mellitus. Consistent carbohydrate diet. 11. History of pancreatic cancer status post Whipple procedure 2016. 12. ESBL Klebsiella on sputum culture. Continue IV Zosyn. Received 7 days of IV Zosyn. 13. Thrombocytopenia. Patient received a unit of platelets today DVT Prophylaxis: Heparin Disposition: Pending clinical improvement VS,Jim, I+O VS, Jim, I+O Laboratory Tests 02/25/21 07:14 Vital Signs Date Time Temp Pulse Resp B/P (MAP) Pulse Ox O2 Delivery O2 Flow Rate FiO2 02/25/21 14:00 97.4 61 18 108/66 (80) 98 Room Air 02/24/21 08:40 2.0 I&O- Last 24 Hours up to 6 AM 02/25/21 06:00 Intake Total 660 ml Output Total 1350 ml Balance -690 ml GUALBERTO ALBERT DO Feb 25, 2021 15:16
--- NOTE | 2021-02-25 21:43 | IPNPDOC ---
Text Note Date of Service The patient was seen on 02/25/21, at 9.30 pm. VS,Georgibone, I+O VS, Fishbone, I+O Laboratory Tests 02/25/21 07:14 Vital Signs Date Time Temp Pulse Resp B/P (MAP) Pulse Ox O2 Delivery O2 Flow Rate FiO2 02/25/21 20:12 98.0 60 16 82/48 (59) 99 Room Air 02/24/21 08:40 2.0 I&O- Last 24 Hours up to 6 AM 02/25/21 06:00 Intake Total 660 ml Output Total 1350 ml Balance -690 ml Jade Downing MD Feb 25, 2021 21:43
[2021-02-25] MEDS ORDERED: VANCOMYCIN HCL 1,000 MG, VIAL MATE ADAPTER 1 EACH in NS 250 ML IV ONE (21:50)
--- NOTE | 2021-02-25 21:59 | IPNPDOC ---
Subjective CC/HPI The patient is a 66-year-old male admitted with a reason for visit of Venancio, Ascites. Events since last encounter Pt was examined at bedside. He was dialyzed for the first time yesterday. 1L fluid was removed. He had very low BP during HD. He also made urine. UOP was 1L. General: Reports: Fatigue, Malaise; Denies: Chills, Normal Appetite Constitutional: Reports: Malaise, Weakness; Denies: Chills, Fever Eyes: Denies: Pain, Vision change ENT: Denies: Head Aches, Ear Pain Skin: Denies: Rash, Lesions Pulmonary: Denies: Dyspnea, Cough Gastrointestinal: Reports: Other Symptoms (Ascites); Denies: Nausea, Vomiting Genitourinary: Denies: Other Symptoms (Indwelling Rivera) Hematologic: Denies: Bruising, Bleeding Excessively Musculoskeletal: Denies: Neck Pain, Back Pain Neurological: Reports: Weakness Psych: Reports: Depression Objective Physical Examination General Exam: Alert, Mild Distress (weak and lethargic) EYE EXAM: PERRLA, EOMI, Sclera icteric ENT EXAM: Atraumatic, Mucous membr. moist/pink, Other ENT (Rt IJ tunneled HD catheter) Neck Exam: Supple, JVD Chest Exam: Clear to auscultation, Other (Decreased BS at bases.) Heart Exam: Rate Normal, Normal S1, Normal S2; No: Murmurs, Rubs ABDOMEN EXAM: Normal bowel sounds, Other (Mild ascites) Male Exam: No: Normal Genital Exam (Rivera catheter with small amount of dark urine in bag.) Extremity Exam: Clubbing, Edema (2+ edema of thighs. 1+ edema legs) Skin Exam: Nl turgor and temperature Neuro Exam: Normal Speech, Strength at 5/5 X4 ext Psych Exam: Mental status NL, Oriented x 3; No: Mood NL (Depressed) Vital Signs/I&O Vital Signs Date Time Temp Pulse Resp B/P (MAP) Pulse Ox O2 Delivery O2 Flow Rate FiO2 02/25/21 20:12 98.0 60 16 82/48 (59) 99 Room Air 02/24/21 08:40 2.0 I&O- Last 24 Hours up to 6 AM 02/25/21 06:00 Intake Total 660 ml Output Total 1350 ml Balance -690 ml Laboratory Data Labs 24H Laboratory Tests 2 02/25/21 07:14: Immature Granulocyte % (Auto) 0.5, Neutrophils (%) (Auto) 78.5H, Lymphocytes (%) (Auto) 16.4L, Monocytes (%) (Auto) 4.3, Eosinophils (%) (Auto) 0.0, Basophils (%) (Auto) 0.3, Neutrophils # (Auto) 8.7H, Lymphocytes # (Auto) 1.8, Monocytes # (Auto) 0.5, Eosinophils # (Auto) 0.0, Basophils # (Auto) 0.0, Nucleated Red Blood Cells % (auto) 0.0, Immature Platelet Fraction 2.9, Anion Gap 12, Glomerular Filtration Rate 13.1L, Calcium Level 7.6L 02/25/21 10:20: Prothrombin Time 19.4H, Prothromb Time International Ratio 1.59, Activated Partial Thromboplast Time 44.8H 02/25/21 11:38: Bedside Glucose (Misc Panel) 177H 02/25/21 16:51: Bedside Glucose (Misc Panel) 81 02/25/21 19:43: Bedside Glucose (Misc Panel) 106 CBC/BMP Laboratory Tests 02/25/21 07:14 FSBS Laboratory Tests Test 02/25/21 11:38 02/25/21 16:51 02/25/21 19:43 Range/Units Bedside Glucose (Misc Panel) 177 81 106 80-115 MG/DL Current Medications Current Medications Medications (Trade) Dose Ordered Sig/Wallace Route PRN Reason Start Time Stop Time Status Last Admin Dose Admin Acetaminophen (Tylenol Tab) 650 mg Q4H PRN PO MILD PAIN or TEMP > 101 02/20/21 20:00 02/20/21 22:37 DC Al Hydrox/Mg Hydrox/Simethicone (Mylanta) 30 ml DAILY PRN PO DYSPEPSIA 02/20/21 20:00 02/20/21 22:37 DC Dextrose (Dextrose 50%) 25 ml ASDIRECTED PRN IV SEE LABEL COMMENTS 02/20/21 23:25 Glucagon (Glucagon) 1 mg ASDIRECTED PRN SC SEE LABEL COMMENTS 02/20/21 23:25 Glucose (Glucose) 16 GM ASDIRECTED PRN PO SEE LABEL COMMENTS 02/20/21 23:25 Guaifenesin (Mucinex Tab Er) 600 mg BIDP PRN PO cough 02/21/21 04:30 Heparin Sodium (Heparin (Flush)) 200 units ASDIRECTED PRN IV SEE LABEL COMMENTS 02/23/21 19:05 02/24/21 02:24 Heparin Sodium (Heparin (Flush)) 200 units PICC IV 02/24/21 06:00 02/24/21 17:11 Heparin Sodium (Heparin Lock Flush 10units/ml) 10 units ASDIRECTED PRN IV SEE LABEL COMMENTS 02/21/21 03:05 02/23/21 18:51 DC 02/21/21 19:22 Heparin Sodium (Heparin Lock Flush 10units/ml) 10 units HLF IV 02/21/21 06:00 02/23/21 18:51 DC 02/23/21 06:18 Heparin Sodium (Heparin) Please refer to ... ASDIRECTED XX 02/24/21 06:00 02/25/21 05:59 DC Heparin Sodium (Heparin) Please refer to ... ASDIRECTED XX 02/25/21 08:05 02/26/21 08:04 Heparin Sodium (Heparin) dose as per volume indica... ASDIRECTED PRN IV SEE LABEL COMMENTS 02/24/21 06:00 02/24/21 22:19 DC Heparin Sodium (Heparin) dose as per volume indica... ASDIRECTED PRN IV SEE LABEL COMMENTS 02/25/21 08:05 02/26/21 08:04 Heparin Sodium (Porcine) (Heparin) 5,000 units Q12H SQ 02/21/21 09:00 02/22/21 21:40 Home Med (Home Med List Complete!) ASDIRECTED XX 02/20/21 19:20 02/20/21 19:23 DC Insulin Human Lispro (HumaLOG INSULIN) See Protocol Table AC SC 02/21/21 07:30 02/25/21 12:09 Insulin Human Lispro (HumaLOG INSULIN) See Protocol Table QHS SC 02/20/21 21:00 Linezolid (Zyvox) 600 mg BID PO 02/21/21 09:00 02/20/21 23:53 DC Magnesium Hydroxide (Milk Of Magnesia) 30 ml DAILY PRN PO CONSTIPATION 02/20/21 20:00 02/20/21 23:22 DC Midodrine (Proamatine) 5 mg TID@0800,1200,1600 PO 02/21/21 08:00 02/21/21 12:04 DC 02/21/21 08:43 Midodrine (Proamatine) 10 mg TID@0800,1200,1600 PO 02/21/21 12:00 02/25/21 08:05 DC 02/25/21 06:45 Midodrine (Proamatine) 15 mg TID@0800,1200,1600 PO 02/25/21 12:00 02/25/21 15:57 Octreotide Acetate (SandoSTATIN) 100 mcg Q8H SC 02/21/21 00:00 02/24/21 16:40 DC 02/24/21 06:03 Omeprazole (PriLOSEC) 20 mg DAILY PO 02/21/21 09:00 02/25/21 06:45 Piperacillin Sod/ Tazobactam Sod 2.25 gm/Dextrose 50 ml @ 100 mls/hr Q8H IV 02/21/21 11:00 02/21/21 11:43 DC Piperacillin Sod/ Tazobactam Sod 2.25 gm/Dextrose 50 ml @ 100 mls/hr Q8H IV 02/21/21 17:00 02/28/21 23:59 02/25/21 18:07 Piperacillin Sod/ Tazobactam Sod 3.375 gm/Dextrose 50 ml @ 50 mls/hr Q6H IV 02/21/21 02:00 02/21/21 09:57 DC 02/21/21 08:44 Rifaximin (Xifaxan) 550 mg BID PO 02/20/21 22:40 02/25/21 20:01 Sodium Chloride 1,000 ml @ 100 mls/hr Q10H IV 02/20/21 18:50 02/20/21 19:12 DC Sodium Chloride (Saline Lock Flush) 10 ml ASDIRECTED PRN IV SEE LABEL COMMENTS 02/21/21 03:05 02/23/21 18:51 DC 02/21/21 19:22 Sodium Chloride (Saline Lock Flush) 10 ml ASDIRECTED PRN IV SEE LABEL COMMENTS 02/23/21 19:05 02/24/21 02:24 Sodium Chloride (Saline Lock Flush) 10 ml PICC IV 02/24/21 06:00 02/25/21 10:08 Sodium Chloride (Saline Lock Flush) 10 ml SLF IV 02/21/21 06:00 02/23/21 18:51 DC 02/23/21 06:18 Spironolactone (Aldactone) 50 mg DAILY PO 02/25/21 09:00 Sucralfate (Carafate) 1 gm ACHS PO 02/20/21 21:00 02/24/21 16:41 DC 02/24/21 12:36 Sucralfate (Carafate) 1 gm BID PO 02/24/21 21:00 02/25/21 20:01 Tamsulosin HCl (Flomax) 0.4 mg QHS PO 02/20/21 21:00 02/21/21 12:45 DC 02/21/21 02:45 Torsemide (Demadex) 40 mg QAM PO 02/25/21 09:00 Allergies Coded Allergies: No Known Allergies (Unverified , 01/08/18) Assessment/Plan Date Seen The patient was seen on 02/25/21 in AM at bedside. Plan / VTE VTE Prophylaxis Ordered?: Yes Plan Orders past 48 Hours Orders Hemodialysis Acute Orders (02/24/21 06:00) Heparin (Heparin) (02/24/21 06:00) Heparin (Heparin) (02/24/21 06:00) * Nursing Order * (02/24/21 09:16) Advance Diet As Tolerated (02/24/21 09:16) Renal Diet (02/24/21 Lunch) Fingerstick Blood Sugar (02/24/21 11:10) Pt Eval & Tx As Needed (02/24/21 13:24) Ot Eval & Treat As Needed (02/24/21 13:24) Sucralfate (Carafate) (02/24/21 21:00) Spironolactone (Aldactone) (02/25/21 09:00) Torsemide (Demadex) (02/25/21 09:00) Fingerstick Blood Sugar (02/24/21 17:51) * Nursing Order * (02/24/21 18:31) Phytonadione Injection (Vitamin K Inject (02/24/21 19:00) Fingerstick Blood Sugar (02/24/21 20:48) Midodrine Hcl (Proamatine) (02/25/21 12:00) Immature Platelet Fraction (02/25/21 07:14) Vs Q15m Icu/Pcu,Q30m M/S Hd (02/25/21 08:04) Hemodialysis Acute Orders (02/25/21 08:04) Heparin (Heparin) (02/25/21 08:05) Heparin (Heparin) (02/25/21 08:05) Early Tray (02/25/21 11:00) Transfuse Platelets (02/25/21 09:09) Pheresis Platelets (02/25/21 09:09) Prothrombin Time Profile\Inr (02/25/21 09:09) Partial Thromboplastin Time (02/25/21 09:09) * Nursing Order * (02/25/21 10:06) Fingerstick Blood Sugar (02/25/21 11:38) Fentanyl Citrate (Sublimaze) (02/24/21 07:20) Heparin (Flush) (Heparin (Flush)) (02/24/21 08:54) Heparin Flush Bag (Heparin Flush Bag) (02/24/21 06:44) Heparin (Heparin) (02/24/21 06:44) Lidocaine 1% Mdv 20ml (Lidocaine 1% Mdv (02/24/21 06:44) Lidocaine 1% Mdv 20ml (Lidocaine 1% Mdv (02/24/21 08:14) Fingerstick Blood Sugar (02/25/21 16:51) Fingerstick Blood Sugar (02/25/21 19:43) Albumin 25% (02/25/21 20:11) Administer Albumin 25% (02/25/21 ) Plan Text 1. Acute oliguric renal failure: First session of HD done yesterday. Second session tried today but his BP dropped significantly and we had to stop HD. Pt is getting septic due to intraabdominal infection. 2.Sepsis sec to Staph Hominis SBP and ESBL Klebsiella in Sputum: Cont IV Zosyn. start Vanco for SBP coverage. Start Albumin 25%, 25 gram IV Q 8hr. Restart octreotide SQ. Check lactic acid level. 3. Decompensated FLOOD cirrhosis with ascites. s/p paracentesis~8.2L. Stop di uretics now since BP is low.. 4. Heart failure with preserved ejection fraction, grade 1 diastolic dysfunction/Anasarca:Diuretics being stopped due to sepsis and hypotension JOHANN SANTIAGO MD Feb 25, 2021 21:59
[2021-02-25] MEDS: OCTREOTIDE ACETATE 100MCG/ML VIAL **IV ADMINISTRATION ONLY SC SCH (23:28)
[2021-02-26] VITALS (9 sets, daily range): BP systolic 82–97; BP diastolic 48–60
[2021-02-26] MEDS ORDERED: NS 500 ML IV ONE
[2021-02-26] MEDS: PIPERACILLIN/TAZOBACTAM SOD 2.25 GM in D5W MINI-BAG PLUS 50 ML IV SCH ×3 (00:56→17:27)
[2021-02-26 04:00] LABS: BASO % 0.4 % (0.0-1.0); EOS % 0.3 % (0.0-3.0); HEMATOCRIT 25.1 % (42.0-52.0); HEMOGLOBIN 8.9 g/dl (13.5-17.5); LYMPH # 2.1 10^3/uL (1.5-5.0); LYMPH % 22.2 % (24.0-44.0); MEAN CORPUSCULAR HEMOGLOBIN 30.9 pg (27.0-33.0); MEAN CORPUSCULAR HGB CONC 35.5 g/dl (32.0-36.5); MEAN CORPUSCULAR VOLUME 87.2 fl (80.0-96.0); MONO # 0.5 10^3/uL (0.0-0.8); NEUTROPHILS # 6.7 10^3/uL (1.5-8.5); NEUTROPHILS % 71.8 % (36.0-66.0); RED BLOOD COUNT 2.88 10^6/uL (4.30-6.10); WHITE BLOOD COUNT 9.3 10^3/uL (4.0-10.0)
[2021-02-26 04:02] LABS: PLATELET COUNT, AUTOMATED 27 10^3/uL (150-450)
[2021-02-26 04:19] LABS: CALCIUM LEVEL 7.1 MG/DL (8.8-10.2); CREATININE FOR GFR 4.54 MG/DL (0.70-1.30); POTASSIUM SERUM 3.1 MEQ/L (3.5-5.1)
[2021-02-26] MEDS ORDERED: VANCOMYCIN INTERMITTENT/PULSE DOSING BY CLINICAL PHARMACIST PER DOSING PROTOCOL XX SCH (06:05)
[2021-02-26] MEDS: SODIUM CHLORIDE 0.9% INJ 10 ML SYR IV SCH ×2 (06:09→17:27)
[2021-02-26 06:32] LABS: VANCOMYCIN RANDOM 22.2 UG/ML
[2021-02-26] MEDS: OCTREOTIDE ACETATE 100MCG/ML VIAL **IV ADMINISTRATION ONLY SC SCH ×3 (07:08→22:06)
[2021-02-26] MEDS: HumaLOG INSULIN (NovoLOG) PER UNIT SC SCH ×4 (08:40→20:29)
[2021-02-26] MEDS: OMEPRAZOLE 20 MG CAP PO SCH (09:14)
[2021-02-26] MEDS: rifAXIMin 550 MG TAB (XIFAXAN) PO SCH ×2 (09:14→22:06)
[2021-02-26] MEDS: MIDODRINE 5 MG TAB PO SCH ×3 (09:15→15:05)
[2021-02-26] MEDS: SUCRALFATE 1 GM TAB PO SCH ×2 (09:15→22:06)
[2021-02-26] MEDS ORDERED: POTASSIUM CHLORIDE 10MEQ SR TABLET PO ONE (10:30)
[2021-02-26] MEDS ORDERED: **VANCO AFTER HD** MISC XX SCH (16:00)
[2021-02-26] MEDS ORDERED: VANCOMYCIN HCL 750 MG in NS 250 ML IV SCH (16:00)
--- NOTE | 2021-02-26 16:20 | IPNPDOC ---
Text Note Date of Service The patient was seen on 02/26/21. NOTE Subjective: Patient is a 66-year-old male presented with massive pedal edema and ascites received paracentesis 4 days ago. Patient is feeling tired today. Patient received dialysis with her son 2 days ago and but had low blood pressures. Patient does feel very tired and sick right now but does not have any complaints of pain at this time. Patient did have some low blood pressure that did require a small bolus of fluid and his increased dose of midodrine. Review of systems: General: Patient denies fevers HEENT: Patient denies headaches Cardiovascular: Patient denies chest pain Respiratory: Patient denies shortness of breath, cough GI: Patient reports improvement in his abdominal pain : Patient denies increased frequency or pain with urination Extremities: Patient denies swelling or pain in extremities Neurological: Patient denies numbness or tingling in legs Physical exam: Vitals: See below General: Alert and oriented male patient who was laying in bed when I walked in the room. Patient did not appear to be in any acute distress but did appear very fatigued. HEENT: Normocephalic, atraumatic, moist mucous membranes. Neck: No lymphadenopathy or thyromegaly Cardiac: Regular rate and rhythm, no murmurs, normal S1, normal S2 Pulm: Clear to auscultation bilaterally. No wheezes, rhonchi, rales Abd: Minimally distended, nontender to palpation, normal bowel sounds Ext: 1+ pitting edema level of the knee bilaterally Labs: See below Imaging: No new imaging is been performed Assessment/plan: 66-year-old male with history of decompensated Avalos cirrhosis complicated by hepatic encephalopathy, recurrent ascites, chronic hypervolemic hyponatremia cam e in the emergency department with oliguric renal failure 1. Oliguric renal failure. Patient was started on dialysis 2 days ago but has been hypotensive. Patient's urine output has picked up a little bit. Patient will continue with albumin and octreotide. If the patient continues to have difficulty with dialysis, and does not pharmacy picking technician his urine output, patient will most likely not be able to survive this hospitalization. I did have a conversation with the patient's and the patient earlier today about this. 2. Decompensated liver cirrhosis with Avalos and ascites. I spoke with [facility] transplant bird in hand 2 days ago. We will need to stabilize the patient more. I will reach out again on Monday. 3. Diarrhea. On antibiotics. GI panel negative. Continue to monitor. 4. Lactic acidosis. Patient had an elevated lactic acid. Patient's ascites did grow out staph hominis. This is not a usual pathogen for SBP but we will treat this at this time. 5. Recurrent bacteremia. Blood cultures have been negative. On Zosyn and vancomycin. 6. Sarcopenia/deconditioning. Due to chronic medical disease. PT and OT have been ordered. 7. Chronic anemia. Hemoglobin has been stable at this time. Continue to monitor. 8. Chronic hypotension. Continue with midodrine. Patient's worsening of his hypotension may be secondary to possible sepsis from SBP. We are treating this with vancomycin as it grew out staph hominis. We will continue to monitor the patient's blood pressures. If the patient's blood pressures do not improve enough to receive dialysis, patient may require comfort measures only. 9. Chronic heart failure preserved ejection fraction. Appears hypervolemic today. Will attempt dialysis if the blood pressures will allow for it. 10. [id number] diabetes mellitus. Consistent carbohydrate diet. 11. History pancreatic cancer status post [facility] in 2017. 12. ESBL Klebsiella on sputum culture. Continue IV Zosyn. Received 7 days tot al. 13. Thrombocytopenia. Transfuse platelets today. 14. Spontaneous bacterial peritonitis. Although the cell count did not correlate with his SBP, culture grew out staph hominis. We will treat with vancomycin. DVT Prophylaxis: Heparin on hold. Teds and sequentials Disposition: Pending clinical improvement VS,Jim, I+O VSJim, I+O Laboratory Tests 02/26/21 03:42 Vital Signs Date Time Temp Pulse Resp B/P (MAP) Pulse Ox O2 Delivery O2 Flow Rate FiO2 02/26/21 14:00 97.9 69 16 97/60 (72) 98 Room Air 02/24/21 08:40 2.0 I&O- Last 24 Hours up to 6 AM 02/26/21 06:00 Intake Total 1921.0 ml Output Total 150 ml Balance 1771.0 ml GUALBERTO ALBERT DO Feb 26, 2021 16:20
--- NOTE | 2021-02-26 22:59 | IPNPDOC ---
Subjective CC/HPI The patient is a 66-year-old male admitted with a reason for visit of Venancio, Ascites. Events since last encounter Pt was taken for HD yesterday but he because hypotensive and was not able to tolerate HD. HD was stopped. Lactic acid checked and it was high. He was givem NS 500 ml bolus. Peritoneal fluid came back positive for Staph Hominis so Vanco was started. He was also restarted on IV albumin and SQ Octreotide. He remains oliguric but Cr remains stable. He is awake but lethargic. Lactate improved today AM. General: Reports: Fatigue, Malaise; Denies: Chills, Night Sweats, Normal Appetite Constitutional: Reports: Malaise, Weakness; Denies: Chills, Fever Eyes: Denies: Pain, Vision change ENT: Denies: Head Aches, Ear Pain Skin: Denies: Rash, Lesions Pulmonary: Denies: Dyspnea, Cough Cardiovascular: Denies: Chest Pain, Palpitations Gastrointestinal: Reports: Other Symptoms (Cirrhosis and Ascites.); Denies: Nausea Genitourinary: Reports: Other Symptoms ([place] Rivera) Hematologic: Denies: Bruising, Bleeding Excessively Musculoskeletal: Denies: Neck Pain, Back Pain Neurological: Reports: Weakness Psych: Reports: Depression Objective Physical Examination General Exam: Alert, Mild Distress (weak and lethargic) EYE EXAM: PERRLA, EOMI, Sclera icteric ENT EXAM: Atraumatic, Mucous membr. moist/pink, Other ENT (Rt IJ tunneled HD ca theter) Neck Exam: Supple, JVD Chest Exam: Clear to auscultation, Other (Decreased BS at bases.) Heart Exam: Rate Normal, Normal S1, Normal S2; No: Murmurs, Rubs ABDOMEN EXAM: Normal bowel sounds, Other (Mild ascites) Male Exam: No: Normal Genital Exam (Rivera catheter with small amount of dark urine in bag.) Extremity Exam: Clubbing, Edema (1+ edema of thighs.trace edema legs) Skin Exam: Nl turgor and temperature Neuro Exam: Normal Speech, Strength at 5/5 X4 ext Psych Exam: Mental status NL, Oriented x 3; No: Mood NL (Depressed) Vital Signs/I&O Vital Signs Date Time Temp Pulse Resp B/P (MAP) Pulse Ox O2 Delivery O2 Flow Rate FiO2 02/26/21 20:04 98.9 57 18 92/53 99 Room Air 02/24/21 08:40 2.0 I&O- Last 24 Hours up to 6 AM 02/26/21 06:00 Intake Total 1921.0 ml Output Total 150 ml Balance 1771.0 ml Laboratory Data Labs 24H Laboratory Tests 2 02/26/21 03:42: Immature Granulocyte % (Auto) 0.3, Neutrophils (%) (Auto) 71.8H, Lymphocytes (%) (Auto) 22.2L, Monocytes (%) (Auto) 5.0, Eosinophils (%) (Auto) 0.3, Basophils (%) (Auto) 0.4, Neutrophils # (Auto) 6.7, Lymphocytes # (Auto) 2.1, Monocytes # (Auto) 0.5, Eosinophils # (Auto) 0.0, Basophils # (Auto) 0.0, Nucleated Red Blood Cells % (auto) 0.0, Anion Gap 10, Glomerular Filtration Rate 14.0L, Lactic Acid Followup at 4 Hours 1.6, Calcium Level 7.1L, Random Vancomycin Level 22.2 02/26/21 11:47: Bedside Glucose (Misc Panel) 186H 02/26/21 16:43: Bedside Glucose (Misc Panel) 133H 02/26/21 20:25: Bedside Glucose (Misc Panel) 144H CBC/BMP Laboratory Tests 02/26/21 03:42 FSBS Laboratory Tests Test 02/26/21 11:47 02/26/21 16:43 02/26/21 20:25 Range/Units Bedside Glucose (Misc Panel) 186 133 144 80-115 MG/DL Current Medications Current Medications Medications (Trade) Dose Ordered Sig/Wallace Route PRN Reason Start Time Stop Time Status Last Admin Dose Admin Acetaminophen (Tylenol Tab) 650 mg Q4H PRN PO MILD PAIN or TEMP > 101 02/20/21 20:00 02/20/21 22:37 DC Al Hydrox/Mg Hydrox/Simethicone (Mylanta) 30 ml DAILY PRN PO DYSPEPSIA 02/20/21 20:00 02/20/21 22:37 DC Dextrose (Dextrose 50%) 25 ml ASDIRECTED PRN IV SEE LABEL COMMENTS 02/20/21 23:25 Glucagon (Glucagon) 1 mg ASDIRECTED PRN SC SEE LABEL COMMENTS 02/20/21 23:25 Glucose (Glucose) 16 GM ASDIRECTED PRN PO SEE LABEL COMMENTS 02/20/21 23:25 Guaifenesin (Mucinex Tab Er) 600 mg BIDP PRN PO cough 02/21/21 04:30 Heparin Sodium (Heparin (Flush)) 200 units ASDIRECTED PRN IV SEE LABEL COMMENTS 02/23/21 19:05 02/26/21 13:30 DC 02/24/21 02:24 Heparin Sodium (Heparin (Flush)) 200 units PICC IV 02/24/21 06:00 02/26/21 13:30 DC 02/24/21 17:11 Heparin Sodium (Heparin Lock Flush 10units/ml) 10 units ASDIRECTED PRN IV SEE LABEL COMMENTS 02/21/21 03:05 02/23/21 18:51 DC 02/21/21 19:22 Heparin Sodium (Heparin Lock Flush 10units/ml) 10 units HLF IV 02/21/21 06:00 02/23/21 18:51 DC 02/23/21 06:18 Heparin Sodium (Heparin) Please refer to ... ASDIRECTED XX 02/24/21 06:00 02/25/21 05:59 DC Heparin Sodium (Heparin) Please refer to ... ASDIRECTED XX 02/25/21 08:05 02/26/21 08:04 DC Heparin Sodium (Heparin) dose as per volume indica... ASDIRECTED PRN IV SEE LABEL COMMENTS 02/24/21 06:00 02/24/21 22:19 DC Heparin Sodium (Heparin) dose as per volume indica... ASDIRECTED PRN IV SEE LABEL COMMENTS 02/25/21 08:05 02/26/21 08:04 DC Heparin Sodium (Porcine) (Heparin) 5,000 units Q12H SQ 02/21/21 09:00 02/26/21 08:47 DC 02/22/21 21:40 Home Med (Home Med List Complete!) ASDIRECTED XX 02/20/21 19:20 02/20/21 19:23 DC Insulin Human Lispro (HumaLOG INSULIN) See Protocol Table AC SC 02/21/21 07:30 02/25/21 12:09 Insulin Human Lispro (HumaLOG INSULIN) See Protocol Table QHS SC 02/20/21 21:00 Linezolid (Zyvox) 600 mg BID PO 02/21/21 09:00 02/20/21 23:53 DC Magnesium Hydroxide (Milk Of Magnesia) 30 ml DAILY PRN PO CONSTIPATION 02/20/21 20:00 02/20/21 23:22 DC Midodrine (Proamatine) 5 mg TID@0800,1200,1600 PO 02/21/21 08:00 02/21/21 12:04 DC 02/21/21 08:43 Midodrine (Proamatine) 10 mg TID@0800,1200,1600 PO 02/21/21 12:00 02/25/21 08:05 DC 02/25/21 06:45 Midodrine (Proamatine) 15 mg TID@0800,1200,1600 PO 02/25/21 12:00 02/26/21 15:05 Non-Formulary Medication ( See Comment Field Below ) CHECK TO SEE IF THE PATIENT... DAILY@1600 XX 02/26/21 16:00 Non-Formulary Medication ( See Comment Field Below ) [facility] ASD[facility] 02/26/21 06:05 02/26/21 12:11 DC Octreotide Acetate (SandoSTATIN) 100 mcg Q8H SC 02/21/21 00:00 02/24/21 16:40 DC 02/24/21 06:03 Octreotide Acetate (SandoSTATIN) 100 mcg Q8H SC 02/25/21 22:00 02/26/21 22:06 Omeprazole (PriLOSEC) 20 mg DAILY PO 02/21/21 09:00 02/26/21 09:14 Piperacillin Sod/ Tazobactam Sod 2.25 gm/Dextrose 50 ml @ 100 mls/hr Q8H IV 02/21/21 11:00 02/21/21 11:43 DC Piperacillin Sod/ Tazobactam Sod 2.25 gm/Dextrose 50 ml @ 100 mls/hr Q8H IV 02/21/21 17:00 02/28/21 23:59 02/26/21 17:27 Piperacillin Sod/ Tazobactam Sod 3.375 gm/Dextrose 50 ml @ 50 mls/hr Q6H IV 02/21/21 02:00 02/21/21 09:57 DC 02/21/21 08:44 Rifaximin (Xifaxan) 550 mg BID PO 02/20/21 22:40 02/26/21 22:06 Sodium Chloride 1,000 ml @ 100 mls/hr Q10H IV 02/20/21 18:50 02/20/21 19:12 DC Sodium Chloride (Saline Lock Flush) 10 ml ASDIRECTED PRN IV SEE LABEL COMMENTS 02/21/21 03:05 02/23/21 18:51 DC 02/21/21 19:22 Sodium Chloride (Saline Lock Flush) 10 ml ASDIRECTED PRN IV SEE LABEL COMMENTS 02/23/21 19:05 02/24/21 02:24 Sodium Chloride (Saline Lock Flush) 10 ml PICC IV 02/24/21 06:00 02/26/21 17:27 Sodium Chloride (Saline Lock Flush) 10 ml SLF IV 02/21/21 06:00 02/23/21 18:51 DC 02/23/21 06:18 Spironolactone (Aldactone) 50 mg DAILY PO 02/25/21 09:00 02/25/21 21:49 DC Sucralfate (Carafate) 1 gm ACHS PO 02/20/21 21:00 02/24/21 16:41 DC 02/24/21 12:36 Sucralfate (Carafate) 1 gm BID PO 02/24/21 21:00 02/26/21 22:06 Tamsulosin HCl (Flomax) 0.4 mg QHS PO 02/20/21 21:00 02/21/21 12:45 DC 02/21/21 02:45 Torsemide (Demadex) 40 mg QAM PO 02/25/21 09:00 02/25/21 21:58 DC Vancomycin HCl 750 mg/IV Miscellaneous Supplies 1 each/ Sodium Chloride 275 ml @ 275 mls/hr HD IV 02/27/21 16:00 02/26/21 14:05 DC Vancomycin HCl 750 mg/Sodium Chloride 265 ml @ 265 mls/hr HD IV 02/26/21 16:00 02/26/21 12:04 DC Allergies Coded Allergies: No Known Allergies (Unverified , 01/08/18) Assessment/Plan Date Seen The patient was seen on 02/26/21 at bedside in AM. Plan / VTE VTE Prophylaxis Ordered?: Yes Plan Orders past 48 Hours Orders Midodrine Hcl (Proamatine) (02/25/21 12:00) Vs Q15m Icu/Pcu,Q30m M/S Hd (02/25/21 08:04) Hemodialysis Acute Orders (02/25/21 08:04) Heparin (Heparin) (02/25/21 08:05) Heparin (Heparin) (02/25/21 08:05) Early Tray (02/25/21 11:00) Transfuse Platelets (02/25/21 09:09) Pheresis Platelets (02/25/21 09:09) Prothrombin Time Profile\Inr (02/25/21 09:09) Partial Thromboplastin Time (02/25/21 09:09) * Nursing Order * (02/25/21 10:06) Fingerstick Blood Sugar (02/25/21 11:38) Fentanyl Citrate (Sublimaze) (02/24/21 07:20) Heparin (Flush) (Heparin (Flush)) (02/24/21 08:54) Heparin Flush Bag (Heparin Flush Bag) (02/24/21 06:44) Heparin (Heparin) (02/24/21 06:44) Lidocaine 1% Mdv 20ml (Lidocaine 1% Mdv (02/24/21 06:44) Lidocaine 1% Mdv 20ml (Lidocaine 1% Mdv (02/24/21 08:14) Fingerstick Blood Sugar (02/25/21 16:51) Fingerstick Blood Sugar (02/25/21 19:43) Albumin 25% (02/25/21 20:11) Administer Albumin 25% (02/25/21 ) Vancomycin Hcl (Vancomycin Hcl)... (02/25/21 21:50) Pharmacy Vancomycin Consult (02/25/21 21:49) Octreotide Acetate (Sandostatin) (02/25/21 22:00) Administer Albumin 25% (02/25/21 21:53) Albumin 25% (02/26/21 05:53) Albumin 25% (02/26/21 13:53) Albumin 25% (02/26/21 21:53) Albumin 25% (02/27/21 05:53) Albumin 25% (02/27/21 13:53) Albumin 25% (02/27/21 21:53) Albumin 25% (02/28/21 05:53) Albumin 25% (02/28/21 13:53) Albumin 25% (02/28/21 21:53) Albumin 25% (03/01/21 05:53) Albumin 25% (03/01/21 13:53) Lactic Acid Level, Lactate (02/25/21 21:54) Albumin 25% (02/25/21 20:11) Ns (Nacl 0.9%) (02/26/21 00:00) Pheresis Platelets (02/26/21 04:39) Transfuse Platelets (02/26/21 04:39) Note Patient Comment ( See Comment (02/26/21 06:05) Vancomycin Random (02/26/21 03:42) Potassium Chloride (Micro-K Extencaps) (02/26/21 10:30) Fingerstick Blood Sugar (02/26/21 11:47) Note Patient Comment ( See Comment (02/26/21 16:00) Vancomycin Hcl (Vancomycin Hcl) (02/26/21 16:00) Vancomycin Hcl (Vancomycin Hcl)... (02/27/21 16:00) Fingerstick Blood Sugar (02/26/21 16:43) Vancomycin Random (02/27/21 06:00) Fingerstick Blood Sugar (02/26/21 20:25) Plan Text 1. Acute oliguric renal failure: Second session of HD yesterday couldn't be completed due to hypotension and sepsis. Cr stable. No urgent need of HD. Continue Albumin,Midodrine and SQ Octreotide. 2.Sepsis sec to Staph Hominis SBP and ESBL Klebsiella in Sputum: Cont IV Zosyn. started Vanco for SBP coverage. Cont Albumin 25%, 25 gram IV Q 8hr. octreotide SQ. Improved lactic acid level. 3. Decompensated FLOOD cirrhosis with ascites. s/p paracentesis~8.2L. Stopped diuretics due to sepsis and low BP. 4. Heart failure with preserved ejection fraction, grade 1 diastolic dysfunction/Anasarca:Diuretics stopped due to sepsis and hypotension JOHANN SANTIAGO MD Feb 26, 2021 22:59
[2021-02-27] MEDS: PIPERACILLIN/TAZOBACTAM SOD 2.25 GM in D5W MINI-BAG PLUS 50 ML IV SCH ×3 (01:16→17:21)
[2021-02-27 04:44] VITALS: BP 94/56
[2021-02-27] MEDS: SODIUM CHLORIDE 0.9% INJ 10 ML SYR IV SCH ×2 (06:57→17:01)
[2021-02-27] MEDS: OCTREOTIDE ACETATE 100MCG/ML VIAL **IV ADMINISTRATION ONLY SC SCH ×3 (06:57→21:51)
[2021-02-27 07:17] LABS: BASO # 0.1 10^3/uL (0.0-0.2); BASO % 0.6 % (0.0-1.0); EOS # 0.5 10^3/uL (0.0-0.5); HEMATOCRIT 25.1 % (42.0-52.0); HEMOGLOBIN 8.8 g/dl (13.5-17.5); LYMPH # 1.8 10^3/uL (1.5-5.0); LYMPH % 21.1 % (24.0-44.0); MEAN CORPUSCULAR HEMOGLOBIN 30.8 pg (27.0-33.0); MEAN CORPUSCULAR HGB CONC 35.1 g/dl (32.0-36.5); MEAN CORPUSCULAR VOLUME 87.8 fl (80.0-96.0); MONO # 0.6 10^3/uL (0.0-0.8); MONO % 7.2 % (2.0-8.0); NEUTROPHILS # 5.4 10^3/uL (1.5-8.5); NEUTROPHILS % 64.7 % (36.0-66.0); RED BLOOD COUNT 2.86 10^6/uL (4.30-6.10); WHITE BLOOD COUNT 8.3 10^3/uL (4.0-10.0)
[2021-02-27 07:22] LABS: PLATELET COUNT, AUTOMATED 23 10^3/uL (150-450)
[2021-02-27 07:38] LABS: CALCIUM LEVEL 7.7 MG/DL (8.8-10.2); CREATININE FOR GFR 4.86 MG/DL (0.70-1.30); GLOMERULAR FILTRATION RATE 12.9 (>49); POTASSIUM SERUM 3.2 MEQ/L (3.5-5.1); VANCOMYCIN RANDOM 18.5 UG/ML
[2021-02-27] MEDS ORDERED: VANCOMYCIN INTERMITTENT/PULSE DOSING BY CLINICAL PHARMACIST PER DOSING PROTOCOL XX SCH (09:35)
[2021-02-27] MEDS: rifAXIMin 550 MG TAB (XIFAXAN) PO SCH ×2 (10:03→21:51)
[2021-02-27] MEDS: MIDODRINE 5 MG TAB PO SCH ×3 (10:03→17:21)
[2021-02-27] MEDS: POTASSIUM CHLORIDE 10MEQ SR TABLET PO SCH ×2 (10:03→13:16)
[2021-02-27] MEDS: OMEPRAZOLE 20 MG CAP PO SCH (10:03)
[2021-02-27] MEDS: SUCRALFATE 1 GM TAB PO SCH ×2 (10:03→21:51)
[2021-02-27] MEDS: HumaLOG INSULIN (NovoLOG) PER UNIT SC SCH ×4 (10:03→21:00)
[2021-02-27 10:51] LABS: ALBUMIN 2.4 GM/DL (3.2-5.2); MAGNESIUM LEVEL 1.8 MG/DL (1.8-2.4)
[2021-02-27] MEDS ORDERED: POTASSIUM CHLORIDE 10MEQ SR TABLET PO SCH (13:15)
[2021-02-27 14:00] VITALS: BP 103/65
--- NOTE | 2021-02-27 14:14 | IPN ---
NEPHROLOGY PROGRESS NOTE DATE: 02/27/2021 SUBJECTIVE: Mr. Glez is seen and examined this morning at the bedside. Chart is reviewed. He has not been doing well. He has had frequent hospitalizations the past few months. Since November, I count that this is his seventh hospitalization. He has had multiple recurrent kidney injuries over the past four months and, on this hospitalization, he has had oliguric renal failure in the setting of sepsis once more and patient was attempted on hemodialysis on February 24, 2021 and February 25, 2021. However, because of his very low blood pressures in the setting of decompensated cirrhosis and recurrent sepsis, the patient was unable to tolerate hemodialysis. His systolics have been in the 80s to 90s despite being on high dose midodrine 15 mg three times a day, along with octreotide along with 12 units of albumin infusion on this admission. Patient is also on broad spectrum vancomycin and Zosyn and clinically very frail. I discussed with him that he is unlikely to tolerate hemodialysis going forward and we have started discussion regarding hospice care. He remains oliguric the past 24 hours, but denies any shortness of breath at rest and there are no severe electrolyte issues on labs as of yet. OBJECTIVE: VITAL SIGNS: Temperature 98.0, pulse 62, respiratory rate 16, blood pressure 94/56, saturating 97% on room air. INTAKE AND OUTPUT: Intake yesterday was 40 mL oral intake and 600 mL intravenous blood product infusion (albumin, platelets). Urine output was 400 mL. GENERAL: Patient is seen lying in bed, elderly male, appears chronically ill, frail and weak and lethargic, but is communicative and understands the ongoing issues. HEENT: Extraocular muscles are intact. Tongue is moist. NECK: Jugular veins are elevated. There is a tunneled hemodialysis catheter in the right chest wall. HEART SOUNDS: Regular. There is 1+ peripheral edema. LUNGS: Show fairly symmetric air movement, which is decreased at the bases, otherwise, clear. There is no accessory muscle use. There is no tachypnea. ABDOMEN: Shows some mild ascites. GENITOURINARY: Shows Rivera catheter with small amount of dark urine in the bag. EXTREMITIES: 1+ edema present bilaterally. NEUROLOGIC: Patient is oriented times three and is depressed, answers simple questions appropriately and seems to understand the ongoing issues. LABORATORY STUDIES: Sodium 133, potassium 3.2, bicarbonate 19, BUN 27, creatinine 4.8, glucose 120, lactic acid 1.6, magnesium 1.8. Albumin 2.4. Hemoglobin 8.8, platelets 23 from 27 yesterday, 30 the day before. Blood cultures from February 20, 2021 showed no growth for two sets and repeat blood cultures were sent today. His ascites grew Staphylococcus hominis on February 22, 2021. His sputum culture had Klebsiella pneumoniae, extended spectrum beta-lactamase (ESBL). INPATIENT MEDICATIONS: Patient continues on vancomycin and Zosyn, midodrine 15 mg three times a day, octreotide 100 mcg subcutaneous every 8 hours, Prilosec 20 mg daily. He has received potassium chloride supplementation, Carafate 1 gram by mouth twice a day, rifaximin 50 mg by mouth twice a day. PROBLEMS: 1. Acute oliguric renal failure in this patient with multiple recent acute kidney injuries and underlying nonalcoholic steatohepatitis (FLOOD) cirrhosis (decompensated with ascites). This is the patient's seventh hospitalization since November of this year. He has gotten more debilitated and frail. He has had multiple recent issues with infectious problems. He was persistently bacteremic on his last hospitalization and on this hospitalization, his acidic fluid was positive for Staphylococcus hominis and sputum grew extended spectrum beta-lactamase (ESBL) Klebsiella. He is on broad spectrum vancomycin and Zosyn. An attempt was made to put him on hemodialysis on February 24, 2021 and February 25, 2021. However, the patient did not tolerate treatment, had acutely worsening blood pressure. At present, his systolic has been 80s to 90s on midodrine and octreotide. I discussed with the patient that I feel that he is unlikely to tolerate hemodialysis because of his other underlying issues (most notably decompensated nonalcoholic steatohepatitis (FLOOD) cirrhosis). He wants to speak with his further and then will make a decision whether he wants to try hemodialysis again on Monday or wishes to transition to hospice care. There is no urgent need of dialysis today. He is saturating well on room air and there is no significant acid base or electrolyte abnormality. 2. Sepsis secondary to Staphylococcus hominis peritonitis and extended spectrum beta-lactamase (ESBL) Klebsiella was also noted in sputum. Antibiotics are per the primary team. I did send repeat blood cultures as well. He is chronically on midodrine, presently at high dose of 15 mg three times a day. There is no lactic acidosis at this time. He is also on octreotide and we will continue the same. 3. Decompensated nonalcoholic steatohepatitis (FLOOD) cirrhosis with ascites status post paracentesis (large volume 8 liter) on this admission. Diuretics are held in the setting of renal failure secondary to sepsis and acute on chronic hypotension. Given his comorbid condition, patient is unlikely to tolerate hemodialysis and is too unstable for liver transplant. Primary team has been in conversation with transplant center. 4. Hypokalemia. Okay to give potassium supplementation with caution. 5. Thrombocytopenia. Acute on chronic and worsening and receiving platelet transfusion by the primary team. He has minimal edema in his legs, 1+, and does not clinically look to have a deep venous thrombosis (DVT). DISPOSITION: Very poor prognosis, given concomitant liver failure and renal failure and recurrent infectious issues. Patient unlikely to tolerate hemodialysis. Discussed hospice care with the patient. He will decide further after discussion with his . He will continue full treatment until patient comes to a decision. [facility]
[2021-02-27 14:27] VITALS: BP 103/65
--- NOTE | 2021-02-27 15:57 | IPNPDOC ---
Text Note Date of Service The patient was seen on 02/27/21. NOTE Subjective: Patient is a 66-year-old male presented with massive pedal edema and ascites received paracentesis 5 days ago. Patient is feeling tired today. Patient had dialysis started on Monday and attempted to receive dialysis on but his blood pressures were too low. Patient does feel very tired and sick right now. Patient does not complain of any pain. Patient has had some low blood pressures that did require a small bolus of fluid and increased dose of midodrine a few days ago. Patient's blood pressures are ranging anywhere from the 90s to 100s systolic. Review of systems: General: Patient denies fevers HEENT: Patient denies headaches Cardiovascular: Patient denies chest pain Respiratory: Patient denies shortness of breath, cough GI: Patient denies abdominal pain, nausea, vomiting, diarrhea : Patient denies increased frequency or pain with urination Extremities: Patient reports swelling bilateral extremities Neurological: Patient denies numbness or tingling in legs Physical exam: Vitals: See below General: Alert and oriented male patient was lying in bed when marked in the room. Patient not appear to be in any acute distress but does appear very fatigued and chronically ill HEENT: Normocephalic, atraumatic, moist mucous membranes. Neck: No lymphadenopathy or thyromegaly Cardiac: Regular rate and rhythm, no murmurs, normal S1, normal S2 Pulm: Clear to auscultation bilaterally. No wheezes, rhonchi, rales Abd: Minimally distended, nontender to palpation normal bowel sounds Ext: 1+ edema up to the level of the knee bilaterally. Labs: See below Imaging: No new imaging has been performed. Assessment/plan: 66-year-old male decompensated Avalos cirrhosis complicated by hepatic cephalopathy, recurrent ascites, chronic hypervolemic hyponatremia came to emergency department with oliguric renal failure 1. Oliguric renal failure. Patient was started on dialysis 3 days ago but has been hypotensive. Patient's urine output is still low. We will continue with albumin octreotide. The patient continues to have difficulty with dialysis and does not flower picker urine output, patient will most likely not be able to survive this hospitalization. I did speak with the both yesterday and today as well as the patient. Patient would like to continue to attempt to keep his blood pressure up in order to attempt dialysis on Monday. I appreciate Dr. Miller's help in treating the patient and the plan is to continue the treatment and attempt dialysis on Monday if blood pressures are high enough. 2. Decompensated liver cirrhosis with Avalos and ascites. Spoke with [facility] transplant center 3 days ago. Patient will need to be stabilized more prior to even attempting transfer to [place] in transplant of his liver. Will attempt to reach out again on Monday depending on how the patient tolerates dialysis. 3. Diarrhea. Patient is currently on antibiotics and his GI panel was negative earlier in his hospitalization. This is slightly improved and will continue to monitor. 4. Lactic acidosis. Patient had an elevated lactic acid. Patient's ascitic fluid grew staph hominis. Is not a usual pathogen for SBP but will treat at this time as the patient may be septic causing his hypotension. 5. Recurrent bacteremia. Repeat blood cultures performed today. Currently on Vanco and Zosyn. Patient's blood cultures were negative earlier on his hospitalization. 6. Sarcopenia/deconditioning. This is due to the patient's chronic medical diseases. PT and OT have been ordered but they have not been able to work with the patient because of his thrombocytopenia and weakness. 7. Chronic anemia. Hemoglobin is stable at this time. Continue to monitor. 8. Chronic hypotension. Continue with medial drain 50 mg 3 times daily. Worsening hypotension may be secondary to sepsis from SBP. We will continue with treatment with vancomycin and Zosyn at this time. 9. Chronic heart failure with preserved ejection fraction. Appears hypervolemic today. If blood pressures allow, dialysis will be attempted on Monday. 10. [id number] diabetes mellitus. Continue consistent carbohydrate diet. 11. History of pancreatic cancer status post Whipple in 2017. 12. ESBL Klebsiella on sputum culture. Continue IV Zosyn. Received 7 days total. 13. Thrombocytopenia. Transfuse platelets today. 14. Spontaneous bacterial peritonitis. Although cell count did not correlate with SBP, culture grew out staph hominis. Treat with vancomycin. DVT Prophylaxis: Teds and sequentials Disposition: Pending clinical improvement VS,Georgibone, I+O VS, Georgibone, I+O Laboratory Tests 02/27/21 06:52 Vital Signs Date Time Temp Pulse Resp B/P (MAP) Pulse Ox O2 Delivery O2 Flow Rate FiO2 02/27/21 14:27 98.3 58 18 103/65 99 Room Air 02/24/21 08:40 2.0 I&O- Last 24 Hours up to 6 AM 02/27/21 06:00 Intake Total 1229.0 ml Output Total 250 ml Balance 979.0 ml GUALBERTO ALBERT DO Feb 27, 2021 15:57
[2021-02-27] MEDS ORDERED: VANCOMYCIN HCL 750 MG, VIAL MATE ADAPTER 1 EACH in NS 250 ML IV SCH (16:00)
[2021-02-27 18:54] VITALS: BP 100/62
[2021-02-27 22:00] VITALS: BP 103/59
[2021-02-27 23:25] VITALS: BP 101/61
[2021-02-28] VITALS (9 sets, daily range): BP systolic 11–108; BP diastolic 56–69
[2021-02-28] MEDS: PIPERACILLIN/TAZOBACTAM SOD 2.25 GM in D5W MINI-BAG PLUS 50 ML IV SCH ×3 (01:18→17:55)
[2021-02-28] MEDS: OCTREOTIDE ACETATE 100MCG/ML VIAL **IV ADMINISTRATION ONLY SC SCH ×3 (07:01→22:42)
[2021-02-28] MEDS: SODIUM CHLORIDE 0.9% INJ 10 ML SYR IV SCH ×2 (07:01→17:55)
[2021-02-28 08:11] LABS: BASO % 0.6 % (0.0-1.0); HEMATOCRIT 26.1 % (42.0-52.0); HEMOGLOBIN 8.8 g/dl (13.5-17.5); LYMPH # 1.4 10^3/uL (1.5-5.0); LYMPH % 19.9 % (24.0-44.0); MEAN CORPUSCULAR HEMOGLOBIN 29.9 pg (27.0-33.0); MEAN CORPUSCULAR HGB CONC 33.7 g/dl (32.0-36.5); MEAN CORPUSCULAR VOLUME 88.8 fl (80.0-96.0); MONO # 0.5 10^3/uL (0.0-0.8); MONO % 7.4 % (2.0-8.0); NEUTROPHILS # 4.9 10^3/uL (1.5-8.5); NEUTROPHILS % 71.7 % (36.0-66.0); RED BLOOD COUNT 2.94 10^6/uL (4.30-6.10); WHITE BLOOD COUNT 6.9 10^3/uL (4.0-10.0)
[2021-02-28 08:15] LABS: PLATELET COUNT, AUTOMATED 27 10^3/uL (150-450)
[2021-02-28 08:38] LABS: CALCIUM LEVEL 7.8 MG/DL (8.8-10.2); CREATININE FOR GFR 4.93 MG/DL (0.70-1.30); GLOMERULAR FILTRATION RATE 12.7 (>49); POTASSIUM SERUM 3.4 MEQ/L (3.5-5.1); VANCOMYCIN RANDOM 17.1 UG/ML
[2021-02-28] MEDS: rifAXIMin 550 MG TAB (XIFAXAN) PO SCH ×2 (09:20→22:41)
[2021-02-28] MEDS: OMEPRAZOLE 20 MG CAP PO SCH (09:20)
[2021-02-28] MEDS: HumaLOG INSULIN (NovoLOG) PER UNIT SC SCH ×4 (09:20→21:00)
[2021-02-28] MEDS: SUCRALFATE 1 GM TAB PO SCH ×2 (09:21→22:41)
[2021-02-28] MEDS: MIDODRINE 5 MG TAB PO SCH ×3 (09:21→17:55)
--- NOTE | 2021-02-28 12:53 | IPNPDOC ---
Text Note Date of Service The patient was seen on 02/28/21. NOTE Subjective: Patient is a 66-year-old male presented with massive pedal edema and ascites he received paracentesis 6 days ago. Patient is still feeling tired but is much more awake and in better spirits today now that his is present at the bedside. Patient does not complain of any pain. Patient's been having some low blood pressures around systolics of 90s to 100s. There have been no acute events overnight. Patient is otherwise feeling well. Review of systems: General: Patient denies fevers HEENT: Patient denies headaches Cardiovascular: Patient denies chest pain Respiratory: Patient denies shortness of breath, cough GI: Patient denies abdominal pain, nausea, vomiting, diarrhea : Patient denies increased frequency or pain with urination Extremities: Patient denies swelling or pain in extremities Neurological: Patient denies numbness or tingling in legs Physical exam: Vitals: See below General: Alert and oriented male patient who is lying in bed when I walked into the room. Patient did not appear to be in any acute distress but does appear very fatigued and chronically ill. HEENT: Normocephalic, atraumatic, moist mucous membranes. Neck: No lymphadenopathy or thyromegaly Cardiac: Regular rate and rhythm, no murmurs, normal S1, normal S2 Pulm: Clear to auscultation bilaterally. No wheezes, rhonchi, rales Abd: Minimally distended, nontender to palpation, normal bowel sounds Ext: 1+ pitting edema up to the level of the hip bilaterally Labs: See below Imaging: No new imaging has been performed Assessment/plan: 66-year-old male with decompensated Avalos cirrhosis complicated by hepatic encephalopathy, recurrent ascites, chronic hypervolemic hyponatremia who presented to the emergency department with oliguric renal failure. 1. Oliguric renal failure. Patient was started on dialysis last week but became hypotensive during his second session of dialysis and only was able to receive about 20 minutes of dialysis. Patient's blood pressures have been low so the patient has not been able to get dialysis since then. Patient continues to make very little urine. Patient is on albumin, octreotide, and midodrine in order to attempt to raise the blood pressure. I spoke with Dr. Miller the patient's material requisitioner who will attempt dialysis tomorrow as long as the patient's blood pressures are high enough. 2. Decompensated liver cirrhosis with Avalos and ascites. I spoke with the [facility] transplant center last week. Patient will need to be stabilized more prior to attempting transfer to [place] for possible transplantation of his liver. I will reach out to the transplant center again on Monday to update them on his current condition. 3. Diarrhea. Patient is currently on antibiotics and his GI panel has been negative. This is improved. 4. Lactic acidosis. Patient had an elevated lactic acid. Patient's ascitic fluid grew staph hominis. This is not a usual pathogen for SBP however, we are treating at this time as this may be a reason why the patient's hypotensive due to sepsis. 5. Recurrent bacteremia. Repeat blood cultures performed today. Continue vancomycin and Zosyn. Patient blood cultures have been negative earlier on in his hospitalization. 6. Sarcopenia/deconditioning. This is due to the patient's chronic medical diseases. PT and OT have been ordered. Continue working with them. 7. Chronic anemia. Hemoglobin is stable continue to monitor. Chronic hypotension. This is worsened. Patient's midodrine has been increased to 15 mg 3 times daily. If the blood pressure allows, dialysis will be attempted on Monday. 9. Chronic heart failure preserved ejection fraction. Appears hypervolemic. Dialysis as above. 10. Nqs-ziooajh-[id number] diabetes mellitus. Consistent carbohydrate diet. 11. History of pancreatic cancer status post Whipple in 2017. 12. ESBL Klebsiella on sputum culture. Continue IV Zosyn. 13. Thrombocytopenia. Transfuse platelets today as the patient appears to have been bleeding from his tunneled dialysis catheter. 14. Spontaneous bacterial peritonitis. Although cell count does not correlate with SBP, culture grew staph hominis. Treat with vancomycin. DVT Prophylaxis: Teds and sequentials Disposition: Pending clinical improvement, will reach out to [facility] transplant [place] tomorrow. VS,Fishbone, I+O VS, Fishbone, I+O Laboratory Tests 02/28/21 07:45 Vital Signs Date Time Temp Pulse Resp B/P (MAP) Pulse Ox O2 Delivery O2 Flow Rate FiO2 02/28/21 11:38 98.4 61 18 99/60 99 Room Air 02/24/21 08:40 2.0 I&O- Last 24 Hours up to 6 AM 02/28/21 06:00 Intake Total 1312.0 ml Output Total 225 ml Balance 1087.0 ml GUALBERTO ALBERT DO Feb 28, 2021 12:53
[2021-03-01] VITALS (9 sets, daily range): BP systolic 95–146; BP diastolic 56–69
[2021-03-01] MEDS: OCTREOTIDE ACETATE 100MCG/ML VIAL **IV ADMINISTRATION ONLY SC SCH ×3 (05:23→22:14)
[2021-03-01] MEDS: SODIUM CHLORIDE 0.9% INJ 10 ML SYR IV SCH ×2 (05:23→17:30)
[2021-03-01] MEDS ORDERED: SODIUM CHLORIDE 0.9% 1000ML IV PRN (07:00)
[2021-03-01 07:23] LABS: BASO % 0.3 % (0.0-1.0); EOS # 0.2 10^3/uL (0.0-0.5); EOS % 2.6 % (0.0-3.0); HEMATOCRIT 24.1 % (42.0-52.0); HEMOGLOBIN 8.2 g/dl (13.5-17.5); LYMPH # 1.5 10^3/uL (1.5-5.0); LYMPH % 23.4 % (24.0-44.0); MEAN CORPUSCULAR HEMOGLOBIN 29.7 pg (27.0-33.0); MEAN CORPUSCULAR VOLUME 87.3 fl (80.0-96.0); MONO # 0.5 10^3/uL (0.0-0.8); MONO % 7.3 % (2.0-8.0); NEUTROPHILS # 4.2 10^3/uL (1.5-8.5); NEUTROPHILS % 65.9 % (36.0-66.0); RED BLOOD COUNT 2.76 10^6/uL (4.30-6.10); WHITE BLOOD COUNT 6.4 10^3/uL (4.0-10.0)
[2021-03-01] MEDS: HumaLOG INSULIN (NovoLOG) PER UNIT SC SCH ×4 (07:30→21:00)
[2021-03-01 07:36] LABS: PLATELET COUNT, AUTOMATED 31 10^3/uL (150-450)
[2021-03-01 07:45] LABS: CALCIUM LEVEL 8.3 MG/DL (8.8-10.2); CREATININE FOR GFR 5.02 MG/DL (0.70-1.30); GLOMERULAR FILTRATION RATE 12.4 (>49); POTASSIUM SERUM 3.1 MEQ/L (3.5-5.1); VANCOMYCIN RANDOM 15.7 UG/ML
[2021-03-01] MEDS: OMEPRAZOLE 20 MG CAP PO SCH (08:08)
[2021-03-01] MEDS: MIDODRINE 5 MG TAB PO SCH ×3 (08:09→17:30)
[2021-03-01] MEDS: rifAXIMin 550 MG TAB (XIFAXAN) PO SCH ×2 (08:09→22:14)
[2021-03-01] MEDS: SUCRALFATE 1 GM TAB PO SCH ×2 (08:09→22:14)
--- NOTE | 2021-03-01 11:36 | IPNPDOC ---
Text Note Date of Service The patient was seen on 03/01/21. NOTE SUBJECTIVE: Patient is seen and examined this morning at bedside. He states he is feeling okay. Denies any pain. Denies any new complaints. His is at bedside and all questions at that time were answered. Patient understands plan for today is to try hemodialysis again and monitor blood pressure. We did discuss the possibility of hospice consult if he does not tolerate dialysis. OBJECTIVE: VITAL SIGNS: See below GENERAL: Alert, comfortable, in no acute distress. Patient appears thin and tired with some muscle wasting. HEENT: Normocephalic, atraumatic, moist mucous membranes NECK: Supple, trachea midline, no lymphadenopathy CARDIOVASCULAR: Regular rate and rhythm, normal S1 and S2. No murmurs, rubs, or gallops RESPIRATORY: Clear to auscultation bilaterally with equal air entry bilaterally. No wheezing, rhonchi, or rales. ABDOMEN: Somewhat distended but soft abdomen. Nontender, bowel sounds present. EXTREMITIES: 1+ pitting edema in bilateral lower extremities extending up to the hips NEUROLOGIC: No focal deficits appreciated PSYCHIATRIC: Mood and affect appropriate ASSESSMENT/PLAN: 66-year-old male with history of cirrhosis secondary to unknown cause/possibly FLOOD, and complications of hepatic encephalopathy, recurrent ascites requiring weekly paracentesis, GAVE, thrombocytopenia, with additional past medical history of pancreatic adenocarcinoma currently in remission status post Whipple procedure and chemotherapy, recurrent bacteremia, diabetes mellitus, chronic anemia, and diastolic CHF who presented to the hospital with oliguric renal failure now requiring hemodialysis #Oliguric renal failure Patient has had a dialysis catheter inserted and was able to successfully complete dialysis once last week. However, during the patient's second session he became very hypotensive and stopped after about 20 minutes. Nephrology is consulted, appreciate recommendations Plan is to attempt dialysis again today. #Decompensated liver cirrhosis, unknown cause/possibly FLOOD, with current ascites and a history of hepatic encephalopathy Patient has additional complications including GAVE and thrombocytopenia. In contact with [facility] transplant center in [facility] for possible transfer if the patient's condition stabilizes Last paracentesis on 02/22/2021. Patient typically has weekly paracentesis. Will hold off for today given the patient is going for hemodialysis. #Hypotension Likely multifactorial with the patient's cirrhosis playing a large role Continue midodrine 15 mg 3 times a day #Possible SBP secondary to Staphylococcus hominis Culture from paracentesis fluid grew few staph hominis. Patient has history of recurrent sepsis. Covering with IV vancomycin day #5 2 blood cultures drawn on 02/20/2021 are negative after 5 days Repeat blood culture drawn on 02/27/2021 is negative at 48 hours #ESBL Klebsiella on sputum culture Continue with IV Zosyn day #9 #Recurrent bacteremia on prior admissions Previously treated for E. coli bacteremia twice and most recently for Enterococcus faecalis and ESBL Klebsiella Blood cultures drawn on this admission have been negative. #Thrombocytopenia Secondary to cirrhosis Avoid anticoagulants Transfuse platelets for platelet count less than 10,000 or less than 30,000 if bleeding. #Chronic anemia Patient has history of GI bleeding and anemia of chronic disease Continue monitor H&H daily and transfuse for hemoglobin less than 7 #History of pancreatic adenocarcinoma, currently in remission Status post chemotherapy and Whipple procedure in 2017 Follows with hematology oncology in [facility] #Diabetes mellitus Currently not on medication Developed after Whipple procedure, may be due to pancreatic insufficiency Consistent carbohydrate diet #CHF with preserved ejection fraction Patient currently hypervolemic, avoid diuretics due to hypotension Fluid management with HD #Deconditioning PT/OT ordered DVT prophylaxis: Teds and sequentials. Avoid medical prophylaxis due to thrombocytopenia Disposition: Pending clinical improvement, in contact with [facility] transplant [place] to discuss transfer for further management. The patient and his understand the severity of his condition and we have started to discuss transition to hospice if he does not improve from his current condition. VS,Fishbone, I+O VS, Fishbone, I+O Laboratory Tests 03/01/21 07:12 Vital Signs Date Time Temp Pulse Resp B/P (MAP) Pulse Ox O2 Delivery O2 Flow Rate FiO2 03/01/21 10:30 98.2 84 16 144/63 Room Air 03/01/21 09:10 96 02/24/21 08:40 2.0 I&O- Last 24 Hours up to 6 AM 03/01/21 06:00 Intake Total 1053.0 ml Output Total 400 ml Balance 653.0 ml GME ATTESTATION GME ATTESTATION My faculty preceptor for this patient encounter was physically present during the encounter and was fully available. All aspects of the patient interview, examination, medical decision making process, and medical care plan development were reviewed and approved by the faculty preceptor. The faculty preceptor is aware and concurs with the plan as stated in the body of this note and will attest to such by his/her cosignature. ATTENDING NOTE I, Angel Albert DO, have independently examined this patient and performed my own physical exam, as well as reviewed the documentation and edited where necessary. I have discussed in detail with the resident the findings and plan of treatment as documented by the resident and edited their note. I agree with their findings and treatment plan and have edited their documentation. I will continue to follow the patient during this hospital stay. KVNG CAMPA D.O. Mar 01, 2021 11:36 ANGEL ALBERT DO Mar 01, 2021 16:21
--- NOTE | 2021-03-01 14:34 | IPN ---
INPATIENT PROGRESS NOTE DATE: 03/01/2021 SUBJECTIVE: Mr. Glez was seen and examined this morning in the Hemodialysis Unit where he is receiving another attempt at hemodialysis with a gentle prescription written with a small size dialyzer and a relatively low blood flow rate and additionally written to receive albumin support with dialysis. With these maneuvers he is tolerating attempt at hemodialysis today with a stable blood pressure and goal fluid removal is 1 liter. He reports no new complaints he is just concerned with whether or not he will be able to tolerate a 3 hour session of hemodialysis. He denies any shortness of breath at rest. He continues to have very low platelets and has scattered bruising and significant old blood caking the dialysis catheter site. PHYSICAL EXAMINATION: Vital signs: Temperature 97.8, pulse 89, respiratory rate 16, blood pressure 146/59, saturating 96% on room air. Intake yesterday was 1 liter. Goal dialysis fluid removal today is 1 liter. Urine output yesterday was 400 mL. Weight on the bed scale is 74.4 kg. General: Patient is seen lying in the bed in the Hemodialysis Unit awake, alert, oriented times 3, comfortable, in no apparent distress receiving his treatment, chronically ill and fatigued appearing. HEENT: Extraocular muscles are intact. Tongue is moist. Neck: Supple. There is a hemodialysis catheter presently in use and the dressing is soaked with old dried blood. There is scattered bruising diffusely over his body. Heart sounds: Regular S1 and S2. Lungs: Anterior auscultation only was clear. There was no crackles. He was comfortable on room air. There is no accessory muscle use. Abdomen: Soft. There is ascites present. Genitourinary: Indwelling Rivera catheter and there is clearer urine present today. Extremities: 1+ edema in the legs. Skin: Scattered ecchymosis and bruising in various stages. Neurologic: He is oriented times 3. He is weak, but he follows simple commands and answers questions appropriately. LABORATORY DATA: White count 6.4, hemoglobin 8.2, platelets 31. Sodium 133, potassium 3.1, bicarbonate 18, BUN 31, creatinine 5. GFR 12. INPATIENT MEDICATIONS: Reviewed by myself. 1. He is on vancomycin and Zosyn managed by the primary service. Most recent vancomycin random level today was 15.7. He otherwise continues on: 2. Insulin. 3. Midodrine 15 mg by mouth three times a day. 4. Octreotide 100 mg subcutaneously q8h. 5. Omeprazole 20 mg by mouth daily. 6. Rifaximin 550 mg by mouth twice a day. 7. Carafate 1 gram by mouth twice a day. PROBLEMS/PLAN: 1. Acute oliguric renal failure in this patient with multiple recent acute kidney injuries and underlying non-alcoholic steatohepatitis, cirrhosis decompensated with ascites: This is the patient's seventh hospitalization since November of this year. He has become more debilitated and frail. He has had multiple recent issues with infectious problems and multiple recent acute kidney injuries. On this hospitalization he developed oliguric renal failure in the setting of SBP. He is on broad spectrum vancomycin and Zosyn managed by the primary service. He was initiated on hemodialysis last week. He had 2 attempted treatments. On the first treatment 1 liter of fluid was successfully removed. On the second treatment he had prompt worsening hemodynamics and dialysis was aborted after 20 minutes. Today we are dialyzing him with full support (small dialyzer size, low blood flow and albumin with dialysis) and he is tolerating the treatment thus far. Goal fluid removal today is 1 liter. He will be re-evaluated for dialysis on a daily basis. 2. Recent bout of sepsis secondary to Staphylococcus hominis peritonitis: Antibiotics managed by the primary team. Patient has chronic hypotension also related to his FLOOD cirrhosis. He is chronically on midodrine presently on a high dose of 15 mg three times a day. He is also on octreotide. He was able to tolerate dialysis thus far today with goal fluid removal of 1 liter. 3. Hypokalemia: He is being dialyzed with a 4 mEq potassium bath. 4. Thrombocytopenia complicating his care: Platelet transfusions are being directed by the primary team. He received heparin free dialysis today. 5. FLOOD cirrhosis with ascites: Status post recent large volume 8 liter paracentesis on this admission. Not suitable for diuretic at this time in view of oliguric renal failure. Primary team is in conversation with transplant center to see if any sort of transfer can be facilitated.
[2021-03-01] MEDS ORDERED: VANCOMYCIN HCL 500 MG in D5W MINI-BAG PLUS 100 ML IV ONE (18:00)
[2021-03-02] VITALS (10 sets, daily range): BP systolic 98–112; BP diastolic 54–67
[2021-03-02] MEDS: SODIUM CHLORIDE 0.9% INJ 10 ML SYR IV SCH ×2 (05:51→18:18)
[2021-03-02] MEDS: OCTREOTIDE ACETATE 100MCG/ML VIAL **IV ADMINISTRATION ONLY SC SCH ×3 (05:51→22:52)
[2021-03-02] MEDS: HumaLOG INSULIN (NovoLOG) PER UNIT SC SCH ×4 (07:30→20:35)
[2021-03-02 09:11] LABS: ALBUMIN 3.1 GM/DL (3.2-5.2); BILIRUBIN,TOTAL 2.7 MG/DL (0.2-1.0); CALCIUM LEVEL 8.1 MG/DL (8.8-10.2); CREATININE FOR GFR 3.5 MG/DL (0.70-1.30); GLOMERULAR FILTRATION RATE 18.9 (>49); PHOSPHORUS LEVEL 2.9 MG/DL (2.5-4.9); POTASSIUM SERUM 3.4 MEQ/L (3.5-5.1)
[2021-03-02 09:12] LABS: MAGNESIUM LEVEL 1.7 MG/DL (1.8-2.4)
[2021-03-02] MEDS: MIDODRINE 5 MG TAB PO SCH ×3 (09:14→16:28)
[2021-03-02] MEDS: OMEPRAZOLE 20 MG CAP PO SCH (09:15)
[2021-03-02] MEDS: rifAXIMin 550 MG TAB (XIFAXAN) PO SCH ×2 (09:15→20:34)
[2021-03-02] MEDS: SUCRALFATE 1 GM TAB PO SCH ×2 (09:15→20:34)
--- NOTE | 2021-03-02 10:49 | IPNPDOC ---
Text Note Date of Service The patient was seen on 03/02/21. NOTE SUBJECTIVE: Patient is seen and examined this morning at bedside. He states he did okay with dialysis yesterday. He has no new concerns today. He states he is feeling about the same as he has been. He does feel some distention in his abdomen as he is 1 day past his typical weekly paracentesis. He denies any nausea vomiting diarrhea or abdominal pain. OBJECTIVE: VITAL SIGNS: See below GENERAL: Alert, comfortable, in no acute distress. Patient appears thin and tired with some muscle wasting. HEENT: Normocephalic, atraumatic, moist mucous membranes NECK: Supple, trachea midline, no lymphadenopathy CARDIOVASCULAR: Regular rate and rhythm, normal S1 and S2. No murmurs, rubs, or gallops RESPIRATORY: Clear to auscultation bilaterally with equal air entry bilaterally. No wheezing, rhonchi, or rales. ABDOMEN: Somewhat distended but soft abdomen. Nontender, bowel sounds present. EXTREMITIES: 1+ pitting edema in bilateral lower extremities extending up to the hips NEUROLOGIC: No focal deficits appreciated PSYCHIATRIC: Mood and affect appropriate ASSESSMENT/PLAN: 66-year-old male with history of cirrhosis secondary to unknown cause/possibly FLOOD, and complications of hepatic encephalopathy, recurrent ascites requiring weekly paracentesis, GAVE, thrombocytopenia, with additional past medical history of pancreatic adenocarcinoma currently in remission status post Whipple procedure and chemotherapy, recurrent bacteremia, diabetes mellitus, chronic anemia, and diastolic CHF who presented to the hospital with oliguric renal failure now requiring hemodialysis #Oliguric renal failure Patient has had a dialysis catheter inserted and initially had difficulty tolerating dialysis due to hypotension. Nephrology is consulted, appreciate recommendations Patient tolerated dialysis yesterday with 1 L of fluid removed. Further dialysis per nephrology. #Decompensated liver cirrhosis, unknown cause/possibly FLOOD, with current ascites and a history of hepatic encephalopathy Patient has additional complications including GAVE and thrombocytopenia. In contact with [facility] transplant center in [facility] for possible transfer if the patient's condition stabilizes Last paracentesis on 02/22/2021. Patient typically has weekly paracentesis. Ordered for paracentesis to be complete today with no more than 6 L removed. Per patient's outpatient automatic nailing machine operator, patient should not have more than 6 L removed during paracentesis and should receive 50 g of albumin after paracentesis. #Hypotension Likely multifactorial with the patient's cirrhosis playing a large role Continue midodrine 15 mg 3 times a day #Possible SBP secondary to Staphylococcus hominis Culture from paracentesis fluid grew few staph hominis. May be contamination, but patient is high risk due to history of recurrent bacteremia and sepsis. Completed 5-day course of IV antibiotics with vancomycin, will discontinue today. 2 blood cultures drawn on 02/20/2021 are negative after 5 days Repeat blood culture drawn on 02/27/2021 is negative at 48 hours We will transition patient today to SBP prophylaxis with 1 g IV ceftriaxone daily while inpatient #ESBL Klebsiella on sputum culture Status post course of IV Zosyn for 9 days. #Recurrent bacteremia on prior admissions Previously treated for E. coli bacteremia twice and most recently for Enterococcus faecalis and ESBL Klebsiella Blood cultures drawn on this admission have been negative. #Thrombocytopenia Secondary to cirrhosis Avoid anticoagulants Transfuse platelets for platelet count less than 10,000 or less than 30,000 if bleeding. #Chronic anemia Patient has history of GI bleeding and anemia of chronic disease Hemoglobin decreased to 6.9 today, will transfuse 1 unit PRBCs and recheck this evening Continue monitor H&H daily and transfuse for hemoglobin less than 7 #History of pancreatic adenocarcinoma, currently in remission Status post chemotherapy and Whipple procedure in 2017 Follows with hematology oncology in [facility] #Diabetes mellitus Currently not on medication Developed after Whipple procedure, may be due to pancreatic insufficiency Consistent carbohydrate diet #CHF with preserved ejection fraction Patient currently hypervolemic, avoid diuretics due to hypotension Fluid management with HD #Deconditioning PT/OT ordered DVT prophylaxis: Teds and sequentials. Avoid medical prophylaxis due to thrombocytopenia Disposition: Pending clinical improvement, in contact with [facility] transplant center to discuss transfer for further management. The patient and his understand the severity of his condition and we have started to discuss transition to hospice if he does not improve from his current condition. VS,Fishbone, I+O VS, Fishbone, I+O Laboratory Tests 03/02/21 08:22 Vital Signs Date Time Temp Pulse Resp B/P (MAP) Pulse Ox O2 Delivery O2 Flow Rate FiO2 03/02/21 06:00 98.2 83 16 108/66 (80) 97 Room Air 02/24/21 08:40 2.0 I&O- Last 24 Hours up to 6 AM 03/02/21 06:00 Intake Total 1150.0 ml Output Total 1175 ml Balance -25.0 ml GME ATTESTATION GME ATTESTATION My faculty preceptor for this patient encounter was physically present during the encounter and was fully available. All aspects of the patient interview, examination, medical decision making process, and medical care plan development were reviewed and approved by the faculty preceptor. The faculty preceptor is a barnett and concurs with the plan as stated in the body of this note and will attest to such by his/her cosignature. ATTENDING NOTE I, Estefany Hazel, have independently examined this patient and performed my own physical exam, as well as reviewed the documentation and edited where necessary with the resident. For medical students we have performed the physical exam to gether and discussed medical decision making and I have verified the history. I have discussed in detail with the resident / student the findings and plan of treatment as documented by the resident / student and edited their note. I agree with their findings and treatment plan and have edited their documentation. I will continue to follow the patient during this hospital stay. KVNG CAMPA D.O. Mar 02, 2021 10:49 ESTEFANY HAZEL MD Mar 02, 2021 14:44
[2021-03-02 11:32] LABS: BASO % 0.3 % (0.0-1.0); EOS % 0.1 % (0.0-3.0); LYMPH # 1.2 10^3/uL (1.5-5.0); LYMPH % 17.7 % (24.0-44.0); MEAN CORPUSCULAR HEMOGLOBIN 30.7 pg (27.0-33.0); MEAN CORPUSCULAR VOLUME 87.6 fl (80.0-96.0); MONO # 0.7 10^3/uL (0.0-0.8); MONO % 9.6 % (2.0-8.0); RED BLOOD COUNT 2.25 10^6/uL (4.30-6.10); WHITE BLOOD COUNT 6.9 10^3/uL (4.0-10.0)
[2021-03-02 11:34] LABS: HEMATOCRIT 19.7 % (42.0-52.0); PLATELET COUNT, AUTOMATED 28 10^3/uL (150-450)
[2021-03-02 11:35] LABS: HEMOGLOBIN 6.9 g/dl (13.5-17.5)
[2021-03-02] MEDS: cefTRIAXone SOD 1 GM in D5W MINI-BAG PLUS 50 ML IV SCH (12:30)
--- NOTE | 2021-03-02 17:19 | REP ---
INDICATION: ascites *DO NOT REMOVE MORE THAN 6L* The patient has a history of ascites COMPARISON: None. TECHNIQUE: The procedure was performed by THANH White, under the direct supervision of Dr. Kern The risks and benefits of the procedure were explained to the patient and an informed consent was obtained both verbally and written. Directly prior to the start of the procedure a formal time-out was completed in the procedure room. The largest pocket of fluid was localized in the left lower quadrant using ultrasound guidance. The skin was prepped and draped in a sterile fashion. Ten ML of 1% lidocaine 10 mg/ml was used as a local anesthetic. An 8-Welsh multi side-hole catheter was inserted using trocar technique. FINDINGS: 6000 mL of saul fluid was removed. The patient tolerated the procedure well and there were no immediate complications. After the appropriate amount of monitored convalescence, the patient was discharged from the department. IMPRESSION: Technically successful ultrasound-guided paracentesis yielding 6000 mL of saul fluid. <Electronically signed by Shelby Campos > 03/02/21 1604 <Electronically signed by Eleno Kern > 03/02/21 [id number]
[2021-03-02 18:16] LABS: APPEARANCE, BODY FLUID HAZY (CLEAR); ASCITES FL COLOR YELLOW (COLORLESS); SOURCE, BODY FLUID ASCITES
--- NOTE | 2021-03-02 19:35 | IPN ---
NEPHROLOGY PROGRESS NOTE DATE: 03/02/2021 SUBJECTIVE: Mr. Glez is seen and examined this morning at the bedside. He is pending large volume paracentesis today. He was dialyzed yesterday and he tolerated the dialysis treatment with every hour albumin support and we were able to remove 1 liter of fluid with dialysis. His hemoglobin dropped to 6.9 and he is being transfused packed red blood cells today. He offers no new complaints or questions. No abdominal pain. Denies any shortness of breath while he is laying in bed. PHYSICAL EXAMINATION: VITAL SIGNS: Temperature 98.8, pulse 92, respiratory rate 18, blood pressure 112/67, saturating 99% on room air. INTAKE AND OUTPUT: Intake yesterday was 810. Dialysis today removed 1 liter. Urine output yesterday was 275 mL. Weight in the bed scale today is 74.9 kg. GENERAL: Patient is seen lying in bed, chronically ill-appearing male in no distress, fatigued appearing. There is decreased lean muscle mass and muscle wasting on appearance. HEENT: Extraocular muscles are intact. Tongue is moist. NECK: Supple. Jugular veins are elevated. HEART SOUNDS: Regular. S1, S2. There is a tunneled hemodialysis catheter in the right chest wall with a new, clean dressing. LUNGS: Symmetric air entry, anterior auscultation only. Seems to be diminished at the bases. ABDOMEN: Soft and distended. There is some ascites present, but it is not tense. GENITOURINARY: Shows a Rivera catheter with minimal urine in the bag. EXTREMITIES: Compression stockings and 1+ edema coming up to the thighs and sacral and hip area. NEUROLOGIC: He moves his extremities on command and is cooperative with physical examination and is oriented. PSYCHIATRIC: He appears quite depressed. LABORATORY STUDIES: White count 6.9, hemoglobin 6.9, platelets 28. Sodium 136, potassium 3.4, bicarbonate 17, BUN 18, creatinine 3.5, magnesium 1.7. Albumin 3.1. IMAGING: There was a paracentesis done today with 6 liters of fluid removed. INPATIENT MEDICATIONS: Reviewed by myself. I note patient is on ceftriaxone 1 gram intravenous (IV) daily. He got a dose of vancomycin yesterday. Most recent vancomycin random level yesterday was 15.7. He also continued on: - insulin - midodrine 15 mg by mouth three times a day - octreotide 100 mcg subcutaneous every 8 hours - omeprazole 20 mg by mouth daily - rifaximin 550 mg by mouth twice a day - Carafate 1 gram by mouth twice a day PROBLEMS: 1. Acute oliguric renal failure in this patient with multiple recent acute kidney injuries and underlying nonalcoholic steatohepatitis cirrhosis with large volume recurrent ascites. This is the patient's seventh hospitalization since November of this year. He has become considerably more debilitated and frail. He has had multiple recent infectious problems and, on this hospitalization, developed oliguric renal failure in the setting of spontaneous bacterial peritonitis (SBP). He is on broad spectrum antibiotics managed by the primary service. Vancomycin random level was close to therapeutic yesterday and he did receive a dose of vancomycin post dialysis yesterday. He was initiated on hemodialysis last week and did have trouble with hemodynamic stability during dialysis. However, yesterday's treatment went fairly well. He received albumin hourly with dialysis and we were able to remove 1 liter of fluid. We will dialyze him again on Monday. There is no sign of renal recovery and the patient remains oliguric at this time. I feel his long-term prognosis is very poor. 2. Chronic hypotension related to nonalcoholic steatohepatitis (FLOOD) cirrhosis and also due to recent infectious issues. Patient is chronically on midodrine, presently on 15 mg three times a day. His blood pressure does seem to be a little bit better today and we will see how he does with another dialysis treatment tomorrow. Today he is having a large volume paracentesis with albumin to be given post-procedure. 3. Hypokalemia. We will dialyze him with a high potassium bath. 4. Thrombocytopenia and acute on chronic anemia in this patient with history of gastrointestinal (GI) bleed. Hemoglobin down to 6.9 today. Primary team is transfusing 1 unit packed red blood cells. He receives heparin-free dialysis in view of very low platelets. If hemoglobin continues to be less than 7 tomorrow, we can arrange for blood with dialysis. 5. Diastolic congestive heart failure. Patient is decompensated. He is hypovolemic with edema and large volume ascites. We will try to remove fluid again with hemodialysis tomorrow, depending on how he does from a hemodynamic point of view.
[2021-03-02 19:45] LABS: HEMATOCRIT 25.6 % (42.0-52.0); MEAN CORPUSCULAR HEMOGLOBIN 30.7 pg (27.0-33.0); MEAN CORPUSCULAR HGB CONC 34.4 g/dl (32.0-36.5); MEAN CORPUSCULAR VOLUME 89.2 fl (80.0-96.0); RED BLOOD COUNT 2.87 10^6/uL (4.30-6.10); WHITE BLOOD COUNT 11.7 10^3/uL (4.0-10.0)
[2021-03-02 19:46] LABS: HEMOGLOBIN 8.8 g/dl (13.5-17.5); PLATELET COUNT, AUTOMATED 31 10^3/uL (150-450)
[2021-03-03] VITALS (17 sets, daily range): BP systolic 96–132; BP diastolic 52–96
[2021-03-03] MEDS: OCTREOTIDE ACETATE 100MCG/ML VIAL **IV ADMINISTRATION ONLY SC SCH (05:49)
[2021-03-03] MEDS: SODIUM CHLORIDE 0.9% INJ 10 ML SYR IV SCH ×2 (06:35→17:04)
[2021-03-03 06:55] LABS: BASO % 0.2 % (0.0-1.0); EOS % 0.2 % (0.0-3.0); HEMOGLOBIN 7.2 g/dl (13.5-17.5); LYMPH # 1.6 10^3/uL (1.5-5.0); LYMPH % 17.9 % (24.0-44.0); MEAN CORPUSCULAR HEMOGLOBIN 30.1 pg (27.0-33.0); MEAN CORPUSCULAR HGB CONC 34.8 g/dl (32.0-36.5); MEAN CORPUSCULAR VOLUME 86.6 fl (80.0-96.0); MONO # 0.6 10^3/uL (0.0-0.8); MONO % 6.5 % (2.0-8.0); NEUTROPHILS # 6.5 10^3/uL (1.5-8.5); NEUTROPHILS % 74.9 % (36.0-66.0); RED BLOOD COUNT 2.39 10^6/uL (4.30-6.10); WHITE BLOOD COUNT 8.7 10^3/uL (4.0-10.0)
[2021-03-03 06:59] LABS: HEMATOCRIT 20.7 % (42.0-52.0)
[2021-03-03 07:00] LABS: PLATELET COUNT, AUTOMATED 26 10^3/uL (150-450)
[2021-03-03 07:08] LABS: PROTHROMBIN TIME 23.1 SECONDS (12.7-14.5)
[2021-03-03] MEDS: HumaLOG INSULIN (NovoLOG) PER UNIT SC SCH (07:30)
[2021-03-03 07:43] LABS: CALCIUM LEVEL 7.8 MG/DL (8.8-10.2); CREATININE FOR GFR 3.84 MG/DL (0.70-1.30)
[2021-03-03 07:44] LABS: ALBUMIN 2.9 GM/DL (3.2-5.2); BILIRUBIN,TOTAL 2.9 MG/DL (0.2-1.0); TOTAL PROTEIN 4.6 GM/DL (6.4-8.2)
[2021-03-03] MEDS: MIDODRINE 5 MG TAB PO SCH ×3 (08:07→17:03)
[2021-03-03] MEDS: SUCRALFATE 1 GM TAB PO SCH ×4 (08:07→20:44)
[2021-03-03] MEDS: rifAXIMin 550 MG TAB (XIFAXAN) PO SCH ×2 (08:07→20:43)
[2021-03-03] MEDS: OMEPRAZOLE 20 MG CAP PO SCH (08:07)
[2021-03-03 08:28] LABS: MAGNESIUM LEVEL 1.6 MG/DL (1.8-2.4)
[2021-03-03] MEDS: PANTOPRAZOLE 40MG VIAL (C9113 PER 1) IV SCH ×2 (09:47→20:43)
[2021-03-03] MEDS: ONDANSETRON 4MG/2ML VIAL IV PRN (10:30)
[2021-03-03] MEDS: KCL 10MEQ/100ML SWI (KRUN) 10 MEQ in IV 1 EA IV SCH ×2 (10:37→11:28)
[2021-03-03] MEDS ORDERED: MAG SULF 1GM/100ML (MAG RUN) 1 GM in IV 1 EA IV ONE (11:00)
[2021-03-03] MEDS: cefTRIAXone SOD 1 GM in D5W MINI-BAG PLUS 50 ML IV SCH (11:28)
[2021-03-03] MEDS: OCTREOTIDE ACETATE 1,200 MCG in NS 238.8 ML IV SCH (11:50)
--- NOTE | 2021-03-03 13:38 | IPN ---
PROGRESS NOTE DATE: 03/03/2021 SUBJECTIVE: Mr. Glez is not doing well. He was seen and examined at the bedside this morning. He had been transferred to the hemodialysis unit but prior to getting hooked up to the dialysis machine he experienced recurrent bouts of blood streaked vomitus. He has coagulopathy and severe thrombocytopenia on labs. Primary Team has called a Surgery consult and ordered further platelet transfusion along with blood cell transfusion. I discussed with both the patient and his that he is too unstable to undergo an attempt at hemodialysis today. OBJECTIVE: VITAL SIGNS: Temperature is 98.4, pulse is 78, respiratory rate is 16, blood pressure is 105/63, saturating 97% on room air. INTAKE AND OUTPUT: Intake yesterday was 1.5 liters of which 900 ml was oral intake and the remaining 600 ml was blood products. Weight on the bed scale today is not recorded. He did have a large volume paracentesis yesterday with 6 liters of fluid removed. GENERAL: Patient is seen lying in bed, frail and chronically ill-appearing male. He is oriented and in no acute distress but he is holding a nausea bag. There is decreased lean muscle mass and muscle wasting on appearance. HEENT: Tongue is moist. NECK: Supple. Jugular veins are elevated. Tunneled hemodialysis catheter is in place with some old clotted blood. HEART: Regular, S1 and S2. LUNGS: Symmetric air entry anterior auscultation only, diminished at the bases. ABDOMEN: Soft and less distended than yesterday status post large volume paracentesis yesterday. GENITOURINARY: Rivera catheter present with minimal urine in the bag. EXTREMITIES: Trace to 1+ edema in the legs. NEUROLOGIC: Moves his extremities on command, answers simple questions appropriately and is oriented x3. PSYCHIATRIC: He is depressed. SKIN: Generalized pallor and also diffuse ecchymosis most prominent on his arms. LABORATORY DATA: Sodium 137, potassium is 3.0, bicarbonate 22, BUN 19, creatinine 3.4. Magnesium 1.6, albumin 2.9, hemoglobin 7.2, platelets 26, INR 2.0. INPATIENT MEDICATIONS: Reviewed by myself. I note that the Carafate dose was increased by the primary team and he was started on Protonix 40 mg IV b.i.d. and Zofran p.r.n. He is also on omeprazole 20 mg daily which I am stopping given that he is on Protonix IV. He is receiving potassium and magnesium supplementation. He continues on Ceftriaxone. He is on an Octreotide infusion now. He continues on Midodrine 15 mg three times a day. PROBLEMS: 1. Acute oliguric renal failure in this patient with decompensated cirrhosis and significant sequelae of endstage liver disease including coagulopathy, ascites, thrombocytopenia and has had recurrent infectious issues. Patient's current MELD score is 32 points giving an estimated 90 day mortality of 65%. I feel that he is unlikely to tolerate hemodialysis. We were able to accomplish a hemodialysis treatment on Monday with very gentle settings on the dialysis machine and with q. 1 hourly albumin support. There was a plan for hemodialysis this morning but the patient had recurrent blood streaked vomiting and we subsequently held off as I feel he is too unstable to dialyze today. I have discussed with the patient and his that he has an extremely poor prognosis. We will continue with medical measures until the patient decides otherwise. 2. Decompensated cirrhosis with recurrent large volume ascites, history of hepatic encephalopathy, worsening thrombocytopenia, history of GI bleeding, dependent on weekly paracentesis, and with current MELD score of 32 giving 90 day mortality of 65%. Today, with acute blood streaked vomiting. Primary team is transfusing platelets and PRBC. INR is elevated at 2.0. He is high risk for further spontaneous bleed. He also has renal failure and is unlikely to tolerate regular dialysis and all of the above has been explained to the patient and his . 3. Chronic hypotension in the setting of cirrhosis on maximum dose Midodrine complicating our ability to dialyze him. 4. Severe thrombocytopenia with a history of recurrent GI bleed, presently with blood streaked vomiting. The primary team has called surgical consult and I note he is on increased dose of Carafate, is also on IV Protonix (I stopped the omeprazole). He is also on an Octreotide infusion now. 5. Anemia, acute on chronic in this patient with a history of GI bleed and currently with bloody vomiting and renal failure. Blood transfusion directed by primary service. 6. Diastolic congestive heart failure and also cirrhosis with ascites. He had six liters of paracentesis yesterday. He received albumin post-procedure. We are holding off on hemodialysis today as the patient is unstable with hematemesis. 7. Disposition: A very poor prognosis, MELD-NA score of 32, 65% 90 day mortality. Both liver failure and renal failure and significant coagulopathy and severe thrombocytopenia, chronic hypotension, and multiple other medical issues all complicating his care. The primary team is in conversation with [facility] but I feel the patient's overall prognosis is very poor.
--- NOTE | 2021-03-03 13:38 | CR ---
CONSULTATION DATE: 03/03/2021 REASON FOR CONSULTATION: GI bleed, no superintendent available. BRIEF HISTORY OF PRESENT ILLNESS: Patient is a 66-year-old male with history of ascites, progressive renal failure, hepatic encephalopathy with uncontrolled ascites, chronic thrombocytopenia, history of congestive heart failure, who was admitted for multiple issues about a week ago, started on dialysis and unfortunately had a significant hematocrit drop concerning for bleed but once the patient was brought to the floor he had some hematemesis. His platelet count is 26,000 and his hematocrit was 20. His PT/INR was elevated as well as his PTT. I asked him for recommendations concerning his GI bleed. He has had a recent upper endoscopy which showed a Billroth-II procedure with no evidence of ulceration, no evidence of gastritis and essentially had an endoscopy just a little over two weeks ago for the same GI bleeding issue. PHYSICAL EXAMINATION: Patient is lethargic in bed, not complaining of any pain or discomfort who reveals lungs which are clear anteriorly and superiorly although diminished. Heart is regular. Abdomen is distended, tympanitic but mostly this is secondary to the significant ascites that is appreciated on his abdominal exam. No peritoneal signs are appreciated. No tenderness. He has numerous petechial/hemorrhagic areas all across his abdomen, all across his forearms, his previous IJ insertion site. IMPRESSION AND PLAN: The patient had some hematemesis and no longer has any of this at the time I am visiting him and none reported by the nurse either and this may be under control at this time, however unfortunately, we do not have an idea of where this is coming from at this time. It may easily be from his low platelet count given that it appears he is having some spontaneous bleeds of his skin and minimal irritation in the stomach itself would be easily a source or even the concern previously was possible varices which were not appreciated on the last upper endoscopy, could be present and we may not have been visualized the last time given some hypotensive episodes/low volume episodes. In general, from a surgical standpoint no surgical intervention is necessary. If he has ongoing bleeding, I would recommend a CT angiogram/interventional radiology to possibly find a source that may be amenable to treatment. Given that I do not perform banding of esophageal varices, if this is a potential abnormality with a negative workup by interventional radiology/CT angio then I would recommend GI evaluation, if not available here may need to be transferred out for this. Overall, his situation is quite tenuous and does not appear to be a candidate for a TIPS procedure given his previous episodes of hepatic encephalopathy, also have questions whether he may have some ongoing issues at this point with encephalopathy given his overall sedation and repeating lab work concerning this may be reasonable. I would be very aggressive about reversing any of his abnormal liver function tests such as PT/INR/PTT and try to bump up his platelet count as best as you can. Obviously, decreasing his overall volume is important as well as you know and that is what I understand you have been trying to do but this may be that this has a very high likelihood of failure and his overall prognosis is extremely poor. I would recommend given overall that this be discussed with nephrology concerning whether he should be a DNR/DNI and the exact plans for his potential resuscitation should this be an issue.
--- NOTE | 2021-03-03 14:10 | IPNPDOC ---
Text Note Date of Service The patient was seen on 03/03/21. NOTE SUBJECTIVE: Patient is seen and examined this morning at bedside. He states he is feeling about the same today. He feels tired. He denies any nausea or abdominal pain this morning a evaluation. Later, after he developed hematemesis 1 brought up to dialysis, he denied abdominal pain but stated he was feeling quite nauseous. Per dialysis nurse, the vomitus appeared orange with bright red blood streaking. Patient denies any diarrhea. Patient did have paracentesis yesterday with 6 L removed. Patient was upgraded to the PCU for further evaluation / monitoring. OBJECTIVE: VITAL SIGNS: See below GENERAL: Alert, comfortable, in no acute distress. Patient appears thin and tired with some muscle wasting. HEENT: Normocephalic, atraumatic, moist mucous membranes NECK: Supple, trachea midline, no lymphadenopathy CARDIOVASCULAR: Regular rate and rhythm, normal S1 and S2. No murmurs, rubs, or gallops RESPIRATORY: Clear to auscultation bilaterally with equal air entry bilaterally. No wheezing, rhonchi, or rales. ABDOMEN: Soft, nondistended. Nontender, bowel sounds present. EXTREMITIES: 1+ pitting edema in bilateral lower extremities extending up to the hips NEUROLOGIC: No focal deficits appreciated PSYCHIATRIC: Mood and affect appropriate ASSESSMENT/PLAN: 66-year-old male with history of cirrhosis secondary to unknown cause/possibly FLOOD, and complications of hepatic encephalopathy, recurrent ascites requiring weekly paracentesis, GAVE, thrombocytopenia, with additional past medical history of pancreatic adenocarcinoma currently in remission status post Whipple procedure and chemotherapy, recurrent bacteremia, diabetes mellitus, chronic anemia, and diastolic CHF who presented to the hospital with oliguric renal failure now requiring hemodialysis #Oliguric renal failure Patient has had a dialysis catheter inserted and initially had difficulty franco erating dialysis due to hypotension. Nephrology is consulted, appreciate recommendations Patient tolerated dialysis on Monday with but was unable to proceed today due to vomiting. Further dialysis per nephrology. #Decompensated liver cirrhosis, unknown cause/possibly FLOOD, with current ascites and a history of hepatic encephalopathy Patient has additional complications including GAVE, GI bleeding, and thrombocytopenia. Last paracentesis on 03/02/2021 with 6 L removed. Per patient's outpatient rn trauma, patient should not have more than 6 L removed during paracentesis and should receive 50 g of albumin after paracentesis. #Hematemesis Patient began vomiting this morning after being brought up to dialysis. He was never started on dialysis and was brought back down to the floor for management Started patient on IV Protonix twice daily and octreotide drip. Patient will be continued on oral Carafate as well. Zofran as needed for nausea. Patient will be n.p.o. except medications. Due to no cone treater on-call, Dr. Land/general surgery was consulted for evaluation. Patient is currently planned for transfer to a facility with gastroenterology available to manage GI bleed. #Hypotension, stable Likely multifactorial with the patient's cirrhosis playing a large role Continue midodrine 15 mg 3 times a day #Possible SBP secondary to Staphylococcus hominis, resolved Culture from paracentesis fluid grew few staph hominis. May be contamination, but patient is high risk due to history of recurrent bacteremia and sepsis. Completed 5-day course of IV antibiotics with vancomycin, will discontinue today. 2 blood cultures drawn on 02/20/2021 are negative after 5 days Repeat blood culture drawn on 02/27/2021 is negative at 72 hours Continue SBP prophylaxis with 1 g IV ceftriaxone daily while inpatient #ESBL Klebsiella on sputum culture, resolved Status post course of IV Zosyn for 9 days. #Recurrent bacteremia on prior admissions Previously treated for E. coli bacteremia twice and most recently for Enterococcus faecalis and ESBL Klebsiella Blood cultures drawn on this admission have been negative. #Thrombocytopenia Secondary to cirrhosis vs other cause. Check HIT Ab and peripheral smear. Avoid anticoagulants Due to hematemesis with platelet count below 30,000, given 1 unit of platelets today Transfuse platelets for platelet count less than 10,000 or less than 30,000 if bleeding. #Acute on chronic anemia Patient has history of GI bleeding and anemia of chronic disease Required 1 unit PRBCs yesterday. Patient had hematemesis today and was transfused with 2 additional units PRBCs. We will repeat CBC tonight Continue monitor H&H daily and transfuse for hemoglobin less than 7 #History of pancreatic adenocarcinoma, currently in remission Status post chemotherapy and Whipple procedure in 2017 Follows with hematology oncology in [facility] #Diabetes mellitus Currently not on medication Developed after Whipple procedure, may be due to pancreatic insufficiency #CHF with preserved ejection fraction Patient currently hypervolemic, avoid diuretics due to hypotension Fluid management with HD #Deconditioning PT/OT ordered DVT prophylaxis: Teds and sequentials. Avoid medical prophylaxis due to thrombocytopenia Disposition: Pending clinical improvement and potential transfer to outside facility. We were in contact with multiple liver transplant services today but unfortunately the patient has not been accepted for transfer at this point. Likely we will contact the hospital with gastroenterology tomorrow for transfer. VS,Fishbone, I+O VS, Fishbone, I+O Laboratory Tests 03/02/21 19:10 03/03/21 06:41 Vital Signs Date Time Temp Pulse Resp B/P (MAP) Pulse Ox O2 Delivery O2 Flow Rate FiO2 03/03/21 12:55 98.5 71 18 100/65 100 Room Air 03/02/21 21:20 96 I&O- Last 24 Hours up to 6 AM 03/03/21 06:00 Intake Total 1630.0 ml Output Total 150 ml Balance 1480.0 ml KVNG CAMPA D.O. Mar 03, 2021 14:10 DHAVAL VAUGHAN MD Mar 10, 2021 15:07
[2021-03-03 21:05] LABS: HEMATOCRIT 26.9 % (42.0-52.0); MEAN CORPUSCULAR HEMOGLOBIN 30.4 pg (27.0-33.0); MEAN CORPUSCULAR HGB CONC 35.7 g/dl (32.0-36.5); MEAN CORPUSCULAR VOLUME 85.1 fl (80.0-96.0); RED BLOOD COUNT 3.16 10^6/uL (4.30-6.10); WHITE BLOOD COUNT 9.8 10^3/uL (4.0-10.0)
[2021-03-03 21:06] LABS: PLATELET COUNT, AUTOMATED 52 10^3/uL (150-450)
[2021-03-03 21:07] LABS: HEMOGLOBIN 9.6 g/dl (13.5-17.5)
[2021-03-04] VITALS: BP 100/64
[2021-03-04 04:00] VITALS: BP 102/65
[2021-03-04] MEDS: SODIUM CHLORIDE 0.9% INJ 10 ML SYR IV SCH ×2 (06:03→17:08)
[2021-03-04 06:25] LABS: BASO % 0.1 % (0.0-1.0); EOS % 0.1 % (0.0-3.0); HEMOGLOBIN 10.2 g/dl (13.5-17.5); LYMPH # 1.3 10^3/uL (1.5-5.0); LYMPH % 14.1 % (24.0-44.0); MEAN CORPUSCULAR HGB CONC 35.2 g/dl (32.0-36.5); MEAN CORPUSCULAR VOLUME 85.3 fl (80.0-96.0); MONO # 0.6 10^3/uL (0.0-0.8); MONO % 6.3 % (2.0-8.0); NEUTROPHILS # 7.2 10^3/uL (1.5-8.5); NEUTROPHILS % 79.1 % (36.0-66.0); WHITE BLOOD COUNT 9.1 10^3/uL (4.0-10.0)
[2021-03-04 06:26] LABS: PLATELET COUNT, AUTOMATED 64 10^3/uL (150-450)
[2021-03-04 06:36] LABS: INR 1.86; PROTHROMBIN TIME 21.8 SECONDS (12.7-14.5)
[2021-03-04 07:07] LABS: ALBUMIN 2.7 GM/DL (3.2-5.2); BILIRUBIN,TOTAL 4.8 MG/DL (0.2-1.0); CALCIUM LEVEL 7.7 MG/DL (8.8-10.2); CREATININE FOR GFR 3.67 MG/DL (0.70-1.30); GLOMERULAR FILTRATION RATE 17.9 (>49); POTASSIUM SERUM 3.3 MEQ/L (3.5-5.1); TOTAL PROTEIN 4.7 GM/DL (6.4-8.2)
[2021-03-04 08:00] VITALS: BP 133/87
[2021-03-04] MEDS ORDERED: POTASSIUM CHLORIDE 10MEQ SR TABLET PO ONE (08:00)
[2021-03-04] MEDS: PANTOPRAZOLE 40MG VIAL (C9113 PER 1) IV SCH ×2 (08:12→21:10)
[2021-03-04] MEDS: rifAXIMin 550 MG TAB (XIFAXAN) PO SCH ×2 (08:12→21:11)
[2021-03-04] MEDS: SUCRALFATE 1 GM TAB PO SCH ×4 (08:12→21:10)
[2021-03-04] MEDS: MIDODRINE 5 MG TAB PO SCH ×3 (08:12→16:30)
[2021-03-04 08:33] LABS: MAGNESIUM LEVEL 1.7 MG/DL (1.8-2.4)
[2021-03-04] MEDS: OCTREOTIDE ACETATE 1,200 MCG in NS 238.8 ML IV SCH (09:41)
[2021-03-04] MEDS ORDERED: SODIUM CHLORIDE 0.9% 1000ML IV PRN (11:20)
[2021-03-04] MEDS: cefTRIAXone SOD 1 GM in D5W MINI-BAG PLUS 50 ML IV SCH (11:38)
[2021-03-04 12:00] VITALS: BP 116/68
--- NOTE | 2021-03-04 13:13 | IPNPDOC ---
Text Note Date of Service The patient was seen on 03/04/21. NOTE General surgery. Dr Land The patient is a 66-year-old male with history of uncontrolled ascites, progressive liver and renal failure, hepatic encephalopathy, chronic thro mbocytopenia, with decreased in hematocrit and hematemesis, general surgery was consulted for further recommendations. The patient is resting in bed this morning. His is present and his nurse i s present. They report he has had no further vomiting or hematemesis. He denies abdominal pain currently. Denies nausea. Afebrile. Heart rate 91, respiratory rate 18, blood pressure 116/68, 99% room air. Resting in bed, awake and alert. Abdomen is soft, distended, nontender Extremities with edema noted. Labs this morning indicate hemoglobin 10.2, this is compared with 9.6 last evening. Hematocrit 29, compared with 26.9 last evening. Platelets 64 Status post albumin, 2 units PRBC and 1 unit platelets 03/03/2021. Assessment/plan GIB/Hematemesis. The patient is reviewed as per Dr Land. Currently the patient is not having any additional vomiting or hematemesis, denies abdominal pain or nausea. Status post 2 units PRBC and 1 unit platelets 03/03/2021. Hemoglobin today is noted to be 10.2, platelets 64 EGD as per gastroenterology 02/08/2021 indicated patent Billroth II anastomosis, no varices, ulcers or vascular ectasia, no specimens collected. No surgical intervention is recommended at this time. If the patient has ongoing or recurrent bleeding would recommend to possibly consider CTA/IR to possibly find a bleeding source which would be amenable to treatment versus GI evaluation. VS,Fishbone, I+O VS, Fishbone, I+O Laboratory Tests 03/03/21 20:45 03/04/21 06:05 Vital Signs Date Time Temp Pulse Resp B/P (MAP) Pulse Ox O2 Delivery O2 Flow Rate FiO2 03/04/21 08:00 98.4 88 17 133/87 (102) 100 Room Air 03/02/21 21:20 96 I&O- Last 24 Hours up to 6 AM 03/04/21 06:00 Intake Total 1832 ml Output Total 350 ml Balance 1482 ml Shreya Schmidt Mar 04, 2021 11:46
[2021-03-04 15:02] LABS: HEMOGLOBIN 10.9 g/dl (13.5-17.5); MEAN CORPUSCULAR HEMOGLOBIN 30.8 pg (27.0-33.0); MEAN CORPUSCULAR HGB CONC 36.3 g/dl (32.0-36.5); MEAN CORPUSCULAR VOLUME 84.7 fl (80.0-96.0); RED BLOOD COUNT 3.54 10^6/uL (4.30-6.10); WHITE BLOOD COUNT 11.8 10^3/uL (4.0-10.0)
[2021-03-04 15:03] LABS: PLATELET COUNT, AUTOMATED 67 10^3/uL (150-450)
[2021-03-04 16:00] VITALS: BP 128/82
--- NOTE | 2021-03-04 17:11 | IPNPDOC ---
Text Note Date of Service The patient was seen on 03/04/21. NOTE SUBJECTIVE: Patient is seen and examined this morning at bedside. He states he is feeling tired this morning. He denies any complaints. No nausea or vomiting overnight. No abdominal pain. Per his the patient is little more drowsy than normal. He did miss his scheduled dialysis session yesterday due to hematemesis. He did not require any further blood transfusions overnight. OBJECTIVE: VITAL SIGNS: See below GENERAL: Alert, comfortable, in no acute distress. Patient appears thin and tired with some muscle wasting. HEENT: Normocephalic, atraumatic, moist mucous membranes NECK: Supple, trachea midline, no lymphadenopathy CARDIOVASCULAR: Regular rate and rhythm, normal S1 and S2. No murmurs, rubs, or gallops RESPIRATORY: Clear to auscultation bilaterally with equal air entry bilaterally. No wheezing, rhonchi, or rales. ABDOMEN: Soft, nondistended. Nontender, bowel sounds present. EXTREMITIES: 1+ pitting edema in bilateral lower extremities extending up to the hips NEUROLOGIC: No focal deficits appreciated PSYCHIATRIC: Mood and affect appropriate ASSESSMENT/PLAN: 66-year-old male with history of cirrhosis secondary to unknown cause/possibly FLOOD, and complications of hepatic encephalopathy, recurrent ascites requiring weekly paracentesis, GAVE, thrombocytopenia, with additional past medical history of pancreatic adenocarcinoma currently in remission status post Whipple procedure and chemotherapy, recurrent bacteremia, diabetes mellitus, chronic anemia, and diastolic CHF who presented to the hospital with oliguric renal failure now requiring hemodialysis #Oliguric renal failure Patient has had a dialysis catheter inserted and initially had difficulty tolerating dialysis due to hypotension. Nephrology is consulted, appreciate recommendations Patient tolerated dialysis on Monday and will go again today. Further dialysis per nephrology. #Decompensated liver cirrhosis, unknown cause/possibly FLOOD, with current ascites and a history of hepatic encephalopathy Patient has additional complications including GAVE, GI bleeding, and t hrombocytopenia. Last paracentesis on 03/02/2021 with 6 L removed. Per patient's outpatient director of safety and security, patient should not have more than 6 L removed during paracentesis and should receive 50 g of albumin after paracentesis. #Hematemesis, resolved Continue on IV Protonix twice daily and octreotide drip. Patient will be continued on oral Carafate as well. Zofran as needed for nausea. Patient will be n.p.o. except medications Due to no artillery meteorological man on-call, Dr. Land/general surgery was consulted for evaluation. We have been trying to transfer the patient for gastroenterology evaluation, however there is limited bed availability at outside facilities. #Hypotension, stable Likely multifactorial with the patient's cirrhosis playing a large role Continue midodrine 15 mg 3 times a day #Possible SBP secondary to Staphylococcus hominis, resolved Culture from paracentesis fluid grew few staph hominis. May be contamination, but patient is high risk due to history of recurrent bacteremia and sepsis. Completed 5-day course of IV antibiotics with vancomycin, will discontinue today. 2 blood cultures drawn on 02/20/2021 are negative after 5 days Repeat blood culture drawn on 02/27/2021 is negative after 5 days. Continue SBP prophylaxis with 1 g IV ceftriaxone daily while inpatient #ESBL Klebsiella on sputum culture, resolved Status post course of IV Zosyn for 9 days. #Recurrent bacteremia on prior admissions Previously treated for E. coli bacteremia twice and most recently for Enterococcus faecalis and ESBL Klebsiella Blood cultures drawn on this admission have been negative. #Thrombocytopenia Secondary to cirrhosis vs other cause. HIT Ab pending. Avoid anticoagulants Status post 1 unit platelets on 03/03/2021 due to hematemesis and platelet coun t less than 30,000. Transfuse platelets for platelet count less than 10,000 or less than 30,000 if bleeding. #Acute on chronic anemia Patient has history of GI bleeding and anemia of chronic disease Episode of hematemesis on 03/03/2021 which appears to have resolved. Now status post 2 units PRBCs. Continue to trend H/H. Transfuse for hemoglobin less than 7 #History of pancreatic adenocarcinoma, currently in remission Status post chemotherapy and Whipple procedure in 2017 Follows with hematology oncology in [facility] #Diabetes mellitus Currently not on medication Developed after Whipple procedure, may be due to pancreatic insufficiency #CHF with preserved ejection fraction Patient currently hypervolemic, avoid diuretics due to hypotension Fluid management with HD #Deconditioning PT/OT ordered DVT prophylaxis: Teds and sequentials. Avoid medical prophylaxis due to thrombocytopenia Disposition: Pending clinical improvement and potential transfer to outside [facility] for gastroenterology evaluation VS,Fishbone, I+O VS, Fishbone, I+O Laboratory Tests 03/03/21 20:45 03/04/21 06:05 03/04/21 14:45 Vital Signs Date Time Temp Pulse Resp B/P (MAP) Pulse Ox O2 Delivery O2 Flow Rate FiO2 03/04/21 16:00 99.0 85 16 128/82 (97) 98 Room Air 03/02/21 21:20 96 I&O- Last 24 Hours up to 6 AM 03/04/21 06:00 Intake Total 1832 ml Output Total 350 ml Balance 1482 ml GME ATTESTATION GME ATTESTATION My faculty preceptor for this patient encounter was physically present during the encounter and was fully available. All aspects of the patient interview, examination, medical decision making process, and medical care plan development were reviewed and approved by the faculty preceptor. The faculty preceptor is aware and concurs with the plan as stated in the body of this note and will attest to such by his/her cosignature. ATTENDING NOTE I, Estefany Hazel, have independently examined this patient and performed my own physical exam, as well as reviewed the documentation and edited where necessary with the resident. For medical students we have performed the physical exam together and discussed medical decision making and I have verified the history. I have discussed in detail with the resident / student the findings and plan of treatment as documented by the resident / student and edited their note. I agree with their findings and treatment plan and have edited their documentation. I will continue to follow the patient during this hospital stay. KVNG CAMPA D.O. Mar 04, 2021 17:11 ESTEFANY HAZEL MD Mar 04, 2021 18:11
[2021-03-04 20:00] VITALS: BP 120/60
[2021-03-04 22:22] LABS: HEMATOCRIT 26.6 % (42.0-52.0); HEMOGLOBIN 9.4 g/dl (13.5-17.5); MEAN CORPUSCULAR HEMOGLOBIN 29.9 pg (27.0-33.0); MEAN CORPUSCULAR HGB CONC 35.3 g/dl (32.0-36.5); MEAN CORPUSCULAR VOLUME 84.7 fl (80.0-96.0); RED BLOOD COUNT 3.14 10^6/uL (4.30-6.10)
[2021-03-04 22:24] LABS: PLATELET COUNT, AUTOMATED 69 10^3/uL (150-450)
[2021-03-05] VITALS: BP 139/65
[2021-03-05 04:00] VITALS: BP 119/59
[2021-03-05] MEDS: SODIUM CHLORIDE 0.9% INJ 10 ML SYR IV SCH ×2 (05:37→17:01)
[2021-03-05 06:02] LABS: BASO % 0.2 % (0.0-1.0); EOS # 0.1 10^3/uL (0.0-0.5); EOS % 0.5 % (0.0-3.0); HEMATOCRIT 25.7 % (42.0-52.0); HEMOGLOBIN 9.1 g/dl (13.5-17.5); LYMPH # 1.1 10^3/uL (1.5-5.0); LYMPH % 11.7 % (24.0-44.0); MEAN CORPUSCULAR HEMOGLOBIN 30.5 pg (27.0-33.0); MEAN CORPUSCULAR HGB CONC 35.4 g/dl (32.0-36.5); MEAN CORPUSCULAR VOLUME 86.2 fl (80.0-96.0); MONO # 0.6 10^3/uL (0.0-0.8); MONO % 6.6 % (2.0-8.0); NEUTROPHILS # 7.4 10^3/uL (1.5-8.5); NEUTROPHILS % 80.6 % (36.0-66.0); RED BLOOD COUNT 2.98 10^6/uL (4.30-6.10); WHITE BLOOD COUNT 9.1 10^3/uL (4.0-10.0)
[2021-03-05 06:03] LABS: PLATELET COUNT, AUTOMATED 76 10^3/uL (150-450)
[2021-03-05 06:20] LABS: ALBUMIN 2.6 GM/DL (3.2-5.2); BILIRUBIN,TOTAL 3.7 MG/DL (0.2-1.0); CALCIUM LEVEL 7.5 MG/DL (8.8-10.2); CREATININE FOR GFR 2.87 MG/DL (0.70-1.30); GLOMERULAR FILTRATION RATE 23.7 (>49); MAGNESIUM LEVEL 1.7 MG/DL (1.8-2.4); POTASSIUM SERUM 3.6 MEQ/L (3.5-5.1); TOTAL PROTEIN 4.6 GM/DL (6.4-8.2)
[2021-03-05 06:20] LABS: INR 1.94; PROTHROMBIN TIME 22.6 SECONDS (12.7-14.5)
[2021-03-05 08:00] VITALS: BP 149/58
[2021-03-05] MEDS: MIDODRINE 5 MG TAB PO SCH ×3 (08:15→17:00)
[2021-03-05] MEDS: SUCRALFATE 1 GM TAB PO SCH ×4 (08:15→20:47)
[2021-03-05] MEDS: MAG SULF 1GM/100ML (MAG RUN) 1 GM in IV 1 EA IV SCH ×2 (08:15→10:09)
[2021-03-05] MEDS: PANTOPRAZOLE 40MG VIAL (C9113 PER 1) IV SCH ×2 (08:15→20:45)
[2021-03-05] MEDS: OCTREOTIDE ACETATE 1,200 MCG in NS 238.8 ML IV SCH (10:09)
[2021-03-05] MEDS: rifAXIMin 550 MG TAB (XIFAXAN) PO SCH ×2 (10:09→20:47)
[2021-03-05 12:00] VITALS: BP 126/71
[2021-03-05] MEDS: cefTRIAXone SOD 1 GM in D5W MINI-BAG PLUS 50 ML IV SCH (12:54)
--- NOTE | 2021-03-05 13:09 | IPNPDOC ---
Text Note Date of Service The patient was seen on 03/05/21. NOTE SUBJECTIVE: Patient is seen and examined this morning at bedside. He appears somewhat tired this morning and states he did not sleep well. Otherwise he denies pain or any new issues. He tolerated dialysis well yesterday. OBJECTIVE: VITAL SIGNS: See below GENERAL: Alert, comfortable, in no acute distress. Patient appears thin and tired with some muscle wasting. HEENT: Normocephalic, atraumatic, moist mucous membranes NECK: Supple, trachea midline, no lymphadenopathy CARDIOVASCULAR: Regular rate and rhythm, normal S1 and S2. No murmurs, rubs, or gallops RESPIRATORY: Clear to auscultation bilaterally with equal air entry bilaterally. No wheezing, rhonchi, or rales. ABDOMEN: Soft, nondistended. Nontender, bowel sounds present. EXTREMITIES: 1+ pitting edema in bilateral lower extremities extending up to the hips NEUROLOGIC: No focal deficits appreciated PSYCHIATRIC: Mood and affect appropriate ASSESSMENT/PLAN: 66-year-old male with history of cirrhosis secondary to unknown cause/possibly FLOOD, and complications of hepatic encephalopathy, recurrent ascites requiring weekly paracentesis, GAVE, thrombocytopenia, with additional past medical history of pancreatic adenocarcinoma currently in remission status post Whipple procedure and chemotherapy, recurrent bacteremia, diabetes mellitus, chronic anemia, and diastolic CHF who presented to the hospital with oliguric renal failure now requiring hemodialysis #Oliguric renal failure Patient has had a dialysis catheter inserted and initially had difficulty tolerating dialysis due to hypotension. Nephrology is consulted, appreciate recommendations Patient tolerating dialysis, last session yesterday. Further dialysis per nephrology. #Decompensated liver cirrhosis, unknown cause/possibly FLOOD, with current ascites and a history of hepatic encephalopathy Patient has additional complications including GAVE, GI bleeding, and thrombocytopenia. Last paracentesis on 03/02/2021 with 6 L removed. Per patient's outpatient staff combat information center officer, patient should not have more than 6 L removed during paracentesis and should receive 50 g of albumin after paracentesis. #Hematemesis, resolved Continue on IV Protonix twice daily and octreotide drip. Patient will be continued on oral Carafate as well. Zofran as needed for nausea. Due to no grease and tallow pumper on-call, Dr. Land/general surgery was consulted for evaluation. We have been trying to transfer the patient for gastroenterology evaluation, however there is limited bed availability at outside facilities. Will advance diet as tolerated today. #Hypotension, stable Likely multifactorial with the patient's cirrhosis playing a large role Continue midodrine 15 mg 3 times a day #Possible SBP secondary to Staphylococcus hominis, resolved Culture from paracentesis fluid grew few staph hominis. May be contamination, but patient is high risk due to history of recurrent bacteremia and sepsis. Completed 5-day course of IV antibiotics with vancomycin, will discontinue today. 2 blood cultures drawn on 02/20/2021 are negative after 5 days Repeat blood culture drawn on 02/27/2021 is negative after 5 days. Continue SBP prophylaxis with 1 g IV ceftriaxone daily while inpatient #ESBL Klebsiella on sputum culture, resolved Status post course of IV Zosyn for 9 days. #Recurrent bacteremia on prior admissions Previously treated for E. coli bacteremia twice and most recently for Enterococcus faecalis and ESBL Klebsiella Blood cultures drawn on this admission have been negative. #Thrombocytopenia, improving Secondary to cirrhosis vs other cause. HIT Ab pending. Avoid anticoagulants Status post 1 unit platelets on 03/03/2021 due to hematemesis and platelet count less than 30,000. Transfuse platelets for platelet count less than 10,000 or less than 30,000 if bleeding. #Chronic anemia Patient has history of GI bleeding and anemia of chronic disease Episode of hematemesis on 03/03/2021 which appears to have resolved. Now s table status post 2 units PRBCs. Continue to trend H/H. Transfuse for hemoglobin less than 7 #History of pancreatic adenocarcinoma, currently in remission Status post chemotherapy and Whipple procedure in 2017 Follows with hematology oncology in [facility] Limits his candidacy for liver transplant as he is only 4 years out from surgical resection #Diabetes mellitus Currently not on medication Developed after Whipple procedure, may be due to pancreatic insufficiency #CHF with preserved ejection fraction Patient currently hypervolemic, avoid diuretics due to hypotension Fluid management with HD #Deconditioning PT/OT ordered DVT prophylaxis: Teds and sequentials. Avoid medical prophylaxis due to thrombocytopenia Disposition: Pending clinical improvement, possible transfer to [facility] for evaluation for liver transplantation pending VS,Fishbone, I+O VS, Fishbone, I+O Laboratory Tests 03/04/21 14:45 03/04/21 21:52 03/05/21 05:39 Vital Signs Date Time Temp Pulse Resp B/P (MAP) Pulse Ox O2 Delivery O2 Flow Rate FiO2 03/05/21 08:00 98.6 95 20 149/58 (88) 98 Room Air 03/02/21 21:20 96 I&O- Last 24 Hours up to 6 AM 03/05/21 06:00 Intake Total 180 ml Output Total 750 ml Balance -570 ml GME ATTESTATION GME ATTESTATION My faculty preceptor for this patient encounter was physically present during the encounter and was fully available. All aspects of the patient interview, examination, medical decision making process, and medical care plan development were reviewed and approved by the faculty preceptor. The faculty preceptor is aware and concurs with the plan as stated in the body of this note and will attest to such by his/her cosignature. ATTENDING NOTE I, Estefany Hazel, have independently examined this patient and performed my own physical exam, as well as reviewed the documentation and edited where necessary with the resident. For medical students we have performed the physical exam together and discussed medical decision making and I have verified the history. I have discussed in detail with the resident / student the findings and plan of treatment as documented by the resident / student and edited their note. I agree with their findings and treatment plan and have edited their documentation. I will continue to follow the patient during this hospital stay. - Extensive discussion with patient and family this afternoon about goals of care - Patient and family were informed the patient is not a candidate for liver transplant at [place] or [facility] - Informed patient and family of his extremely poor prognosis; MELD score 33; 55.6% mortality - Patient would likely not be a candidate for liver transplant at other facilities, however, we'll try if they request - Discussed CODE STATUS and DNR/DNI; however, patient does not want to change h is status until he gets clarification from other facilities - We will reach out to [place] KVNG CAMPA D.O. Mar 05, 2021 13:09 ESTEFANY AHZEL MD Mar 05, 2021 16:16
[2021-03-05 16:00] VITALS: BP 110/66
[2021-03-05] MEDS ORDERED: LORazepam 0.5 MG TAB PO PRN (16:15)
[2021-03-05 20:00] VITALS: BP 97/66
--- NOTE | 2021-03-05 21:39 | IPN ---
NEPHROLOGY PROGRESS NOTE DATE: 03/05/2021 SUBJECTIVE: Mr. Glez is seen and examined this morning at the bedside. He was drowsy but easily arousable. He offers no complaints. He is on a clear liquid diet. He was dialyzed yesterday with only 500 mL of fluid removed. He remains in oligoanuric renal failure. He wishes to continue with attempts at hemodialysis. OBJECTIVE: PHYSICAL EXAMINATION: VITAL SIGNS: Temperature 98.3, pulse 80, respiratory rate 18, blood pressure 126/71, saturating 94-98% on room air. INTAKE AND OUTPUT: Urine output yesterday was 300 mL. Dialysis removed 500 mL. Weight in the bed scale today was 74.4 kg. GENERAL APPEARANCE: The patient is seen lying in the bed, appears older than stated age, appears frail, ill and chronically weak appearing. Decreased muscle mass and muscle wasting. HEENT: The extraocular muscles are intact. There is mild scleral icterus. The tongue is moist. NECK: Supple. CHEST: There is a tunneled hemodialysis catheter in the right chest wall. There is old blood that has dried around it. HEART: Sounds are regular, S1, S2. There is almost no edema in his lower extremities today. LUNGS: Clear to auscultation. No crackles or rales. ABDOMEN: Soft and he does not grimace to palpation. There is some ascites accumulated but it is not a severe amount. SKIN: Diffuse ecchymosis and bruising. GENITOURINARY: Rivera catheter with minimal urine. EXTREMITIES: Muscle wasting but no significant edema, perhaps 1+ in the feet and trace up to the mid apple. NEUROLOGICAL: He is lethargic and a little slow to respond but he is oriented x3 and answers simple questions with a "yes" or a "no". LABORATORY STUDIES: White count 9.1, hemoglobin 9.1, platelet count 76. Sodium 139, potassium 3.6, bicarbonate 24, BUN 18, creatinine 2.8, glucose 116. CURRENT INPATIENT MEDICATIONS: The patient's medications were reviewed by myself. He received a magnesium sulfate run. He is off of the Octreotide infusion. I note he was started on Ativan p.r.n. for anxiety. He continues on Midodrine, Ceftriaxone one gram daily, Protonix, Rifaximin, and Carafate. PROBLEMS: 1. Acute oliguric renal failure in this patient with decompensated cirrhosis and multiple sequelae of end-stage liver disease including coagulopathy, ascites, thrombocytopenia and who has unfortunately recently experienced recurrent infectious issues. The patient developed dialysis needs on this admission. However his chronic hypotension and his other comorbid conditions make dialyzing him a challenge. He had a 3-hour gentle dialysis treatment yesterday; 500 mL of fluid were removed. He wishes to continue with full measures at this time and we will continue to dialyze him, although I feel he is unlikely to tolerate chronic regular outpatient hemodialysis, and I have expressed the same to him. Next inpatient dialysis treatment will tentatively be March 06. He is receiving Heparin pre-dialysis in view of his thrombocytopenia. 2. Chronic hypotension in the setting of cirrhosis and continues on maximum dose of Midodrine and his hypotension complicates his ability to receive hemodialysis. 3. Decompensated liver cirrhosis with various sequelae of end-stage liver disease including thrombocytopenia, recurrent large volume ascites, history of GI bleed, etc. The patient's MELD score today is 32, giving a 90-day mortality risk of 65%. The Primary Team is in conversation with various liver centers to see if the patient would be candidate for a transplant evaluation. He otherwise continues on Carafate, Rifaximin, Midodrine and Octreotide, managed by the Primary Service. 4. Recent GI bleed - The patient is high risk for spontaneous bleed given his coagulopathy and thrombocytopenia. He is on Carafate and Protonix. 5. Diastolic congestive heart failure and cirrhosis with ascites volume status is actually looking pretty reasonable today. He has minimal peripheral edema. He is saturating well on room air, and he had a large volume paracentesis 3 days ago. When he was dialyzed yesterday, we only removed 500 mL of fluid.
[2021-03-06] VITALS: BP 108/64
[2021-03-06 04:00] VITALS: BP 125/77
[2021-03-06] MEDS: SODIUM CHLORIDE 0.9% INJ 10 ML SYR IV SCH ×2 (06:00→17:02)
[2021-03-06 07:15] LABS: BASO % 0.3 % (0.0-1.0); EOS # 0.1 10^3/uL (0.0-0.5); EOS % 1.7 % (0.0-3.0); HEMATOCRIT 25.1 % (42.0-52.0); HEMOGLOBIN 8.9 g/dl (13.5-17.5); MEAN CORPUSCULAR HEMOGLOBIN 31.3 pg (27.0-33.0); MEAN CORPUSCULAR HGB CONC 35.5 g/dl (32.0-36.5); MEAN CORPUSCULAR VOLUME 88.4 fl (80.0-96.0); MONO # 0.5 10^3/uL (0.0-0.8); MONO % 6.7 % (2.0-8.0); NEUTROPHILS % 77.8 % (36.0-66.0); RED BLOOD COUNT 2.84 10^6/uL (4.30-6.10); WHITE BLOOD COUNT 7.6 10^3/uL (4.0-10.0)
[2021-03-06 07:24] LABS: INR 1.89; PROTHROMBIN TIME 22.1 SECONDS (12.7-14.5)
[2021-03-06 07:26] LABS: PLATELET COUNT, AUTOMATED 85 10^3/uL (150-450)
[2021-03-06 07:43] LABS: ALBUMIN 2.4 GM/DL (3.2-5.2); BILIRUBIN,TOTAL 2.2 MG/DL (0.2-1.0); CALCIUM LEVEL 7.7 MG/DL (8.8-10.2); CREATININE FOR GFR 3.26 MG/DL (0.70-1.30); GLOMERULAR FILTRATION RATE 20.5 (>49); POTASSIUM SERUM 3.4 MEQ/L (3.5-5.1); TOTAL PROTEIN 4.6 GM/DL (6.4-8.2)
[2021-03-06 08:00] VITALS: BP 114/62
[2021-03-06] MEDS: MIDODRINE 5 MG TAB PO SCH ×3 (08:50→16:59)
[2021-03-06] MEDS: rifAXIMin 550 MG TAB (XIFAXAN) PO SCH ×2 (08:51→22:33)
[2021-03-06] MEDS: SUCRALFATE 1 GM TAB PO SCH ×4 (08:51→22:34)
[2021-03-06] MEDS: PANTOPRAZOLE 40MG VIAL (C9113 PER 1) IV SCH ×2 (08:51→22:32)
[2021-03-06] MEDS ORDERED: LORazepam 0.5 MG TAB PO PRN (09:20)
[2021-03-06] MEDS ORDERED: POTASSIUM CHLORIDE 10MEQ SR TABLET PO ONE (09:20)
--- NOTE | 2021-03-06 09:47 | IPNPDOC ---
Text Note Date of Service The patient was seen on 03/06/21. NOTE SUBJECTIVE: Patient is seen and examined this morning at bedside. He appears quite drowsy this morning. He is able to answer questions and endorses feeling tired but otherwise well. Denies pain. No notable overnight events. OBJECTIVE: VITAL SIGNS: See below GENERAL: Alert, comfortable, in no acute distress. Patient appears thin and tired with some muscle wasting. HEENT: Normocephalic, atraumatic, moist mucous membranes NECK: Supple, trachea midline, no lymphadenopathy CARDIOVASCULAR: Regular rate and rhythm, normal S1 and S2. No murmurs, rubs, or gallops RESPIRATORY: Clear to auscultation bilaterally with equal air entry bilaterally. No wheezing, rhonchi, or rales. ABDOMEN: Soft, nondistended. Nontender, bowel sounds present. EXTREMITIES: 1+ pitting edema in bilateral lower extremities extending up to the knees NEUROLOGIC: No focal deficits appreciated PSYCHIATRIC: Mood and affect appropriate ASSESSMENT/PLAN: 66-year-old male with history of cirrhosis secondary to unknown cause/possibly FLOOD, and complications of hepatic encephalopathy, recurrent ascites requiring weekly paracentesis, episodes of GI bleeding with history of gastric AVMs and GAVE, thrombocytopenia, with additional past medical history of pancreatic adenocarcinoma status post Whipple procedure and chemotherapy in 2017, recurrent bacteremia, diabetes mellitus, chronic anemia, and diastolic CHF who presented to the hospital with oliguric renal failure now requiring hemodialysis #Oliguric renal failure Patient has had a dialysis catheter inserted and initially had difficulty franco erating dialysis due to hypotension. Nephrology is consulted, appreciate recommendations Patient has been tolerating dialysis and will likely go for his next session again today based on nephrology recommendations. #Decompensated liver cirrhosis, unknown cause/possibly FLOOD With current ascites requiring weekly paracentesis and oliguric renal failure requiring regular hemodialysis With hepatorenal syndrome, with a history of hepatic encephalopathy, episodes of GI bleeding with history of gastric AVMs and GAVE. Last paracentesis on 03/02/2021 with 6 L removed. Per patient's outpatient hvac r instructor, patient should not have more than 6 L removed during paracentesis and should receive 50 g of albumin after paracentesis. MELD-Na score today is 31. Current plan is for transfer to [facility] for evaluation for liver transplantation when a bed is available. Continues on Carafate, rifaximin, midodrine. #Hematemesis, resolved Status post octreotide drip. Continue on IV Protonix twice daily and oral Carafate with meals. Zofran as needed for nausea. Due to no irrigating pump operator on-call, Dr. Land/general surgery was consulted for evaluation. Patient is tolerating regular diet without recurrent hematemesis. #Hypotension, stable Likely multifactorial with the patient's cirrhosis playing a large role Continue midodrine 15 mg 3 times a day #Possible SBP secondary to Staphylococcus hominis, resolved Culture from paracentesis fluid grew few staph hominis. May be contamination, but patient is high risk due to history of recurrent bacteremia and sepsis. Completed 5-day course of IV antibiotics with vancomycin, will discontinue today. 2 blood cultures drawn on 02/20/2021 are negative after 5 days Repeat blood culture drawn on 02/27/2021 is negative after 5 days. Continue SBP prophylaxis with 1 g IV ceftriaxone daily while inpatient #ESBL Klebsiella on sputum culture, resolved Status post course of IV Zosyn for 9 days. #Recurrent bacteremia on prior admissions Previously treated for E. coli bacteremia twice and most recently for Enterococcus faecalis and ESBL Klebsiella Blood cultures drawn on this admission have been negative. #Thrombocytopenia, improving Secondary to cirrhosis vs other cause. HIT Ab negative. Avoid anticoagulants Status post 1 unit platelets on 03/03/2021 due to hematemesis and platelet count less than 30,000. Transfuse platelets for platelet count less than 10,000 or less than 30,000 if bleeding. #Chronic anemia Patient has history of GI bleeding and anemia of chronic disease Episode of hematemesis on 03/03/2021 which appears to have resolved. Now stable status post 2 units PRBCs. Continue to trend H/H. Transfuse for hemoglobin less than 7 #History of pancreatic adenocarcinoma, currently in remission Status post chemotherapy and Whipple procedure in 2017, which was performed at [facility]. Follows with [facility] #Diabetes mellitus Currently not on medication Developed after Whipple procedure, may be due to pancreatic insufficiency Consistent carb diet #CHF with preserved ejection fraction Avoid diuretics due to hypotension Fluid management with HD #Deconditioning and poor nutritional status PT/OT ordered Continue with protein supplementation at meals DVT prophylaxis: Teds and sequentials. Avoid medical prophylaxis due to thrombocytopenia CODE STATUS: Full code. We have had multiple conversations about the patient's overall prognosis with or without liver transplantation in the consideration of his CODE STATUS. We will continue became with the patient and his about his CODE STATUS moving forward. Disposition: Pending clinical improvement, possible transfer to [facility] for evaluation for liver transplantation pending VS,Georgibone, I+O VS, Georgibone, I+O Laboratory Tests 03/06/21 06:42 Vital Signs Date Time Temp Pulse Resp B/P (MAP) Pulse Ox O2 Delivery O2 Flow Rate FiO2 03/06/21 08:00 98.2 71 16 114/62 (79) 98 Room Air 03/02/21 21:20 96 I&O- Last 24 Hours up to 6 AM 03/06/21 06:00 Intake Total 730 ml Output Total 200 ml Balance 530 ml GME ATTESTATION GME ATTESTATION My faculty preceptor for this patient encounter was physically present during the encounter and was fully available. All aspects of the patient interview, examination, medical decision making process, and medical care plan development were reviewed and approved by the faculty preceptor. The faculty preceptor is aware and concurs with the plan as stated in the body of this note and will attest to such by his/her cosignature. ATTENDING NOTE I, Estefany Hazel, have independently examined this patient and performed my own physical exam, as well as reviewed the documentation and edited where necessary with the resident. For medical students we have performed the physical exam together and discussed medical decision making and I have verified the history. I have discussed in detail with the resident / student the findings and plan of treatment as documented by the resident / student and edited their note. I agree with their findings and treatment plan and have edited their documentation. I will continue to follow the patient during this hospital stay. KVNG CAMPA D.O. Mar 06, 2021 09:47 ESTEFANY HAZEL MD Mar 06, 2021 12:51
[2021-03-06 12:00] VITALS: BP 112/65
[2021-03-06] MEDS: cefTRIAXone SOD 1 GM in D5W MINI-BAG PLUS 50 ML IV SCH (12:50)
[2021-03-06 16:00] VITALS: BP 115/72
[2021-03-06 20:00] VITALS: BP 113/66
[2021-03-07] VITALS (8 sets, daily range): BP systolic 76–127; BP diastolic 48–73
[2021-03-07] MEDS: ONDANSETRON 4MG/2ML VIAL IV PRN ×2 (02:38→13:32)
[2021-03-07] MEDS: SODIUM CHLORIDE 0.9% INJ 10 ML SYR IV SCH ×2 (06:21→18:30)
[2021-03-07 06:28] LABS: BASO % 0.2 % (0.0-1.0); EOS # 0.1 10^3/uL (0.0-0.5); EOS % 1.3 % (0.0-3.0); HEMATOCRIT 27.2 % (42.0-52.0); HEMOGLOBIN 9.3 g/dl (13.5-17.5); LYMPH # 1.1 10^3/uL (1.5-5.0); LYMPH % 10.9 % (24.0-44.0); MEAN CORPUSCULAR HEMOGLOBIN 30.5 pg (27.0-33.0); MEAN CORPUSCULAR HGB CONC 34.2 g/dl (32.0-36.5); MEAN CORPUSCULAR VOLUME 89.2 fl (80.0-96.0); MONO # 0.9 10^3/uL (0.0-0.8); MONO % 8.8 % (2.0-8.0); NEUTROPHILS # 7.6 10^3/uL (1.5-8.5); NEUTROPHILS % 78.5 % (36.0-66.0); RED BLOOD COUNT 3.05 10^6/uL (4.30-6.10); WHITE BLOOD COUNT 9.7 10^3/uL (4.0-10.0)
[2021-03-07 06:29] LABS: PLATELET COUNT, AUTOMATED 82 10^3/uL (150-450)
[2021-03-07 06:38] LABS: INR 1.9; PROTHROMBIN TIME 22.2 SECONDS (12.7-14.5)
[2021-03-07 06:52] LABS: ALBUMIN 2.4 GM/DL (3.2-5.2); BILIRUBIN,TOTAL 2.4 MG/DL (0.2-1.0); CALCIUM LEVEL 7.7 MG/DL (8.8-10.2); CREATININE FOR GFR 3.59 MG/DL (0.70-1.30); GLOMERULAR FILTRATION RATE 18.3 (>49); POTASSIUM SERUM 3.5 MEQ/L (3.5-5.1); TOTAL PROTEIN 4.8 GM/DL (6.4-8.2)
[2021-03-07] MEDS: MIDODRINE 5 MG TAB PO SCH ×3 (08:00→18:29)
[2021-03-07] MEDS: SUCRALFATE 1 GM TAB PO SCH ×4 (10:19→21:00)
[2021-03-07] MEDS: PANTOPRAZOLE 40MG VIAL (C9113 PER 1) IV SCH (10:19)
[2021-03-07] MEDS: rifAXIMin 550 MG TAB (XIFAXAN) PO SCH ×2 (10:19→21:00)
[2021-03-07] MEDS: cefTRIAXone SOD 1 GM in D5W MINI-BAG PLUS 50 ML IV SCH (12:38)
--- NOTE | 2021-03-07 14:39 | IPNPDOC ---
Text Note Date of Service The patient was seen on 03/07/21. NOTE Subjective: Patient is a 66-year-old male with a PMHx of Cirrhosis (2/2 FLOOD; Hx of Hepatic encephalopathy, Recurrent ascites), Pancreatic Carcinoma (s/p Whipple 2016), CKD3, Chronic hyponatremia, GERD who presented to the ER on 02/20 with decreased urine output. Patient has had a long hospital stay from 02/07 to 02/17 for management of Severe Sepsis 2/2 E. faecium & ESBL klebsiella bacteremia, Vomiting, Acute blood loss anemia, Hypotension, KAILEE on CKD3 and ascites. It was felt that the primary source of bacteremia may be GI in nature but pleural fluid analysis was unrevealing; nevertheless he was discharged with instructions to take linezolid for 6 more days pending an appointment with the liver transplant clinic in [place]. With regards to the blood loss anemia EGD revealed a small AVM that was cauterized. It was suspected that the KAILEE was due to sepsis therefore his diuretics were held he was given albumin and midodrine. The patient also had paracentesis twice on 02/09 and 02/15. Patient had presented back to the ER on 02/18 with reported decreased urine output and had a Rivera catheter placed and was discharged home from the ER. Patient was seen and examined at the bedside. Patient appears to be weak and drowsy this morning. Denies any chest pain, shortness breath, palpitations, nausea, vomiting, abdominal pain or diarrhea. Patient did report a mild cough this morning. Objective: Vitals (See below) General: Patient is sitting up in bed, appears to be comfortable without any acute distress, drowsy but awakes oriented 3 HEENT: NC, AT CVS: +S1S2 Lungs: Fair air entry b/l, no appreciated wheezing, rhonchi or rales Abdomen: Soft, nontender, mildly distended Extremities: Trace LE edema Imaging: CT abdomen / pelvis 02/20: 1. Changes related to cirrhosis including severe ascites. Findings are unchanged compared to prior examination. 2. No further acute abdominopelvic pathology appreciated. Abdomen US 02/21: 1. No portal vein thrombosis. 2. Cirrhotic liver. 3. Large volume of ascites. 4. Pneumobilia, which is better visualized in the CT abdomen and pelvis on 02/20/2021. CXR 02/21: No acute cardiopulmonary process appreciated. Paracentesis 02/22: Ultrasound-guided paracentesis with removal of 8250 mL of yellow ascites. PICC 02/23: PICC line insertion into the left lateral brachial vein. Paracentesis 03/02: Technically successful ultrasound-guided paracentesis yielding 6000 mL of saul fluid. Assessment and plan: Oliguric renal failure - Dialysis catheter placed on 02/[address] Downing - Has been tolerating dialysis - Nephrology on consultation; appreciate their input Decompensated liver cirrhosis - likely 2/2 FLOOD - Patient still requiring weekly paracentesis; and now regular hemodialysis given hepatorenal syndrome / oliguric renal failure - Hx of hepatic encephalopathy, episodes of GI bleeding with history of gastric AVMs and GAVE - As received 2 paracentesis procedures this hospitalization - Per patient's outpatient music journalist, patient should not have more than 6 L removed during paracentesis and should receive 50 g of albumin after paracentesis. - Plan is for transfer to [facility] for evaluation for liver transplantation when a bed is available. - c/w Carafate, rifaximin, midodrine s/p Hematemesis - Hg appears stable - s/p Octreotide drip - c/w Protonix / Carafate - c/w Zofran PRN - Surgery was called on consultation; appreciate their input; no GI available - c/w Regular diet currently Hypotension - Blood pressure appears to be well controlled currently - c/w Midodrine Possible SBP 2/2 Staphylococcus hominis - Ascitic fluid culture 02/22: Staphylococcus hominis - Blood cultures 02/20: No growth at 5 days - Blood cultures 02/27: No growth at 5 days - s/p Vanocmycin (5 days) - c/w Ceftriaxone for prophylaxis at this point ESBL Klebsiella on sputum culture - s/p Zosyn (Completed 9 days) Recurrent bacteremia on prior admissions - Previously treated for E. coli bacteremia twice and most recently for Enterococcus faecalis and ESBL Klebsiella - Cultures noted above; negative Thrombocytopenia - possibly 2/2 cirrhosis, possibly 2/2 infection - Improving - HIT Ab negative - Will avoid antiplatelets / anticoagulation - s/p 5 unit platelets - Will transfuse platelets for platelet count <10k or <30k if bleeding. Chronic anemia - Hx of GI bleeding and anemia of chronic disease - Episode of hematemesis on 03/03/2021 which appears to have resolved - s/p 3 units PRBC - Will transfuse for Hg < 7 History of pancreatic adenocarcinoma, - Currently in remiession - s/p Chemotherapy and Whipple procedure in 2017, which was performed at [facility]. - Follows with [facility] in [facility] NIDDM2 - Patient is not on any medications as an outpatient - Developed after Whipple procedure, may be due to pancreatic insufficiency Diastolic CHF with preserved ejection fraction - Fluid management via hemodialysis Deconditioning and poor nutritional status - c/w PT and OT - c/w protein supplementation at meals GI prophylaxis - See above - c/w Protonix / Carafate DVT prophylaxis - c/w TEDs/Sequentials Code status: - Full code - Multiple discussed with patient about goals of care; still wants to be full code Disposition: - Pending clinical improvement - Possible transfer to [facility] for evaluation for liver transplantation pending VS,Fishbone, I+O VS, Fishbone, I+O Laboratory Tests 03/07/21 06:05 Vital Signs Date Time Temp Pulse Resp B/P (MAP) Pulse Ox O2 Delivery O2 Flow Rate FiO2 03/07/21 12:00 97.8 90 18 110/70 (83) 96 Room Air 03/02/21 21:20 96 I&O- Last 24 Hours up to 6 AM 03/07/21 06:00 Intake Total 1560 ml Output Total 1677 ml Balance -117 ml DHAVAL VAUGHAN MD Mar 07, 2021 14:39
--- NOTE | 2021-03-07 15:58 | REP ---
INDICATION: Tachycardia. COMPARISON: Portable chest, 02/21/2021. TECHNIQUE: Upright AP portable chest image was obtained. FINDINGS: There is chronic elevation of the right hemidiaphragm. There is linear atelectasis in the mid and lower lung zones bilaterally. There are no pleural effusions. The heart size is normal. There is calcific vascular disease of the thoracic aorta. There is a multi port catheter via the a right internal jugular vein with the tip in the right atrium. IMPRESSION: 1. Atelectasis in the mid and lower lung zones bilaterally. 2. Multi port IJ deep line. <Electronically signed by Roc Garcia > 03/07/21 [id number]
[2021-03-07 16:31] LABS: BASO % 0.2 % (0.0-1.0); EOS # 0.1 10^3/uL (0.0-0.5); EOS % 0.8 % (0.0-3.0); HEMOGLOBIN 10.9 g/dl (13.5-17.5); LYMPH # 0.7 10^3/uL (1.5-5.0); LYMPH % 6.8 % (24.0-44.0); MEAN CORPUSCULAR HEMOGLOBIN 30.5 pg (27.0-33.0); MEAN CORPUSCULAR HGB CONC 34.1 g/dl (32.0-36.5); MEAN CORPUSCULAR VOLUME 89.6 fl (80.0-96.0); MONO # 0.1 10^3/uL (0.0-0.8); MONO % 1.2 % (2.0-8.0); NEUTROPHILS # 8.7 10^3/uL (1.5-8.5); NEUTROPHILS % 90.8 % (36.0-66.0); PLATELET COUNT, AUTOMATED 104 10^3/uL (150-450); RED BLOOD COUNT 3.57 10^6/uL (4.30-6.10); WHITE BLOOD COUNT 9.5 10^3/uL (4.0-10.0)
[2021-03-07 16:40] LABS: INR 1.74; PROTHROMBIN TIME 20.8 SECONDS (12.7-14.5)
[2021-03-07 17:00] LABS: ALBUMIN 2.8 GM/DL (3.2-5.2); ALT/SGPT 29 U/L (12-78); BILIRUBIN,TOTAL 2.6 MG/DL (0.2-1.0); BLOOD UREA NITROGEN 24 MG/DL (7-18); CALCIUM LEVEL 7.9 MG/DL (8.8-10.2); CARBON DIOXIDE LEVEL 17 MEQ/L (21-32); CHLORIDE LEVEL 107 MEQ/L (98-107); CK-MB VALUE MASS 1.7 NG/ML (<3.6); CPK CREATINE PHOSPHOKINASE 13 U/L (39-308); GLOMERULAR FILTRATION RATE 16.7 (>49); GLUCOSE, FASTING 159 MG/DL (70-100); MAGNESIUM LEVEL 1.9 MG/DL (1.8-2.4); MB/CK RELATIVE INDEX 13.08 (< OR =4); POTASSIUM SERUM 3.5 MEQ/L (3.5-5.1); SODIUM LEVEL 138 MEQ/L (136-145); TOTAL PROTEIN 5.3 GM/DL (6.4-8.2); TROPONIN I < 0.02 NG/ML (< 0.10)
[2021-03-07 17:04] LABS: LIPASE 50 U/L (73-393); NT-PRO BNP 3252 PG/ML (<125)
[2021-03-07] MEDS ORDERED: LACTULOSE 20 GM/30 ML SYRUP UD PR ONE (17:15)
--- NOTE | 2021-03-07 17:33 | REP ---
INDICATION: Abdominal distension / N+V. COMPARISON: CT abdomen pelvis without contrast, 02/20/2021. TECHNIQUE: Imaging protocol: Computed tomography of the abdomen and pelvis without IV contrast. Contiguous 3 mm thick axial projection images were obtained through the abdomen and pelvis. 2D sagittal and coronal reconstructions were performed. Radiation optimization: All CT scans at this facility use at least one of these dose optimization techniques: automated exposure control; mA and/or kV adjustment per patient size (includes targeted exams where dose is matched to clinical indication); or iterative reconstruction. FINDINGS: Heart and lung bases: There has been interval development of partially loculated pleural effusions bilaterally. There is compressive atelectasis of the adjacent portion of both lungs. The heart size is normal. There is no pericardial effusion. There is calcific vascular disease of the thoracic aorta and coronary arteries. The tip of a multi port catheter is noted in the right atrium. Liver: The liver is cirrhotic. Gallbladder: Surgically absent. There is air in the biliary tree consistent with sphincterotomy. Spleen: The spleen is enlarged measuring 13.9 cm in pole to pole length. Pancreas: Normal unenhanced appearance. Adrenal glands: There is a 2.1 cm in diameter left adrenal adenoma. The right adrenal gland has a normal unenhanced appearance. Kidneys/bladder: The kidneys have a normal unenhanced appearance. There is a Rivera catheter in the urinary bladder. Pelvic structures: Pelvic structures are obscured by ascites. There is no pelvic or inguinal lymphadenopathy apparent. GI tract: There is an air-fluid level in the esophagus consistent with gastroesophageal reflux/esophageal dysmotility. There is mild distension of the entire gastrointestinal tract with air-fluid levels consistent with ileus. The appendix is not demonstrated. Abdominal wall and mesentery: There is increased attenuation of the subcutaneous fat consistent with anasarca. There is a large amount of ascites. There is a 2.7 cm in diameter left inguinal hernia containing fat and fluid. There is a 2.8 cm in diameter right inguinal hernia containing fat and fluid. There is no mesenteric or retroperitoneal lymphadenopathy. Abdominal aorta and vascular structures: There is calcific vascular disease of the abdominal aorta. Bony structures: There is multilevel degenerative disc disease of the lower thoracic and lumbar spine. There is bilateral spondylolysis with grade 1 anterolisthesis of L5 on S1. The SI joints and hips are unremarkable. IMPRESSION: 1. Findings of cirrhosis with splenomegaly and this large amount of ascites and anasarca. 2. Interval development of small pleural effusions with compressive atelectasis of the adjacent lung. 3. There is a left adrenal adenoma. 4. Air-fluid level in the esophagus consistent with gastroesophageal reflux/esophageal dysmotility. 5. There is diffuse ectasia of the gastrointestinal tract with air-fluid levels most consistent with ileus. 6. Other findings as noted. <Electronically signed by Roc Garcia > 03/07/21 [id number]
--- NOTE | 2021-03-07 18:23 | REP ---
INDICATION: ngt insertion.,placement check. COMPARISON: Portable chest, 03/07/2021, 3:36 p.m. TECHNIQUE: AP portable chest image was obtained. FINDINGS: There is a nasogastric tube now present with the side port in the area of the distal esophagus. The left PICC line and right IJ deep line are unchanged in position. There is again noted chronic elevation of the right hemidiaphragm. There is linear atelectasis in the mid and lower lung zones bilaterally. There are no pleural effusions. The heart size is normal. There is calcific vascular disease of the thoracic aorta. IMPRESSION: 1. Nasogastric tube now present with the side port in the distal esophagus. 2. Other findings as noted, not significantly changed. <Electronically signed by Roc Garcia > 03/07/21 [id number]
[2021-03-07] MEDS: LACTULOSE 20 GM/30 ML SYRUP UD PO SCH ×2 (18:29→22:00)
[2021-03-07] MEDS: PIPERACILLIN/TAZOBACTAM SOD 3.375 GM in D5W MINI-BAG PLUS 50 ML IV SCH (18:29)
[2021-03-07 18:42] LABS: BILIRUBIN, URINE MANUAL NEGATIVE (NEGATIVE); GLUCOSE, URINE (UA) MANUAL NEGATIVE (NEGATIVE); KETONE, URINE MANUAL NEGATIVE (NEGATIVE); UROBILINOGEN, URINE MANUAL NORMAL (NORMAL)
[2021-03-07 18:43] LABS: BACTERIA, URINE SMALL AMOUNT; HYALINE CAST, URINE NONE SEEN /lpf (0-1); SQUAMOUS EPITHELIAL CELL URINE NONE SEEN /hpf (SMALL AMT); YEAST, URINE SMALL AMOUNT
[2021-03-07 19:17] LABS: AMYLASE 14 U/L (25-115)
[2021-03-07] MEDS ORDERED: ACETAMINOPHEN *IV* 1,000 MG in IV 1 EA IV ONE (20:10)
--- NOTE | 2021-03-07 20:19 | IPN ---
NEPHROLOGY PROGRESS NOTE DATE: 03/07/2021 SUBJECTIVE: Mr. Glez is seen this morning at his bedside. He is drinking Ensure and his is present at his bedside, helping with his drinks. His abdominal distention seems to be increased and he has a known history of significant ascites requiring paracentesis. OBJECTIVE: PHYSICAL EXAMINATION: VITAL SIGNS: Temperature is 97.8 degrees Fahrenheit, heart rate 92 per minute and respiratory rate 16 per minute. Blood pressure is 112/70 mm of mercury and oxygen saturation is 93% on room air. HEENT: His head is atraumatic. NECK: Supple and JVD not abnormally elevated. HEART: Sounds are regular. LUNGS: Diminished breath sounds at the bases. ABDOMEN: Markedly distended with ascites. Bowel sounds are present. EXTREMITIES: Without any cyanosis or clubbing. He does have some edema on this thighs but no edema on the lower legs. NEUROLOGICAL: He is essentially unchanged and grossly intact. LABORATORY STUDIES: Today's labs show a WBC count of 9.5, hemoglobin 10.9 and hematocrit 32.0. Platelets are low at 104. Sodium is 137, potassium 3.5, CO2 21, BUN 23 and creatinine 3.59. Glucose 143 and calcium 7.7. Total protein is 4.8 and albumin level 2.4. PROBLEMS: 1. Hepatorenal syndrome - essentially no significant change. His urine output is still low, but he seems to have significant ascites. I would recommend to consider paracentesis early in the week. At this point we are going to hold off on dialysis today and recheck tomorrow morning. There is no emergent need for dialysis at this time. I have discussed with the patient and his and explained that he is likely to still require dialysis but we will wait for today and recheck on him tomorrow. 2. Hypokalemia his potassium level is slightly improved and still borderline. He is not receiving any diuretics at this point. 3. Hypertension - blood pressure remains stable with Midodrine 15 mg three times daily. He is also receiving antibiotics including Zosyn. Ceftriaxone has been stopped today. 4. Cirrhosis of liver with recurrent ascites - The patient has increased abdominal distention with most likely increased ascites. He is waiting for a bed at [facility] for evaluation for a liver transplant.
--- NOTE | 2021-03-07 21:27 | ECGEPIP ---
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
[2021-03-07 22:43] LABS: CK-MB VALUE MASS 1.3 NG/ML (<3.6); MB/CK RELATIVE INDEX 5.65 (< OR =4); TROPONIN I 0.02 NG/ML (< 0.10)
[2021-03-08] VITALS (81 sets, daily range): BP systolic 74–145; BP diastolic 38–95
[2021-03-08] MEDS: PANTOPRAZOLE 40MG VIAL (C9113 PER 1) IV SCH ×3 (00:06→21:33)
[2021-03-08] MEDS: PIPERACILLIN/TAZOBACTAM SOD 3.375 GM in D5W MINI-BAG PLUS 50 ML IV SCH ×3 (00:06→10:11)
[2021-03-08] MEDS ORDERED: NS 250 ML IV ONE (00:10)
[2021-03-08] MEDS ORDERED: HYDROCORTISONE 100 MG/2 ML VIAL (J1720 PER 1) IV ONE (00:15)
[2021-03-08] MEDS ORDERED: NOREPINEPHRINE BITARTRATE 8 MG in D5W 500 ML IV SCH (01:40)
--- NOTE | 2021-03-08 03:04 | IPNPDOC ---
Text Note Date of Service The patient was seen on 03/07/2021 NOTE Patient seen at bedside due to hypotension and elevated lactic 6.2. Manual blood pressure 80/40. In setting of decompensated end-stage liver disease; albumin 50 g has been ordered as well as normal saline 250 mL bolus. Patient has already been given midodrine 15 mg 3 times daily. Patient is cachectic jaundiced and very ill-appearing. He has an NG tube in place. He opens eyes and turns had to vocal stimuli but patient too weak to squeeze hand or follow commands or interact. He is diminished but tolerating room air 95%. He has had decreased urine output and nephrology is following. Abdomen is soft but notable ascites and hypoactive bowel sounds. at bedside. She was made aware regarding patient is very ill and guarded prognosis. Discussed present plan of care and if no improvement patient will have to be escalated to vasopressors in order to reach goal map of 60 mmHg. She was informed there is multiorgan failure present given his hepatorenal presentation. Decision to have son come to bedside. Patient remains full code pending respon se for further discussion on CODE STATUS with clinical course. Plan for manual BP check after completion to determine upgrading status to ICU and addition of vasopressors. Trial of Solu-Cortef. Patient already on Zosyn and had completed recent Vanc dosing. Update: Patient without improvement post albumin, bolus and Solu-Cortef. Manual blood pressure 78/44. Vasopressor ordered by collaborating physician. Patient is responding well with a MAP of 71, BP recently 102/55. We will continue treatment plan and adjust pending patient response. VS,Fishbone, I+O VS, Fishbone, I+O Laboratory Tests 03/07/21 06:05 03/07/21 16:19 Vital Signs Date Time Temp Pulse Resp B/P (MAP) Pulse Ox O2 Delivery O2 Flow Rate FiO2 03/08/21 02:45 99.0 87 12 102/55 (71) 94 Room Air 03/02/21 21:20 96 I&O- Last 24 Hours up to 6 AM 03/08/21 06:00 Intake Total 600.0 ml Output Total 550 ml Balance 50.0 ml MAXINE MONTES NP Mar 08, 2021 03:04
[2021-03-08 03:31] LABS: VENOUS BASE EXCESS -9.8 (-2.0-2.0); VENOUS HCO3 14.5 MEQ/L (23.0-27.0); VENOUS O2 SATURATION 95.6 % (60.0-80.0); VENOUS PARTIAL PRESSURE CO2 26.8 mmHg (38.0-50.0); VENOUS PARTIAL PRESSURE O2 81.9 mmHg (30.0-50.0); VENOUS PH 7.351 UNITS (7.330-7.430); VENOUS STANDARD HCO3 16.5 MEQ/L; VENOUS TOTAL CO2 15.3 MEQ/L (24.0-28.0)
[2021-03-08 03:40] LABS: BASO % 0.1 % (0.0-1.0); HEMATOCRIT 25.6 % (42.0-52.0); LYMPH # 0.5 10^3/uL (1.5-5.0); LYMPH % 2.6 % (24.0-44.0); MEAN CORPUSCULAR HEMOGLOBIN 30.4 pg (27.0-33.0); MEAN CORPUSCULAR VOLUME 89.5 fl (80.0-96.0); MONO # 1.1 10^3/uL (0.0-0.8); MONO % 5.7 % (2.0-8.0); NEUTROPHILS # 17.6 10^3/uL (1.5-8.5); NEUTROPHILS % 91.1 % (36.0-66.0); RED BLOOD COUNT 2.86 10^6/uL (4.30-6.10); WHITE BLOOD COUNT 19.4 10^3/uL (4.0-10.0)
[2021-03-08 03:42] LABS: PLATELET COUNT, AUTOMATED 63 10^3/uL (150-450)
[2021-03-08 03:43] LABS: HEMOGLOBIN 8.7 g/dl (13.5-17.5)
[2021-03-08 03:50] LABS: INR 2.35; PROTHROMBIN TIME 26.1 SECONDS (12.7-14.5)
[2021-03-08 04:09] LABS: BILIRUBIN,TOTAL 3.1 MG/DL (0.2-1.0); CREATININE FOR GFR 4.11 MG/DL (0.70-1.30); GLOMERULAR FILTRATION RATE 15.7 (>49); MAGNESIUM LEVEL 1.9 MG/DL (1.8-2.4); POTASSIUM SERUM 3.4 MEQ/L (3.5-5.1); TOTAL PROTEIN 4.9 GM/DL (6.4-8.2)
[2021-03-08 04:10] LABS: CK-MB VALUE MASS 1.2 NG/ML (<3.6); MB/CK RELATIVE INDEX 3.24 (< OR =4); TROPONIN I 0.03 NG/ML (< 0.10)
[2021-03-08] MEDS: LACTULOSE 20 GM/30 ML SYRUP UD PO SCH (05:06)
[2021-03-08] MEDS: SODIUM CHLORIDE 0.9% INJ 10 ML SYR IV SCH ×2 (05:12→18:00)
[2021-03-08] MEDS: SUCRALFATE SUSP 1GM/10ML UD NG SCH ×3 (06:00→17:57)
[2021-03-08 08:45] LABS: HEMATOCRIT 26.3 % (42.0-52.0); LYMPH # 0.9 10^3/uL (1.5-5.0); LYMPH % 4.4 % (24.0-44.0); MEAN CORPUSCULAR HEMOGLOBIN 30.4 pg (27.0-33.0); MEAN CORPUSCULAR HGB CONC 34.2 g/dl (32.0-36.5); MEAN CORPUSCULAR VOLUME 88.9 fl (80.0-96.0); MONO # 0.7 10^3/uL (0.0-0.8); MONO % 3.1 % (2.0-8.0); NEUTROPHILS # 19.3 10^3/uL (1.5-8.5); RED BLOOD COUNT 2.96 10^6/uL (4.30-6.10)
[2021-03-08 08:52] LABS: PLATELET COUNT, AUTOMATED 72 10^3/uL (150-450)
[2021-03-08 09:10] LABS: ALBUMIN 2.8 GM/DL (3.2-5.2); C REACTIVE PROTEIN QUANTITATIV 3.84 MG/DL (0.00-0.30); CALCIUM LEVEL 8.4 MG/DL (8.8-10.2); CREATININE FOR GFR 4.1 MG/DL (0.70-1.30); GLOMERULAR FILTRATION RATE 15.7 (>49); MAGNESIUM LEVEL 2.1 MG/DL (1.8-2.4); POTASSIUM SERUM 3.5 MEQ/L (3.5-5.1); TOTAL PROTEIN 5.1 GM/DL (6.4-8.2)
--- NOTE | 2021-03-08 09:10 | REP ---
INDICATION: confirm NG tube placement after advancement. COMPARISON: Multiple the latest 03/07/2021 at 6:08 p.m. TECHNIQUE: Portable FINDINGS: The technique utilized in obtaining the radiograph has magnified the cardiac silhouette and accentuated the interstitial markings. The cardiomediastinal silhouette is unchanged. The heart is not enlarged. The nasogastric tube has been advanced the tip is beyond the confines of the radiograph. There is no significant change in appearance of the central venous catheters. There are mild bibasilar curvilinear densities which are stable. No acute patchy parenchymal opacities or pleural effusions have developed. There is no change in the osseous structures. IMPRESSION: Nasogastric tube advancement as described above. Examination is otherwise essentially unchanged. <Electronically signed by Julio Paniagua > 03/08/21 [id number]
[2021-03-08] MEDS: rifAXIMin 550 MG TAB (XIFAXAN) NG SCH ×2 (10:11→21:33)
[2021-03-08] MEDS ORDERED: SODIUM CHLORIDE 0.9% INJ 10 ML SYR IV PRN (11:00)
[2021-03-08] MEDS: LACTULOSE 20 GM/30 ML SYRUP UD NG SCH ×2 (12:55→17:57)
[2021-03-08] MEDS ORDERED: FLUID PLACE HOLDER IV ONE (13:20)
[2021-03-08] MEDS ORDERED: VANCOMYCIN HCL IV ONE (13:20)
[2021-03-08] MEDS ORDERED: VANCOMYCIN HCL 750 MG, VIAL MATE ADAPTER 1 EACH in NS 250 ML IV SCH (14:00)
[2021-03-08] MEDS ORDERED: PIPERACILLIN/TAZOBACTAM SOD 4.5 GM in D5W MINI-BAG PLUS 50 ML IV SCH (16:00)
[2021-03-08] MEDS ORDERED: VANCOMYCIN HCL 750 MG, VIAL MATE ADAPTER 1 EACH in NS 250 ML IV ONE (16:00)
--- NOTE | 2021-03-08 16:55 | IPNPDOC ---
Text Note Date of Service The patient was seen on 03/08/21. NOTE SUBJECTIVE: Patient is seen and examined this morning at bedside. He was initially resting when I examined him but after waking up is able to answer questions appropriately. He denies any pain. He reports feeling tired. Overnight, the patient was noted to become hypotensive and developed a lactic acidosis of 6.2. He was initially treated with albumin infusions. He was then transferred to ICU for vasopressors and started on Levophed. He was also given a dose of Solu-Cortef. OBJECTIVE: VITAL SIGNS: See below GENERAL: Somewhat lethargic, in no acute distress. Patient appears thin and tired with some muscle wasting. HEENT: Normocephalic, atraumatic, moist mucous membranes NECK: Supple, trachea midline, no lymphadenopathy CARDIOVASCULAR: Regular rate and rhythm, normal S1 and S2. No murmurs, rubs, or gallops RESPIRATORY: Clear to auscultation bilaterally with equal air entry bilaterally. No wheezing, rhonchi, or rales. ABDOMEN: Soft, nondistended. Nontender, bowel sounds present. EXTREMITIES: 1+ pitting edema in bilateral lower extremities extending up to the hips NEUROLOGIC: Patient is alert and oriented to person, place. He is mildly lethargic but responds appropriately to questions. ASSESSMENT/PLAN: 66-year-old male with history of cirrhosis secondary to unknown cause/possibly FLOOD, and complications of hepatic encephalopathy, recurrent ascites requiring weekly paracentesis, episodes of GI bleeding with history of gastric AVMs and GAVE, thrombocytopenia, with additional past medical history of pancreatic adenocarcinoma status post Whipple procedure and chemotherapy in 2017, recurrent bacteremia, diabetes mellitus, chronic anemia, and diastolic CHF who presented to the hospital with oliguric renal failure now requiring hemodialysis #Oliguric renal failure Patient has had a dialysis catheter inserted and initially had difficulty tima ating dialysis due to hypotension. Nephrology is consulted, appreciate recommendations Dialysis catheter placed on 02/[address] Downing Due to the patient's hypotension this morning, he will be started on CRRT per nephrology recommendations. #Sepsis 2/2 unknown source Patient acutely worsened overnight with leukocytosis and lactic acidosis Patient also became hypotensive requiring Levophed Concern for bacteremia due to his recurrent episodes in the past 1 of 2 blood cultures has a positive Gram stain for gram-negative rods and gram-positive cocci drawn on 02/15/2021. Last chest x-ray from 03/07 does not show any new infectious process Started on broad-spectrum IV antibiotics with Zosyn and vancomycin day #1 #Hypotension, active and recurrent Likely multifactorial with the patient's cirrhosis playing a large role Patient requiring Levophed overnight up to 2 mcg. We have tried to titrate him off this this morning but it was not tolerated. Continue midodrine 15 mg 3 times a day #Decompensated liver cirrhosis, unknown cause/possibly FLOOD With current ascites requiring weekly paracentesis and oliguric renal failure requiring regular hemodialysis With hepatorenal syndrome, with a history of hepatic encephalopathy, episodes of GI bleeding with history of gastric AVMs and GAVE. Last paracentesis on 03/02/2021 with 6 L removed. Per patient's outpatient child care center administrator, patient should not have more than 6 L removed during paracentesis and should receive 50 g of albumin after paracentesis. MELD-Na score today is 34. Current plan is for transfer to [facility] for evaluation for liver transplantation when a bed is available and patient is stable enough for transport. Today ammonia level elevated at 100, trending down from 177. Continue lactulose titrate to 3-4 bowel movements per day. Continues on Carafate, lactulose, rifaximin, midodrine. #Hematemesis, resolved Status post octreotide drip. Continue on IV Protonix twice daily and oral Carafate with meals. Zofran as needed for nausea. Due to no manufacturing quality manager on-call, Dr. Land/general surgery was consulted for evaluation. Patient is tolerating regular diet without recurrent hematemesis. #Possible SBP secondary to Staphylococcus hominis, resolved Culture from paracentesis fluid grew few staph hominis. May be contamination, but patient is high risk due to history of recurrent bacteremia and sepsis. Completed 5-day course of IV antibiotics with vancomycin, will discontinue today. 2 blood cultures drawn on 02/20/2021 are negative after 5 days Repeat blood culture drawn on 02/27/2021 is negative after 5 days. Continue SBP prophylaxis with 1 g IV ceftriaxone daily while inpatient #ESBL Klebsiella on sputum culture, resolved Status post course of IV Zosyn for 9 days. #Recurrent bacteremia on prior admissions Previously treated for E. coli bacteremia twice and most recently for Enterococcus faecalis and ESBL Klebsiella Blood cultures drawn on this admission have been negative. #Thrombocytopenia, improving Secondary to cirrhosis vs other cause. HIT Ab negative. Avoid anticoagulants Status post 1 unit platelets on 03/03/2021 due to hematemesis and platelet count less than 30,000. Transfuse platelets for platelet count less than 10,000 or less than 30,000 if bleeding. #Chronic anemia Patient has history of GI bleeding and anemia of chronic disease Episode of hematemesis on 03/03/2021 which appears to have resolved. Now stable status post 2 units PRBCs. Continue to trend H/H. Transfuse for hemoglobin less than 7 #History of pancreatic adenocarcinoma, currently in remission Status post chemotherapy and Whipple procedure in 2017, which was performed at [facility]. Follows with [facility] in [facility] #Diabetes mellitus Currently not on medication Developed after Whipple procedure, may be due to pancreatic insufficiency Consistent carb diet #CHF with preserved ejection fraction Avoid diuretics due to hypotension Fluid management with HD #Deconditioning and poor nutritional status PT/OT ordered Continue with protein supplementation at meals DVT prophylaxis: Teds and sequentials. Avoid medical prophylaxis due to thrombocytopenia CODE STATUS: Patient has transitioned today to DNR/DNI status. Disposition: Patient accepted for transfer to [facility] for evaluation for liver transplant, please see dc summary. VS,Fishbone, I+O VS, Fishbone, I+O Laboratory Tests 03/08/21 03:18 03/08/21 08:16 03/08/21 08:17 Vital Signs Date Time Temp Pulse Resp B/P (MAP) Pulse Ox O2 Delivery O2 Flow Rate FiO2 03/08/21 16:30 97 12 123/71 (88) 97 Room Air 03/08/21 12:15 97.8 03/08/21 06:30 2.0 03/02/21 21:20 96 I&O- Last 24 Hours up to 6 AM 03/08/21 06:00 Intake Total 1000.0 ml Output Total 550 ml Balance 450.0 ml KVNG CAMPA D.O. Mar 08, 2021 16:55
--- NOTE | 2021-03-08 17:58 | IPNPDOC ---
Text Note Date of Service The patient was seen on 03/08/21. NOTE Interval update: - [facility] in campus his contacted us informed us that they have accepted patient on transfer and that has become available - Evaluation of patient this afternoon at approximately 4 PM reveals the patient is oriented to person, place and time - Informed patient of this new information, and he reports that he would like to be transferred there for further evaluation - Also relayed this information to patient's sons, Kirill & Massimo Glez and , Karen Glez - Patient has been discontinued from Levophed at 2 PM is been hemodynamically stable since that point - Currently he remains on CRRT and this will be discontinued shortly at around 6:30 PM in anticipation for transfer likely at 7 PM - I have stressed that the transfer is a long duration from [place] to [facility] - and that this carries a very large risk of adverse outcomes given that he has recently just come off levophed - Patient and family have accepted this risk and at this point he is hemodynamically stable for transfer VS,Jim, I+O VS, Georgibone, I+O Laboratory Tests 03/08/21 03:18 03/08/21 08:16 03/08/21 08:17 Vital Signs Date Time Temp Pulse Resp B/P (MAP) Pulse Ox O2 Delivery O2 Flow Rate FiO2 03/08/21 16:30 97 12 123/71 (88) 97 Room Air 03/08/21 12:15 97.8 03/08/21 06:30 2.0 03/02/21 21:20 96 I&O- Last 24 Hours up to 6 AM 03/08/21 06:00 Intake Total 1000.0 ml Output Total 550 ml Balance 450.0 ml DHAVAL VAUGHAN MD Mar 08, 2021 17:58
[2021-03-08 18:45] LABS: HEMATOCRIT 26.1 % (42.0-52.0); MEAN CORPUSCULAR HEMOGLOBIN 30.5 pg (27.0-33.0); MEAN CORPUSCULAR HGB CONC 34.5 g/dl (32.0-36.5); MEAN CORPUSCULAR VOLUME 88.5 fl (80.0-96.0); RED BLOOD COUNT 2.95 10^6/uL (4.30-6.10); WHITE BLOOD COUNT 20.8 10^3/uL (4.0-10.0)
[2021-03-08 18:55] LABS: CALCIUM LEVEL 7.9 MG/DL (8.8-10.2); CREATININE FOR GFR 3.04 MG/DL (0.70-1.30); GLOMERULAR FILTRATION RATE 22.2 (>49); PHOSPHORUS LEVEL 2.4 MG/DL (2.5-4.9); POTASSIUM SERUM 3.4 MEQ/L (3.5-5.1)
[2021-03-08 18:58] LABS: PLATELET COUNT, AUTOMATED 84 10^3/uL (150-450)
[2021-03-08] MEDS ORDERED: CALCIUM GLUCONATE 1,000 MG in NS 100 ML IV ONE (19:00)
--- NOTE | 2021-03-08 19:43 | DS.PDOC ---
Discharge Summary General Date of Admission Feb 20, 2021 at 19:59 Date of Discharge March 08, 2021 Primary Care Physician: KVNG CAMPA D.O. Attending Physician: DHAVAL VAUGHAN MD Discharge Summary PROCEDURES PERFORMED DURING STAY: Dialysis permacath placement on 02/24/2021, paracentesis on 02/22/2021 and 03/02/2021, PICC line insertion on 02/23/2021 ADMITTING DIAGNOSES: KAILEE on CKD stage III with oliguria Liver cirrhosis decompensated with recurrent ascites and acute hepatic encephalopathy Acute on chronic hypervolemic hyponatremia Chronic diarrhea Lactic acidosis History of bacteremia with E. coli, E. 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 coli, E. faecium, and ESBL Klebsiella Deconditioning Normocytic anemia Chronic hypotension Chronic heart failure with grade 1 diastolic dysfunction and preserved ejection fraction Diabetes mellitus Hematemesis, resolved Thrombocytopenia History of pancreatic adenocarcinoma status post chemotherapy and Whipple in 2017 at [facility] COMPLICATIONS/CHIEF COMPLAINT: Kailee, Ascites. HISTORY OF PRESENT ILLNESS: 66-year-old male with history of cirrhosis secondary to unknown cause/possibly FLOOD, and complications of hepatic encephalopathy, recurrent ascites requiring weekly paracentesis, episodes of GI bleeding with history of gastric AVMs and GAVE, thrombocytopenia, with additional past medical history of pancreatic adenocarcinoma status post Whipple procedure and chemotherapy in 2017, recurrent bacteremia, diabetes mellitus, chronic anemia, and diastolic CHF who presented to the hospital with inability to urinate. He had had recent admission from February 07 to February 17 due to severe sepsis with bacteremia secondary to Enterococcus faecium and ESBL Klebsiella. He was discharged to complete 6 additional days of antibiotic coverage with linezolid based on sensitivities. He was also discharged at that time with a Rivera catheter due to urinary retention. The patient noticed at home decreased urinary output through his Rivera catheter. Despite flushing the catheter and exchanging the Rivera in the emergency department, the patient had no significant urine output. The patient also noted difficulty since discharge home ambulating with his walker due to worsening generalized weakness. He complained of worsening abdominal distention and poor appetite. The patient was admitted to [facility] for management of oliguric renal failure on February 20, 2021. HOSPITAL COURSE: On admission to the hospital, nephrology was consulted and gave recommendations to continue with the patient's home midodrine and add albumin infusions and octreotide drip. The patient's lactulose was held on admission due to his persistent diarrhea and concern for intravascular dehydration with poor oral intake. The patient was set up for paracentesis and started on IV Zosyn to cover for possible SBP. The patient was started on rifaximin due to ac kenaitze hepatic encephalopathy on presentation and the need to hold the patient's lactulose due to possible intravascular dehydration. On 02/22/2021, paracentesis was completed. Nephrology felt that this might help improve urine output by taking some pressure off of the renal vasculature. However, there is no improvement of urine output at this point. A trial of IV Lasix was given and did not improve urine output. At this point it was decided that the patient would require hemodialysis. Hemodialysis catheter was placed by vascular surgery. The patient had his first hemodialysis session on 02/24 with 1 L removed. He was brought again for dialysis on 02/25. However, the patient continued to have persistent hypotension and did not tolerate HD. He was noted to have staph hominis in his ascitic fluid and ESBL Klebsiella in his sputum. He was continued on IV Zosyn for a total of 9 days and IV vancomycin for a total of 5 days to treat these 2 infections. After he completed treatment for SBP, the patient was maintained on SBP prophylaxis with 1 g IV ceftriaxone daily. His blood pressure did improve after completion of antibiotic courses. He was trialed again on hemodialysis on 03/01 and had 1 L removed. He was continued on dialysis at this point. On 03/03, the patient developed hematemesis x1 episode and was restarted on octreotide drip as well as Protonix twice daily IV. The patient did not have any further episodes of vomiting. He did require 2 units PRBCs and 1 unit of platelets. After transfusion, the patient's hemoglobin and platelet levels improved and stabilized. On 03/07/2021, the patient was noted to have worsening confusion. He had still been off of lactulose at this point. Ammonia level was found to be elevated at 177. He was restarted on lactulose and NG tube was placed due to lethargy and some vomiting of bile with concern for aspiration. His ammonia level has trended down and his mental status has improved. On reevaluation that day, patient was noted to be tachycardic. Repeat lab work and blood cultures were also drawn and the patient was started on broad-spectrum antibiotic coverage with IV Zosyn. Overnight on 03/07/2021, the patient was noted to be calm severely hypotensive. He was transfused with 4 units of albumin with no improvement. He was also given a dose of Solu-Cortef with no improvement. He was then transferred to ICU and started on Levophed drip. He required only 2 mcg of Levophed to maintain maps above 60. The patient was also noted to have a new leukocytosis and lactic acidosis. His lactic acid did trend down. On 03/08/2021, it was decided to start CRRT as the patient would not likely tolerate intermittent hemodialysis. CRRT was initiated at 1230 on 03/08. The patient's antibiotic coverage was also broadened to include vancomycin with the IV Zosyn that was started the day prior. He was able to be titrated off Levophed around 1400 on 03/08 and his blood pressure stabilized with maps maintained above 60. After extensive discussion throughout the patient's admission with himself and his family, it was decided to change his CODE STATUS to DNR/DNI. However, he still felt that he wanted to pursue aggressive medical treatment for his care up until that point. There was discussion throughout the patient's admission with liver transplant centers to get him transferred for evaluation. He was excepted for transfer to [place] and a bed became available on 03/08/2021. We discussed in detail the risk involved in transferring the patient and his current condition given the long distance to [facility] and the patient's recent decompensation in the past 24 to 48 hours. The patient and his family understood this risk and would still like to pursue transfer to [facility] as soon as possible. The patient will be discharged and transferred to [facility] for further evaluation and consideration for liver transplantation. DISCHARGE MEDICATIONS: Please see below. ALLERGIES: Please see below. PHYSICAL EXAMINATION ON DISCHARGE: VITAL SIGNS: Please see below. GENERAL: Somewhat lethargic, in no acute distress. Patient appears thin and tired with some muscle wasting. HEENT: Normocephalic, atraumatic, moist mucous membranes NECK: Supple, trachea midline, no lymphadenopathy CARDIOVASCULAR: Regular rate and rhythm, normal S1 and S2. No murmurs, rubs, or gallops RESPIRATORY: Clear to auscultation bilaterally with equal air entry bilaterally. No wheezing, rhonchi, or rales. ABDOMEN: Soft, nondistended. Nontender, bowel sounds present. EXTREMITIES: 1+ pitting edema in bilateral lower extremities extending up to the hips NEUROLOGIC: Patient is alert and oriented to person, place. He is mildly lethargic but responds appropriately to questions. LABORATORY DATA: Please see below. IMAGING: -CT abdomen / pelvis 02/20: 1. Changes related to cirrhosis including severe ascites. Findings are unchanged compared to prior examination. 2. No further acute abdominopelvic pathology appreciated. -Abdomen US 02/21: 1. No portal vein thrombosis. 2. Cirrhotic liver. 3. Large volume of ascites. 4. Pneumobilia, which is better visualized in the CT abdomen and pelvis on 02/20/2021. -CXR 02/21: No acute cardiopulmonary process appreciated. -Paracentesis 02/22: Ultrasound-guided paracentesis with removal of 8250 mL of yellow ascites. -PICC 02/23: PICC line insertion into the left lateral brachial vein. -Paracentesis 03/02: Technically successful ultrasound-guided paracentesis yielding 6000 mL of saul fluid. PROGNOSIS: Guarded ACTIVITY: Bedrest. DIET: NPO except meds DISCHARGE PLAN/DISPOSITION: Transfer to [facility] for evaluation for liver transplantation DISCHARGE CONDITION: Stable. TIME SPENT ON DISCHARGE: 40 minutes. Vital Signs/I&Os Vital Signs Date Time Temp Pulse Resp B/P (MAP) Pulse Ox O2 Delivery O2 Flow Rate FiO2 03/08/21 16:30 97 12 123/71 (88) 97 Room Air 03/08/21 12:15 97.8 03/08/21 06:30 2.0 03/02/21 21:20 96 I&O- Last 24 Hours up to 6 AM 03/08/21 06:00 Intake Total 1000.0 ml Output Total 550 ml Balance 450.0 ml Laboratory Data Labs 24H Laboratory Tests 2 03/07/21 18:16: Urine Color (KARINA) YELLOW, Urine Appearance (KARINA) HAZYH, Urine pH (KARINA) 5.0, Urine Specific [place] (KARINA) 1.020, Urine Protein 1+H, Bedside Urine Glucose (UA) NEGATIVE, Bedside Urine Ketones (LAB) NEGATIVE, Bedside Urine Blood POSITIVEH, Bedside Urine Nitrite (LAB) NEGATIVE, Bedside Urine Bilirubin (LAB) NEGATIVE, Bedside Urine Urobilinogen (LAB) NORMAL, Bedside Urine Leukocyte Esterase (L POSITIVEH, Urine Sediment Examination PERFORMED, Urine RBC 5-7H, Urine WBC 1-3, Urine Squamous Epithelial Cells NONE SEEN, Urine Bacteria SMALL AMOUNTH, Urine Hyaline Casts NONE SEEN, Urine Yeast SMALL AMOUNTH 03/07/21 18:23: Lactic Acid Level 6.2*H 03/07/21 21:51: Total Creatine Kinase 23#L, Creatine Kinase MB 1.3, Creatine Kinase MB Relative Index 5.65H, Troponin I 0.02 03/08/21 03:18: Lactic Acid Level 5.2*H, Total Creatine Kinase 37L, Creatine Kinase MB 1.2, Creatine Kinase MB Relative Index 3.24, Troponin I 0.03#, Immature Granulocyte % (Auto) 0.5, Neutrophils (%) (Auto) 91.1H, Lymphocytes (%) (Auto) 2.6L, Monocytes (%) (Auto) 5.7, Eosinophils (%) (Auto) 0.0, Basophils (%) (Auto) 0.1, Neutrophils # (Auto) 17.6H, Lymphocytes # (Auto) 0.5L, Monocytes # (Auto) 1.1H, Eosinophils # (Auto) 0.0, Basophils # (Auto) 0.0, Nucleated Red Blood Cells % (auto) 0.0, Immature Platelet Fraction 4.9, Prothrombin Time 26.1H, Prothromb Time International Ratio 2.35, Blood Gas Bicarbonate Standard 16.5, Venous Blood pH 7.351, Venous Blood Partial Pressure CO2 26.8L, Venous Blood Partial Pressure O2 81.9H, Venous Blood Total Carbon Dioxide 15.3L, Venous Blood HCO3 14.5L, Venous Blood Oxygen Saturation 95.6H, Venous Blood Base Excess -9.8L, Anion Gap 16, Glomerular Filtration Rate 15.7L, Calcium Level 8.0L, Magnesium Level 1.9, Total Bilirubin 3.1H, Aspartate Amino Transf (AST/SGOT) 47H, Alanine Aminotransferase (ALT/SGPT) 28, Alkaline Phosphatase 84, Total Protein 4.9L, Albumin 3.0L, Albumin/Globulin Ratio 1.6 03/08/21 03:28: Bedside Glucose (Misc Panel) 139H 03/08/21 08:16: Anion Gap 11, Glomerular Filtration Rate 15.7L, Calcium Level 8.4L, Magnesium Level 2.1, Total Bilirubin 3.0H, Aspartate Amino Transf (AST/SGOT) 44H, Alanine Aminotransferase (ALT/SGPT) 28, Alkaline Phosphatase 85, Ammonia 100H, C- Reactive Protein, Quantitative 3.84H, Total Protein 5.1L, Albumin 2.8L, Albumin/Globulin Ratio 1.2 03/08/21 08:17: Immature Granulocyte % (Auto) 0.5, Neutrophils (%) (Auto) 92.0H, Lymphocytes (%) (Auto) 4.4L, Monocytes (%) (Auto) 3.1, Eosinophils (%) (Auto) 0.0, Basophils (%) (Auto) 0.0, Neutrophils # (Auto) 19.3H, Lymphocytes # (Auto) 0.9L, Monocytes # (Auto) 0.7, Eosinophils # (Auto) 0.0, Basophils # (Auto) 0.0, Nucleated Red Blood Cells % (auto) 0.0, Lactic Acid Followup at 4 Hours 3.8*H 03/08/21 08:41: Procalcitonin 23.42 CBC/BMP Laboratory Tests 03/08/21 03:18 03/08/21 08:16 03/08/21 08:17 FSBS Laboratory Tests Test 03/08/21 03:28 Range/Units Bedside Glucose (Misc Panel) 139 80-115 MG/DL Microbiology Microbiology 03/07/21 Urine Culture, Received Pending 03/07/21 Blood Culture - Preliminary, Resulted 03/07/21 Blood Culture - Preliminary, Resulted No growth after 24 hours . All specim... 03/04/21 Stool Occult Blood (ALONDRA) - Final, Complete 02/27/21 Blood Culture - Final, Complete NO GROWTH AFTER 5 DAYS Discharge Medications Scheduled Cholecalciferol (Vitamin D3) (Vitamin D3) 1,000 Unit Tablet, 1,000 UNITS PO QPM, (Reported) Lactulose (Lactulose) 10 Gm/15 Ml Solution, 30 ML PO TID, (Reported) MORNING/DINNER/BEDTIME Linezolid (Linezolid) 600 Mg Tablet, 600 MG PO BID, (Reported) started 02/17/21 x 6 days Midodrine HCl (Midodrine HCl) 5 Mg Tablet, 5 MG PO TID, (Reported) 8,12,16 Omeprazole (Omeprazole) 20 Mg Capsule.dr, 20 MG PO DAILY, (Reported) Sucralfate (Sucralfate) 1 Gm Tablet, 1 GM PO ACHS, (Reported) Tamsulosin HCl (Flomax) 0.4 Mg Capsule, 0.4 MG PO QHS, (Reported) Allergies Coded Allergies: No Known Allergies (Unverified , 01/08/18) KVNG CAMPA D.O. Mar 08, 2021 18:46
[2021-03-08] MEDS ORDERED: KCL 20MEQ IN 100ML SWI (KRUN) 20 MEQ in IV 1 EA IV SCH ×2 (20:00)
[2021-03-08] MEDS ORDERED: POTASSIUM PHOSPHATE INJ 15 MMOL in D5W 250 ML IV ONE (22:00)
== END 2021-03-08 22:44 | disposition short-term general hospital (02) | DRG 469 ==
LOC: M ED 12:50 → M ED INP 19:59 → ENRESERV 23:31 → M MSPAV 02-21 02:10 → M PCU 03-03 09:57
PROVIDERS: ADMIT Internal Medicine; ATTEND Internal Medicine
PROC: 0W9G3ZZ Drainage of Peritoneal Cavity, Percutaneous Approach (ICD-10-PCS; principal; 2021-02-22 13:24)
PROC: 02HV33Z Insertion of Infusion Device into Superior Vena Cava, Percutaneous Approach (ICD-10-PCS; 2021-02-23)
PROC: 02H633Z Insertion of Infusion Device into Right Atrium, Percutaneous Approach (ICD-10-PCS; 2021-02-24)
PROC: 0JH63XZ Insertion of Tunneled Vascular Access Device into Chest Subcutaneous Tissue and Fascia, Percutaneous Approach (ICD-10-PCS; 2021-02-24)
PROC: 5A1D70Z Performance of Urinary Filtration, Intermittent, Less than 6 Hours Per Day (ICD-10-PCS; 2021-02-24)
PROC: 30233R1 Transfusion of Nonautologous Platelets into Peripheral Vein, Percutaneous Approach (ICD-10-PCS; 2021-02-25)
PROC: 0W9G3ZZ Drainage of Peritoneal Cavity, Percutaneous Approach (ICD-10-PCS; 2021-03-02)
PROC: 30233J1 Transfusion of Nonautologous Serum Albumin into Peripheral Vein, Percutaneous Approach (ICD-10-PCS; 2021-03-02)
PROC: 30233N1 Transfusion of Nonautologous Red Blood Cells into Peripheral Vein, Percutaneous Approach (ICD-10-PCS; 2021-03-02)
DX: N17.9 Acute kidney failure, unspecified (principal); K76.7 Hepatorenal syndrome; A41.9 Sepsis, unspecified organism; K65.2 Spontaneous bacterial peritonitis; K92.0 Hematemesis; R64 Cachexia; I95.89 Other hypotension; E87.2 Acidosis; I50.32 Chronic diastolic (congestive) heart failure; R18.8 Other ascites; D69.6 Thrombocytopenia, unspecified; E11.22 Type 2 diabetes mellitus with diabetic chronic kidney disease; E87.1 Hypo-osmolality and hyponatremia; K72.90 Hepatic failure, unspecified without coma; K74.60 Unspecified cirrhosis of liver; K75.81 Nonalcoholic steatohepatitis (NASH); K21.9 Gastro-esophageal reflux disease without esophagitis; R19.7 Diarrhea, unspecified; M62.84 Sarcopenia; D64.9 Anemia, unspecified; Z79.899 Other long term (current) drug therapy; Z90.49 Acquired absence of other specified parts of digestive tract; Z86.010 Personal history of colon polyps; Z85.07 Personal history of malignant neoplasm of pancreas; Z20.822 Contact with and (suspected) exposure to COVID-19; N18.30 Chronic kidney disease, stage 3 unspecified